=== PATIENT | male | born 1950 | race Two or more races ===

== ENCOUNTER 2016-10-25 09:12 | Inpatient (IN) | payer MEDICAID ==
[~2016-10-25] VITALS: Ht 172.7 cm; Wt 59.0 kg
[2016-10-25] MEDS ORDERED: NKM (09:18)
[2016-10-25 09:50] VITALS: BP 139/81
[2016-10-25 10:03] LABS: BASOPHILS % (AUTO) 1.2 % (0.0-2.0); EOSINOPHILS % (AUTO) 0.9 % (0.0-3.0); MEAN CORPUSCULAR HGB CONC 31.8 G/DL (32.0-36.0); MEAN CORPUSCULAR VOLUME 88 FL (80-99); MEAN PLATELET VOLUME 8.4 FL (6.5-10.1); MONOCYTES % (AUTO) 9.3 % (1.0-10.0); NEUTROPHILS % (AUTO) 75.7 % (45.0-75.0); PLATELET COUNT 217 K/UL (150-450); RED BLOOD COUNT 5.11 M/UL (4.70-6.10); RED CELL DISTRIBUTION WIDTH 13.9 % (11.6-14.8)
[2016-10-25 10:10] LABS: INR 0.9 (0.9-1.1); PROTHROMBIN TIME 9.6 SEC (9.30-11.50)
[2016-10-25 10:13] LABS: ALANINE AMINOTRANSFERASE 10 U/L (3-41); ALBUMIN/GLOBULIN RATIO 1.2 (1.0-2.7); ANION GAP 14 (5-15); ASPARTATE AMINO TRANSFERASE 16 U/L (5-40); CALCIUM 9.5 mg/dL (8.6-10.2); CARBON DIOXIDE 24 mEQ/L (20-30); CHLORIDE 87 mEQ/L (98-107); CREATININE 1.1 mg/dL (0.7-1.2); GLOMERULAR FILTRATION RATE > 60 mL/min (>60); HEMOLYSIS 8; POTASSIUM 4.7 mEQ/L (3.4-4.9); SODIUM 125 mEQ/L (135-145); TOTAL PROTEIN 7.7 g/dL (6.6-8.7); TROPONIN I < 0.30 ng/mL (<=0.30)
[2016-10-25 10:15] LABS: REFLEX LACTIC ACID YES OR NO YES
[2016-10-25 10:24] LABS: CKMB 4.4 ng/mL (< 6.7)
[2016-10-25] MEDS ORDERED: Ampicillin/Sulbactam Sod 3 GM in NS 110 ML IVPB ONE (10:45)
[2016-10-25] MEDS ORDERED: Unasyn 3gm Inj ONE (10:50)
[2016-10-25 11:15] VITALS: BP 128/79
--- NOTE | 2016-10-25 11:36 | Emergency Room Report ---
History of Present Illness General Chief Complaint: Pain Source: Patient, EMS Present Illness HPI 65-year-old male presents to ER complaining of right leg pain. Patient been on the street. He is homeless. Patient notes having the pain for a long time now. Pain is throbbing, 5/10, nonradiating. Per EMS there are maggots on the right leg. Patient is status post amputation of the left leg. Denies fevers or chills. Denies chest pain or shortness of breath. No aggravating relieving factors. Denies any other associated symptoms Allergies: Coded Allergies: No Known Allergies (Unverified , 11/16/14) Patient History Past Medical History: DM, HTN Past Surgical History: none Pertinent Family History: none Social History: Denies: alcohol use, drug use, smoking Immunizations: UTD Reviewed Nursing Documentation: PMH: Agreed, PSxH: Agreed Nursing Documentation-PMH Hx Hypertension: Yes Hx Diabetes: Yes Review of Systems All Other Systems: negative except mentioned in HPI Physical Exam Vital Signs Date Time Temp Pulse Resp B/P Pulse Ox O2 Delivery O2 Flow Rate FiO2 10/25/16 09:09 90 16 142/78 100 Room Air 10/25/16 09:50 98.5 Sp02 EP Interpretation: reviewed, normal General Appearance: no apparent distress, alert, GCS 15, non-toxic Head: normocephalic Eyes: bilateral eye PERRL, bilateral eye normal inspection ENT: normal ENT inspection Neck: normal inspection Respiratory: chest non-tender, lungs clear, normal breath sounds, speaking full sentences Cardiovascular #1: regular rate, rhythm, no edema Gastrointestinal: normal bowel sounds, non tender, soft, non-distended, no guarding, no rebound Rectal: deferred Genitourinary: no CVA tenderness Musculoskeletal: back normal, gait/station normal, normal range of motion, swelling - RLE, other - s/p amputation of LLE Neurologic: alert, oriented x3, responsive, motor strength/tone normal, sensory intact, speech normal Psychiatric: judgement/insight normal, memory normal, mood/affect normal, no suicidal/homicidal ideation Skin: other - induration/erythema of RLE. maggots noted Lymphatic: no adenopathy Medical Decision Making Diagnostic Impression: Primary Impression: Infestation, maggot Additional Impressions: Cellulitis of right lower extremity Weakness ER Course Hospital Course 65-year-old male presents to ED with pain/swelling to RLE Differential diagnoses include: Cellulitis, abscess, rash. Clinical course Patient placed on stretcher. After initial history and physical I ordered labs , blood Cx, UA, IVFs, CXR labs reviewed - no leukocytosis, Hb/Hct stable, Na low, lactate 2 EKG - sinus tachycardia no acute changes interpreted by me CXR - unremarkable Maggots noted to the right lower extremity antibiotics given. Case discussed with Dr Amador and he agreed to accept the patient to his service for further care and support Diagnosis - maggot infestation, cellulitis of RLE, weakness Patient admitted to floor in serious condition Labs Test 10/25/16 09:20 10/25/16 11:10 White Blood Count 12.0 K/UL (4.8-10.8) Red Blood Count 5.11 M/UL (4.70-6.10) Hemoglobin 14.3 G/DL (14.2-18.0) Hematocrit 45.0 % (42.0-52.0) Mean Corpuscular Volume 88 FL (80-99) Mean Corpuscular Hemoglobin 28.0 PG (27.0-31.0) Mean Corpuscular Hemoglobin Concent 31.8 G/DL (32.0-36.0) Red Cell Distribution Width 13.9 % (11.6-14.8) Platelet Count 217 K/UL (150-450) Mean Platelet Volume 8.4 FL (6.5-10.1) Neutrophils (%) (Auto) 75.7 % (45.0-75.0) Lymphocytes (%) (Auto) 13.0 % (20.0-45.0) Monocytes (%) (Auto) 9.3 % (1.0-10.0) Eosinophils (%) (Auto) 0.9 % (0.0-3.0) Basophils (%) (Auto) 1.2 % (0.0-2.0) Prothrombin Time 9.6 SEC (9.30-11.50) Prothromb Time International Ratio 0.9 (0.9-1.1) Activated Partial Thromboplast Time 28 SEC (23-33) Sodium Level 125 mEQ/L (135-145) Potassium Level 4.7 mEQ/L (3.4-4.9) Chloride Level 87 mEQ/L (98-107) Carbon Dioxide Level 24 mEQ/L (20-30) Anion Gap 14 (5-15) Blood Urea Nitrogen 17 mg/dL (7-23) Creatinine 1.1 mg/dL (0.7-1.2) Estimat Glomerular Filtration Rate > 60 mL/min (>60) Glucose Level 281 mg/dL (74-106) Lactic Acid Level 2.50 mmol/L (0.66-2.22) Calcium Level 9.5 mg/dL (8.6-10.2) Total Bilirubin 0.7 mg/dL (0.0-1.2) Aspartate Amino Transf (AST/SGOT) 16 U/L (5-40) Alanine Aminotransferase (ALT/SGPT) 10 U/L (3-41) Alkaline Phosphatase 183 U/L (40-129) Total Creatine Kinase 148 U/L (38-174) Creatine Kinase MB 4.4 ng/mL (< 6.7) Creatine Kinase MB Relative Index 2.9 Troponin I < 0.30 ng/mL (<=0.30) Pro-B-Type Natriuretic Peptide 165 pg/mL (0-125) Total Protein 7.7 g/dL (6.6-8.7) Albumin 4.2 g/dL (3.5-5.2) Globulin 3.5 g/dL Albumin/Globulin Ratio 1.2 (1.0-2.7) EKG Diagnostic Results Rate: tachycardiac Rhythm: NSR ST Segments: no acute changes ASA given to the pt in ED: No Rhythm Strip Diag. Results EP Interpretation: yes Rhythm: NSR, no PVC's, no ectopy Chest X-Ray Diagnostic Results Chest X-Ray Diagnostic Results : Chest X-Ray Ordered: Yes # of Views/Limited/Complete: 1 View Indication: Other - weakness EP Interpretation: Yes Interpretation: no consolidation, no effusion, no pneumothorax, no acute cardiopulmonary disease Impression: No acute disease Interpreting ER Provider: Electronically signed by Daniel Roy MD Last Vital Signs Date Time Temp Pulse Resp B/P Pulse Ox O2 Delivery O2 Flow Rate FiO2 10/25/16 11:15 89 18 128/79 100 Room Air 10/25/16 09:50 98.5 Status: improved Disposition: ADMITTED INPATIENT Condition: Serious Referrals: NOT CHOSEN EMY/,REFERRING (PCP) DANIEL ROY M.D. Oct 25, 2016 11:36
[2016-10-25] MEDS ORDERED: NovoLOG Insulin Flexpen SUBQ SCH (11:50)
[2016-10-25 12:47] VITALS: BP 156/83
[2016-10-25] MEDS ORDERED: Vancomycin 750mg/D5W 275ml IVPB ONE ×2 (14:00)
[2016-10-25] MEDS: Cefepime HCl 1 GM in D5W 55 ML IVPB SCH ×2 (15:40→23:02)
[2016-10-25] MEDS: NovoLOG Insulin Flexpen SUBQ SCH ×4 (16:17→21:38)
[2016-10-25 16:20] VITALS: BP 133/65
[2016-10-25] MEDS ORDERED: Tubing IV Secondary IV ONE (17:19)
[2016-10-25] MEDS ORDERED: NS 275ml ONE (17:19)
[2016-10-25 20:00] VITALS: BP 136/72
[2016-10-25] MEDS: Heparin 5000 units/ml inj SUBQ SCH (21:34)
[2016-10-26] VITALS: BP 136/62
[2016-10-26] MEDS: Vancomycin 500mg/D5W 110ml IVPB SCH ×4 (02:21→14:00)
--- NOTE | 2016-10-26 02:45 | Consultation ---
DATE OF CONSULTATION: 10/25/2016 INFECTIOUS DISEASE CONSULTATION This consult is for coverage of Dr. Rosales. PRIMARY ATTENDING PHYSICIAN: Colten Amador M.D. REASON FOR CONSULT: Right leg cellulitis with myasis. HISTORY OF PRESENT ILLNESS: This is a 65-year-old male admitted today. The patient is homeless, noticed some pain in right lower extremity, had erythema and discharge from the wound since one week ago. He was recently in the nursing facility, just released two weeks ago. PAST MEDICAL HISTORY: Significant for diabetes mellitus type 2. ALLERGIES: No known drug allergies. MEDICATIONS: Getting vancomycin, heparin, insulin, and sodium chloride. SOCIAL HISTORY: The patient is homeless. He is originally from [place]. He smokes two cigarettes a day. Denies alcohol or drug abuse. REVIEW OF SYSTEMS: No fever. No chills. No coughing. No shortness of breath. No nausea. No vomiting. No diarrhea. No problem in passing urine. PHYSICAL EXAMINATION: VITAL SIGNS: Temperature 98.4, pulse 89, and blood pressure 166/83. GENERAL APPEARANCE: He seems to be thin. No acute distress. HEAD AND NECK: No oral lesion. Mouth, no teeth or dentures. HEART: Regular. LUNGS: Clear. ABDOMEN: Soft and nontender. EXTREMITIES: Have erythema and ulceration in the right lower extremity. There are tiny maggots below the skin. LABORATORY AND DIAGNOSTIC DATA: WBC 12,000, hemoglobin 14.3, hematocrit 45, and platelets 217,000. Sodium 125, potassium 4.7, chloride 87, bicarbonate 24, BUN 17, creatinine 1.1, and glucose of 281. IMPRESSION: Right lower extremity cellulitis with myosis. The patient is diabetic and has hypoglycemia. He is homeless. RECOMMENDATION: Continue with vancomycin. We will start on cefepime. We will obtain culture from the wound. At the end of my exam, I thank Dr. Amador for involving me in the care of this patient. Minh Duque M.D. DR: JAS JOB#: [id number] CC: JAQUAN
--- NOTE | 2016-10-26 03:30 | History and Physical Report ---
DATE OF ADMISSION: 10/25/2016 REASON FOR ADMISSION: Right lower extremity cellulitis. HISTORY OF PRESENT ILLNESS: This is a homeless male, age 65. He has pain in his right leg. He was seen by the paramedics in the field and noted to have maggots on the leg as well as significant redness and drainage. He has had a prior infection of the left leg that resulted in amputation. PAST MEDICAL HISTORY: Diabetes mellitus type 2, hypertension, and peripheral artery disease. ALLERGIES: None known. MEDICATIONS: Prior to admission, none. SOCIAL HISTORY: Denies smoking, alcohol, or substance abuse. FAMILY HISTORY: Noncontributory. REVIEW OF SYSTEMS: A 10-point review of systems performed, pertinent data as outlined above, otherwise all systems negative. PHYSICAL EXAMINATION: VITAL SIGNS: Blood pressure 142/78, heart rate 90, respirations 16, and no fevers. HEENT: Conjunctivae are pink. Oropharynx clear. NECK: Supple. Jugular venous pressure normal. LUNGS: Clear. CARDIAC: Regular rhythm and rate. Normal S1 and S2 with no murmur. ABDOMEN: Soft and nontender. EXTREMITIES: Left lower extremity BKA. Right lower extremity induration and erythema below the knee with some maggots noted. NEUROLOGIC: Reveals symmetric strength and no cognitive impairment. LABORATORY DATA: White count 12, hemoglobin 14. Sodium 125, potassium 4.7, chloride 87, bicarbonate 24, BUN 17, creatinine 1.1, and glucose 281. Lactic acid 2.5. IMPRESSION: 1. Right lower extremity cellulitis with maggot infestation. 2. Type 2 diabetes mellitus with uncontrolled blood glucose. 3. Hypertension, untreated. 4. Hypovolemia. 5. Dehydration. 6. Hyponatremia. 7. Hypochloremia. 8. Chronic diastolic congestive heart failure. 9. Lactic acidosis. PLAN: Inpatient stay. Panculture. Broad-spectrum antibiotics. Wound care. Infectious Disease consultation. Saline hydration. Insulin coverage by sliding scale. Metabolic profile. Hemoglobin A1c. Social service evaluation for assistance with placement. Colten Amador M.D. DR: Betty JOB#: [id number] CC:
[2016-10-26 04:00] VITALS: BP 137/71
[2016-10-26] MEDS: NovoLOG Insulin Flexpen SUBQ SCH ×4 (06:14→21:02)
[2016-10-26 07:08] LABS: EOSINOPHILS % (AUTO) 1.4 % (0.0-3.0); LYMPHOCYTES % (AUTO) 18.8 % (20.0-45.0); MEAN CORPUSCULAR HEMOGLOBIN 30.2 PG (27.0-31.0); MEAN CORPUSCULAR HGB CONC 34.2 G/DL (32.0-36.0); MEAN CORPUSCULAR VOLUME 88 FL (80-99); MEAN PLATELET VOLUME 8.3 FL (6.5-10.1); NEUTROPHILS % (AUTO) 66.7 % (45.0-75.0); PLATELET COUNT 170 K/UL (150-450); RED BLOOD COUNT 3.67 M/UL (4.70-6.10); RED CELL DISTRIBUTION WIDTH 13.8 % (11.6-14.8); WHITE BLOOD COUNT 8.3 K/UL (4.8-10.8)
[2016-10-26 07:25] LABS: ALANINE AMINOTRANSFERASE 6 U/L (3-41); ANION GAP 13 (5-15); ASPARTATE AMINO TRANSFERASE 15 U/L (5-40); CALCIUM 7.7 mg/dL (8.6-10.2); CARBON DIOXIDE 21 mEQ/L (20-30); CHLORIDE 98 mEQ/L (98-107); CREATININE 0.8 mg/dL (0.7-1.2); GLOMERULAR FILTRATION RATE > 60 mL/min (>60); HEMOLYSIS 3; POTASSIUM 3.7 mEQ/L (3.4-4.9); SODIUM 132 mEQ/L (135-145); TOTAL PROTEIN 5.2 g/dL (6.6-8.7)
[2016-10-26 07:27] LABS: THYROID STIMULATING HORMONE 0.762 uIU/mL (0.300-4.500)
[2016-10-26 08:15] VITALS: BP 128/70
--- NOTE | 2016-10-26 08:31 | Diagnostic Imaging Report ---
Indication: Dyspnea Comparison: 11/16/14 A single view chest radiograph was obtained. Findings: Cardiomediastinal appearance is within normal limits for age. Pulmonary vascularity is appropriate. The diaphragmatic contour is smooth and costophrenic angles are sharp. No pleural effusions are identified. The bones are obtained. Impression: No acute findings
[2016-10-26] MEDS: Cefepime HCl 1 GM in D5W 55 ML IVPB SCH ×2 (08:43→21:01)
[2016-10-26] MEDS: Hydrogen Peroxide 473ml Bottle TOPIC SCH (08:44)
[2016-10-26] MEDS: Heparin 5000 units/ml inj SUBQ SCH ×2 (08:44→21:02)
--- NOTE | 2016-10-26 10:39 | Infectious Diseases Prog Note ---
Assessment/Plan Assessment/Plan antibiotics : vancomycin iv, cefepime A 1. right leg cellulitis 2. DM P 1. continue vancomycin iv, cefepime 2. will follow up cultures Subjective ROS Limited/Unobtainable: Yes Allergies: Coded Allergies: No Known Allergies (Unverified , 11/16/14) Objective Vital Signs Last 24 Hour Vital Signs Date Time Temp Pulse Resp B/P Pulse Ox O2 Delivery O2 Flow Rate FiO2 10/26/16 08:15 98.6 84 20 128/70 96 Room Air 10/26/16 04:00 98.8 97 18 137/71 97 Room Air 10/26/16 00:00 98.4 96 18 136/62 96 Room Air 10/25/16 20:00 98.2 97 18 136/72 97 Room Air 10/25/16 16:20 100.4 104 18 133/65 97 Room Air 10/25/16 12:47 98.4 117 20 156/83 100 Room Air 10/25/16 12:23 98.5 89 18 128/79 100 Room Air 10/25/16 11:15 89 18 128/79 100 Room Air Height (Feet): 5 Height (Inches): 8.00 Weight (Pounds): 130 Respiratory/Chest: lungs clear Cardiovascular: normal rate, regular rhythm, no gallop/murmur Abdomen: soft, non tender Laboratory Tests Test 10/25/16 11:10 10/26/16 04:40 Lactic Acid Level 1.20 mmol/L (0.66-2.22) White Blood Count 8.3 K/UL (4.8-10.8) Red Blood Count 3.67 M/UL (4.70-6.10) L Hemoglobin 11.1 G/DL (14.2-18.0) L Hematocrit 32.4 % (42.0-52.0) L Mean Corpuscular Volume 88 FL (80-99) Mean Corpuscular Hemoglobin 30.2 PG (27.0-31.0) Mean Corpuscular Hemoglobin Concent 34.2 G/DL (32.0-36.0) Red Cell Distribution Width 13.8 % (11.6-14.8) Platelet Count 170 K/UL (150-450) Mean Platelet Volume 8.3 FL (6.5-10.1) Neutrophils (%) (Auto) 66.7 % (45.0-75.0) Lymphocytes (%) (Auto) 18.8 % (20.0-45.0) L Monocytes (%) (Auto) 12.0 % (1.0-10.0) H Eosinophils (%) (Auto) 1.4 % (0.0-3.0) Basophils (%) (Auto) 1.0 % (0.0-2.0) Sodium Level 132 mEQ/L (135-145) L Potassium Level 3.7 mEQ/L (3.4-4.9) Chloride Level 98 mEQ/L (98-107) Carbon Dioxide Level 21 mEQ/L (20-30) Anion Gap 13 (5-15) Blood Urea Nitrogen 10 mg/dL (7-23) Creatinine 0.8 mg/dL (0.7-1.2) Estimat Glomerular Filtration Rate > 60 mL/min (>60) Glucose Level 200 mg/dL (74-106) H Hemoglobin A1c 8.2 % (< 6.0) H Calcium Level 7.7 mg/dL (8.6-10.2) L Total Bilirubin 0.4 mg/dL (0.0-1.2) Aspartate Amino Transf (AST/SGOT) 15 U/L (5-40) Alanine Aminotransferase (ALT/SGPT) 6 U/L (3-41) Alkaline Phosphatase 113 U/L (40-129) Total Protein 5.2 g/dL (6.6-8.7) #L Albumin 2.7 g/dL (3.5-5.2) L Globulin 2.5 g/dL Albumin/Globulin Ratio 1.0 (1.0-2.7) Vitamin B12 Level 682 pg/mL (211-946) Folate Pending Thyroid Stimulating Hormone (TSH) 0.762 uIU/mL (0.300-4.500) CLIFTON HORN Oct 26, 2016 10:39
[2016-10-26 12:15] VITALS: BP 141/80
[2016-10-26 15:50] VITALS: BP 144/79
[2016-10-26 19:54] VITALS: BP 154/77
[2016-10-27] VITALS: BP 148/76
--- NOTE | 2016-10-27 01:00 | Progress Note ---
DATE: 10/26/2016 INTERNAL MEDICINE PROGRESS NOTE SUBJECTIVE: Right leg is examined and there is no that was extracted earlier. Pain is decreased. OBJECTIVE: VITAL SIGNS: Temperature max 100.4, blood pressure 128/70, heart rate 84, and respiratory rate 20. LUNGS: Clear. CARDIAC: Regular. No new murmur. ABDOMEN: Soft. EXTREMITIES: Left BKA. Right leg with erythema and drainage. LABORATORY DATA: White count 8.3, hemoglobin 11.1. Sodium 132, potassium 3.7, bicarb 21, BUN 10, creatinine 0.8, and glucose 172 to 100 range. Albumin 2.7. Hemoglobin A1c 8.2. TSH 0.7. IMPRESSION: 1. Right lower extremity wound with cellulitis. 2. Type 2 diabetes mellitus, resolved. 3. Lactic acidosis. 4. Moderate protein-calorie malnutrition. 5. Homelessness. PLAN: Continue wound care. Antimicrobials. Saline hydration. Nutritional support with protein supplement. Await psych social worker assistance for ultimate placement once medically stable for discharge. Add oral hypoglycemic agents and titrate. Colten Amador M.D. DR: SAUL JOB#: [id number] CC:
[2016-10-27] MEDS: Vancomycin 500mg/D5W 110ml IVPB SCH ×2 (02:29)
[2016-10-27 03:55] VITALS: BP 98/48
[2016-10-27] MEDS: NovoLOG Insulin Flexpen SUBQ SCH ×4 (06:06→20:41)
[2016-10-27] MEDS: metFORMIN 500mg tab ORAL SCH ×2 (06:13→17:08)
[2016-10-27] MEDS ORDERED: Vancomycin 750mg/D5W 275ml IVPB SCH ×2 (08:00)
[2016-10-27 08:58] VITALS: BP 113/70
[2016-10-27] MEDS: Cefepime HCl 1 GM in D5W 55 ML IVPB SCH ×2 (10:12→21:19)
[2016-10-27] MEDS: Heparin 5000 units/ml inj SUBQ SCH ×2 (10:13→20:40)
[2016-10-27] MEDS: Hydrogen Peroxide 473ml Bottle TOPIC SCH (10:14)
[2016-10-27 12:54] VITALS: BP 143/76
--- NOTE | 2016-10-27 14:33 | Infectious Diseases Prog Note ---
Assessment/Plan Assessment/Plan A 1. right leg cellulitis 2. DM 3. Myasis P 1. continue vancomycin iv, cefepime 2. will follow up cultures Subjective ROS Limited/Unobtainable: No Constitutional: Reports: no symptoms Respiratory: Reports: no symptoms Gastrointestinal/Abdominal: Reports: no symptoms Musculoskeletal: Reports: other - in right leg, pain Allergies: Coded Allergies: No Known Allergies (Unverified , 11/16/14) Objective Vital Signs Last 24 Hour Vital Signs Date Time Temp Pulse Resp B/P Pulse Ox O2 Delivery O2 Flow Rate FiO2 10/27/16 12:54 99.3 79 19 143/76 97 Room Air 10/27/16 08:58 97.0 76 19 113/70 99 Room Air 10/27/16 03:55 98.2 74 18 98/48 97 Room Air 10/27/16 00:00 98.4 87 18 148/76 96 Room Air 10/26/16 19:54 99.1 89 18 154/77 97 Room Air 10/26/16 15:50 98.6 90 20 144/79 98 Room Air Height (Feet): 5 Height (Inches): 8.00 Weight (Pounds): 130 General Appearance: no acute distress HEENT: mucous membranes moist Respiratory/Chest: lungs clear Cardiovascular: normal rate Abdomen: soft, non tender Extremities: other - R leg dressing Neurologic/Psychiatric: alert, responsive Microbiology Date/Time Source Procedure Growth Status 10/25/16 09:20 Blood Blood Culture - Preliminary NO GROWTH AFTER 24 HOURS Resulted 10/25/16 09:20 Blood Blood Culture - Preliminary NO GROWTH AFTER 24 HOURS Resulted 10/25/16 09:20 Nasal Nares MRSA Culture - Final NO METHICILLIN RESISTANT STAPH AUREUS... Complete 10/25/16 14:45 Leg Right Gram Stain - Final Resulted 10/25/16 14:45 Wound Culture - Preliminary Gram Negative Bacillus 1 Gram Negative Bacillus 2 Gram Negative Bacillus 3 Staphylococcus Aureus Resulted 10/25/16 09:20 Rectum VRE Culture - Final NO VANCOMYCIN RESISTANT ENTEROCOCCUS ... Complete Laboratory Tests Test 10/27/16 00:50 Hemoglobin A1c 7.9 % (< 6.0) H Vancomycin Level Trough 6.0 ug/mL (5.0-12.0) Current Medications Medications (Trade) Dose Ordered Sig/Caden Route PRN Reason Start Time Stop Time Status Last Admin Dose Admin Acetaminophen (Tylenol) 650 mg EVERY 4 HOURS PRN ORAL fever/MENDOZA/pain 10/25/16 13:00 11/24/16 12:59 10/26/16 21:00 Cefepime HCl/ Dextrose (Maxipime/D5W) 55 ml @ 110 mls/hr EVERY 12 HOURS IVPB 10/25/16 15:00 11/01/16 14:59 10/27/16 10:12 Dextrose (Dextrose 50%) STAT PRN IV Hypoglycemia 10/25/16 13:00 11/24/16 12:59 Heparin Sodium (Porcine) (Heparin 5000 units/ml) 5,000 units EVERY 12 HOURS SUBQ 10/25/16 21:00 11/24/16 20:59 10/27/16 10:13 Hydrogen Peroxide (Hydrogen Peroxide) 1 applic DAILY TOPIC 10/26/16 09:00 11/25/16 08:59 10/27/16 10:14 Insulin Aspart (NovoLOG) BEFORE MEALS AND HS SUBQ 10/25/16 16:30 11/24/16 16:29 10/27/16 12:12 Metformin HCl 500 mg 500 mg BIAC ORAL 10/27/16 06:30 11/26/16 06:29 10/27/16 06:13 Sodium Chloride (Sodium Chloride 1000ml bag) 1,000 ml @ 150 mls/hr Q6H40M IV 10/25/16 13:00 11/24/16 12:59 10/27/16 13:09 Vancomycin HCl 1 ea 1 ea DAILY PRN MISC Per rx protocol 10/25/16 13:00 11/24/16 12:59 Vancomycin HCl/ Dextrose (Vancomycin/D5W) 275 ml @ 183.708 mls/hr Q24H IVPB 10/27/16 08:00 11/01/16 07:59 10/27/16 08:39 AUBREY ALEXIS Oct 27, 2016 14:33
[2016-10-27 16:02] VITALS: BP 152/81
[2016-10-27] MEDS: Vancomycin 750mg/D5W 275ml IVPB SCH ×2 (19:45)
[2016-10-27 20:00] VITALS: BP 147/61
[2016-10-28 00:21] VITALS: BP 144/70
--- NOTE | 2016-10-28 03:45 | Progress Note ---
DATE: 10/27/2016 INTERNAL MEDICINE PROGRESS NOTE SUBJECTIVE: The patient has no new complaints. He has been started on oral hypoglycemics. He is defervescing. Vitals are stable. Wound care ongoing, only one maggot noted today. PHYSICAL EXAMINATION: LUNGS: With good breath sounds. HEART: Regular rhythm and rate. Normal S1, S2. EXTREMITIES: Left BKA. Right foot dressing in place. LABORATORY DATA: Laboratories reviewed. IMPRESSION: 1. Right lower extremity wounds and cellulitis with maggots. 2. Type 2 diabetes mellitus. 3. Possible hypertension. PLAN: 1. Antibiotics. 2. Wound care. 3. Titrate oral hypoglycemics. 4. Social service for placement options. Colten Amador M.D. DR: DEONDRE JOB#: [id number] CC:
[2016-10-28 04:23] VITALS: BP 140/74
[2016-10-28] MEDS: metFORMIN 500mg tab ORAL SCH ×2 (05:47→17:08)
[2016-10-28] MEDS: NovoLOG Insulin Flexpen SUBQ SCH ×4 (05:50→20:14)
[2016-10-28] MEDS: Vancomycin 750mg/D5W 275ml IVPB SCH ×4 (07:59→21:42)
[2016-10-28 08:39] VITALS: BP 122/54
[2016-10-28] MEDS: Cefepime HCl 1 GM in D5W 55 ML IVPB SCH ×2 (10:10→20:12)
[2016-10-28] MEDS: Hydrogen Peroxide 473ml Bottle TOPIC SCH (10:10)
[2016-10-28] MEDS: Heparin 5000 units/ml inj SUBQ SCH ×2 (10:14→20:13)
[2016-10-28 11:59] VITALS: BP 149/79
--- NOTE | 2016-10-28 12:24 | Infectious Diseases Prog Note ---
"Assessment/Plan Assessment/Plan antibiotics : vancomycin iv, cefepime A 1. right leg cellulitis with staph aureus | serratia | providencia | morganella 2. DM 3. myasis P 1. continue vancomycin iv, cefepime 2. will follow up cultures Subjective Constitutional: Denies: chills, fever Respiratory: Denies: dry cough, shortness of breath Gastrointestinal/Abdominal: Denies: diarrhea, nausea, vomiting Musculoskeletal: Denies: pain Allergies: Coded Allergies: No Known Allergies (Unverified , 11/16/14) Objective Vital Signs Last 24 Hour Vital Signs Date Time Temp Pulse Resp B/P Pulse Ox O2 Delivery O2 Flow Rate FiO2 10/28/16 11:59 97.9 76 20 149/79 99 Room Air 10/28/16 08:39 98.6 74 20 122/54 96 Room Air 10/28/16 04:23 98.7 88 20 140/74 98 Room Air 10/28/16 00:21 98.8 88 20 144/70 98 Room Air 10/27/16 20:00 98.8 88 20 147/61 98 Room Air 10/27/16 16:02 98.1 84 21 152/81 97 Room Air 10/27/16 12:54 99.3 79 19 143/76 97 Room Air Height (Feet): 5 Height (Inches): 8.00 Weight (Pounds): 130 Respiratory/Chest: lungs clear Cardiovascular: normal rate, regular rhythm, no gallop/murmur Abdomen: soft, non tender Extremities: no edema Microbiology Date/Time Source Procedure Growth Status 10/25/16 14:45 Leg Right Gram Stain - Final Complete 10/25/16 14:45 Wound Culture - Final Providencia Stuartii Serratia Marcescens Morganella Morg Spp Morganii Staphylococcus Aureus Complete CLIFTON HORN Oct 28, 2016 12:24"
[2016-10-28 16:07] VITALS: BP 158/84
[2016-10-28 20:00] VITALS: BP 156/82
[2016-10-29] VITALS (7 sets, daily range): BP systolic 119–161; BP diastolic 59–90
--- NOTE | 2016-10-29 03:00 | Progress Note ---
DATE: 10/25/2016 No new distress, ongoing wound care. Afebrile, vital signs are stable. Cultures with multiple pathogens as noted in the report. The patient continues on broad-spectrum antibiotics for polymicrobial right lower extremity wound infection cellulitis. Glucose control slightly improved with addition of oral hypoglycemics. We will continue to follow clinical parameters. We will also continue efforts at placement once medically stable for a lower level of care. Colten Amador M.D. DR: DENIZ JOB#: [id number] CC:
[2016-10-29] MEDS: metFORMIN 500mg tab ORAL SCH ×2 (05:46→17:03)
[2016-10-29] MEDS: NovoLOG Insulin Flexpen SUBQ SCH ×4 (05:47→20:58)
[2016-10-29 07:24] LABS: BASOPHILS % (AUTO) 1.6 % (0.0-2.0); EOSINOPHILS % (AUTO) 2.5 % (0.0-3.0); LYMPHOCYTES % (AUTO) 26.8 % (20.0-45.0); MEAN CORPUSCULAR HEMOGLOBIN 29.4 PG (27.0-31.0); MEAN CORPUSCULAR HGB CONC 33.6 G/DL (32.0-36.0); MEAN CORPUSCULAR VOLUME 88 FL (80-99); MEAN PLATELET VOLUME 8.1 FL (6.5-10.1); MONOCYTES % (AUTO) 14.5 % (1.0-10.0); NEUTROPHILS % (AUTO) 54.6 % (45.0-75.0); PLATELET COUNT 194 K/UL (150-450); RED CELL DISTRIBUTION WIDTH 13.2 % (11.6-14.8); WHITE BLOOD COUNT 7.4 K/UL (4.8-10.8)
[2016-10-29 07:45] LABS: ALANINE AMINOTRANSFERASE 6 U/L (3-41); ANION GAP 10 (5-15); ASPARTATE AMINO TRANSFERASE 13 U/L (5-40); CARBON DIOXIDE 30 mEQ/L (20-30); CHLORIDE 97 mEQ/L (98-107); CREATININE 0.7 mg/dL (0.7-1.2); GLOMERULAR FILTRATION RATE > 60 mL/min (>60); HEMOLYSIS 3; MAGNESIUM 1.4 mg/dL (1.7-2.5); POTASSIUM 3.1 mEQ/L (3.4-4.9); SODIUM 137 mEQ/L (135-145)
[2016-10-29] MEDS: Vancomycin 750mg/D5W 275ml IVPB SCH ×2 (08:10)
[2016-10-29] MEDS: Cefepime HCl 1 GM in D5W 55 ML IVPB SCH ×2 (09:54→21:17)
[2016-10-29] MEDS: Heparin 5000 units/ml inj SUBQ SCH ×2 (09:55→20:49)
[2016-10-29] MEDS: Hydrogen Peroxide 473ml Bottle TOPIC SCH (09:55)
--- NOTE | 2016-10-29 12:40 | Cardiology Report ---
APPROVED REPORT EKG Measurement Heart [id number] Sinus tachycardia Otherwise normal ECG
--- NOTE | 2016-10-29 13:12 | Infectious Diseases Prog Note ---
Assessment/Plan Assessment/Plan A 1. right leg cellulitis with MSSA, serratia, Providencia & Morganella 2. DM 3. Myasis P 1. discontinue vancomycin iv, cefepime 2. start on PO Bactrim Subjective ROS Limited/Unobtainable: No Constitutional: Reports: no symptoms Respiratory: Reports: no symptoms Cardiovascular: Reports: no symptoms Gastrointestinal/Abdominal: Reports: no symptoms Musculoskeletal: Reports: other - in right leg, pain Allergies: Coded Allergies: No Known Allergies (Unverified , 11/16/14) Objective Vital Signs Last 24 Hour Vital Signs Date Time Temp Pulse Resp B/P Pulse Ox O2 Delivery O2 Flow Rate FiO2 10/29/16 11:59 97.9 70 18 147/74 97 Room Air 10/29/16 08:00 97.7 72 19 119/59 97 Room Air 10/29/16 05:08 97.7 66 18 128/90 95 Room Air 10/29/16 04:00 97.5 107 21 141/90 97 Nasal Cannula 2.0 10/29/16 00:00 98.2 81 18 153/80 99 Room Air 10/28/16 20:00 98.6 80 18 156/82 97 Room Air 10/28/16 16:07 98.1 76 20 158/84 97 Room Air Height (Feet): 5 Height (Inches): 8.00 Weight (Pounds): 130 General Appearance: no acute distress HEENT: mucous membranes moist Respiratory/Chest: lungs clear Cardiovascular: normal rate Abdomen: soft, non tender Extremities: no edema, other - R leg ulcer, left BKA Neurologic/Psychiatric: alert, responsive Laboratory Tests Test 10/28/16 20:20 10/29/16 04:40 Vancomycin Level Trough 9.6 ug/mL (5.0-12.0) White Blood Count 7.4 K/UL (4.8-10.8) Red Blood Count 3.80 M/UL (4.70-6.10) L Hemoglobin 11.2 G/DL (14.2-18.0) L Hematocrit 33.3 % (42.0-52.0) L Mean Corpuscular Volume 88 FL (80-99) Mean Corpuscular Hemoglobin 29.4 PG (27.0-31.0) Mean Corpuscular Hemoglobin Concent 33.6 G/DL (32.0-36.0) Red Cell Distribution Width 13.2 % (11.6-14.8) Platelet Count 194 K/UL (150-450) Mean Platelet Volume 8.1 FL (6.5-10.1) Neutrophils (%) (Auto) 54.6 % (45.0-75.0) Lymphocytes (%) (Auto) 26.8 % (20.0-45.0) Monocytes (%) (Auto) 14.5 % (1.0-10.0) H Eosinophils (%) (Auto) 2.5 % (0.0-3.0) Basophils (%) (Auto) 1.6 % (0.0-2.0) Sodium Level 137 mEQ/L (135-145) Potassium Level 3.1 mEQ/L (3.4-4.9) L Chloride Level 97 mEQ/L (98-107) L Carbon Dioxide Level 30 mEQ/L (20-30) Anion Gap 10 (5-15) Blood Urea Nitrogen 7 mg/dL (7-23) Creatinine 0.7 mg/dL (0.7-1.2) Estimat Glomerular Filtration Rate > 60 mL/min (>60) Glucose Level 218 mg/dL (74-106) H Calcium Level 8.0 mg/dL (8.6-10.2) L Magnesium Level 1.4 mg/dL (1.7-2.5) L Total Bilirubin 0.3 mg/dL (0.0-1.2) Aspartate Amino Transf (AST/SGOT) 13 U/L (5-40) Alanine Aminotransferase (ALT/SGPT) 6 U/L (3-41) Alkaline Phosphatase 120 U/L (40-129) Total Protein 6.0 g/dL (6.6-8.7) L Albumin 3.0 g/dL (3.5-5.2) L Globulin 3.0 g/dL Albumin/Globulin Ratio 1.0 (1.0-2.7) Current Medications Medications (Trade) Dose Ordered Sig/Caden Route PRN Reason Start Time Stop Time Status Last Admin Dose Admin Acetaminophen (Tylenol) 650 mg EVERY 4 HOURS PRN ORAL fever/MENDOZA/pain 10/25/16 13:00 11/24/16 12:59 10/26/16 21:00 Cefepime HCl/ Dextrose (Maxipime/D5W) 55 ml @ 110 mls/hr EVERY 12 HOURS IVPB 10/25/16 15:00 11/01/16 14:59 10/29/16 09:54 Dextrose (Dextrose 50%) STAT PRN IV Hypoglycemia 10/25/16 13:00 11/24/16 12:59 Heparin Sodium (Porcine) (Heparin 5000 units/ml) 5,000 units EVERY 12 HOURS SUBQ 10/25/16 21:00 11/24/16 20:59 10/29/16 09:55 Hydrogen Peroxide (Hydrogen Peroxide) 1 applic DAILY TOPIC 10/26/16 09:00 11/25/16 08:59 10/29/16 09:55 Insulin Aspart (NovoLOG) BEFORE MEALS AND HS SUBQ 10/25/16 16:30 11/24/16 16:29 10/29/16 05:47 Metformin HCl 500 mg 500 mg BIAC ORAL 10/27/16 06:30 11/26/16 06:29 10/29/16 05:46 Sodium Chloride (Sodium Chloride 1000ml bag) 1,000 ml @ 150 mls/hr Q6H40M IV 10/25/16 13:00 11/24/16 12:59 10/29/16 11:48 Vancomycin HCl 1 ea 1 ea DAILY PRN MISC Per rx protocol 10/25/16 13:00 11/24/16 12:59 Vancomycin HCl/ Dextrose (Vancomycin/D5W) 275 ml @ 183.708 mls/hr Q12HR@0800,2000 IVPB 10/27/16 20:00 11/01/16 19:59 10/29/16 08:10 AUBREY ALEXIS Oct 29, 2016 13:12
[2016-10-29] MEDS ORDERED: Bactrim DS (160mg/800mg) tab ORAL SCH (21:00)
--- NOTE | 2016-10-29 23:02 | Progress Note ---
CARDIOLOGY PROGRESS NOTE SUBJECTIVE: The patient has no new complaints. He continues to receive antibiotic therapy. Cultures of the wound revealed multiple pathogens. OBJECTIVE: VITAL SIGNS: Blood pressure 147/74, pulse 70, respirations 18, and afebrile. LUNGS: Clear. CARDIAC: Regular. ABDOMEN: Soft and nontender. EXTREMITIES: Right leg ulcer with no active drainage or maggots noted today. Left BKA stump clean. LABORATORY DATA: Notable for potassium of 3.1, magnesium 1.4, and albumin of 3. IMPRESSION: 1. Right lower extremity cellulitis and ulcer. 2. Hypokalemia. 3. Hypomagnesemia. 4. Type 2 diabetes mellitus. 5. Homelessness. 6. Mild protein-calorie malnutrition. PLAN: 1. Continue intravenous antibiotics. 2. Continue efforts to secure intermediate facility for wound care. 3. Replace electrolytes. 4. Continue nutritional support. 5. Titrate oral hypoglycemic regimen. Colten Amador M.D. DR: DEONDRE JOB#: [id number] CC:
[2016-10-30] VITALS (7 sets, daily range): BP systolic 119–163; BP diastolic 62–87
[2016-10-30] MEDS: metFORMIN 500mg tab ORAL SCH ×2 (05:59→16:46)
[2016-10-30] MEDS: NovoLOG Insulin Flexpen SUBQ SCH ×5 (06:01→20:39)
[2016-10-30 07:39] LABS: ANION GAP 8 (5-15); CALCIUM 8.8 mg/dL (8.6-10.2); CARBON DIOXIDE 30 mEQ/L (20-30); CHLORIDE 96 mEQ/L (98-107); CREATININE 0.8 mg/dL (0.7-1.2); GLOMERULAR FILTRATION RATE > 60 mL/min (>60); HEMOLYSIS 4; POTASSIUM 4.6 mEQ/L (3.4-4.9); SODIUM 134 mEQ/L (135-145)
[2016-10-30] MEDS: Cefepime HCl 1 GM in D5W 55 ML IVPB SCH ×2 (08:54→19:57)
[2016-10-30] MEDS: Hydrogen Peroxide 473ml Bottle TOPIC SCH (08:54)
[2016-10-30] MEDS: Heparin 5000 units/ml inj SUBQ SCH ×2 (08:55→20:35)
--- NOTE | 2016-10-30 10:35 | Infectious Diseases Prog Note ---
"Assessment/Plan Assessment/Plan antibiotics : bactrim A 1. right leg cellulitis with staph aureus | serratia | providencia | morganella 2. DM 3. myasis P 1. continue bactrim 4 more days 2. will follow up cultures Subjective ROS Limited/Unobtainable: Yes Allergies: Coded Allergies: No Known Allergies (Unverified , 11/16/14) Objective Vital Signs Last 24 Hour Vital Signs Date Time Temp Pulse Resp B/P Pulse Ox O2 Delivery O2 Flow Rate FiO2 10/30/16 08:00 97.9 73 19 139/76 99 Room Air 10/30/16 04:22 97.0 77 20 150/76 98 Room Air 10/30/16 00:08 97.8 78 20 119/62 98 Room Air 10/29/16 20:46 97.7 67 20 146/77 98 Room Air 10/29/16 16:00 98.5 72 20 161/82 97 Nasal Cannula 10/29/16 11:59 97.9 70 18 147/74 97 Room Air Height (Feet): 5 Height (Inches): 8.00 Weight (Pounds): 130 Respiratory/Chest: lungs clear Cardiovascular: normal rate, regular rhythm, no gallop/murmur Abdomen: soft, non tender Extremities: no edema, other - right leg in dressings Laboratory Tests Test 10/30/16 05:50 Sodium Level 134 mEQ/L (135-145) L Potassium Level 4.6 mEQ/L (3.4-4.9) Chloride Level 96 mEQ/L (98-107) L Carbon Dioxide Level 30 mEQ/L (20-30) Anion Gap 8 (5-15) Blood Urea Nitrogen 10 mg/dL (7-23) Creatinine 0.8 mg/dL (0.7-1.2) Estimat Glomerular Filtration Rate > 60 mL/min (>60) Glucose Level 242 mg/dL (74-106) H Calcium Level 8.8 mg/dL (8.6-10.2) CLIFTON HORN Oct 30, 2016 10:35"
[2016-10-30] MEDS ORDERED: Tubing IV Secondary IV ONE (14:51)
[2016-10-31 01:00] VITALS: BP 127/68
[2016-10-31 04:00] VITALS: BP 125/71
[2016-10-31] MEDS: NovoLOG Insulin Flexpen SUBQ SCH ×4 (06:18→21:00)
[2016-10-31] MEDS: metFORMIN 500mg tab ORAL SCH ×2 (06:18→16:45)
[2016-10-31 08:20] VITALS: BP 106/58
[2016-10-31] MEDS: Cefepime HCl 1 GM in D5W 55 ML IVPB SCH ×2 (08:55→21:34)
[2016-10-31] MEDS: Hydrogen Peroxide 473ml Bottle TOPIC SCH (08:55)
[2016-10-31] MEDS: Heparin 5000 units/ml inj SUBQ SCH ×2 (08:56→21:58)
--- NOTE | 2016-10-31 11:16 | Infectious Diseases Prog Note ---
"Assessment/Plan Assessment/Plan antibiotics : cefepime A 1. right leg cellulitis with staph aureus | serratia | providencia | morganella 2. DM 3. myasis P 1. continue cefepime 3 more days 2. will follow up cultures Subjective Constitutional: Denies: chills, fever Respiratory: Denies: dry cough, shortness of breath Gastrointestinal/Abdominal: Denies: diarrhea, nausea, vomiting Musculoskeletal: Denies: pain Allergies: Coded Allergies: No Known Allergies (Unverified , 11/16/14) Objective Vital Signs Last 24 Hour Vital Signs Date Time Temp Pulse Resp B/P Pulse Ox O2 Delivery O2 Flow Rate FiO2 10/31/16 08:20 97.7 74 20 106/58 97 Room Air 10/31/16 04:00 97.9 67 20 125/71 97 Room Air 10/31/16 01:00 97.9 71 18 127/68 97 Room Air 10/30/16 20:00 98.1 75 20 157/85 96 Room Air 10/30/16 17:05 73 150/79 10/30/16 16:00 97.9 70 20 163/87 98 Room Air 10/30/16 11:55 97.9 76 20 146/75 95 Room Air Height (Feet): 5 Height (Inches): 8.00 Weight (Pounds): 130 Respiratory/Chest: lungs clear Cardiovascular: normal rate, regular rhythm, no gallop/murmur Abdomen: soft, non tender Extremities: no edema, other - right leg in dressings CLIFTON HORN Oct 31, 2016 11:16"
[2016-10-31 11:34] VITALS: BP 110/61
[2016-10-31 16:17] VITALS: BP 151/86
[2016-10-31 20:00] VITALS: BP 155/86
--- NOTE | 2016-10-31 23:30 | Progress Note ---
DATE: 10/30/2016 LATE ENTRY INTERNAL MEDICINE PROGRESS NOTE: SUBJECTIVE: The patient continues on IV antibiotics. Glucose in the 200 to 220 range. OBJECTIVE: VITAL SIGNS: Blood pressure is 139/76, heart rate 73, and respiratory rate 19. Wound site with dressing in place. LUNGS: Clear. CARDIAC: Regular with no murmur. ABDOMEN: Benign. LABORATORY DATA: Reviewed. IMPRESSION: 1. Cellulitis in the right lower extremity wound, improving. 2. Left rmyry-rhk-awiw amputation. 3. Diabetes mellitus, type 2. PLAN: 1. Continue antibiotics and wound care. 2. Titrate metformin. 3. Consider addition of angiotensin-converting enzyme inhibitor. 4. Placement issues remain concern. Colten Amador M.D. DR: Lilia JOB#: [id number] CC:
--- NOTE | 2016-10-31 23:45 | Progress Note ---
DATE: 10/31/2016 INTERNAL MEDICINE PROGRESS NOTE SUBJECTIVE: No new complaints. Ongoing wound care and IV antibiotics. Social service assistance for placement is ongoing. OBJECTIVE: VITAL SIGNS: Blood pressure 106/58, pulse 74, and respiratory rate 20. Glucose in the low 200 range. Exam unchanged. PLAN: 1. Advance metformin. 2. Continue antibiotics. 3. Wound care. 4. Placement issues to follow. Colten Amador M.D. DR: CARMELINA JOB#: [id number] CC:
[2016-11-01] VITALS: BP 121/69
[2016-11-01 04:00] VITALS: BP 136/72
[2016-11-01] MEDS: metFORMIN 500mg tab ORAL SCH ×3 (06:22→16:26)
[2016-11-01] MEDS: NovoLOG Insulin Flexpen SUBQ SCH ×5 (06:24→21:48)
[2016-11-01 08:14] VITALS: BP 129/64
[2016-11-01] MEDS: Hydrogen Peroxide 473ml Bottle TOPIC SCH (08:25)
[2016-11-01] MEDS: Heparin 5000 units/ml inj SUBQ SCH ×2 (08:25→21:49)
[2016-11-01] MEDS: Cefepime HCl 1 GM in D5W 55 ML IVPB SCH ×2 (09:00→21:46)
--- NOTE | 2016-11-01 10:13 | Infectious Diseases Prog Note ---
Assessment/Plan Assessment/Plan A 1. right leg cellulitis with MSSA, serratia, Providencia & Morganella 2. DM 3. Myasis P 1. discontinue cefepime X 2 days Subjective ROS Limited/Unobtainable: No Respiratory: Reports: no symptoms Cardiovascular: Reports: no symptoms Gastrointestinal/Abdominal: Reports: no symptoms Genitourinary: Reports: no symptoms Musculoskeletal: Reports: other - in right leg, pain Allergies: Coded Allergies: No Known Allergies (Unverified , 11/16/14) Objective Vital Signs Last 24 Hour Vital Signs Date Time Temp Pulse Resp B/P Pulse Ox O2 Delivery O2 Flow Rate FiO2 11/01/16 08:14 97.9 70 18 129/64 95 Room Air 11/01/16 04:00 97.6 78 20 136/72 96 Room Air 11/01/16 00:00 96.8 74 18 121/69 99 Room Air 10/31/16 20:00 98.2 68 16 155/86 97 Room Air 10/31/16 16:17 98.4 70 20 151/86 97 Room Air 10/31/16 11:34 98.0 76 20 110/61 97 Room Air Height (Feet): 5 Height (Inches): 8.00 Weight (Pounds): 130 General Appearance: no acute distress HEENT: mucous membranes moist Respiratory/Chest: lungs clear Cardiovascular: normal rate Abdomen: soft, non tender Extremities: no edema, other - left BKA, R leg ulcers Neurologic/Psychiatric: alert, oriented x 3, responsive Current Medications Medications (Trade) Dose Ordered Sig/Caden Route PRN Reason Start Time Stop Time Status Last Admin Dose Admin Acetaminophen (Tylenol) 650 mg EVERY 4 HOURS PRN ORAL fever/MENDOZA/pain 10/25/16 13:00 11/24/16 12:59 10/26/16 21:00 Cefepime HCl/ Dextrose (Maxipime/D5W) 55 ml @ 110 mls/hr EVERY 12 HOURS IVPB 10/29/16 21:00 11/05/16 20:59 11/01/16 09:00 Dextrose (Dextrose 50%) STAT PRN IV Hypoglycemia 10/25/16 13:00 11/24/16 12:59 Heparin Sodium (Porcine) (Heparin 5000 units/ml) 5,000 units EVERY 12 HOURS SUBQ 10/25/16 21:00 11/24/16 20:59 11/01/16 08:25 Hydrogen Peroxide 1 applic 1 applic DAILY TOPIC 10/26/16 09:00 11/25/16 08:59 11/01/16 08:25 Insulin Aspart (NovoLOG) BEFORE MEALS AND HS SUBQ 10/25/16 16:30 11/24/16 16:29 10/31/16 12:03 Metformin HCl (Glucophage) 500 mg TIAC ORAL 11/01/16 06:30 12/01/16 06:29 11/01/16 06:22 AUBREY ALEXIS Nov 01, 2016 10:13
[2016-11-01 12:01] VITALS: BP 131/69
[2016-11-01] MEDS ORDERED: Pneumococcal Vaccine 25mcg/0.5ml IM ONE (12:30)
[2016-11-01 16:02] VITALS: BP 142/79
[2016-11-01 20:00] VITALS: BP 105/54
[2016-11-02] VITALS: BP 150/77
[2016-11-02 04:00] VITALS: BP 130/66
[2016-11-02] MEDS: metFORMIN 500mg tab ORAL SCH ×2 (05:46→11:32)
[2016-11-02] MEDS: NovoLOG Insulin Flexpen SUBQ SCH ×2 (05:48→11:32)
--- NOTE | 2016-11-02 06:00 | Progress Note ---
DATE: 11/01/2016 INTERNAL MEDICINE PROGRESS NOTE SUBJECTIVE: The patient is without new complaints. OBJECTIVE: Vital signs stable. Afebrile. Continues with antibiotics and wound care. Exam shows decreasing erythema of the right limb, otherwise unchanged. We will await further stability for self-care prior to discharge. Repeat lab studies ordered. Colten Amador M.D. DR: MATILDE JOB#: [id number] CC:
[2016-11-02 06:15] LABS: BASOPHILS % (AUTO) 1.5 % (0.0-2.0); EOSINOPHILS % (AUTO) 1.7 % (0.0-3.0); LYMPHOCYTES % (AUTO) 27.9 % (20.0-45.0); MEAN CORPUSCULAR HEMOGLOBIN 30.1 PG (27.0-31.0); MEAN CORPUSCULAR HGB CONC 34.1 G/DL (32.0-36.0); MEAN CORPUSCULAR VOLUME 88 FL (80-99); MEAN PLATELET VOLUME 8.2 FL (6.5-10.1); MONOCYTES % (AUTO) 10.5 % (1.0-10.0); NEUTROPHILS % (AUTO) 58.3 % (45.0-75.0); PLATELET COUNT 258 K/UL (150-450); RED BLOOD COUNT 3.89 M/UL (4.70-6.10); RED CELL DISTRIBUTION WIDTH 13.7 % (11.6-14.8); WHITE BLOOD COUNT 9.7 K/UL (4.8-10.8)
[2016-11-02 06:35] LABS: ALANINE AMINOTRANSFERASE 13 U/L (3-41); ALBUMIN/GLOBULIN RATIO 1.1 (1.0-2.7); ANION GAP 9 (5-15); ASPARTATE AMINO TRANSFERASE 22 U/L (5-40); CALCIUM 9.6 mg/dL (8.6-10.2); CARBON DIOXIDE 29 mEQ/L (20-30); CHLORIDE 99 mEQ/L (98-107); CREATININE 0.9 mg/dL (0.7-1.2); GLOMERULAR FILTRATION RATE > 60 mL/min (>60); HEMOLYSIS 1; MAGNESIUM 1.6 mg/dL (1.7-2.5); POTASSIUM 5.1 mEQ/L (3.4-4.9); SODIUM 137 mEQ/L (135-145); TOTAL PROTEIN 6.4 g/dL (6.6-8.7)
[2016-11-02 08:00] VITALS: BP 120/60
[2016-11-02] MEDS: Cefepime HCl 1 GM in D5W 55 ML IVPB SCH (08:30)
[2016-11-02] MEDS: Heparin 5000 units/ml inj SUBQ SCH (08:37)
[2016-11-02] MEDS: Hydrogen Peroxide 473ml Bottle TOPIC SCH (08:38)
[2016-11-02 12:00] VITALS: BP 135/70
--- NOTE | 2016-11-02 12:14 | Infectious Diseases Prog Note ---
"Assessment/Plan Assessment/Plan antibiotics : cefepime A 1. right leg cellulitis with staph aureus | serratia | providencia | morganella 2. DM 3. myasis P 1. d/c cefepime 2. observe off antibiotics Subjective Constitutional: Denies: chills, fever Respiratory: Denies: dry cough, shortness of breath Gastrointestinal/Abdominal: Denies: diarrhea, nausea, vomiting Musculoskeletal: Denies: pain Allergies: Coded Allergies: No Known Allergies (Unverified , 11/16/14) Objective Vital Signs Last 24 Hour Vital Signs Date Time Temp Pulse Resp B/P Pulse Ox O2 Delivery O2 Flow Rate FiO2 11/02/16 08:00 97.9 64 18 120/60 96 Room Air 11/02/16 04:00 98.4 66 18 130/66 97 Room Air 11/02/16 01:41 98.9 11/02/16 00:00 100.0 80 20 150/77 98 Room Air 11/01/16 20:00 99.3 74 18 105/54 95 Room Air 11/01/16 16:02 98.4 70 18 142/79 96 Room Air Height (Feet): 5 Height (Inches): 8.00 Weight (Pounds): 130 Respiratory/Chest: lungs clear Cardiovascular: normal rate, regular rhythm, no gallop/murmur Abdomen: soft, non tender Extremities: no edema Laboratory Tests Test 11/02/16 05:45 White Blood Count 9.7 K/UL (4.8-10.8) Red Blood Count 3.89 M/UL (4.70-6.10) L Hemoglobin 11.7 G/DL (14.2-18.0) L Hematocrit 34.3 % (42.0-52.0) L Mean Corpuscular Volume 88 FL (80-99) Mean Corpuscular Hemoglobin 30.1 PG (27.0-31.0) Mean Corpuscular Hemoglobin Concent 34.1 G/DL (32.0-36.0) Red Cell Distribution Width 13.7 % (11.6-14.8) Platelet Count 258 K/UL (150-450) Mean Platelet Volume 8.2 FL (6.5-10.1) Neutrophils (%) (Auto) 58.3 % (45.0-75.0) Lymphocytes (%) (Auto) 27.9 % (20.0-45.0) Monocytes (%) (Auto) 10.5 % (1.0-10.0) H Eosinophils (%) (Auto) 1.7 % (0.0-3.0) Basophils (%) (Auto) 1.5 % (0.0-2.0) Sodium Level 137 mEQ/L (135-145) Potassium Level 5.1 mEQ/L (3.4-4.9) H Chloride Level 99 mEQ/L (98-107) Carbon Dioxide Level 29 mEQ/L (20-30) Anion Gap 9 (5-15) Blood Urea Nitrogen 18 mg/dL (7-23) Creatinine 0.9 mg/dL (0.7-1.2) Estimat Glomerular Filtration Rate > 60 mL/min (>60) Glucose Level 240 mg/dL (74-106) H Calcium Level 9.6 mg/dL (8.6-10.2) Magnesium Level 1.6 mg/dL (1.7-2.5) L Total Bilirubin < 0.2 mg/dL (0.0-1.2) Aspartate Amino Transf (AST/SGOT) 22 U/L (5-40) Alanine Aminotransferase (ALT/SGPT) 13 U/L (3-41) Alkaline Phosphatase 80 U/L (40-129) Total Protein 6.4 g/dL (6.6-8.7) L Albumin 3.4 g/dL (3.5-5.2) L Globulin 3.0 g/dL Albumin/Globulin Ratio 1.1 (1.0-2.7) CLIFTON HORN Nov 02, 2016 12:14"
[2016-11-02] MEDS ORDERED: METFORMIN HCL1000 M1 ORAL (13:52)
[2016-11-02] MEDS ORDERED: NS 275ml ONE (14:29)
[2016-11-02] MEDS ORDERED: Tubing IV Secondary IV ONE (14:29)
[2016-11-02 16:00] VITALS: BP 156/79
--- NOTE | 2016-11-02 16:06 | Wound Nurse Progress Note ---
Wound RN Progress Note Wound Consult Right leg cellulitis with open wounds, erythema and dry scabs. No new recommendation at this time. Follow MD order. WES PALOMARES RN Nov 02, 2016 16:06
[2016-11-02] MEDS ORDERED: metFORMIN 500mg tab ORAL SCH (18:00)
--- NOTE | 2016-11-05 06:16 | Discharge Summary 2 SIG ---
DATE OF ADMISSION: 10/25/2016 DATE OF DISCHARGE: 11/02/2016 REASON FOR ADMISSION: This is a 65-year-old homeless male with past medical history significant for diabetes, hypertension, peripheral arterial disease, and left BKA, presented with painful right leg, noted significant erythema and purulent drainage as well as infestation with maggots. The patient had a prior infection of the left leg, which resulted in amputation. In the emergency department, white blood count was 12, sodium was 125, blood sugar was 281, troponin was negative, lactic acid 2.5, Pro-BNP 165, and the patient admitted for further management. ADMITTING DIAGNOSES: 1. Right lower extremity cellulitis with maggot infestation. 2. Diabetes mellitus x2, out of control. 3. Hypertension. 4. Dehydration, secondary to hypovolemia and electrolyte imbalance; hyponatremia and hypochloremia. 5. Chronic diastolic congestive heart failure. 6. Lactic acidosis. HOSPITAL COURSE: The patient admitted. The patient pancultured. The patient started on empiric antibiotics. Wound care provided. Infectious Disease consult requested. The patient started on IV hydration. Electrolytes were closely monitored and replaced as needed. Sodium and chloride were corrected. The patient also has hypokalemia and hypomagnesemia, which were corrected as well. Blood sugar was covered with sliding scale of insulin. Upon discharge, metformin was ordered. Hemoglobin A1c 8.2, not at goal. The patient need further optimization of anti-glycemic as outpatient. Social service was involved for assistance with placement. Placement was found recuperative care. The patient was taught self wound care by wound nurse specialist. Leukocytosis resolved, status post antibiotic treatment. The patient was stable for discharge to the recuperative care. DISCHARGE DIAGNOSES: 1. Right lower extremity cellulitis with maggot infestation, status post treatment. 2. Right lower extremity ulcer. 3. Diabetes mellitus, out of control. 4. Hypertension. 5. Dehydration, secondary to hypovolemia, resolved. 6. Electrolyte imbalance; hyponatremia, hypochloremia, hypokalemia, and hypomagnesemia. 7. Chronic diastolic congestive heart failure. 8. Lactic acidosis. 9. Left rkzrs-bqc-odik amputation. 10. Protein-calorie malnutrition. DISCHARGE MEDICATIONS: See medication reconciliation list. DISCHARGE INSTRUCTIONS: The patient discharged to the recuperative care. Follow up with primary medical doctor. Colten Amador M.D. I have been assigned to dictate discharge summary on this account and I was not involved in the patient's management. Waleska Bhakta (vanchtein) NVega DR: Teja JOB#: [id number] CC:
== END 2016-11-02 14:30 | disposition home or self-care (01) | DRG 383 ==
LOC: EDBD 09:12 → EMR 09:23 → EDBEDREQ 11:48 → 4W 12:13
DX: L03.115 Cellulitis of right lower limb (principal); E87.2 Acidosis; E44.0 Moderate protein-calorie malnutrition; I50.32 Chronic diastolic (congestive) heart failure; E11.65 Type 2 diabetes mellitus with hyperglycemia; B87.0 Cutaneous myiasis; E86.1 Hypovolemia; E87.1 Hypo-osmolality and hyponatremia; E86.0 Dehydration; A49.01 Methicillin susceptible Staphylococcus aureus infection, unspecified site; Z59.0 Homelessness; I73.9 Peripheral vascular disease, unspecified; Z89.512 Acquired absence of left leg below knee; E87.8 Other disorders of electrolyte and fluid balance, not elsewhere classified; Z79.4 Long term (current) use of insulin; I10 Essential (primary) hypertension; B95.61 Methicillin susceptible Staphylococcus aureus infection as the cause of diseases classified elsewhere; B96.89 Other specified bacterial agents as the cause of diseases classified elsewhere; E83.42 Hypomagnesemia
CPT/HCPCS: 36415; 71010; 80048; 80053; 80202; 82550; 82553; 82607; 82746; 82962; 83036; 83605; 83735; 83880; 84443; 84484; 85025; 85610; 85730; 87040; 87070; 87081; 87181; 87205; 90732; 93005; 96360; 96361; J1815; J8499

== ENCOUNTER 2016-11-19 12:19 | Inpatient (IN) | payer MEDICAID, SELFPAY ==
[~2016-11-19] VITALS: Ht 165.1 cm; Wt 59.9 kg
[~2016-11-19 12:19] MED LIST: METFORMIN HCL1000 M1 ORAL; NKM
--- NOTE | 2016-11-19 12:36 | Emergency Room Report ---
History of Present Illness General Chief Complaint: Skin Rash/Abscess Source: EMS (Brianna Forbes) Present Illness HPI 65 YO Male presents to the ED c/o 08/22 in severity localized pain, swelling, and erythema of Right leg, x 2 weeks. pt. has left leg BTK amputation. hx of DM , non-compliant with oral medications, pt. states he is homeless and does not have family to care for him. symptoms of the right lower extremity x 2 weeks. Denies abdominal pain, fevers, chills, CP, Palpitations, LOC, AMS, dizziness, Changes in Vision, Sensation, paresthesias, or a sudden severe headache. HPI and ROS is Limited due to pt. being a poor historian. (Brianna Forbes) Allergies: Coded Allergies: No Known Allergies (Unverified , 11/16/14) Patient History Past Medical History: see triage record Past Surgical History: none Pertinent Family History: none Immunizations: UTD Reviewed Nursing Documentation: PMH: Agreed, PSxH: Agreed (Brianna Forbes) Nursing Documentation-PMH Hx Cardiac Problems: Yes Hx Hypertension: Yes Hx Diabetes: Yes Hx Cancer: No Hx Gastrointestinal Problems: No Hx Neurological Problems: No (Brianna Forbes) Review of Systems All Other Systems: limited - Pt is poor historian (Brianna Forbes) Physical Exam Vital Signs Date Time Temp Pulse Resp B/P (MAP) Pulse Ox O2 Delivery O2 Flow Rate FiO2 11/19/16 12:12 98.1 84 20 123/69 99 Room Air Sp02 EP Interpretation: reviewed, normal General Appearance: no apparent distress, Chronically Ill Head: normocephalic, atraumatic Eyes: bilateral eye normal inspection, bilateral eye PERRL ENT: hearing grossly normal, normal pharynx, no angioedema, normal voice Neck: full range of motion Respiratory: lungs clear, normal breath sounds, no respiratory distress, no wheezing, speaking full sentences Cardiovascular #1: regular rate, rhythm, edema - right foot and anterior ankle edema with erythema, non-pitting, increased temperature to palpation, skin is weeping. Cardiovascular #2: 2+ dorsalis pedis (R) Gastrointestinal: normal bowel sounds, non tender, soft, no guarding, no rebound Rectal: deferred Musculoskeletal: back normal, gait/station normal, normal range of motion, other - BTKA of the left leg Neurologic: alert, oriented x3, responsive, motor strength/tone normal, sensory intact, speech normal Psychiatric: mood/affect normal Skin: normal color, warm/dry, well hydrated, other - right foot and anterior ankle edema with erythema, non-pitting, increased temperature to palpation, skin is weeping. and mild superficial sloughing of the skin, no lesions, blisters, or erythema noted elsewhere on examination (Brianna Forbes) Medical Decision Making PA Attestation Dr. Cunningham is my supervising Physician whom patient management has been discussed with. (Brianna Forbes) Medicare Attestation I, Ariadne Cunningham MD hereby attest that this medical record entry accurately reflects signatures/notations that I made in my capacity as MD when I treated/ diagnosed the above listed Medicare beneficiary. I attest that this information is true, accurate and complete to the best of my knowledge. I understand that any falsification, omission, or concealment of material fact may subject me to administrative, civil, or criminal liability. This patient warrants hospital admission for extreme of age and has a condition that cannot be treated as outpatient. (Ariadne Cunningham M.D.) Diagnostic Impression: Primary Impression: Cellulitis Qualified Codes: L03.115 - Cellulitis of right lower limb Additional Impression: Hyperglycemia ER Course 65 YO Male presents to the ED c/o 08/22 in severity localized pain, swelling, and erythema of Right leg, x 2 weeks. pt. has left leg BTK amputation. hx of DM , non-compliant with oral medications, pt. states he is homeless and does not have family to care for him. symptoms of the right lower extremity x 2 weeks. Denies abdominal pain, fevers, chills, CP, Palpitations, LOC, AMS, dizziness, Changes in Vision, Sensation, paresthesias, or a sudden severe headache. HPI and ROS is Limited due to pt. being a poor historian. Ddx considered but are not limited to cellulitis, Necrotizing fasciitis, fracture, d/L, gout, hyperglycemia just to name a few Vital signs: are WNL, pt. is afebrile H&PE are most consistent with Cellulitis of the right LE , inability to care for self, Chronic illness ORDERS: -AccuCheck: 364 -CBC: unremarkable -CMP: hyperglycemia 386 -Elevated lactic acid of 3.10 -Troponins: WNL -CK-MB: WNL -CK: WNL -UA: elevated glucose and protein in the urine consistent with hyperglycemia. Blood Cultures: Pending - CXR 1 view: No consolidation, effusion, pneumothorax or acute cardiopulmonary findings per soft read in ED by Dr. Cunningham - - EK BPM NSR - no acute ST changes, prolonged QT interval , interpreted in the ED by Dr. Cunningham, this interpretation was scribed by LEO Forbes ED INTERVENTIONS: -NS 1000cc Bolus -Vancomycin IV -Cefipme IV ---Dr. Cunningham endorsed the pt. to both Dr. Massey and Dr. Fay. DISPOSITION: at this time pt. will be admitted to Dr. Massey for Cellulitis and Hyperglycemia. Dr. Massey agreed to admit the pt. and to continue pt. care management. Labs Test 11/19/16 13:20 11/19/16 14:35 White Blood Count 10.1 K/UL (4.8-10.8) Red Blood Count 4.74 M/UL (4.70-6.10) Hemoglobin 13.2 G/DL (14.2-18.0) Hematocrit 41.7 % (42.0-52.0) Mean Corpuscular Volume 88 FL (80-99) Mean Corpuscular Hemoglobin 27.9 PG (27.0-31.0) Mean Corpuscular Hemoglobin Concent 31.7 G/DL (32.0-36.0) Red Cell Distribution Width 12.8 % (11.6-14.8) Platelet Count 189 K/UL (150-450) Mean Platelet Volume 10.1 FL (6.5-10.1) Neutrophils (%) (Auto) 64.3 % (45.0-75.0) Lymphocytes (%) (Auto) 26.7 % (20.0-45.0) Monocytes (%) (Auto) 6.0 % (1.0-10.0) Eosinophils (%) (Auto) 2.1 % (0.0-3.0) Basophils (%) (Auto) 0.8 % (0.0-2.0) Urine Color Pale yellow Urine Appearance Clear Urine pH 5 (4.5-8.0) Urine Specific Roxana 1.005 (1.005-1.035) Urine Protein 2+ (NEGATIVE) Urine Glucose (UA) 4+ (NEGATIVE) Urine Ketones Negative (NEGATIVE) Urine Occult Blood 2+ (NEGATIVE) Urine Nitrite Negative (NEGATIVE) Urine Bilirubin Negative (NEGATIVE) Urine Urobilinogen Normal MG/DL (0.0-1.0) Urine Leukocyte Esterase Negative (NEGATIVE) Urine RBC 2-4 /HPF (0 - 0) Urine WBC 0-2 /HPF (0 - 0) Urine Squamous Epithelial Cells Occasional /LPF Urine Bacteria Few /HPF (NONE) Urine Granular Casts 0-2 /LPF (NONE) Sodium Level 128 mEQ/L (135-145) Potassium Level 4.6 mEQ/L (3.4-4.9) Chloride Level 90 mEQ/L (98-107) Carbon Dioxide Level 25 mEQ/L (20-30) Anion Gap 13 (5-15) Blood Urea Nitrogen 12 mg/dL (7-23) Creatinine 0.9 mg/dL (0.7-1.2) Estimat Glomerular Filtration Rate > 60 mL/min (>60) Glucose Level 383 mg/dL (74-106) Calcium Level 8.9 mg/dL (8.6-10.2) Total Bilirubin 0.3 mg/dL (0.0-1.2) Aspartate Amino Transf (AST/SGOT) 11 U/L (5-40) Alanine Aminotransferase (ALT/SGPT) 7 U/L (3-41) Alkaline Phosphatase 141 U/L (40-129) Total Creatine Kinase 69 U/L (38-174) Creatine Kinase MB 3.3 ng/mL (< 6.7) Creatine Kinase MB Relative Index 4.7 Troponin I < 0.30 ng/mL (<=0.30) Total Protein 7.2 g/dL (6.6-8.7) Albumin 3.8 g/dL (3.5-5.2) Globulin 3.4 g/dL Albumin/Globulin Ratio 1.1 (1.0-2.7) Lactic Acid Level 3.10 mmol/L (0.66-2.22) (Brianna Forbes P.A.) EKG Diagnostic Results Rate: normal - 89 bpm Rhythm: NSR Other Impression prolonged QT interval. ASA given to the pt in ED: No PA Scribe Text - EK BPM NSR - no acute ST changes, prolonged QT interval, Interpreted by Dr. Marisa Rutledge , this interpretation was scribed by LEO Forbes (Brianna Forbes) Last Vital Signs Date Time Temp Pulse Resp B/P (MAP) Pulse Ox O2 Delivery O2 Flow Rate FiO2 11/19/16 12:12 98.1 84 20 123/69 99 Room Air (Brianna Forbes) Disposition: ADMITTED INPATIENT Condition: Serious Brianna Forbes Nov 19, 2016 12:36 Ariadne Cunningham M.D. Nov 20, 2016 19:03
[2016-11-19] MEDS ORDERED: Cefepime HCl 1 GM in NS 55 ML IV SCH (13:00)
[2016-11-19] MEDS ORDERED: Vancomycin 1 GM in NS 275 ML IVPB ONE (13:00)
[2016-11-19] MEDS ORDERED: Cefepime 1gm vial ONE (13:05)
[2016-11-19 13:30] VITALS: BP 117/75
[2016-11-19 13:51] LABS: APPEARANCE,URINE CLEAR; BASOPHILS % (AUTO) 0.8 % (0.0-2.0); EOSINOPHILS % (AUTO) 2.1 % (0.0-3.0); KETONES,URINE NEGATIVE (NEGATIVE); LEUKOCYTE ESTERASE ,URINE NEGATIVE (NEGATIVE); LYMPHOCYTES % (AUTO) 26.7 % (20.0-45.0); MEAN CORPUSCULAR HEMOGLOBIN 27.9 PG (27.0-31.0); MEAN CORPUSCULAR HGB CONC 31.7 G/DL (32.0-36.0); MEAN CORPUSCULAR VOLUME 88 FL (80-99); MEAN PLATELET VOLUME 10.1 FL (6.5-10.1); NEUTROPHILS % (AUTO) 64.3 % (45.0-75.0); NITRITE,URINE NEGATIVE (NEGATIVE); PH,URINE 5 (4.5-8.0); PLATELET COUNT 189 K/UL (150-450); PROTEIN,URINE 2+ (NEGATIVE); RED BLOOD COUNT 4.74 M/UL (4.70-6.10); RED CELL DISTRIBUTION WIDTH 12.8 % (11.6-14.8); UROBILINOGEN,URINE NORMAL MG/DL (0.0-1.0); WHITE BLOOD COUNT 10.1 K/UL (4.8-10.8)
[2016-11-19 14:07] LABS: BACTERIA,URINE FEW /HPF; GRANULAR CASTS,URINE 0-2 /LPF; SQUAMOUS EPITHELIAL CELL,UR OCCASIONAL /LPF (NONE/OCC); WBC,URINE 0-2 /HPF (0 - 0)
[2016-11-19 14:09] LABS: TROPONIN I < 0.30 ng/mL (<=0.30)
[2016-11-19 14:12] LABS: ALANINE AMINOTRANSFERASE 7 U/L (3-41); ALBUMIN/GLOBULIN RATIO 1.1 (1.0-2.7); ANION GAP 13 (5-15); ASPARTATE AMINO TRANSFERASE 11 U/L (5-40); CALCIUM 8.9 mg/dL (8.6-10.2); CARBON DIOXIDE 25 mEQ/L (20-30); CHLORIDE 90 mEQ/L (98-107); CREATININE 0.9 mg/dL (0.7-1.2); GLOMERULAR FILTRATION RATE > 60 mL/min (>60); HEMOLYSIS 3; POTASSIUM 4.6 mEQ/L (3.4-4.9); SODIUM 128 mEQ/L (135-145); TOTAL PROTEIN 7.2 g/dL (6.6-8.7)
[2016-11-19 14:16] LABS: REFLEX LACTIC ACID YES OR NO YES
[2016-11-19] MEDS ORDERED: Vancomycin 1gm inj IVPB ONE (14:18)
[2016-11-19 14:23] LABS: CKMB 3.3 ng/mL (< 6.7)
--- NOTE | 2016-11-19 14:43 | Diagnostic Imaging Report ---
Indication: Chest pain Technique: One view of the chest Comparison: 09/28/2011 Findings: Lungs and pleural spaces are clear. Heart size is normal . No significant change Impression: No acute process
[2016-11-19] MEDS ORDERED: DuoNeb 0.5-3(2.5)mg/3ml neb HHN PRN (14:45)
[2016-11-19] MEDS ORDERED: Nitroglycerin Subl 0.4mg tab (Bottle Of 25) SL PRN (14:45)
[2016-11-19] MEDS ORDERED: Miralax 17gm pkt ORAL PRN (14:45)
[2016-11-19] MEDS ORDERED: Morphine Sulfate 2mg/ml Inj IVP PRN (14:45)
[2016-11-19 16:07] VITALS: BP 136/78
[2016-11-19 17:36] VITALS: BP 125/70
[2016-11-19 21:00] VITALS: BP 125/72
[2016-11-19] MEDS: Heparin 5000 units/ml inj SUBQ SCH (21:46)
--- NOTE | 2016-11-19 22:25 | Consultation ---
Consult Note Consult Note # [id number] FELISA BAIRES M.D. Nov 19, 2016 22:25
[2016-11-19] MEDS: Vancomycin 1 GM in D5W 275 ML IVPB SCH (22:52)
[2016-11-20] VITALS: BP 103/57
[2016-11-20] MEDS ORDERED: Cefepime HCl 2 GM in D5W 110 ML IV SCH (01:00)
--- NOTE | 2016-11-20 05:00 | Consultation ---
DATE OF CONSULTATION: INFECTIOUS DISEASE CONSULTATION CONSULTING PHYSICIAN: Yuriy Kelsey M.D. REFERRING PHYSICIAN: Kyra Massey M.D. REASON FOR CONSULTATION: Evaluation of the patient for right leg cellulitis. HISTORY OF PRESENT ILLNESS: The patient is a 65-year-old male with multiple medical problems, who has been admitted to this medical center due to swelling and erythema of the right leg for one week. The patient has been admitted with the impression of right leg cellulitis. Infectious Disease consultation has been requested for further evaluation of the patient and antibiotic management. PAST MEDICAL HISTORY: 1. Diabetes. 2. History of hypertension. 3. History of hyperlipidemia. 4. History of alcohol abuse. 5. History of left BKA. 6. Anemia. MEDICATIONS: IV vancomycin and cefepime. ALLERGIES: No known drug allergies. SOCIAL HISTORY: As mentioned above. FAMILY HISTORY: Noncontributory. REVIEW OF SYSTEMS: A 10-point review was done and except what is mentioned has been negative.HEENT: No recent change in vision or hearing. Pulmonary: No cough or shortness of breath. Cardiovascular: No chest pain or palpitations. Gastrointestinal/Abdomen: No nausea and vomiting. Genitourinary: No dysuria. Extremities: As mentioned above. PHYSICAL EXAMINATION: VITAL SIGNS: Temperature 98.2 degrees, blood pressure 125/72, pulse , and respiratory rate 18. HEENT: No pale conjunctivae. No icterus. NECK: No lymphadenopathy. CHEST: Clear. HEART: S1 and S2. ABDOMEN: Soft. EXTREMITIES: Left BKA, right lower extremity cellulitis, over the flores. NEUROLOGIC: Awake and alert. LABORATORY DATA: White blood cells 10, hemoglobin 13, and platelets 189,000. UA unremarkable. BUN 12 and creatinine 0.9. ALT, AST, and alkaline phosphatase are unremarkable. Blood culture pending. ASSESSMENT: The patient is a 65-year-old male with multiple medical problems, who has been admitted to this medical center with right lower extremity cellulitis, rule out bacteremia. PLAN: 1. We will put the patient on IV vancomycin, hold cefepime. 2. Monitor CBC. 3. Monitor BMP. 4. Monitor blood culture. 5. Based on the patient's clinical course and labs, we will do further recommendations. Thank you, Dr. Massey,for allowing me to participate in the care of this patient. I will follow the patient with you during this hospitalization. Yuriy Kelsey M.D. DR: Howard JOB#: [id number] CC:
[2016-11-20 07:05] LABS: BASOPHILS % (AUTO) 0.9 % (0.0-2.0); EOSINOPHILS % (AUTO) 2.2 % (0.0-3.0); LYMPHOCYTES % (AUTO) 21.6 % (20.0-45.0); MEAN CORPUSCULAR HEMOGLOBIN 29.2 PG (27.0-31.0); MEAN CORPUSCULAR HGB CONC 33.1 G/DL (32.0-36.0); MEAN CORPUSCULAR VOLUME 88 FL (80-99); MEAN PLATELET VOLUME 10.8 FL (6.5-10.1); MONOCYTES % (AUTO) 7.7 % (1.0-10.0); NEUTROPHILS % (AUTO) 67.6 % (45.0-75.0); PLATELET COUNT 162 K/UL (150-450); RED BLOOD COUNT 4.36 M/UL (4.70-6.10); WHITE BLOOD COUNT 9.4 K/UL (4.8-10.8)
[2016-11-20 07:26] LABS: ALANINE AMINOTRANSFERASE 6 U/L (3-41); ANION GAP 9 (5-15); ASPARTATE AMINO TRANSFERASE 11 U/L (5-40); CALCIUM 8.5 mg/dL (8.6-10.2); CARBON DIOXIDE 29 mEQ/L (20-30); CHLORIDE 98 mEQ/L (98-107); CREATININE 0.8 mg/dL (0.7-1.2); GLOMERULAR FILTRATION RATE > 60 mL/min (>60); HEMOLYSIS 3; POTASSIUM 4.8 mEQ/L (3.4-4.9); SODIUM 136 mEQ/L (135-145); TOTAL PROTEIN 6.3 g/dL (6.6-8.7)
[2016-11-20 08:00] VITALS: BP 122/74
[2016-11-20] MEDS ORDERED: Pneumococcal Vaccine 25mcg/0.5ml IM ONE (09:00)
[2016-11-20] MEDS: Heparin 5000 units/ml inj SUBQ SCH ×2 (09:30→20:48)
[2016-11-20 12:00] VITALS: BP 140/80
[2016-11-20] MEDS: Vancomycin 1 GM in D5W 275 ML IVPB SCH ×2 (12:03→23:41)
--- NOTE | 2016-11-20 12:28 | Wound Care Consultation ---
Wound Assessment Wound Assessment : Wound Number: 1 Wound Present on Admission: Yes New Wound: No Status Change of Wound: No Wound Location Body Site Modif: left Wound Location Body Site: leg Wound Type: other - cellulitis with dry flaky skin Apple Test: Does not Apple Wound Thickness: Partial Thickness Wound Drainage Amount: None Wound Drainage Odor: None/Absent Tissue Surrounding Wound: Erythemic Wound General Appearance: Reddened Wound Comment #1 Right leg Cellulitis with dry flaky skin Recommendation -Local wound care per protocol -Keep clean and dry -Turn and reposition -Optimize nutrition -Offload right heel -Heel protector on right heel -Assess and f/u accordingly for any changes WES PALOMARES RN Nov 20, 2016 12:28
--- NOTE | 2016-11-20 12:36 | History and Physical ---
History of Present Illness General Date patient seen: Nov 20, 2016 Time patient seen: 11:45 Reason for Hospitalization: RLE edema and pain Present Illness HPI 65 y/old homeless male with PMH of DM, HTN, L BKA, ETOH abuse, hyperlipemia, anemia, was send for evaluation due to erythema, pain and swelling of RLE in ED afebrile, no leukocytosis elevated lactic acid, remained elevated while repeated in 3 hrs BP stable BS elevated Na-128 patient pancultured, started on empiric antibiotic given 1 L of NS bolus and was admitted fro further management Allergies: Coded Allergies: No Known Allergies (Unverified , 11/16/14) Medication History Scheduled Metformin Hcl* (Metformin Hcl*), 1,000 MG ORAL BID, (Reported) No Known Medications* (NKM - No Known Medications*), 0 ., (Reported) No Known Medications* (NKM - No Known Medications*), 0 ., (Reported) Patient History Healthcare decision maker Resuscitation status Full Code Advanced Directive on File Past Medical/Surgical History Past Medical/Surgical History: (1) Anemia (2) GERD (gastroesophageal reflux disease) (3) MENG (acute kidney injury) (4) Infestation, maggot (5) Diabetes (6) Osteomyelitis of ankle or foot, acute (7) ETOH abuse (8) Hyperlipidemia (9) HTN (hypertension) (10) S/P BKA (below knee amputation) Review of Systems Constitutional: Reports: no symptoms Eye: Reports: no symptoms ENT: Reports: no symptoms Respiratory: Reports: no symptoms Cardiovascular: Reports: no symptoms, other - Hx of HTN hyperlipidemia Gastrointestinal: Reports: no symptoms Genitourinary: Reports: no symptoms Musculoskeletal: Reports: other - L BKA Skin: Reports: see HPI Psychiatric: Reports: no symptoms Endocrine: Reports: other - diabetes Hematologic/Lymphatic: Reports: no symptoms Physical Exam General Appearance: no apparent distress, alert - awake, responsive Lines, tubes and drains: peripheral HEENT: normocephalic, atraumatic, anicteric Neck: non-tender, supple Respiratory/Chest: lungs clear - with moderate air entry , no respiratory distress, no accessory muscle use Cardiovascular/Chest: normal rate, no JVD Abdomen: normal bowel sounds, non tender, soft Extremities: other - R BKA Skin Exam: other - RLE with erythema, edema, tenderness on palpation Neurologic: abnormal gait - w/chair bound , alert, responsive Last 24 Hour Vital Signs Date Time Temp Pulse Resp B/P (MAP) Pulse Ox O2 Delivery O2 Flow Rate FiO2 11/20/16 08:00 97.9 94 19 122/74 97 Room Air 11/20/16 00:00 98.0 93 20 103/57 95 Room Air 11/19/16 21:00 98.2 103 20 125/72 100 Room Air 11/19/16 17:36 98.5 88 21 125/70 97 Room Air 11/19/16 16:29 97 17 136/78 100 Room Air 11/19/16 16:07 98.1 97 20 136/78 100 Room Air 11/19/16 13:30 98.4 86 16 117/75 96 Room Air Intake and Output 11/20/16 11/21/16 19:00 07:00 Intake Total 360 ml Balance 360 ml Intake Oral 360 ml Laboratory Tests Test 11/19/16 13:20 11/19/16 14:35 11/20/16 05:45 White Blood Count 10.1 K/UL (4.8-10.8) 9.4 K/UL (4.8-10.8) Red Blood Count 4.74 M/UL (4.70-6.10) 4.36 M/UL (4.70-6.10) L Hemoglobin 13.2 G/DL (14.2-18.0) L 12.8 G/DL (14.2-18.0) L Hematocrit 41.7 % (42.0-52.0) L 38.5 % (42.0-52.0) L Mean Corpuscular Volume 88 FL (80-99) 88 FL (80-99) Mean Corpuscular Hemoglobin 27.9 PG (27.0-31.0) 29.2 PG (27.0-31.0) Mean Corpuscular Hemoglobin Concent 31.7 G/DL (32.0-36.0) L 33.1 G/DL (32.0-36.0) Red Cell Distribution Width 12.8 % (11.6-14.8) 13.0 % (11.6-14.8) Platelet Count 189 K/UL (150-450) 162 K/UL (150-450) Mean Platelet Volume 10.1 FL (6.5-10.1) 10.8 FL (6.5-10.1) H Neutrophils (%) (Auto) 64.3 % (45.0-75.0) 67.6 % (45.0-75.0) Lymphocytes (%) (Auto) 26.7 % (20.0-45.0) 21.6 % (20.0-45.0) Monocytes (%) (Auto) 6.0 % (1.0-10.0) 7.7 % (1.0-10.0) Eosinophils (%) (Auto) 2.1 % (0.0-3.0) 2.2 % (0.0-3.0) Basophils (%) (Auto) 0.8 % (0.0-2.0) 0.9 % (0.0-2.0) Urine Color Pale yellow Urine Appearance Clear Urine pH 5 (4.5-8.0) Urine Specific [place] 1.005 (1.005-1.035) Urine Protein 2+ (NEGATIVE) H Urine Glucose (UA) 4+ (NEGATIVE) H Urine Ketones Negative (NEGATIVE) Urine Occult Blood 2+ (NEGATIVE) H Urine Nitrite Negative (NEGATIVE) Urine Bilirubin Negative (NEGATIVE) Urine Urobilinogen Normal MG/DL (0.0-1.0) Urine Leukocyte Esterase Negative (NEGATIVE) Urine RBC 2-4 /HPF (0 - 0) H Urine WBC 0-2 /HPF (0 - 0) Urine Squamous Epithelial Cells Occasional /LPF Urine Bacteria Few /HPF (NONE) Urine Granular Casts 0-2 /LPF (NONE) H Sodium Level 128 mEQ/L (135-145) L 136 mEQ/L (135-145) Potassium Level 4.6 mEQ/L (3.4-4.9) 4.8 mEQ/L (3.4-4.9) Chloride Level 90 mEQ/L (98-107) L 98 mEQ/L (98-107) Carbon Dioxide Level 25 mEQ/L (20-30) 29 mEQ/L (20-30) Anion Gap 13 (5-15) 9 (5-15) Blood Urea Nitrogen 12 mg/dL (7-23) 11 mg/dL (7-23) Creatinine 0.9 mg/dL (0.7-1.2) 0.8 mg/dL (0.7-1.2) Estimat Glomerular Filtration Rate > 60 mL/min (>60) > 60 mL/min (>60) Glucose Level 383 mg/dL (74-106) H 284 mg/dL (74-106) #H Lactic Acid Level 3.00 mmol/L (0.66-2.22) H 3.10 mmol/L (0.66-2.22) H Calcium Level 8.9 mg/dL (8.6-10.2) 8.5 mg/dL (8.6-10.2) L Total Bilirubin 0.3 mg/dL (0.0-1.2) 0.5 mg/dL (0.0-1.2) Aspartate Amino Transf (AST/SGOT) 11 U/L (5-40) 11 U/L (5-40) Alanine Aminotransferase (ALT/SGPT) 7 U/L (3-41) 6 U/L (3-41) Alkaline Phosphatase 141 U/L (40-129) H 129 U/L (40-129) Total Creatine Kinase 69 U/L (38-174) Creatine Kinase MB 3.3 ng/mL (< 6.7) Creatine Kinase MB Relative Index 4.7 Troponin I < 0.30 ng/mL (<=0.30) Total Protein 7.2 g/dL (6.6-8.7) 6.3 g/dL (6.6-8.7) L Albumin 3.8 g/dL (3.5-5.2) 3.2 g/dL (3.5-5.2) L Globulin 3.4 g/dL 3.1 g/dL Albumin/Globulin Ratio 1.1 (1.0-2.7) 1.0 (1.0-2.7) Microbiology Date/Time Source Procedure Growth Status 11/19/16 13:30 Blood Blood Culture - Preliminary Resulted Height (Feet): 5 Height (Inches): 5.00 Weight (Pounds): 132 Medications Current Medications Medications (Trade) Dose Ordered Sig/Caden Route PRN Reason Start Time Stop Time Status Last Admin Dose Admin Acetaminophen (Tylenol) 650 mg Q4H PRN ORAL fever 11/19/16 14:45 12/19/16 14:44 Albuterol/ Ipratropium (DuoNeb 0.5-3(2.5)mg/3ml) 3 ml Q4H PRN HHN Shortness of Breath 11/19/16 14:45 11/24/16 14:44 Dextrose (Dextrose 50%) STAT PRN IV Hypoglycemia 11/19/16 14:45 12/19/16 14:44 Dextrose (Dextrose 50%) STAT PRN IV Hypoglycemia 11/20/16 12:30 12/20/16 12:29 UNV Heparin Sodium (Porcine) (Heparin 5000 units/ml) 5,000 units EVERY 12 HOURS SUBQ 11/19/16 21:00 12/19/16 20:59 11/20/16 09:30 Insulin Aspart (NovoLOG) BEFORE MEALS AND HS SUBQ 11/20/16 16:30 12/20/16 16:29 UNV Morphine Sulfate (Morphine Sulfate) 2 mg Q4H PRN IVP Moderate Pain (Pain Scale 4-6) 11/19/16 14:45 11/26/16 14:44 Nitroglycerin (Ntg) 0.4 mg Every 5 Minutes PRN SL Prn Chest Pain 11/19/16 14:45 12/19/16 14:44 Ondansetron HCl (Zofran) 4 mg Q6H PRN IVP Nausea & Vomiting 11/19/16 14:45 12/19/16 14:44 Polyethylene Glycol (Miralax) 17 gm DAILYPRN PRN ORAL Constipation 11/19/16 14:45 12/19/16 14:44 Temazepam (Restoril) 15 mg HSPRN PRN ORAL Insomnia 11/19/16 14:45 11/26/16 14:44 Vancomycin HCl (Vanco rx to dose) 1 ea DAILY PRN MISC Per rx protocol 11/19/16 16:15 12/19/16 16:14 Vancomycin HCl 1 gm/Dextrose 275 ml @ 183.3 mls/ hr Q12HR@1100,2300 IVPB 11/19/16 23:00 11/24/16 22:59 11/20/16 12:03 Assessment/Plan Assessment/Plan ASSESSMENT' possible sepsis bacteremia cellulitis RLE acute hypo Na -resolved Lactic acidosis Diabetes out of control HTN hyperlipidemia anemia ETOH abuse and dependency PVD with L BKA PLAN OF CARE MS floor empiric abx fup with cx ID consult blood cx preliminary + GPC in chains Venous Duplex no acute DVT RLE BS management with SS of insulin, check HgA1c and optimize further as needed BP management, check lipid panel add ASA acute hypo Na resolved after 1 L of NS, likely due to dehydration pain management bowel regimen add Thiamine, pet adoption counselor on abstinence from ETOH wound care nurse eval SS eval for placement case discussed and evaluated by supervising physician Yony (Zeeshan),Waleska WILDER Nov 20, 2016 12:36
[2016-11-20 16:00] VITALS: BP 157/96
[2016-11-20] MEDS: NovoLOG Insulin Flexpen SUBQ SCH ×2 (17:27→20:49)
[2016-11-20 20:00] VITALS: BP 144/78
[2016-11-20 21:00] VITALS: BP 144/78
[2016-11-21] VITALS: BP 119/71
[2016-11-21 04:00] VITALS: BP 138/78
[2016-11-21] MEDS: NovoLOG Insulin Flexpen SUBQ SCH ×4 (05:55→20:28)
[2016-11-21 07:44] LABS: BASOPHILS % (AUTO) 0.5 % (0.0-2.0); EOSINOPHILS % (AUTO) 0.6 % (0.0-3.0); LYMPHOCYTES % (AUTO) 14.8 % (20.0-45.0); MEAN CORPUSCULAR HEMOGLOBIN 30.6 PG (27.0-31.0); MEAN CORPUSCULAR HGB CONC 34.8 G/DL (32.0-36.0); MEAN CORPUSCULAR VOLUME 88 FL (80-99); MONOCYTES % (AUTO) 5.2 % (1.0-10.0); NEUTROPHILS % (AUTO) 78.9 % (45.0-75.0); PLATELET COUNT 142 K/UL (150-450); RED CELL DISTRIBUTION WIDTH 12.5 % (11.6-14.8); WHITE BLOOD COUNT 10.4 K/UL (4.8-10.8)
[2016-11-21 08:00] VITALS: BP 116/70
[2016-11-21 08:04] LABS: HEMOGLOBIN A1C 9.6 % (< 6.0)
[2016-11-21] MEDS: Heparin 5000 units/ml inj SUBQ SCH ×2 (08:09→20:17)
[2016-11-21] MEDS: Aspirin EC 81mg tab ORAL SCH (08:09)
[2016-11-21] MEDS: Thiamine 100mg tab ORAL SCH (08:09)
[2016-11-21 08:43] LABS: ANION GAP 13 (5-15); CALCIUM 8.8 mg/dL (8.6-10.2); CARBON DIOXIDE 28 mEQ/L (20-30); CHLORIDE 91 mEQ/L (98-107); CREATININE 0.9 mg/dL (0.7-1.2); GLOMERULAR FILTRATION RATE > 60 mL/min (>60); HEMOLYSIS 0; POTASSIUM 3.8 mEQ/L (3.4-4.9); SODIUM 132 mEQ/L (135-145)
[2016-11-21 08:59] LABS: CHOLESTEROL/HDL RATIO 5.3 (3.3-4.4)
--- NOTE | 2016-11-21 10:52 | Infectious Diseases Prog Note ---
Assessment/Plan Assessment/Plan ASSESSMENT: The patient is a 65-year-old male with right lower extremity cellulitis, ? bacteremia.: Blood Cx : Strp Diabetes. History of hypertension. History of hyperlipidemia. History of alcohol abuse. History of left BKA. Anemia. PLAN: cont patient on IV vancomycin d# 12-26 Monitor CBC Monitor BMP. Monitor blood culture. Subjective Allergies: Coded Allergies: No Known Allergies (Unverified , 11/16/14) Subjective comfortable Objective Vital Signs Last 24 Hour Vital Signs Date Time Temp Pulse Resp B/P (MAP) Pulse Ox O2 Delivery O2 Flow Rate FiO2 11/21/16 08:00 98.2 96 20 116/70 96 Room Air 11/21/16 04:00 98.8 95 20 138/78 96 Room Air 11/21/16 00:00 98.6 98 21 119/71 97 Room Air 11/20/16 21:00 99.3 97 21 144/78 97 Room Air 11/20/16 20:00 99.3 97 21 144/78 97 Room Air 11/20/16 16:00 98.8 98 20 157/96 98 Room Air 11/20/16 12:00 97.7 87 19 140/80 97 Room Air Height (Feet): 5 Height (Inches): 5.00 Weight (Pounds): 132 HEENT: anicteric Respiratory/Chest: normal breath sounds Cardiovascular: regular rhythm Abdomen: soft, non tender Microbiology Date/Time Source Procedure Growth Status 11/19/16 13:35 Blood Blood Culture - Preliminary NO GROWTH AFTER 24 HOURS Resulted 11/19/16 13:30 Blood Blood Culture - Preliminary Strep Species, Alpha Hemolytic Resulted 11/19/16 16:00 Nasal Nares MRSA Culture - Final NO METHICILLIN RESISTANT STAPH AUREUS... Complete 11/19/16 16:00 Rectum VRE Culture - Final NO VANCOMYCIN RESISTANT ENTEROCOCCUS ... Complete Laboratory Tests Test 11/20/16 22:10 11/21/16 05:10 Vancomycin Level Trough 13.7 ug/mL (5.0-12.0) H White Blood Count 10.4 K/UL (4.8-10.8) Red Blood Count 4.40 M/UL (4.70-6.10) L Hemoglobin 13.5 G/DL (14.2-18.0) L Hematocrit 38.7 % (42.0-52.0) L Mean Corpuscular Volume 88 FL (80-99) Mean Corpuscular Hemoglobin 30.6 PG (27.0-31.0) Mean Corpuscular Hemoglobin Concent 34.8 G/DL (32.0-36.0) Red Cell Distribution Width 12.5 % (11.6-14.8) Platelet Count 142 K/UL (150-450) L Mean Platelet Volume 10.0 FL (6.5-10.1) Neutrophils (%) (Auto) 78.9 % (45.0-75.0) H Lymphocytes (%) (Auto) 14.8 % (20.0-45.0) L Monocytes (%) (Auto) 5.2 % (1.0-10.0) Eosinophils (%) (Auto) 0.6 % (0.0-3.0) Basophils (%) (Auto) 0.5 % (0.0-2.0) Sodium Level 132 mEQ/L (135-145) L Potassium Level 3.8 mEQ/L (3.4-4.9) Chloride Level 91 mEQ/L (98-107) L Carbon Dioxide Level 28 mEQ/L (20-30) Anion Gap 13 (5-15) Blood Urea Nitrogen 9 mg/dL (7-23) Creatinine 0.9 mg/dL (0.7-1.2) Estimat Glomerular Filtration Rate > 60 mL/min (>60) Glucose Level 257 mg/dL (74-106) H Hemoglobin A1c 9.6 % (< 6.0) H Calcium Level 8.8 mg/dL (8.6-10.2) Triglycerides Level 210 mg/dL (< 150) H Cholesterol Level 231 mg/dL (< 200) H LDL Cholesterol 145 mg/dL (60-99) H HDL Cholesterol 44 mg/dL (> 60) Cholesterol/HDL Ratio 5.3 (3.3-4.4) H Current Medications Medications (Trade) Dose Ordered Sig/Caden Route PRN Reason Start Time Stop Time Status Last Admin Dose Admin Acetaminophen (Tylenol) 650 mg Q4H PRN ORAL fever 11/19/16 14:45 12/19/16 14:44 Albuterol/ Ipratropium (DuoNeb 0.5-3(2.5)mg/3ml) 3 ml Q4H PRN HHN Shortness of Breath 11/19/16 14:45 11/24/16 14:44 Aspirin (Ecotrin) 81 mg DAILY ORAL 11/21/16 09:00 12/21/16 08:59 11/21/16 08:09 Dextrose (Dextrose 50%) STAT PRN IV Hypoglycemia 11/20/16 12:30 12/20/16 12:29 Heparin Sodium (Porcine) (Heparin 5000 units/ml) 5,000 units EVERY 12 HOURS SUBQ 11/19/16 21:00 12/19/16 20:59 11/20/16 20:48 Insulin Aspart (NovoLOG) BEFORE MEALS AND HS SUBQ 11/20/16 16:30 12/20/16 16:29 11/21/16 05:55 Morphine Sulfate (Morphine Sulfate) 2 mg Q4H PRN IVP Moderate Pain (Pain Scale 4-6) 11/19/16 14:45 11/26/16 14:44 Nitroglycerin (Ntg) 0.4 mg Every 5 Minutes PRN SL Prn Chest Pain 11/19/16 14:45 12/19/16 14:44 Ondansetron HCl (Zofran) 4 mg Q6H PRN IVP Nausea & Vomiting 11/19/16 14:45 12/19/16 14:44 Polyethylene Glycol (Miralax) 17 gm DAILYPRN PRN ORAL Constipation 11/19/16 14:45 12/19/16 14:44 Temazepam (Restoril) 15 mg HSPRN PRN ORAL Insomnia 11/19/16 14:45 11/26/16 14:44 Thiamine HCl (Vitamin B1) 100 mg DAILY ORAL 11/21/16 09:00 12/21/16 08:59 11/21/16 08:09 Vancomycin HCl (Vanco rx to dose) 1 ea DAILY PRN MISC Per rx protocol 11/19/16 16:15 12/19/16 16:14 Vancomycin HCl 1 gm/Dextrose 275 ml @ 183.3 mls/ hr Q12HR@1100,2300 IVPB 11/19/16 23:00 11/24/16 22:59 11/20/16 23:41 FELISA BAIRES M.D. Nov 21, 2016 10:52
[2016-11-21] MEDS: Vancomycin 1 GM in D5W 275 ML IVPB SCH ×2 (11:27→23:11)
[2016-11-21 12:00] VITALS: BP 127/75
--- NOTE | 2016-11-21 14:03 | Pulmonology Progress Note ---
Assessment/Plan Assessment/Plan ASSESSMENT' possible sepsis ?bacteremia(Strep alpha hemolytic) cellulitis RLE acute hypo Na -resolved Lactic acidosis Diabetes out of control HTN hyperlipidemia anemia ETOH abuse and dependency PVD with L BKA PLAN OF CARE MS floor abx fup with final blood cx cx ID follows blood cx preliminary + Strep alpha hemolytic 2/4 Venous Duplex no acute DVT RLE BS management with SS of insulin, HgA1c 9.6 not at goal, add Levemir and optimize further as needed BP management, lipid panel with elevated TC, TG and LDL, add statin cosmetic counselor on low fat low cholesterol diabetic diet continue SA acute hypo Na resolved after 1 L of NS, likely due to dehydration, but this am - 132 pain management bowel regimen addedThiamine, cosmetic counselor on abstinence from ETOH wound care nurse eval SS eval for placement case discussed and evaluated by supervising physician Subjective Allergies: Coded Allergies: No Known Allergies (Unverified , 11/16/14) Subjective denies chest pain, SOB blood cx 2/4 + Strep alpha hemolytic afebrile, no leukocytosis Objective Last 24 Hour Vital Signs Date Time Temp Pulse Resp B/P (MAP) Pulse Ox O2 Delivery O2 Flow Rate FiO2 11/21/16 12:00 98.1 92 20 127/75 96 Room Air 11/21/16 08:00 98.2 96 20 116/70 96 Room Air 11/21/16 08:00 98.2 96 20 116/70 96 Room Air 11/21/16 04:00 98.8 95 20 138/78 96 Room Air 11/21/16 00:00 98.6 98 21 119/71 97 Room Air 11/20/16 21:00 99.3 97 21 144/78 97 Room Air 11/20/16 20:00 99.3 97 21 144/78 97 Room Air 11/20/16 16:00 98.8 98 20 157/96 98 Room Air Intake and Output 11/21/16 11/22/16 19:00 07:00 Intake Total 275.0 ml Balance 275.0 ml IV Total 275.0 ml Objective General Appearance: no apparent distress, alert, awake, responsive Lines, tubes and drains: peripheral HEENT: normocephalic, atraumatic, anicteric Neck: non-tender, supple Respiratory/Chest: lungs clear with moderate air entry , no respiratory distress, no accessory muscle use Cardiovascular/Chest: normal rate, no JVD Abdomen: normal bowel sounds, non tender, soft Extremities: other - R BKA Skin Exam: other - RLE with erythema, edema, tenderness on palpation Neurologic: abnormal gait /w/chair bound , alert, responsive Microbiology Date/Time Source Procedure Growth Status 11/19/16 13:35 Blood Blood Culture - Preliminary NO GROWTH AFTER 24 HOURS Resulted 11/19/16 13:30 Blood Blood Culture - Preliminary Strep Species, Alpha Hemolytic Resulted 11/19/16 16:00 Nasal Nares MRSA Culture - Final NO METHICILLIN RESISTANT STAPH AUREUS... Complete 11/19/16 16:00 Rectum VRE Culture - Final NO VANCOMYCIN RESISTANT ENTEROCOCCUS ... Complete Laboratory Tests 11/20/16 22:10: Vancomycin Level Trough 13.7H 11/21/16 05:10: White Blood Count 10.4, Red Blood Count 4.40L, Hemoglobin 13.5L, Hematocrit 38.7L, Mean Corpuscular Volume 88, Mean Corpuscular Hemoglobin 30.6, Mean Corpuscular Hemoglobin Concent 34.8, Red Cell Distribution Width 12.5, Platelet Count 142L, Mean Platelet Volume 10.0, Neutrophils (%) (Auto) 78.9H, Lymphocytes (%) (Auto) 14.8L, Monocytes (%) (Auto) 5.2, Eosinophils (%) (Auto) 0.6, Basophils (%) (Auto) 0.5, Sodium Level 132L, Potassium Level 3.8, Chloride Level 91L, Carbon Dioxide Level 28, Anion Gap 13, Blood Urea Nitrogen 9, Creatinine 0.9, Estimat Glomerular Filtration Rate > 60, Glucose Level 257H, Hemoglobin A1c 9.6H, Calcium Level 8.8, Triglycerides Level 210H, Cholesterol Level 231H, LDL Cholesterol 145H, HDL Cholesterol 44, Cholesterol/HDL Ratio 5.3H Current Medications Medications (Trade) Dose Ordered Sig/Caden Route PRN Reason Start Time Stop Time Status Last Admin Dose Admin Acetaminophen (Tylenol) 650 mg Q4H PRN ORAL fever 11/19/16 14:45 12/19/16 14:44 Albuterol/ Ipratropium (DuoNeb 0.5-3(2.5)mg/3ml) 3 ml Q4H PRN HHN Shortness of Breath 11/19/16 14:45 11/24/16 14:44 Aspirin (Ecotrin) 81 mg DAILY ORAL 11/21/16 09:00 12/21/16 08:59 11/21/16 08:09 Dextrose (Dextrose 50%) STAT PRN IV Hypoglycemia 11/20/16 12:30 12/20/16 12:29 Heparin Sodium (Porcine) (Heparin 5000 units/ml) 5,000 units EVERY 12 HOURS SUBQ 11/19/16 21:00 12/19/16 20:59 11/20/16 20:48 Insulin Aspart (NovoLOG) BEFORE MEALS AND HS SUBQ 11/20/16 16:30 12/20/16 16:29 11/21/16 12:21 Morphine Sulfate (Morphine Sulfate) 2 mg Q4H PRN IVP Moderate Pain (Pain Scale 4-6) 11/19/16 14:45 11/26/16 14:44 Nitroglycerin (Ntg) 0.4 mg Every 5 Minutes PRN SL Prn Chest Pain 11/19/16 14:45 12/19/16 14:44 Ondansetron HCl (Zofran) 4 mg Q6H PRN IVP Nausea & Vomiting 11/19/16 14:45 12/19/16 14:44 Polyethylene Glycol (Miralax) 17 gm DAILYPRN PRN ORAL Constipation 11/19/16 14:45 12/19/16 14:44 Temazepam (Restoril) 15 mg HSPRN PRN ORAL Insomnia 11/19/16 14:45 11/26/16 14:44 Thiamine HCl (Vitamin B1) 100 mg DAILY ORAL 11/21/16 09:00 12/21/16 08:59 11/21/16 08:09 Vancomycin HCl (Vanco rx to dose) 1 ea DAILY PRN MISC Per rx protocol 11/19/16 16:15 12/19/16 16:14 Vancomycin HCl 1 gm/Dextrose 275 ml @ 183.3 mls/ hr Q12HR@1100,2300 IVPB 11/19/16 23:00 11/24/16 22:59 11/21/16 11:27 Yony (Waleska Londono NP Nov 21, 2016 14:03
[2016-11-21] MEDS ORDERED: Levemir Flexpen SUBQ SCH (15:00)
[2016-11-21 16:00] VITALS: BP 138/77
[2016-11-21 20:00] VITALS: BP 118/64
[2016-11-21] MEDS: Atorvastatin 20mg tab ORAL SCH (20:25)
[2016-11-22] VITALS: BP 123/70
[2016-11-22 04:00] VITALS: BP 111/62
[2016-11-22] MEDS: NovoLOG Insulin Flexpen SUBQ SCH ×4 (05:45→20:52)
[2016-11-22 07:32] LABS: BASOPHILS % (AUTO) 0.4 % (0.0-2.0); EOSINOPHILS % (AUTO) 0.8 % (0.0-3.0); LYMPHOCYTES % (AUTO) 19.1 % (20.0-45.0); MEAN CORPUSCULAR HEMOGLOBIN 28.7 PG (27.0-31.0); MEAN CORPUSCULAR HGB CONC 32.8 G/DL (32.0-36.0); MEAN CORPUSCULAR VOLUME 87 FL (80-99); MEAN PLATELET VOLUME 10.7 FL (6.5-10.1); MONOCYTES % (AUTO) 8.2 % (1.0-10.0); NEUTROPHILS % (AUTO) 71.5 % (45.0-75.0); PLATELET COUNT 142 K/UL (150-450); RED BLOOD COUNT 4.18 M/UL (4.70-6.10); RED CELL DISTRIBUTION WIDTH 12.5 % (11.6-14.8); WHITE BLOOD COUNT 11.3 K/UL (4.8-10.8)
[2016-11-22 07:41] LABS: ANION GAP 13 (5-15); CALCIUM 8.8 mg/dL (8.6-10.2); CARBON DIOXIDE 29 mEQ/L (20-30); CHLORIDE 92 mEQ/L (98-107); CREATININE 0.9 mg/dL (0.7-1.2); GLOMERULAR FILTRATION RATE > 60 mL/min (>60); HEMOLYSIS 1; SODIUM 134 mEQ/L (135-145)
[2016-11-22 08:00] VITALS: BP 101/62
[2016-11-22] MEDS: Aspirin EC 81mg tab ORAL SCH (08:04)
[2016-11-22] MEDS: Thiamine 100mg tab ORAL SCH (08:05)
[2016-11-22] MEDS: Heparin 5000 units/ml inj SUBQ SCH ×2 (08:05→20:42)
--- NOTE | 2016-11-22 09:59 | Infectious Diseases Prog Note ---
Assessment/Plan Assessment/Plan A; Bacteremia with Enterococcus R leg cellulitis DM Anemia Onychomycosis P; Continue Vancomycin, add Levaquin Wound culture obtained Subjective ROS Limited/Unobtainable: No Constitutional: Reports: no symptoms Respiratory: Reports: no symptoms Cardiovascular: Reports: no symptoms Gastrointestinal/Abdominal: Reports: no symptoms Musculoskeletal: Reports: pain, other - in right leg Allergies: Coded Allergies: No Known Allergies (Unverified , 11/16/14) Objective Vital Signs Last 24 Hour Vital Signs Date Time Temp Pulse Resp B/P (MAP) Pulse Ox O2 Delivery O2 Flow Rate FiO2 11/22/16 08:00 97.7 88 20 101/62 95 Room Air 11/22/16 06:57 91 16 Room Air 11/22/16 04:00 98.1 91 18 111/62 96 Room Air 11/22/16 00:00 97.7 87 20 123/70 98 Room Air 11/21/16 20:00 97.8 87 21 118/64 96 Room Air 11/21/16 16:00 98.6 90 20 138/77 97 Room Air 11/21/16 12:00 98.1 92 20 127/75 96 Room Air Height (Feet): 5 Height (Inches): 5.00 Weight (Pounds): 132 General Appearance: no acute distress HEENT: mucous membranes moist Respiratory/Chest: lungs clear Cardiovascular: normal rate Abdomen: soft, non tender Extremities: no edema, other - left BKA Skin: other - erythema , superficial collections in right leg, onychomycosis Microbiology Date/Time Source Procedure Growth Status 11/19/16 13:35 Blood Blood Culture - Preliminary NO GROWTH AFTER 48 HOURS Resulted 11/19/16 13:30 Blood Blood Culture - Preliminary Enterococcus Avium Enterococcus Gallinarum Resulted 11/19/16 16:00 Nasal Nares MRSA Culture - Final NO METHICILLIN RESISTANT STAPH AUREUS... Complete 11/19/16 16:00 Rectum VRE Culture - Final NO VANCOMYCIN RESISTANT ENTEROCOCCUS ... Complete Laboratory Tests Test 11/22/16 05:30 White Blood Count 11.3 K/UL (4.8-10.8) H Red Blood Count 4.18 M/UL (4.70-6.10) L Hemoglobin 12.0 G/DL (14.2-18.0) L Hematocrit 36.5 % (42.0-52.0) L Mean Corpuscular Volume 87 FL (80-99) Mean Corpuscular Hemoglobin 28.7 PG (27.0-31.0) Mean Corpuscular Hemoglobin Concent 32.8 G/DL (32.0-36.0) Red Cell Distribution Width 12.5 % (11.6-14.8) Platelet Count 142 K/UL (150-450) L Mean Platelet Volume 10.7 FL (6.5-10.1) H Neutrophils (%) (Auto) 71.5 % (45.0-75.0) Lymphocytes (%) (Auto) 19.1 % (20.0-45.0) L Monocytes (%) (Auto) 8.2 % (1.0-10.0) Eosinophils (%) (Auto) 0.8 % (0.0-3.0) Basophils (%) (Auto) 0.4 % (0.0-2.0) Sodium Level 134 mEQ/L (135-145) L Potassium Level 4.0 mEQ/L (3.4-4.9) Chloride Level 92 mEQ/L (98-107) L Carbon Dioxide Level 29 mEQ/L (20-30) Anion Gap 13 (5-15) Blood Urea Nitrogen 14 mg/dL (7-23) Creatinine 0.9 mg/dL (0.7-1.2) Estimat Glomerular Filtration Rate > 60 mL/min (>60) Glucose Level 229 mg/dL (74-106) H Calcium Level 8.8 mg/dL (8.6-10.2) Current Medications Medications (Trade) Dose Ordered Sig/Caden Route PRN Reason Start Time Stop Time Status Last Admin Dose Admin Acetaminophen (Tylenol) 650 mg Q4H PRN ORAL fever 11/19/16 14:45 12/19/16 14:44 Albuterol/ Ipratropium (DuoNeb 0.5-3(2.5)mg/3ml) 3 ml Q4H PRN HHN Shortness of Breath 11/19/16 14:45 11/24/16 14:44 Aspirin (Ecotrin) 81 mg DAILY ORAL 11/21/16 09:00 12/21/16 08:59 11/22/16 08:04 Atorvastatin Calcium (Lipitor) 20 mg BEDTIME ORAL 11/21/16 21:00 12/21/16 20:59 11/21/16 20:25 Dextrose (Dextrose 50%) STAT PRN IV Hypoglycemia 11/20/16 12:30 12/20/16 12:29 Heparin Sodium (Porcine) (Heparin 5000 units/ml) 5,000 units EVERY 12 HOURS SUBQ 11/19/16 21:00 12/19/16 20:59 11/20/16 20:48 Insulin Aspart (NovoLOG) BEFORE MEALS AND HS SUBQ 11/20/16 16:30 12/20/16 16:29 11/22/16 05:45 Insulin Detemir (Levemir) 12 units Q24H SUBQ 11/21/16 15:00 12/21/16 14:59 11/21/16 15:40 Morphine Sulfate (Morphine Sulfate) 2 mg Q4H PRN IVP Moderate Pain (Pain Scale 4-6) 11/19/16 14:45 11/26/16 14:44 Nitroglycerin (Ntg) 0.4 mg Every 5 Minutes PRN SL Prn Chest Pain 11/19/16 14:45 12/19/16 14:44 Ondansetron HCl (Zofran) 4 mg Q6H PRN IVP Nausea & Vomiting 11/19/16 14:45 12/19/16 14:44 Polyethylene Glycol (Miralax) 17 gm DAILYPRN PRN ORAL Constipation 11/19/16 14:45 12/19/16 14:44 Temazepam (Restoril) 15 mg HSPRN PRN ORAL Insomnia 11/19/16 14:45 11/26/16 14:44 Thiamine HCl (Vitamin B1) 100 mg DAILY ORAL 11/21/16 09:00 12/21/16 08:59 11/22/16 08:05 Vancomycin HCl (Vanco rx to dose) 1 ea DAILY PRN MISC Per rx protocol 11/19/16 16:15 12/19/16 16:14 Vancomycin HCl 1 gm/Dextrose 275 ml @ 183.3 mls/ hr Q12HR@1100,2300 IVPB 11/19/16 23:00 11/24/16 22:59 11/21/16 23:11 AUBREY ALEXIS Nov 22, 2016 09:59
--- NOTE | 2016-11-22 10:54 | Pulmonology Progress Note ---
Assessment/Plan Assessment/Plan ASSESSMENT' sepsis with bacteremia bacteremia with Enterococci cellulitis RLE acute hypo Na -resolved Lactic acidosis Diabetes out of control HTN hyperlipidemia anemia ETOH abuse and dependency PVD with L BKA PLAN OF CARE MS floor abx blood cx = Enterococci ID follows Venous Duplex no acute DVT RLE BS management with SS of insulin, HgA1c 9.6 not at goal, increase Levemir dose to bid BP management, lipid panel with elevated TC, TG and LDL, added statin vp & general counsel on low fat low cholesterol diabetic diet continue SA acute hypo Na resolved after 1 L of NS, likely due to dehydration, but this am - 132 pain management bowel regimen added Thiamine, vp & general counsel on abstinence from ETOH wound care nurse eval SS eval for placement case discussed and evaluated by supervising physician Subjective Allergies: Coded Allergies: No Known Allergies (Unverified , 11/16/14) Subjective denies chest pain, SOB blood cx 04/18 + Strep alpha hemolytic afebrile, with leukocytosis today BS still elevated Objective Last 24 Hour Vital Signs Date Time Temp Pulse Resp B/P (MAP) Pulse Ox O2 Delivery O2 Flow Rate FiO2 11/22/16 08:00 97.7 88 20 101/62 95 Room Air 11/22/16 06:57 91 16 Room Air 11/22/16 04:00 98.1 91 18 111/62 96 Room Air 11/22/16 00:00 97.7 87 20 123/70 98 Room Air 11/21/16 20:00 97.8 87 21 118/64 96 Room Air 11/21/16 16:00 98.6 90 20 138/77 97 Room Air 11/21/16 12:00 98.1 92 20 127/75 96 Room Air Objective General Appearance: no apparent distress, alert, awake, responsive Lines, tubes and drains: peripheral HEENT: normocephalic, atraumatic, anicteric Neck: non-tender, supple Respiratory/Chest: lungs clear with moderate air entry , no respiratory distress, no accessory muscle use Cardiovascular/Chest: normal rate, no JVD Abdomen: normal bowel sounds, non tender, soft Extremities: other - R BKA Skin Exam: other - RLE with erythema, edema, tenderness on palpation Neurologic: abnormal gait /w/chair bound , alert, responsive Microbiology Date/Time Source Procedure Growth Status 11/19/16 13:35 Blood Blood Culture - Preliminary NO GROWTH AFTER 48 HOURS Resulted 11/19/16 13:30 Blood Blood Culture - Preliminary Enterococcus Avium Enterococcus Gallinarum Resulted 11/19/16 16:00 Nasal Nares MRSA Culture - Final NO METHICILLIN RESISTANT STAPH AUREUS... Complete 11/19/16 16:00 Rectum VRE Culture - Final NO VANCOMYCIN RESISTANT ENTEROCOCCUS ... Complete Laboratory Tests 11/22/16 05:30: White Blood Count 11.3H, Red Blood Count 4.18L, Hemoglobin 12.0L, Hematocrit 36.5L, Mean Corpuscular Volume 87, Mean Corpuscular Hemoglobin 28.7, Mean Corpuscular Hemoglobin Concent 32.8, Red Cell Distribution Width 12.5, Platelet Count 142L, Mean Platelet Volume 10.7H, Neutrophils (%) (Auto) 71.5, Lymphocytes (%) (Auto) 19.1L, Monocytes (%) (Auto) 8.2, Eosinophils (%) (Auto) 0.8, Basophils (%) (Auto) 0.4, Sodium Level 134L, Potassium Level 4.0, Chloride Level 92L, Carbon Dioxide Level 29, Anion Gap 13, Blood Urea Nitrogen 14, Creatinine 0.9, Estimat Glomerular Filtration Rate > 60, Glucose Level 229H, Calcium Level 8.8 Current Medications Medications (Trade) Dose Ordered Sig/Caden Route PRN Reason Start Time Stop Time Status Last Admin Dose Admin Acetaminophen (Tylenol) 650 mg Q4H PRN ORAL fever 11/19/16 14:45 12/19/16 14:44 Albuterol/ Ipratropium (DuoNeb 0.5-3(2.5)mg/3ml) 3 ml Q4H PRN HHN Shortness of Breath 11/19/16 14:45 11/24/16 14:44 Aspirin (Ecotrin) 81 mg DAILY ORAL 11/21/16 09:00 12/21/16 08:59 11/22/16 08:04 Atorvastatin Calcium (Lipitor) 20 mg BEDTIME ORAL 11/21/16 21:00 12/21/16 20:59 11/21/16 20:25 Dextrose (Dextrose 50%) STAT PRN IV Hypoglycemia 11/20/16 12:30 12/20/16 12:29 Heparin Sodium (Porcine) (Heparin 5000 units/ml) 5,000 units EVERY 12 HOURS SUBQ 11/19/16 21:00 12/19/16 20:59 11/20/16 20:48 Insulin Aspart (NovoLOG) BEFORE MEALS AND HS SUBQ 11/20/16 16:30 12/20/16 16:29 11/22/16 05:45 Insulin Detemir (Levemir) 12 units Q24H SUBQ 11/21/16 15:00 12/21/16 14:59 11/21/16 15:40 Levofloxacin (Levaquin) 750 mg DAILY ORAL 11/22/16 11:00 11/29/16 10:59 Morphine Sulfate (Morphine Sulfate) 2 mg Q4H PRN IVP Moderate Pain (Pain Scale 4-6) 11/19/16 14:45 11/26/16 14:44 Nitroglycerin (Ntg) 0.4 mg Every 5 Minutes PRN SL Prn Chest Pain 11/19/16 14:45 12/19/16 14:44 Ondansetron HCl (Zofran) 4 mg Q6H PRN IVP Nausea & Vomiting 11/19/16 14:45 12/19/16 14:44 Polyethylene Glycol (Miralax) 17 gm DAILYPRN PRN ORAL Constipation 11/19/16 14:45 12/19/16 14:44 Temazepam (Restoril) 15 mg HSPRN PRN ORAL Insomnia 11/19/16 14:45 11/26/16 14:44 Thiamine HCl (Vitamin B1) 100 mg DAILY ORAL 11/21/16 09:00 12/21/16 08:59 11/22/16 08:05 Vancomycin HCl (Vanco rx to dose) 1 ea DAILY PRN MISC Per rx protocol 11/19/16 16:15 12/19/16 16:14 Vancomycin HCl 1 gm/Dextrose 275 ml @ 183.3 mls/ hr Q12HR@1100,2300 IVPB 11/19/16 23:00 11/24/16 22:59 11/21/16 23:11 Waleska Bhakta NP ([facility]) Nov 22, 2016 10:54
[2016-11-22] MEDS ORDERED: Levofloxacin 500mg tab ORAL SCH (11:00)
[2016-11-22] MEDS ORDERED: LEVOFLOXACIN ORAL SCH ×2 (11:00)
[2016-11-22] MEDS ORDERED: Levofloxacin 500mg tab ONE (11:32)
[2016-11-22] MEDS: Vancomycin 1 GM in D5W 275 ML IVPB SCH ×2 (11:34→22:56)
[2016-11-22 12:00] VITALS: BP 130/74
[2016-11-22 16:00] VITALS: BP 118/66
[2016-11-22] MEDS: Levemir Flexpen SUBQ SCH (17:17)
[2016-11-22 20:00] VITALS: BP 112/61
[2016-11-22] MEDS: Atorvastatin 20mg tab ORAL SCH (20:49)
[2016-11-23] VITALS: BP 110/59
[2016-11-23 04:00] VITALS: BP 129/64
[2016-11-23] MEDS: NovoLOG Insulin Flexpen SUBQ SCH ×4 (06:16→20:50)
[2016-11-23 07:30] LABS: BASOPHILS % (AUTO) 0.9 % (0.0-2.0); EOSINOPHILS % (AUTO) 2.3 % (0.0-3.0); LYMPHOCYTES % (AUTO) 24.6 % (20.0-45.0); MEAN CORPUSCULAR HEMOGLOBIN 29.9 PG (27.0-31.0); MEAN CORPUSCULAR VOLUME 88 FL (80-99); MEAN PLATELET VOLUME 10.5 FL (6.5-10.1); MONOCYTES % (AUTO) 9.9 % (1.0-10.0); NEUTROPHILS % (AUTO) 62.2 % (45.0-75.0); PLATELET COUNT 128 K/UL (150-450); RED BLOOD COUNT 3.92 M/UL (4.70-6.10); RED CELL DISTRIBUTION WIDTH 12.3 % (11.6-14.8); WHITE BLOOD COUNT 7.7 K/UL (4.8-10.8)
[2016-11-23 07:52] LABS: ANION GAP 10 (5-15); CALCIUM 8.7 mg/dL (8.6-10.2); CARBON DIOXIDE 29 mEQ/L (20-30); CHLORIDE 94 mEQ/L (98-107); CREATININE 0.9 mg/dL (0.7-1.2); GLOMERULAR FILTRATION RATE > 60 mL/min (>60); HEMOLYSIS 6; POTASSIUM 3.6 mEQ/L (3.4-4.9); SODIUM 133 mEQ/L (135-145)
[2016-11-23 08:15] VITALS: BP 95/57
[2016-11-23] MEDS ORDERED: Levofloxacin 500mg tab ONE (08:22)
[2016-11-23] MEDS: Heparin 5000 units/ml inj SUBQ SCH ×2 (09:00→20:41)
[2016-11-23] MEDS: Thiamine 100mg tab ORAL SCH (09:50)
[2016-11-23] MEDS: Levemir Flexpen SUBQ SCH ×2 (09:54→18:12)
[2016-11-23] MEDS: Aspirin EC 81mg tab ORAL SCH (10:03)
[2016-11-23] MEDS: Vancomycin 1 GM in D5W 275 ML IVPB SCH ×2 (11:11→22:46)
[2016-11-23 12:19] VITALS: BP 131/80
--- NOTE | 2016-11-23 14:45 | Pulmonology Progress Note ---
Assessment/Plan Problems: (1) Cellulitis (2) Failure to thrive (3) S/P BKA (below knee amputation) (4) HTN (hypertension) (5) Hyperlipidemia (6) Diabetes Assessment/Plan improvng social service consult symptomtiac treatment Subjective ROS Limited/Unobtainable: No Constitutional: Reports: no symptoms HEENT: Repors: no symptoms Allergies: Coded Allergies: No Known Allergies (Unverified , 11/16/14) Objective Last 24 Hour Vital Signs Date Time Temp Pulse Resp B/P (MAP) Pulse Ox O2 Delivery O2 Flow Rate FiO2 11/23/16 12:19 98.6 76 21 131/80 97 Room Air 11/23/16 08:15 97.7 76 21 95/57 96 Room Air 11/23/16 07:15 84 16 Room Air 11/23/16 04:00 99.0 80 20 129/64 98 Room Air 11/23/16 00:00 98.4 84 21 110/59 99 Room Air 11/22/16 20:00 98.6 78 21 112/61 97 Room Air 11/22/16 19:37 87 16 Room Air 11/22/16 16:00 98.1 88 20 118/66 98 Room Air Intake and Output 11/23/16 11/24/16 19:00 07:00 Intake Total 960 ml Output Total 400 ml Balance 560 ml Intake Oral 960 ml Output Urine Total 400 ml # Voids 1 General Appearance: WD/WN, no acute distress HEENT: normocephalic Respiratory/Chest: chest wall non-tender, lungs clear Cardiovascular: normal peripheral pulses, normal rate, no JVD Abdomen: normal bowel sounds, no organomegaly Genitourinary: normal external genitalia Microbiology Date/Time Source Procedure Growth Status 11/22/16 10:00 Skin Gram Stain - Final Resulted 11/22/16 10:00 Wound Culture - Preliminary Staphylococcus Aureus Resulted Laboratory Tests 11/23/16 06:45: White Blood Count 7.7, Red Blood Count 3.92L, Hemoglobin 11.7L, Hematocrit 34.5L , Mean Corpuscular Volume 88, Mean Corpuscular Hemoglobin 29.9, Mean Corpuscular Hemoglobin Concent 34.0, Red Cell Distribution Width 12.3, Platelet Count 128L, Mean Platelet Volume 10.5H, Neutrophils (%) (Auto) 62.2, Lymphocytes (%) (Auto) 24.6, Monocytes (%) (Auto) 9.9, Eosinophils (%) (Auto) 2.3, Basophils (%) (Auto) 0.9, Sodium Level 133L, Potassium Level 3.6, Chloride Level 94L, Carbon Dioxide Level 29, Anion Gap 10, Blood Urea Nitrogen 17, Creatinine 0.9, Estimat Glomerular Filtration Rate > 60, Glucose Level 254H, Calcium Level 8.7 Current Medications Medications (Trade) Dose Ordered Sig/Caden Route PRN Reason Start Time Stop Time Status Last Admin Dose Admin Acetaminophen (Tylenol) 650 mg Q4H PRN ORAL fever 11/19/16 14:45 12/19/16 14:44 Albuterol/ Ipratropium (DuoNeb 0.5-3(2.5)mg/3ml) 3 ml Q4H PRN HHN Shortness of Breath 11/19/16 14:45 11/24/16 14:44 Aspirin (Ecotrin) 81 mg DAILY ORAL 11/21/16 09:00 12/21/16 08:59 11/23/16 10:03 Atorvastatin Calcium (Lipitor) 20 mg BEDTIME ORAL 11/21/16 21:00 12/21/16 20:59 11/22/16 20:49 Dextrose (Dextrose 50%) STAT PRN IV Hypoglycemia 11/20/16 12:30 12/20/16 12:29 Heparin Sodium (Porcine) (Heparin 5000 units/ml) 5,000 units EVERY 12 HOURS SUBQ 11/19/16 21:00 12/19/16 20:59 11/20/16 20:48 Insulin Aspart (NovoLOG) BEFORE MEALS AND HS SUBQ 11/20/16 16:30 12/20/16 16:29 11/23/16 12:36 Insulin Detemir (Levemir) 10 units BID SUBQ 11/22/16 18:00 12/21/16 14:59 11/23/16 09:54 Levofloxacin (Levaquin) 750 mg DAILY ORAL 11/23/16 09:00 11/30/16 08:59 11/23/16 09:50 Morphine Sulfate (Morphine Sulfate) 2 mg Q4H PRN IVP Moderate Pain (Pain Scale 4-6) 11/19/16 14:45 11/26/16 14:44 Nitroglycerin (Ntg) 0.4 mg Every 5 Minutes PRN SL Prn Chest Pain 11/19/16 14:45 12/19/16 14:44 Ondansetron HCl (Zofran) 4 mg Q6H PRN IVP Nausea & Vomiting 11/19/16 14:45 12/19/16 14:44 Polyethylene Glycol (Miralax) 17 gm DAILYPRN PRN ORAL Constipation 11/19/16 14:45 12/19/16 14:44 Temazepam (Restoril) 15 mg HSPRN PRN ORAL Insomnia 11/19/16 14:45 11/26/16 14:44 Thiamine HCl (Vitamin B1) 100 mg DAILY ORAL 11/21/16 09:00 12/21/16 08:59 11/23/16 09:50 Vancomycin HCl (Vanco rx to dose) 1 ea DAILY PRN MISC Per rx protocol 11/19/16 16:15 12/19/16 16:14 Vancomycin HCl 1 gm/Dextrose 275 ml @ 183.3 mls/ hr Q12HR@1100,2300 IVPB 11/19/16 23:00 11/28/16 22:59 11/23/16 11:11 TYESHA MARION Nov 23, 2016 14:45
[2016-11-23 16:00] VITALS: BP 118/86
--- NOTE | 2016-11-23 16:43 | Infectious Diseases Prog Note ---
Assessment/Plan Assessment/Plan ASSESSMENT: The patient is a 65-year-old male with right lower extremity cellulitis, improving ? bacteremia.: Blood Cx : ? Contaminant ( ENTEROCOCCUS AVIUM ENTEROCOCCUS GALLINARUM ) Diabetes. History of hypertension. History of hyperlipidemia. History of alcohol abuse. History of left BKA. Anemia. PLAN: cont patient on IV vancomycin d# 5 / 10-14 and Levaquin d# 2 / 7 Monitor CBC Monitor BMP. Monitor blood culture.( Repeat ) 2D Echo ro SBE Subjective Allergies: Coded Allergies: No Known Allergies (Unverified , 11/16/14) Subjective comfortable Objective Vital Signs Last 24 Hour Vital Signs Date Time Temp Pulse Resp B/P (MAP) Pulse Ox O2 Delivery O2 Flow Rate FiO2 11/23/16 12:19 98.6 76 21 131/80 97 Room Air 11/23/16 08:15 97.7 76 21 95/57 96 Room Air 11/23/16 07:15 84 16 Room Air 11/23/16 04:00 99.0 80 20 129/64 98 Room Air 11/23/16 00:00 98.4 84 21 110/59 99 Room Air 11/22/16 20:00 98.6 78 21 112/61 97 Room Air 11/22/16 19:37 87 16 Room Air Height (Feet): 5 Height (Inches): 5.00 Weight (Pounds): 132 HEENT: atraumatic Respiratory/Chest: normal breath sounds Cardiovascular: normal rate Abdomen: no organomegaly Microbiology Date/Time Source Procedure Growth Status 11/22/16 10:00 Skin Gram Stain - Final Resulted 11/22/16 10:00 Wound Culture - Preliminary Staphylococcus Aureus Resulted Laboratory Tests Test 11/23/16 06:45 White Blood Count 7.7 K/UL (4.8-10.8) Red Blood Count 3.92 M/UL (4.70-6.10) L Hemoglobin 11.7 G/DL (14.2-18.0) L Hematocrit 34.5 % (42.0-52.0) L Mean Corpuscular Volume 88 FL (80-99) Mean Corpuscular Hemoglobin 29.9 PG (27.0-31.0) Mean Corpuscular Hemoglobin Concent 34.0 G/DL (32.0-36.0) Red Cell Distribution Width 12.3 % (11.6-14.8) Platelet Count 128 K/UL (150-450) L Mean Platelet Volume 10.5 FL (6.5-10.1) H Neutrophils (%) (Auto) 62.2 % (45.0-75.0) Lymphocytes (%) (Auto) 24.6 % (20.0-45.0) Monocytes (%) (Auto) 9.9 % (1.0-10.0) Eosinophils (%) (Auto) 2.3 % (0.0-3.0) Basophils (%) (Auto) 0.9 % (0.0-2.0) Sodium Level 133 mEQ/L (135-145) L Potassium Level 3.6 mEQ/L (3.4-4.9) Chloride Level 94 mEQ/L (98-107) L Carbon Dioxide Level 29 mEQ/L (20-30) Anion Gap 10 (5-15) Blood Urea Nitrogen 17 mg/dL (7-23) Creatinine 0.9 mg/dL (0.7-1.2) Estimat Glomerular Filtration Rate > 60 mL/min (>60) Glucose Level 254 mg/dL (74-106) H Calcium Level 8.7 mg/dL (8.6-10.2) Current Medications Medications (Trade) Dose Ordered Sig/Caden Route PRN Reason Start Time Stop Time Status Last Admin Dose Admin Acetaminophen (Tylenol) 650 mg Q4H PRN ORAL fever 11/19/16 14:45 12/19/16 14:44 Albuterol/ Ipratropium (DuoNeb 0.5-3(2.5)mg/3ml) 3 ml Q4H PRN HHN Shortness of Breath 11/19/16 14:45 11/24/16 14:44 Aspirin (Ecotrin) 81 mg DAILY ORAL 11/21/16 09:00 12/21/16 08:59 11/23/16 10:03 Atorvastatin Calcium (Lipitor) 20 mg BEDTIME ORAL 11/21/16 21:00 12/21/16 20:59 11/22/16 20:49 Dextrose (Dextrose 50%) STAT PRN IV Hypoglycemia 11/20/16 12:30 12/20/16 12:29 Heparin Sodium (Porcine) (Heparin 5000 units/ml) 5,000 units EVERY 12 HOURS SUBQ 11/19/16 21:00 12/19/16 20:59 11/20/16 20:48 Insulin Aspart (NovoLOG) BEFORE MEALS AND HS SUBQ 11/20/16 16:30 12/20/16 16:29 11/23/16 16:35 Insulin Detemir (Levemir) 10 units BID SUBQ 11/22/16 18:00 12/21/16 14:59 11/23/16 09:54 Levofloxacin (Levaquin) 750 mg DAILY ORAL 11/23/16 09:00 11/30/16 08:59 11/23/16 09:50 Morphine Sulfate (Morphine Sulfate) 2 mg Q4H PRN IVP Moderate Pain (Pain Scale 4-6) 11/19/16 14:45 11/26/16 14:44 Nitroglycerin (Ntg) 0.4 mg Every 5 Minutes PRN SL Prn Chest Pain 11/19/16 14:45 12/19/16 14:44 Ondansetron HCl (Zofran) 4 mg Q6H PRN IVP Nausea & Vomiting 11/19/16 14:45 12/19/16 14:44 Polyethylene Glycol (Miralax) 17 gm DAILYPRN PRN ORAL Constipation 11/19/16 14:45 12/19/16 14:44 Temazepam (Restoril) 15 mg HSPRN PRN ORAL Insomnia 11/19/16 14:45 11/26/16 14:44 Thiamine HCl (Vitamin B1) 100 mg DAILY ORAL 11/21/16 09:00 12/21/16 08:59 11/23/16 09:50 Vancomycin HCl (Vanco rx to dose) 1 ea DAILY PRN MISC Per rx protocol 11/19/16 16:15 12/19/16 16:14 Vancomycin HCl 1 gm/Dextrose 275 ml @ 183.3 mls/ hr Q12HR@1100,2300 IVPB 11/19/16 23:00 11/28/16 22:59 11/23/16 11:11 FELISA BAIRES M.D. Nov 23, 2016 16:43
--- NOTE | 2016-11-23 18:48 | Cardiology Report ---
APPROVED REPORT EKG Measurement Heart [id number] Normal sinus rhythm Left axis deviation Nonspecific ST abnormality Prolonged QT Abnormal ECG
[2016-11-23 20:00] VITALS: BP 116/69
[2016-11-23] MEDS: Atorvastatin 20mg tab ORAL SCH (20:48)
[2016-11-24] VITALS: BP 121/71
[2016-11-24 04:00] VITALS: BP 146/74
[2016-11-24] MEDS: NovoLOG Insulin Flexpen SUBQ SCH ×4 (06:22→21:03)
[2016-11-24 08:00] VITALS: BP 114/72
[2016-11-24] MEDS: Heparin 5000 units/ml inj SUBQ SCH ×2 (09:00→21:00)
[2016-11-24] MEDS: Aspirin EC 81mg tab ORAL SCH (09:24)
[2016-11-24] MEDS: Thiamine 100mg tab ORAL SCH (09:24)
[2016-11-24] MEDS: Levemir Flexpen SUBQ SCH ×2 (09:26→18:10)
--- NOTE | 2016-11-24 09:36 | Diagnostic Imaging Report ---
APPROVED REPORT CPT Code: 73320 Present Symptoms Lower Extremity Pain: Right Lower Extremity Edema: Left Comments: Right calf cellulitis, rubor. Left knee edema and calf amputated below the knee. Hx HTN. RIGHT LEG: Venous imaging reveals a patent deep venous system. There is no evidence of thrombus within the femoral, popliteal or tibial segments. The greater saphenous vein is also within normal limits. Doppler indicates normal spontaneous flow within these segments. LEFT LEG: Venous imaging reveals a patent deep venous system. Imaging reveals chronic thrombus in the mid to distal superficial femoral and the popliteal vein. There is no evidence of acute thrombus within the femoral, popliteal or proximal tibial segments. The greater saphenous vein is also within normal limits. Doppler indicates normal spontaneous flow within these segments. No evidence of acute DVT. Incidental finding: Lymph node measuring 2.7 cm x 0.8 cm x 1.8 cm in the area of the proximal superficial femoral vein (distal groin).
[2016-11-24] MEDS: Vancomycin 1 GM in D5W 275 ML IVPB SCH (10:57)
[2016-11-24 12:00] VITALS: BP 147/79
--- NOTE | 2016-11-24 15:59 | Pulmonology Progress Note ---
Assessment/Plan Problems: (1) Cellulitis (2) Failure to thrive (3) S/P BKA (below knee amputation) (4) HTN (hypertension) (5) Hyperlipidemia (6) Diabetes [facility] symptom[facility] treatment dc home with ABX as recommended by ID. Subjective ROS Limited/Unobtainable: No Constitutional: Reports: no symptoms HEENT: Repors: no symptoms Respiratory: Reports: no symptoms Allergies: Coded Allergies: No Known Allergies (Unverified , 11/16/14) Objective Last 24 Hour Vital Signs Date Time Temp Pulse Resp B/P (MAP) Pulse Ox O2 Delivery O2 Flow Rate FiO2 11/24/16 12:00 97.2 75 20 147/79 99 Room Air 11/24/16 08:00 98.2 86 18 114/72 95 Room Air 11/24/16 07:42 82 18 Room Air 11/24/16 04:00 97.9 87 19 146/74 99 Room Air 11/24/16 00:00 97.6 88 20 121/71 96 Room Air 11/23/16 20:29 87 18 Room Air 11/23/16 20:00 97.8 70 21 116/69 97 Room Air 11/23/16 16:00 97.4 77 20 118/86 Nasal Cannula Intake and Output 11/24/16 11/25/16 19:00 07:00 Intake Total 650 ml Output Total 600 ml Balance 50 ml Intake Oral 650 ml Output Urine Total 600 ml General Appearance: WD/WN HEENT: normocephalic, atraumatic Respiratory/Chest: chest wall non-tender, lungs clear, normal breath sounds Cardiovascular: normal peripheral pulses, normal rate Abdomen: normal bowel sounds, soft, non tender Genitourinary: normal external genitalia Extremities: no cyanosis Skin: no lesions 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, no motor/sensory deficits, oriented x 3 Lymphatic: no neck adenopathy Musculoskeletal: normal muscle bulk Microbiology Date/Time Source Procedure Growth Status 11/22/16 10:00 Skin Gram Stain - Final Resulted 11/22/16 10:00 Wound Culture - Preliminary Staphylococcus Aureus Resulted Current Medications Medications (Trade) Dose Ordered Sig/Caden Route PRN Reason Start Time Stop Time Status Last Admin Dose Admin Acetaminophen (Tylenol) 650 mg Q4H PRN ORAL fever 11/19/16 14:45 12/19/16 14:44 Aspirin (Ecotrin) 81 mg DAILY ORAL 11/21/16 09:00 12/21/16 08:59 11/24/16 09:24 Atorvastatin Calcium (Lipitor) 20 mg BEDTIME ORAL 11/21/16 21:00 12/21/16 20:59 11/23/16 20:48 Dextrose (Dextrose 50%) STAT PRN IV Hypoglycemia 11/20/16 12:30 12/20/16 12:29 Heparin Sodium (Porcine) (Heparin 5000 units/ml) 5,000 units EVERY 12 HOURS SUBQ 11/19/16 21:00 12/19/16 20:59 11/20/16 20:48 Insulin Aspart (NovoLOG) BEFORE MEALS AND HS SUBQ 11/20/16 16:30 12/20/16 16:29 11/24/16 11:37 Insulin Detemir (Levemir) 10 units BID SUBQ 11/22/16 18:00 12/21/16 14:59 11/24/16 09:26 Levofloxacin (Levaquin) 750 mg DAILY ORAL 11/23/16 09:00 11/30/16 08:59 11/24/16 09:24 Morphine Sulfate (Morphine Sulfate) 2 mg Q4H PRN IVP Moderate Pain (Pain Scale 4-6) 11/19/16 14:45 11/26/16 14:44 Nitroglycerin (Ntg) 0.4 mg Every 5 Minutes PRN SL Prn Chest Pain 11/19/16 14:45 12/19/16 14:44 Ondansetron HCl (Zofran) 4 mg Q6H PRN IVP Nausea & Vomiting 11/19/16 14:45 12/19/16 14:44 Polyethylene Glycol (Miralax) 17 gm DAILYPRN PRN ORAL Constipation 11/19/16 14:45 12/19/16 14:44 Temazepam (Restoril) 15 mg HSPRN PRN ORAL Insomnia 11/19/16 14:45 11/26/16 14:44 Thiamine HCl (Vitamin B1) 100 mg DAILY ORAL 11/21/16 09:00 12/21/16 08:59 11/24/16 09:24 Vancomycin HCl (Vanco rx to dose) 1 ea DAILY PRN MISC Per rx protocol 11/19/16 16:15 12/19/16 16:14 Vancomycin HCl 1 gm/Dextrose 275 ml @ 183.3 mls/ hr Q12HR@1100,2300 IVPB 11/19/16 23:00 11/28/16 22:59 11/24/16 10:57 TYESHA MARION Nov 24, 2016 15:59
[2016-11-24 16:00] VITALS: BP 122/75
--- NOTE | 2016-11-24 17:34 | Cardiology Report ---
APPROVED REPORT EXAM: Two-dimensional and M-mode echocardiogram with Doppler and color Doppler. INDICATION Endocarditis M-Mode DIMENSIONS IVSd0.8 (0.7-1.1cm)Left Atrium (MM)4.5 (1.6-4.0cm) LVDd4.7 (3.5-5.6cm)Aortic Root2.9 (2.0-3.7cm) PWd1.0 (0.7-1.1cm)Aortic Cusp Exc.1.5 (1.5-2.0cm) LVDs2.8 (2.5-4.0cm) PWs1.3 cm Technically difficult study due to poor acoustic windows. Study quality precludes accurate assessment of regional wall motion and valve morphology Normal left ventricular chamber size, systolic function and wall motion. Left ventricular ejection fraction estimated to be 55 %. No evidence of ventricular hypertrophy. Anterior Echo-free space, may be due to pericardial fat or effusion. Mild bi-atrial enlargement. Right ventricular chamber size is within normal limits. Mild focal aortic valve sclerosis with adequate cusp excursion. Mildly thickened mitral valve leaflets with normal excursion. Mild mitral annulus and aortic root calcification. Pulmonic valve not well visualized. Normal tricuspid valve structure. IVC is normal in size with physiologic collapse. A color flow and spectral Doppler study was performed and revealed: Mild aortic regurgitation. Trace mitral regurgitation. Mitral diastolic velocities suggest reduced left ventricular relaxation (Grade I). No tricuspid regurgitation. Tricuspid systolic velocities suggests peak right ventricular systolic pressure of 12 mmHg. No regurgitation present.
--- NOTE | 2016-11-24 18:32 | Infectious Diseases Prog Note ---
Assessment/Plan Assessment/Plan ASSESSMENT: The patient is a 65-year-old male with right lower extremity cellulitis, improving ? bacteremia.: Blood Cx : ? Contaminant ( ENTEROCOCCUS AVIUM ENTEROCOCCUS GALLINARUM ) 2D Echo: no Veg Diabetes. History of hypertension. History of hyperlipidemia. History of alcohol abuse. History of left BKA. Anemia. PLAN: cont patient on IV vancomycin d# 6 / 10-14 and Levaquin d# 3 / 7 , upon DC will cont pt on oral Augmentin 875 bid x 1 wk Monitor CBC Monitor BMP. Monitor blood culture.( Repeat ) Subjective Allergies: Coded Allergies: No Known Allergies (Unverified , 11/16/14) Subjective comfortable Objective Vital Signs Last 24 Hour Vital Signs Date Time Temp Pulse Resp B/P (MAP) Pulse Ox O2 Delivery O2 Flow Rate FiO2 11/24/16 16:00 98.2 68 17 122/75 98 Room Air 11/24/16 12:00 97.2 75 20 147/79 99 Room Air 11/24/16 08:00 98.2 86 18 114/72 95 Room Air 11/24/16 07:42 82 18 Room Air 11/24/16 04:00 97.9 87 19 146/74 99 Room Air 11/24/16 00:00 97.6 88 20 121/71 96 Room Air 11/23/16 20:29 87 18 Room Air 11/23/16 20:00 97.8 70 21 116/69 97 Room Air Height (Feet): 5 Height (Inches): 5.00 Weight (Pounds): 132 HEENT: anicteric Respiratory/Chest: no respiratory distress Cardiovascular: regular rhythm Abdomen: no organomegaly Microbiology Date/Time Source Procedure Growth Status 11/22/16 10:00 Skin Gram Stain - Final Resulted 11/22/16 10:00 Wound Culture - Preliminary Staphylococcus Aureus Resulted Current Medications Medications (Trade) Dose Ordered Sig/Caden Route PRN Reason Start Time Stop Time Status Last Admin Dose Admin Acetaminophen (Tylenol) 650 mg Q4H PRN ORAL fever 11/19/16 14:45 12/19/16 14:44 Aspirin (Ecotrin) 81 mg DAILY ORAL 11/21/16 09:00 12/21/16 08:59 11/24/16 09:24 Atorvastatin Calcium (Lipitor) 20 mg BEDTIME ORAL 11/21/16 21:00 12/21/16 20:59 11/23/16 20:48 Dextrose (Dextrose 50%) STAT PRN IV Hypoglycemia 11/20/16 12:30 12/20/16 12:29 Heparin Sodium (Porcine) (Heparin 5000 units/ml) 5,000 units EVERY 12 HOURS SUBQ 11/19/16 21:00 12/19/16 20:59 11/20/16 20:48 Insulin Aspart (NovoLOG) BEFORE MEALS AND HS SUBQ 11/20/16 16:30 12/20/16 16:29 11/24/16 16:34 Insulin Detemir (Levemir) 10 units BID SUBQ 11/22/16 18:00 12/21/16 14:59 11/24/16 18:10 Levofloxacin (Levaquin) 750 mg DAILY ORAL 11/23/16 09:00 11/30/16 08:59 11/24/16 09:24 Morphine Sulfate (Morphine Sulfate) 2 mg Q4H PRN IVP Moderate Pain (Pain Scale 4-6) 11/19/16 14:45 11/26/16 14:44 Nitroglycerin (Ntg) 0.4 mg Every 5 Minutes PRN SL Prn Chest Pain 11/19/16 14:45 12/19/16 14:44 Ondansetron HCl (Zofran) 4 mg Q6H PRN IVP Nausea & Vomiting 11/19/16 14:45 12/19/16 14:44 Polyethylene Glycol (Miralax) 17 gm DAILYPRN PRN ORAL Constipation 11/19/16 14:45 12/19/16 14:44 Temazepam (Restoril) 15 mg HSPRN PRN ORAL Insomnia 11/19/16 14:45 11/26/16 14:44 Thiamine HCl (Vitamin B1) 100 mg DAILY ORAL 11/21/16 09:00 12/21/16 08:59 11/24/16 09:24 Vancomycin HCl (Vanco rx to dose) 1 ea DAILY PRN MISC Per rx protocol 11/19/16 16:15 12/19/16 16:14 Vancomycin HCl 1 gm/Dextrose 275 ml @ 183.3 mls/ hr Q12HR@1100,2300 IVPB 11/19/16 23:00 11/28/16 22:59 11/24/16 10:57 FELISA BAIRES M.D. Nov 24, 2016 18:32
[2016-11-24 20:00] VITALS: BP 130/75
[2016-11-24] MEDS: Atorvastatin 20mg tab ORAL SCH (21:01)
[2016-11-25] VITALS: BP 153/82
[2016-11-25] MEDS: Vancomycin 1 GM in D5W 275 ML IVPB SCH ×2 (00:42→10:58)
[2016-11-25 04:00] VITALS: BP 128/69
[2016-11-25] MEDS: NovoLOG Insulin Flexpen SUBQ SCH ×3 (06:02→17:18)
[2016-11-25 08:00] VITALS: BP 107/61
[2016-11-25] MEDS: Thiamine 100mg tab ORAL SCH (09:13)
[2016-11-25] MEDS: Aspirin EC 81mg tab ORAL SCH (09:13)
[2016-11-25] MEDS: Levemir Flexpen SUBQ SCH (09:20)
[2016-11-25] MEDS: Heparin 5000 units/ml inj SUBQ SCH (09:21)
[2016-11-25 12:01] VITALS: BP 110/71
--- NOTE | 2016-11-25 15:36 | Pulmonology Progress Note ---
Assessment/Plan Problems: (1) Cellulitis (2) Failure to thrive (3) S/P BKA (below knee amputation) (4) HTN (hypertension) (5) Hyperlipidemia (6) Diabetes Assessment/Plan symptomtc treatment dc home with ABX as recommended by ID. Subjective ROS Limited/Unobtainable: No Constitutional: Reports: no symptoms HEENT: Repors: no symptoms Respiratory: Reports: no symptoms Allergies: Coded Allergies: No Known Allergies (Unverified , 11/16/14) Objective Last 24 Hour Vital Signs Date Time Temp Pulse Resp B/P (MAP) Pulse Ox O2 Delivery O2 Flow Rate FiO2 11/25/16 12:01 97.0 75 18 110/71 95 Room Air 11/25/16 08:04 96 Room Air 11/25/16 08:04 Room Air 21 11/25/16 08:00 97.5 75 18 107/61 97 Room Air 11/25/16 07:25 72 16 Room Air 11/25/16 04:00 97.7 79 12 128/69 98 Room Air 11/25/16 00:00 98.2 74 20 153/82 98 Room Air 11/24/16 20:00 98.2 70 18 130/75 98 Room Air 11/24/16 19:11 79 18 Room Air 11/24/16 16:00 98.2 68 17 122/75 98 Room Air Intake and Output 11/25/16 11/26/16 19:00 07:00 # Bowel Movements 1 General Appearance: WD/WN HEENT: atraumatic, anicteric Respiratory/Chest: chest wall non-tender, normal breath sounds Cardiovascular: normal peripheral pulses, regular rhythm Abdomen: normal bowel sounds, no organomegaly Extremities: no cyanosis Skin: no rash Microbiology Date/Time Source Procedure Growth Status 11/23/16 18:05 Blood Blood Culture - Preliminary NO GROWTH AFTER 24 HOURS Resulted 11/23/16 17:50 Blood Blood Culture - Preliminary NO GROWTH AFTER 24 HOURS Resulted Current Medications Medications (Trade) Dose Ordered Sig/Caden Route PRN Reason Start Time Stop Time Status Last Admin Dose Admin Acetaminophen (Tylenol) 650 mg Q4H PRN ORAL fever 11/19/16 14:45 12/19/16 14:44 Aspirin (Ecotrin) 81 mg DAILY ORAL 11/21/16 09:00 12/21/16 08:59 11/25/16 09:13 Atorvastatin Calcium (Lipitor) 20 mg BEDTIME ORAL 11/21/16 21:00 12/21/16 20:59 11/24/16 21:01 Dextrose (Dextrose 50%) STAT PRN IV Hypoglycemia 11/20/16 12:30 12/20/16 12:29 Heparin Sodium (Porcine) (Heparin 5000 units/ml) 5,000 units EVERY 12 HOURS SUBQ 11/19/16 21:00 12/19/16 20:59 11/25/16 09:21 Insulin Aspart (NovoLOG) BEFORE MEALS AND HS SUBQ 11/20/16 16:30 12/20/16 16:29 11/25/16 11:52 Insulin Detemir (Levemir) 10 units BID SUBQ 11/22/16 18:00 12/21/16 14:59 11/25/16 09:20 Levofloxacin (Levaquin) 750 mg DAILY ORAL 11/23/16 09:00 11/30/16 08:59 11/25/16 09:13 Morphine Sulfate (Morphine Sulfate) 2 mg Q4H PRN IVP Moderate Pain (Pain Scale 4-6) 11/19/16 14:45 11/26/16 14:44 Nitroglycerin (Ntg) 0.4 mg Every 5 Minutes PRN SL Prn Chest Pain 11/19/16 14:45 12/19/16 14:44 Ondansetron HCl (Zofran) 4 mg Q6H PRN IVP Nausea & Vomiting 11/19/16 14:45 12/19/16 14:44 Polyethylene Glycol (Miralax) 17 gm DAILYPRN PRN ORAL Constipation 11/19/16 14:45 12/19/16 14:44 Temazepam (Restoril) 15 mg HSPRN PRN ORAL Insomnia 11/19/16 14:45 11/26/16 14:44 Thiamine HCl (Vitamin B1) 100 mg DAILY ORAL 11/21/16 09:00 12/21/16 08:59 11/25/16 09:13 Vancomycin HCl (Vanco rx to dose) 1 ea DAILY PRN MISC Per rx protocol 11/19/16 16:15 12/19/16 16:14 Vancomycin HCl 1 gm/Dextrose 275 ml @ 183.3 mls/ hr Q12HR@1100,2300 IVPB 11/19/16 23:00 11/28/16 22:59 11/25/16 10:58 TYESHA MARION Nov 25, 2016 15:35
[2016-11-25] MEDS ORDERED: AUGMENTIN 875-1 EAC1 ORAL (15:41)
[2016-11-25 16:00] VITALS: BP 134/73
[2016-11-25] MEDS ORDERED: Tubing IV Secondary IV ONE (17:36)
[2016-11-25] MEDS ORDERED: NS 275ml ONE (17:36)
--- NOTE | 2016-11-25 18:21 | Infectious Diseases Prog Note ---
Assessment/Plan Assessment/Plan ASSESSMENT: The patient is a 65-year-old male with right lower extremity cellulitis, improving ? bacteremia.: Blood Cx : ? Contaminant ( ENTEROCOCCUS AVIUM ENTEROCOCCUS GALLINARUM ) 2D Echo: no Veg Diabetes. History of hypertension. History of hyperlipidemia. History of alcohol abuse. History of left BKA. Anemia. PLAN: cont patient on IV vancomycin d# 6 / 10-14 and Levaquin d# 3 / 7 , upon DC will cont pt on oral Augmentin 875 bid x 1 wk Monitor CBC Monitor BMP. Monitor blood culture.( Repeat ) Subjective Constitutional: Denies: no symptoms, fever, chills, fatigue, anorexia, drenching sweats, other Allergies: Coded Allergies: No Known Allergies (Unverified , 11/16/14) Subjective comfortable Objective Vital Signs Last 24 Hour Vital Signs Date Time Temp Pulse Resp B/P (MAP) Pulse Ox O2 Delivery O2 Flow Rate FiO2 11/25/16 16:00 97.0 73 18 134/73 97 Room Air 11/25/16 12:01 97.0 75 18 110/71 95 Room Air 11/25/16 08:04 96 Room Air 21 11/25/16 08:04 Room Air 21 11/25/16 08:00 97.5 75 18 107/61 97 Room Air 11/25/16 07:25 72 16 Room Air 11/25/16 04:00 97.7 79 12 128/69 98 Room Air 11/25/16 00:00 98.2 74 20 153/82 98 Room Air 11/24/16 20:00 98.2 70 18 130/75 98 Room Air 11/24/16 19:11 79 18 Room Air Height (Feet): 5 Height (Inches): 5.00 Weight (Pounds): 132 HEENT: mucous membranes moist Respiratory/Chest: normal breath sounds Cardiovascular: regularly irregular Abdomen: soft, non tender Microbiology Date/Time Source Procedure Growth Status 11/23/16 18:05 Blood Blood Culture - Preliminary NO GROWTH AFTER 24 HOURS Resulted 11/23/16 17:50 Blood Blood Culture - Preliminary NO GROWTH AFTER 24 HOURS Resulted FELISA BAIRES M.D. Nov 25, 2016 18:21
--- NOTE | 2016-11-26 15:43 | Discharge Summary ---
Discharge Summary Hospital Course Date of Admission Nov 19, 2016 at 13:47 Date of Discharge Nov 25, 2016 at 17:37 Admitting Diagnosis Cellulitis HPI [place] Lozano is a 65 year old male who was admitted on Nov 19, 2016 at 13:47 for Cellulitis Hospital Course [id number] Discharge Discharge Disposition Patient was discharged to Home (01) Discharge Diagnoses: Akanksha Rose NP Nov 26, 2016 15:43
--- NOTE | 2016-11-27 21:30 | Discharge Summary 2 SIG ---
DATE OF ADMISSION: 11/19/2016 DATE OF DISCHARGE: 11/25/2016 TILE HELPER: Yuriy Kelsey M.D. Brief Hospital Course: The patient is a 65-year-old homeless male with history of diabetes mellitus, hypertension, left BKA, ETOH abuse, hyperlipidemia, and anemia, who was sent for evaluation due to erythema and pain with swelling of the right lower extremity. On evaluation at ED, the patient was afebrile. There was no leukocytosis; however, lactic acid remained elevated. Sodium was 128. Troponin was negative. Chest x-ray done showed no consolidation, effusion, pneumothorax, or cardiopulmonary findings. EKG was in normal sinus rhythm with no acute ST changes with prolonged QT interval. He was pancultured and was started on IV antibiotics. He was admitted for cellulitis of the leg and for hyperglycemia. Glucose was 383. Hyponatremia resolved after IV hydration. Venous duplex on the leg was negative for DVT. Blood sugars were monitored and was given sliding scale of insulin. He was given aspirin, Lipitor, and heparin subcutaneous for DVT prophylaxis. He was given IV vancomycin. Blood culture with Enterococcus avium and gallinarum. Transthoracic echocardiogram showed EF of 55% with no vegetations. He was given six days of IV vancomycin and three days of Levaquin. Repeat blood cultures did not isolate any growth. He was eventually discharged home to continue p.o. Augmentin 875 mg b.i.d. for a week. FINAL DIAGNOSES: 1. Cellulitis of the right lower extremity. 2. Possible bacteremia. 3. Diabetes mellitus, out of control. 4. Hyponatremia, resolved. 5. Hypertension. 6. Hyperlipidemia. 7. Anemia. 8. Peripheral vascular disease with left below-knee amputation. 9. Ethanol abuse and dependency. Disposition: The patient was discharged home. He was seen by social and human services assistant and will be going home to a friend's home upon discharge. He was given medications filled by [facility] prior to discharge. DISCHARGE MEDICATIONS: Refer to medication list. ACTIVITY: As tolerated. Followup: The patient was [facility] discharge. Kyra Massey M.D. I have been assigned to dictate discharge summary on this account and I was not involved in the patient's management. Akanksha Rose N.P. DR: NEHEMIAS JOB#: [id number] CC: JAQUAN
== END 2016-11-25 17:37 | disposition home or self-care (01) | DRG 383 ==
LOC: EDBD 12:19 → EMR 13:30 → MERGE 13:47 → 4E 13:47 → EDBEDREQ 15:31 → 4E 11-20 10:02
DX: L03.115 Cellulitis of right lower limb (principal); E87.2 Acidosis; R78.81 Bacteremia; E11.65 Type 2 diabetes mellitus with hyperglycemia; E87.1 Hypo-osmolality and hyponatremia; B35.1 Tinea unguium; I10 Essential (primary) hypertension; E78.5 Hyperlipidemia, unspecified; D64.9 Anemia, unspecified; K21.9 Gastro-esophageal reflux disease without esophagitis; F10.20 Alcohol dependence, uncomplicated; E86.0 Dehydration; R62.7 Adult failure to thrive; Z59.0 Homelessness; Z89.512 Acquired absence of left leg below knee; Z91.14 Patient's other noncompliance with medication regimen
CPT/HCPCS: 36415; 71010; 80048; 80053; 80061; 80202; 81003; 82550; 82553; 82962; 83036; 83605; 84484; 85025; 87040; 87070; 87081; 87181; 87205; 90732; 93005; 93306; 93970; 94664; 94760; 99285; J1815; S5561

== ENCOUNTER 2016-12-07 20:27 | Inpatient (IN) | payer MEDICAID ==
[~2016-12-07] VITALS: Ht 162.6 cm; Wt 62.1 kg
[~2016-12-07 20:27] MED LIST changes: +AUGMENTIN 875-1 EAC1 ORAL
[2016-12-07] MEDS ORDERED: Ampicillin/Sulbactam Sod 3 GM in NS 110 ML IV SCH (21:15)
[2016-12-07] MEDS ORDERED: Unasyn 3gm Inj ONE (21:35)
--- NOTE | 2016-12-07 21:43 | Emergency Room Report ---
History of Present Illness General Chief Complaint: Lower Extremity Injury Source: EMS Present Illness HPI 66-year-old male presents ED complaining of right leg pain. Patient was found by EMS on street. Patient uses a wheelchair, status post left lower extremity amputation. Patient complaining of pain in his right leg for many months now. States he is a diabetic. Pain is a 5/10, sharp, nonradiating. Denies recent trauma. Denies fevers or chills. Denies chest pain shortness breath. No other aggravating relieving factors. Denies any other associated symptoms Allergies: Coded Allergies: No Known Allergies (Unverified , 12/07/16) Patient History Past Medical History: DM Past Surgical History: other - s/p amputation LLE Pertinent Family History: none Social History: Denies: smoking, alcohol use, drug use Immunizations: UTD Reviewed Nursing Documentation: PMH: Agreed, PSxH: Agreed Nursing Documentation-PM Past Medical History: No History, Except For Review of Systems All Other Systems: negative except mentioned in HPI Physical Exam Vital Signs Date Time Temp Pulse Resp B/P (MAP) Pulse Ox O2 Delivery O2 Flow Rate FiO2 12/07/16 20:29 98.1 95 14 140/76 100 Room Air Sp02 EP Interpretation: reviewed, normal General Appearance: no apparent distress, alert, GCS 15, non-toxic Head: normocephalic, atraumatic Eyes: bilateral eye normal inspection, bilateral eye PERRL ENT: hearing grossly normal, normal pharynx, no angioedema, normal voice Neck: full range of motion, supple/symm/no masses Respiratory: chest non-tender, lungs clear, normal breath sounds, speaking full sentences Cardiovascular #1: regular rate, rhythm, no edema Cardiovascular #2: 2+ carotid (R), 2+ carotid (L), 2+ radial (R), 2+ radial (L) , 2+ dorsalis pedis (R), 2+ dorsalis pedis (L) Gastrointestinal: normal bowel sounds, non tender, soft, non-distended, no guarding, no rebound Rectal: deferred Genitourinary: normal inspection, no CVA tenderness Musculoskeletal: back normal, gait/station normal, normal range of motion, other - s/p LLE amputation, tender - RLE Neurologic: alert, oriented x3, responsive, motor strength/tone normal, sensory intact, speech normal Psychiatric: judgement/insight normal, memory normal, mood/affect normal, no suicidal/homicidal ideation Reflexes: 3+ bicep (R), 3+ bicep (L), 3+ tricep (R), 3+ tricep (L), 3+ knee (R) , 3+ knee (L) Skin: other - induraiton/erythema RLE Lymphatic: no adenopathy Medical Decision Making Diagnostic Impression: Primary Impression: Cellulitis of right lower extremity Additional Impression: Sepsis Qualified Codes: A41.9 - Sepsis, unspecified organism ER Course Hospital Course 66-year-old male presents to ED with redness, pain to LLE Differential diagnoses include: Cellulitis, abscess, rash. Clinical course Patient placed on stretcher. After initial history and physical I ordered labs , blood Cx, UA, IVFs labs reviewed - noted leukocytosis, Hb/Hct stable, no electrolyte abnormalities. lactate > 3 antibiotics given. Case discussed with Dr Massey and he agreed to accept the patient to his service for further care and support Diagnosis - cellulitis of right lower extremity, sepsis Patient admitted to floor in serious condition Labs Test 12/07/16 21:30 12/07/16 23:15 White Blood Count 11.1 K/UL (4.8-10.8) Red Blood Count 3.73 M/UL (4.70-6.10) Hemoglobin 11.1 G/DL (14.2-18.0) Hematocrit 32.4 % (42.0-52.0) Mean Corpuscular Volume 87 FL (80-99) Mean Corpuscular Hemoglobin 29.8 PG (27.0-31.0) Mean Corpuscular Hemoglobin Concent 34.3 G/DL (32.0-36.0) Red Cell Distribution Width 12.6 % (11.6-14.8) Platelet Count 274 K/UL (150-450) Mean Platelet Volume 8.3 FL (6.5-10.1) Neutrophils (%) (Auto) 64.4 % (45.0-75.0) Lymphocytes (%) (Auto) 26.3 % (20.0-45.0) Monocytes (%) (Auto) 6.8 % (1.0-10.0) Eosinophils (%) (Auto) 1.4 % (0.0-3.0) Basophils (%) (Auto) 1.2 % (0.0-2.0) Urine Color Pale yellow Urine Appearance Clear Urine pH 5 (4.5-8.0) Urine Specific [place] 1.005 (1.005-1.035) Urine Protein 2+ (NEGATIVE) Urine Glucose (UA) 4+ (NEGATIVE) Urine Ketones Negative (NEGATIVE) Urine Occult Blood 2+ (NEGATIVE) Urine Nitrite Negative (NEGATIVE) Urine Bilirubin Negative (NEGATIVE) Urine Urobilinogen Normal MG/DL (0.0-1.0) Urine Leukocyte Esterase Negative (NEGATIVE) Urine RBC 2-4 /HPF (0 - 0) Urine WBC 0-2 /HPF (0 - 0) Urine Squamous Epithelial Cells None /LPF (NONE/OCC) Urine Bacteria Few /HPF (NONE) Sodium Level 134 mEQ/L (135-145) Potassium Level 4.0 mEQ/L (3.4-4.9) Chloride Level 94 mEQ/L (98-107) Carbon Dioxide Level 22 mEQ/L (20-30) Anion Gap 18 (5-15) Blood Urea Nitrogen 7 mg/dL (7-23) Creatinine 0.8 mg/dL (0.7-1.2) Estimat Glomerular Filtration Rate > 60 mL/min (>60) Glucose Level 354 mg/dL (74-106) Lactic Acid Level 3.50 mmol/L (0.66-2.22) 3.00 mmol/L (0.66-2.22) Calcium Level 8.4 mg/dL (8.6-10.2) Total Bilirubin < 0.2 mg/dL (0.0-1.2) Aspartate Amino Transf (AST/SGOT) 10 U/L (5-40) Alanine Aminotransferase (ALT/SGPT) 6 U/L (3-41) Alkaline Phosphatase 114 U/L (40-129) Total Creatine Kinase 97 U/L (38-174) Creatine Kinase MB 3.1 ng/mL (< 6.7) Creatine Kinase MB Relative Index 3.1 Troponin I < 0.30 ng/mL (<=0.30) Pro-B-Type Natriuretic Peptide 160 pg/mL (0-125) Total Protein 6.4 g/dL (6.6-8.7) Albumin 3.3 g/dL (3.5-5.2) Globulin 3.1 g/dL Albumin/Globulin Ratio 1.0 (1.0-2.7) Last Vital Signs Date Time Temp Pulse Resp B/P (MAP) Pulse Ox O2 Delivery O2 Flow Rate FiO2 12/07/16 20:29 98.1 95 14 140/76 100 Room Air Status: improved Disposition: ADMITTED INPATIENT Condition: Serious MARLEN MCKINLEY M.D. Dec 07, 2016 21:43
[2016-12-07 21:53] LABS: BASOPHILS % (AUTO) 1.2 % (0.0-2.0); EOSINOPHILS % (AUTO) 1.4 % (0.0-3.0); LYMPHOCYTES % (AUTO) 26.3 % (20.0-45.0); MEAN CORPUSCULAR HEMOGLOBIN 29.8 PG (27.0-31.0); MEAN CORPUSCULAR HGB CONC 34.3 G/DL (32.0-36.0); MEAN CORPUSCULAR VOLUME 87 FL (80-99); MEAN PLATELET VOLUME 8.3 FL (6.5-10.1); MONOCYTES % (AUTO) 6.8 % (1.0-10.0); NEUTROPHILS % (AUTO) 64.4 % (45.0-75.0); PLATELET COUNT 274 K/UL (150-450); RED BLOOD COUNT 3.73 M/UL (4.70-6.10); RED CELL DISTRIBUTION WIDTH 12.6 % (11.6-14.8); WHITE BLOOD COUNT 11.1 K/UL (4.8-10.8)
[2016-12-07 21:55] LABS: APPEARANCE,URINE CLEAR; KETONES,URINE NEGATIVE (NEGATIVE); LEUKOCYTE ESTERASE ,URINE NEGATIVE (NEGATIVE); NITRITE,URINE NEGATIVE (NEGATIVE); PH,URINE 5 (4.5-8.0); PROTEIN,URINE 2+ (NEGATIVE); UROBILINOGEN,URINE NORMAL MG/DL (0.0-1.0)
[2016-12-07 22:04] LABS: ALANINE AMINOTRANSFERASE 6 U/L (3-41); ANION GAP 18 (5-15); ASPARTATE AMINO TRANSFERASE 10 U/L (5-40); CALCIUM 8.4 mg/dL (8.6-10.2); CARBON DIOXIDE 22 mEQ/L (20-30); CHLORIDE 94 mEQ/L (98-107); CREATININE 0.8 mg/dL (0.7-1.2); GLOMERULAR FILTRATION RATE > 60 mL/min (>60); HEMOLYSIS 4; SODIUM 134 mEQ/L (135-145); TOTAL PROTEIN 6.4 g/dL (6.6-8.7); TROPONIN I < 0.30 ng/mL (<=0.30)
[2016-12-07 22:07] LABS: BACTERIA,URINE FEW /HPF; WBC,URINE 0-2 /HPF (0 - 0)
[2016-12-07 22:14] LABS: CKMB 3.1 ng/mL (< 6.7)
[2016-12-07 22:26] LABS: REFLEX LACTIC ACID YES OR NO YES
[2016-12-07] MEDS ORDERED: NKM (22:32)
[2016-12-07 22:40] VITALS: BP 137/80
[2016-12-07] MEDS ORDERED: Morphine Sulfate 2mg/ml Inj IVP PRN (23:45)
[2016-12-07] MEDS ORDERED: Nitroglycerin Subl 0.4mg tab SL PRN (23:45)
[2016-12-07] MEDS ORDERED: Miralax 17gm pkt ORAL PRN (23:45)
[2016-12-07] MEDS ORDERED: Albuterol/Ipratropium 3ml neb HHN PRN (23:45)
[2016-12-08] VITALS: BP 127/73
[2016-12-08] MEDS ORDERED: Cefepime 2gm ONE (01:30)
[2016-12-08] MEDS ORDERED: Vancomycin 1gm inj IVPB ONE (01:30)
[2016-12-08] MEDS: Cefepime HCl 2 GM in D5W 110 ML IV SCH ×2 (01:42→13:25)
[2016-12-08] MEDS: Vancomycin 1 GM in D5W 275 ML IVPB SCH ×2 (02:26→15:32)
[2016-12-08 04:29] VITALS: BP 107/56
[2016-12-08] MEDS: NovoLOG Insulin Flexpen SUBQ SCH ×4 (06:43→20:58)
[2016-12-08 06:54] LABS: BASOPHILS % (AUTO) 0.9 % (0.0-2.0); EOSINOPHILS % (AUTO) 0.8 % (0.0-3.0); LYMPHOCYTES % (AUTO) 20.6 % (20.0-45.0); MEAN CORPUSCULAR HEMOGLOBIN 28.6 PG (27.0-31.0); MEAN CORPUSCULAR HGB CONC 32.7 G/DL (32.0-36.0); MEAN CORPUSCULAR VOLUME 87 FL (80-99); MEAN PLATELET VOLUME 8.6 FL (6.5-10.1); MONOCYTES % (AUTO) 6.2 % (1.0-10.0); NEUTROPHILS % (AUTO) 71.6 % (45.0-75.0); PLATELET COUNT 284 K/UL (150-450); RED BLOOD COUNT 3.83 M/UL (4.70-6.10); RED CELL DISTRIBUTION WIDTH 12.4 % (11.6-14.8); WHITE BLOOD COUNT 10.5 K/UL (4.8-10.8)
[2016-12-08 07:03] LABS: ALANINE AMINOTRANSFERASE 5 U/L (3-41); ALBUMIN/GLOBULIN RATIO 0.9 (1.0-2.7); ANION GAP 15 (5-15); ASPARTATE AMINO TRANSFERASE 10 U/L (5-40); CARBON DIOXIDE 24 mEQ/L (20-30); CHLORIDE 97 mEQ/L (98-107); CREATININE 0.7 mg/dL (0.7-1.2); GLOMERULAR FILTRATION RATE > 60 mL/min (>60); HEMOLYSIS 2; MAGNESIUM 1.6 mg/dL (1.7-2.5); PHOSPHORUS 2.3 mg/dL (2.5-4.8); POTASSIUM 4.3 mEQ/L (3.4-4.9); SODIUM 136 mEQ/L (135-145)
[2016-12-08 07:06] LABS: PROTHROMBIN TIME 10.2 SEC (9.30-11.50)
[2016-12-08 08:15] VITALS: BP 98/51
[2016-12-08] MEDS: Heparin 5000 units/ml inj SUBQ SCH ×2 (08:31→20:59)
--- NOTE | 2016-12-08 11:30 | Diagnostic Imaging Report ---
Indication: Dyspnea Comparison: None A single view chest radiograph was obtained. Findings: Heart size is normal. Mild reticular densities are present at the lung bases likely atelectasis. A bones are osteopenic. Impression: Mild basilar atelectasis
[2016-12-08 12:15] VITALS: BP 141/75
[2016-12-08 16:00] VITALS: BP 144/73
--- NOTE | 2016-12-08 16:23 | Consultation ---
Consult Note Consult Note id dic # [id number] FELISA BAIRES M.D. Dec 08, 2016 16:23
[2016-12-08 20:00] VITALS: BP 123/59
--- NOTE | 2016-12-08 22:37 | History and Physical ---
History of Present Illness General Date patient seen: Dec 09, 2016 Reason for Hospitalization: Lower Extremity Injury Present Illness HPI 66-year-old male presents ED complaining of right leg pain. Patient was found by EMS on street. Patient uses a wheelchair, status post left lower extremity amputation. Patient complaining of pain in his right leg for many months now. States he is a diabetic. Pain is a 5/10, sharp, nonradiating. Denies recent trauma. Denies fevers or chills. Denies chest pain shortness breath. No other aggravating relieving factors. Denies any other associated symptoms Allergies: Coded Allergies: No Known Allergies (Unverified , 12/07/16) Medication History Scheduled No Known Medications* (NKM - No Known Medications*), 0 ., (Reported) Patient History Healthcare decision maker Resuscitation status Full Code Advanced Directive on File Past Medical/Surgical History Past Medical/Surgical History: (1) Cellulitis of right lower extremity Review of Systems All Other Systems: negative except mentioned in HPI Physical Exam General Appearance: cachetic Lines, tubes and drains: peripheral HEENT: normocephalic, atraumatic Respiratory/Chest: chest wall non-tender, lungs clear Breasts: no masses Cardiovascular/Chest: normal peripheral pulses Abdomen: normal bowel sounds, non tender Last 24 Hour Vital Signs Date Time Temp Pulse Resp B/P (MAP) Pulse Ox O2 Delivery O2 Flow Rate FiO2 12/08/16 22:06 96 18 Room Air 21 12/08/16 20:00 92 18 123/59 95 Room Air 12/08/16 16:00 99.9 72 20 144/73 96 Room Air 12/08/16 12:15 98.7 99 19 141/75 97 Room Air 12/08/16 08:15 98.0 106 22 98/51 97 Room Air 12/08/16 07:43 101 16 Room Air 21 12/08/16 04:29 98.1 114 22 107/56 96 Room Air 12/08/16 00:00 98.1 109 22 127/73 94 Room Air 12/07/16 23:53 98.1 87 16 137/80 100 Room Air 12/07/16 22:40 98.1 87 16 137/80 100 Room Air Intake and Output 12/08/16 12/09/16 19:00 07:00 Intake Total 440 ml Output Total 400 ml Balance 40 ml Intake Oral 440 ml Output Urine Total 400 ml Laboratory Tests Test 12/07/16 23:15 12/08/16 05:05 Lactic Acid Level 3.00 mmol/L (0.66-2.22) H White Blood Count 10.5 K/UL (4.8-10.8) Red Blood Count 3.83 M/UL (4.70-6.10) L Hemoglobin 10.9 G/DL (14.2-18.0) L Hematocrit 33.4 % (42.0-52.0) L Mean Corpuscular Volume 87 FL (80-99) Mean Corpuscular Hemoglobin 28.6 PG (27.0-31.0) Mean Corpuscular Hemoglobin Concent 32.7 G/DL (32.0-36.0) Red Cell Distribution Width 12.4 % (11.6-14.8) Platelet Count 284 K/UL (150-450) Mean Platelet Volume 8.6 FL (6.5-10.1) Neutrophils (%) (Auto) 71.6 % (45.0-75.0) Lymphocytes (%) (Auto) 20.6 % (20.0-45.0) Monocytes (%) (Auto) 6.2 % (1.0-10.0) Eosinophils (%) (Auto) 0.8 % (0.0-3.0) Basophils (%) (Auto) 0.9 % (0.0-2.0) Prothrombin Time 10.2 SEC (9.30-11.50) Prothromb Time International Ratio 1.0 (0.9-1.1) Activated Partial Thromboplast Time 31 SEC (23-33) Sodium Level 136 mEQ/L (135-145) Potassium Level 4.3 mEQ/L (3.4-4.9) Chloride Level 97 mEQ/L (98-107) L Carbon Dioxide Level 24 mEQ/L (20-30) Anion Gap 15 (5-15) Blood Urea Nitrogen 6 mg/dL (7-23) L Creatinine 0.7 mg/dL (0.7-1.2) Estimat Glomerular Filtration Rate > 60 mL/min (>60) Glucose Level 307 mg/dL (74-106) H Calcium Level 8.0 mg/dL (8.6-10.2) L Phosphorus Level 2.3 mg/dL (2.5-4.8) L Magnesium Level 1.6 mg/dL (1.7-2.5) L Total Bilirubin 0.2 mg/dL (0.0-1.2) Aspartate Amino Transf (AST/SGOT) 10 U/L (5-40) Alanine Aminotransferase (ALT/SGPT) 5 U/L (3-41) Alkaline Phosphatase 118 U/L (40-129) Total Protein 6.0 g/dL (6.6-8.7) L Albumin 2.9 g/dL (3.5-5.2) L Globulin 3.1 g/dL Albumin/Globulin Ratio 0.9 (1.0-2.7) L Height (Feet): 5 Height (Inches): 4.00 Weight (Pounds): 137 Medications Current Medications Medications (Trade) Dose Ordered Sig/Caden Route PRN Reason Start Time Stop Time Status Last Admin Dose Admin Acetaminophen (Tylenol) 650 mg Q4H PRN ORAL fever 12/07/16 23:45 01/06/17 23:44 Albuterol/ Ipratropium (DuoNeb 0.5-3(2.5)mg/3ml) 3 ml Q4H PRN HHN Shortness of Breath 12/07/16 23:45 12/12/16 23:44 Dextrose (Dextrose 50%) STAT PRN IV Hypoglycemia 12/07/16 23:45 01/06/17 23:44 Heparin Sodium (Porcine) (Heparin 5000 units/ml) 5,000 units EVERY 12 HOURS SUBQ 12/08/16 09:00 01/07/17 08:59 12/08/16 20:59 Insulin Aspart (NovoLOG) BEFORE MEALS AND HS SUBQ 12/08/16 06:30 01/07/17 06:29 12/08/16 20:58 Morphine Sulfate (Morphine Sulfate) 2 mg Q4H PRN IVP Moderate Pain (Pain Scale 4-6) 12/07/16 23:45 12/14/16 23:44 Nitroglycerin (Ntg) 0.4 mg Q5M PRN SL Prn Chest Pain 12/07/16 23:45 01/06/17 23:44 Ondansetron HCl (Zofran) 4 mg Q6H PRN IVP Nausea & Vomiting 12/07/16 23:45 01/06/17 23:44 Polyethylene Glycol (Miralax) 17 gm DAILYPRN PRN ORAL Constipation 12/07/16 23:45 01/06/17 23:44 Temazepam (Restoril) 15 mg HSPRN PRN ORAL Insomnia 12/07/16 23:45 12/14/16 23:44 Vancomycin HCl (Vanco rx to dose) 1 ea DAILY PRN MISC PER RX PROTOCOL 12/08/16 16:00 01/07/17 15:59 Vancomycin HCl 1 gm/Dextrose 275 ml @ 183.3 mls/ hr Q12H IVPB 12/08/16 03:00 12/13/16 02:59 12/08/16 15:32 Assessment/Plan Problem List: (1) Cellulitis of right lower extremity ICD Codes: L03.115 - Cellulitis of right lower limb SNOMED: 137925514 (2) Sepsis ICD Codes: A41.9 - Sepsis, unspecified organism SNOMED: 99773676 Qualifiers: Qualified Codes: A41.9 - Sepsis, unspecified organism Assessment/Plan wound care iv abx TYESHA MARION Dec 08, 2016 22:37
[2016-12-09] VITALS: BP 131/69
[2016-12-09] MEDS: Vancomycin 1 GM in D5W 275 ML IVPB SCH ×2 (02:48→14:53)
[2016-12-09 04:00] VITALS: BP 127/75
[2016-12-09] MEDS: NovoLOG Insulin Flexpen SUBQ SCH ×4 (05:48→20:31)
[2016-12-09 08:00] VITALS: BP 129/74
--- NOTE | 2016-12-09 08:46 | Consultation ---
DATE OF CONSULTATION: 12/08/2016 INFECTIOUS DISEASE CONSULT CONSULTING PHYSICIAN: Yuriy Kelsey M.D. REQUESTING PHYSICIAN: Kyra Massey M.D. Reason For Consultation: Evaluation of the patient for right lower extremity cellulitis. History Of Present Illness: The patient is a 66-year-old male who was admitted to this medical center due to right lower extremity pain and discoloration. An Infectious Disease consultation has been requested for further evaluation of the patient and antibiotic management. PAST MEDICAL HISTORY: 1. History of left BKA. 2. Diabetes. MEDICATIONS: IV vancomycin and cefepime. ALLERGIES: No known drug allergies. SOCIAL HISTORY: No history of drug abuse. FAMILY HISTORY: Noncontributory. PHYSICAL EXAMINATION: Vital Signs: Temperature 99 degrees, blood pressure 144/73, pulse 86, and respiratory rate 18. HEENT: No pale conjunctivae. No icterus. NECK: No lymphadenopathy. CHEST: Clear. HEART: S1 and S2. ABDOMEN: Soft. Extremities: Left BKA. Right lower extremity has desquamation and erythema as described above and mild cellulitis on the dorsum of the foot and lower leg. Laboratory Data: White blood cells 10, hemoglobin 11, and platelets 284,000. UA unremarkable. BUN 6 and creatinine 0.7. Liver function tests are unremarkable. Chest x-ray unremarkable. Assessment: The patient is a 66-year-old male with multiple medical problems as listed above, who has right lower extremity cellulitis. There is no open wound to suggest gram-negative involvement. PLAN: 1. We will continue the patient on IV vancomycin, day #03/21. 2. Hold cefepime. 3. Monitor CBC. 4. Monitor BMP. 5. Monitor blood culture. 6. Based on the patient's clinical course and labs, we will do further recommendation. Thank you, Dr. Massey, for allowing me to participate in the care of this patient. I will follow the patient with you during this hospitalization. Yuriy Kelsey M.D. DR: ROCAEL JOB#: [id number] CC:
[2016-12-09] MEDS: Heparin 5000 units/ml inj SUBQ SCH ×2 (09:02→20:29)
[2016-12-09 12:00] VITALS: BP 137/76
--- NOTE | 2016-12-09 13:11 | Wound Care Consultation ---
Wound Assessment Wound Assessment : Wound Number: 1 Wound Present on Admission: Yes New Wound: No Status Change of Wound: No Wound Location Body Site Modif: right, lower Wound Location Body Site: leg Wound Type: other - cellulitis Wound Drainage Description: Serosanguineous Wound Drainage Amount: Scant Wound Drainage Odor: None/Absent Tissue Surrounding Wound: dry flaky skin Wound General Appearance: Reddened, Draining Wound Comment #1 Right lower leg cellulitis Recommendation -Cleanse with saline, pat dry, apply Xeroform drg, cover with 4x4, wrap with Kerlix daily and PRN soiled/dislodged -Keep clean and dry -Turn and reposition -Offload right heel -Heel protector on right heel -Optimize nutrition -Assess and f/u accordingly for any changes WES PALOMARES RN Dec 09, 2016 13:10
--- NOTE | 2016-12-09 15:42 | Cardiology Report ---
APPROVED REPORT EXAM: Two-dimensional and M-mode echocardiogram with Doppler and color Doppler. INDICATION Tachycardia M-Mode DIMENSIONS IVSd0.8 (0.7-1.1cm)Left Atrium (MM)4.0 (1.6-4.0cm) LVDd4.7 (3.5-5.6cm)Aortic Root3.1 (2.0-3.7cm) PWd0.9 (0.7-1.1cm)Aortic Cusp Exc.1.9 (1.5-2.0cm) LVDs2.5 (2.5-4.0cm) PWs1.6 cm Normal left ventricular chamber size, systolic function and wall motion. Left ventricular ejection fraction estimated to be 60 %. No evidence of left ventricular hypertrophy. Anterior Echo-free space, may be due to pericardial fat or effusion. All other cardiac chamber sizes are within normal limits. Mild focal aortic valve sclerosis with adequate cusp excursion. Mildly thickened mitral valve leaflets with normal excursion. Mild mitral annulus and aortic root calcification. Pulmonic valve not well visualized. Normal tricuspid valve structure. IVC at normal size with physiological collapse. A color flow and spectral Doppler study was performed and revealed: No aortic insufficiency. No mitral regurgitation. Mitral diastolic velocities suggest reduced left ventricular relaxation c/w diastolic dysfunction (Grade I). No tricuspid regurgitation. Tricuspid systolic velocities suggests peak right ventricular systolic pressure of 13 mmHg. No pulmonic regurgitation present.
[2016-12-09 16:00] VITALS: BP 132/78
--- NOTE | 2016-12-09 18:36 | Pulmonology Progress Note ---
Assessment/Plan Problems: (1) Cellulitis of right lower extremity (2) Sepsis Assessment/Plan improving continue the same Subjective ROS Limited/Unobtainable: No Constitutional: Reports: no symptoms HEENT: Repors: no symptoms Allergies: Coded Allergies: No Known Allergies (Unverified , 12/07/16) Objective Last 24 Hour Vital Signs Date Time Temp Pulse Resp B/P (MAP) Pulse Ox O2 Delivery O2 Flow Rate FiO2 12/09/16 16:00 97.9 79 18 132/78 97 Room Air 12/09/16 12:00 98.2 77 20 137/76 Room Air 12/09/16 08:00 98.2 84 18 129/74 95 Room Air 12/09/16 04:00 98.7 75 20 127/75 96 Room Air 12/09/16 00:00 99.7 87 18 131/69 94 Room Air 12/08/16 22:06 96 18 Room Air 21 12/08/16 20:00 92 18 123/59 95 Room Air General Appearance: WD/WN HEENT: normocephalic, atraumatic Respiratory/Chest: chest wall non-tender, lungs clear Cardiovascular: normal peripheral pulses, normal rate Abdomen: normal bowel sounds, soft, non tender Genitourinary: normal external genitalia Skin: no ulcers Neurologic/Psychiatric: no motor/sensory deficits Microbiology Date/Time Source Procedure Growth Status 12/07/16 21:30 Blood Blood Culture - Preliminary NO GROWTH AFTER 24 HOURS Resulted 12/07/16 21:20 Blood Blood Culture - Preliminary NO GROWTH AFTER 24 HOURS Resulted 12/07/16 22:22 Rectum VRE Culture - Final Enterococcus Faecium - Vre Complete Laboratory Tests 12/09/16 05:30: Lactic Acid Level 1.40 12/09/16 13:50: Vancomycin Level Trough 13.2H Current Medications Medications (Trade) Dose Ordered Sig/Caden Route PRN Reason Start Time Stop Time Status Last Admin Dose Admin Acetaminophen (Tylenol) 650 mg Q4H PRN ORAL fever 12/07/16 23:45 01/06/17 23:44 Albuterol/ Ipratropium (DuoNeb 0.5-3(2.5)mg/3ml) 3 ml Q4H PRN HHN Shortness of Breath 12/07/16 23:45 12/12/16 23:44 Dextrose (Dextrose 50%) STAT PRN IV Hypoglycemia 12/07/16 23:45 01/06/17 23:44 Heparin Sodium (Porcine) (Heparin 5000 units/ml) 5,000 units EVERY 12 HOURS SUBQ 12/08/16 09:00 01/07/17 08:59 12/09/16 09:02 Insulin Aspart (NovoLOG) BEFORE MEALS AND HS SUBQ 12/08/16 06:30 01/07/17 06:29 12/09/16 16:33 Morphine Sulfate (Morphine Sulfate) 2 mg Q4H PRN IVP Moderate Pain (Pain Scale 4-6) 12/07/16 23:45 12/14/16 23:44 Nitroglycerin (Ntg) 0.4 mg Q5M PRN SL Prn Chest Pain 12/07/16 23:45 01/06/17 23:44 Ondansetron HCl (Zofran) 4 mg Q6H PRN IVP Nausea & Vomiting 12/07/16 23:45 01/06/17 23:44 Polyethylene Glycol (Miralax) 17 gm DAILYPRN PRN ORAL Constipation 12/07/16 23:45 01/06/17 23:44 Temazepam (Restoril) 15 mg HSPRN PRN ORAL Insomnia 12/07/16 23:45 12/14/16 23:44 Vancomycin HCl (Vanco rx to dose) 1 ea DAILY PRN MISC PER RX PROTOCOL 12/08/16 16:00 01/07/17 15:59 Vancomycin HCl 1 gm/Dextrose 275 ml @ 183.3 mls/ hr Q12H IVPB 12/08/16 03:00 12/13/16 02:59 12/09/16 14:53 TYESHA MARION Dec 09, 2016 18:36
[2016-12-09 20:00] VITALS: BP 125/71
--- NOTE | 2016-12-09 21:13 | Infectious Diseases Prog Note ---
Assessment/Plan Assessment/Plan Assessment: The patient is a 66-year-old male with right lower extremity cellulitis. History of left BKA. Diabetes. VRE Colonizer PLAN: cont the patient on IV vancomycin day # 2 . Monitor CBC. Monitor BMP. Monitor blood culture contact isolation Subjective Constitutional: Denies: no symptoms, fever, chills, fatigue, anorexia, drenching sweats, other Allergies: Coded Allergies: No Known Allergies (Unverified , 12/07/16) Objective Vital Signs Last 24 Hour Vital Signs Date Time Temp Pulse Resp B/P (MAP) Pulse Ox O2 Delivery O2 Flow Rate FiO2 12/09/16 20:59 96 18 Room Air 21 12/09/16 20:00 98.6 74 20 125/71 96 Room Air 12/09/16 16:00 97.9 79 18 132/78 97 Room Air 12/09/16 12:00 98.2 77 20 137/76 Room Air 12/09/16 08:00 98.2 84 18 129/74 95 Room Air 12/09/16 04:00 98.7 75 20 127/75 96 Room Air 12/09/16 00:00 99.7 87 18 131/69 94 Room Air 12/08/16 22:06 96 18 Room Air 21 Height (Feet): 5 Height (Inches): 4.00 Weight (Pounds): 137 HEENT: anicteric Respiratory/Chest: normal breath sounds Cardiovascular: normal rate Abdomen: no organomegaly Microbiology Date/Time Source Procedure Growth Status 12/07/16 21:30 Blood Blood Culture - Preliminary NO GROWTH AFTER 24 HOURS Resulted 12/07/16 21:20 Blood Blood Culture - Preliminary NO GROWTH AFTER 24 HOURS Resulted 12/07/16 22:22 Rectum VRE Culture - Final Enterococcus Faecium - Vre Complete Laboratory Tests Test 12/09/16 05:30 12/09/16 13:50 Lactic Acid Level 1.40 mmol/L (0.66-2.22) Vancomycin Level Trough 13.2 ug/mL (5.0-12.0) H Current Medications Medications (Trade) Dose Ordered Sig/Caden Route PRN Reason Start Time Stop Time Status Last Admin Dose Admin Acetaminophen (Tylenol) 650 mg Q4H PRN ORAL fever 12/07/16 23:45 01/06/17 23:44 Albuterol/ Ipratropium (DuoNeb 0.5-3(2.5)mg/3ml) 3 ml Q4H PRN HHN Shortness of Breath 12/07/16 23:45 12/12/16 23:44 Dextrose (Dextrose 50%) STAT PRN IV Hypoglycemia 12/07/16 23:45 01/06/17 23:44 Heparin Sodium (Porcine) (Heparin 5000 units/ml) 5,000 units EVERY 12 HOURS SUBQ 12/08/16 09:00 01/07/17 08:59 12/09/16 20:29 Insulin Aspart (NovoLOG) BEFORE MEALS AND HS SUBQ 12/08/16 06:30 01/07/17 06:29 12/09/16 20:31 Morphine Sulfate (Morphine Sulfate) 2 mg Q4H PRN IVP Moderate Pain (Pain Scale 4-6) 12/07/16 23:45 12/14/16 23:44 Nitroglycerin (Ntg) 0.4 mg Q5M PRN SL Prn Chest Pain 12/07/16 23:45 01/06/17 23:44 Ondansetron HCl (Zofran) 4 mg Q6H PRN IVP Nausea & Vomiting 12/07/16 23:45 01/06/17 23:44 Polyethylene Glycol (Miralax) 17 gm DAILYPRN PRN ORAL Constipation 12/07/16 23:45 01/06/17 23:44 Temazepam (Restoril) 15 mg HSPRN PRN ORAL Insomnia 12/07/16 23:45 12/14/16 23:44 Vancomycin HCl (Vanco rx to dose) 1 ea DAILY PRN MISC PER RX PROTOCOL 12/08/16 16:00 01/07/17 15:59 Vancomycin HCl 1 gm/Dextrose 275 ml @ 183.3 mls/ hr Q12H IVPB 12/08/16 03:00 12/13/16 02:59 12/09/16 14:53 FELISA BAIRES M.D. Dec 09, 2016 21:13
[2016-12-10] VITALS: BP 120/72
[2016-12-10] MEDS: Vancomycin 1 GM in D5W 275 ML IVPB SCH ×2 (02:49→16:00)
[2016-12-10 04:00] VITALS: BP 136/87
[2016-12-10] MEDS: NovoLOG Insulin Flexpen SUBQ SCH ×3 (06:18→17:12)
[2016-12-10 08:00] VITALS: BP 119/67
[2016-12-10] MEDS: Heparin 5000 units/ml inj SUBQ SCH (08:47)
[2016-12-10 12:00] VITALS: BP 135/77
[2016-12-10] MEDS ORDERED: BACTRIM DOUBLE S1 E1 ORAL (15:45)
[2016-12-10 16:00] VITALS: BP 150/92
[2016-12-10] MEDS ORDERED: D5W 275ml ONE (18:29)
[2016-12-10] MEDS ORDERED: Tubing IV Secondary IV ONE ×2 (18:29)
[2016-12-10] MEDS ORDERED: NS 275ml ONE (18:29)
--- NOTE | 2016-12-11 10:05 | Discharge Summary ---
Discharge Summary Hospital Course Date of Admission Dec 07, 2016 at 22:36 Date of Discharge Dec 10, 2016 at 18:30 Admitting Diagnosis LOWER EXTREMITY CELLULITIS HPI [place] Lozano is a 66 year old male who was admitted on Dec 07, 2016 at 22:36 for Lower Extremity Cellulitis Hospital Course [id number] Discharge Discharge Disposition Patient was discharged to Home (01) Discharge Diagnoses: Akanksha Rose NP Dec 11, 2016 10:05
--- NOTE | 2016-12-15 17:30 | Discharge Summary 2 SIG ---
DATE OF ADMISSION: 12/07/2016 DATE OF DISCHARGE: 12/10/2016 FOUNDRY SUPERVISOR: Yuriy Kelsey M.D. Brief Hospital Course: The patient is a 66-year-old male with no known medical history, presented to ED complaining of right leg pain. He was found on the street by EMS. He uses a wheelchair, status post left lower extremity amputation. The patient states that he is diabetic and has been complaining of pain to the right leg for several months now. On evaluation at ED, there was erythema and induration to the right lower extremity. Laboratories showed leukocytosis, WBC of 11. Lactate was greater than 3. Glucose was 354. He was admitted to medical floor for cellulitis of the right lower extremity and was started on IV vancomycin. He was given wound care. Blood cultures did not isolate any growth after 72 hours. MRSA screen was negative. Blood glucose was monitored and was given sliding scale of insulin. The patient was eventually discharged home to continue Bactrim for 10 more days. FINAL DIAGNOSES: 1. Cellulitis of the right lower extremity. 2. 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 3. Diabetes mellitus. 4. Sepsis. DISCHARGE DISPOSITION: The patient was discharged home. DISCHARGE MEDICATIONS: Refer to medication list. FOLLOWUP: The patient was advised to follow up with PMD. Kyra Massey M.D. I have been assigned to dictate discharge summary on this account and I was not involved in the patient's management. Akanksha Rose N.P. DR: ANGEL JOB#: [id number] CC: JAQUAN
== END 2016-12-10 18:30 | disposition home or self-care (01) | DRG 720 ==
LOC: EDBD 20:27 → EMR 21:05 → EDUNIT# 22:36 → 4E 22:36 → EDBEDREQ 23:13 → 4E 12-08 00:08
DX: A41.9 Sepsis, unspecified organism (principal); L03.115 Cellulitis of right lower limb; Z89.512 Acquired absence of left leg below knee; E11.9 Type 2 diabetes mellitus without complications; D72.829 Elevated white blood cell count, unspecified; Z79.4 Long term (current) use of insulin
CPT/HCPCS: 36415; 71010; 80053; 80202; 81003; 82550; 82553; 82962; 83605; 83735; 83880; 84100; 84484; 85025; 85610; 85730; 87040; 87081; 93005; 93306; 93970; 94664; 99285; J1815

== ENCOUNTER 2017-05-20 17:05 | Inpatient (IN) | payer MEDICAID ==
[~2017-05-20] VITALS: Ht 165.1 cm; Wt 81.6 kg
[~2017-05-20 17:05] MED LIST changes: +BACTRIM DOUBLE S1 E1 ORAL
[2017-05-20 17:24] VITALS: BP 152/90
[2017-05-20] MEDS ORDERED: Sodium Chloride 500ML 500 ML IV ONE (17:55)
[2017-05-20] MEDS ORDERED: Ampicillin/Sulbactam Sod 3 GM in NS 110 ML IVPB ONE (18:00)
[2017-05-20] MEDS ORDERED: Vancomycin 1 GM in D5W 275 ML IVPB ONE (18:00)
[2017-05-20] MEDS ORDERED: Unasyn 3gm Inj ONE (18:29)
[2017-05-20 18:39] LABS: BASOPHILS % (AUTO) 1.3 % (0.0-2.0); EOSINOPHILS % (AUTO) 4.9 % (0.0-3.0); HEMATOCRIT 32.7 % (42.0-52.0); MEAN CORPUSCULAR VOLUME 88 FL (80-99); MONOCYTES % (AUTO) 9.4 % (1.0-10.0); NEUTROPHILS % (AUTO) 59.4 % (45.0-75.0); PLATELET COUNT 183 K/UL (150-450); RED BLOOD COUNT 3.73 M/UL (4.70-6.10); RED CELL DISTRIBUTION WIDTH 12.5 % (11.6-14.8); WHITE BLOOD COUNT 7.2 K/UL (4.8-10.8)
[2017-05-20 18:58] LABS: ANION GAP 10 mmol/L (5-15); BLOOD UREA NITROGEN 16 mg/dL (7-18); CALCIUM 8.6 MG/DL (8.5-10.1); CARBON DIOXIDE 25 MMOL/L (21-32); CHLORIDE 94 MMOL/L (98-107); CREATININE 1.6 MG/DL (0.55-1.30); POTASSIUM 3.8 MMOL/L (3.5-5.1); SODIUM 128 MMOL/L (136-145)
[2017-05-20 19:02] LABS: ALANINE AMINOTRANSFERASE 23 U/L (12-78); ALBUMIN/GLOBULIN RATIO 0.7 (1.0-2.7); ALKALINE PHOSPHATASE 109 U/L (46-116); ASPARTATE AMINO TRANSFERASE 28 U/L (15-37); BILIRUBIN,TOTAL 0.2 MG/DL (0.2-1.0)
[2017-05-20 19:30] VITALS: BP 148/89
[2017-05-20] MEDS ORDERED: Vancomycin 1gm inj IVPB ONE (20:01)
--- NOTE | 2017-05-20 20:56 | Emergency Room Report ---
History of Present Illness General Chief Complaint: Pain Source: EMS Present Illness HPI 66 yo male patient presents to ER BIB ambulance complaining of foot cellulitis. Patient is a poor historian. Paramedics reports patient has possible cellulitis and necrosis of right foot. Reports patient has a hx of poorly controlled diabetes and ETOH abuse. Reports history of left foot amputation. Nichole fever, chest pain, SOB. Patient has previously been seen in ER for treatment of cellulitis of right foot. Allergies: Coded Allergies: No Known Allergies (Unverified , 11/16/14) Patient History Past Medical History: see triage record Reviewed Nursing Documentation: PMH: Agreed, PSxH: Agreed Nursing Documentation-PMH Past Medical History: No History, Except For Hx Cardiac Problems: No Hx Hypertension: Yes Hx Diabetes: Yes Hx Cancer: No Hx Gastrointestinal Problems: No Hx Neurological Problems: No Hx Cerebrovascular Accident: No - ETOH ABUSE Hx Fatigue: Yes Review of Systems All Other Systems: negative except mentioned in HPI Physical Exam Vital Signs Date Time Temp Pulse Resp B/P (MAP) Pulse Ox O2 Delivery O2 Flow Rate FiO2 05/20/17 17:14 97.6 88 16 152/90 99 Room Air 97.5 Sp02 EP Interpretation: reviewed, normal General Appearance: well appearing, no apparent distress, alert, non-toxic, other - dirty clothes Head: normocephalic, atraumatic Respiratory: lungs clear, normal breath sounds, no rhonchi, no respiratory distress, no accessory muscle use, no wheezing, speaking full sentences Cardiovascular #1: regular rate, rhythm Gastrointestinal: non tender, soft, no mass, non-distended, no guarding, no rebound Musculoskeletal: back normal, digits/nails normal, normal range of motion, non- tender, other - left foot amputated Neurologic: alert, oriented x3, responsive, motor strength/tone normal, sensory intact Psychiatric: mood/affect normal Skin: rash, other - ulcr on medial aspect of big toe of right foot, erythematous, swollen, pus draining, dry cracked skin, foul smelling Lymphatic: no adenopathy Medical Decision Making PA Attestation Dr. Johnson is my supervising Physician whom patient management has been discussed with. Diagnostic Impression: Primary Impression: Cellulitis of right lower extremity ER Course Pt. presents to the ED c/o right foot cellulitis. Ddx considered but are not limited to cellulitis, peripheral vascular disease, gangrene, necrotizing fasciitis. Vital signs: are WNL, pt. is afebrile PE shows erythema, cellulitis. No crepitus, low suspicion for necrotizing fasciitis. Ordered labs, foot xray, and medication. ER COURSE: No elevation of WBC Xray negative for subcutaneous gas or fracture Blood glucose elevated; Dr. Johnson ordered insulin. Results discussed with Dr. Johnson. Discuss patient with Dr. Johnson; patient will be admitted to med-surg to Dr. Knight. Labs Test 05/20/17 18:05 05/20/17 21:20 White Blood Count 7.2 K/UL (4.8-10.8) Red Blood Count 3.73 M/UL (4.70-6.10) Hemoglobin 11.0 G/DL (14.2-18.0) Hematocrit 32.7 % (42.0-52.0) Mean Corpuscular Volume 88 FL (80-99) Mean Corpuscular Hemoglobin 29.5 PG (27.0-31.0) Mean Corpuscular Hemoglobin Concent 33.7 G/DL (32.0-36.0) Red Cell Distribution Width 12.5 % (11.6-14.8) Platelet Count 183 K/UL (150-450) Mean Platelet Volume 9.5 FL (6.5-10.1) Neutrophils (%) (Auto) 59.4 % (45.0-75.0) Lymphocytes (%) (Auto) 25.0 % (20.0-45.0) Monocytes (%) (Auto) 9.4 % (1.0-10.0) Eosinophils (%) (Auto) 4.9 % (0.0-3.0) Basophils (%) (Auto) 1.3 % (0.0-2.0) Sodium Level 128 MMOL/L (136-145) Potassium Level 3.8 MMOL/L (3.5-5.1) Chloride Level 94 MMOL/L (98-107) Carbon Dioxide Level 25 MMOL/L (21-32) Anion Gap 10 mmol/L (5-15) Blood Urea Nitrogen 16 mg/dL (7-18) Creatinine 1.6 MG/DL (0.55-1.30) Estimat Glomerular Filtration Rate 43.3 mL/min (>60) Glucose Level 329 MG/DL (74-106) Calcium Level 8.6 MG/DL (8.5-10.1) Total Bilirubin 0.2 MG/DL (0.2-1.0) Aspartate Amino Transf (AST/SGOT) 28 U/L (15-37) Alanine Aminotransferase (ALT/SGPT) 23 U/L (12-78) Alkaline Phosphatase 109 U/L (46-116) Total Protein 7.1 G/DL (6.4-8.2) Albumin 3.0 G/DL (3.4-5.0) Globulin 4.1 g/dL Albumin/Globulin Ratio 0.7 (1.0-2.7) Lipase 176 U/L (73-393) Urine Color Yellow Urine Appearance Clear Urine pH 5 (4.5-8.0) Urine Specific [place] 1.010 (1.005-1.035) Urine Protein 3+ (NEGATIVE) Urine Glucose (UA) 4+ (NEGATIVE) Urine Ketones 1+ (NEGATIVE) Urine Occult Blood 1+ (NEGATIVE) Urine Nitrite Negative (NEGATIVE) Urine Bilirubin Negative (NEGATIVE) Urine Urobilinogen Normal MG/DL (0.0-1.0) Urine Leukocyte Esterase 1+ (NEGATIVE) Urine RBC 0-2 /HPF (0 - 0) Urine WBC 2-4 /HPF (0 - 0) Urine Squamous Epithelial Cells Occasional /LPF Urine Bacteria Few /HPF (NONE) Last Vital Signs Date Time Temp Pulse Resp B/P (MAP) Pulse Ox O2 Delivery O2 Flow Rate FiO2 05/20/17 17:24 97.5 16 152/90 99 Room Air 97.5 05/20/17 17:14 88 Disposition: ADMITTED INPATIENT Referrals: NOT CHOSEN IPA/,REFERRING (PCP) Kyle Santana May 20, 2017 20:56
[2017-05-20 21:35] VITALS: BP 145/91
[2017-05-20 21:40] LABS: APPEARANCE,URINE CLEAR; BILIRUBIN, URINE NEGATIVE (NEGATIVE); GLUCOSE, URINE (UA) 4+ (NEGATIVE); KETONES,URINE 1+ (NEGATIVE); LEUKOCYTE ESTERASE ,URINE 1+ (NEGATIVE); NITRITE,URINE NEGATIVE (NEGATIVE); PH,URINE 5 (4.5-8.0); PROTEIN,URINE 3+ (NEGATIVE); UROBILINOGEN,URINE NORMAL MG/DL (0.0-1.0)
[2017-05-20 21:41] LABS: COLOR,URINE YELLOW
[2017-05-20] MEDS ORDERED: Nitroglycerin Subl 0.4mg tab SL PRN (21:45)
[2017-05-20] MEDS ORDERED: Morphine Sulfate 2mg/ml Inj IVP PRN (21:45)
[2017-05-20] MEDS ORDERED: Albuterol/Ipratropium 3ml neb HHN PRN (21:45)
[2017-05-20] MEDS ORDERED: Miralax 17gm pkt ORAL PRN (21:45)
[2017-05-20] MEDS ORDERED: Vancomycin 500mg/D5W 110ml IVPB ONE ×2 (22:45)
[2017-05-20 23:05] VITALS: BP 142/88
[2017-05-21] VITALS (7 sets, daily range): BP systolic 118–149; BP diastolic 65–82
[2017-05-21] MEDS ORDERED: Vancomycin 1 GM in D5W 275 ML IV SCH (00:30)
[2017-05-21 07:09] LABS: EOSINOPHILS % (AUTO) 3.1 % (0.0-3.0); HEMATOCRIT 33.9 % (42.0-52.0); HEMOGLOBIN 11.4 G/DL (14.2-18.0); LYMPHOCYTES % (AUTO) 17.5 % (20.0-45.0); MEAN CORPUSCULAR VOLUME 88 FL (80-99); MONOCYTES % (AUTO) 8.6 % (1.0-10.0); NEUTROPHILS % (AUTO) 69.8 % (45.0-75.0); PLATELET COUNT 186 K/UL (150-450); RED BLOOD COUNT 3.87 M/UL (4.70-6.10); RED CELL DISTRIBUTION WIDTH 12.7 % (11.6-14.8); WHITE BLOOD COUNT 7.3 K/UL (4.8-10.8)
[2017-05-21 07:19] LABS: ALANINE AMINOTRANSFERASE 21 U/L (12-78); ALBUMIN 2.8 G/DL (3.4-5.0); ALBUMIN/GLOBULIN RATIO 0.7 (1.0-2.7); ALKALINE PHOSPHATASE 115 U/L (46-116); ANION GAP 9 mmol/L (5-15); ASPARTATE AMINO TRANSFERASE 21 U/L (15-37); BILIRUBIN,TOTAL 0.3 MG/DL (0.2-1.0); BLOOD UREA NITROGEN 15 mg/dL (7-18); CALCIUM 8.5 MG/DL (8.5-10.1); CARBON DIOXIDE 26 MMOL/L (21-32); CHLORIDE 98 MMOL/L (98-107); CREATININE 1.2 MG/DL (0.55-1.30); POTASSIUM 3.8 MMOL/L (3.5-5.1); SODIUM 133 MMOL/L (136-145)
--- NOTE | 2017-05-21 08:49 | Diagnostic Imaging Report ---
Indication: Reason For Exam: PAIN Technique: 3 views right foot Comparison: none Findings: No acute fractures. No dislocations. Bones are osteoporotic. The joint spaces are preserved. There is surgical hardware in the distal ankle. No osseous erosion or osteolytic process. There is questionably a small soft tissue ulcer at the level of the medial midfoot. Impression: No acute bony trauma No definite plain radiographic evidence of osteomyelitis. Note, however, that sensitivity of plain radiographs is limited for such, particularly in setting of osteoporosis. Consider MRI or bone scan for better evaluation
[2017-05-21] MEDS: NovoLOG Insulin Flexpen SUBQ SCH ×3 (09:22→21:28)
[2017-05-21] MEDS: Cefepime HCl 2 GM in D5W 110 ML IV SCH ×2 (10:26→21:26)
[2017-05-21] MEDS: Heparin 5000 units/ml inj SUBQ SCH ×2 (10:43→21:28)
--- NOTE | 2017-05-21 11:59 | Diagnostic Imaging Report ---
APPROVED REPORT CPT Code: 46497 Present Symptoms Comments: R/O DVT Post below the knee amputation RIGHT LEG: Venous imaging reveals a patent deep venous system. There is no evidence of thrombus within the femoral, popliteal or tibial segments. The greater saphenous vein is also within normal limits. Doppler indicates normal spontaneous flow within these segments. LEFT LEG: Venous imaging reveals recanalized chronic thrombus in the superficial femoral vein. Imaging also reveals patency of the common femoral and popliteal veins. The greater saphenous vein is also within normal limits. Doppler indicates normal spontaneous flow within these segments. There is no evidence of acute deep vein thrombosis.
--- NOTE | 2017-05-21 15:37 | History and Physical ---
History of Present Illness General Date patient seen: May 21, 2017 Reason for Hospitalization: Pain Present Illness HPI 66 yo male with hx of DM, HTN, CVA, AKA left leg presented to ER BIB ambulance complaining of foot cellulitis. patient has possible cellulitis and necrosis of right foot. patient has a hx of poorly controlled diabetes and ETOH abuse. Allergies: Coded Allergies: No Known Allergies (Unverified , 11/16/14) Medication History Scheduled No Known Medications* (NKM - No Known Medications*), 0 ., (Reported) Discontinued Medications Amoxicillin/Potassium Clav 875-125* (Augmentin 875-125 Tablet*), 1 TAB ORAL TWICE A DAY, (Reported) Discontinued Reason: Therapy completed Metformin Hcl* (Metformin Hcl*), 1,000 MG ORAL BID, (Reported) Discontinued Reason: Pt stopped taking med Trimethoprim/Sulfamethoxazole (Bactrim 400-80 mg Tablet), 1 TAB ORAL TWICE A DAY Discontinued Reason: Therapy completed Patient History Healthcare decision maker Resuscitation status Full Code Advanced Directive on File Review of Systems All Other Systems: negative except mentioned in HPI Physical Exam General Appearance: WD/WN Lines, tubes and drains: peripheral HEENT: normocephalic Neck: non-tender Respiratory/Chest: chest wall non-tender, normal breath sounds Breasts: no masses Cardiovascular/Chest: normal peripheral pulses Abdomen: normal bowel sounds, hyperactive bowel sounds Genitourinary/Rectal: normal prostate exam Extremities: inflammation - of righ foot, other - left akA, Last 24 Hour Vital Signs Date Time Temp Pulse Resp B/P (MAP) Pulse Ox O2 Delivery O2 Flow Rate FiO2 05/21/17 12:00 100.0 79 20 132/70 96 100.0 05/21/17 11:24 100.0 05/21/17 10:25 100.4 05/21/17 08:00 100.4 88 20 135/70 96 100.4 05/21/17 04:00 98.2 93 19 143/71 91 Room Air 98.2 05/21/17 00:09 98.1 83 20 122/65 94 Room Air 98.1 05/20/17 23:50 97.8 86 15 142/88 99 Room Air 97.8 05/20/17 23:05 97.8 86 15 142/88 99 Room Air 97.8 05/20/17 21:35 89 17 145/91 98 Room Air 05/20/17 19:30 97.6 88 17 148/89 99 Room Air 97.6 05/20/17 17:24 97.5 16 152/90 99 Room Air 97.5 05/20/17 17:14 97.6 88 16 152/90 99 Room Air 97.5 Intake and Output 05/20/17 05/21/17 19:00 07:00 Output Total 800 ml Balance -800 ml Output Urine Total 800 ml # Voids 4 Laboratory Tests Test 05/20/17 18:05 05/20/17 21:20 05/21/17 05:30 White Blood Count 7.2 K/UL (4.8-10.8) 7.3 K/UL (4.8-10.8) Red Blood Count 3.73 M/UL (4.70-6.10) L 3.87 M/UL (4.70-6.10) L Hemoglobin 11.0 G/DL (14.2-18.0) L 11.4 G/DL (14.2-18.0) L Hematocrit 32.7 % (42.0-52.0) L 33.9 % (42.0-52.0) L Mean Corpuscular Volume 88 FL (80-99) 88 FL (80-99) Mean Corpuscular Hemoglobin 29.5 PG (27.0-31.0) 29.5 PG (27.0-31.0) Mean Corpuscular Hemoglobin Concent 33.7 G/DL (32.0-36.0) 33.7 G/DL (32.0-36.0) Red Cell Distribution Width 12.5 % (11.6-14.8) 12.7 % (11.6-14.8) Platelet Count 183 K/UL (150-450) 186 K/UL (150-450) Mean Platelet Volume 9.5 FL (6.5-10.1) 8.6 FL (6.5-10.1) Neutrophils (%) (Auto) 59.4 % (45.0-75.0) 69.8 % (45.0-75.0) Lymphocytes (%) (Auto) 25.0 % (20.0-45.0) 17.5 % (20.0-45.0) L Monocytes (%) (Auto) 9.4 % (1.0-10.0) 8.6 % (1.0-10.0) Eosinophils (%) (Auto) 4.9 % (0.0-3.0) H 3.1 % (0.0-3.0) H Basophils (%) (Auto) 1.3 % (0.0-2.0) 1.0 % (0.0-2.0) Sodium Level 128 MMOL/L (136-145) L 133 MMOL/L (136-145) L Potassium Level 3.8 MMOL/L (3.5-5.1) 3.8 MMOL/L (3.5-5.1) Chloride Level 94 MMOL/L (98-107) L 98 MMOL/L (98-107) Carbon Dioxide Level 25 MMOL/L (21-32) 26 MMOL/L (21-32) Anion Gap 10 mmol/L (5-15) 9 mmol/L (5-15) Blood Urea Nitrogen 16 mg/dL (7-18) 15 mg/dL (7-18) Creatinine 1.6 MG/DL (0.55-1.30) H 1.2 MG/DL (0.55-1.30) Estimat Glomerular Filtration Rate 43.3 mL/min (>60) > 60 mL/min (>60) Glucose Level 329 MG/DL (74-106) H 292 MG/DL (74-106) H Calcium Level 8.6 MG/DL (8.5-10.1) 8.5 MG/DL (8.5-10.1) Total Bilirubin 0.2 MG/DL (0.2-1.0) 0.3 MG/DL (0.2-1.0) Aspartate Amino Transf (AST/SGOT) 28 U/L (15-37) 21 U/L (15-37) Alanine Aminotransferase (ALT/SGPT) 23 U/L (12-78) 21 U/L (12-78) Alkaline Phosphatase 109 U/L (46-116) 115 U/L (46-116) Total Protein 7.1 G/DL (6.4-8.2) 7.0 G/DL (6.4-8.2) Albumin 3.0 G/DL (3.4-5.0) L 2.8 G/DL (3.4-5.0) L Globulin 4.1 g/dL 4.2 g/dL Albumin/Globulin Ratio 0.7 (1.0-2.7) L 0.7 (1.0-2.7) L Lipase 176 U/L (73-393) Urine Color Yellow Urine Appearance Clear Urine pH 5 (4.5-8.0) Urine Specific [place] 1.010 (1.005-1.035) Urine Protein 3+ (NEGATIVE) H Urine Glucose (UA) 4+ (NEGATIVE) H Urine Ketones 1+ (NEGATIVE) H Urine Occult Blood 1+ (NEGATIVE) H Urine Nitrite Negative (NEGATIVE) Urine Bilirubin Negative (NEGATIVE) Urine Urobilinogen Normal MG/DL (0.0-1.0) Urine Leukocyte Esterase 1+ (NEGATIVE) H Urine RBC 0-2 /HPF (0 - 0) H Urine WBC 2-4 /HPF (0 - 0) Urine Squamous Epithelial Cells Occasional /LPF Urine Bacteria Few /HPF (NONE) Height (Feet): 5 Height (Inches): 7.00 Weight (Pounds): 180 Medications Current Medications Medications (Trade) Dose Ordered Sig/Caden Route PRN Reason Start Time Stop Time Status Last Admin Dose Admin Acetaminophen (Tylenol) 650 mg Q4H PRN ORAL fever 05/20/17 21:45 06/19/17 21:44 05/21/17 10:25 Albuterol/ Ipratropium (Albuterol/ Ipratropium) 3 ml EVERY 4 HOURS PRN HHN Shortness of Breath 05/20/17 21:45 05/25/17 21:44 Cefepime HCl 2 gm/ Dextrose 110 ml @ 220 mls/hr EVERY 12 HOURS IV 05/21/17 09:00 05/28/17 08:59 05/21/17 10:26 Dextrose (Dextrose 50%) STAT PRN IV Hypoglycemia 05/21/17 07:30 06/20/17 07:29 Heparin Sodium (Porcine) (Heparin 5000 units/ml) 5,000 units EVERY 12 HOURS SUBQ 05/21/17 09:00 06/20/17 08:59 05/21/17 10:43 Insulin Aspart (NovoLOG) BEFORE MEALS AND HS SUBQ 05/21/17 08:30 06/20/17 08:29 05/21/17 09:22 Morphine Sulfate (Morphine Sulfate) 2 mg EVERY 4 HOURS PRN IVP Moderate Pain (Pain Scale 4-6) 05/20/17 21:45 05/27/17 21:44 Nitroglycerin (Ntg) 0.4 mg Every 5 Minutes PRN SL Prn Chest Pain 05/20/17 21:45 06/19/17 21:44 Ondansetron HCl (Zofran) 4 mg Q6H PRN IVP Nausea & Vomiting 05/20/17 21:45 06/19/17 21:44 Polyethylene Glycol (Miralax) 17 gm DAILYPRN PRN ORAL Constipation 05/20/17 21:45 06/19/17 21:44 Temazepam (Restoril) 15 mg HSPRN PRN ORAL Insomnia 05/20/17 21:45 05/27/17 21:44 Vancomycin HCl/ Dextrose 250 ml @ 125 mls/hr Q24H IVPB 05/21/17 18:00 05/26/17 17:59 Assessment/Plan Problem List: (1) Ulcer of heel and midfoot ICD Codes: L97.409 - Ulcer of heel and midfoot SNOMED: 78765914 (2) ETOH abuse ICD Codes: F10.10 - Alcohol abuse, uncomplicated SNOMED: 19842420 (3) HTN (hypertension) ICD Codes: I10 - Essential (primary) hypertension SNOMED: 97253552 (4) Diabetes ICD Codes: E11.9 - Diabetes SNOMED: 91815445 (5) Anemia ICD Codes: D64.9 - Anemia SNOMED: 179318551 (6) S/P BKA (below knee amputation) ICD Codes: Z89.519 - Acquired absence of unspecified leg below knee SNOMED: 803772909 Assessment/Plan iv abx wound cultures ID to see TYESHA MARION May 21, 2017 15:37
--- NOTE | 2017-05-21 16:09 | Consultation ---
Consult Note Consult Note [id number] FELISA BAIRES M.D. May 21, 2017 16:09
[2017-05-21] MEDS: Vancomycin 1.5 GM/D5W 250ML IVPB SCH (18:49)
--- NOTE | 2017-05-21 23:30 | Consultation ---
DATE OF CONSULTATION: 05/21/2017 INFECTIOUS DISEASES CONSULTATION CONSULTING PHYSICIAN: Yuriy Kelsey M.D. REQUESTING PHYSICIAN: Kyra Massey M.D. REASON FOR CONSULTATION: Evaluation of the patient for foot cellulitis and antibiotic management. HISTORY OF PRESENT ILLNESS: The patient is a 66-year-old male with multiple medical problems, who was admitted to this medical center for right lower extremity cellulitis and foot pain. Infectious Disease consultation has been requested for further evaluation of the patient and antibiotic management. PAST MEDICAL HISTORY: 1. Diabetes. 2. Hyperlipidemia. 3. Hypertension. 4. Left BKA. 5. History of alcohol abuse and smoking until recently. ALLERGIES: No known drug allergies. SOCIAL HISTORY: As mentioned above. FAMILY HISTORY: Noncontributory. REVIEW OF SYSTEMS: A 10-point review was done and except what is mentioned above has been negative. PHYSICAL EXAMINATION: VITAL SIGNS: Temperature 100, pulse 86, respiratory rate 18, and blood pressure 132/70. HEENT: The patient has bilateral conjunctivitis. NECK: No lymphadenopathy. CHEST: Clear. HEART: S1 and S2. ABDOMEN: Soft. EXTREMITIES: The patient has right foot cellulitis, left BKA. NEUROLOGIC: Awake and alert. LABORATORY DATA: White blood cells 7, hemoglobin 11, and platelets 186,000. UA unremarkable. BUN 15 and creatinine 1.2. ALT, AST, and alkaline phosphatase are unremarkable. The venous duplex of lower extremity shows chronic thrombosis of superficial femoral vein. An x-ray of the foot, no evidence of fracture or . ASSESSMENT: 1. The patient is a 66-year-old male with multiple medical problems, who was admitted with right foot cellulitis. The patient has a wound of the right big toe. 2. Fever. 3. Normal white blood cells. PLAN: 1. We will continue the patient on vancomycin and cefepime for now. 2. Monitor CBC. 3. Monitor BMP. 4. MRI of the right foot to rule out osteomyelitis of the right big toe. 5. The patient is . Also, we will add anaerobic coverage. 6. Monitor the patient's clinical course, laboratories, and cultures and based on those, we will do further recommendations. 7. Monitor blood culture. 8. Influenza screening tests. Thank you, Dr. Massey, for allowing me to participate in the care of this patient. I will follow the patient with you during this hospitalization. Yuriy Kelsey M.D. DR: ROCAEL JOB#: [id number] CC:
[2017-05-22] MEDS: NovoLOG Insulin Flexpen SUBQ SCH ×4 (06:30→22:46)
[2017-05-22 07:46] LABS: BASOPHILS % (AUTO) 1.1 % (0.0-2.0); EOSINOPHILS % (AUTO) 2.6 % (0.0-3.0); HEMATOCRIT 34.9 % (42.0-52.0); HEMOGLOBIN 11.7 G/DL (14.2-18.0); LYMPHOCYTES % (AUTO) 18.5 % (20.0-45.0); MEAN CORPUSCULAR VOLUME 88 FL (80-99); NEUTROPHILS % (AUTO) 68.7 % (45.0-75.0); PLATELET COUNT 168 K/UL (150-450); RED BLOOD COUNT 3.96 M/UL (4.70-6.10); RED CELL DISTRIBUTION WIDTH 12.6 % (11.6-14.8); WHITE BLOOD COUNT 7.1 K/UL (4.8-10.8)
[2017-05-22 08:01] LABS: ANION GAP 9 mmol/L (5-15); BLOOD UREA NITROGEN 14 mg/dL (7-18); CARBON DIOXIDE 27 MMOL/L (21-32); CHLORIDE 97 MMOL/L (98-107); POTASSIUM 3.5 MMOL/L (3.5-5.1); SODIUM 133 MMOL/L (136-145)
[2017-05-22 08:02] LABS: ALANINE AMINOTRANSFERASE 17 U/L (12-78); ALBUMIN 2.7 G/DL (3.4-5.0); ALBUMIN/GLOBULIN RATIO 0.6 (1.0-2.7); ALKALINE PHOSPHATASE 103 U/L (46-116); ASPARTATE AMINO TRANSFERASE 18 U/L (15-37); BILIRUBIN,TOTAL 0.5 MG/DL (0.2-1.0); CALCIUM 8.7 MG/DL (8.5-10.1); PHOSPHORUS 3.2 MG/DL (2.5-4.9)
[2017-05-22 08:25] VITALS: BP 111/61
[2017-05-22] MEDS: Cefepime HCl 2 GM in D5W 110 ML IV SCH ×2 (08:54→22:44)
[2017-05-22] MEDS: Heparin 5000 units/ml inj SUBQ SCH ×2 (09:00→22:47)
--- NOTE | 2017-05-22 11:11 | Pulmonology Progress Note ---
Assessment/Plan Problems: (1) Cellulitis of right lower extremity (2) Ulcer of heel and midfoot (3) ETOH abuse (4) HTN (hypertension) (5) Diabetes (6) Anemia (7) S/P BKA (below knee amputation) Assessment/Plan continue abx check cutlrues f/u ID recommendations Subjective ROS Limited/Unobtainable: No Allergies: Coded Allergies: No Known Allergies (Unverified , 11/16/14) Objective Last 24 Hour Vital Signs Date Time Temp Pulse Resp B/P (MAP) Pulse Ox O2 Delivery O2 Flow Rate FiO2 05/22/17 08:25 98.2 80 20 111/61 96 98.2 05/21/17 23:59 98.1 74 20 149/82 96 Room Air 98.1 05/21/17 19:26 98.1 77 20 118/65 96 Room Air 98.1 05/21/17 19:20 77 18 Room Air 21 05/21/17 16:00 98.8 80 20 93 98.8 05/21/17 16:00 98.8 80 20 149/75 93 98.8 05/21/17 12:00 100.0 79 20 132/70 96 100.0 05/21/17 11:24 100.0 Intake and Output 05/21/17 05/22/17 19:00 07:00 Intake Total 315 ml 285 ml Output Total 850 ml Balance -535 ml 285 ml Intake Oral 240 ml IV Total 75 ml 285 ml Output Urine Total 850 ml # Bowel Movements 1 Objective General Appearance: WD/WN HEENT: normocephalic, atraumatic Respiratory/Chest: chest wall non-tender, lungs clear Breasts: no masses Cardiovascular: normal peripheral pulses, regular rhythm Abdomen: normal bowel sounds, soft, non tender Genitourinary: normal external genitalia Extremities: no cyanosis, aka Skin: extensive keratic lesions on leg Microbiology Date/Time Source Procedure Growth Status 05/22/17 05:20 Nasopharynx Influenza Types A,B Antigen (EM) - Final Complete Laboratory Tests 05/22/17 05:55: White Blood Count 7.1, Red Blood Count 3.96L, Hemoglobin 11.7L, Hematocrit 34.9L , Mean Corpuscular Volume 88, Mean Corpuscular Hemoglobin 29.5, Mean Corpuscular Hemoglobin Concent 33.4, Red Cell Distribution Width 12.6, Platelet Count 168, Mean Platelet Volume 9.3, Neutrophils (%) (Auto) 68.7, Lymphocytes (% ) (Auto) 18.5L, Monocytes (%) (Auto) 9.0, Eosinophils (%) (Auto) 2.6, Basophils (%) (Auto) 1.1, Erythrocyte Sedimentation Rate 56H, Sodium Level 133L, Potassium Level 3.5, Chloride Level 97L, Carbon Dioxide Level 27, Anion Gap 9, Blood Urea Nitrogen 14, Creatinine 1.0, Estimat Glomerular Filtration Rate > 60 , Glucose Level 204H, Calcium Level 8.7, Phosphorus Level 3.2, Magnesium Level 1.7L, Total Bilirubin 0.5, Aspartate Amino Transf (AST/SGOT) 18, Alanine Aminotransferase (ALT/SGPT) 17, Alkaline Phosphatase 103, C-Reactive Protein, Quantitative 3.5H, Total Protein 6.9, Albumin 2.7L, Globulin 4.2, Albumin/ Globulin Ratio 0.6L Current Medications Medications (Trade) Dose Ordered Sig/Caden Route PRN Reason Start Time Stop Time Status Last Admin Dose Admin Acetaminophen (Tylenol) 650 mg Q4H PRN ORAL fever 05/20/17 21:45 06/19/17 21:44 05/21/17 10:25 Albuterol/ Ipratropium (Albuterol/ Ipratropium) 3 ml EVERY 4 HOURS PRN HHN Shortness of Breath 05/20/17 21:45 05/25/17 21:44 Cefepime HCl 2 gm/ Dextrose 110 ml @ 220 mls/hr EVERY 12 HOURS IV 05/21/17 09:00 05/28/17 08:59 05/22/17 08:54 Dextrose (Dextrose 50%) STAT PRN IV Hypoglycemia 05/21/17 07:30 06/20/17 07:29 Heparin Sodium (Porcine) (Heparin 5000 units/ml) 5,000 units EVERY 12 HOURS SUBQ 05/21/17 09:00 06/20/17 08:59 05/22/17 09:00 Insulin Aspart (NovoLOG) BEFORE MEALS AND HS SUBQ 05/21/17 08:30 06/20/17 08:29 05/22/17 06:30 Magnesium Sulfate 100 ml @ 100 mls/hr Q1H IVPB 05/22/17 09:30 05/22/17 11:29 05/22/17 11:02 Morphine Sulfate (Morphine Sulfate) 2 mg EVERY 4 HOURS PRN IVP Moderate Pain (Pain Scale 4-6) 05/20/17 21:45 05/27/17 21:44 Nitroglycerin (Ntg) 0.4 mg Every 5 Minutes PRN SL Prn Chest Pain 05/20/17 21:45 06/19/17 21:44 Ondansetron HCl (Zofran) 4 mg Q6H PRN IVP Nausea & Vomiting 05/20/17 21:45 06/19/17 21:44 Polyethylene Glycol (Miralax) 17 gm DAILYPRN PRN ORAL Constipation 05/20/17 21:45 06/19/17 21:44 Temazepam (Restoril) 15 mg HSPRN PRN ORAL Insomnia 05/20/17 21:45 05/27/17 21:44 Vancomycin HCl/ Dextrose 250 ml @ 125 mls/hr Q24H IVPB 05/21/17 18:00 05/26/17 17:59 05/21/17 18:49 TYESHA MARION May 22, 2017 11:11
[2017-05-22 11:54] VITALS: BP 146/78
[2017-05-22 16:00] VITALS: BP 143/81
[2017-05-22] MEDS ORDERED: NS 500ML ONE (17:21)
[2017-05-22] MEDS ORDERED: Tubing IV Secondary IV ONE (17:21)
[2017-05-22] MEDS: Vancomycin 1.5 GM/D5W 250ML IVPB SCH (18:17)
[2017-05-22 21:05] VITALS: BP 135/77
--- NOTE | 2017-05-22 21:16 | Infectious Diseases Prog Note ---
Assessment/Plan Assessment/Plan ASSESSMENT: The patient is a 66-year-old male with Right foot cellulitis. right big toe. osteo Fever, SP Normal white blood cells Influenza screening tests : Neg Diabetes. Hyperlipidemia. Hypertension. Left BKA. History of alcohol abuse and smoking until recently. 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 PLAN: continue the patient on vancomycin and cefepime d# 2 ( if MRI +ve for Osteo , we will add anaerobic coverage) Monitor CBC. Monitor BMP. MRI of the right foot to rule out osteomyelitis of the right big toe. Monitor Wnd cultures Monitor blood culture. . Subjective Constitutional: Denies: no symptoms, fever, chills, fatigue, anorexia, drenching sweats, other Allergies: Coded Allergies: No Known Allergies (Unverified , 11/16/14) Objective Vital Signs Last 24 Hour Vital Signs Date Time Temp Pulse Resp B/P (MAP) Pulse Ox O2 Delivery O2 Flow Rate FiO2 05/22/17 21:05 99.5 75 16 135/77 98 99.5 05/22/17 16:00 97.0 80 20 143/81 96 97.0 05/22/17 11:54 98.2 73 20 146/78 98 98.2 05/22/17 08:25 98.2 80 20 111/61 96 98.2 05/22/17 07:00 81 18 Room Air 21 05/21/17 23:59 98.1 74 20 149/82 96 Room Air 98.1 Height (Feet): 5 Height (Inches): 7.00 Weight (Pounds): 180 HEENT: anicteric Respiratory/Chest: normal breath sounds Cardiovascular: no JVD Abdomen: soft, non tender Microbiology Date/Time Source Procedure Growth Status 05/22/17 05:20 Nasopharynx Influenza Types A,B Antigen (EM) - Final Complete Laboratory Tests Test 05/22/17 05:55 05/22/17 17:30 White Blood Count 7.1 K/UL (4.8-10.8) Red Blood Count 3.96 M/UL (4.70-6.10) L Hemoglobin 11.7 G/DL (14.2-18.0) L Hematocrit 34.9 % (42.0-52.0) L Mean Corpuscular Volume 88 FL (80-99) Mean Corpuscular Hemoglobin 29.5 PG (27.0-31.0) Mean Corpuscular Hemoglobin Concent 33.4 G/DL (32.0-36.0) Red Cell Distribution Width 12.6 % (11.6-14.8) Platelet Count 168 K/UL (150-450) Mean Platelet Volume 9.3 FL (6.5-10.1) Neutrophils (%) (Auto) 68.7 % (45.0-75.0) Lymphocytes (%) (Auto) 18.5 % (20.0-45.0) L Monocytes (%) (Auto) 9.0 % (1.0-10.0) Eosinophils (%) (Auto) 2.6 % (0.0-3.0) Basophils (%) (Auto) 1.1 % (0.0-2.0) Erythrocyte Sedimentation Rate 56 MM/HR (0-20) H Sodium Level 133 MMOL/L (136-145) L Potassium Level 3.5 MMOL/L (3.5-5.1) Chloride Level 97 MMOL/L (98-107) L Carbon Dioxide Level 27 MMOL/L (21-32) Anion Gap 9 mmol/L (5-15) Blood Urea Nitrogen 14 mg/dL (7-18) Creatinine 1.0 MG/DL (0.55-1.30) Estimat Glomerular Filtration Rate > 60 mL/min (>60) Glucose Level 204 MG/DL (74-106) H Calcium Level 8.7 MG/DL (8.5-10.1) Phosphorus Level 3.2 MG/DL (2.5-4.9) Magnesium Level 1.7 MG/DL (1.8-2.4) L Total Bilirubin 0.5 MG/DL (0.2-1.0) Aspartate Amino Transf (AST/SGOT) 18 U/L (15-37) Alanine Aminotransferase (ALT/SGPT) 17 U/L (12-78) Alkaline Phosphatase 103 U/L (46-116) C-Reactive Protein, Quantitative 3.5 mg/dL (0.00-0.90) H Total Protein 6.9 G/DL (6.4-8.2) Albumin 2.7 G/DL (3.4-5.0) L Globulin 4.2 g/dL Albumin/Globulin Ratio 0.6 (1.0-2.7) L Vancomycin Level Trough 8.3 ug/mL (5.0-12.0) Current Medications Medications (Trade) Dose Ordered Sig/Caden Route PRN Reason Start Time Stop Time Status Last Admin Dose Admin Acetaminophen (Tylenol) 650 mg Q4H PRN ORAL fever 05/20/17 21:45 06/19/17 21:44 05/21/17 10:25 Albuterol/ Ipratropium (Albuterol/ Ipratropium) 3 ml EVERY 4 HOURS PRN HHN Shortness of Breath 05/20/17 21:45 05/25/17 21:44 Cefepime HCl 2 gm/ Dextrose 110 ml @ 220 mls/hr EVERY 12 HOURS IV 05/21/17 09:00 05/28/17 08:59 05/22/17 08:54 Dextrose (Dextrose 50%) STAT PRN IV Hypoglycemia 05/21/17 07:30 06/20/17 07:29 Heparin Sodium (Porcine) (Heparin 5000 units/ml) 5,000 units EVERY 12 HOURS SUBQ 05/21/17 09:00 06/20/17 08:59 05/22/17 09:00 Insulin Aspart (NovoLOG) BEFORE MEALS AND HS SUBQ 05/21/17 08:30 06/20/17 08:29 05/22/17 16:49 Morphine Sulfate (Morphine Sulfate) 2 mg EVERY 4 HOURS PRN IVP Moderate Pain (Pain Scale 4-6) 05/20/17 21:45 05/27/17 21:44 Nitroglycerin (Ntg) 0.4 mg Every 5 Minutes PRN SL Prn Chest Pain 05/20/17 21:45 06/19/17 21:44 Ondansetron HCl (Zofran) 4 mg Q6H PRN IVP Nausea & Vomiting 05/20/17 21:45 06/19/17 21:44 Polyethylene Glycol (Miralax) 17 gm DAILYPRN PRN ORAL Constipation 05/20/17 21:45 06/19/17 21:44 Temazepam (Restoril) 15 mg HSPRN PRN ORAL Insomnia 05/20/17 21:45 05/27/17 21:44 Vancomycin HCl 1 gm/Dextrose 275 ml @ 183.708 mls/hr Q12HR@0600,1800 IVPB 05/23/17 06:00 05/28/17 05:59 Vancomycin HCl/ Dextrose 250 ml @ 125 mls/hr Q24H IVPB 05/21/17 18:00 05/26/17 17:59 05/22/17 18:17 FELISA BAIRES M.D. May 22, 2017 21:16
--- NOTE | 2017-05-22 21:54 | Wound Care Consultation ---
Wound Assessment Wound Assessment : Wound Number: 1 Wound Present on Admission: Yes New Wound: No Status Change of Wound: No Wound Location Body Site Modif: right Wound Location Body Site: toe - 1st Wound Type: other - cellulitis of the foot, lower leg and necrosis of the 1st toe Apple Test: Does not Apple Wound Thickness: Full Thickness Percent of Wound Bed Yellow/Wh: 100 Wound Drainage Odor: None/Absent Tissue Surrounding Wound: Erythemic Wound General Appearance: Reddened, Draining Wound Comment #1 Right foot, lower leg cellulitis and necrosis of the 1st toe. Lower leg dry scabs and open wounds. #2 Left and right ischial tuberosity with hyperpigmentation Recommendation -Local wound care per MD's order -Call MD for Podiatry consult for right foot -Keep clean and dry -Turn and reposition -Offload both heels -Heel protector on both heels -Optimize nutrition -Low air loss mattress -Assess and f/u accordingly for any changes WES PALOMARES RN May 22, 2017 21:54
[2017-05-23] MEDS: Vancomycin 1gm in D5W 275ml IVPB SCH ×2 (05:39→17:47)
[2017-05-23] MEDS: NovoLOG Insulin Flexpen SUBQ SCH ×4 (05:48→22:40)
--- NOTE | 2017-05-23 07:08 | Podiatric Progress Note ---
Assessment/Plan Patient Montana Lozano is a 66 year old male who was admitted on May 20, 2017 at 20:14 with Problems: Assessment/Plan A/ 1) Cellulitis RLE 2) DM foot ulcer right hallux 3) Left BKA 4) DM with neuropathy P/ 1) Cont abx per ID. MRI pending to evaluate for osteo. Sed rate and CRP noted, slightly elevated 2) Will order new wound care for autolytic debridement and additional skin care for right leg Thank you Dr Massey Subjective Allergies: Coded Allergies: No Known Allergies (Unverified , 11/16/14) Subjective Patient resting comfortably. Denies f/c/n/v. He admits to numbness in foot. He is homeless. Objective Exam Last 24 Hour Vital Signs Date Time Temp Pulse Resp B/P (MAP) Pulse Ox O2 Delivery O2 Flow Rate FiO2 05/22/17 21:05 99.5 75 16 135/77 98 99.5 05/22/17 16:00 97.0 80 20 143/81 96 97.0 05/22/17 11:54 98.2 73 20 146/78 98 98.2 05/22/17 08:25 98.2 80 20 111/61 96 98.2 Laboratory Tests Test 05/22/17 17:30 05/23/17 05:45 Vancomycin Level Trough 8.3 ug/mL (5.0-12.0) White Blood Count Pending Red Blood Count Pending Hemoglobin Pending Hematocrit Pending Mean Corpuscular Volume Pending Mean Corpuscular Hemoglobin Pending Mean Corpuscular Hemoglobin Concent Pending Red Cell Distribution Width Pending Platelet Count Pending Mean Platelet Volume Pending Neutrophils (%) (Auto) Pending Lymphocytes (%) (Auto) Pending Monocytes (%) (Auto) Pending Eosinophils (%) (Auto) Pending Basophils (%) (Auto) Pending Erythrocyte Sedimentation Rate Pending Sodium Level Pending Potassium Level Pending Chloride Level Pending Carbon Dioxide Level Pending Blood Urea Nitrogen Pending Creatinine Pending Estimat Glomerular Filtration Rate Pending Glucose Level Pending Calcium Level Pending Phosphorus Level Pending Magnesium Level Pending Total Bilirubin Pending Aspartate Amino Transf (AST/SGOT) Pending Alanine Aminotransferase (ALT/SGPT) Pending Alkaline Phosphatase Pending C-Reactive Protein, Quantitative Pending Total Protein Pending Albumin Pending Globulin Pending Microbiology Date/Time Source Procedure Growth Status 05/21/17 18:15 Blood Blood Culture - Preliminary NO GROWTH AFTER 24 HOURS Resulted 05/22/17 05:20 Nasopharynx Influenza Types A,B Antigen (EM) - Final Complete General Appearance: WD/WN, no apparent distress Musculoskeletal Assistive devices: wheelchair Vascular Pulses: 0 dorsalis pedis (R), 0 posterior tibial (R) Edema: no edema noted foot (R), no edema noted ankle (R) Pedal hair present: No Vascular discoloration: blanchable erythema Temperature: increased warmth Dermatological Dermatological Narrative Right hallux full thickness ulceration to right hallux. No bone exposed. Wound base fibrotic. Postivie erythema of entire RLE Scaling of entire RLE. No other open wounds noted Jermaine Patterson DPM May 23, 2017 07:08
[2017-05-23 07:14] LABS: BASOPHILS % (AUTO) 1.3 % (0.0-2.0); EOSINOPHILS % (AUTO) 4.5 % (0.0-3.0); HEMATOCRIT 34.1 % (42.0-52.0); HEMOGLOBIN 11.5 G/DL (14.2-18.0); MEAN CORPUSCULAR VOLUME 88 FL (80-99); MONOCYTES % (AUTO) 11.2 % (1.0-10.0); PLATELET COUNT 190 K/UL (150-450); RED BLOOD COUNT 3.89 M/UL (4.70-6.10); RED CELL DISTRIBUTION WIDTH 12.8 % (11.6-14.8); WHITE BLOOD COUNT 6.9 K/UL (4.8-10.8)
[2017-05-23 07:21] LABS: ALANINE AMINOTRANSFERASE 16 U/L (12-78); ALBUMIN 2.5 G/DL (3.4-5.0); ALBUMIN/GLOBULIN RATIO 0.6 (1.0-2.7); ALKALINE PHOSPHATASE 97 U/L (46-116); ANION GAP 6 mmol/L (5-15); ASPARTATE AMINO TRANSFERASE 18 U/L (15-37); BILIRUBIN,TOTAL 0.3 MG/DL (0.2-1.0); BLOOD UREA NITROGEN 16 mg/dL (7-18); CALCIUM 8.6 MG/DL (8.5-10.1); CARBON DIOXIDE 29 MMOL/L (21-32); CHLORIDE 100 MMOL/L (98-107); CREATININE 1.2 MG/DL (0.55-1.30); PHOSPHORUS 3.5 MG/DL (2.5-4.9); POTASSIUM 3.5 MMOL/L (3.5-5.1); SODIUM 135 MMOL/L (136-145)
[2017-05-23 08:38] VITALS: BP 140/83
[2017-05-23] MEDS: Cefepime HCl 2 GM in D5W 110 ML IV SCH ×2 (08:40→22:39)
[2017-05-23] MEDS: Heparin 5000 units/ml inj SUBQ SCH ×2 (08:44→22:40)
[2017-05-23] MEDS: Dakin's 0.125% Soln (Quarter Strength) 16oz TOPIC SCH (09:46)
[2017-05-23 12:00] VITALS: BP 158/87
--- NOTE | 2017-05-23 12:41 | Pulmonology Progress Note ---
Assessment/Plan Problems: (1) Cellulitis of right lower extremity (2) Ulcer of heel and midfoot (3) ETOH abuse (4) HTN (hypertension) (5) Diabetes (6) Anemia (7) S/P BKA (below knee amputation) Assessment/Plan continue abx check cutlrues f/u ID recommendations dc planning to a nursign home Subjective ROS Limited/Unobtainable: No HEENT: Repors: no symptoms Respiratory: Reports: no symptoms Allergies: Coded Allergies: No Known Allergies (Unverified , 11/16/14) Objective Last 24 Hour Vital Signs Date Time Temp Pulse Resp B/P (MAP) Pulse Ox O2 Delivery O2 Flow Rate FiO2 05/23/17 08:38 99.3 73 18 140/83 97 Room Air 99.3 05/23/17 07:50 76 18 Room Air 21 05/22/17 21:05 99.5 75 16 135/77 98 99.5 05/22/17 16:00 97.0 80 20 143/81 96 97.0 Intake and Output 05/22/17 05/23/17 19:00 07:00 Intake Total 450 ml 543.708 ml Output Total 650 ml 400 ml Balance -200 ml 143.708 ml Intake Oral 450 ml IV Total 543.708 ml Output Urine Total 650 ml 400 ml # Voids 3 # Bowel Movements 3 Objective General Appearance: WD/WN HEENT: normocephalic, atraumatic Respiratory/Chest: chest wall non-tender, lungs clear Breasts: no masses Cardiovascular: normal peripheral pulses, regular rhythm Abdomen: normal bowel sounds, soft, non tender Genitourinary: normal external genitalia Extremities: no cyanosis, aka Skin: extensive keratic lesions on leg Microbiology Date/Time Source Procedure Growth Status 05/21/17 18:15 Blood Blood Culture - Preliminary NO GROWTH AFTER 24 HOURS Resulted 05/21/17 18:00 Blood Blood Culture - Preliminary NO GROWTH AFTER 24 HOURS Resulted 05/22/17 05:20 Nasopharynx Influenza Types A,B Antigen (EM) - Final Complete 05/20/17 19:25 Nasal Nares MRSA Culture - Final NO METHICILLIN RESISTANT STAPH AUREUS... Complete Laboratory Tests 05/22/17 17:30: Vancomycin Level Trough 8.3 05/23/17 05:45: White Blood Count 6.9, Red Blood Count 3.89L, Hemoglobin 11.5L, Hematocrit 34.1L , Mean Corpuscular Volume 88, Mean Corpuscular Hemoglobin 29.5, Mean Corpuscular Hemoglobin Concent 33.6, Red Cell Distribution Width 12.8, Platelet Count 190, Mean Platelet Volume 9.8, Neutrophils (%) (Auto) 60.0, Lymphocytes (% ) (Auto) 23.0, Monocytes (%) (Auto) 11.2H, Eosinophils (%) (Auto) 4.5H, Basophils (%) (Auto) 1.3, Erythrocyte Sedimentation Rate [Pending], Sodium Level 135L, Potassium Level 3.5, Chloride Level 100, Carbon Dioxide Level 29, Anion Gap 6, Blood Urea Nitrogen 16, Creatinine 1.2, Estimat Glomerular Filtration Rate > 60, Glucose Level 154H, Calcium Level 8.6, Phosphorus Level 3.5, Magnesium Level 2.0, Total Bilirubin 0.3, Aspartate Amino Transf (AST/SGOT ) 18, Alanine Aminotransferase (ALT/SGPT) 16, Alkaline Phosphatase 97, C- Reactive Protein, Quantitative 2.4H, Total Protein 6.8, Albumin 2.5L, Globulin 4.3, Albumin/Globulin Ratio 0.6L Current Medications Medications (Trade) Dose Ordered Sig/Caden Route PRN Reason Start Time Stop Time Status Last Admin Dose Admin Acetaminophen (Tylenol) 650 mg Q4H PRN ORAL fever 05/20/17 21:45 06/19/17 21:44 05/21/17 10:25 Albuterol/ Ipratropium (Albuterol/ Ipratropium) 3 ml EVERY 4 HOURS PRN HHN Shortness of Breath 05/20/17 21:45 05/25/17 21:44 Cefepime HCl 2 gm/ Dextrose 110 ml @ 220 mls/hr EVERY 12 HOURS IV 05/21/17 09:00 05/28/17 08:59 05/23/17 08:40 Dextrose (Dextrose 50%) STAT PRN IV Hypoglycemia 05/21/17 07:30 06/20/17 07:29 Heparin Sodium (Porcine) (Heparin 5000 units/ml) 5,000 units EVERY 12 HOURS SUBQ 05/21/17 09:00 06/20/17 08:59 05/23/17 08:44 Insulin Aspart (NovoLOG) BEFORE MEALS AND HS SUBQ 05/21/17 08:30 06/20/17 08:29 05/23/17 11:22 Morphine Sulfate (Morphine Sulfate) 2 mg EVERY 4 HOURS PRN IVP Moderate Pain (Pain Scale 4-6) 05/20/17 21:45 05/27/17 21:44 Nitroglycerin (Ntg) 0.4 mg Every 5 Minutes PRN SL Prn Chest Pain 05/20/17 21:45 06/19/17 21:44 Ondansetron HCl (Zofran) 4 mg Q6H PRN IVP Nausea & Vomiting 05/20/17 21:45 06/19/17 21:44 Polyethylene Glycol (Miralax) 17 gm DAILYPRN PRN ORAL Constipation 05/20/17 21:45 06/19/17 21:44 Sodium Hypochlorite (Dakin's Quarter Strength) 1 applic DAILY TOPIC 05/23/17 09:00 06/22/17 08:59 05/23/17 09:46 Temazepam (Restoril) 15 mg HSPRN PRN ORAL Insomnia 05/20/17 21:45 05/27/17 21:44 Vancomycin HCl 1 gm/Dextrose 275 ml @ 183.708 mls/hr Q12HR@0600,1800 IVPB 05/23/17 06:00 05/28/17 05:59 05/23/17 05:39 Vancomycin HCl/ Dextrose 250 ml @ 125 mls/hr Q24H IVPB 05/21/17 18:00 05/26/17 17:59 05/22/17 18:17 TYESHA MARION May 23, 2017 12:41
[2017-05-23 16:32] VITALS: BP 164/92
[2017-05-23 21:00] VITALS: BP 126/66
[2017-05-24 04:00] VITALS: BP 122/68
[2017-05-24] MEDS: Vancomycin 1gm in D5W 275ml IVPB SCH ×2 (05:30→16:58)
[2017-05-24] MEDS: NovoLOG Insulin Flexpen SUBQ SCH ×4 (05:31→23:06)
[2017-05-24 07:28] LABS: BASOPHILS % (AUTO) 1.4 % (0.0-2.0); EOSINOPHILS % (AUTO) 5.1 % (0.0-3.0); HEMATOCRIT 34.8 % (42.0-52.0); HEMOGLOBIN 11.8 G/DL (14.2-18.0); LYMPHOCYTES % (AUTO) 24.7 % (20.0-45.0); MEAN CORPUSCULAR VOLUME 88 FL (80-99); NEUTROPHILS % (AUTO) 58.8 % (45.0-75.0); PLATELET COUNT 186 K/UL (150-450); RED BLOOD COUNT 3.94 M/UL (4.70-6.10); RED CELL DISTRIBUTION WIDTH 12.5 % (11.6-14.8); WHITE BLOOD COUNT 6.5 K/UL (4.8-10.8)
[2017-05-24 07:37] LABS: ALANINE AMINOTRANSFERASE 20 U/L (12-78); ALBUMIN 2.5 G/DL (3.4-5.0); ALBUMIN/GLOBULIN RATIO 0.6 (1.0-2.7); ALKALINE PHOSPHATASE 97 U/L (46-116); ANION GAP 7 mmol/L (5-15); ASPARTATE AMINO TRANSFERASE 22 U/L (15-37); BILIRUBIN,TOTAL 0.4 MG/DL (0.2-1.0); BLOOD UREA NITROGEN 15 mg/dL (7-18); CALCIUM 8.8 MG/DL (8.5-10.1); CARBON DIOXIDE 30 MMOL/L (21-32); CHLORIDE 96 MMOL/L (98-107); CREATININE 1.2 MG/DL (0.55-1.30); PHOSPHORUS 3.3 MG/DL (2.5-4.9); POTASSIUM 3.7 MMOL/L (3.5-5.1); SODIUM 133 MMOL/L (136-145)
[2017-05-24 09:00] VITALS: BP 123/62
[2017-05-24] MEDS: Cefepime HCl 2 GM in D5W 110 ML IV SCH (09:53)
[2017-05-24] MEDS: Dakin's 0.125% Soln (Quarter Strength) 16oz TOPIC SCH (09:53)
[2017-05-24] MEDS: Heparin 5000 units/ml inj SUBQ SCH ×2 (09:55→23:06)
--- NOTE | 2017-05-24 12:09 | Diagnostic Imaging Report ---
Indication: Open wound on big toe Technique: Coronal, sagittal, and axial T 1 fast spin echo and fast spin echo STIR images obtained of the forefoot Comparison: Reference made to plain radiograph dated 05/20/2017 Findings: Exam is limited due to motion artifact. Per technologist, patient was unable to keep his foot still. In the distal aspect of the fifth distal phalanx, there is suggestion of increased STIR signal and decreased T1 signal. There is soft tissue edema surrounding, mostly superficial to, this area, predominantly subungual. No other definite marrow signal abnormality demonstrated. No definite drainable abscess is demonstrated. Impression: Findings suspicious for a myelitis of the distal aspect of the first distal phalanx Soft tissue edema of the first toe, predominantly dorsal, likely on the basis of cellulitis given stated clinical history of ulcer in this area
[2017-05-24 12:16] VITALS: BP 141/81
--- NOTE | 2017-05-24 13:32 | Infectious Diseases Prog Note ---
Assessment/Plan Assessment/Plan ASSESSMENT: The patient is a 66-year-old male with Right foot cellulitis. right big toe. osteo -MRI R foot: Findings suspicious for osteomyelitis of the distal aspect of the first distal phalanx -wound cx p (however likely will isolated colonizers as no open wound or drainage) Fever, SP Normal white blood cells Influenza screening tests : Neg Diabetes. Hyperlipidemia. Hypertension. Left BKA. History of alcohol abuse and smoking until recently. 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 PLAN: continue the patient on vancomycin #4 and switch cefepime d# 4 to Ceftriaxone; for a total of 42 days for OM -weekly CBC, CMP Monitor CBC. Monitor BMP. Monitor Wnd cultures Monitor blood culture. . Subjective Allergies: Coded Allergies: No Known Allergies (Unverified , 11/16/14) Subjective afebrile in 74hrs no leukocytosis MRI +OM Objective Vital Signs Last 24 Hour Vital Signs Date Time Temp Pulse Resp B/P (MAP) Pulse Ox O2 Delivery O2 Flow Rate FiO2 05/24/17 12:16 98.2 82 18 141/81 98 98.2 05/24/17 09:00 97.7 72 19 123/62 98 97.7 05/24/17 08:38 83 18 Room Air 21 05/24/17 04:00 98.2 71 20 122/68 97 Room Air 98.2 05/23/17 21:00 98.9 70 20 126/66 96 Room Air 98.9 05/23/17 20:53 76 18 Room Air 21 05/23/17 16:32 97.7 74 18 164/92 99 Room Air 97.7 Height (Feet): 5 Height (Inches): 7.00 Weight (Pounds): 180 Objective General Appearance: WD/WN HEENT: normocephalic, atraumatic Respiratory/Chest: chest wall non-tender, lungs clear Breasts: no masses Cardiovascular: normal peripheral pulses, regular rhythm Abdomen: normal bowel sounds, soft, non tender Genitourinary: normal external genitalia Extremities: no cyanosis, aka Skin: extensive keratic lesions on leg Microbiology Date/Time Source Procedure Growth Status 05/21/17 18:15 Blood Blood Culture - Preliminary NO GROWTH AFTER 24 HOURS Resulted 05/21/17 18:00 Blood Blood Culture - Preliminary NO GROWTH AFTER 24 HOURS Resulted 05/22/17 05:20 Nasopharynx Influenza Types A,B Antigen (EM) - Final Complete 05/22/17 19:00 Foot Right Gram Stain - Final Resulted 05/22/17 19:00 Foot Right Wound Culture Pending Resulted Laboratory Tests Test 05/24/17 05:50 White Blood Count 6.5 K/UL (4.8-10.8) Red Blood Count 3.94 M/UL (4.70-6.10) L Hemoglobin 11.8 G/DL (14.2-18.0) L Hematocrit 34.8 % (42.0-52.0) L Mean Corpuscular Volume 88 FL (80-99) Mean Corpuscular Hemoglobin 29.9 PG (27.0-31.0) Mean Corpuscular Hemoglobin Concent 34.0 G/DL (32.0-36.0) Red Cell Distribution Width 12.5 % (11.6-14.8) Platelet Count 186 K/UL (150-450) Mean Platelet Volume 8.9 FL (6.5-10.1) Neutrophils (%) (Auto) 58.8 % (45.0-75.0) Lymphocytes (%) (Auto) 24.7 % (20.0-45.0) Monocytes (%) (Auto) 10.0 % (1.0-10.0) Eosinophils (%) (Auto) 5.1 % (0.0-3.0) H Basophils (%) (Auto) 1.4 % (0.0-2.0) Erythrocyte Sedimentation Rate 52 MM/HR (0-20) H Sodium Level 133 MMOL/L (136-145) L Potassium Level 3.7 MMOL/L (3.5-5.1) Chloride Level 96 MMOL/L (98-107) L Carbon Dioxide Level 30 MMOL/L (21-32) Anion Gap 7 mmol/L (5-15) Blood Urea Nitrogen 15 mg/dL (7-18) Creatinine 1.2 MG/DL (0.55-1.30) Estimat Glomerular Filtration Rate > 60 mL/min (>60) Glucose Level 225 MG/DL (74-106) H Calcium Level 8.8 MG/DL (8.5-10.1) Phosphorus Level 3.3 MG/DL (2.5-4.9) Magnesium Level 1.8 MG/DL (1.8-2.4) Total Bilirubin 0.4 MG/DL (0.2-1.0) Aspartate Amino Transf (AST/SGOT) 22 U/L (15-37) Alanine Aminotransferase (ALT/SGPT) 20 U/L (12-78) Alkaline Phosphatase 97 U/L (46-116) Total Protein 6.8 G/DL (6.4-8.2) Albumin 2.5 G/DL (3.4-5.0) L Globulin 4.3 g/dL Albumin/Globulin Ratio 0.6 (1.0-2.7) L Current Medications Medications (Trade) Dose Ordered Sig/Caden Route PRN Reason Start Time Stop Time Status Last Admin Dose Admin Acetaminophen (Tylenol) 650 mg Q4H PRN ORAL fever 05/20/17 21:45 06/19/17 21:44 05/21/17 10:25 Albuterol/ Ipratropium (Albuterol/ Ipratropium) 3 ml EVERY 4 HOURS PRN HHN Shortness of Breath 05/20/17 21:45 05/25/17 21:44 Cefepime HCl 2 gm/ Dextrose 110 ml @ 220 mls/hr EVERY 12 HOURS IV 05/21/17 09:00 05/28/17 08:59 05/24/17 09:53 Dextrose (Dextrose 50%) STAT PRN IV Hypoglycemia 05/21/17 07:30 06/20/17 07:29 Heparin Sodium (Porcine) (Heparin 5000 units/ml) 5,000 units EVERY 12 HOURS SUBQ 05/21/17 09:00 06/20/17 08:59 05/24/17 09:55 Insulin Aspart (NovoLOG) BEFORE MEALS AND HS SUBQ 05/21/17 08:30 06/20/17 08:29 05/24/17 12:10 Morphine Sulfate (Morphine Sulfate) 2 mg EVERY 4 HOURS PRN IVP Moderate Pain (Pain Scale 4-6) 05/20/17 21:45 05/27/17 21:44 Nitroglycerin (Ntg) 0.4 mg Every 5 Minutes PRN SL Prn Chest Pain 05/20/17 21:45 06/19/17 21:44 Ondansetron HCl (Zofran) 4 mg Q6H PRN IVP Nausea & Vomiting 05/20/17 21:45 06/19/17 21:44 Polyethylene Glycol (Miralax) 17 gm DAILYPRN PRN ORAL Constipation 05/20/17 21:45 06/19/17 21:44 Sodium Hypochlorite (Dakin's Quarter Strength) 1 applic DAILY TOPIC 05/23/17 09:00 06/22/17 08:59 05/24/17 09:53 Temazepam (Restoril) 15 mg HSPRN PRN ORAL Insomnia 05/20/17 21:45 05/27/17 21:44 Vancomycin HCl 1 gm/Dextrose 275 ml @ 183.708 mls/hr Q12HR@0600,1800 IVPB 05/23/17 06:00 05/28/17 05:59 05/24/17 05:30 Dena Frank M.D. May 24, 2017 13:32
--- NOTE | 2017-05-24 17:59 | Pulmonology Progress Note ---
Assessment/Plan Problems: (1) Cellulitis of right lower extremity (2) Ulcer of heel and midfoot (3) ETOH abuse (4) HTN (hypertension) (5) Diabetes (6) Anemia (7) S/P BKA (below knee amputation) Assessment/Plan continue abx check cutlrues f/u ID recommendations dc planning to a nursign home Subjective ROS Limited/Unobtainable: No Constitutional: Reports: no symptoms HEENT: Repors: no symptoms Respiratory: Reports: no symptoms Allergies: Coded Allergies: No Known Allergies (Unverified , 11/16/14) Objective Last 24 Hour Vital Signs Date Time Temp Pulse Resp B/P (MAP) Pulse Ox O2 Delivery O2 Flow Rate FiO2 05/24/17 12:16 98.2 82 18 141/81 98 98.2 05/24/17 09:00 97.7 72 19 123/62 98 97.7 05/24/17 08:38 83 18 Room Air 21 05/24/17 04:00 98.2 71 20 122/68 97 Room Air 98.2 05/23/17 21:00 98.9 70 20 126/66 96 Room Air 98.9 05/23/17 20:53 76 18 Room Air 21 Intake and Output 05/23/17 05/24/17 19:00 07:00 Intake Total 720 ml 693.708 ml Output Total 1500 ml 600 ml Balance -780 ml 93.708 ml Intake Oral 720 ml 400 ml IV Total 293.708 ml Output Urine Total 1500 ml 600 ml # Voids 2 Objective General Appearance: WD/WN HEENT: normocephalic, atraumatic Respiratory/Chest: chest wall non-tender, lungs clear Breasts: no masses Cardiovascular: normal peripheral pulses, regular rhythm Abdomen: normal bowel sounds, soft, non tender Genitourinary: normal external genitalia Extremities: no cyanosis, aka Skin: extensive keratic lesions on leg Microbiology Date/Time Source Procedure Growth Status 05/21/17 18:15 Blood Blood Culture - Preliminary NO GROWTH AFTER 24 HOURS Resulted 05/21/17 18:00 Blood Blood Culture - Preliminary NO GROWTH AFTER 24 HOURS Resulted 05/22/17 05:20 Nasopharynx Influenza Types A,B Antigen (EM) - Final Complete 05/22/17 19:00 Foot Right Gram Stain - Final Resulted 05/22/17 19:00 Foot Right Wound Culture Pending Resulted Laboratory Tests 05/24/17 05:50: White Blood Count 6.5, Red Blood Count 3.94L, Hemoglobin 11.8L, Hematocrit 34.8L , Mean Corpuscular Volume 88, Mean Corpuscular Hemoglobin 29.9, Mean Corpuscular Hemoglobin Concent 34.0, Red Cell Distribution Width 12.5, Platelet Count 186, Mean Platelet Volume 8.9, Neutrophils (%) (Auto) 58.8, Lymphocytes (% ) (Auto) 24.7, Monocytes (%) (Auto) 10.0, Eosinophils (%) (Auto) 5.1H, Basophils (%) (Auto) 1.4, Erythrocyte Sedimentation Rate 52H, Sodium Level 133L , Potassium Level 3.7, Chloride Level 96L, Carbon Dioxide Level 30, Anion Gap 7 , Blood Urea Nitrogen 15, Creatinine 1.2, Estimat Glomerular Filtration Rate > 60, Glucose Level 225H, Calcium Level 8.8, Phosphorus Level 3.3, Magnesium Level 1.8, Total Bilirubin 0.4, Aspartate Amino Transf (AST/SGOT) 22, Alanine Aminotransferase (ALT/SGPT) 20, Alkaline Phosphatase 97, Total Protein 6.8, Albumin 2.5L, Globulin 4.3, Albumin/Globulin Ratio 0.6L Current Medications Medications (Trade) Dose Ordered Sig/Caden Route PRN Reason Start Time Stop Time Status Last Admin Dose Admin Acetaminophen (Tylenol) 650 mg Q4H PRN ORAL fever 05/20/17 21:45 06/19/17 21:44 05/21/17 10:25 Albuterol/ Ipratropium (Albuterol/ Ipratropium) 3 ml EVERY 4 HOURS PRN HHN Shortness of Breath 05/20/17 21:45 05/25/17 21:44 Ceftriaxone Sodium 2 gm/ Sodium Chloride 55 ml @ 110 mls/hr Q24H IVPB 05/24/17 21:00 05/31/17 20:59 Dextrose (Dextrose 50%) STAT PRN IV Hypoglycemia 05/21/17 07:30 06/20/17 07:29 Heparin Sodium (Porcine) (Heparin 5000 units/ml) 5,000 units EVERY 12 HOURS SUBQ 05/21/17 09:00 06/20/17 08:59 05/24/17 09:55 Insulin Aspart (NovoLOG) BEFORE MEALS AND HS SUBQ 3/9/18 08:30 06/20/17 08:29 05/24/17 17:02 Morphine Sulfate (Morphine Sulfate) 2 mg EVERY 4 HOURS PRN IVP Moderate Pain (Pain Scale 4-6) 05/20/17 21:45 05/27/17 21:44 Nitroglycerin (Ntg) 0.4 mg Every 5 Minutes PRN SL Prn Chest Pain 05/20/17 21:45 06/19/17 21:44 Ondansetron HCl (Zofran) 4 mg Q6H PRN IVP Nausea & Vomiting 05/20/17 21:45 06/19/17 21:44 Polyethylene Glycol (Miralax) 17 gm DAILYPRN PRN ORAL Constipation 05/20/17 21:45 06/19/17 21:44 Sodium Hypochlorite (Dakin's Quarter Strength) 1 applic DAILY TOPIC 05/23/17 09:00 06/22/17 08:59 05/24/17 09:53 Temazepam (Restoril) 15 mg HSPRN PRN ORAL Insomnia 05/20/17 21:45 05/27/17 21:44 Vancomycin HCl 1 gm/Dextrose 275 ml @ 183.708 mls/hr Q12HR@0600,1800 IVPB 05/23/17 06:00 05/28/17 05:59 05/24/17 16:58 TYESHA MARION May 24, 2017 17:59
[2017-05-24 20:00] VITALS: BP 156/84
[2017-05-24] MEDS: cefTRIAXone 2 GM in NS 55 ML IVPB SCH (23:32)
[2017-05-25] VITALS: BP 132/81
[2017-05-25 04:00] VITALS: BP 112/59
[2017-05-25] MEDS: Vancomycin 1gm in D5W 275ml IVPB SCH ×2 (06:05→17:12)
[2017-05-25] MEDS: NovoLOG Insulin Flexpen SUBQ SCH ×4 (06:06→20:14)
[2017-05-25 08:00] VITALS: BP 110/60
[2017-05-25] MEDS: Heparin 5000 units/ml inj SUBQ SCH ×2 (08:53→20:14)
[2017-05-25] MEDS: Dakin's 0.125% Soln (Quarter Strength) 16oz TOPIC SCH (08:55)
[2017-05-25 12:00] VITALS: BP 138/78
--- NOTE | 2017-05-25 13:47 | Infectious Diseases Prog Note ---
Assessment/Plan Assessment/Plan ASSESSMENT: The patient is a 66-year-old male with Right foot cellulitis. right big toe. osteo -MRI R foot: Findings suspicious for osteomyelitis of the distal aspect of the first distal phalanx -wound cx GPC (however likely will isolated colonizers as no open wound or drainage) Fever, SP Normal white blood cells Influenza screening tests : Neg Diabetes. Hyperlipidemia. Hypertension. Left BKA. History of alcohol abuse and smoking until recently. 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 PLAN: continue the patient on vancomycin and Ceftriaxone abx d# for R 1st toe OM and foot cellulitis -weekly CBC, CMP -05/24 SP Cefepime #4 Monitor CBC. Monitor BMP. Monitor Wnd cultures Monitor blood culture. . Subjective Allergies: Coded Allergies: No Known Allergies (Unverified , 11/16/14) Subjective afebrile no leukocytosis Bcx NTD wound cx GPC Objective Vital Signs Last 24 Hour Vital Signs Date Time Temp Pulse Resp B/P (MAP) Pulse Ox O2 Delivery O2 Flow Rate FiO2 05/25/17 12:00 97.8 74 18 138/78 96 97.8 05/25/17 08:20 81 18 Room Air 21 05/25/17 08:00 98.1 78 18 110/60 98 98.1 05/25/17 04:00 97.0 75 19 112/59 99 97.0 05/25/17 00:00 99.2 74 19 132/81 93 99.2 05/24/17 20:00 99.7 70 19 156/84 95 99.7 05/24/17 19:11 79 18 Room Air 21 Height (Feet): 5 Height (Inches): 7.00 Weight (Pounds): 180 Objective General Appearance: WD/WN HEENT: normocephalic, atraumatic Respiratory/Chest: chest wall non-tender, lungs clear Breasts: no masses Cardiovascular: normal peripheral pulses, regular rhythm Abdomen: normal bowel sounds, soft, non tender Genitourinary: normal external genitalia Extremities: no cyanosis, aka Skin: extensive keratic lesions on leg Microbiology Date/Time Source Procedure Growth Status 05/22/17 19:00 Foot Right Gram Stain - Final Resulted 05/22/17 19:00 Wound Culture - Preliminary Gram Positive Cocci Resulted Current Medications Medications (Trade) Dose Ordered Sig/Caden Route PRN Reason Start Time Stop Time Status Last Admin Dose Admin Acetaminophen (Tylenol) 650 mg Q4H PRN ORAL fever 05/20/17 21:45 06/19/17 21:44 05/21/17 10:25 Albuterol/ Ipratropium (Albuterol/ Ipratropium) 3 ml EVERY 4 HOURS PRN HHN Shortness of Breath 05/20/17 21:45 05/25/17 21:44 Ceftriaxone Sodium 2 gm/ Sodium Chloride 55 ml @ 110 mls/hr Q24H IVPB 05/24/17 21:00 07/01/17 20:59 05/24/17 23:32 Dextrose (Dextrose 50%) STAT PRN IV Hypoglycemia 05/21/17 07:30 06/20/17 07:29 Heparin Sodium (Porcine) (Heparin 5000 units/ml) 5,000 units EVERY 12 HOURS SUBQ 05/21/17 09:00 06/20/17 08:59 05/25/17 08:53 Insulin Aspart (NovoLOG) BEFORE MEALS AND HS SUBQ 05/21/17 08:30 06/20/17 08:29 05/25/17 11:53 Morphine Sulfate (Morphine Sulfate) 2 mg EVERY 4 HOURS PRN IVP Moderate Pain (Pain Scale 4-6) 05/20/17 21:45 05/27/17 21:44 Nitroglycerin (Ntg) 0.4 mg Every 5 Minutes PRN SL Prn Chest Pain 05/20/17 21:45 06/19/17 21:44 Ondansetron HCl (Zofran) 4 mg Q6H PRN IVP Nausea & Vomiting 05/20/17 21:45 06/19/17 21:44 Polyethylene Glycol (Miralax) 17 gm DAILYPRN PRN ORAL Constipation 05/20/17 21:45 06/19/17 21:44 Sodium Hypochlorite (Dakin's Quarter Strength) 1 applic DAILY TOPIC 05/23/17 09:00 06/22/17 08:59 05/25/17 08:55 Temazepam (Restoril) 15 mg HSPRN PRN ORAL Insomnia 05/20/17 21:45 05/27/17 21:44 Vancomycin HCl 1 gm/Dextrose 275 ml @ 183.708 mls/hr Q12HR@0600,1800 IVPB 05/23/17 06:00 07/01/17 05:59 05/25/17 06:05 Dena Frank M.D. May 25, 2017 13:47
[2017-05-25 15:58] VITALS: BP 146/78
[2017-05-25 20:00] VITALS: BP 156/81
[2017-05-25] MEDS: cefTRIAXone 2 GM in NS 55 ML IVPB SCH (20:09)
--- NOTE | 2017-05-25 21:27 | Pulmonology Progress Note ---
Assessment/Plan Problems: (1) Cellulitis of right lower extremity (2) Ulcer of heel and midfoot (3) ETOH abuse (4) HTN (hypertension) (5) Diabetes (6) Anemia (7) S/P BKA (below knee amputation) Assessment/Plan continue abx check cutlrues f/u ID recommendations dc planning to a nursign home Subjective ROS Limited/Unobtainable: No Allergies: Coded Allergies: No Known Allergies (Unverified , 11/16/14) Objective Last 24 Hour Vital Signs Date Time Temp Pulse Resp B/P (MAP) Pulse Ox O2 Delivery O2 Flow Rate FiO2 05/25/17 20:00 98.1 70 15 156/81 95 98.1 05/25/17 15:58 98.4 71 19 146/78 95 98.4 05/25/17 12:00 97.8 74 18 138/78 96 97.8 05/25/17 08:20 81 18 Room Air 21 05/25/17 08:00 98.1 78 18 110/60 98 98.1 05/25/17 04:00 97.0 75 19 112/59 99 97.0 05/25/17 00:00 99.2 74 19 132/81 93 99.2 Intake and Output 05/24/17 05/25/17 19:00 07:00 Intake Total 477 ml 55 ml Output Total 652 ml Balance 477 ml -597 ml IV Total 477 ml 55 ml Output Urine Total 652 ml Objective General Appearance: WD/WN HEENT: normocephalic, atraumatic Respiratory/Chest: chest wall non-tender, lungs clear Breasts: no masses Cardiovascular: normal peripheral pulses, regular rhythm Abdomen: normal bowel sounds, soft, non tender Genitourinary: normal external genitalia Extremities: no cyanosis, aka Skin: extensive keratic lesions on leg Current Medications Medications (Trade) Dose Ordered Sig/Caden Route PRN Reason Start Time Stop Time Status Last Admin Dose Admin Acetaminophen (Tylenol) 650 mg Q4H PRN ORAL fever 05/20/17 21:45 06/19/17 21:44 05/21/17 10:25 Albuterol/ Ipratropium (Albuterol/ Ipratropium) 3 ml EVERY 4 HOURS PRN HHN Shortness of Breath 05/20/17 21:45 05/25/17 21:44 Ceftriaxone Sodium 2 gm/ Sodium Chloride 55 ml @ 110 mls/hr Q24H IVPB 05/24/17 21:00 07/01/17 20:59 05/25/17 20:09 Dextrose (Dextrose 50%) STAT PRN IV Hypoglycemia 05/21/17 07:30 06/20/17 07:29 Heparin Sodium (Porcine) (Heparin 5000 units/ml) 5,000 units EVERY 12 HOURS SUBQ 05/21/17 09:00 06/20/17 08:59 05/25/17 20:14 Insulin Aspart (NovoLOG) BEFORE MEALS AND HS SUBQ 05/21/17 08:30 06/20/17 08:29 05/25/17 20:14 Morphine Sulfate (Morphine Sulfate) 2 mg EVERY 4 HOURS PRN IVP Moderate Pain (Pain Scale 4-6) 05/20/17 21:45 05/27/17 21:44 Nitroglycerin (Ntg) 0.4 mg Every 5 Minutes PRN SL Prn Chest Pain 05/20/17 21:45 06/19/17 21:44 Ondansetron HCl (Zofran) 4 mg Q6H PRN IVP Nausea & Vomiting 05/20/17 21:45 06/19/17 21:44 Polyethylene Glycol (Miralax) 17 gm DAILYPRN PRN ORAL Constipation 05/20/17 21:45 06/19/17 21:44 Sodium Hypochlorite (Dakin's Quarter Strength) 1 applic DAILY TOPIC 05/23/17 09:00 06/22/17 08:59 05/25/17 08:55 Temazepam (Restoril) 15 mg HSPRN PRN ORAL Insomnia 05/20/17 21:45 05/27/17 21:44 Vancomycin HCl 1 gm/Dextrose 275 ml @ 183.708 mls/hr Q12HR@0600,1800 IVPB 05/23/17 06:00 07/01/17 05:59 05/25/17 17:12 Kyra Massey MD May 25, 2017 21:27
[2017-05-26] VITALS (7 sets, daily range): BP systolic 121–165; BP diastolic 75–86
[2017-05-26] MEDS: Vancomycin 1gm in D5W 275ml IVPB SCH ×2 (06:24→17:53)
[2017-05-26] MEDS: NovoLOG Insulin Flexpen SUBQ SCH ×4 (06:30→21:07)
[2017-05-26] MEDS: Dakin's 0.125% Soln (Quarter Strength) 16oz TOPIC SCH (09:27)
[2017-05-26] MEDS: Heparin 5000 units/ml inj SUBQ SCH ×2 (09:31→21:08)
[2017-05-26] MEDS ORDERED: NS 500ML ONE (11:10)
[2017-05-26] MEDS ORDERED: D5 1/2NS 1000ml IV ONE (11:14)
[2017-05-26] MEDS ORDERED: Tubing IV Secondary IV ONE (14:48)
--- NOTE | 2017-05-26 19:25 | Pulmonology Progress Note ---
Assessment/Plan Problems: (1) Cellulitis of right lower extremity (2) Ulcer of heel and midfoot (3) ETOH abuse (4) HTN (hypertension) (5) Diabetes (6) Anemia (7) S/P BKA (below knee amputation) Assessment/Plan continue abx check cutlrues f/u ID recommendations dc planning to a nursign home awaiting medical enrollment Subjective ROS Limited/Unobtainable: No HEENT: Repors: no symptoms Respiratory: Reports: no symptoms Allergies: Coded Allergies: No Known Allergies (Unverified , 11/16/14) Objective Last 24 Hour Vital Signs Date Time Temp Pulse Resp B/P (MAP) Pulse Ox O2 Delivery O2 Flow Rate FiO2 05/26/17 19:18 76 18 Room Air 21 05/26/17 16:00 Room Air 05/26/17 16:00 98.2 75 19 144/84 97 98.2 05/26/17 12:12 98.1 76 163/86 95 Room Air 98.1 05/26/17 08:00 98.1 69 15 121/79 95 98.1 05/26/17 08:00 Room Air 05/26/17 07:28 72 18 Room Air 21 05/26/17 05:29 97.9 72 16 139/78 96 97.9 05/26/17 04:00 97.9 72 16 139/78 96 97.9 05/26/17 00:00 97.6 69 16 130/75 95 97.6 05/25/17 22:39 79 18 Room Air 21 05/25/17 20:00 98.1 70 15 156/81 95 98.1 Intake and Output 05/25/17 05/26/17 19:00 07:00 Intake Total 755 ml 55 ml Output Total 550 ml 550 ml Balance 205 ml -495 ml Intake Oral 480 ml IV Total 275 ml 55 ml Output Urine Total 550 ml 550 ml # Voids 2 Objective General Appearance: WD/WN HEENT: normocephalic, atraumatic Respiratory/Chest: chest wall non-tender, lungs clear Breasts: no masses Cardiovascular: normal peripheral pulses, regular rhythm Abdomen: normal bowel sounds, soft, non tender Genitourinary: normal external genitalia Extremities: no cyanosis, aka Skin: extensive keratic lesions on leg Current Medications Medications (Trade) Dose Ordered Sig/Caden Route PRN Reason Start Time Stop Time Status Last Admin Dose Admin Acetaminophen (Tylenol) 650 mg Q4H PRN ORAL fever 05/20/17 21:45 06/19/17 21:44 05/21/17 10:25 Ceftriaxone Sodium 2 gm/ Sodium Chloride 55 ml @ 110 mls/hr Q24H IVPB 05/24/17 21:00 07/01/17 20:59 05/25/17 20:09 Dextrose (Dextrose 50%) STAT PRN IV Hypoglycemia 05/21/17 07:30 06/20/17 07:29 Heparin Sodium (Porcine) (Heparin 5000 units/ml) 5,000 units EVERY 12 HOURS SUBQ 05/21/17 09:00 06/20/17 08:59 05/26/17 09:31 Insulin Aspart (NovoLOG) BEFORE MEALS AND HS SUBQ 05/21/17 08:30 06/20/17 08:29 05/26/17 17:08 Morphine Sulfate (Morphine Sulfate) 2 mg EVERY 4 HOURS PRN IVP Moderate Pain (Pain Scale 4-6) 05/20/17 21:45 05/27/17 21:44 Nitroglycerin (Ntg) 0.4 mg Every 5 Minutes PRN SL Prn Chest Pain 05/20/17 21:45 06/19/17 21:44 Ondansetron HCl (Zofran) 4 mg Q6H PRN IVP Nausea & Vomiting 05/20/17 21:45 06/19/17 21:44 Polyethylene Glycol (Miralax) 17 gm DAILYPRN PRN ORAL Constipation 05/20/17 21:45 06/19/17 21:44 Sodium Hypochlorite (Dakin's Quarter Strength) 1 applic DAILY TOPIC 05/23/17 09:00 06/22/17 08:59 05/26/17 09:27 Temazepam (Restoril) 15 mg HSPRN PRN ORAL Insomnia 05/20/17 21:45 05/27/17 21:44 Vancomycin HCl 1 gm/Dextrose 275 ml @ 183.708 mls/hr Q12HR@0600,1800 IVPB 05/23/17 06:00 07/01/17 05:59 05/26/17 17:53 Kyra Massey MD May 26, 2017 19:24
[2017-05-26] MEDS: cefTRIAXone 2 GM in NS 55 ML IVPB SCH (21:06)
[2017-05-27 00:42] VITALS: BP 139/67
[2017-05-27 03:40] VITALS: BP 150/79
[2017-05-27] MEDS: Vancomycin 1gm in D5W 275ml IVPB SCH ×2 (05:33→19:34)
[2017-05-27] MEDS: NovoLOG Insulin Flexpen SUBQ SCH ×4 (06:16→21:11)
[2017-05-27 08:00] VITALS: BP 120/64
[2017-05-27] MEDS: Dakin's 0.125% Soln (Quarter Strength) 16oz TOPIC SCH (10:50)
[2017-05-27] MEDS: Heparin 5000 units/ml inj SUBQ SCH ×2 (10:51→21:10)
[2017-05-27 12:00] VITALS: BP 143/80
[2017-05-27 14:20] VITALS: BP 143/80
--- NOTE | 2017-05-27 17:29 | Infectious Diseases Prog Note ---
Assessment/Plan Assessment/Plan ASSESSMENT: The patient is a 66-year-old male with Right foot cellulitis. right big toe. osteo -MRI R foot: Findings suspicious for osteomyelitis of the distal aspect of the first distal phalanx -wound cx GPC (however likely will isolated colonizers as no open wound or drainage) Fever, SP Normal white blood cells Influenza screening tests : Neg Diabetes. Hyperlipidemia. Hypertension. Left BKA. History of alcohol abuse and smoking until recently. 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 PLAN: continue the patient on vancomycin and Ceftriaxone abx d# for R 1st toe OM and foot cellulitis; upon discharge substitute IV Vancomycin to Daptomycin 6mg/ kg daily for once a day regimen. -weekly CBC, CMP, CPK -05/24 SP Cefepime #4 Monitor CBC. Monitor BMP. Monitor Wnd cultures Monitor blood culture. . Subjective Allergies: Coded Allergies: No Known Allergies (Unverified , 11/16/14) Subjective afebrile no leukocytosis Bcx NTD wound cx GPC Objective Vital Signs Last 24 Hour Vital Signs Date Time Temp Pulse Resp B/P (MAP) Pulse Ox O2 Delivery O2 Flow Rate FiO2 05/27/17 14:20 98.1 80 20 143/80 95 Room Air 98.1 05/27/17 12:00 98.1 95 20 143/80 95 Room Air 98.1 05/27/17 08:00 99.7 69 19 120/64 96 Room Air 99.7 05/27/17 04:24 Room Air 05/27/17 03:40 98.1 75 20 150/79 96 Room Air 98.1 05/27/17 00:42 98.1 80 20 139/67 100 Room Air 98.1 05/26/17 19:48 97.7 78 20 165/84 94 Room Air 97.7 05/26/17 19:18 76 18 Room Air 21 Height (Feet): 5 Height (Inches): 7.00 Weight (Pounds): 180 Objective General Appearance: WD/WN HEENT: normocephalic, atraumatic Respiratory/Chest: chest wall non-tender, lungs clear Breasts: no masses Cardiovascular: normal peripheral pulses, regular rhythm Abdomen: normal bowel sounds, soft, non tender Genitourinary: normal external genitalia Extremities: no cyanosis, aka Skin: extensive keratic lesions on leg Current Medications Medications (Trade) Dose Ordered Sig/Caden Route PRN Reason Start Time Stop Time Status Last Admin Dose Admin Acetaminophen (Tylenol) 650 mg Q4H PRN ORAL fever 05/20/17 21:45 06/19/17 21:44 05/21/17 10:25 Ceftriaxone Sodium 2 gm/ Sodium Chloride 55 ml @ 110 mls/hr Q24H IVPB 05/24/17 21:00 07/01/17 20:59 05/26/17 21:06 Dextrose (Dextrose 50%) STAT PRN IV Hypoglycemia 05/21/17 07:30 06/20/17 07:29 Heparin Sodium (Porcine) (Heparin 5000 units/ml) 5,000 units EVERY 12 HOURS SUBQ 05/21/17 09:00 06/20/17 08:59 05/27/17 10:51 Insulin Aspart (NovoLOG) BEFORE MEALS AND HS SUBQ 05/21/17 08:30 06/20/17 08:29 05/27/17 17:02 Morphine Sulfate (Morphine Sulfate) 2 mg EVERY 4 HOURS PRN IVP Moderate Pain (Pain Scale 4-6) 05/20/17 21:45 05/27/17 21:44 Nitroglycerin (Ntg) 0.4 mg Every 5 Minutes PRN SL Prn Chest Pain 05/20/17 21:45 06/19/17 21:44 Ondansetron HCl (Zofran) 4 mg Q6H PRN IVP Nausea & Vomiting 05/20/17 21:45 06/19/17 21:44 Polyethylene Glycol (Miralax) 17 gm DAILYPRN PRN ORAL Constipation 05/20/17 21:45 06/19/17 21:44 Sodium Hypochlorite (Dakin's Quarter Strength) 1 applic DAILY TOPIC 05/23/17 09:00 06/22/17 08:59 05/27/17 10:50 Temazepam (Restoril) 15 mg HSPRN PRN ORAL Insomnia 05/20/17 21:45 05/27/17 21:44 Vancomycin HCl 1 gm/Dextrose 275 ml @ 183.708 mls/hr Q12HR@0600,1800 IVPB 05/23/17 06:00 07/01/17 05:59 05/27/17 05:33 Dena Frank M.D. May 27, 2017 17:29
[2017-05-27 20:26] VITALS: BP 151/73
[2017-05-27] MEDS: cefTRIAXone 2 GM in NS 55 ML IVPB SCH (21:06)
--- NOTE | 2017-05-27 22:12 | Pulmonology Progress Note ---
Assessment/Plan Problems: (1) Cellulitis of right lower extremity (2) Ulcer of heel and midfoot (3) ETOH abuse (4) HTN (hypertension) (5) Diabetes (6) Anemia (7) S/P BKA (below knee amputation) Assessment/Plan continue abx check cutlrues f/u ID recommendations dc planning to a nursign home dc planning in am Subjective ROS Limited/Unobtainable: No Constitutional: Reports: no symptoms Allergies: Coded Allergies: No Known Allergies (Unverified , 11/16/14) Objective Last 24 Hour Vital Signs Date Time Temp Pulse Resp B/P (MAP) Pulse Ox O2 Delivery O2 Flow Rate FiO2 05/27/17 20:26 98.2 68 20 151/73 94 98.2 05/27/17 14:20 05/27/17 12:00 98.1 95 20 143/80 95 Room Air 98.1 05/27/17 08:00 99.7 69 19 120/64 96 Room Air 99.7 05/27/17 04:24 Room Air 05/27/17 03:40 98.1 75 20 150/79 96 Room Air 98.1 05/27/17 00:42 98.1 80 20 139/67 100 Room Air 98.1 Intake and Output 05/26/17 05/27/17 19:00 07:00 Intake Total 238.708 ml Output Total 1100 ml 500 ml Balance -1100 ml -261.292 ml IV Total 238.708 ml Output Urine Total 1100 ml 500 ml # Voids 6 # Bowel Movements 1 Objective General Appearance: WD/WN HEENT: normocephalic, atraumatic Respiratory/Chest: chest wall non-tender, lungs clear Breasts: no masses Cardiovascular: normal peripheral pulses, regular rhythm Abdomen: normal bowel sounds, soft, non tender Genitourinary: normal external genitalia Extremities: no cyanosis, aka Skin: extensive keratic lesions on leg Current Medications Medications (Trade) Dose Ordered Sig/Caden Route PRN Reason Start Time Stop Time Status Last Admin Dose Admin Acetaminophen (Tylenol) 650 mg Q4H PRN ORAL fever 05/20/17 21:45 06/19/17 21:44 05/21/17 10:25 Ceftriaxone Sodium 2 gm/ Sodium Chloride 55 ml @ 110 mls/hr Q24H IVPB 05/24/17 21:00 07/01/17 20:59 05/27/17 21:06 Dextrose (Dextrose 50%) STAT PRN IV Hypoglycemia 05/21/17 07:30 06/20/17 07:29 Heparin Sodium (Porcine) (Heparin 5000 units/ml) 5,000 units EVERY 12 HOURS SUBQ 05/21/17 09:00 06/20/17 08:59 05/27/17 21:10 Insulin Aspart (NovoLOG) BEFORE MEALS AND HS SUBQ 05/21/17 08:30 06/20/17 08:29 05/27/17 21:11 Nitroglycerin (Ntg) 0.4 mg Every 5 Minutes PRN SL Prn Chest Pain 05/20/17 21:45 06/19/17 21:44 Ondansetron HCl (Zofran) 4 mg Q6H PRN IVP Nausea & Vomiting 05/20/17 21:45 06/19/17 21:44 Polyethylene Glycol (Miralax) 17 gm DAILYPRN PRN ORAL Constipation 05/20/17 21:45 06/19/17 21:44 Sodium Hypochlorite (Dakin's Quarter Strength) 1 applic DAILY TOPIC 05/23/17 09:00 06/22/17 08:59 05/27/17 10:50 Vancomycin HCl 1 gm/Dextrose 275 ml @ 183.708 mls/hr Q12HR@0600,1800 IVPB 05/23/17 06:00 07/01/17 05:59 05/27/17 19:34 Kyra Massey MD May 27, 2017 22:12
[2017-05-28 04:27] VITALS: BP 111/57
[2017-05-28] MEDS: Vancomycin 1gm in D5W 275ml IVPB SCH ×2 (06:07→17:27)
[2017-05-28] MEDS: NovoLOG Insulin Flexpen SUBQ SCH ×4 (06:09→20:46)
[2017-05-28 06:45] LABS: CREATINE KINASE 35 U/L (26-308)
[2017-05-28 08:00] VITALS: BP 136/75
[2017-05-28] MEDS: Dakin's 0.125% Soln (Quarter Strength) 16oz TOPIC SCH (08:40)
[2017-05-28] MEDS: Heparin 5000 units/ml inj SUBQ SCH ×2 (08:43→20:50)
[2017-05-28 12:00] VITALS: BP 133/58
[2017-05-28 16:00] VITALS: BP 116/54
--- NOTE | 2017-05-28 16:22 | Infectious Diseases Prog Note ---
Assessment/Plan Assessment/Plan ASSESSMENT: The patient is a 66-year-old male with Right foot cellulitis. right big toe. osteo -MRI R foot: Findings suspicious for osteomyelitis of the distal aspect of the first distal phalanx -wound cx E.fecalis ([place] S), CoNS (likely represents colonizers) Fever, SP Normal white blood cells Influenza screening tests : Neg Diabetes. Hyperlipidemia. Hypertension. Left BKA. History of alcohol abuse and smoking until recently. 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 PLAN: continue the patient on vancomycin and Ceftriaxone abx d# for R 1st toe OM and foot cellulitis; upon discharge substitute IV Vancomycin to Daptomycin 6mg/ kg daily for once a day regimen. -weekly CBC, CMP, CPK -05/24 SP Cefepime #4 Monitor CBC. Monitor BMP. Monitor Wnd cultures Monitor blood culture. . Subjective Allergies: Coded Allergies: No Known Allergies (Unverified , 11/16/14) Subjective afebrile no leukocytosis Bcx NTD wound cx GPC Objective Vital Signs Last 24 Hour Vital Signs Date Time Temp Pulse Resp B/P (MAP) Pulse Ox O2 Delivery O2 Flow Rate FiO2 05/28/17 16:00 97.8 70 19 116/54 92 97.8 05/28/17 12:01 Room Air 05/28/17 12:00 98.9 73 18 133/58 93 98.9 05/28/17 08:00 97.6 85 16 136/75 97 97.6 05/28/17 08:00 Room Air 05/28/17 04:27 98.4 87 20 111/57 94 98.4 05/28/17 00:03 Room Air 05/27/17 20:26 98.2 68 20 151/73 94 98.2 Height (Feet): 5 Height (Inches): 7.00 Weight (Pounds): 180 Objective General Appearance: WD/WN HEENT: normocephalic, atraumatic Respiratory/Chest: chest wall non-tender, lungs clear Breasts: no masses Cardiovascular: normal peripheral pulses, regular rhythm Abdomen: normal bowel sounds, soft, non tender Genitourinary: normal external genitalia Extremities: no cyanosis, aka Skin: extensive keratic lesions on leg Laboratory Tests Test 05/28/17 05:10 Total Creatine Kinase 35 U/L (26-308) Current Medications Medications (Trade) Dose Ordered Sig/Caden Route PRN Reason Start Time Stop Time Status Last Admin Dose Admin Acetaminophen (Tylenol) 650 mg Q4H PRN ORAL fever 05/20/17 21:45 06/19/17 21:44 05/21/17 10:25 Ceftriaxone Sodium 2 gm/ Sodium Chloride 55 ml @ 110 mls/hr Q24H IVPB 05/24/17 21:00 07/01/17 20:59 05/27/17 21:06 Dextrose (Dextrose 50%) STAT PRN IV Hypoglycemia 05/21/17 07:30 06/20/17 07:29 Heparin Sodium (Porcine) (Heparin 5000 units/ml) 5,000 units EVERY 12 HOURS SUBQ 05/21/17 09:00 06/20/17 08:59 05/28/17 08:43 Insulin Aspart (NovoLOG) BEFORE MEALS AND HS SUBQ 05/21/17 08:30 06/20/17 08:29 05/28/17 13:07 Nitroglycerin (Ntg) 0.4 mg Every 5 Minutes PRN SL Prn Chest Pain 05/20/17 21:45 06/19/17 21:44 Ondansetron HCl (Zofran) 4 mg Q6H PRN IVP Nausea & Vomiting 05/20/17 21:45 06/19/17 21:44 Polyethylene Glycol (Miralax) 17 gm DAILYPRN PRN ORAL Constipation 05/20/17 21:45 06/19/17 21:44 Sodium Hypochlorite (Dakin's Quarter Strength) 1 applic DAILY TOPIC 05/23/17 09:00 06/22/17 08:59 05/28/17 08:40 Vancomycin HCl 1 gm/Dextrose 275 ml @ 183.708 mls/hr Q12HR@0600,1800 IVPB 05/23/17 06:00 07/01/17 05:59 05/28/17 06:07 Dena Frank M.D. May 28, 2017 16:22
--- NOTE | 2017-05-28 16:25 | Pulmonology Progress Note ---
Assessment/Plan Problems: (1) Cellulitis of right lower extremity (2) Ulcer of heel and midfoot (3) ETOH abuse (4) HTN (hypertension) (5) Diabetes (6) Anemia (7) S/P BKA (below knee amputation) Assessment/Plan continue abx check cutlrues f/u ID recommendations dc planning to a nursign home dc planning in am Subjective ROS Limited/Unobtainable: No Allergies: Coded Allergies: No Known Allergies (Unverified , 11/16/14) Objective Last 24 Hour Vital Signs Date Time Temp Pulse Resp B/P (MAP) Pulse Ox O2 Delivery O2 Flow Rate FiO2 05/28/17 16:00 97.8 70 19 116/54 92 97.8 05/28/17 12:01 Room Air 05/28/17 12:00 98.9 73 18 133/58 93 98.9 05/28/17 08:00 97.6 85 16 136/75 97 97.6 05/28/17 08:00 Room Air 05/28/17 04:27 98.4 87 20 111/57 94 98.4 05/28/17 00:03 Room Air 05/27/17 20:26 98.2 68 20 151/73 94 98.2 Intake and Output 05/27/17 05/28/17 19:00 07:00 Intake Total 331.292 ml 422.416 ml Output Total 200 ml Balance 331.292 ml 222.416 ml Intake Oral 240 ml IV Total 91.292 ml 422.416 ml Output Urine Total 200 ml # Voids 2 1 # Bowel Movements 1 1 Objective General Appearance: WD/WN HEENT: normocephalic, atraumatic Respiratory/Chest: chest wall non-tender, lungs clear Breasts: no masses Cardiovascular: normal peripheral pulses, regular rhythm Abdomen: normal bowel sounds, soft, non tender Genitourinary: normal external genitalia Extremities: no cyanosis, aka Skin: extensive keratic lesions on leg Laboratory Tests 05/28/17 05:10: Total Creatine Kinase 35 Current Medications Medications (Trade) Dose Ordered Sig/Caden Route PRN Reason Start Time Stop Time Status Last Admin Dose Admin Acetaminophen (Tylenol) 650 mg Q4H PRN ORAL fever 05/20/17 21:45 06/19/17 21:44 05/21/17 10:25 Ceftriaxone Sodium 2 gm/ Sodium Chloride 55 ml @ 110 mls/hr Q24H IVPB 05/24/17 21:00 07/01/17 20:59 05/27/17 21:06 Dextrose (Dextrose 50%) STAT PRN IV Hypoglycemia 05/21/17 07:30 06/20/17 07:29 Heparin Sodium (Porcine) (Heparin 5000 units/ml) 5,000 units EVERY 12 HOURS SUBQ 05/21/17 09:00 06/20/17 08:59 05/28/17 08:43 Insulin Aspart (NovoLOG) BEFORE MEALS AND HS SUBQ 05/21/17 08:30 06/20/17 08:29 05/28/17 13:07 Nitroglycerin (Ntg) 0.4 mg Every 5 Minutes PRN SL Prn Chest Pain 05/20/17 21:45 06/19/17 21:44 Ondansetron HCl (Zofran) 4 mg Q6H PRN IVP Nausea & Vomiting 05/20/17 21:45 06/19/17 21:44 Polyethylene Glycol (Miralax) 17 gm DAILYPRN PRN ORAL Constipation 05/20/17 21:45 06/19/17 21:44 Sodium Hypochlorite (Dakin's Quarter Strength) 1 applic DAILY TOPIC 05/23/17 09:00 06/22/17 08:59 05/28/17 08:40 Vancomycin HCl 1 gm/Dextrose 275 ml @ 183.708 mls/hr Q12HR@0600,1800 IVPB 05/23/17 06:00 07/01/17 05:59 05/28/17 06:07 Kyra Massey MD May 28, 2017 16:25
[2017-05-28 20:00] VITALS: BP 164/86
[2017-05-28] MEDS: cefTRIAXone 2 GM in NS 55 ML IVPB SCH (20:41)
[2017-05-29] VITALS: BP 159/84
[2017-05-29 04:43] VITALS: BP 154/78
[2017-05-29] MEDS: Vancomycin 1gm in D5W 275ml IVPB SCH (06:00)
[2017-05-29] MEDS: NovoLOG Insulin Flexpen SUBQ SCH ×4 (06:06→20:59)
[2017-05-29 08:00] VITALS: BP 110/64
[2017-05-29] MEDS: Heparin 5000 units/ml inj SUBQ SCH ×2 (09:37→21:00)
[2017-05-29] MEDS: Dakin's 0.125% Soln (Quarter Strength) 16oz TOPIC SCH (09:38)
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
[2017-05-29 12:00] VITALS: BP 155/77
[2017-05-29] MEDS ORDERED: Tubing IV Secondary IV ONE ×2 (14:10→14:16)
[2017-05-29] MEDS ORDERED: NS 500ML ONE (14:16)
[2017-05-29 15:50] VITALS: BP 149/83
--- NOTE | 2017-05-29 17:19 | Pulmonology Progress Note ---
Assessment/Plan Problems: (1) Cellulitis of right lower extremity (2) Ulcer of heel and midfoot (3) ETOH abuse (4) HTN (hypertension) (5) Diabetes (6) Anemia (7) S/P BKA (below knee amputation) Assessment/Plan continue abx check cutlrues f/u ID recommendations dc planning to a nursign home \ Subjective ROS Limited/Unobtainable: No Allergies: Coded Allergies: No Known Allergies (Unverified , 11/16/14) Objective Last 24 Hour Vital Signs Date Time Temp Pulse Resp B/P (MAP) Pulse Ox O2 Delivery O2 Flow Rate FiO2 05/29/17 15:50 99.5 67 20 149/83 97 99.5 05/29/17 12:00 99.3 69 19 155/77 98 99.3 05/29/17 08:00 98.1 75 19 110/64 96 98.1 05/29/17 04:43 97.9 66 19 154/78 95 Room Air 97.9 05/29/17 00:00 98.0 72 16 159/84 97 98.0 05/28/17 20:00 98.1 70 16 164/86 96 98.1 Intake and Output 05/28/17 05/29/17 19:00 07:00 Intake Total 955.000 ml 55 ml Output Total 900 ml 300 ml Balance 55.000 ml -245 ml Intake Oral 680 ml IV Total 275.000 ml 55 ml Output Urine Total 900 ml 300 ml Objective General Appearance: WD/WN HEENT: normocephalic, atraumatic Respiratory/Chest: chest wall non-tender, lungs clear Breasts: no masses Cardiovascular: normal peripheral pulses, regular rhythm Abdomen: normal bowel sounds, soft, non tender Genitourinary: normal external genitalia Extremities: no cyanosis, aka Skin: extensive keratic lesions on leg Laboratory Tests 05/29/17 16:30: Vancomycin Level Trough [Pending] Current Medications Medications (Trade) Dose Ordered Sig/Caden Route PRN Reason Start Time Stop Time Status Last Admin Dose Admin Acetaminophen (Tylenol) 650 mg Q4H PRN ORAL fever 05/20/17 21:45 06/19/17 21:44 05/21/17 10:25 Ceftriaxone Sodium 2 gm/ Sodium Chloride 55 ml @ 110 mls/hr Q24H IVPB 05/24/17 21:00 07/01/17 20:59 05/28/17 20:41 Dextrose (Dextrose 50%) STAT PRN IV Hypoglycemia 05/21/17 07:30 06/20/17 07:29 Heparin Sodium (Porcine) (Heparin 5000 units/ml) 5,000 units EVERY 12 HOURS SUBQ 05/21/17 09:00 06/20/17 08:59 05/29/17 09:37 Insulin Aspart (NovoLOG) BEFORE MEALS AND HS SUBQ 05/21/17 08:30 06/20/17 08:29 05/29/17 16:32 Nitroglycerin (Ntg) 0.4 mg Every 5 Minutes PRN SL Prn Chest Pain 05/20/17 21:45 06/19/17 21:44 Ondansetron HCl (Zofran) 4 mg Q6H PRN IVP Nausea & Vomiting 05/20/17 21:45 06/19/17 21:44 Polyethylene Glycol (Miralax) 17 gm DAILYPRN PRN ORAL Constipation 05/20/17 21:45 06/19/17 21:44 Sodium Hypochlorite (Dakin's Quarter Strength) 1 applic DAILY TOPIC 05/23/17 09:00 06/22/17 08:59 05/29/17 09:38 Vancomycin HCl (Vanco rx to dose) 1 ea DAILYPRN PRN MISC RX TO DOSE PROTOCOL 05/28/17 17:15 06/27/17 17:14 Vancomycin HCl 1 gm/Dextrose 275 ml @ 183.708 mls/hr Q12HR@0600,1800 IVPB 05/23/17 06:00 07/01/17 05:59 05/29/17 06:00 Kyra Massey MD May 29, 2017 17:19
[2017-05-29] MEDS: Vancomycin 750mg/NS 250ml IVPB SCH (18:25)
--- NOTE | 2017-05-29 20:09 | Infectious Diseases Prog Note ---
Subjective Allergies: Coded Allergies: No Known Allergies (Unverified , 11/16/14) Objective Vital Signs Last 24 Hour Vital Signs Date Time Temp Pulse Resp B/P (MAP) Pulse Ox O2 Delivery O2 Flow Rate FiO2 05/29/17 15:50 99.5 67 20 149/83 97 99.5 05/29/17 12:00 99.3 69 19 155/77 98 99.3 05/29/17 08:00 98.1 75 19 110/64 96 98.1 05/29/17 04:43 97.9 66 19 154/78 95 Room Air 97.9 05/29/17 00:00 98.0 72 16 159/84 97 98.0 Height (Feet): 5 Height (Inches): 7.00 Weight (Pounds): 180 HEENT: mucous membranes moist Respiratory/Chest: no accessory muscle use Cardiovascular: regularly irregular Abdomen: non distended Laboratory Tests Test 05/29/17 16:30 Vancomycin Level Trough 19.4 ug/mL (5.0-12.0) H Current Medications Medications (Trade) Dose Ordered Sig/Caden Route PRN Reason Start Time Stop Time Status Last Admin Dose Admin Acetaminophen (Tylenol) 650 mg Q4H PRN ORAL fever 05/20/17 21:45 06/19/17 21:44 05/21/17 10:25 Ceftriaxone Sodium 2 gm/ Sodium Chloride 55 ml @ 110 mls/hr Q24H IVPB 05/24/17 21:00 07/01/17 20:59 05/28/17 20:41 Dextrose (Dextrose 50%) STAT PRN IV Hypoglycemia 05/21/17 07:30 06/20/17 07:29 Heparin Sodium (Porcine) (Heparin 5000 units/ml) 5,000 units EVERY 12 HOURS SUBQ 05/21/17 09:00 06/20/17 08:59 05/29/17 09:37 Insulin Aspart (NovoLOG) BEFORE MEALS AND HS SUBQ 05/21/17 08:30 06/20/17 08:29 05/29/17 16:32 Nitroglycerin (Ntg) 0.4 mg Every 5 Minutes PRN SL Prn Chest Pain 05/20/17 21:45 06/19/17 21:44 Ondansetron HCl (Zofran) 4 mg Q6H PRN IVP Nausea & Vomiting 05/20/17 21:45 06/19/17 21:44 Polyethylene Glycol (Miralax) 17 gm DAILYPRN PRN ORAL Constipation 05/20/17 21:45 06/19/17 21:44 Sodium Hypochlorite (Dakin's Quarter Strength) 1 applic DAILY TOPIC 05/23/17 09:00 06/22/17 08:59 05/29/17 09:38 Vancomycin HCl (Vanco rx to dose) 1 ea DAILYPRN PRN MISC RX TO DOSE PROTOCOL 05/28/17 17:15 06/27/17 17:14 Vancomycin/Sodium Chloride 250 ml @ 166.667 mls/hr Q12HR@0600,1800 IVPB 05/29/17 18:00 06/03/17 17:59 05/29/17 18:25 FELISA BAIRES M.D. May 29, 2017 20:09
--- NOTE | 2017-05-29 20:33 | Infectious Diseases Prog Note ---
Assessment/Plan Assessment/Plan ASSESSMENT: The patient is a 66-year-old male with Right foot cellulitis. right big toe. osteo -MRI R foot: Findings suspicious for osteomyelitis of the distal aspect of the first distal phalanx -wound cx E.fecalis ([place] S), CoNS (likely represents colonizers) Fever, SP Normal white blood cells Influenza screening tests : Neg Diabetes. Hyperlipidemia. Hypertension. Left BKA. History of alcohol abuse and smoking until recently. 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 PLAN: continue the patient on vancomycin and Ceftriaxone abx d# for R 1st toe OM and foot cellulitis; upon discharge substitute IV Vancomycin to Daptomycin 6mg/ kg daily for once a day regimen. cont pt on oral Flagyl d# 1 for the duration of osteo treatment ( Osteo on the setting of probable vasc insuff : smoker and DM, ) -weekly CBC, CMP, CPK -05/24 SP Cefepime #4 Monitor CBC. Monitor BMP. Monitor Wnd cultures Monitor blood culture. Subjective Allergies: Coded Allergies: No Known Allergies (Unverified , 11/16/14) Subjective comfortable Objective Vital Signs Last 24 Hour Vital Signs Date Time Temp Pulse Resp B/P (MAP) Pulse Ox O2 Delivery O2 Flow Rate FiO2 05/29/17 15:50 99.5 67 20 149/83 97 99.5 05/29/17 12:00 99.3 69 19 155/77 98 99.3 05/29/17 08:00 98.1 75 19 110/64 96 98.1 05/29/17 04:43 97.9 66 19 154/78 95 Room Air 97.9 05/29/17 00:00 98.0 72 16 159/84 97 98.0 Height (Feet): 5 Height (Inches): 7.00 Weight (Pounds): 180 HEENT: anicteric Respiratory/Chest: no accessory muscle use Cardiovascular: regularly irregular Abdomen: no mass Laboratory Tests Test 05/29/17 16:30 Vancomycin Level Trough 19.4 ug/mL (5.0-12.0) H Current Medications Medications (Trade) Dose Ordered Sig/Caden Route PRN Reason Start Time Stop Time Status Last Admin Dose Admin Acetaminophen (Tylenol) 650 mg Q4H PRN ORAL fever 05/20/17 21:45 06/19/17 21:44 05/21/17 10:25 Ceftriaxone Sodium 2 gm/ Sodium Chloride 55 ml @ 110 mls/hr Q24H IVPB 05/24/17 21:00 07/01/17 20:59 05/28/17 20:41 Dextrose (Dextrose 50%) STAT PRN IV Hypoglycemia 05/21/17 07:30 06/20/17 07:29 Heparin Sodium (Porcine) (Heparin 5000 units/ml) 5,000 units EVERY 12 HOURS SUBQ 05/21/17 09:00 06/20/17 08:59 05/29/17 09:37 Insulin Aspart (NovoLOG) BEFORE MEALS AND HS SUBQ 05/21/17 08:30 06/20/17 08:29 05/29/17 16:32 Nitroglycerin (Ntg) 0.4 mg Every 5 Minutes PRN SL Prn Chest Pain 05/20/17 21:45 06/19/17 21:44 Ondansetron HCl (Zofran) 4 mg Q6H PRN IVP Nausea & Vomiting 05/20/17 21:45 06/19/17 21:44 Polyethylene Glycol (Miralax) 17 gm DAILYPRN PRN ORAL Constipation 05/20/17 21:45 06/19/17 21:44 Sodium Hypochlorite (Dakin's Quarter Strength) 1 applic DAILY TOPIC 05/23/17 09:00 06/22/17 08:59 05/29/17 09:38 Vancomycin HCl (Vanco rx to dose) 1 ea DAILYPRN PRN MISC RX TO DOSE PROTOCOL 05/28/17 17:15 06/27/17 17:14 Vancomycin/Sodium Chloride 250 ml @ 166.667 mls/hr Q12HR@0600,1800 IVPB 05/29/17 18:00 06/03/17 17:59 05/29/17 18:25 FELISA BAIRES M.D. May 29, 2017 20:33
[2017-05-29 21:00] VITALS: BP 156/88
[2017-05-29] MEDS: cefTRIAXone 2 GM in NS 55 ML IVPB SCH (21:01)
[2017-05-29] MEDS: metroNIDAZOLE 500mg tab ORAL SCH (23:59)
[2017-05-30] VITALS (8 sets, daily range): BP systolic 110–175; BP diastolic 58–89
[2017-05-30] MEDS: Vancomycin 750mg/NS 250ml IVPB SCH ×2 (06:17→17:00)
[2017-05-30] MEDS: metroNIDAZOLE 500mg tab ORAL SCH ×3 (06:18→17:00)
[2017-05-30] MEDS: NovoLOG Insulin Flexpen SUBQ SCH ×4 (06:25→21:22)
[2017-05-30] MEDS: Dakin's 0.125% Soln (Quarter Strength) 16oz TOPIC SCH (08:12)
[2017-05-30] MEDS: Heparin 5000 units/ml inj SUBQ SCH ×2 (08:14→21:22)
[2017-05-30] MEDS: cefTRIAXone 2 GM in NS 55 ML IVPB SCH (21:21)
--- NOTE | 2017-05-30 22:19 | Pulmonology Progress Note ---
Assessment/Plan Problems: (1) Cellulitis of right lower extremity (2) Ulcer of heel and midfoot (3) ETOH abuse (4) HTN (hypertension) (5) Diabetes (6) Anemia (7) S/P BKA (below knee amputation) Assessment/Plan continue abx check cutlrues f/u ID recommendations dc planning to a nursign home \ Subjective ROS Limited/Unobtainable: No Allergies: Coded Allergies: No Known Allergies (Unverified , 11/16/14) Objective Last 24 Hour Vital Signs Date Time Temp Pulse Resp B/P (MAP) Pulse Ox O2 Delivery O2 Flow Rate FiO2 05/30/17 20:00 97.6 70 17 152/82 94 97.6 05/30/17 17:55 110/58 05/30/17 16:00 98.6 65 20 175/89 95 98.6 05/30/17 12:00 98.4 68 19 150/79 94 98.4 05/30/17 08:00 99.0 70 19 116/60 98 99.0 05/30/17 06:30 155/87 05/30/17 04:00 98.1 96 16 162/80 98 98.1 05/30/17 00:00 97.3 68 19 140/78 96 Room Air 97.3 Intake and Output 05/29/17 05/30/17 19:00 07:00 Intake Total 480 ml 455 ml Output Total 1300 ml 300 ml Balance -820 ml 155 ml Intake Oral 480 ml 400 ml IV Total 55 ml Output Urine Total 1300 ml 300 ml # Bowel Movements 2 Objective General Appearance: WD/WN HEENT: normocephalic, atraumatic Respiratory/Chest: chest wall non-tender, lungs clear Breasts: no masses Cardiovascular: normal peripheral pulses, regular rhythm Abdomen: normal bowel sounds, soft, non tender Genitourinary: normal external genitalia Extremities: no cyanosis, aka Skin: extensive keratic lesions on leg Current Medications Medications (Trade) Dose Ordered Sig/Caden Route PRN Reason Start Time Stop Time Status Last Admin Dose Admin Acetaminophen (Tylenol) 650 mg Q4H PRN ORAL fever 05/20/17 21:45 06/19/17 21:44 05/21/17 10:25 Ceftriaxone Sodium 2 gm/ Sodium Chloride 55 ml @ 110 mls/hr Q24H IVPB 05/24/17 21:00 07/01/17 20:59 05/30/17 21:21 Dextrose (Dextrose 50%) STAT PRN IV Hypoglycemia 05/21/17 07:30 06/20/17 07:29 Heparin Sodium (Porcine) (Heparin 5000 units/ml) 5,000 units EVERY 12 HOURS SUBQ 05/21/17 09:00 06/20/17 08:59 05/30/17 21:22 Insulin Aspart (NovoLOG) BEFORE MEALS AND HS SUBQ 05/21/17 08:30 06/20/17 08:29 05/30/17 21:22 Metronidazole (Flagyl) 500 mg Q6HR ORAL 05/30/17 00:00 06/06/17 00:00 05/30/17 17:00 Nitroglycerin (Ntg) 0.4 mg Every 5 Minutes PRN SL Prn Chest Pain 05/20/17 21:45 06/19/17 21:44 Ondansetron HCl (Zofran) 4 mg Q6H PRN IVP Nausea & Vomiting 05/20/17 21:45 06/19/17 21:44 Polyethylene Glycol (Miralax) 17 gm DAILYPRN PRN ORAL Constipation 05/20/17 21:45 06/19/17 21:44 Sodium Hypochlorite (Dakin's Quarter Strength) 1 applic DAILY TOPIC 05/23/17 09:00 06/22/17 08:59 05/30/17 08:12 Vancomycin HCl (Vanco rx to dose) 1 ea DAILYPRN PRN MISC RX TO DOSE PROTOCOL 05/28/17 17:15 06/27/17 17:14 Vancomycin/Sodium Chloride 250 ml @ 166.667 mls/hr Q12HR@0600,1800 IVPB 05/29/17 18:00 06/03/17 17:59 05/30/17 17:00 Kyra Massey MD May 30, 2017 22:18
[2017-05-31] MEDS: metroNIDAZOLE 500mg tab ORAL SCH ×5 (01:09→23:46)
[2017-05-31 04:00] VITALS: BP 150/79
[2017-05-31] MEDS: Vancomycin 750mg/NS 250ml IVPB SCH ×2 (06:11→17:00)
[2017-05-31] MEDS: NovoLOG Insulin Flexpen SUBQ SCH ×4 (06:22→20:40)
[2017-05-31 07:53] LABS: BASOPHILS % (AUTO) 1.2 % (0.0-2.0); EOSINOPHILS % (AUTO) 4.4 % (0.0-3.0); HEMATOCRIT 38.4 % (42.0-52.0); HEMOGLOBIN 12.6 G/DL (14.2-18.0); LYMPHOCYTES % (AUTO) 24.3 % (20.0-45.0); MEAN CORPUSCULAR VOLUME 87 FL (80-99); NEUTROPHILS % (AUTO) 61.2 % (45.0-75.0); PLATELET COUNT 242 K/UL (150-450); RED BLOOD COUNT 4.43 M/UL (4.70-6.10); RED CELL DISTRIBUTION WIDTH 12.3 % (11.6-14.8); WHITE BLOOD COUNT 7.2 K/UL (4.8-10.8)
[2017-05-31 08:00] VITALS: BP 135/73
[2017-05-31 08:15] LABS: ALANINE AMINOTRANSFERASE 15 U/L (12-78); ALBUMIN 2.6 G/DL (3.4-5.0); ALBUMIN/GLOBULIN RATIO 0.6 (1.0-2.7); ALKALINE PHOSPHATASE 91 U/L (46-116); ANION GAP 8 mmol/L (5-15); ASPARTATE AMINO TRANSFERASE 14 U/L (15-37); BILIRUBIN,TOTAL 0.1 MG/DL (0.2-1.0); BLOOD UREA NITROGEN 16 mg/dL (7-18); CALCIUM 8.7 MG/DL (8.5-10.1); CARBON DIOXIDE 28 MMOL/L (21-32); CHLORIDE 102 MMOL/L (98-107); CREATININE 1.2 MG/DL (0.55-1.30); POTASSIUM 3.4 MMOL/L (3.5-5.1); SODIUM 138 MMOL/L (136-145)
[2017-05-31] MEDS: Heparin 5000 units/ml inj SUBQ SCH ×2 (09:21→20:41)
[2017-05-31] MEDS: Dakin's 0.125% Soln (Quarter Strength) 16oz TOPIC SCH (09:22)
--- NOTE | 2017-05-31 11:55 | Diagnostic Imaging Report ---
Indication: Dyspnea Technique: One view of the chest Comparison: 10/25/2016 Findings: Lungs and pleural spaces are clear. Heart size is normal. Bilateral healed rib fracture deformities are again demonstrated. No significant interim change. Impression: No acute process
[2017-05-31 12:00] VITALS: BP 163/90
[2017-05-31 15:57] VITALS: BP 165/95
[2017-05-31 17:41] VITALS: BP 159/88
--- NOTE | 2017-05-31 18:57 | Infectious Diseases Prog Note ---
Assessment/Plan Assessment/Plan The patient is a 66-year-old male with Right foot cellulitis. right big toe. osteo -MRI R foot: Findings suspicious for osteomyelitis of the distal aspect of the first distal phalanx -wound cx E.fecalis ([place] S), CoNS (likely represents colonizers) Fever, SP Normal white blood cells Influenza screening tests : Neg Diabetes. Hyperlipidemia. Hypertension. Left BKA. History of alcohol abuse and smoking until recently. 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 PLAN: continue the patient on vancomycin and Ceftriaxone abx d# 11 for R 1st toe OM and foot cellulitis; upon discharge substitute IV Vancomycin to Daptomycin 6mg/kg daily for once a day regimen. cont pt on oral Flagyl d# 3 ( Osteo on the setting of probable vasc insuff : smoker and DM, ) -if patient doesn't require other nursing needs for SNF , abx can be switch to PO (Bactrim DS 2 tab bid and Augmentin 975/125mg BID) -weekly CBC, CMP, CPK -05/24 SP Cefepime #4 Monitor CBC. Monitor BMP. Monitor Wnd cultures Monitor blood culture. Subjective Allergies: Coded Allergies: No Known Allergies (Unverified , 11/16/14) Subjective afebrile no leukocytosis bcx neg Objective Vital Signs Last 24 Hour Vital Signs Date Time Temp Pulse Resp B/P (MAP) Pulse Ox O2 Delivery O2 Flow Rate FiO2 05/31/17 17:41 159/88 05/31/17 16:59 165/95 05/31/17 15:57 97.5 67 18 165/95 98 97.5 05/31/17 12:00 98.2 68 18 163/90 95 98.2 05/31/17 08:00 97.6 64 18 135/73 98 97.6 05/31/17 04:00 98.2 77 21 150/79 95 Room Air 98.2 05/31/17 00:00 Room Air 05/30/17 20:00 97.6 70 17 152/82 94 97.6 05/30/17 20:00 Room Air Height (Feet): 5 Height (Inches): 7.00 Weight (Pounds): 180 Objective General Appearance: WD/WN HEENT: normocephalic, atraumatic Respiratory/Chest: chest wall non-tender, lungs clear Breasts: no masses Cardiovascular: normal peripheral pulses, regular rhythm Abdomen: normal bowel sounds, soft, non tender Genitourinary: normal external genitalia Extremities: no cyanosis, aka Skin: extensive keratic lesions on leg Laboratory Tests Test 05/31/17 05:45 White Blood Count 7.2 K/UL (4.8-10.8) Red Blood Count 4.43 M/UL (4.70-6.10) L Hemoglobin 12.6 G/DL (14.2-18.0) L Hematocrit 38.4 % (42.0-52.0) L Mean Corpuscular Volume 87 FL (80-99) Mean Corpuscular Hemoglobin 28.5 PG (27.0-31.0) Mean Corpuscular Hemoglobin Concent 32.8 G/DL (32.0-36.0) Red Cell Distribution Width 12.3 % (11.6-14.8) Platelet Count 242 K/UL (150-450) Mean Platelet Volume 9.6 FL (6.5-10.1) Neutrophils (%) (Auto) 61.2 % (45.0-75.0) Lymphocytes (%) (Auto) 24.3 % (20.0-45.0) Monocytes (%) (Auto) 9.0 % (1.0-10.0) Eosinophils (%) (Auto) 4.4 % (0.0-3.0) H Basophils (%) (Auto) 1.2 % (0.0-2.0) Sodium Level 138 MMOL/L (136-145) Potassium Level 3.4 MMOL/L (3.5-5.1) L Chloride Level 102 MMOL/L (98-107) Carbon Dioxide Level 28 MMOL/L (21-32) Anion Gap 8 mmol/L (5-15) Blood Urea Nitrogen 16 mg/dL (7-18) Creatinine 1.2 MG/DL (0.55-1.30) Estimat Glomerular Filtration Rate > 60 mL/min (>60) Glucose Level 266 MG/DL (74-106) H Calcium Level 8.7 MG/DL (8.5-10.1) Total Bilirubin 0.1 MG/DL (0.2-1.0) L Aspartate Amino Transf (AST/SGOT) 14 U/L (15-37) L Alanine Aminotransferase (ALT/SGPT) 15 U/L (12-78) Alkaline Phosphatase 91 U/L (46-116) Pro-B-Type Natriuretic Peptide 964 pg/mL (0-125) H Total Protein 7.2 G/DL (6.4-8.2) Albumin 2.6 G/DL (3.4-5.0) L Globulin 4.6 g/dL Albumin/Globulin Ratio 0.6 (1.0-2.7) L Current Medications Medications (Trade) Dose Ordered Sig/Caden Route PRN Reason Start Time Stop Time Status Last Admin Dose Admin Acetaminophen (Tylenol) 650 mg Q4H PRN ORAL fever 05/20/17 21:45 06/19/17 21:44 05/21/17 10:25 Ceftriaxone Sodium 2 gm/ Sodium Chloride 55 ml @ 110 mls/hr Q24H IVPB 05/24/17 21:00 07/01/17 20:59 05/30/17 21:21 Clonidine HCl (Catapres Tab) 0.1 mg EVERY 6 HOURS PRN ORAL SBP >160mmHg 05/31/17 17:00 06/30/17 16:59 05/31/17 16:59 Dextrose (Dextrose 50%) STAT PRN IV Hypoglycemia 05/21/17 07:30 06/20/17 07:29 Heparin Sodium (Porcine) (Heparin 5000 units/ml) 5,000 units EVERY 12 HOURS SUBQ 05/21/17 09:00 06/20/17 08:59 05/31/17 09:21 Insulin Aspart (NovoLOG) BEFORE MEALS AND HS SUBQ 05/21/17 08:30 06/20/17 08:29 05/31/17 17:02 Metronidazole (Flagyl) 500 mg Q6HR ORAL 05/30/17 00:00 06/06/17 00:00 05/31/17 17:00 Nitroglycerin (Ntg) 0.4 mg Every 5 Minutes PRN SL Prn Chest Pain 05/20/17 21:45 06/19/17 21:44 Ondansetron HCl (Zofran) 4 mg Q6H PRN IVP Nausea & Vomiting 05/20/17 21:45 06/19/17 21:44 Polyethylene Glycol (Miralax) 17 gm DAILYPRN PRN ORAL Constipation 05/20/17 21:45 4/7/18 21:44 Sodium Hypochlorite (Dakin's Quarter Strength) 1 applic DAILY TOPIC 05/23/17 09:00 06/22/17 08:59 05/31/17 09:22 Vancomycin HCl (Vanco rx to dose) 1 ea DAILYPRN PRN MISC RX TO DOSE PROTOCOL 05/28/17 17:15 06/27/17 17:14 Vancomycin/Sodium Chloride 250 ml @ 166.667 mls/hr Q12HR@0600,1800 IVPB 05/29/17 18:00 06/03/17 17:59 05/31/17 17:00 Dena Frank M.D. May 31, 2017 18:57
[2017-05-31 20:23] VITALS: BP 165/85
[2017-05-31] MEDS: cefTRIAXone 2 GM in NS 55 ML IVPB SCH (20:35)
--- NOTE | 2017-05-31 22:33 | Pulmonology Progress Note ---
Assessment/Plan Problems: (1) Cellulitis of right lower extremity (2) Ulcer of heel and midfoot (3) ETOH abuse (4) HTN (hypertension) (5) Diabetes (6) Anemia (7) S/P BKA (below knee amputation) Assessment/Plan continue abx check cutlrues f/u ID recommendations dc planning to a nursign home \ Subjective ROS Limited/Unobtainable: No Constitutional: Reports: no symptoms HEENT: Repors: no symptoms Respiratory: Reports: no symptoms Allergies: Coded Allergies: No Known Allergies (Unverified , 11/16/14) Objective Last 24 Hour Vital Signs Date Time Temp Pulse Resp B/P (MAP) Pulse Ox O2 Delivery O2 Flow Rate FiO2 05/31/17 20:23 97.7 63 20 165/85 96 Room Air 97.7 05/31/17 17:41 159/88 05/31/17 16:59 165/95 05/31/17 15:57 97.5 67 18 165/95 98 97.5 05/31/17 12:00 98.2 68 18 163/90 95 98.2 05/31/17 08:00 97.6 64 18 135/73 98 97.6 05/31/17 04:00 98.2 77 21 150/79 95 Room Air 98.2 05/31/17 00:00 Room Air Intake and Output 05/30/17 05/31/17 19:00 07:00 Intake Total 730 ml 55 ml Output Total 800 ml Balance -70 ml 55 ml Intake Oral 480 ml IV Total 250 ml 55 ml Output Urine Total 800 ml # Voids 2 3 # Bowel Movements 1 Objective General Appearance: WD/WN HEENT: normocephalic, atraumatic Respiratory/Chest: chest wall non-tender, lungs clear Breasts: no masses Cardiovascular: normal peripheral pulses, regular rhythm Abdomen: normal bowel sounds, soft, non tender Genitourinary: normal external genitalia Extremities: no cyanosis, aka Skin: extensive keratic lesions on leg Laboratory Tests 05/31/17 05:45: White Blood Count 7.2, Red Blood Count 4.43L, Hemoglobin 12.6L, Hematocrit 38.4L , Mean Corpuscular Volume 87, Mean Corpuscular Hemoglobin 28.5, Mean Corpuscular Hemoglobin Concent 32.8, Red Cell Distribution Width 12.3, Platelet Count 242, Mean Platelet Volume 9.6, Neutrophils (%) (Auto) 61.2, Lymphocytes (% ) (Auto) 24.3, Monocytes (%) (Auto) 9.0, Eosinophils (%) (Auto) 4.4H, Basophils (%) (Auto) 1.2, Sodium Level 138, Potassium Level 3.4L, Chloride Level 102, Carbon Dioxide Level 28, Anion Gap 8, Blood Urea Nitrogen 16, Creatinine 1.2, Estimat Glomerular Filtration Rate > 60, Glucose Level 266H, Calcium Level 8.7, Total Bilirubin 0.1L, Aspartate Amino Transf (AST/SGOT) 14L, Alanine Aminotransferase (ALT/SGPT) 15, Alkaline Phosphatase 91, Pro-B-Type Natriuretic Peptide 964H, Total Protein 7.2, Albumin 2.6L, Globulin 4.6, Albumin/Globulin Ratio 0.6L Current Medications Medications (Trade) Dose Ordered Sig/Caden Route PRN Reason Start Time Stop Time Status Last Admin Dose Admin Acetaminophen (Tylenol) 650 mg Q4H PRN ORAL fever 05/20/17 21:45 06/19/17 21:44 05/21/17 10:25 Ceftriaxone Sodium 2 gm/ Sodium Chloride 55 ml @ 110 mls/hr Q24H IVPB 05/24/17 21:00 07/01/17 20:59 05/31/17 20:35 Clonidine HCl (Catapres Tab) 0.1 mg EVERY 6 HOURS PRN ORAL SBP >160mmHg 05/31/17 17:00 06/30/17 16:59 05/31/17 16:59 Dextrose (Dextrose 50%) STAT PRN IV Hypoglycemia 05/21/17 07:30 06/20/17 07:29 Heparin Sodium (Porcine) (Heparin 5000 units/ml) 5,000 units EVERY 12 HOURS SUBQ 05/21/17 09:00 06/20/17 08:59 05/31/17 20:41 Insulin Aspart (NovoLOG) BEFORE MEALS AND HS SUBQ 05/21/17 08:30 06/20/17 08:29 05/31/17 20:40 Metronidazole (Flagyl) 500 mg Q6HR ORAL 05/30/17 00:00 06/06/17 00:00 05/31/17 17:00 Nitroglycerin (Ntg) 0.4 mg Every 5 Minutes PRN SL Prn Chest Pain 05/20/17 21:45 06/19/17 21:44 Ondansetron HCl (Zofran) 4 mg Q6H PRN IVP Nausea & Vomiting 05/20/17 21:45 06/19/17 21:44 Polyethylene Glycol (Miralax) 17 gm DAILYPRN PRN ORAL Constipation 05/20/17 21:45 06/19/17 21:44 Sodium Hypochlorite (Dakin's Quarter Strength) 1 applic DAILY TOPIC 05/23/17 09:00 06/22/17 08:59 05/31/17 09:22 Vancomycin HCl (Vanco rx to dose) 1 ea DAILYPRN PRN MISC RX TO DOSE PROTOCOL 05/28/17 17:15 06/27/17 17:14 Vancomycin/Sodium Chloride 250 ml @ 166.667 mls/hr Q12HR@0600,1800 IVPB 05/29/17 18:00 06/03/17 17:59 05/31/17 17:00 Kyra Massey MD May 31, 2017 22:33
[2017-06-01 00:28] VITALS: BP 148/77
[2017-06-01 04:51] VITALS: BP 147/80
[2017-06-01] MEDS: metroNIDAZOLE 500mg tab ORAL SCH ×4 (06:11→23:55)
[2017-06-01] MEDS: Vancomycin 750mg/NS 250ml IVPB SCH ×2 (06:12→17:27)
[2017-06-01] MEDS: NovoLOG Insulin Flexpen SUBQ SCH ×4 (06:18→20:37)
[2017-06-01 08:00] VITALS: BP 152/76
[2017-06-01] MEDS: Dakin's 0.125% Soln (Quarter Strength) 16oz TOPIC SCH (09:21)
[2017-06-01] MEDS: Heparin 5000 units/ml inj SUBQ SCH ×2 (09:26→20:36)
[2017-06-01 12:00] VITALS: BP 144/79
[2017-06-01 15:52] VITALS: BP 156/86
--- NOTE | 2017-06-01 19:33 | Pulmonology Progress Note ---
Assessment/Plan Problems: (1) Cellulitis of right lower extremity (2) Ulcer of heel and midfoot (3) ETOH abuse (4) HTN (hypertension) (5) Diabetes (6) Anemia (7) S/P BKA (below knee amputation) Assessment/Plan continue abx check cutlrues f/u ID recommendations dc planning to a nursign home pt/ot \ Subjective ROS Limited/Unobtainable: No Constitutional: Reports: no symptoms HEENT: Repors: no symptoms Respiratory: Reports: no symptoms Allergies: Coded Allergies: No Known Allergies (Unverified , 11/16/14) Objective Last 24 Hour Vital Signs Date Time Temp Pulse Resp B/P (MAP) Pulse Ox O2 Delivery O2 Flow Rate FiO2 06/01/17 15:53 Room Air 06/01/17 15:52 98.4 63 19 156/86 94 98.4 06/01/17 12:00 98.1 70 16 144/79 97 98.1 06/01/17 08:01 Room Air 06/01/17 08:00 98.1 71 18 152/76 94 98.1 06/01/17 04:51 98.7 63 20 147/80 94 Room Air 98.7 06/01/17 04:00 Room Air 06/01/17 00:28 97.9 65 20 148/77 98 Room Air 97.9 06/01/17 00:00 Room Air 05/31/17 20:23 97.7 63 20 165/85 96 Room Air 97.7 05/31/17 20:00 Room Air Intake and Output 05/31/17 06/01/17 19:00 07:00 Intake Total 480 ml 535 ml Output Total 1150 ml 950 ml Balance -670 ml -415 ml Intake Oral 480 ml 480 ml IV Total 55 ml Output Urine Total 1150 ml 950 ml # Bowel Movements 1 Objective General Appearance: WD/WN HEENT: normocephalic, atraumatic Respiratory/Chest: chest wall non-tender, lungs clear Breasts: no masses Cardiovascular: normal peripheral pulses, regular rhythm Abdomen: normal bowel sounds, soft, non tender Genitourinary: normal external genitalia Extremities: no cyanosis, aka Skin: extensive keratic lesions on leg Current Medications Medications (Trade) Dose Ordered Sig/Caden Route PRN Reason Start Time Stop Time Status Last Admin Dose Admin Acetaminophen (Tylenol) 650 mg Q4H PRN ORAL fever 05/20/17 21:45 06/19/17 21:44 05/21/17 10:25 Ceftriaxone Sodium 2 gm/ Sodium Chloride 55 ml @ 110 mls/hr Q24H IVPB 05/24/17 21:00 07/01/17 20:59 05/31/17 20:35 Clonidine HCl (Catapres Tab) 0.1 mg EVERY 6 HOURS PRN ORAL SBP >160mmHg 05/31/17 17:00 06/30/17 16:59 05/31/17 16:59 Dextrose (Dextrose 50%) STAT PRN IV Hypoglycemia 05/21/17 07:30 06/20/17 07:29 Heparin Sodium (Porcine) (Heparin 5000 units/ml) 5,000 units EVERY 12 HOURS SUBQ 05/21/17 09:00 06/20/17 08:59 06/01/17 09:26 Insulin Aspart (NovoLOG) BEFORE MEALS AND HS SUBQ 05/21/17 08:30 06/20/17 08:29 06/01/17 16:46 Metronidazole (Flagyl) 500 mg Q6HR ORAL 05/30/17 00:00 06/06/17 00:00 06/01/17 17:27 Nitroglycerin (Ntg) 0.4 mg Every 5 Minutes PRN SL Prn Chest Pain 05/20/17 21:45 06/19/17 21:44 Ondansetron HCl (Zofran) 4 mg Q6H PRN IVP Nausea & Vomiting 05/20/17 21:45 06/19/17 21:44 Polyethylene Glycol (Miralax) 17 gm DAILYPRN PRN ORAL Constipation 05/20/17 21:45 06/19/17 21:44 Sodium Hypochlorite (Dakin's Quarter Strength) 1 applic DAILY TOPIC 05/23/17 09:00 06/22/17 08:59 06/01/17 09:21 Vancomycin HCl (Vanco rx to dose) 1 ea DAILYPRN PRN MISC RX TO DOSE PROTOCOL 05/28/17 17:15 06/27/17 17:14 Vancomycin/Sodium Chloride 250 ml @ 166.667 mls/hr Q12HR@0600,1800 IVPB 05/29/17 18:00 06/03/17 17:59 06/01/17 17:27 Kyra Massey MD Jun 01, 2017 19:33
[2017-06-01 19:39] VITALS: BP 152/87
[2017-06-01] MEDS: cefTRIAXone 2 GM in NS 55 ML IVPB SCH (20:37)
[2017-06-02 00:23] VITALS: BP 175/93
[2017-06-02 04:40] VITALS: BP 170/92
[2017-06-02] MEDS: metroNIDAZOLE 500mg tab ORAL SCH ×3 (05:58→17:03)
[2017-06-02] MEDS: Vancomycin 750mg/NS 250ml IVPB SCH ×2 (05:58→17:03)
[2017-06-02] MEDS: NovoLOG Insulin Flexpen SUBQ SCH ×4 (05:59→20:28)
[2017-06-02 09:00] VITALS: BP 116/67
[2017-06-02] MEDS: Dakin's 0.125% Soln (Quarter Strength) 16oz TOPIC SCH (09:12)
[2017-06-02] MEDS: Heparin 5000 units/ml inj SUBQ SCH ×2 (09:12→20:29)
--- NOTE | 2017-06-02 10:53 | Infectious Diseases Prog Note ---
Assessment/Plan Assessment/Plan The patient is a 66-year-old male with Right foot cellulitis. right big toe. osteo -MRI R foot: Findings suspicious for osteomyelitis of the distal aspect of the first distal phalanx -wound cx E.fecalis ([place] S), CoNS (likely represents colonizers) Fever, SP Normal white blood cells Influenza screening tests : Neg Diabetes. Hyperlipidemia. Hypertension. Left BKA. History of alcohol abuse and smoking until recently. 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 PLAN: On IV vancomycin and Ceftriaxone abx d# 13/42 and Flagyl #5 for R 1st toe OM and foot cellulitis; ok to discharge on PO Bactrims DS 2 tab bid and PO Augmentin 875/125mg PO BId to complete course (Rx in chart) -05/24 SP Cefepime #4 Monitor CBC. Monitor BMP. Monitor Wnd cultures Monitor blood culture. Discussed with RN and rn case management. Subjective Allergies: Coded Allergies: No Known Allergies (Unverified , 11/16/14) Subjective afebrile no leukocytosis bcx neg discharge planning Objective Vital Signs Last 24 Hour Vital Signs Date Time Temp Pulse Resp B/P (MAP) Pulse Ox O2 Delivery O2 Flow Rate FiO2 06/02/17 09:00 97.1 63 19 116/67 93 97.1 06/02/17 04:40 95 Room Air 06/02/17 04:40 97.5 65 20 170/92 95 Room Air 97.5 06/02/17 00:38 175/93 06/02/17 00:23 97.7 67 20 175/93 97 Room Air 97.7 06/01/17 19:45 97 Room Air 06/01/17 19:39 97.7 66 20 152/87 97 Room Air 97.7 06/01/17 15:53 Room Air 06/01/17 15:52 98.4 63 19 156/86 94 98.4 06/01/17 12:00 98.1 70 16 144/79 97 98.1 Height (Feet): 5 Height (Inches): 7.00 Weight (Pounds): 180 Objective General Appearance: WD/WN HEENT: normocephalic, atraumatic Respiratory/Chest: chest wall non-tender, lungs clear Breasts: no masses Cardiovascular: normal peripheral pulses, regular rhythm Abdomen: normal bowel sounds, soft, non tender Genitourinary: normal external genitalia Extremities: no cyanosis, aka Skin: extensive keratic lesions on leg Current Medications Medications (Trade) Dose Ordered Sig/Caden Route PRN Reason Start Time Stop Time Status Last Admin Dose Admin Acetaminophen (Tylenol) 650 mg Q4H PRN ORAL fever 05/20/17 21:45 06/19/17 21:44 05/21/17 10:25 Ceftriaxone Sodium 2 gm/ Sodium Chloride 55 ml @ 110 mls/hr Q24H IVPB 05/24/17 21:00 07/01/17 20:59 06/01/17 20:37 Clonidine HCl (Catapres Tab) 0.1 mg EVERY 6 HOURS PRN ORAL SBP >160mmHg 05/31/17 17:00 06/30/17 16:59 06/02/17 00:38 Dextrose (Dextrose 50%) STAT PRN IV Hypoglycemia 05/21/17 07:30 06/20/17 07:29 Heparin Sodium (Porcine) (Heparin 5000 units/ml) 5,000 units EVERY 12 HOURS SUBQ 05/21/17 09:00 06/20/17 08:59 06/02/17 09:12 Insulin Aspart (NovoLOG) BEFORE MEALS AND HS SUBQ 05/21/17 08:30 06/20/17 08:29 06/02/17 05:59 Metronidazole (Flagyl) 500 mg Q6HR ORAL 05/30/17 00:00 06/06/17 00:00 06/02/17 05:58 Nitroglycerin (Ntg) 0.4 mg Every 5 Minutes PRN SL Prn Chest Pain 05/20/17 21:45 06/19/17 21:44 Ondansetron HCl (Zofran) 4 mg Q6H PRN IVP Nausea & Vomiting 05/20/17 21:45 06/19/17 21:44 Polyethylene Glycol (Miralax) 17 gm DAILYPRN PRN ORAL Constipation 05/20/17 21:45 06/19/17 21:44 Sodium Hypochlorite (Dakin's Quarter Strength) 1 applic DAILY TOPIC 05/23/17 09:00 06/22/17 08:59 06/02/17 09:12 Vancomycin HCl (Vanco rx to dose) 1 ea DAILYPRN PRN MISC RX TO DOSE PROTOCOL 05/28/17 17:15 07/02/17 17:14 Vancomycin/Sodium Chloride 250 ml @ 166.667 mls/hr Q12HR@0600,1800 IVPB 05/29/17 18:00 07/02/17 17:59 06/02/17 05:58 Dena Frank M.D. Jun 02, 2017 10:53
[2017-06-02 12:00] VITALS: BP 151/83
[2017-06-02 16:00] VITALS: BP 157/85
--- NOTE | 2017-06-02 17:20 | Pulmonology Progress Note ---
Assessment/Plan Problems: (1) Osteomyelitis of ankle or foot, acute (2) Cellulitis of right lower extremity (3) Ulcer of heel and midfoot (4) ETOH abuse (5) HTN (hypertension) (6) Diabetes (7) Anemia (8) S/P BKA (below knee amputation) Assessment/Plan continue abx, fci check cutlrues f/u ID recommendations dc planning to a nursign home pt/ot \ Subjective ROS Limited/Unobtainable: No Constitutional: Reports: no symptoms HEENT: Repors: no symptoms Respiratory: Reports: no symptoms Allergies: Coded Allergies: No Known Allergies (Unverified , 11/16/14) Objective Last 24 Hour Vital Signs Date Time Temp Pulse Resp B/P (MAP) Pulse Ox O2 Delivery O2 Flow Rate FiO2 06/02/17 16:00 98.2 65 19 157/85 98 98.2 06/02/17 12:00 98.1 65 19 151/83 97 98.1 06/02/17 09:00 97.1 63 19 116/67 93 97.1 06/02/17 04:40 95 Room Air 06/02/17 04:40 97.5 65 20 170/92 95 Room Air 97.5 06/02/17 00:38 175/93 06/02/17 00:23 97.7 67 20 175/93 97 Room Air 97.7 06/01/17 19:45 97 Room Air 06/01/17 19:39 97.7 66 20 152/87 97 Room Air 97.7 Intake and Output 06/01/17 06/02/17 19:00 07:00 Intake Total 730.000 ml 221.667 ml Output Total 480 ml 650 ml Balance 250.000 ml -428.333 ml Intake Oral 480 ml IV Total 250.000 ml 221.667 ml Output Urine Total 480 ml 650 ml # Voids 4 # Bowel Movements 1 Objective General Appearance: WD/WN HEENT: normocephalic, atraumatic Respiratory/Chest: chest wall non-tender, lungs clear Breasts: no masses Cardiovascular: normal peripheral pulses, regular rhythm Abdomen: normal bowel sounds, soft, non tender Genitourinary: normal external genitalia Extremities: no cyanosis, aka Skin: extensive keratic lesions on leg Current Medications Medications (Trade) Dose Ordered Sig/Caden Route PRN Reason Start Time Stop Time Status Last Admin Dose Admin Acetaminophen (Tylenol) 650 mg Q4H PRN ORAL fever 05/20/17 21:45 06/19/17 21:44 05/21/17 10:25 Ceftriaxone Sodium 2 gm/ Sodium Chloride 55 ml @ 110 mls/hr Q24H IVPB 05/24/17 21:00 07/01/17 20:59 06/01/17 20:37 Clonidine HCl (Catapres Tab) 0.1 mg EVERY 6 HOURS PRN ORAL SBP >160mmHg 05/31/17 17:00 06/30/17 16:59 06/02/17 00:38 Dextrose (Dextrose 50%) STAT PRN IV Hypoglycemia 05/21/17 07:30 06/20/17 07:29 Heparin Sodium (Porcine) (Heparin 5000 units/ml) 5,000 units EVERY 12 HOURS SUBQ 05/21/17 09:00 06/20/17 08:59 06/02/17 09:12 Insulin Aspart (NovoLOG) BEFORE MEALS AND HS SUBQ 05/21/17 08:30 06/20/17 08:29 06/02/17 17:09 Metronidazole (Flagyl) 500 mg Q6HR ORAL 05/30/17 00:00 06/06/17 00:00 06/02/17 17:03 Nitroglycerin (Ntg) 0.4 mg Every 5 Minutes PRN SL Prn Chest Pain 05/20/17 21:45 06/19/17 21:44 Ondansetron HCl (Zofran) 4 mg Q6H PRN IVP Nausea & Vomiting 05/20/17 21:45 06/19/17 21:44 Polyethylene Glycol (Miralax) 17 gm DAILYPRN PRN ORAL Constipation 05/20/17 21:45 06/19/17 21:44 Sodium Hypochlorite (Dakin's Quarter Strength) 1 applic DAILY TOPIC 05/23/17 09:00 06/22/17 08:59 06/02/17 09:12 Vancomycin HCl (Vanco rx to dose) 1 ea DAILYPRN PRN MISC RX TO DOSE PROTOCOL 05/28/17 17:15 07/02/17 17:14 Vancomycin/Sodium Chloride 250 ml @ 166.667 mls/hr Q12HR@0600,1800 IVPB 05/29/17 18:00 07/02/17 17:59 06/02/17 17:03 Kyra Massey MD Jun 02, 2017 17:20
[2017-06-02 19:38] VITALS: BP 184/85
[2017-06-02] MEDS: cefTRIAXone 2 GM in NS 55 ML IVPB SCH (20:29)
[2017-06-03] VITALS (7 sets, daily range): BP systolic 110–165; BP diastolic 65–96
[2017-06-03] MEDS: metroNIDAZOLE 500mg tab ORAL SCH ×5 (00:11→23:40)
[2017-06-03] MEDS: Vancomycin 750mg/NS 250ml IVPB SCH ×2 (05:23→17:10)
[2017-06-03] MEDS: NovoLOG Insulin Flexpen SUBQ SCH ×4 (05:50→20:41)
[2017-06-03] MEDS: Heparin 5000 units/ml inj SUBQ SCH ×2 (09:28→20:37)
[2017-06-03] MEDS: Dakin's 0.125% Soln (Quarter Strength) 16oz TOPIC SCH (09:29)
--- NOTE | 2017-06-03 12:32 | Wound Nurse Progress Note ---
Wound RN Progress Note Wound Consult Saw this pt today for teaching and return demonstration on how to change the dressing on his right leg and 1st big toe. Pt said "I can't see very well, I don 't want to do it." Encouraged to participate and risk and benefits explained. Pt still refused. Pt was able to set and watched/observed how to do the dressing but unable to do the return demonstration. Charge nurse made aware. Will cont to encourage and assess this Pt. WES PALOMARES RN Jun 03, 2017 12:32
[2017-06-03] MEDS: cefTRIAXone 2 GM in NS 55 ML IVPB SCH (20:35)
--- NOTE | 2017-06-03 22:30 | Pulmonology Progress Note ---
Assessment/Plan Problems: (1) Osteomyelitis of ankle or foot, acute (2) Cellulitis of right lower extremity (3) Ulcer of heel and midfoot (4) ETOH abuse (5) HTN (hypertension) (6) Diabetes (7) Anemia (8) S/P BKA (below knee amputation) Assessment/Plan continue abx, mcc check cutlrues f/u ID recommendations dc planning to a nursign home pt/ot \ Subjective ROS Limited/Unobtainable: No Constitutional: Reports: no symptoms HEENT: Repors: no symptoms Allergies: Coded Allergies: No Known Allergies (Unverified , 11/16/14) Objective Last 24 Hour Vital Signs Date Time Temp Pulse Resp B/P (MAP) Pulse Ox O2 Delivery O2 Flow Rate FiO2 06/03/17 20:00 97.8 72 16 157/86 94 97.8 06/03/17 16:00 97.8 67 20 143/75 97 97.8 06/03/17 15:50 97.8 66 20 165/96 97 97.8 06/03/17 12:23 98.1 65 20 147/79 94 98.1 06/03/17 08:32 98.0 65 20 110/65 94 98.0 06/03/17 04:00 98.6 66 20 160/85 97 Room Air 98.6 06/03/17 00:18 98.1 73 20 149/76 96 Room Air 98.1 06/03/17 00:18 96 Room Air Intake and Output 06/02/17 06/03/17 19:00 07:00 Intake Total 646.667 ml 305.000 ml Output Total 800 ml 650 ml Balance -153.333 ml -345.000 ml Intake Oral 480 ml IV Total 166.667 ml 305.000 ml Output Urine Total 800 ml 650 ml # Voids 2 4 # Bowel Movements 2 Objective General Appearance: WD/WN HEENT: normocephalic, atraumatic Respiratory/Chest: chest wall non-tender, lungs clear Breasts: no masses Cardiovascular: normal peripheral pulses, regular rhythm Abdomen: normal bowel sounds, soft, non tender Genitourinary: normal external genitalia Extremities: no cyanosis, aka Skin: extensive keratic lesions on leg Current Medications Medications (Trade) Dose Ordered Sig/Caden Route PRN Reason Start Time Stop Time Status Last Admin Dose Admin Acetaminophen (Tylenol) 650 mg Q4H PRN ORAL fever 05/20/17 21:45 06/19/17 21:44 05/21/17 10:25 Ceftriaxone Sodium 2 gm/ Sodium Chloride 55 ml @ 110 mls/hr Q24H IVPB 05/24/17 21:00 07/01/17 20:59 06/03/17 20:35 Clonidine HCl (Catapres Tab) 0.1 mg EVERY 6 HOURS PRN ORAL SBP >160mmHg 05/31/17 17:00 06/30/17 16:59 06/02/17 20:45 Dextrose (Dextrose 50%) STAT PRN IV Hypoglycemia 05/21/17 07:30 06/20/17 07:29 Heparin Sodium (Porcine) (Heparin 5000 units/ml) 5,000 units EVERY 12 HOURS SUBQ 05/21/17 09:00 06/20/17 08:59 06/03/17 20:37 Insulin Aspart (NovoLOG) BEFORE MEALS AND HS SUBQ 05/21/17 08:30 06/20/17 08:29 06/03/17 20:41 Metronidazole (Flagyl) 500 mg Q6HR ORAL 05/30/17 00:00 06/06/17 00:00 06/03/17 17:12 Nitroglycerin (Ntg) 0.4 mg Every 5 Minutes PRN SL Prn Chest Pain 05/20/17 21:45 06/19/17 21:44 Ondansetron HCl (Zofran) 4 mg Q6H PRN IVP Nausea & Vomiting 05/20/17 21:45 06/19/17 21:44 Polyethylene Glycol (Miralax) 17 gm DAILYPRN PRN ORAL Constipation 05/20/17 21:45 06/19/17 21:44 Sodium Hypochlorite (Dakin's Quarter Strength) 1 applic DAILY TOPIC 05/23/17 09:00 06/22/17 08:59 06/03/17 09:29 Vancomycin HCl (Vanco rx to dose) 1 ea DAILYPRN PRN MISC RX TO DOSE PROTOCOL 05/28/17 17:15 07/02/17 17:14 Vancomycin/Sodium Chloride 250 ml @ 166.667 mls/hr Q12HR@0600,1800 IVPB 05/29/17 18:00 07/02/17 17:59 06/03/17 17:10 Kyra Massey MD Jun 03, 2017 22:30
[2017-06-04] VITALS: BP 155/82
[2017-06-04 04:03] VITALS: BP 156/89
[2017-06-04] MEDS: metroNIDAZOLE 500mg tab ORAL SCH ×4 (05:55→23:27)
[2017-06-04] MEDS: Vancomycin 750mg/NS 250ml IVPB SCH ×2 (05:55→18:12)
[2017-06-04] MEDS: NovoLOG Insulin Flexpen SUBQ SCH ×4 (06:07→20:32)
--- NOTE | 2017-06-04 07:29 | Pulmonology Progress Note ---
Assessment/Plan Assessment/Plan ASSESSMENT R foot cellulitis acute R big toe osteomyelitis diabetic foot ulcer right hallux DM diabetic neuropathy HTN L BKA ETOH abuse hx of smoking PLAN OF CARE MS floor abx ID follows MRI + acute osteo R big toe wound cx +SCON, Enterococci blood cx negative influenza negative podiatry eval appreciated wound care BS management, add Levemir and SSI prn, check HgA1c BP management add Lisinopril, optimize further as needed DVT prophylaxis venous Duplex chronic thrombus SFV LLE PT/OT pain management bowel regimen dc planning to SNF awaiting for insurance case discussed and evaluated by supervising physician Subjective Allergies: Coded Allergies: No Known Allergies (Unverified , 11/16/14) Subjective afebrile, no leucocytosis Objective Last 24 Hour Vital Signs Date Time Temp Pulse Resp B/P (MAP) Pulse Ox O2 Delivery O2 Flow Rate FiO2 06/04/17 04:03 97.3 71 20 156/89 97 Room Air 97.3 06/04/17 03:35 96 Room Air 06/04/17 00:00 97.9 75 16 155/82 96 97.9 06/03/17 20:00 97.8 72 16 157/86 94 97.8 06/03/17 20:00 94 Room Air 06/03/17 16:00 97.8 67 20 143/75 97 97.8 06/03/17 15:50 97.8 66 20 165/96 97 97.8 06/03/17 12:23 98.1 65 20 147/79 94 98.1 06/03/17 08:32 98.0 65 20 110/65 94 98.0 Intake and Output 06/03/17 06/04/17 19:00 07:00 Intake Total 886.667 ml 388.334 ml Output Total 1000 ml 350 ml Balance -113.333 ml 38.334 ml Intake Oral 720 ml IV Total 166.667 ml 388.334 ml Output Urine Total 1000 ml 350 ml # Voids 5 # Bowel Movements 1 General Appearance: no acute distress HEENT: normocephalic, atraumatic, anicteric Respiratory/Chest: lungs clear, no accessory muscle use Cardiovascular: normal rate, no JVD Abdomen: normal bowel sounds, soft, non tender, non distended Extremities: other - L BKA Skin: other - R foot edema, erythema, necrosis 1 st toe Neurologic/Psychiatric: abnormal gait, alert, responsive Current Medications Medications (Trade) Dose Ordered Sig/Caden Route PRN Reason Start Time Stop Time Status Last Admin Dose Admin Acetaminophen (Tylenol) 650 mg Q4H PRN ORAL fever 05/20/17 21:45 06/19/17 21:44 05/21/17 10:25 Ceftriaxone Sodium 2 gm/ Sodium Chloride 55 ml @ 110 mls/hr Q24H IVPB 05/24/17 21:00 07/01/17 20:59 06/03/17 20:35 Clonidine HCl (Catapres Tab) 0.1 mg EVERY 6 HOURS PRN ORAL SBP >160mmHg 05/31/17 17:00 06/30/17 16:59 06/02/17 20:45 Dextrose (Dextrose 50%) STAT PRN IV Hypoglycemia 05/21/17 07:30 06/20/17 07:29 Heparin Sodium (Porcine) (Heparin 5000 units/ml) 5,000 units EVERY 12 HOURS SUBQ 05/21/17 09:00 06/20/17 08:59 06/03/17 20:37 Insulin Aspart (NovoLOG) BEFORE MEALS AND HS SUBQ 05/21/17 08:30 06/20/17 08:29 06/04/17 06:07 Metronidazole (Flagyl) 500 mg Q6HR ORAL 05/30/17 00:00 06/06/17 00:00 06/04/17 05:55 Nitroglycerin (Ntg) 0.4 mg Every 5 Minutes PRN SL Prn Chest Pain 05/20/17 21:45 06/19/17 21:44 Ondansetron HCl (Zofran) 4 mg Q6H PRN IVP Nausea & Vomiting 05/20/17 21:45 06/19/17 21:44 Polyethylene Glycol (Miralax) 17 gm DAILYPRN PRN ORAL Constipation 05/20/17 21:45 06/19/17 21:44 Sodium Hypochlorite (Dakin's Quarter Strength) 1 applic DAILY TOPIC 05/23/17 09:00 06/22/17 08:59 06/03/17 09:29 Vancomycin HCl (Vanco rx to dose) 1 ea DAILYPRN PRN MISC RX TO DOSE PROTOCOL 05/28/17 17:15 07/02/17 17:14 Vancomycin/Sodium Chloride 250 ml @ 166.667 mls/hr Q12HR@0600,1800 IVPB 05/29/17 18:00 07/02/17 17:59 06/04/17 05:55 Yony ([facility])[place] NP Jun 04, 2017 07:29
[2017-06-04 08:00] VITALS: BP 152/78
[2017-06-04] MEDS: Lisinopril 10mg tab ORAL SCH (10:11)
[2017-06-04] MEDS: Levemir Flexpen SUBQ SCH (10:12)
[2017-06-04] MEDS: Heparin 5000 units/ml inj SUBQ SCH ×2 (10:13→20:34)
[2017-06-04 12:00] VITALS: BP 146/86
[2017-06-04 16:00] VITALS: BP 156/81
[2017-06-04] MEDS: Dakin's 0.125% Soln (Quarter Strength) 16oz TOPIC SCH (16:08)
--- NOTE | 2017-06-04 16:35 | Infectious Diseases Prog Note ---
Assessment/Plan Assessment/Plan The patient is a 66-year-old male with Right foot cellulitis. right big toe. osteo -MRI R foot: Findings suspicious for osteomyelitis of the distal aspect of the first distal phalanx -wound cx E.fecalis ([place] S), CoNS (likely represents colonizers) Fever, SP Normal white blood cells Influenza screening tests : Neg Diabetes. Hyperlipidemia. Hypertension. Left BKA. History of alcohol abuse and smoking until recently. 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 PLAN: On IV vancomycin and Ceftriaxone abx d# 15/ and Flagyl #7 for R 1st toe OM and foot cellulitis; ok to discharge on PO Bactrim DS 2 tab bid and PO Augmentin 875/125mg PO BId to complete course (Rx in chart) -05/24 SP Cefepime #4 Monitor CBC. Monitor BMP. Monitor Wnd cultures Monitor blood culture. Discussed with RN and field case manager. Subjective Allergies: Coded Allergies: No Known Allergies (Unverified , 11/16/14) Subjective afebrile no leukocytosis bcx neg discharge planning Objective Vital Signs Last 24 Hour Vital Signs Date Time Temp Pulse Resp B/P (MAP) Pulse Ox O2 Delivery O2 Flow Rate FiO2 06/04/17 12:00 97.3 110 19 146/86 97 97.3 06/04/17 10:11 152/78 06/04/17 08:00 97.3 62 19 152/78 98 97.3 06/04/17 04:03 97.3 71 20 156/89 97 Room Air 97.3 06/04/17 03:35 96 Room Air 06/04/17 00:00 97.9 75 16 155/82 96 97.9 06/03/17 20:00 97.8 72 16 157/86 94 97.8 06/03/17 20:00 94 Room Air Height (Feet): 5 Height (Inches): 7.00 Weight (Pounds): 180 Objective General Appearance: WD/WN HEENT: normocephalic, atraumatic Respiratory/Chest: chest wall non-tender, lungs clear Breasts: no masses Cardiovascular: normal peripheral pulses, regular rhythm Abdomen: normal bowel sounds, soft, non tender Genitourinary: normal external genitalia Extremities: no cyanosis, aka Skin: extensive keratic lesions on leg Current Medications Medications (Trade) Dose Ordered Sig/Caden Route PRN Reason Start Time Stop Time Status Last Admin Dose Admin Acetaminophen (Tylenol) 650 mg Q4H PRN ORAL fever 05/20/17 21:45 06/19/17 21:44 05/21/17 10:25 Ceftriaxone Sodium 2 gm/ Sodium Chloride 55 ml @ 110 mls/hr Q24H IVPB 05/24/17 21:00 07/01/17 20:59 06/03/17 20:35 Clonidine HCl (Catapres Tab) 0.1 mg EVERY 6 HOURS PRN ORAL SBP >160mmHg 05/31/17 17:00 06/30/17 16:59 06/02/17 20:45 Dextrose (Dextrose 50%) STAT PRN IV Hypoglycemia 05/21/17 07:30 06/20/17 07:29 Heparin Sodium (Porcine) (Heparin 5000 units/ml) 5,000 units EVERY 12 HOURS SUBQ 05/21/17 09:00 06/20/17 08:59 06/04/17 10:13 Insulin Aspart (NovoLOG) BEFORE MEALS AND HS SUBQ 05/21/17 08:30 06/20/17 08:29 06/04/17 12:27 Insulin Detemir (Levemir) 8 units Q24H SUBQ 06/04/17 07:30 07/04/17 07:29 06/04/17 10:12 Lisinopril (Zestril) 10 mg DAILY ORAL 06/04/17 09:00 07/04/17 08:59 06/04/17 10:11 Metronidazole (Flagyl) 500 mg Q6HR ORAL 05/30/17 00:00 06/06/17 00:00 06/04/17 12:26 Nitroglycerin (Ntg) 0.4 mg Every 5 Minutes PRN SL Prn Chest Pain 05/20/17 21:45 06/19/17 21:44 Ondansetron HCl (Zofran) 4 mg Q6H PRN IVP Nausea & Vomiting 05/20/17 21:45 06/19/17 21:44 Polyethylene Glycol (Miralax) 17 gm DAILYPRN PRN ORAL Constipation 05/20/17 21:45 06/19/17 21:44 Sodium Hypochlorite (Dakin's Quarter Strength) 1 applic DAILY TOPIC 05/23/17 09:00 06/22/17 08:59 06/04/17 16:08 Vancomycin HCl (Vanco rx to dose) 1 ea DAILYPRN PRN MISC RX TO DOSE PROTOCOL 05/28/17 17:15 07/02/17 17:14 Vancomycin/Sodium Chloride 250 ml @ 166.667 mls/hr Q12HR@0600,1800 IVPB 05/29/17 18:00 07/02/17 17:59 06/04/17 05:55 Dena Frank M.D. Jun 04, 2017 16:35
[2017-06-04 20:00] VITALS: BP 156/85
[2017-06-04] MEDS: cefTRIAXone 2 GM in NS 55 ML IVPB SCH (20:30)
[2017-06-05] VITALS (7 sets, daily range): BP systolic 139–170; BP diastolic 75–94
[2017-06-05] MEDS: metroNIDAZOLE 500mg tab ORAL SCH ×4 (06:00→23:12)
[2017-06-05] MEDS: NovoLOG Insulin Flexpen SUBQ SCH ×4 (06:03→20:50)
[2017-06-05 07:22] LABS: ANION GAP 8 mmol/L (5-15); BLOOD UREA NITROGEN 12 mg/dL (7-18); CALCIUM 8.2 MG/DL (8.5-10.1); CARBON DIOXIDE 28 MMOL/L (21-32); CHLORIDE 104 MMOL/L (98-107); CREATININE 1.1 MG/DL (0.55-1.30); POTASSIUM 3.5 MMOL/L (3.5-5.1); SODIUM 140 MMOL/L (136-145)
[2017-06-05 07:52] LABS: BASOPHILS % (AUTO) 1.4 % (0.0-2.0); EOSINOPHILS % (AUTO) 3.8 % (0.0-3.0); HEMATOCRIT 38.7 % (42.0-52.0); HEMOGLOBIN 12.9 G/DL (14.2-18.0); LYMPHOCYTES % (AUTO) 26.3 % (20.0-45.0); MEAN CORPUSCULAR VOLUME 87 FL (80-99); MONOCYTES % (AUTO) 8.7 % (1.0-10.0); NEUTROPHILS % (AUTO) 59.9 % (45.0-75.0); PLATELET COUNT 235 K/UL (150-450); RED BLOOD COUNT 4.43 M/UL (4.70-6.10); RED CELL DISTRIBUTION WIDTH 12.2 % (11.6-14.8); WHITE BLOOD COUNT 7.8 K/UL (4.8-10.8)
[2017-06-05] MEDS: Dakin's 0.125% Soln (Quarter Strength) 16oz TOPIC SCH (09:17)
[2017-06-05] MEDS: Lisinopril 10mg tab ORAL SCH (09:17)
[2017-06-05] MEDS: Heparin 5000 units/ml inj SUBQ SCH ×2 (09:20→20:49)
[2017-06-05] MEDS: Levemir Flexpen SUBQ SCH (09:20)
[2017-06-05] MEDS: Vancomycin 1gm/D5W 275ml IVPB SCH ×2 (12:02)
--- NOTE | 2017-06-05 12:26 | Infectious Diseases Prog Note ---
Assessment/Plan Assessment/Plan The patient is a 66-year-old male with Right foot cellulitis. right big toe. osteo -MRI R foot: Findings suspicious for osteomyelitis of the distal aspect of the first distal phalanx -wound cx E.fecalis ([place] S), CoNS (likely represents colonizers) Fever, SP Normal white blood cells Influenza screening tests : Neg Diabetes. Hyperlipidemia. Hypertension. Left BKA. History of alcohol abuse and smoking until recently. 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 PLAN: On IV vancomycin and Ceftriaxone abx d# 16/42 and Flagyl #8 for R 1st toe OM and foot cellulitis; ok to discharge on PO Bactrim DS 2 tab bid and PO Augmentin 875/125mg PO BId to complete course (Rx in chart) -05/24 SP Cefepime #4 Monitor CBC. Monitor BMP. Monitor Wnd cultures Monitor blood culture. Discussed with RN Subjective Allergies: Coded Allergies: No Known Allergies (Unverified , 11/16/14) Subjective afebrile no leukocytosis bcx neg discharge planning Objective Vital Signs Last 24 Hour Vital Signs Date Time Temp Pulse Resp B/P (MAP) Pulse Ox O2 Delivery O2 Flow Rate FiO2 06/05/17 12:00 98.1 66 20 159/88 96 98.1 06/05/17 09:17 139/77 06/05/17 08:00 97.9 65 20 139/77 95 97.9 06/05/17 04:00 98.4 70 18 149/75 96 Room Air 98.4 06/05/17 00:07 162/94 06/05/17 00:00 Room Air 06/05/17 00:00 98.6 69 18 162/94 95 Room Air 98.6 06/04/17 20:00 Room Air 06/04/17 20:00 99.1 66 21 156/85 95 Room Air 99.1 06/04/17 16:00 97.2 63 18 156/81 93 97.2 Height (Feet): 5 Height (Inches): 7.00 Weight (Pounds): 180 Objective General Appearance: WD/WN HEENT: normocephalic, atraumatic Respiratory/Chest: chest wall non-tender, lungs clear Breasts: no masses Cardiovascular: normal peripheral pulses, regular rhythm Abdomen: normal bowel sounds, soft, non tender Genitourinary: normal external genitalia Extremities: no cyanosis, aka Skin: extensive keratic lesions on leg Laboratory Tests Test 06/04/17 17:25 06/05/17 06:10 Vancomycin Level Trough 19.5 ug/mL (5.0-12.0) H White Blood Count 7.8 K/UL (4.8-10.8) Red Blood Count 4.43 M/UL (4.70-6.10) L Hemoglobin 12.9 G/DL (14.2-18.0) L Hematocrit 38.7 % (42.0-52.0) L Mean Corpuscular Volume 87 FL (80-99) Mean Corpuscular Hemoglobin 29.0 PG (27.0-31.0) Mean Corpuscular Hemoglobin Concent 33.2 G/DL (32.0-36.0) Red Cell Distribution Width 12.2 % (11.6-14.8) Platelet Count 235 K/UL (150-450) Mean Platelet Volume 10.8 FL (6.5-10.1) H Neutrophils (%) (Auto) 59.9 % (45.0-75.0) Lymphocytes (%) (Auto) 26.3 % (20.0-45.0) Monocytes (%) (Auto) 8.7 % (1.0-10.0) Eosinophils (%) (Auto) 3.8 % (0.0-3.0) H Basophils (%) (Auto) 1.4 % (0.0-2.0) Sodium Level 140 MMOL/L (136-145) Potassium Level 3.5 MMOL/L (3.5-5.1) Chloride Level 104 MMOL/L (98-107) Carbon Dioxide Level 28 MMOL/L (21-32) Anion Gap 8 mmol/L (5-15) Blood Urea Nitrogen 12 mg/dL (7-18) Creatinine 1.1 MG/DL (0.55-1.30) Estimat Glomerular Filtration Rate > 60 mL/min (>60) Glucose Level 219 MG/DL (74-106) H Hemoglobin A1c 9.9 % (4.3-6.0) H Calcium Level 8.2 MG/DL (8.5-10.1) L Current Medications Medications (Trade) Dose Ordered Sig/Caden Route PRN Reason Start Time Stop Time Status Last Admin Dose Admin Acetaminophen (Tylenol) 650 mg Q4H PRN ORAL fever 05/20/17 21:45 06/19/17 21:44 05/21/17 10:25 Ceftriaxone Sodium 2 gm/ Sodium Chloride 55 ml @ 110 mls/hr Q24H IVPB 05/24/17 21:00 07/01/17 20:59 06/04/17 20:30 Clonidine HCl (Catapres Tab) 0.1 mg EVERY 6 HOURS PRN ORAL SBP >160mmHg 05/31/17 17:00 06/30/17 16:59 06/05/17 00:07 Dextrose (Dextrose 50%) STAT PRN IV Hypoglycemia 05/21/17 07:30 06/20/17 07:29 Heparin Sodium (Porcine) (Heparin 5000 units/ml) 5,000 units EVERY 12 HOURS SUBQ 05/21/17 09:00 06/20/17 08:59 06/05/17 09:20 Insulin Aspart (NovoLOG) BEFORE MEALS AND HS SUBQ 05/21/17 08:30 06/20/17 08:29 06/05/17 12:03 Insulin Detemir (Levemir) 8 units Q24H SUBQ 06/04/17 07:30 07/04/17 07:29 06/05/17 09:20 Lisinopril (Zestril) 10 mg DAILY ORAL 06/04/17 09:00 07/04/17 08:59 06/05/17 09:17 Metronidazole (Flagyl) 500 mg Q6HR ORAL 05/30/17 00:00 06/06/17 00:00 06/05/17 12:02 Nitroglycerin (Ntg) 0.4 mg Every 5 Minutes PRN SL Prn Chest Pain 05/20/17 21:45 06/19/17 21:44 Ondansetron HCl (Zofran) 4 mg Q6H PRN IVP Nausea & Vomiting 05/20/17 21:45 06/19/17 21:44 Polyethylene Glycol (Miralax) 17 gm DAILYPRN PRN ORAL Constipation 05/20/17 21:45 06/19/17 21:44 Sodium Hypochlorite (Dakin's Quarter Strength) 1 applic DAILY TOPIC 05/23/17 09:00 06/22/17 08:59 06/05/17 09:17 Vancomycin HCl (Vanco rx to dose) 1 ea DAILYPRN PRN MISC RX TO DOSE PROTOCOL 05/28/17 17:15 07/02/17 17:14 Vancomycin HCl 1 gm/Dextrose 275 ml @ 183.708 mls/hr Q18H IVPB 06/05/17 12:00 07/02/17 23:59 06/05/17 12:02 Dena Frank M.D. Jun 05, 2017 12:25
--- NOTE | 2017-06-05 13:06 | Pulmonology Progress Note ---
Assessment/Plan Assessment/Plan ASSESSMENT R foot cellulitis acute R big toe osteomyelitis diabetic foot ulcer right hallux DM diabetic neuropathy HTN L BKA ETOH abuse hx of smoking PLAN OF CARE MS floor abx ID follows MRI + acute osteo R big toe wound cx +SCON, Enterococci blood cx negative influenza negative podiatry eval appreciated wound care BS management, add Levemir and SSI prn, check HgA1c BP management add Lisinopril, optimize further as needed DVT prophylaxis venous Duplex chronic thrombus SFV LLE PT/OT pain management bowel regimen dc planning per ID can be dc on oral abx, scripts in chart SW for assistance with placement ( homeless, BKA) case discussed and evaluated by supervising physician Subjective Allergies: Coded Allergies: No Known Allergies (Unverified , 11/16/14) Subjective afebrile, no leucocytosis no signs of distress Objective Last 24 Hour Vital Signs Date Time Temp Pulse Resp B/P (MAP) Pulse Ox O2 Delivery O2 Flow Rate FiO2 06/05/17 12:00 98.1 66 20 159/88 96 98.1 06/05/17 09:17 139/77 06/05/17 08:00 97.9 65 20 139/77 95 97.9 06/05/17 04:00 98.4 70 18 149/75 96 Room Air 98.4 06/05/17 00:07 162/94 06/05/17 00:00 Room Air 06/05/17 00:00 98.6 69 18 162/94 95 Room Air 98.6 06/04/17 20:00 Room Air 06/04/17 20:00 99.1 66 21 156/85 95 Room Air 99.1 06/04/17 16:00 97.2 63 18 156/81 93 97.2 Intake and Output 06/04/17 06/05/17 19:00 07:00 Intake Total 663.333 ml 535 ml Output Total 1450 ml Balance -786.667 ml 535 ml Intake Oral 580 ml 480 ml IV Total 83.333 ml 55 ml Output Urine Total 1450 ml # Voids 4 # Bowel Movements 1 Objective General Appearance: no acute distress HEENT: normocephalic, atraumatic, anicteric Respiratory/Chest: lungs clear, no accessory muscle use Cardiovascular: normal rate, no JVD Abdomen: normal bowel sounds, soft, non tender, non distended Extremities: L BKA, R foot edema, erythema, necrosis [address] st toe Neurologic/Psychiatric: abnormal gait, alert, responsive Laboratory Tests 06/04/17 17:25: Vancomycin Level Trough 19.5H 06/05/17 06:10: White Blood Count 7.8, Red Blood Count 4.43L, Hemoglobin 12.9L, Hematocrit 38.7L , Mean Corpuscular Volume 87, Mean Corpuscular Hemoglobin 29.0, Mean Corpuscular Hemoglobin Concent 33.2, Red Cell Distribution Width 12.2, Platelet Count 235, Mean Platelet Volume 10.8H, Neutrophils (%) (Auto) 59.9, Lymphocytes (%) (Auto) 26.3, Monocytes (%) (Auto) 8.7, Eosinophils (%) (Auto) 3.8H, Basophils (%) (Auto) 1.4, Sodium Level 140, Potassium Level 3.5, Chloride Level 104, Carbon Dioxide Level 28, Anion Gap 8, Blood Urea Nitrogen 12, Creatinine 1.1, Estimat Glomerular Filtration Rate > 60, Glucose Level 219H, Hemoglobin A1c 9.9H, Calcium Level 8.2L Current Medications Medications (Trade) Dose Ordered Sig/Caden Route PRN Reason Start Time Stop Time Status Last Admin Dose Admin Acetaminophen (Tylenol) 650 mg Q4H PRN ORAL fever 05/20/17 21:45 06/19/17 21:44 05/21/17 10:25 Ceftriaxone Sodium 2 gm/ Sodium Chloride 55 ml @ 110 mls/hr Q24H IVPB 05/24/17 21:00 07/01/17 20:59 06/04/17 20:30 Clonidine HCl (Catapres Tab) 0.1 mg EVERY 6 HOURS PRN ORAL SBP >160mmHg 05/31/17 17:00 06/30/17 16:59 06/05/17 00:07 Dextrose (Dextrose 50%) STAT PRN IV Hypoglycemia 05/21/17 07:30 06/20/17 07:29 Heparin Sodium (Porcine) (Heparin 5000 units/ml) 5,000 units EVERY 12 HOURS SUBQ 05/21/17 09:00 06/20/17 08:59 06/05/17 09:20 Insulin Aspart (NovoLOG) BEFORE MEALS AND HS SUBQ 05/21/17 08:30 06/20/17 08:29 06/05/17 12:03 Insulin Detemir (Levemir) 8 units Q24H SUBQ 06/04/17 07:30 07/04/17 07:29 06/05/17 09:20 Lisinopril (Zestril) 10 mg DAILY ORAL 06/04/17 09:00 07/04/17 08:59 06/05/17 09:17 Metronidazole (Flagyl) 500 mg Q6HR ORAL 05/30/17 00:00 06/06/17 00:00 06/05/17 12:02 Nitroglycerin (Ntg) 0.4 mg Every 5 Minutes PRN SL Prn Chest Pain 05/20/17 21:45 06/19/17 21:44 Ondansetron HCl (Zofran) 4 mg Q6H PRN IVP Nausea & Vomiting 05/20/17 21:45 06/19/17 21:44 Polyethylene Glycol (Miralax) 17 gm DAILYPRN PRN ORAL Constipation 05/20/17 21:45 06/19/17 21:44 Sodium Hypochlorite (Dakin's Quarter Strength) 1 applic DAILY TOPIC 05/23/17 09:00 06/22/17 08:59 06/05/17 09:17 Vancomycin HCl (Vanco rx to dose) 1 ea DAILYPRN PRN MISC RX TO DOSE PROTOCOL 05/28/17 17:15 07/02/17 17:14 Vancomycin HCl 1 gm/Dextrose 275 ml @ 183.708 mls/hr Q18H IVPB 06/05/17 12:00 07/02/17 23:59 06/05/17 12:02 Waleska Bhakta NP (Vanchtein) Jun 05, 2017 13:06
[2017-06-05] MEDS ORDERED: NS 275ml ONE (17:34)
[2017-06-05] MEDS: cefTRIAXone 2 GM in D5W 110 ML IVPB SCH (20:48)
--- NOTE | 2017-06-06 00:08 | Wound Care Consultation ---
Wound Assessment Wound Assessment #1: Wound Present on Admission: Yes New Wound: No Status Change of Wound: No Wound Location Body Site: perineal area - extending to left and right buttocks Wound Type: chemical burn Apple Test: Does not Apple Percent of Wound Experiment/Red: 100 Wound Drainage Amount: None Wound Drainage Odor: None/Absent Tissue Surrounding Wound: Macerated Wound General Appearance: Reddened, Open to air Wound Assessment #2: Wound Number: 2 Wound Present on Admission: No New Wound: Yes Status Change of Wound: No Wound Location Body Site Modif: right Wound Location Body Site: heel Wound Type: pressure ulcer Apple Test: Does not Apple Pressure Ulcer Stage: Deep Tissue Injury Wound Thickness: Full Thickness Wound Length: 3.5 Wound Width: 5.0 Wound Depth: utd Percent of Wound Purple/Maroon: 100 Wound Drainage Amount: None Wound Drainage Odor: None/Absent Tissue Surrounding Wound: Intact Wound General Appearance: Reddened - purple Wound Comment #1 Right foot, lower leg cellulitis and necrosis of the 1st toe. Lower leg dry scabs and open wounds. follow MD recommendation #2 Left and right ischial tuberosity with hyperpigmentation- intact #3 perineal extending to left and right buttocks chemical burn - jagruti care, keep clean and dry, apply skin barrier cream for skin management/prevention #4 Right heel DTI pressure ulcer Recommendation -Local wound care per protocol for right heel DTI pressure injury -Jagruti care, keep clean and dry, apply skin barrier cream for skin management/ prevention -Follow Podiatry order for right foot -Keep clean and dry -Turn and reposition -Offload both heels -Heel protector on both heels -Optimize nutrition -Low air loss mattress -Assess and f/u accordingly for any changes WES PALOMARES RN Jun 06, 2017 00:08
[2017-06-06 04:00] VITALS: BP 142/78
[2017-06-06] MEDS: Vancomycin 1gm/D5W 275ml IVPB SCH ×2 (05:44)
[2017-06-06] MEDS: NovoLOG Insulin Flexpen SUBQ SCH ×4 (05:46→20:30)
[2017-06-06 08:00] VITALS: BP 151/83
[2017-06-06] MEDS: Levemir Flexpen SUBQ SCH (08:43)
[2017-06-06] MEDS: Heparin 5000 units/ml inj SUBQ SCH ×2 (08:44→20:28)
[2017-06-06] MEDS: Lisinopril 10mg tab ORAL SCH (08:44)
[2017-06-06] MEDS: Dakin's 0.125% Soln (Quarter Strength) 16oz TOPIC SCH (08:45)
--- NOTE | 2017-06-06 10:23 | Pulmonology Progress Note ---
Assessment/Plan Assessment/Plan ASSESSMENT R foot cellulitis acute R big toe osteomyelitis diabetic foot ulcer right hallux DM OOC diabetic neuropathy HTN L BKA ETOH abuse hx of smoking PLAN OF CARE MS floor abx ID follows MRI + acute osteo R big toe wound cx +SCON, Enterococci blood cx negative influenza negative podiatry eval appreciated wound care BS management, added Levemir , increase dose and SSI prn, c [id number] not at goal BP management added Lisinopril, increase dose, optimize further as needed DVT prophylaxis venous Duplex with chronic thrombus SFV LLE PT/OT pain management bowel regimen dc planning per ID can be dc on oral abx, scripts in chart SW for assistance with placement ( homeless, BKA) case discussed and evaluated by supervising physician Subjective Allergies: Coded Allergies: No Known Allergies (Unverified , 11/16/14) Subjective afebrile, no leucocytosis no signs of distress denies CP SOB BS still above 200 BP elevated with current regimen Objective Last 24 Hour Vital Signs Date Time Temp Pulse Resp B/P (MAP) Pulse Ox O2 Delivery O2 Flow Rate FiO2 06/06/17 08:44 151/83 06/06/17 08:00 97.7 72 18 151/83 97 Room Air 97.7 06/06/17 04:00 98.6 68 18 142/78 96 Room Air 98.6 06/05/17 20:00 94 Room Air 06/05/17 20:00 98.4 70 18 146/79 94 Room Air 98.4 06/05/17 16:30 152/80 06/05/17 15:50 97.7 62 20 170/81 98 97.7 06/05/17 12:00 98.1 66 20 159/88 96 98.1 Intake and Output 06/05/17 06/06/17 19:00 07:00 Intake Total 955.000 ml 593.708 ml Output Total 650 ml 320 ml Balance 305.000 ml 273.708 ml Intake Oral 680 ml 300 ml IV Total 275.000 ml 293.708 ml Output Urine Total 650 ml 320 ml # Voids 2 # Bowel Movements 1 1 Objective General Appearance: no acute distress HEENT: normocephalic, atraumatic, anicteric Respiratory/Chest: lungs clear, no accessory muscle use Cardiovascular: normal rate, no JVD Abdomen: normal bowel sounds, soft, non tender, non distended Extremities: L BKA, R foot edema, erythema, necrosis [address] st toe Neurologic/Psychiatric: abnormal gait, alert, responsive Current Medications Medications (Trade) Dose Ordered Sig/Caden Route PRN Reason Start Time Stop Time Status Last Admin Dose Admin Acetaminophen (Tylenol) 650 mg Q4H PRN ORAL fever 05/20/17 21:45 06/19/17 21:44 05/21/17 10:25 Ceftriaxone Sodium 2 gm/ Dextrose 110 ml @ 220 mls/hr Q24H IVPB 06/05/17 21:00 06/12/17 20:59 06/05/17 20:48 Clonidine HCl (Catapres Tab) 0.1 mg EVERY 6 HOURS PRN ORAL SBP >160mmHg 05/31/17 17:00 06/30/17 16:59 06/05/17 00:07 Dextrose (Dextrose 50%) STAT PRN IV Hypoglycemia 05/21/17 07:30 06/20/17 07:29 Heparin Sodium (Porcine) (Heparin 5000 units/ml) 5,000 units EVERY 12 HOURS SUBQ 05/21/17 09:00 06/20/17 08:59 06/06/17 08:44 Insulin Aspart (NovoLOG) BEFORE MEALS AND HS SUBQ 05/21/17 08:30 06/20/17 08:29 06/06/17 05:46 Insulin Detemir (Levemir) 8 units Q24H SUBQ 06/04/17 07:30 07/04/17 07:29 06/06/17 08:43 Lisinopril (Zestril) 10 mg DAILY ORAL 06/04/17 09:00 07/04/17 08:59 06/06/17 08:44 Nitroglycerin (Ntg) 0.4 mg Every 5 Minutes PRN SL Prn Chest Pain 05/20/17 21:45 06/19/17 21:44 Ondansetron HCl (Zofran) 4 mg Q6H PRN IVP Nausea & Vomiting 05/20/17 21:45 06/19/17 21:44 Polyethylene Glycol (Miralax) 17 gm DAILYPRN PRN ORAL Constipation 05/20/17 21:45 06/19/17 21:44 Sodium Hypochlorite (Dakin's Quarter Strength) 1 applic DAILY TOPIC 05/23/17 09:00 4/10/18 08:59 06/06/17 08:45 Vancomycin HCl (Vanco rx to dose) 1 ea DAILYPRN PRN MISC RX TO DOSE PROTOCOL 05/28/17 17:15 07/02/17 17:14 Vancomycin HCl 1 gm/Dextrose 275 ml @ 183.708 mls/hr Q18H IVPB 06/05/17 12:00 07/02/17 23:59 06/06/17 05:44 Yony Lora)Waleska NP Jun 06, 2017 10:23
[2017-06-06 12:00] VITALS: BP 143/89
[2017-06-06 16:00] VITALS: BP 127/72
[2017-06-06] MEDS ORDERED: Tubing IV Secondary IV ONE (17:41)
[2017-06-06] MEDS ORDERED: NS 275ml ONE (17:41)
[2017-06-06 20:00] VITALS: BP 154/97
[2017-06-06] MEDS: cefTRIAXone 2 GM in D5W 110 ML IVPB SCH (20:29)
[2017-06-07] VITALS: BP 151/80
[2017-06-07] MEDS: Vancomycin 1gm/D5W 275ml IVPB SCH ×2 (01:13)
[2017-06-07 04:00] VITALS: BP 150/91
[2017-06-07] MEDS: NovoLOG Insulin Flexpen SUBQ SCH ×4 (06:01→22:00)
[2017-06-07 07:13] LABS: ANION GAP 9 mmol/L (5-15); BASOPHILS % (AUTO) 1.5 % (0.0-2.0); BLOOD UREA NITROGEN 11 mg/dL (7-18); CALCIUM 8.5 MG/DL (8.5-10.1); CARBON DIOXIDE 28 MMOL/L (21-32); CHLORIDE 100 MMOL/L (98-107); EOSINOPHILS % (AUTO) 4.1 % (0.0-3.0); HEMATOCRIT 39.3 % (42.0-52.0); HEMOGLOBIN 13.4 G/DL (14.2-18.0); MEAN CORPUSCULAR VOLUME 86 FL (80-99); MONOCYTES % (AUTO) 9.3 % (1.0-10.0); NEUTROPHILS % (AUTO) 57.2 % (45.0-75.0); PLATELET COUNT 233 K/UL (150-450); POTASSIUM 3.3 MMOL/L (3.5-5.1); RED BLOOD COUNT 4.55 M/UL (4.70-6.10); SODIUM 137 MMOL/L (136-145); WHITE BLOOD COUNT 7.4 K/UL (4.8-10.8)
[2017-06-07 08:00] VITALS: BP 115/64
--- NOTE | 2017-06-07 08:55 | Pulmonology Progress Note ---
Assessment/Plan Assessment/Plan ASSESSMENT R foot cellulitis acute R big toe osteomyelitis diabetic foot ulcer right hallux DM OOC diabetic neuropathy HTN L BKA ETOH abuse hx of smoking PLAN OF CARE MS floor abx ID follows MRI + acute osteo R big toe wound cx +SCON, Enterococci blood cx negative influenza negative podiatry eval appreciated wound care BS management, added Levemir , increase dose and SSI prn, [id number] not at goal BP management added Lisinopril, increase dose, improving replaced K and correct lytes as needed DVT prophylaxis venous Duplex with chronic thrombus SFV LLE PT/OT pain management bowel regimen dc planning per ID can be dc on oral abx, scripts in chart SW for assistance with placement ( homeless, BKA) case discussed and evaluated by supervising physician Subjective Allergies: Coded Allergies: No Known Allergies (Unverified , 11/16/14) All Systems: reviewed and negative except above Subjective afebrile, no leucocytosis no signs of distress denies CP SOB K-3.3 Objective Last 24 Hour Vital Signs Date Time Temp Pulse Resp B/P (MAP) Pulse Ox O2 Delivery O2 Flow Rate FiO2 06/07/17 08:00 98.1 74 18 115/64 96 Room Air 98.1 06/07/17 04:00 97.9 71 19 150/91 97 Room Air 97.9 06/07/17 00:00 98.2 73 19 151/80 96 Room Air 98.2 06/07/17 00:00 98.2 73 19 151/80 96 Room Air 98.2 06/06/17 20:00 98.8 70 20 154/97 96 Room Air 98.8 06/06/17 20:00 98.8 70 20 154/97 96 Room Air 98.8 06/06/17 16:00 97.8 75 18 127/72 94 Room Air 97.8 06/06/17 12:00 97.0 70 18 143/89 97 Room Air 97.0 Intake and Output 06/06/17 06/07/17 19:00 07:00 Intake Total 1491.292 ml 385.000 ml Output Total 1400 ml Balance 91.292 ml 385.000 ml Intake Oral 1400 ml IV Total 91.292 ml 385.000 ml Output Urine Total 1400 ml # Voids 4 4 # Bowel Movements 2 Objective General Appearance: no acute distress HEENT: normocephalic, atraumatic, anicteric Respiratory/Chest: lungs clear, no accessory muscle use Cardiovascular: normal rate, no JVD Abdomen: normal bowel sounds, soft, non tender, non distended Extremities: L BKA, R foot edema, erythema, necrosis [address] toe Neurologic/Psychiatric: abnormal gait, alert, responsive Laboratory Tests 06/06/17 23:15: Vancomycin Level Trough 12.5H 06/07/17 05:55: White Blood Count 7.4, Red Blood Count 4.55L, Hemoglobin 13.4L, Hematocrit 39.3L , Mean Corpuscular Volume 86, Mean Corpuscular Hemoglobin 29.5, Mean Corpuscular Hemoglobin Concent 34.2, Red Cell Distribution Width 12.0, Platelet Count 233, Mean Platelet Volume 10.4H, Neutrophils (%) (Auto) 57.2, Lymphocytes (%) (Auto) 28.0, Monocytes (%) (Auto) 9.3, Eosinophils (%) (Auto) 4.1H, Basophils (%) (Auto) 1.5, Sodium Level 137, Potassium Level 3.3L, Chloride Level 100, Carbon Dioxide Level 28, Anion Gap 9, Blood Urea Nitrogen 11, Creatinine 1.0, Estimat Glomerular Filtration Rate > 60, Glucose Level 198H, Calcium Level 8.5 Current Medications Medications (Trade) Dose Ordered Sig/Caden Route PRN Reason Start Time Stop Time Status Last Admin Dose Admin Acetaminophen (Tylenol) 650 mg Q4H PRN ORAL fever 05/20/17 21:45 06/19/17 21:44 05/21/17 10:25 Ceftriaxone Sodium 2 gm/ Dextrose 110 ml @ 220 mls/hr Q24H IVPB 06/05/17 21:00 06/12/17 20:59 06/06/17 20:29 Clonidine HCl (Catapres Tab) 0.1 mg EVERY 6 HOURS PRN ORAL SBP >160mmHg 05/31/17 17:00 06/30/17 16:59 06/05/17 00:07 Dextrose (Dextrose 50%) STAT PRN IV Hypoglycemia 05/21/17 07:30 06/20/17 07:29 Heparin Sodium (Porcine) (Heparin 5000 units/ml) 5,000 units EVERY 12 HOURS SUBQ 05/21/17 09:00 06/20/17 08:59 06/06/17 20:28 Insulin Aspart (NovoLOG) BEFORE MEALS AND HS SUBQ 05/21/17 08:30 06/20/17 08:29 06/07/17 06:01 Insulin Detemir (Levemir) 12 units Q24H SUBQ 06/07/17 07:30 07/04/17 07:29 Lisinopril (Prinivil) 20 mg DAILY ORAL 06/07/17 09:00 07/04/17 08:59 Nitroglycerin (Ntg) 0.4 mg Every 5 Minutes PRN SL Prn Chest Pain 05/20/17 21:45 06/19/17 21:44 Ondansetron HCl (Zofran) 4 mg Q6H PRN IVP Nausea & Vomiting 05/20/17 21:45 06/19/17 21:44 Polyethylene Glycol (Miralax) 17 gm DAILYPRN PRN ORAL Constipation 05/20/17 21:45 06/19/17 21:44 Sodium Hypochlorite (Dakin's Quarter Strength) 1 applic DAILY TOPIC 05/23/17 09:00 06/22/17 08:59 06/06/17 08:45 Vancomycin HCl (Vanco rx to dose) 1 ea DAILYPRN PRN MISC RX TO DOSE PROTOCOL 05/28/17 17:15 07/02/17 17:14 Vancomycin HCl 1 gm/Dextrose 275 ml @ 183.708 mls/hr Q18H IVPB 06/05/17 12:00 07/02/17 23:59 06/07/17 01:13 Waleska Bhakta NP (Vanchtein) Jun 07, 2017 08:55
[2017-06-07] MEDS: Lisinopril 20mg tab ORAL SCH (09:23)
[2017-06-07] MEDS: Heparin 5000 units/ml inj SUBQ SCH ×2 (09:28→22:01)
[2017-06-07] MEDS: Levemir Flexpen SUBQ SCH (09:31)
[2017-06-07] MEDS: Dakin's 0.125% Soln (Quarter Strength) 16oz TOPIC SCH (09:32)
[2017-06-07 12:08] VITALS: BP 160/96
[2017-06-07 16:00] VITALS: BP 111/89
--- NOTE | 2017-06-07 16:24 | Infectious Diseases Prog Note ---
Assessment/Plan Assessment/Plan The patient is a 66-year-old male with Right foot cellulitis. right big toe. osteo -MRI R foot: Findings suspicious for osteomyelitis of the distal aspect of the first distal phalanx -wound cx E.fecalis ([place] S), CoNS (likely represents colonizers) Fever, SP Normal white blood cells Influenza screening tests : Neg Diabetes. Hyperlipidemia. Hypertension. Left BKA. History of alcohol abuse and smoking until recently. 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 PLAN: On IV vancomycin and Ceftriaxone abx d# 18/42 and Flagyl #10 for R 1st toe OM and foot cellulitis; ok to discharge on PO Bactrim DS 2 tab bid and PO Augmentin 875/125mg PO BId to complete course (Rx in chart) -05/24 SP Cefepime #4 Monitor CBC. Monitor BMP. Monitor Wnd cultures Monitor blood culture. Discussed with RN Subjective Allergies: Coded Allergies: No Known Allergies (Unverified , 11/16/14) Subjective afebrile no leukocytosis bcx neg discharge planning Objective Vital Signs Last 24 Hour Vital Signs Date Time Temp Pulse Resp B/P (MAP) Pulse Ox O2 Delivery O2 Flow Rate FiO2 06/07/17 16:20 160/96 06/07/17 12:08 97.9 82 18 160/96 96 Room Air 97.9 06/07/17 09:23 115/64 06/07/17 08:00 98.1 74 18 115/64 96 Room Air 98.1 06/07/17 04:00 97.9 71 19 150/91 97 Room Air 97.9 06/07/17 00:00 98.2 73 19 151/80 96 Room Air 98.2 06/07/17 00:00 98.2 73 19 151/80 96 Room Air 98.2 06/06/17 20:00 98.8 70 20 154/97 96 Room Air 98.8 06/06/17 20:00 98.8 70 20 154/97 96 Room Air 98.8 Height (Feet): 5 Height (Inches): 7.00 Weight (Pounds): 180 Objective General Appearance: WD/WN HEENT: normocephalic, atraumatic Respiratory/Chest: chest wall non-tender, lungs clear Breasts: no masses Cardiovascular: normal peripheral pulses, regular rhythm Abdomen: normal bowel sounds, soft, non tender Genitourinary: normal external genitalia Extremities: no cyanosis, aka Skin: extensive keratic lesions on leg Laboratory Tests Test 06/06/17 23:15 06/07/17 05:55 Vancomycin Level Trough 12.5 ug/mL (5.0-12.0) H White Blood Count 7.4 K/UL (4.8-10.8) Red Blood Count 4.55 M/UL (4.70-6.10) L Hemoglobin 13.4 G/DL (14.2-18.0) L Hematocrit 39.3 % (42.0-52.0) L Mean Corpuscular Volume 86 FL (80-99) Mean Corpuscular Hemoglobin 29.5 PG (27.0-31.0) Mean Corpuscular Hemoglobin Concent 34.2 G/DL (32.0-36.0) Red Cell Distribution Width 12.0 % (11.6-14.8) Platelet Count 233 K/UL (150-450) Mean Platelet Volume 10.4 FL (6.5-10.1) H Neutrophils (%) (Auto) 57.2 % (45.0-75.0) Lymphocytes (%) (Auto) 28.0 % (20.0-45.0) Monocytes (%) (Auto) 9.3 % (1.0-10.0) Eosinophils (%) (Auto) 4.1 % (0.0-3.0) H Basophils (%) (Auto) 1.5 % (0.0-2.0) Sodium Level 137 MMOL/L (136-145) Potassium Level 3.3 MMOL/L (3.5-5.1) L Chloride Level 100 MMOL/L (98-107) Carbon Dioxide Level 28 MMOL/L (21-32) Anion Gap 9 mmol/L (5-15) Blood Urea Nitrogen 11 mg/dL (7-18) Creatinine 1.0 MG/DL (0.55-1.30) Estimat Glomerular Filtration Rate > 60 mL/min (>60) Glucose Level 198 MG/DL (74-106) H Calcium Level 8.5 MG/DL (8.5-10.1) Current Medications Medications (Trade) Dose Ordered Sig/Caden Route PRN Reason Start Time Stop Time Status Last Admin Dose Admin Acetaminophen (Tylenol) 650 mg Q4H PRN ORAL fever 05/20/17 21:45 06/19/17 21:44 05/21/17 10:25 Ceftriaxone Sodium 2 gm/ Dextrose 110 ml @ 220 mls/hr Q24H IVPB 06/05/17 21:00 06/12/17 20:59 06/06/17 20:29 Clonidine HCl (Catapres Tab) 0.1 mg EVERY 6 HOURS PRN ORAL SBP >160mmHg 05/31/17 17:00 06/30/17 16:59 06/07/17 16:20 Dextrose (Dextrose 50%) STAT PRN IV Hypoglycemia 05/21/17 07:30 06/20/17 07:29 Heparin Sodium (Porcine) (Heparin 5000 units/ml) 5,000 units EVERY 12 HOURS SUBQ 05/21/17 09:00 06/20/17 08:59 06/07/17 09:28 Insulin Aspart (NovoLOG) BEFORE MEALS AND HS SUBQ 05/21/17 08:30 06/20/17 08:29 06/07/17 16:22 Insulin Detemir (Levemir) 12 units Q24H SUBQ 06/07/17 07:30 07/04/17 07:29 06/07/17 09:31 Lisinopril (Prinivil) 20 mg DAILY ORAL 06/07/17 09:00 07/04/17 08:59 06/07/17 09:23 Metronidazole (Flagyl) 500 mg Q6HR ORAL 06/07/17 18:00 06/14/17 17:59 Nitroglycerin (Ntg) 0.4 mg Every 5 Minutes PRN SL Prn Chest Pain 05/20/17 21:45 06/19/17 21:44 Ondansetron HCl (Zofran) 4 mg Q6H PRN IVP Nausea & Vomiting 05/20/17 21:45 06/19/17 21:44 Polyethylene Glycol (Miralax) 17 gm DAILYPRN PRN ORAL Constipation 05/20/17 21:45 06/19/17 21:44 Sodium Hypochlorite (Dakin's Quarter Strength) 1 applic DAILY TOPIC 05/23/17 09:00 06/22/17 08:59 06/07/17 09:32 Vancomycin HCl (Vanco rx to dose) 1 ea DAILYPRN PRN MISC RX TO DOSE PROTOCOL 05/28/17 17:15 07/02/17 17:14 Vancomycin HCl/ Dextrose 250 ml @ 166.667 mls/hr Q18H IVPB 06/07/17 18:00 06/12/17 17:59 Dena Frank M.D. Jun 07, 2017 16:24
[2017-06-07] MEDS: Vancomycin 1250mg/D5W 250ml IVPB SCH (17:22)
[2017-06-07] MEDS: metroNIDAZOLE 500mg tab ORAL SCH (17:22)
[2017-06-07 20:00] VITALS: BP 184/92
[2017-06-07] MEDS: cefTRIAXone 2 GM in D5W 110 ML IVPB SCH (21:58)
[2017-06-08] VITALS (7 sets, daily range): BP systolic 104–160; BP diastolic 58–92
[2017-06-08] MEDS: metroNIDAZOLE 500mg tab ORAL SCH ×4 (00:51→16:47)
[2017-06-08] MEDS: NovoLOG Insulin Flexpen SUBQ SCH ×4 (06:12→21:01)
[2017-06-08] MEDS: Levemir Flexpen SUBQ SCH (06:12)
[2017-06-08 07:11] LABS: ANION GAP 10 mmol/L (5-15); BLOOD UREA NITROGEN 19 mg/dL (7-18); CALCIUM 8.6 MG/DL (8.5-10.1); CARBON DIOXIDE 28 MMOL/L (21-32); CHLORIDE 102 MMOL/L (98-107); CREATININE 1.2 MG/DL (0.55-1.30); POTASSIUM 3.7 MMOL/L (3.5-5.1); SODIUM 140 MMOL/L (136-145)
[2017-06-08] MEDS: Lisinopril 20mg tab ORAL SCH (08:54)
[2017-06-08] MEDS: Dakin's 0.125% Soln (Quarter Strength) 16oz TOPIC SCH (08:54)
[2017-06-08] MEDS: Heparin 5000 units/ml inj SUBQ SCH ×2 (08:55→21:00)
--- NOTE | 2017-06-08 10:19 | Pulmonology Progress Note ---
Assessment/Plan Assessment/Plan ASSESSMENT R foot cellulitis acute R big toe osteomyelitis diabetic foot ulcer right hallux DM OOC diabetic neuropathy HTN L BKA ETOH abuse hx of smoking PLAN OF CARE MS floor abx ID follows MRI + acute osteo R big toe wound cx +SCON, Enterococci blood cx negative influenza negative podiatry eval appreciated wound care BS management, added Levemir , increase dose and SSI prn, [id number] not at goal BP management added Lisinopril, increase dose, improving replaced K and correct lytes as needed DVT prophylaxis venous Duplex with chronic thrombus SFV LLE PT/OT pain management bowel regimen dc planning per ID can be dc on oral abx, scripts in chart SW for assistance with placement ( homeless, BKA) case discussed and evaluated by supervising physician Subjective Allergies: Coded Allergies: No Known Allergies (Unverified , 11/16/14) Subjective afebrile, no leucocytosis no signs of distress denies CP SOB awaiting for placement Objective Last 24 Hour Vital Signs Date Time Temp Pulse Resp B/P (MAP) Pulse Ox O2 Delivery O2 Flow Rate FiO2 06/08/17 08:54 135/75 06/08/17 08:00 96.3 78 18 135/75 95 96.3 06/08/17 04:00 97.8 72 18 145/92 97 97.8 06/08/17 00:00 97.8 61 17 122/58 95 97.8 06/07/17 20:00 98.1 70 18 184/92 98 98.1 06/07/17 16:20 160/96 06/07/17 16:00 97.8 72 19 111/89 97 Room Air 97.8 06/07/17 12:08 97.9 82 18 160/96 96 Room Air 97.9 Intake and Output 06/07/17 06/08/17 19:00 07:00 Intake Total 960 ml 500 ml Output Total 1500 ml 1500 ml Balance -540 ml -1000 ml Intake Oral 960 ml 390 ml IV Total 110 ml Output Urine Total 1500 ml 1500 ml # Bowel Movements 2 Objective General Appearance: no acute distress HEENT: normocephalic, atraumatic, anicteric Respiratory/Chest: lungs clear, no accessory muscle use Cardiovascular: normal rate, no JVD Abdomen: normal bowel sounds, soft, non tender, non distended Extremities: L BKA, R foot edema, erythema, necrosis [address] toe Neurologic/Psychiatric: abnormal gait, alert, responsive Laboratory Tests 06/08/17 05:30: Sodium Level 140, Potassium Level 3.7, Chloride Level 102, Carbon Dioxide Level 28, Anion Gap 10, Blood Urea Nitrogen 19H, Creatinine 1.2, Estimat Glomerular Filtration Rate > 60, Glucose Level 208H, Calcium Level 8.6 Current Medications Medications (Trade) Dose Ordered Sig/Caden Route PRN Reason Start Time Stop Time Status Last Admin Dose Admin Acetaminophen (Tylenol) 650 mg Q4H PRN ORAL fever 05/20/17 21:45 06/19/17 21:44 05/21/17 10:25 Ceftriaxone Sodium 2 gm/ Dextrose 110 ml @ 220 mls/hr Q24H IVPB 06/05/17 21:00 06/12/17 20:59 06/07/17 21:58 Clonidine HCl (Catapres Tab) 0.1 mg EVERY 6 HOURS PRN ORAL SBP >160mmHg 05/31/17 17:00 06/30/17 16:59 06/07/17 16:20 Dextrose (Dextrose 50%) STAT PRN IV Hypoglycemia 05/21/17 07:30 06/20/17 07:29 Heparin Sodium (Porcine) (Heparin 5000 units/ml) 5,000 units EVERY 12 HOURS SUBQ 05/21/17 09:00 06/20/17 08:59 06/08/17 08:55 Insulin Aspart (NovoLOG) BEFORE MEALS AND HS SUBQ 05/21/17 08:30 06/20/17 08:29 06/08/17 06:12 Insulin Detemir (Levemir) 12 units Q24H SUBQ 06/07/17 07:30 07/04/17 07:29 06/08/17 06:12 Lisinopril (Prinivil) 20 mg DAILY ORAL 06/07/17 09:00 07/04/17 08:59 06/08/17 08:54 Metronidazole (Flagyl) 500 mg Q6HR ORAL 06/07/17 18:00 06/14/17 17:59 06/08/17 06:10 Nitroglycerin (Ntg) 0.4 mg Every 5 Minutes PRN SL Prn Chest Pain 05/20/17 21:45 06/19/17 21:44 Ondansetron HCl (Zofran) 4 mg Q6H PRN IVP Nausea & Vomiting 05/20/17 21:45 06/19/17 21:44 Polyethylene Glycol (Miralax) 17 gm DAILYPRN PRN ORAL Constipation 05/20/17 21:45 06/19/17 21:44 Sodium Hypochlorite (Dakin's Quarter Strength) 1 applic DAILY TOPIC 05/23/17 09:00 06/22/17 08:59 06/08/17 08:54 Vancomycin HCl (Vanco rx to dose) 1 ea DAILYPRN PRN MISC RX TO DOSE PROTOCOL 05/28/17 17:15 07/02/17 17:14 Vancomycin HCl/ Dextrose 250 ml @ 166.667 mls/hr Q18H IVPB 06/07/17 18:00 06/12/17 17:59 06/07/17 17:22 Yony (Zeeshan)Waleska NP Jun 08, 2017 10:19
[2017-06-08] MEDS: Vancomycin 1250mg/D5W 250ml IVPB SCH (12:45)
[2017-06-08] MEDS: cefTRIAXone 2 GM in D5W 110 ML IVPB SCH (20:52)
[2017-06-09] MEDS: metroNIDAZOLE 500mg tab ORAL SCH ×4 (00:07→17:04)
[2017-06-09 03:51] VITALS: BP 147/79
[2017-06-09] MEDS: NovoLOG Insulin Flexpen SUBQ SCH ×7 (05:49→20:52)
[2017-06-09] MEDS: Vancomycin 1250mg/D5W 250ml IVPB SCH (05:51)
[2017-06-09 08:33] VITALS: BP 138/78
[2017-06-09] MEDS: Heparin 5000 units/ml inj SUBQ SCH ×2 (08:42→20:48)
[2017-06-09] MEDS: Lisinopril 20mg tab ORAL SCH (08:42)
[2017-06-09] MEDS: Levemir Flexpen SUBQ SCH ×2 (08:42→10:58)
[2017-06-09] MEDS: Dakin's 0.125% Soln (Quarter Strength) 16oz TOPIC SCH (08:42)
--- NOTE | 2017-06-09 09:40 | Pulmonology Progress Note ---
Assessment/Plan Assessment/Plan ASSESSMENT R foot cellulitis acute R big toe osteomyelitis diabetic foot ulcer right hallux DM OOC diabetic neuropathy HTN L BKA ETOH abuse hx of smoking PLAN OF CARE MS floor abx ID follows MRI + acute osteo R big toe wound cx +SCON, Enterococci blood cx negative influenza negative podiatry eval appreciated wound care BS management, added Levemir , increased dose , now added premeal Novolog , and SSI prn, [id number] not at goal BP management added Lisinopril, increase dose, improving replaced K and correct lytes as needed DVT prophylaxis venous Duplex with chronic thrombus SFV LLE PT/OT pain management bowel regimen dc planning per ID can be dc on oral abx, scripts in chart SW for assistance with placement ( homeless, BKA) case discussed and evaluated by supervising physician Subjective Allergies: Coded Allergies: No Known Allergies (Unverified , 11/16/14) Subjective afebrile, no leucocytosis no signs of distress denies CP SOB awaiting for placement Objective Last 24 Hour Vital Signs Date Time Temp Pulse Resp B/P (MAP) Pulse Ox O2 Delivery O2 Flow Rate FiO2 06/09/17 08:33 97.9 83 20 138/78 98 97.9 06/09/17 03:51 97.7 73 20 147/79 94 Room Air 97.7 06/08/17 23:30 97.6 68 18 156/90 97 97.6 06/08/17 23:30 97 Room Air 06/08/17 20:00 97.7 70 18 160/91 97 97.7 06/08/17 20:00 97 Room Air 06/08/17 15:48 97.7 77 18 104/81 97 97.7 06/08/17 12:00 97.8 77 14 155/91 96 97.8 Intake and Output 06/08/17 06/09/17 19:00 07:00 Intake Total 730 ml 110 ml Output Total 1150 ml Balance -420 ml 110 ml Intake Oral 730 ml IV Total 110 ml Output Urine Total 1150 ml # Voids 3 # Bowel Movements 1 1 Objective General Appearance: no acute distress HEENT: normocephalic, atraumatic, anicteric Respiratory/Chest: lungs clear, no accessory muscle use Cardiovascular: normal rate, no JVD Abdomen: normal bowel sounds, soft, non tender, non distended Extremities: L BKA, R foot edema, erythema, necrosis 1 st toe Neurologic/Psychiatric: abnormal gait, alert, responsive Current Medications Medications (Trade) Dose Ordered Sig/Caden Route PRN Reason Start Time Stop Time Status Last Admin Dose Admin Acetaminophen (Tylenol) 650 mg Q4H PRN ORAL fever 05/20/17 21:45 06/19/17 21:44 05/21/17 10:25 Ceftriaxone Sodium 2 gm/ Dextrose 110 ml @ 220 mls/hr Q24H IVPB 06/05/17 21:00 06/12/17 20:59 06/08/17 20:52 Clonidine HCl (Catapres Tab) 0.1 mg EVERY 6 HOURS PRN ORAL SBP >160mmHg 05/31/17 17:00 06/30/17 16:59 06/07/17 16:20 Dextrose (Dextrose 50%) STAT PRN IV Hypoglycemia 05/21/17 07:30 06/20/17 07:29 Heparin Sodium (Porcine) (Heparin 5000 units/ml) 5,000 units EVERY 12 HOURS SUBQ 05/21/17 09:00 06/20/17 08:59 06/08/17 21:00 Insulin Aspart (NovoLOG) BEFORE MEALS AND HS SUBQ 05/21/17 08:30 06/20/17 08:29 06/09/17 05:49 Insulin Detemir (Levemir) 12 units Q24H SUBQ 06/07/17 07:30 07/04/17 07:29 06/08/17 06:12 Lisinopril (Prinivil) 20 mg DAILY ORAL 06/07/17 09:00 07/04/17 08:59 06/08/17 08:54 Metronidazole (Flagyl) 500 mg Q6HR ORAL 06/07/17 18:00 06/14/17 17:59 06/09/17 05:51 Nitroglycerin (Ntg) 0.4 mg Every 5 Minutes PRN SL Prn Chest Pain 05/20/17 21:45 06/19/17 21:44 Ondansetron HCl (Zofran) 4 mg Q6H PRN IVP Nausea & Vomiting 05/20/17 21:45 06/19/17 21:44 Polyethylene Glycol (Miralax) 17 gm DAILYPRN PRN ORAL Constipation 05/20/17 21:45 06/19/17 21:44 Sodium Hypochlorite (Dakin's Quarter Strength) 1 applic DAILY TOPIC 05/23/17 09:00 06/22/17 08:59 06/09/17 08:42 Vancomycin HCl (Vanco rx to dose) 1 ea DAILYPRN PRN MISC RX TO DOSE PROTOCOL 05/28/17 17:15 07/02/17 17:14 Vancomycin HCl/ Dextrose 250 ml @ 166.667 mls/hr Q18H IVPB 06/07/17 18:00 06/12/17 17:59 06/09/17 05:51 Yony (Zeeshan)Waleska NP Jun 09, 2017 09:40
[2017-06-09 12:00] VITALS: BP 151/94
--- NOTE | 2017-06-09 13:41 | Infectious Diseases Prog Note ---
Assessment/Plan Assessment/Plan The patient is a 66-year-old male with Right foot cellulitis. right big toe. osteo -MRI R foot: Findings suspicious for osteomyelitis of the distal aspect of the first distal phalanx -wound cx E.fecalis ([place] S), CoNS (likely represents colonizers) Fever, SP Normal white blood cells Influenza screening tests : Neg Diabetes. Hyperlipidemia. Hypertension. Left BKA. History of alcohol abuse and smoking until recently. 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 PLAN: On IV vancomycin and Ceftriaxone abx d# 20/ and Flagyl #12 for R 1st toe OM and foot cellulitis; ok to discharge on PO Bactrim DS 2 tab bid and PO Augmentin 875/125mg PO BId to complete course (Rx in chart) -05/24 SP Cefepime #4 Monitor CBC. Monitor BMP. Monitor Wnd cultures Monitor blood culture. Discussed with RN Subjective Allergies: Coded Allergies: No Known Allergies (Unverified , 11/16/14) Subjective afebrile no leukocytosis bcx neg discharge planning Objective Vital Signs Last 24 Hour Vital Signs Date Time Temp Pulse Resp B/P (MAP) Pulse Ox O2 Delivery O2 Flow Rate FiO2 06/09/17 12:00 97.0 81 20 151/94 95 97.0 06/09/17 08:33 97.9 83 20 138/78 98 97.9 06/09/17 03:51 97.7 73 20 147/79 94 Room Air 97.7 06/08/17 23:30 97.6 68 18 156/90 97 97.6 06/08/17 23:30 97 Room Air 06/08/17 20:00 97.7 70 18 160/91 97 97.7 06/08/17 20:00 97 Room Air 06/08/17 15:48 97.7 77 18 104/81 97 97.7 Height (Feet): 5 Height (Inches): 7.00 Weight (Pounds): 180 Objective General Appearance: WD/WN HEENT: normocephalic, atraumatic Respiratory/Chest: chest wall non-tender, lungs clear Breasts: no masses Cardiovascular: normal peripheral pulses, regular rhythm Abdomen: normal bowel sounds, soft, non tender Genitourinary: normal external genitalia Extremities: no cyanosis, aka Skin: extensive keratic lesions on leg Current Medications Medications (Trade) Dose Ordered Sig/Caden Route PRN Reason Start Time Stop Time Status Last Admin Dose Admin Acetaminophen (Tylenol) 650 mg Q4H PRN ORAL fever 05/20/17 21:45 06/19/17 21:44 05/21/17 10:25 Ceftriaxone Sodium 2 gm/ Dextrose 110 ml @ 220 mls/hr Q24H IVPB 06/05/17 21:00 06/12/17 20:59 06/08/17 20:52 Clonidine HCl (Catapres Tab) 0.1 mg EVERY 6 HOURS PRN ORAL SBP >160mmHg 05/31/17 17:00 06/30/17 16:59 06/07/17 16:20 Dextrose (Dextrose 50%) STAT PRN IV Hypoglycemia 05/21/17 07:30 06/20/17 07:29 Heparin Sodium (Porcine) (Heparin 5000 units/ml) 5,000 units EVERY 12 HOURS SUBQ 05/21/17 09:00 06/20/17 08:59 06/08/17 21:00 Insulin Aspart (NovoLOG) BEFORE MEALS AND HS SUBQ 05/21/17 08:30 06/20/17 08:29 06/09/17 11:56 Insulin Aspart (NovoLOG) 3 units NOVOTIAC SUBQ 06/09/17 11:50 07/09/17 11:49 06/09/17 11:57 Insulin Detemir (Levemir) 12 units Q24H SUBQ 06/07/17 07:30 07/04/17 07:29 06/09/17 10:58 Lisinopril (Prinivil) 20 mg DAILY ORAL 06/07/17 09:00 07/04/17 08:59 06/08/17 08:54 Metronidazole (Flagyl) 500 mg Q6HR ORAL 06/07/17 18:00 06/14/17 17:59 06/09/17 11:53 Nitroglycerin (Ntg) 0.4 mg Every 5 Minutes PRN SL Prn Chest Pain 05/20/17 21:45 06/19/17 21:44 Ondansetron HCl (Zofran) 4 mg Q6H PRN IVP Nausea & Vomiting 05/20/17 21:45 06/19/17 21:44 Polyethylene Glycol (Miralax) 17 gm DAILYPRN PRN ORAL Constipation 05/20/17 21:45 06/19/17 21:44 Sodium Hypochlorite (Dakin's Quarter Strength) 1 applic DAILY TOPIC 05/23/17 09:00 06/22/17 08:59 06/09/17 08:42 Vancomycin HCl (Vanco rx to dose) 1 ea DAILYPRN PRN MISC RX TO DOSE PROTOCOL 05/28/17 17:15 07/02/17 17:14 Vancomycin HCl/ Dextrose 250 ml @ 166.667 mls/hr Q18H IVPB 06/07/17 18:00 06/12/17 17:59 06/09/17 05:51 Dena Frank M.D. Jun 09, 2017 13:41
[2017-06-09 16:00] VITALS: BP 145/83
[2017-06-09 19:51] VITALS: BP 130/72
[2017-06-09] MEDS: cefTRIAXone 2 GM in D5W 110 ML IVPB SCH (20:46)
[2017-06-10 00:36] VITALS: BP 132/71
[2017-06-10] MEDS: Vancomycin 1250mg/D5W 250ml IVPB SCH ×2 (00:36→17:19)
[2017-06-10] MEDS: metroNIDAZOLE 500mg tab ORAL SCH ×5 (00:36→23:01)
[2017-06-10 04:00] VITALS: BP 133/58
[2017-06-10] MEDS: NovoLOG Insulin Flexpen SUBQ SCH ×7 (06:02→20:41)
[2017-06-10] MEDS: Levemir Flexpen SUBQ SCH (07:42)
[2017-06-10] MEDS: Heparin 5000 units/ml inj SUBQ SCH ×2 (09:00→20:41)
[2017-06-10] MEDS: Dakin's 0.125% Soln (Quarter Strength) 16oz TOPIC SCH (09:00)
[2017-06-10] MEDS: Lisinopril 20mg tab ORAL SCH (09:00)
--- NOTE | 2017-06-10 09:45 | Pulmonology Progress Note ---
Assessment/Plan Assessment/Plan ASSESSMENT R foot cellulitis acute R big toe osteomyelitis diabetic foot ulcer right hallux DM OOC diabetic neuropathy HTN L BKA ETOH abuse hx of smoking PLAN OF CARE MS floor abx ID follows MRI + acute osteo R big toe wound cx +SCON, Enterococci blood cx negative influenza negative podiatry eval appreciated wound care BS management, added Levemir , increased dose , now added premeal Novolog , and SSI prn, [id number] not at goal BP management added Lisinopril, increase dose, improving replaced K and correct lytes as needed DVT prophylaxis venous Duplex with chronic thrombus SFV LLE PT/OT pain management bowel regimen dc planning per ID can be dc on oral abx, scripts in chart SW for assistance with placement ( homeless, BKA) awaiting for placement case discussed and evaluated by supervising physician Subjective Allergies: Coded Allergies: No Known Allergies (Unverified , 11/16/14) Subjective afebrile, no leucocytosis no signs of distress denies CP SOB awaiting for placement Objective Last 24 Hour Vital Signs Date Time Temp Pulse Resp B/P (MAP) Pulse Ox O2 Delivery O2 Flow Rate FiO2 06/10/17 04:00 97.3 73 20 133/58 95 Room Air 97.3 06/10/17 00:36 96 Room Air 06/10/17 00:36 97.7 73 20 132/71 96 Room Air 97.7 06/09/17 19:51 97.7 71 20 130/72 99 Room Air 97.7 06/09/17 19:51 99 Room Air 06/09/17 16:01 Room Air 06/09/17 16:00 97.7 76 20 145/83 96 97.7 06/09/17 12:01 Room Air 06/09/17 12:00 97.0 81 20 151/94 95 97.0 Intake and Output 06/09/17 06/10/17 19:00 07:00 Intake Total 740 ml 610.000 ml Balance 740 ml 610.000 ml Intake Oral 740 ml 360 ml IV Total 250.000 ml # Voids 2 3 Objective General Appearance: no acute distress HEENT: normocephalic, atraumatic, anicteric Respiratory/Chest: lungs clear, no accessory muscle use Cardiovascular: normal rate, no JVD Abdomen: normal bowel sounds, soft, non tender, non distended Extremities: L BKA, R foot edema, erythema, necrosis 1 st toe Neurologic/Psychiatric: abnormal gait, alert, responsive Current Medications Medications (Trade) Dose Ordered Sig/Caden Route PRN Reason Start Time Stop Time Status Last Admin Dose Admin Acetaminophen (Tylenol) 650 mg Q4H PRN ORAL fever 05/20/17 21:45 06/19/17 21:44 05/21/17 10:25 Ceftriaxone Sodium 2 gm/ Dextrose 110 ml @ 220 mls/hr Q24H IVPB 06/05/17 21:00 06/12/17 20:59 06/09/17 20:46 Clonidine HCl (Catapres Tab) 0.1 mg EVERY 6 HOURS PRN ORAL SBP >160mmHg 05/31/17 17:00 06/30/17 16:59 06/07/17 16:20 Dextrose (Dextrose 50%) STAT PRN IV Hypoglycemia 05/21/17 07:30 06/20/17 07:29 Heparin Sodium (Porcine) (Heparin 5000 units/ml) 5,000 units EVERY 12 HOURS SUBQ 05/21/17 09:00 06/20/17 08:59 06/09/17 20:48 Insulin Aspart (NovoLOG) BEFORE MEALS AND HS SUBQ 05/21/17 08:30 06/20/17 08:29 06/10/17 06:04 Insulin Aspart (NovoLOG) 3 units NOVOTIAC SUBQ 06/09/17 11:50 07/09/17 11:49 06/10/17 06:02 Insulin Detemir (Levemir) 12 units Q24H SUBQ 06/07/17 07:30 07/04/17 07:29 06/10/17 07:42 Lisinopril (Prinivil) 20 mg DAILY ORAL 06/07/17 09:00 07/04/17 08:59 06/08/17 08:54 Metronidazole (Flagyl) 500 mg Q6HR ORAL 06/07/17 18:00 06/14/17 17:59 06/10/17 05:59 Nitroglycerin (Ntg) 0.4 mg Every 5 Minutes PRN SL Prn Chest Pain 05/20/17 21:45 06/19/17 21:44 Ondansetron HCl (Zofran) 4 mg Q6H PRN IVP Nausea & Vomiting 05/20/17 21:45 06/19/17 21:44 Polyethylene Glycol (Miralax) 17 gm DAILYPRN PRN ORAL Constipation 05/20/17 21:45 06/19/17 21:44 Sodium Hypochlorite (Dakin's Quarter Strength) 1 applic DAILY TOPIC 05/23/17 09:00 06/22/17 08:59 06/09/17 08:42 Vancomycin HCl (Vanco rx to dose) 1 ea DAILYPRN PRN MISC RX TO DOSE PROTOCOL 05/28/17 17:15 07/02/17 17:14 Vancomycin HCl/ Dextrose 250 ml @ 166.667 mls/hr Q18H IVPB 06/07/17 18:00 06/12/17 17:59 06/10/17 00:36 Yony Lora)Waleska NP Jun 10, 2017 09:45
[2017-06-10 12:00] VITALS: BP 162/96
[2017-06-10 16:00] VITALS: BP 125/68
[2017-06-10 20:00] VITALS: BP 150/90
[2017-06-10] MEDS: cefTRIAXone 2 GM in D5W 110 ML IVPB SCH (21:51)
[2017-06-11] VITALS: BP 149/74
[2017-06-11 04:25] VITALS: BP 130/70
[2017-06-11] MEDS: metroNIDAZOLE 500mg tab ORAL SCH ×3 (05:14→17:10)
[2017-06-11] MEDS: NovoLOG Insulin Flexpen SUBQ SCH ×7 (05:54→20:47)
[2017-06-11 06:21] LABS: BASOPHILS % (AUTO) 1.6 % (0.0-2.0); EOSINOPHILS % (AUTO) 5.3 % (0.0-3.0); HEMATOCRIT 39.4 % (42.0-52.0); HEMOGLOBIN 12.9 G/DL (14.2-18.0); LYMPHOCYTES % (AUTO) 27.2 % (20.0-45.0); MEAN CORPUSCULAR VOLUME 87 FL (80-99); NEUTROPHILS % (AUTO) 55.9 % (45.0-75.0); PLATELET COUNT 221 K/UL (150-450); RED BLOOD COUNT 4.53 M/UL (4.70-6.10); RED CELL DISTRIBUTION WIDTH 12.1 % (11.6-14.8); WHITE BLOOD COUNT 7.3 K/UL (4.8-10.8)
[2017-06-11 06:32] LABS: ANION GAP 7 mmol/L (5-15); BLOOD UREA NITROGEN 20 mg/dL (7-18); CARBON DIOXIDE 31 MMOL/L (21-32); CHLORIDE 101 MMOL/L (98-107); CREATININE 1.3 MG/DL (0.55-1.30); SODIUM 139 MMOL/L (136-145)
[2017-06-11] MEDS: Levemir Flexpen SUBQ SCH (07:36)
[2017-06-11] MEDS: Lisinopril 20mg tab ORAL SCH (08:23)
[2017-06-11] MEDS: Dakin's 0.125% Soln (Quarter Strength) 16oz TOPIC SCH (08:24)
[2017-06-11] MEDS: Heparin 5000 units/ml inj SUBQ SCH ×2 (08:27→20:48)
[2017-06-11 08:53] VITALS: BP 167/96
--- NOTE | 2017-06-11 10:31 | Pulmonology Progress Note ---
Assessment/Plan Assessment/Plan ASSESSMENT R foot cellulitis acute R big toe osteomyelitis diabetic foot ulcer right hallux DM OOC diabetic neuropathy HTN L BKA ETOH abuse hx of smoking PLAN OF CARE MS floor abx ID follows MRI + acute osteo R big toe wound cx +SCON, Enterococci blood cx negative influenza negative podiatry eval appreciated wound care BS management, added Levemir , increased dose , now added premeal Novolog , and SSI prn, [id number] not at goal BP management added Lisinopril, increase dose, improving replaced K and correct lytes as needed DVT prophylaxis venous Duplex with chronic thrombus SFV LLE PT/OT pain management bowel regimen dc planning per ID can be dc on oral abx, scripts in chart SW for assistance with placement ( homeless, BKA) awaiting for placement case discussed and evaluated by supervising physician Subjective Allergies: Coded Allergies: No Known Allergies (Unverified , 11/16/14) Subjective afebrile, no leucocytosis no signs of distress denies CP SOB awaiting for placement challenging Objective Last 24 Hour Vital Signs Date Time Temp Pulse Resp B/P (MAP) Pulse Ox O2 Delivery O2 Flow Rate FiO2 06/11/17 08:53 98.2 77 15 167/96 96 98.2 06/11/17 08:23 167/96 06/11/17 04:25 97.5 78 17 130/70 97 97.5 06/11/17 00:00 98.7 68 18 149/74 98 98.7 06/10/17 20:00 98.8 76 18 150/90 98 98.8 06/10/17 16:01 Room Air 06/10/17 16:00 98.1 76 18 125/68 95 98.1 06/10/17 13:56 162/96 06/10/17 12:01 Room Air 06/10/17 12:00 97.9 79 20 162/96 96 97.9 Intake and Output 06/10/17 06/11/17 19:00 07:00 Intake Total 575 ml 120 ml Output Total 100 ml Balance 575 ml 20 ml Intake Oral 575 ml 120 ml Output Urine Total 100 ml # Voids 3 2 # Bowel Movements 2 1 Objective General Appearance: no acute distress HEENT: normocephalic, atraumatic, anicteric Respiratory/Chest: lungs clear, no accessory muscle use Cardiovascular: normal rate, no JVD Abdomen: normal bowel sounds, soft, non tender, non distended Extremities: L BKA, R foot edema, erythema, necrosis 1 st toe Neurologic/Psychiatric: abnormal gait, alert, responsive Laboratory Tests 06/11/17 05:25: White Blood Count 7.3, Red Blood Count 4.53L, Hemoglobin 12.9L, Hematocrit 39.4L , Mean Corpuscular Volume 87, Mean Corpuscular Hemoglobin 28.4, Mean Corpuscular Hemoglobin Concent 32.6, Red Cell Distribution Width 12.1, Platelet Count 221, Mean Platelet Volume 10.9H, Neutrophils (%) (Auto) 55.9, Lymphocytes (%) (Auto) 27.2, Monocytes (%) (Auto) 10.0, Eosinophils (%) (Auto) 5.3H, Basophils (%) (Auto) 1.6, Sodium Level 139, Potassium Level 4.0, Chloride Level 101, Carbon Dioxide Level 31, Anion Gap 7, Blood Urea Nitrogen 20H, Creatinine 1.3, Estimat Glomerular Filtration Rate 55.1, Glucose Level 242H, Calcium Level 9.0 Current Medications Medications (Trade) Dose Ordered Sig/Caden Route PRN Reason Start Time Stop Time Status Last Admin Dose Admin Acetaminophen (Tylenol) 650 mg Q4H PRN ORAL fever 05/20/17 21:45 06/19/17 21:44 05/21/17 10:25 Ceftriaxone Sodium 2 gm/ Dextrose 110 ml @ 220 mls/hr Q24H IVPB 06/05/17 21:00 06/12/17 20:59 06/10/17 21:51 Clonidine HCl (Catapres Tab) 0.1 mg EVERY 6 HOURS PRN ORAL SBP >160mmHg 05/31/17 17:00 06/30/17 16:59 06/10/17 13:56 Dextrose (Dextrose 50%) STAT PRN IV Hypoglycemia 05/21/17 07:30 06/20/17 07:29 Heparin Sodium (Porcine) (Heparin 5000 units/ml) 5,000 units EVERY 12 HOURS SUBQ 05/21/17 09:00 06/20/17 08:59 06/11/17 08:27 Insulin Aspart (NovoLOG) BEFORE MEALS AND HS SUBQ 05/21/17 08:30 06/20/17 08:29 06/11/17 05:54 Insulin Aspart (NovoLOG) 3 units NOVOTIAC SUBQ 06/09/17 11:50 07/09/17 11:49 06/11/17 05:56 Insulin Detemir (Levemir) 12 units Q24H SUBQ 06/07/17 07:30 07/04/17 07:29 06/11/17 07:36 Lisinopril (Prinivil) 20 mg DAILY ORAL 06/07/17 09:00 07/04/17 08:59 06/11/17 08:23 Metronidazole (Flagyl) 500 mg Q6HR ORAL 06/07/17 18:00 06/14/17 17:59 06/11/17 05:14 Nitroglycerin (Ntg) 0.4 mg Every 5 Minutes PRN SL Prn Chest Pain 05/20/17 21:45 06/19/17 21:44 Ondansetron HCl (Zofran) 4 mg Q6H PRN IVP Nausea & Vomiting 05/20/17 21:45 06/19/17 21:44 Polyethylene Glycol (Miralax) 17 gm DAILYPRN PRN ORAL Constipation 05/20/17 21:45 06/19/17 21:44 Sodium Hypochlorite (Dakin's Quarter Strength) 1 applic DAILY TOPIC 05/23/17 09:00 06/22/17 08:59 06/11/17 08:24 Vancomycin HCl (Vanco rx to dose) 1 ea DAILYPRN PRN MISC RX TO DOSE PROTOCOL 05/28/17 17:15 07/02/17 17:14 Vancomycin HCl/ Dextrose 250 ml @ 166.667 mls/hr Q18H IVPB 06/07/17 18:00 06/12/17 17:59 06/10/17 17:19 Yony Lora)Waleska NP Jun 11, 2017 10:31
[2017-06-11] MEDS: Vancomycin 1250mg/D5W 250ml IVPB SCH (12:10)
[2017-06-11 12:18] VITALS: BP 131/78
--- NOTE | 2017-06-11 15:04 | Infectious Diseases Prog Note ---
Assessment/Plan Assessment/Plan The patient is a 66-year-old male with Right foot cellulitis. right big toe. osteo -MRI R foot: Findings suspicious for osteomyelitis of the distal aspect of the first distal phalanx -wound cx E.fecalis ([place] S), CoNS (likely represents colonizers) Fever, SP Normal white blood cells Influenza screening tests : Neg Diabetes. Hyperlipidemia. Hypertension. Left BKA. History of alcohol abuse and smoking until recently. 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 PLAN: On IV vancomycin and Ceftriaxone abx d# 22/42 and Flagyl #14 for R 1st toe OM and foot cellulitis; ok to discharge on PO Bactrim DS 2 tab bid and PO Augmentin 875/125mg PO BId to complete course (Rx in chart) -05/24 SP Cefepime #4 Monitor CBC. Monitor BMP. Monitor Wnd cultures Monitor blood culture. Discussed with RN Subjective Allergies: Coded Allergies: No Known Allergies (Unverified , 11/16/14) Subjective afebrile no leukocytosis bcx neg discharge planning Objective Vital Signs Last 24 Hour Vital Signs Date Time Temp Pulse Resp B/P (MAP) Pulse Ox O2 Delivery O2 Flow Rate FiO2 06/11/17 12:18 97.6 76 16 131/78 95 Room Air 97.6 06/11/17 08:55 Room Air 06/11/17 08:53 98.2 77 15 167/96 96 98.2 06/11/17 08:23 167/96 06/11/17 04:25 97.5 78 17 130/70 97 97.5 06/11/17 00:00 98.7 68 18 149/74 98 98.7 06/10/17 20:00 98.8 76 18 150/90 98 98.8 06/10/17 16:01 Room Air 06/10/17 16:00 98.1 76 18 125/68 95 98.1 Height (Feet): 5 Height (Inches): 7.00 Weight (Pounds): 180 Objective General Appearance: WD/WN HEENT: normocephalic, atraumatic Respiratory/Chest: chest wall non-tender, lungs clear Breasts: no masses Cardiovascular: normal peripheral pulses, regular rhythm Abdomen: normal bowel sounds, soft, non tender Genitourinary: normal external genitalia Extremities: no cyanosis, aka Skin: extensive keratic lesions on leg Laboratory Tests Test 06/11/17 05:25 White Blood Count 7.3 K/UL (4.8-10.8) Red Blood Count 4.53 M/UL (4.70-6.10) L Hemoglobin 12.9 G/DL (14.2-18.0) L Hematocrit 39.4 % (42.0-52.0) L Mean Corpuscular Volume 87 FL (80-99) Mean Corpuscular Hemoglobin 28.4 PG (27.0-31.0) Mean Corpuscular Hemoglobin Concent 32.6 G/DL (32.0-36.0) Red Cell Distribution Width 12.1 % (11.6-14.8) Platelet Count 221 K/UL (150-450) Mean Platelet Volume 10.9 FL (6.5-10.1) H Neutrophils (%) (Auto) 55.9 % (45.0-75.0) Lymphocytes (%) (Auto) 27.2 % (20.0-45.0) Monocytes (%) (Auto) 10.0 % (1.0-10.0) Eosinophils (%) (Auto) 5.3 % (0.0-3.0) H Basophils (%) (Auto) 1.6 % (0.0-2.0) Sodium Level 139 MMOL/L (136-145) Potassium Level 4.0 MMOL/L (3.5-5.1) Chloride Level 101 MMOL/L (98-107) Carbon Dioxide Level 31 MMOL/L (21-32) Anion Gap 7 mmol/L (5-15) Blood Urea Nitrogen 20 mg/dL (7-18) H Creatinine 1.3 MG/DL (0.55-1.30) Estimat Glomerular Filtration Rate 55.1 mL/min (>60) Glucose Level 242 MG/DL (74-106) H Calcium Level 9.0 MG/DL (8.5-10.1) Current Medications Medications (Trade) Dose Ordered Sig/Caden Route PRN Reason Start Time Stop Time Status Last Admin Dose Admin Acetaminophen (Tylenol) 650 mg Q4H PRN ORAL fever 05/20/17 21:45 06/19/17 21:44 05/21/17 10:25 Ceftriaxone Sodium 2 gm/ Dextrose 110 ml @ 220 mls/hr Q24H IVPB 06/05/17 21:00 06/12/17 20:59 06/10/17 21:51 Clonidine HCl (Catapres Tab) 0.1 mg EVERY 6 HOURS PRN ORAL SBP >160mmHg 05/31/17 17:00 06/30/17 16:59 06/10/17 13:56 Dextrose (Dextrose 50%) STAT PRN IV Hypoglycemia 05/21/17 07:30 06/20/17 07:29 Heparin Sodium (Porcine) (Heparin 5000 units/ml) 5,000 units EVERY 12 HOURS SUBQ 05/21/17 09:00 06/20/17 08:59 06/11/17 08:27 Insulin Aspart (NovoLOG) BEFORE MEALS AND HS SUBQ 05/21/17 08:30 06/20/17 08:29 06/11/17 11:51 Insulin Aspart (NovoLOG) 3 units NOVOTIAC SUBQ 06/09/17 11:50 07/09/17 11:49 06/11/17 11:52 Insulin Detemir (Levemir) 12 units Q24H SUBQ 06/07/17 07:30 07/04/17 07:29 06/11/17 07:36 Lisinopril (Prinivil) 20 mg DAILY ORAL 06/07/17 09:00 07/04/17 08:59 06/11/17 08:23 Metronidazole (Flagyl) 500 mg Q6HR ORAL 06/07/17 18:00 06/14/17 17:59 06/11/17 11:52 Nitroglycerin (Ntg) 0.4 mg Every 5 Minutes PRN SL Prn Chest Pain 05/20/17 21:45 06/19/17 21:44 Ondansetron HCl (Zofran) 4 mg Q6H PRN IVP Nausea & Vomiting 05/20/17 21:45 06/19/17 21:44 Polyethylene Glycol (Miralax) 17 gm DAILYPRN PRN ORAL Constipation 05/20/17 21:45 06/19/17 21:44 Sodium Hypochlorite (Dakin's Quarter Strength) 1 applic DAILY TOPIC 05/23/17 09:00 06/22/17 08:59 06/11/17 08:24 Vancomycin HCl (Vanco rx to dose) 1 ea DAILYPRN PRN MISC RX TO DOSE PROTOCOL 05/28/17 17:15 07/02/17 17:14 Vancomycin HCl/ Dextrose 250 ml @ 166.667 mls/hr Q18H IVPB 06/07/17 18:00 06/12/17 17:59 06/11/17 12:10 Dena Frank M.D. Jun 11, 2017 15:04
[2017-06-11 16:00] VITALS: BP 142/82
[2017-06-11 20:00] VITALS: BP 144/81
[2017-06-11] MEDS: cefTRIAXone 2 GM in D5W 110 ML IVPB SCH (20:55)
[2017-06-12] VITALS: BP 148/78
[2017-06-12] MEDS: metroNIDAZOLE 500mg tab ORAL SCH ×5 (00:13→23:47)
[2017-06-12 04:00] VITALS: BP 132/76
[2017-06-12] MEDS: NovoLOG Insulin Flexpen SUBQ SCH ×7 (06:25→21:00)
[2017-06-12] MEDS: Vancomycin 1250mg/D5W 250ml IVPB SCH ×2 (06:51→23:47)
[2017-06-12 08:00] VITALS: BP 152/78
--- NOTE | 2017-06-12 08:13 | Pulmonology Progress Note ---
Assessment/Plan Assessment/Plan ASSESSMENT R foot cellulitis acute R big toe osteomyelitis diabetic foot ulcer right hallux DM OOC diabetic neuropathy HTN L BKA ETOH abuse hx of smoking PLAN OF CARE MS floor abx ID follows MRI + acute osteo R big toe wound cx +SCON, Enterococci blood cx negative influenza negative podiatry eval appreciated wound care BS management, added Levemir , increased dose , increase dose of premeal Novolog , continue SSI prn, [id number] not at goal BP management added Lisinopril, increase dose farther, improving replaced K and correct lytes as needed DVT prophylaxis venous Duplex with chronic thrombus SFV LLE PT/OT pain management bowel regimen dc planning per ID can be dc on oral abx, scripts in chart SW for assistance with placement ( homeless, BKA) awaiting for placement case discussed and evaluated by supervising physician Subjective Allergies: Coded Allergies: No Known Allergies (Unverified , 11/16/14) Subjective afebrile no signs of distress denies CP, SOB awaiting for disposition Objective Last 24 Hour Vital Signs Date Time Temp Pulse Resp B/P (MAP) Pulse Ox O2 Delivery O2 Flow Rate FiO2 06/12/17 04:00 97.9 77 16 132/76 97.9 06/12/17 00:00 98.2 79 20 148/78 96 Room Air 98.2 06/11/17 20:00 98.6 73 19 144/81 94 Room Air 98.6 06/11/17 16:00 98.2 73 18 142/82 96 98.2 06/11/17 12:18 97.6 76 16 131/78 95 Room Air 97.6 06/11/17 08:55 Room Air 06/11/17 08:53 98.2 77 15 167/96 96 98.2 06/11/17 08:23 167/96 Intake and Output 06/11/17 06/12/17 19:00 07:00 Intake Total 670.000 ml 650 ml Output Total 500 ml 900 ml Balance 170.000 ml -250 ml Intake Oral 420 ml 540 ml IV Total 250.000 ml 110 ml Output Urine Total 500 ml 900 ml # Voids 1 # Bowel Movements 2 Objective General Appearance: no acute distress HEENT: normocephalic, atraumatic, anicteric Respiratory/Chest: lungs clear, no accessory muscle use Cardiovascular: normal rate, no JVD Abdomen: normal bowel sounds, soft, non tender, non distended Extremities: L BKA, R foot edema, erythema, necrosis 1 st toe Neurologic/Psychiatric: abnormal gait, alert, responsive Laboratory Tests 06/12/17 05:00: Vancomycin Level Trough 17.1H Current Medications Medications (Trade) Dose Ordered Sig/Caden Route PRN Reason Start Time Stop Time Status Last Admin Dose Admin Acetaminophen (Tylenol) 650 mg Q4H PRN ORAL fever 05/20/17 21:45 06/19/17 21:44 05/21/17 10:25 Ceftriaxone Sodium 2 gm/ Dextrose 110 ml @ 220 mls/hr Q24H IVPB 06/05/17 21:00 06/12/17 20:59 06/11/17 20:55 Clonidine HCl (Catapres Tab) 0.1 mg EVERY 6 HOURS PRN ORAL SBP >160mmHg 05/31/17 17:00 06/30/17 16:59 06/10/17 13:56 Dextrose (Dextrose 50%) STAT PRN IV Hypoglycemia 05/21/17 07:30 06/20/17 07:29 Heparin Sodium (Porcine) (Heparin 5000 units/ml) 5,000 units EVERY 12 HOURS SUBQ 05/21/17 09:00 06/20/17 08:59 06/11/17 20:48 Insulin Aspart (NovoLOG) BEFORE MEALS AND HS SUBQ 05/21/17 08:30 06/20/17 08:29 06/12/17 06:25 Insulin Aspart (NovoLOG) 3 units NOVOTIAC SUBQ 06/09/17 11:50 07/09/17 11:49 06/12/17 07:04 Insulin Detemir (Levemir) 12 units Q24H SUBQ 06/07/17 07:30 07/04/17 07:29 06/11/17 07:36 Lisinopril (Prinivil) 20 mg DAILY ORAL 06/07/17 09:00 07/04/17 08:59 06/11/17 08:23 Metronidazole (Flagyl) 500 mg Q6HR ORAL 06/07/17 18:00 06/14/17 17:59 06/12/17 06:21 Nitroglycerin (Ntg) 0.4 mg Every 5 Minutes PRN SL Prn Chest Pain 05/20/17 21:45 06/19/17 21:44 Ondansetron HCl (Zofran) 4 mg Q6H PRN IVP Nausea & Vomiting 05/20/17 21:45 06/19/17 21:44 Polyethylene Glycol (Miralax) 17 gm DAILYPRN PRN ORAL Constipation 05/20/17 21:45 06/19/17 21:44 Sodium Hypochlorite (Dakin's Quarter Strength) 1 applic DAILY TOPIC 05/23/17 09:00 06/22/17 08:59 06/11/17 08:24 Vancomycin HCl (Vanco rx to dose) 1 ea DAILYPRN PRN MISC RX TO DOSE PROTOCOL 05/28/17 17:15 07/02/17 17:14 Vancomycin HCl/ Dextrose 250 ml @ 166.667 mls/hr Q18H IVPB 06/07/17 18:00 06/12/17 17:59 06/12/17 06:51 Yony (Zeeshan)Waleska NP Jun 12, 2017 08:13
[2017-06-12] MEDS: Levemir Flexpen SUBQ SCH (08:29)
[2017-06-12] MEDS: Heparin 5000 units/ml inj SUBQ SCH ×2 (08:31→20:34)
[2017-06-12] MEDS: Lisinopril 20mg tab ORAL SCH (08:32)
[2017-06-12] MEDS: Dakin's 0.125% Soln (Quarter Strength) 16oz TOPIC SCH (08:33)
[2017-06-12 12:00] VITALS: BP 129/80
[2017-06-12 16:00] VITALS: BP 154/90
--- NOTE | 2017-06-12 19:57 | Infectious Diseases Prog Note ---
Assessment/Plan Assessment/Plan The patient is a 66-year-old male with Right foot cellulitis. right big toe. osteo -MRI R foot: Findings suspicious for osteomyelitis of the distal aspect of the first distal phalanx -wound cx E.fecalis ([place] S), CoNS (likely represents colonizers) Fever, SP Normal white blood cells Influenza screening tests : Neg Diabetes. Hyperlipidemia. Hypertension. Left BKA. History of alcohol abuse and smoking until recently. 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 PLAN: On IV vancomycin and Ceftriaxone abx d# 23/42 and Flagyl #14 for R 1st toe OM and foot cellulitis; ok to discharge on PO Bactrim DS 2 tab bid and PO Augmentin 875/125mg PO BId to complete course (Rx in chart) -05/24 SP Cefepime #4 Monitor CBC. Monitor BMP. Monitor Wnd cultures Monitor blood culture.. Subjective Allergies: Coded Allergies: No Known Allergies (Unverified , 11/16/14) Subjective comfortable Objective Vital Signs Last 24 Hour Vital Signs Date Time Temp Pulse Resp B/P (MAP) Pulse Ox O2 Delivery O2 Flow Rate FiO2 06/12/17 16:00 98.4 74 19 154/90 97 98.4 06/12/17 12:00 98.1 75 19 129/80 96 98.1 06/12/17 08:32 152/78 06/12/17 08:00 97.9 83 19 152/78 97 97.9 06/12/17 04:00 97.9 77 16 132/76 97.9 06/12/17 00:00 98.2 79 20 148/78 96 Room Air 98.2 06/11/17 20:00 98.6 73 19 144/81 94 Room Air 98.6 Height (Feet): 5 Height (Inches): 7.00 Weight (Pounds): 180 HEENT: anicteric Respiratory/Chest: no respiratory distress Cardiovascular: regularly irregular Abdomen: non distended Laboratory Tests Test 06/12/17 05:00 Vancomycin Level Trough 17.1 ug/mL (5.0-12.0) H Current Medications Medications (Trade) Dose Ordered Sig/Caden Route PRN Reason Start Time Stop Time Status Last Admin Dose Admin Acetaminophen (Tylenol) 650 mg Q4H PRN ORAL fever 05/20/17 21:45 06/19/17 21:44 05/21/17 10:25 Ceftriaxone Sodium 2 gm/ Dextrose 110 ml @ 220 mls/hr Q24H IVPB 06/05/17 21:00 07/02/17 20:59 06/11/17 20:55 Clonidine HCl (Catapres Tab) 0.1 mg EVERY 6 HOURS PRN ORAL SBP >160mmHg 05/31/17 17:00 06/30/17 16:59 06/10/17 13:56 Dextrose (Dextrose 50%) STAT PRN IV Hypoglycemia 05/21/17 07:30 06/20/17 07:29 Heparin Sodium (Porcine) (Heparin 5000 units/ml) 5,000 units EVERY 12 HOURS SUBQ 05/21/17 09:00 06/20/17 08:59 06/12/17 08:31 Insulin Aspart (NovoLOG) BEFORE MEALS AND HS SUBQ 05/21/17 08:30 06/20/17 08:29 06/12/17 16:39 Insulin Aspart (NovoLOG) 4 units NOVOTIAC SUBQ 06/12/17 11:50 07/09/17 11:49 06/12/17 16:40 Insulin Detemir (Levemir) 12 units Q24H SUBQ 06/07/17 07:30 07/04/17 07:29 06/12/17 08:29 Lisinopril (Prinivil) 40 mg DAILY ORAL 06/12/17 09:00 07/04/17 08:59 06/12/17 08:32 Metronidazole (Flagyl) 500 mg Q6HR ORAL 06/07/17 18:00 06/14/17 17:59 06/12/17 16:55 Nitroglycerin (Ntg) 0.4 mg Every 5 Minutes PRN SL Prn Chest Pain 05/20/17 21:45 06/19/17 21:44 Ondansetron HCl (Zofran) 4 mg Q6H PRN IVP Nausea & Vomiting 05/20/17 21:45 06/19/17 21:44 Polyethylene Glycol (Miralax) 17 gm DAILYPRN PRN ORAL Constipation 05/20/17 21:45 06/19/17 21:44 Sodium Hypochlorite (Dakin's Quarter Strength) 1 applic DAILY TOPIC 05/23/17 09:00 06/22/17 08:59 06/12/17 08:33 Vancomycin HCl (Vanco rx to dose) 1 ea DAILYPRN PRN MISC RX TO DOSE PROTOCOL 05/28/17 17:15 07/02/17 17:14 Vancomycin HCl/ Dextrose 250 ml @ 166.667 mls/hr Q18H IVPB 06/07/17 18:00 07/02/17 17:59 06/12/17 06:51 Yuriy Kelsey MD Jun 12, 2017 19:57
[2017-06-12 20:00] VITALS: BP 155/87
[2017-06-12] MEDS: cefTRIAXone 2 GM in D5W 110 ML IVPB SCH (20:29)
[2017-06-13] VITALS: BP 124/68
[2017-06-13 04:00] VITALS: BP 102/53
[2017-06-13] MEDS: metroNIDAZOLE 500mg tab ORAL SCH ×3 (06:30→17:12)
[2017-06-13] MEDS: NovoLOG Insulin Flexpen SUBQ SCH ×7 (06:34→21:06)
[2017-06-13] MEDS: Levemir Flexpen SUBQ SCH (06:35)
[2017-06-13 08:00] VITALS: BP 100/62
[2017-06-13] MEDS: Dakin's 0.125% Soln (Quarter Strength) 16oz TOPIC SCH (08:59)
[2017-06-13] MEDS: Lisinopril 20mg tab ORAL SCH (08:59)
[2017-06-13] MEDS: Heparin 5000 units/ml inj SUBQ SCH ×2 (09:02→21:07)
--- NOTE | 2017-06-13 09:31 | Pulmonology Progress Note ---
Assessment/Plan Assessment/Plan ASSESSMENT R foot cellulitis acute R big toe osteomyelitis diabetic foot ulcer right hallux DM OOC diabetic neuropathy HTN L BKA ETOH abuse hx of smoking PLAN OF CARE MS floor abx ID follows MRI + acute osteo R big toe wound cx +SCON, Enterococci blood cx negative influenza negative podiatry eval appreciated wound care BS management, added Levemir , increased dose , increase dose of premeal Novolog , continue SSI prn, [id number] not at goal BP management added Lisinopril, increase dose farther, improving correct lytes as needed DVT prophylaxis venous Duplex with chronic thrombus SFV LLE PT/OT pain management bowel regimen dc planning per ID can be dc on oral abx, scripts in chart SW for assistance with placement ( homeless, BKA) awaiting for placement per 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 discussed and evaluated by supervising physician Subjective Allergies: Coded Allergies: No Known Allergies (Unverified , 11/16/14) Subjective afebrile no signs of distress denies CP, SOB awaiting for disposition, need placement, challenging Objective Last 24 Hour Vital Signs Date Time Temp Pulse Resp B/P (MAP) Pulse Ox O2 Delivery O2 Flow Rate FiO2 06/13/17 08:59 110/61 06/13/17 08:00 97.9 74 18 100/62 100 97.9 06/13/17 04:00 98.2 73 20 102/53 94 98.2 06/13/17 00:00 97.8 77 20 124/68 95 97.8 06/12/17 20:00 97.7 75 21 155/87 96 97.7 06/12/17 16:00 98.4 74 19 154/90 97 98.4 06/12/17 12:00 98.1 75 19 129/80 96 98.1 Intake and Output 06/12/17 06/13/17 19:00 07:00 Intake Total 480 ml 443.334 ml Output Total 800 ml 850 ml Balance -320 ml -406.666 ml Intake Oral 480 ml IV Total 443.334 ml Output Urine Total 800 ml 850 ml # Bowel Movements 1 Objective General Appearance: no acute distress HEENT: normocephalic, atraumatic, anicteric Respiratory/Chest: lungs clear, no accessory muscle use Cardiovascular: normal rate, no JVD Abdomen: normal bowel sounds, soft, non tender, non distended Extremities: L BKA, R foot edema, erythema, necrosis 1 st toe Neurologic/Psychiatric: abnormal gait, alert, responsive Current Medications Medications (Trade) Dose Ordered Sig/Caden Route PRN Reason Start Time Stop Time Status Last Admin Dose Admin Acetaminophen (Tylenol) 650 mg Q4H PRN ORAL fever 05/20/17 21:45 06/19/17 21:44 05/21/17 10:25 Ceftriaxone Sodium 2 gm/ Dextrose 110 ml @ 220 mls/hr Q24H IVPB 06/05/17 21:00 07/02/17 20:59 06/12/17 20:29 Clonidine HCl (Catapres Tab) 0.1 mg EVERY 6 HOURS PRN ORAL SBP >160mmHg 05/31/17 17:00 06/30/17 16:59 06/10/17 13:56 Dextrose (Dextrose 50%) STAT PRN IV Hypoglycemia 05/21/17 07:30 06/20/17 07:29 Heparin Sodium (Porcine) (Heparin 5000 units/ml) 5,000 units EVERY 12 HOURS SUBQ 05/21/17 09:00 06/20/17 08:59 06/13/17 09:02 Insulin Aspart (NovoLOG) BEFORE MEALS AND HS SUBQ 05/21/17 08:30 06/20/17 08:29 06/13/17 06:35 Insulin Aspart (NovoLOG) 4 units NOVOTIAC SUBQ 06/12/17 11:50 07/09/17 11:49 06/13/17 06:34 Insulin Detemir (Levemir) 12 units Q24H SUBQ 06/07/17 07:30 07/04/17 07:29 06/13/17 06:35 Lisinopril (Prinivil) 40 mg DAILY ORAL 06/12/17 09:00 07/04/17 08:59 06/13/17 08:59 Metronidazole (Flagyl) 500 mg Q6HR ORAL 06/07/17 18:00 06/14/17 17:59 06/13/17 06:30 Nitroglycerin (Ntg) 0.4 mg Every 5 Minutes PRN SL Prn Chest Pain 05/20/17 21:45 06/19/17 21:44 Ondansetron HCl (Zofran) 4 mg Q6H PRN IVP Nausea & Vomiting 05/20/17 21:45 06/19/17 21:44 Polyethylene Glycol (Miralax) 17 gm DAILYPRN PRN ORAL Constipation 05/20/17 21:45 06/19/17 21:44 Sodium Hypochlorite (Dakin's Quarter Strength) 1 applic DAILY TOPIC 05/23/17 09:00 06/22/17 08:59 06/13/17 08:59 Vancomycin HCl (Vanco rx to dose) 1 ea DAILYPRN PRN MISC RX TO DOSE PROTOCOL 05/28/17 17:15 07/02/17 17:14 Vancomycin HCl/ Dextrose 250 ml @ 166.667 mls/hr Q18H IVPB 06/07/17 18:00 07/02/17 17:59 06/12/17 23:47 Yony (Zeeshan)Waleska NP Jun 13, 2017 09:31
[2017-06-13] MEDS ORDERED: Tubing IV Secondary IV ONE (10:11)
[2017-06-13 12:00] VITALS: BP 130/70
[2017-06-13 16:00] VITALS: BP 153/83
[2017-06-13] MEDS: Vancomycin 1250mg/D5W 250ml IVPB SCH (17:12)
[2017-06-13 20:00] VITALS: BP 149/93
[2017-06-13] MEDS: cefTRIAXone 2 GM in D5W 110 ML IVPB SCH (21:04)
[2017-06-14] VITALS: BP 104/64
[2017-06-14] MEDS: metroNIDAZOLE 500mg tab ORAL SCH ×5 (01:09→23:56)
[2017-06-14 04:19] VITALS: BP 102/67
[2017-06-14] MEDS: NovoLOG Insulin Flexpen SUBQ SCH ×7 (06:04→20:33)
[2017-06-14 06:28] LABS: BASOPHILS % (AUTO) 1.6 % (0.0-2.0); HEMATOCRIT 41.3 % (42.0-52.0); HEMOGLOBIN 13.1 G/DL (14.2-18.0); LYMPHOCYTES % (AUTO) 27.8 % (20.0-45.0); MEAN CORPUSCULAR VOLUME 86 FL (80-99); MONOCYTES % (AUTO) 12.1 % (1.0-10.0); NEUTROPHILS % (AUTO) 54.5 % (45.0-75.0); PLATELET COUNT 198 K/UL (150-450); RED BLOOD COUNT 4.79 M/UL (4.70-6.10); RED CELL DISTRIBUTION WIDTH 12.2 % (11.6-14.8)
[2017-06-14] MEDS: Levemir Flexpen SUBQ SCH (06:56)
[2017-06-14 07:32] LABS: ANION GAP 6 mmol/L (5-15); BLOOD UREA NITROGEN 15 mg/dL (7-18); CALCIUM 8.8 MG/DL (8.5-10.1); CARBON DIOXIDE 30 MMOL/L (21-32); CHLORIDE 100 MMOL/L (98-107); CREATININE 1.1 MG/DL (0.55-1.30); POTASSIUM 4.3 MMOL/L (3.5-5.1); SODIUM 136 MMOL/L (136-145)
[2017-06-14 08:00] VITALS: BP 126/78
[2017-06-14] MEDS: Lisinopril 20mg tab ORAL SCH (09:47)
[2017-06-14] MEDS: Heparin 5000 units/ml inj SUBQ SCH ×2 (09:48→20:28)
[2017-06-14] MEDS: Dakin's 0.125% Soln (Quarter Strength) 16oz TOPIC SCH (10:45)
[2017-06-14 12:00] VITALS: BP 123/75
[2017-06-14] MEDS: Vancomycin 1250mg/D5W 250ml IVPB SCH (12:40)
--- NOTE | 2017-06-14 14:05 | Wound Care Consultation ---
Wound Assessment Wound Assessment : Wound Present on Admission: Yes New Wound: Yes Status Change of Wound: No Wound Location Body Site Modif: right Wound Location Body Site: heel Wound Type: pressure ulcer Apple Test: Does not Apple Pressure Ulcer Stage: Deep Tissue Injury Wound Thickness: Full Thickness Wound Length: 4.5 Wound Width: 5.0 Wound Depth: utd Percent of Wound Purple/Maroon: 100 Wound Drainage Amount: None Wound Drainage Odor: None/Absent Tissue Surrounding Wound: Intact Wound General Appearance: Reddened - maroon Wound Comment #1 Right lower leg cellulitis and necrosis of the 1st toe. Good progress noted. 1st toe noted with dry scab. #2 Left and right ischial tuberosity with hyperpigmentation- intact #3 perineal extending to left and right buttocks chemical burn - jagruti care, keep clean and dry, apply Lotrimin cream Per protocol #4 Right heel DTI pressure ulcer Still intact. Reassessed this Pt. No Deterioration noted. Recommendation -Local wound care per protocol for right heel DTI pressure injury -Jagruti care, keep clean and dry, apply Lotrimin cream Per protocol -Keep clean and dry -Turn and reposition -Offload both heels -Heel protector on both heels -Optimize nutrition -Low air loss mattress -Assess and f/u accordingly for any changes WES PALOMARES RN Jun 14, 2017 14:05
--- NOTE | 2017-06-14 14:33 | Infectious Diseases Prog Note ---
Assessment/Plan Assessment/Plan The patient is a 66-year-old male with Right foot cellulitis. right big toe. osteo -MRI R foot: Findings suspicious for osteomyelitis of the distal aspect of the first distal phalanx -wound cx E.fecalis ([place] S), CoNS (likely represents colonizers) Fever, SP Normal white blood cells Influenza screening tests : Neg Diabetes. Hyperlipidemia. Hypertension. Left BKA. History of alcohol abuse and smoking until recently. 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 PLAN: On IV vancomycin and Ceftriaxone abx d# 25/42 and Flagyl #16 for R 1st toe OM and foot cellulitis; ok to discharge on PO Bactrim DS 2 tab bid and PO Augmentin 875/125mg PO BId to complete course (Rx in chart) -05/24 SP Cefepime #4 Monitor CBC. Monitor BMP. Monitor Wnd cultures Monitor blood culture.. Subjective Constitutional: Denies: no symptoms, fever, chills, fatigue, anorexia, drenching sweats, other Allergies: Coded Allergies: No Known Allergies (Unverified , 11/16/14) Subjective comfortable Objective Vital Signs Last 24 Hour Vital Signs Date Time Temp Pulse Resp B/P (MAP) Pulse Ox O2 Delivery O2 Flow Rate FiO2 06/14/17 12:00 98.0 77 18 123/75 99 98.0 06/14/17 09:47 126/78 06/14/17 08:00 97.7 79 18 126/78 98 97.7 06/14/17 07:45 Trach Collar 6.0 28 06/14/17 07:45 93 Trach Collar 6.0 28 06/14/17 04:19 97.6 80 18 102/67 95 97.6 06/14/17 00:00 98.1 75 20 104/64 93 Room Air 98.1 06/13/17 20:00 97.7 80 19 149/93 96 Room Air 97.7 06/13/17 16:00 97.7 74 18 153/83 97 97.7 Height (Feet): 5 Height (Inches): 7.00 Weight (Pounds): 180 HEENT: anicteric Respiratory/Chest: no respiratory distress Cardiovascular: regular rhythm Abdomen: no organomegaly Laboratory Tests Test 06/14/17 05:50 White Blood Count 7.0 K/UL (4.8-10.8) Red Blood Count 4.79 M/UL (4.70-6.10) Hemoglobin 13.1 G/DL (14.2-18.0) L Hematocrit 41.3 % (42.0-52.0) L Mean Corpuscular Volume 86 FL (80-99) Mean Corpuscular Hemoglobin 27.4 PG (27.0-31.0) Mean Corpuscular Hemoglobin Concent 31.8 G/DL (32.0-36.0) L Red Cell Distribution Width 12.2 % (11.6-14.8) Platelet Count 198 K/UL (150-450) Mean Platelet Volume 10.7 FL (6.5-10.1) H Neutrophils (%) (Auto) 54.5 % (45.0-75.0) Lymphocytes (%) (Auto) 27.8 % (20.0-45.0) Monocytes (%) (Auto) 12.1 % (1.0-10.0) H Eosinophils (%) (Auto) 4.0 % (0.0-3.0) H Basophils (%) (Auto) 1.6 % (0.0-2.0) Sodium Level 136 MMOL/L (136-145) Potassium Level 4.3 MMOL/L (3.5-5.1) Chloride Level 100 MMOL/L (98-107) Carbon Dioxide Level 30 MMOL/L (21-32) Anion Gap 6 mmol/L (5-15) Blood Urea Nitrogen 15 mg/dL (7-18) Creatinine 1.1 MG/DL (0.55-1.30) Estimat Glomerular Filtration Rate > 60 mL/min (>60) Glucose Level 182 MG/DL (74-106) H Calcium Level 8.8 MG/DL (8.5-10.1) Current Medications Medications (Trade) Dose Ordered Sig/Caden Route PRN Reason Start Time Stop Time Status Last Admin Dose Admin Acetaminophen (Tylenol) 650 mg Q4H PRN ORAL fever 05/20/17 21:45 06/19/17 21:44 05/21/17 10:25 Ceftriaxone Sodium 2 gm/ Dextrose 110 ml @ 220 mls/hr Q24H IVPB 06/05/17 21:00 07/02/17 20:59 06/13/17 21:04 Clonidine HCl (Catapres Tab) 0.1 mg EVERY 6 HOURS PRN ORAL SBP >160mmHg 05/31/17 17:00 06/30/17 16:59 06/10/17 13:56 Clotrimazole (Lotrimin) 1 applic EVERY 12 HOURS TOPIC 06/14/17 14:15 07/14/17 14:14 UNV Dextrose (Dextrose 50%) STAT PRN IV Hypoglycemia 05/21/17 07:30 06/20/17 07:29 Heparin Sodium (Porcine) (Heparin 5000 units/ml) 5,000 units EVERY 12 HOURS SUBQ 05/21/17 09:00 06/20/17 08:59 06/14/17 09:48 Insulin Aspart (NovoLOG) BEFORE MEALS AND HS SUBQ 05/21/17 08:30 06/20/17 08:29 06/14/17 11:51 Insulin Aspart (NovoLOG) 4 units NOVOTIAC SUBQ 06/12/17 11:50 07/09/17 11:49 06/14/17 11:52 Insulin Detemir (Levemir) 12 units Q24H SUBQ 06/07/17 07:30 07/04/17 07:29 06/14/17 06:56 Lisinopril (Prinivil) 40 mg DAILY ORAL 06/12/17 09:00 07/04/17 08:59 06/14/17 09:47 Metronidazole (Flagyl) 500 mg Q6HR ORAL 06/07/17 18:00 06/14/17 17:59 06/14/17 11:49 Nitroglycerin (Ntg) 0.4 mg Every 5 Minutes PRN SL Prn Chest Pain 05/20/17 21:45 06/19/17 21:44 Ondansetron HCl (Zofran) 4 mg Q6H PRN IVP Nausea & Vomiting 05/20/17 21:45 06/19/17 21:44 Polyethylene Glycol (Miralax) 17 gm DAILYPRN PRN ORAL Constipation 05/20/17 21:45 06/19/17 21:44 Sodium Hypochlorite (Dakin's Quarter Strength) 1 applic DAILY TOPIC 05/23/17 09:00 06/22/17 08:59 06/14/17 10:45 Vancomycin HCl (Vanco rx to dose) 1 ea DAILYPRN PRN MISC RX TO DOSE PROTOCOL 3/16/18 17:15 07/02/17 17:14 Vancomycin HCl/ Dextrose 250 ml @ 166.667 mls/hr Q18H IVPB 06/07/17 18:00 07/02/17 17:59 06/14/17 12:40 Yuriy Kelsey MD Jun 14, 2017 14:33
[2017-06-14 16:00] VITALS: BP 121/74
[2017-06-14 20:00] VITALS: BP 148/89
[2017-06-14] MEDS: cefTRIAXone 2 GM in D5W 110 ML IVPB SCH (20:27)
--- NOTE | 2017-06-14 22:46 | Pulmonology Progress Note ---
Assessment/Plan Problems: (1) Osteomyelitis of ankle or foot, acute (2) Cellulitis of right lower extremity (3) Ulcer of heel and midfoot (4) ETOH abuse (5) HTN (hypertension) (6) Diabetes (7) Anemia (8) S/P BKA (below knee amputation) Assessment/Plan continue abx, retirement check cutlrues f/u ID recommendations dc planning to a nursign home pt/ot eating better, leg wounds looks better \ Subjective ROS Limited/Unobtainable: No Allergies: Coded Allergies: No Known Allergies (Unverified , 11/16/14) Objective Last 24 Hour Vital Signs Date Time Temp Pulse Resp B/P (MAP) Pulse Ox O2 Delivery O2 Flow Rate FiO2 06/14/17 20:00 99.2 84 20 148/89 95 99.2 06/14/17 20:00 Room Air 06/14/17 16:00 98.0 73 18 121/74 98 98.0 06/14/17 12:00 98.0 77 18 123/75 99 98.0 06/14/17 09:47 126/78 06/14/17 08:00 97.7 79 18 126/78 98 97.7 06/14/17 07:45 Trach Collar 6.0 28 06/14/17 07:45 93 Trach Collar 6.0 28 06/14/17 04:19 97.6 80 18 102/67 95 97.6 06/14/17 00:00 98.1 75 20 104/64 93 Room Air 98.1 Intake and Output 06/13/17 06/14/17 19:00 07:00 Intake Total 480 ml 470 ml Output Total 950 ml Balance -470 ml 470 ml Intake Oral 480 ml 360 ml IV Total 110 ml Output Urine Total 950 ml # Voids 3 Objective General Appearance: WD/WN HEENT: normocephalic, atraumatic Respiratory/Chest: chest wall non-tender, lungs clear Breasts: no masses Cardiovascular: normal peripheral pulses, regular rhythm Abdomen: normal bowel sounds, soft, non tender Genitourinary: normal external genitalia Extremities: no cyanosis, aka Skin: extensive keratic lesions on leg Laboratory Tests 06/14/17 05:50: White Blood Count 7.0, Red Blood Count 4.79, Hemoglobin 13.1L, Hematocrit 41.3L , Mean Corpuscular Volume 86, Mean Corpuscular Hemoglobin 27.4, Mean Corpuscular Hemoglobin Concent 31.8L, Red Cell Distribution Width 12.2, Platelet Count 198, Mean Platelet Volume 10.7H, Neutrophils (%) (Auto) 54.5, Lymphocytes (%) (Auto) 27.8, Monocytes (%) (Auto) 12.1H, Eosinophils (%) (Auto) 4.0H, Basophils (%) (Auto) 1.6, Sodium Level 136, Potassium Level 4.3, Chloride Level 100, Carbon Dioxide Level 30, Anion Gap 6, Blood Urea Nitrogen 15, Creatinine 1.1, Estimat Glomerular Filtration Rate > 60, Glucose Level 182H, Calcium Level 8.8 Current Medications Medications (Trade) Dose Ordered Sig/Caden Route PRN Reason Start Time Stop Time Status Last Admin Dose Admin Acetaminophen (Tylenol) 650 mg Q4H PRN ORAL fever 05/20/17 21:45 06/19/17 21:44 05/21/17 10:25 Ceftriaxone Sodium 2 gm/ Dextrose 110 ml @ 220 mls/hr Q24H IVPB 06/05/17 21:00 07/02/17 20:59 06/14/17 20:27 Clonidine HCl (Catapres Tab) 0.1 mg EVERY 6 HOURS PRN ORAL SBP >160mmHg 05/31/17 17:00 06/30/17 16:59 06/10/17 13:56 Clotrimazole (Lotrimin) 1 applic EVERY 12 HOURS TOPIC 06/14/17 15:30 07/14/17 15:29 06/14/17 20:27 Dextrose (Dextrose 50%) STAT PRN IV Hypoglycemia 05/21/17 07:30 06/20/17 07:29 Heparin Sodium (Porcine) (Heparin 5000 units/ml) 5,000 units EVERY 12 HOURS SUBQ 05/21/17 09:00 06/20/17 08:59 06/14/17 20:28 Insulin Aspart (NovoLOG) BEFORE MEALS AND HS SUBQ 05/21/17 08:30 06/20/17 08:29 06/14/17 20:33 Insulin Aspart (NovoLOG) 4 units NOVOTIAC SUBQ 06/12/17 11:50 07/09/17 11:49 06/14/17 16:38 Insulin Detemir (Levemir) 12 units Q24H SUBQ 06/07/17 07:30 07/04/17 07:29 06/14/17 06:56 Lisinopril (Prinivil) 40 mg DAILY ORAL 06/12/17 09:00 07/04/17 08:59 06/14/17 09:47 Metronidazole (Flagyl) 500 mg Q6HR ORAL 06/07/17 18:00 06/21/17 17:59 06/14/17 18:02 Nitroglycerin (Ntg) 0.4 mg Every 5 Minutes PRN SL Prn Chest Pain 05/20/17 21:45 06/19/17 21:44 Ondansetron HCl (Zofran) 4 mg Q6H PRN IVP Nausea & Vomiting 05/20/17 21:45 06/19/17 21:44 Polyethylene Glycol (Miralax) 17 gm DAILYPRN PRN ORAL Constipation 05/20/17 21:45 06/19/17 21:44 Sodium Hypochlorite (Dakin's Quarter Strength) 1 applic DAILY TOPIC 05/23/17 09:00 06/22/17 08:59 06/14/17 10:45 Vancomycin HCl (Vanco rx to dose) 1 ea DAILYPRN PRN MISC RX TO DOSE PROTOCOL 05/28/17 17:15 07/02/17 17:14 Vancomycin HCl/ Dextrose 250 ml @ 166.667 mls/hr Q18H IVPB 06/07/17 18:00 07/02/17 17:59 06/14/17 12:40 Kyra Massey MD Jun 14, 2017 22:46
[2017-06-15] VITALS (7 sets, daily range): BP systolic 111–169; BP diastolic 71–93
[2017-06-15] MEDS: NovoLOG Insulin Flexpen SUBQ SCH ×7 (05:51→20:16)
[2017-06-15] MEDS: metroNIDAZOLE 500mg tab ORAL SCH ×4 (05:51→23:40)
[2017-06-15] MEDS: Vancomycin 1250mg/D5W 250ml IVPB SCH ×2 (05:52→23:40)
[2017-06-15] MEDS: Levemir Flexpen SUBQ SCH (08:15)
--- NOTE | 2017-06-15 09:14 | Infectious Diseases Prog Note ---
Assessment/Plan Assessment/Plan The patient is a 66-year-old male with Right foot cellulitis. right big toe. osteo -MRI R foot: Findings suspicious for osteomyelitis of the distal aspect of the first distal phalanx -wound cx E.fecalis ([place] S), CoNS (likely represents colonizers) Fever, SP Normal white blood cells Influenza screening tests : Neg Diabetes. Hyperlipidemia. Hypertension. Left BKA. History of alcohol abuse and smoking until recently. 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 PLAN: On IV vancomycin and Ceftriaxone abx d# 26/42 and Flagyl #16 for R 1st toe OM and foot cellulitis; ok to discharge on PO Bactrim DS 2 tab bid and PO Augmentin 875/125mg PO BId to complete course (Rx in chart) -05/24 SP Cefepime #4 Monitor CBC. Monitor BMP.. Subjective Constitutional: Denies: no symptoms, fever, chills, fatigue, anorexia, drenching sweats, other Allergies: Coded Allergies: No Known Allergies (Unverified , 11/16/14) Subjective comfortable Objective Vital Signs Last 24 Hour Vital Signs Date Time Temp Pulse Resp B/P (MAP) Pulse Ox O2 Delivery O2 Flow Rate FiO2 06/15/17 04:00 98.6 79 20 111/71 96 98.6 06/15/17 00:00 Room Air 06/15/17 00:00 98.2 88 20 139/85 98 98.2 06/14/17 20:00 99.2 84 20 148/89 95 99.2 06/14/17 20:00 Room Air 06/14/17 16:00 98.0 73 18 121/74 98 98.0 06/14/17 12:00 98.0 77 18 123/75 99 98.0 06/14/17 09:47 126/78 Height (Feet): 5 Height (Inches): 7.00 Weight (Pounds): 180 HEENT: anicteric Respiratory/Chest: no accessory muscle use Cardiovascular: no gallop/murmur Abdomen: soft, non tender Current Medications Medications (Trade) Dose Ordered Sig/Caden Route PRN Reason Start Time Stop Time Status Last Admin Dose Admin Acetaminophen (Tylenol) 650 mg Q4H PRN ORAL fever 05/20/17 21:45 06/19/17 21:44 05/21/17 10:25 Ceftriaxone Sodium 2 gm/ Dextrose 110 ml @ 220 mls/hr Q24H IVPB 06/05/17 21:00 07/02/17 20:59 06/14/17 20:27 Clonidine HCl (Catapres Tab) 0.1 mg EVERY 6 HOURS PRN ORAL SBP >160mmHg 05/31/17 17:00 06/30/17 16:59 06/10/17 13:56 Clotrimazole (Lotrimin) 1 applic EVERY 12 HOURS TOPIC 06/14/17 15:30 07/14/17 15:29 06/14/17 20:27 Dextrose (Dextrose 50%) STAT PRN IV Hypoglycemia 05/21/17 07:30 06/20/17 07:29 Heparin Sodium (Porcine) (Heparin 5000 units/ml) 5,000 units EVERY 12 HOURS SUBQ 05/21/17 09:00 06/20/17 08:59 06/14/17 20:28 Insulin Aspart (NovoLOG) BEFORE MEALS AND HS SUBQ 05/21/17 08:30 06/20/17 08:29 06/15/17 05:51 Insulin Aspart (NovoLOG) 4 units NOVOTIAC SUBQ 06/12/17 11:50 07/09/17 11:49 06/15/17 05:56 Insulin Detemir (Levemir) 12 units Q24H SUBQ 06/07/17 07:30 07/04/17 07:29 06/15/17 08:15 Lisinopril (Prinivil) 40 mg DAILY ORAL 06/12/17 09:00 07/04/17 08:59 06/14/17 09:47 Metronidazole (Flagyl) 500 mg Q6HR ORAL 06/07/17 18:00 06/21/17 17:59 06/15/17 05:51 Nitroglycerin (Ntg) 0.4 mg Every 5 Minutes PRN SL Prn Chest Pain 05/20/17 21:45 06/19/17 21:44 Ondansetron HCl (Zofran) 4 mg Q6H PRN IVP Nausea & Vomiting 05/20/17 21:45 06/19/17 21:44 Polyethylene Glycol (Miralax) 17 gm DAILYPRN PRN ORAL Constipation 05/20/17 21:45 06/19/17 21:44 Sodium Hypochlorite (Dakin's Quarter Strength) 1 applic DAILY TOPIC 05/23/17 09:00 06/22/17 08:59 06/14/17 10:45 Vancomycin HCl (Vanco rx to dose) 1 ea DAILYPRN PRN MISC RX TO DOSE PROTOCOL 05/28/17 17:15 07/02/17 17:14 Vancomycin HCl/ Dextrose 250 ml @ 166.667 mls/hr Q18H IVPB 06/07/17 18:00 07/02/17 17:59 06/15/17 05:52 Yuriy Kelsey MD Jun 15, 2017 09:14
[2017-06-15] MEDS: Lisinopril 20mg tab ORAL SCH (09:25)
[2017-06-15] MEDS: Heparin 5000 units/ml inj SUBQ SCH ×2 (09:26→20:17)
[2017-06-15] MEDS: Dakin's 0.125% Soln (Quarter Strength) 16oz TOPIC SCH (10:09)
[2017-06-15] MEDS: cefTRIAXone 2 GM in D5W 110 ML IVPB SCH (20:13)
[2017-06-16 03:52] VITALS: BP 126/73
[2017-06-16] MEDS: metroNIDAZOLE 500mg tab ORAL SCH ×4 (05:31→23:37)
[2017-06-16] MEDS: NovoLOG Insulin Flexpen SUBQ SCH ×7 (05:32→20:36)
[2017-06-16 08:00] VITALS: BP 155/85
[2017-06-16] MEDS: Dakin's 0.125% Soln (Quarter Strength) 16oz TOPIC SCH (08:52)
[2017-06-16] MEDS: Lisinopril 20mg tab ORAL SCH (08:53)
[2017-06-16] MEDS: Levemir Flexpen SUBQ SCH (08:56)
[2017-06-16] MEDS: Heparin 5000 units/ml inj SUBQ SCH ×2 (08:57→20:37)
--- NOTE | 2017-06-16 10:31 | Infectious Diseases Prog Note ---
Assessment/Plan Assessment/Plan The patient is a 66-year-old male with Right foot cellulitis. right big toe. osteo -MRI R foot: Findings suspicious for osteomyelitis of the distal aspect of the first distal phalanx -wound cx E.fecalis ([place] S), CoNS (likely represents colonizers) Fever, SP Normal white blood cells Influenza screening tests : Neg Diabetes. Hyperlipidemia. Hypertension. Left BKA. History of alcohol abuse and smoking until recently. 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 PLAN: On IV vancomycin and Ceftriaxone abx d# 27/42 and Flagyl #17 for R 1st toe OM and foot cellulitis; ok to discharge on PO Bactrim DS 2 tab bid and PO Augmentin 875/125mg PO BId to complete course (Rx in chart) -05/24 SP Cefepime #4 Monitor CBC. Monitor BMP.. Subjective Constitutional: Denies: no symptoms, fever, chills, fatigue, anorexia, drenching sweats, other Allergies: Coded Allergies: No Known Allergies (Unverified , 11/16/14) Subjective comfortable Objective Vital Signs Last 24 Hour Vital Signs Date Time Temp Pulse Resp B/P (MAP) Pulse Ox O2 Delivery O2 Flow Rate FiO2 06/16/17 08:53 155/85 06/16/17 08:00 97.9 79 19 155/85 98 97.9 06/16/17 03:52 97.7 73 20 126/73 94 Room Air 97.7 06/16/17 03:52 94 Room Air 06/15/17 23:52 98.1 74 20 146/86 97 Room Air 98.1 06/15/17 19:28 97.5 76 20 169/93 99 Room Air 97.5 06/15/17 16:00 98.4 73 18 145/84 96 98.4 06/15/17 11:50 98.1 74 18 130/76 96 98.1 Height (Feet): 5 Height (Inches): 7.00 Weight (Pounds): 180 HEENT: atraumatic Respiratory/Chest: normal breath sounds Cardiovascular: regular rhythm Abdomen: soft, non tender Current Medications Medications (Trade) Dose Ordered Sig/Caden Route PRN Reason Start Time Stop Time Status Last Admin Dose Admin Acetaminophen (Tylenol) 650 mg Q4H PRN ORAL fever 05/20/17 21:45 06/19/17 21:44 05/21/17 10:25 Ceftriaxone Sodium 2 gm/ Dextrose 110 ml @ 220 mls/hr Q24H IVPB 06/05/17 21:00 07/02/17 20:59 06/15/17 20:13 Clonidine HCl (Catapres Tab) 0.1 mg EVERY 6 HOURS PRN ORAL SBP >160mmHg 05/31/17 17:00 06/30/17 16:59 06/10/17 13:56 Clotrimazole (Lotrimin) 1 applic EVERY 12 HOURS TOPIC 06/14/17 15:30 07/14/17 15:29 06/16/17 08:52 Dextrose (Dextrose 50%) 25 ml STAT PRN IV HYPOGLYCEMIA 06/16/17 09:45 07/16/17 09:44 Dextrose (Dextrose 50%) 50 ml STAT PRN IV Hypoglycemia 06/16/17 09:45 06/20/17 07:29 Heparin Sodium (Porcine) (Heparin 5000 units/ml) 5,000 units EVERY 12 HOURS SUBQ 05/21/17 09:00 06/20/17 08:59 06/16/17 08:57 Insulin Aspart (NovoLOG) BEFORE MEALS AND HS SUBQ 05/21/17 08:30 06/20/17 08:29 06/16/17 05:32 Insulin Aspart (NovoLOG) 4 units NOVOTIAC SUBQ 06/12/17 11:50 07/09/17 11:49 06/16/17 05:33 Insulin Detemir (Levemir) 12 units Q24H SUBQ 06/07/17 07:30 07/04/17 07:29 06/16/17 08:56 Lisinopril (Prinivil) 40 mg DAILY ORAL 06/12/17 09:00 07/04/17 08:59 06/16/17 08:53 Metronidazole (Flagyl) 500 mg Q6HR ORAL 06/07/17 18:00 06/21/17 17:59 06/16/17 05:31 Nitroglycerin (Ntg) 0.4 mg Every 5 Minutes PRN SL Prn Chest Pain 05/20/17 21:45 06/19/17 21:44 Ondansetron HCl (Zofran) 4 mg Q6H PRN IVP Nausea & Vomiting 05/20/17 21:45 06/19/17 21:44 Polyethylene Glycol (Miralax) 17 gm DAILYPRN PRN ORAL Constipation 05/20/17 21:45 06/19/17 21:44 Sodium Hypochlorite (Dakin's Quarter Strength) 1 applic DAILY TOPIC 05/23/17 09:00 06/22/17 08:59 06/16/17 08:52 Vancomycin HCl (Vanco rx to dose) 1 ea DAILYPRN PRN MISC RX TO DOSE PROTOCOL 05/28/17 17:15 07/02/17 17:14 Vancomycin HCl/ Dextrose 250 ml @ 166.667 mls/hr Q18H IVPB 06/07/17 18:00 07/02/17 17:59 06/15/17 23:40 Yuriy Kelsey MD Jun 16, 2017 10:31
[2017-06-16 12:00] VITALS: BP 132/77
[2017-06-16 16:00] VITALS: BP 133/72
[2017-06-16] MEDS: Vancomycin 1250mg/D5W 250ml IVPB SCH (17:01)
[2017-06-16 19:52] VITALS: BP 156/90
--- NOTE | 2017-06-16 20:13 | Pulmonology Progress Note ---
Assessment/Plan Problems: (1) Osteomyelitis of ankle or foot, acute (2) Cellulitis of right lower extremity (3) Ulcer of heel and midfoot (4) ETOH abuse (5) HTN (hypertension) (6) Diabetes (7) Anemia (8) S/P BKA (below knee amputation) Assessment/Plan continue abx, skilled nursing check cutlrues f/u ID recommendations dc planning to a nursign home pt/ot \ Subjective ROS Limited/Unobtainable: No Allergies: Coded Allergies: No Known Allergies (Unverified , 11/16/14) Objective Last 24 Hour Vital Signs Date Time Temp Pulse Resp B/P (MAP) Pulse Ox O2 Delivery O2 Flow Rate FiO2 06/16/17 19:52 99.6 75 18 156/90 98 99.6 06/16/17 16:00 98.6 77 18 133/72 95 Room Air 98.6 06/16/17 12:00 98.6 74 18 132/77 98 Room Air 98.6 06/16/17 08:53 155/85 06/16/17 08:00 97.9 79 19 155/85 98 97.9 06/16/17 03:52 97.7 73 20 126/73 94 Room Air 97.7 06/16/17 03:52 94 Room Air 06/15/17 23:52 98.1 74 20 146/86 97 Room Air 98.1 Intake and Output 06/15/17 06/16/17 19:00 07:00 Intake Total 480 ml 650 ml Output Total 950 ml 380 ml Balance -470 ml 270 ml Intake Oral 480 ml 400 ml IV Total 250 ml Output Urine Total 950 ml 380 ml # Voids 3 # Bowel Movements 1 Objective General Appearance: WD/WN HEENT: normocephalic, atraumatic Respiratory/Chest: chest wall non-tender, lungs clear Breasts: no masses Cardiovascular: normal peripheral pulses, regular rhythm Abdomen: normal bowel sounds, soft, non tender Genitourinary: normal external genitalia Extremities: no cyanosis, aka Skin: extensive keratic lesions on leg Current Medications Medications (Trade) Dose Ordered Sig/Caden Route PRN Reason Start Time Stop Time Status Last Admin Dose Admin Acetaminophen (Tylenol) 650 mg Q4H PRN ORAL fever 05/20/17 21:45 06/19/17 21:44 05/21/17 10:25 Ceftriaxone Sodium 2 gm/ Dextrose 110 ml @ 220 mls/hr Q24H IVPB 06/05/17 21:00 07/02/17 20:59 06/15/17 20:13 Clonidine HCl (Catapres Tab) 0.1 mg EVERY 6 HOURS PRN ORAL SBP >160mmHg 05/31/17 17:00 06/30/17 16:59 06/10/17 13:56 Clotrimazole (Lotrimin) 1 applic EVERY 12 HOURS TOPIC 06/14/17 15:30 07/14/17 15:29 06/16/17 08:52 Dextrose (Dextrose 50%) 25 ml STAT PRN IV HYPOGLYCEMIA 06/16/17 09:45 07/16/17 09:44 Dextrose (Dextrose 50%) 50 ml STAT PRN IV Hypoglycemia 06/16/17 09:45 06/20/17 07:29 Heparin Sodium (Porcine) (Heparin 5000 units/ml) 5,000 units EVERY 12 HOURS SUBQ 05/21/17 09:00 06/20/17 08:59 06/16/17 08:57 Insulin Aspart (NovoLOG) BEFORE MEALS AND HS SUBQ 05/21/17 08:30 06/20/17 08:29 06/16/17 17:07 Insulin Aspart (NovoLOG) 4 units NOVOTIAC SUBQ 06/12/17 11:50 07/09/17 11:49 06/16/17 17:07 Insulin Detemir (Levemir) 12 units Q24H SUBQ 06/07/17 07:30 07/04/17 07:29 06/16/17 08:56 Lisinopril (Prinivil) 40 mg DAILY ORAL 06/12/17 09:00 07/04/17 08:59 06/16/17 08:53 Metronidazole (Flagyl) 500 mg Q6HR ORAL 06/07/17 18:00 06/21/17 17:59 06/16/17 17:00 Nitroglycerin (Ntg) 0.4 mg Every 5 Minutes PRN SL Prn Chest Pain 05/20/17 21:45 06/19/17 21:44 Ondansetron HCl (Zofran) 4 mg Q6H PRN IVP Nausea & Vomiting 05/20/17 21:45 06/19/17 21:44 Polyethylene Glycol (Miralax) 17 gm DAILYPRN PRN ORAL Constipation 05/20/17 21:45 06/19/17 21:44 Sodium Hypochlorite (Dakin's Quarter Strength) 1 applic DAILY TOPIC 05/23/17 09:00 06/22/17 08:59 06/16/17 08:52 Vancomycin HCl (Vanco rx to dose) 1 ea DAILYPRN PRN MISC RX TO DOSE PROTOCOL 05/28/17 17:15 07/02/17 17:14 Vancomycin HCl/ Dextrose 250 ml @ 166.667 mls/hr Q18H IVPB 06/07/17 18:00 07/02/17 17:59 06/16/17 17:01 Kyra Massey MD Jun 16, 2017 20:13
[2017-06-16] MEDS ORDERED: Tubing IV Secondary IV ONE ×2 (20:19→20:20)
[2017-06-16] MEDS: cefTRIAXone 2 GM in D5W 110 ML IVPB SCH (20:32)
[2017-06-16 23:40] VITALS: BP 155/82
[2017-06-17 03:58] VITALS: BP 131/68
[2017-06-17] MEDS: metroNIDAZOLE 500mg tab ORAL SCH ×4 (05:34→23:56)
[2017-06-17] MEDS: NovoLOG Insulin Flexpen SUBQ SCH ×7 (06:43→20:56)
[2017-06-17 08:00] VITALS: BP 116/73
[2017-06-17] MEDS: Lisinopril 20mg tab ORAL SCH (08:57)
[2017-06-17] MEDS: Dakin's 0.125% Soln (Quarter Strength) 16oz TOPIC SCH (08:58)
[2017-06-17] MEDS: Heparin 5000 units/ml inj SUBQ SCH ×2 (09:00→20:55)
[2017-06-17] MEDS: Levemir Flexpen SUBQ SCH (09:00)
[2017-06-17 12:00] VITALS: BP 124/80
[2017-06-17] MEDS: Vancomycin 1250mg/D5W 250ml IVPB SCH (12:28)
--- NOTE | 2017-06-17 13:18 | Infectious Diseases Prog Note ---
Assessment/Plan Assessment/Plan The patient is a 66-year-old male with Right foot cellulitis. right big toe. osteo -MRI R foot: Findings suspicious for osteomyelitis of the distal aspect of the first distal phalanx -wound cx E.fecalis ([place] S), CoNS (likely represents colonizers) Fever, SP Normal white blood cells Influenza screening tests : Neg Diabetes. Hyperlipidemia. Hypertension. Left BKA. History of alcohol abuse and smoking until recently. 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 PLAN: On IV vancomycin and Ceftriaxone abx d# 28/42 and Flagyl #18 for R 1st toe OM and foot cellulitis; ok to discharge on PO Bactrim DS 2 tab bid and PO Augmentin 875/125mg PO BId to complete course (Rx in chart) -05/24 SP Cefepime #4 Monitor CBC. Monitor BMP.. Subjective Constitutional: Denies: no symptoms, fever, chills, fatigue, anorexia, drenching sweats, other Allergies: Coded Allergies: No Known Allergies (Unverified , 11/16/14) Subjective comfortable Objective Vital Signs Last 24 Hour Vital Signs Date Time Temp Pulse Resp B/P (MAP) Pulse Ox O2 Delivery O2 Flow Rate FiO2 06/17/17 12:00 97.5 80 20 124/80 96 97.5 06/17/17 08:57 131/68 06/17/17 08:00 97.3 76 19 116/73 95 97.3 06/17/17 03:58 98.2 80 18 131/68 95 98.2 06/17/17 00:00 Room Air 06/16/17 23:40 98.2 78 18 155/82 97 98.2 06/16/17 19:52 99.6 75 18 156/90 98 99.6 06/16/17 19:50 Room Air 06/16/17 16:00 98.6 77 18 133/72 95 Room Air 98.6 Height (Feet): 5 Height (Inches): 7.00 Weight (Pounds): 180 HEENT: anicteric Respiratory/Chest: normal breath sounds Cardiovascular: regular rhythm Abdomen: no organomegaly Current Medications Medications (Trade) Dose Ordered Sig/Caden Route PRN Reason Start Time Stop Time Status Last Admin Dose Admin Acetaminophen (Tylenol) 650 mg Q4H PRN ORAL fever 05/20/17 21:45 4/7/18 21:44 05/21/17 10:25 Ceftriaxone Sodium 2 gm/ Dextrose 110 ml @ 220 mls/hr Q24H IVPB 06/05/17 21:00 07/02/17 20:59 06/16/17 20:32 Clonidine HCl (Catapres Tab) 0.1 mg EVERY 6 HOURS PRN ORAL SBP >160mmHg 05/31/17 17:00 06/30/17 16:59 06/10/17 13:56 Clotrimazole (Lotrimin) 1 applic EVERY 12 HOURS TOPIC 06/14/17 15:30 07/14/17 15:29 06/17/17 08:58 Dextrose (Dextrose 50%) 25 ml STAT PRN IV HYPOGLYCEMIA 06/16/17 09:45 07/16/17 09:44 Dextrose (Dextrose 50%) 50 ml STAT PRN IV Hypoglycemia 06/16/17 09:45 06/20/17 07:29 Heparin Sodium (Porcine) (Heparin 5000 units/ml) 5,000 units EVERY 12 HOURS SUBQ 05/21/17 09:00 06/20/17 08:59 06/17/17 09:00 Insulin Aspart (NovoLOG) BEFORE MEALS AND HS SUBQ 05/21/17 08:30 06/20/17 08:29 06/17/17 12:37 Insulin Aspart (NovoLOG) 4 units NOVOTIAC SUBQ 06/12/17 11:50 07/09/17 11:49 06/17/17 12:37 Insulin Detemir (Levemir) 12 units Q24H SUBQ 06/07/17 07:30 07/04/17 07:29 06/17/17 09:00 Lisinopril (Prinivil) 40 mg DAILY ORAL 06/12/17 09:00 07/04/17 08:59 06/17/17 08:57 Metronidazole (Flagyl) 500 mg Q6HR ORAL 06/07/17 18:00 06/21/17 17:59 06/17/17 12:28 Nitroglycerin (Ntg) 0.4 mg Every 5 Minutes PRN SL Prn Chest Pain 05/20/17 21:45 06/19/17 21:44 Ondansetron HCl (Zofran) 4 mg Q6H PRN IVP Nausea & Vomiting 05/20/17 21:45 4/7/18 21:44 Polyethylene Glycol (Miralax) 17 gm DAILYPRN PRN ORAL Constipation 05/20/17 21:45 06/19/17 21:44 Sodium Hypochlorite (Dakin's Quarter Strength) 1 applic DAILY TOPIC 05/23/17 09:00 06/22/17 08:59 06/17/17 08:58 Vancomycin HCl (Vanco rx to dose) 1 ea DAILYPRN PRN MISC RX TO DOSE PROTOCOL 05/28/17 17:15 07/02/17 17:14 Vancomycin HCl/ Dextrose 250 ml @ 166.667 mls/hr Q18H IVPB 06/07/17 18:00 07/02/17 17:59 06/17/17 12:28 Yuriy Kelsey MD Jun 17, 2017 13:17
[2017-06-17 15:52] VITALS: BP 140/89
[2017-06-17 20:00] VITALS: BP 128/80
[2017-06-17] MEDS: cefTRIAXone 2 GM in D5W 110 ML IVPB SCH (20:53)
[2017-06-18] VITALS: BP 142/83
[2017-06-18 04:00] VITALS: BP 140/82
[2017-06-18] MEDS: Vancomycin 1250mg/D5W 250ml IVPB SCH (05:37)
[2017-06-18] MEDS: metroNIDAZOLE 500mg tab ORAL SCH ×3 (05:38→18:22)
[2017-06-18] MEDS: NovoLOG Insulin Flexpen SUBQ SCH ×7 (06:00→21:18)
[2017-06-18 08:00] VITALS: BP 113/73
[2017-06-18] MEDS: Levemir Flexpen SUBQ SCH (08:24)
[2017-06-18] MEDS: Dakin's 0.125% Soln (Quarter Strength) 16oz TOPIC SCH (09:38)
[2017-06-18] MEDS: Lisinopril 20mg tab ORAL SCH (09:38)
[2017-06-18] MEDS: Heparin 5000 units/ml inj SUBQ SCH ×2 (09:54→21:18)
[2017-06-18 11:50] VITALS: BP 135/77
[2017-06-18] MEDS ORDERED: NS 275ml ONE (14:35)
[2017-06-18] MEDS ORDERED: Tubing IV Secondary IV ONE (14:35)
[2017-06-18 15:37] VITALS: BP 136/83
--- NOTE | 2017-06-18 17:44 | Pulmonology Progress Note ---
Assessment/Plan Problems: (1) Osteomyelitis of ankle or foot, acute (2) Cellulitis of right lower extremity (3) Ulcer of heel and midfoot (4) ETOH abuse (5) HTN (hypertension) (6) Diabetes (7) Anemia (8) S/P BKA (below knee amputation) Assessment/Plan continue abx, retirement check cutlrues f/u ID recommendations dc planning to a nursign home pt/ot eating better, leg wounds looks better all reviewed \ Subjective ROS Limited/Unobtainable: No Allergies: Coded Allergies: No Known Allergies (Unverified , 11/16/14) Objective Last 24 Hour Vital Signs Date Time Temp Pulse Resp B/P (MAP) Pulse Ox O2 Delivery O2 Flow Rate FiO2 06/18/17 15:37 97.8 75 20 136/83 96 97.8 06/18/17 11:50 97.7 77 18 135/77 96 97.7 06/18/17 09:38 113/73 06/18/17 08:00 97.8 81 18 113/73 97 97.8 06/18/17 04:00 98.0 75 16 140/82 98 98.0 06/18/17 00:00 98.1 79 17 142/83 98 98.1 06/17/17 20:00 97.9 72 16 128/80 96 97.9 Intake and Output 06/17/17 06/18/17 19:00 07:00 Intake Total 930 ml 166.667 ml Output Total 1150 ml 500 ml Balance -220 ml -333.333 ml Intake Oral 680 ml IV Total 250 ml 166.667 ml Output Urine Total 1150 ml 500 ml # Bowel Movements 1 Objective General Appearance: WD/WN HEENT: normocephalic, atraumatic Respiratory/Chest: chest wall non-tender, lungs clear Breasts: no masses Cardiovascular: normal peripheral pulses, regular rhythm Abdomen: normal bowel sounds, soft, non tender Genitourinary: normal external genitalia Extremities: no cyanosis, aka Skin: extensive keratic lesions on leg Current Medications Medications (Trade) Dose Ordered Sig/Caden Route PRN Reason Start Time Stop Time Status Last Admin Dose Admin Acetaminophen (Tylenol) 650 mg Q4H PRN ORAL fever 05/20/17 21:45 06/19/17 21:44 05/21/17 10:25 Ceftriaxone Sodium 2 gm/ Dextrose 110 ml @ 220 mls/hr Q24H IVPB 06/05/17 21:00 07/02/17 20:59 06/17/17 20:53 Clonidine HCl (Catapres Tab) 0.1 mg EVERY 6 HOURS PRN ORAL SBP >160mmHg 05/31/17 17:00 06/30/17 16:59 06/10/17 13:56 Clotrimazole (Lotrimin) 1 applic EVERY 12 HOURS TOPIC 06/14/17 15:30 07/14/17 15:29 06/18/17 09:00 Dextrose (Dextrose 50%) 25 ml STAT PRN IV HYPOGLYCEMIA 06/16/17 09:45 07/16/17 09:44 Dextrose (Dextrose 50%) 50 ml STAT PRN IV Hypoglycemia 06/16/17 09:45 06/20/17 07:29 Heparin Sodium (Porcine) (Heparin 5000 units/ml) 5,000 units EVERY 12 HOURS SUBQ 05/21/17 09:00 06/20/17 08:59 06/18/17 09:54 Insulin Aspart (NovoLOG) BEFORE MEALS AND HS SUBQ 05/21/17 08:30 06/20/17 08:29 06/18/17 16:40 Insulin Aspart (NovoLOG) 4 units NOVOTIAC SUBQ 06/12/17 11:50 07/09/17 11:49 06/18/17 06:01 Insulin Detemir (Levemir) 12 units Q24H SUBQ 06/07/17 07:30 07/04/17 07:29 06/18/17 08:24 Lisinopril (Prinivil) 40 mg DAILY ORAL 06/12/17 09:00 07/04/17 08:59 06/18/17 09:38 Metronidazole (Flagyl) 500 mg Q6HR ORAL 06/07/17 18:00 06/21/17 17:59 06/18/17 12:16 Nitroglycerin (Ntg) 0.4 mg Every 5 Minutes PRN SL Prn Chest Pain 05/20/17 21:45 06/19/17 21:44 Ondansetron HCl (Zofran) 4 mg Q6H PRN IVP Nausea & Vomiting 05/20/17 21:45 06/19/17 21:44 Polyethylene Glycol (Miralax) 17 gm DAILYPRN PRN ORAL Constipation 05/20/17 21:45 06/19/17 21:44 Sodium Hypochlorite (Dakin's Quarter Strength) 1 applic DAILY TOPIC 05/23/17 09:00 06/22/17 08:59 06/18/17 09:38 Vancomycin HCl (Vanco rx to dose) 1 ea DAILYPRN PRN MISC RX TO DOSE PROTOCOL 05/28/17 17:15 07/02/17 17:14 Vancomycin HCl/ Dextrose 250 ml @ 166.667 mls/hr Q18H IVPB 06/07/17 18:00 07/02/17 17:59 06/18/17 05:37 Kyra Massey MD Jun 18, 2017 17:44
--- NOTE | 2017-06-18 18:29 | Infectious Diseases Prog Note ---
Assessment/Plan Assessment/Plan The patient is a 66-year-old male with Right foot cellulitis. right big toe. osteo -MRI R foot: Findings suspicious for osteomyelitis of the distal aspect of the first distal phalanx -wound cx E.fecalis ([place] S), CoNS (likely represents colonizers) Fever, SP Normal white blood cells Influenza screening tests : Neg Diabetes. Hyperlipidemia. Hypertension. Left BKA. History of alcohol abuse and smoking until recently. 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 PLAN: On IV vancomycin and Ceftriaxone abx d# / and Flagyl #18 for R 1st toe OM and foot cellulitis; ok to discharge on PO Bactrim DS 2 tab bid and PO Augmentin 875/125mg PO BId to complete course (Rx in chart) -05/24 SP Cefepime #4 Monitor CBC. Monitor BMP.. Subjective Constitutional: Denies: no symptoms, fever, chills, fatigue, anorexia, drenching sweats, other Allergies: Coded Allergies: No Known Allergies (Unverified , 11/16/14) Subjective comfortable Objective Vital Signs Last 24 Hour Vital Signs Date Time Temp Pulse Resp B/P (MAP) Pulse Ox O2 Delivery O2 Flow Rate FiO2 06/18/17 15:37 97.8 75 20 136/83 96 97.8 06/18/17 11:50 97.7 77 18 135/77 96 97.7 06/18/17 09:38 113/73 06/18/17 08:00 97.8 81 18 113/73 97 97.8 06/18/17 04:00 98.0 75 16 140/82 98 98.0 06/18/17 00:00 98.1 79 17 142/83 98 98.1 06/17/17 20:00 97.9 72 16 128/80 96 97.9 Height (Feet): 5 Height (Inches): 7.00 Weight (Pounds): 180 HEENT: anicteric Respiratory/Chest: normal breath sounds Cardiovascular: regular rhythm Abdomen: soft, non tender Current Medications Medications (Trade) Dose Ordered Sig/Caden Route PRN Reason Start Time Stop Time Status Last Admin Dose Admin Acetaminophen (Tylenol) 650 mg Q4H PRN ORAL fever 05/20/17 21:45 06/19/17 21:44 05/21/17 10:25 Ceftriaxone Sodium 2 gm/ Dextrose 110 ml @ 220 mls/hr Q24H IVPB 06/05/17 21:00 07/02/17 20:59 06/17/17 20:53 Clonidine HCl (Catapres Tab) 0.1 mg EVERY 6 HOURS PRN ORAL SBP >160mmHg 05/31/17 17:00 06/30/17 16:59 06/10/17 13:56 Clotrimazole (Lotrimin) 1 applic EVERY 12 HOURS TOPIC 06/14/17 15:30 07/14/17 15:29 06/18/17 09:00 Dextrose (Dextrose 50%) 25 ml STAT PRN IV HYPOGLYCEMIA 06/16/17 09:45 07/16/17 09:44 Dextrose (Dextrose 50%) 50 ml STAT PRN IV Hypoglycemia 06/16/17 09:45 06/20/17 07:29 Heparin Sodium (Porcine) (Heparin 5000 units/ml) 5,000 units EVERY 12 HOURS SUBQ 05/21/17 09:00 06/20/17 08:59 06/18/17 09:54 Insulin Aspart (NovoLOG) BEFORE MEALS AND HS SUBQ 05/21/17 08:30 06/20/17 08:29 06/18/17 16:40 Insulin Aspart (NovoLOG) 4 units NOVOTIAC SUBQ 06/12/17 11:50 07/09/17 11:49 06/18/17 17:55 Insulin Detemir (Levemir) 12 units Q24H SUBQ 06/07/17 07:30 07/04/17 07:29 06/18/17 08:24 Lisinopril (Prinivil) 40 mg DAILY ORAL 06/12/17 09:00 07/04/17 08:59 06/18/17 09:38 Metronidazole (Flagyl) 500 mg Q6HR ORAL 06/07/17 18:00 06/21/17 17:59 06/18/17 18:22 Nitroglycerin (Ntg) 0.4 mg Every 5 Minutes PRN SL Prn Chest Pain 05/20/17 21:45 06/19/17 21:44 Ondansetron HCl (Zofran) 4 mg Q6H PRN IVP Nausea & Vomiting 05/20/17 21:45 06/19/17 21:44 Polyethylene Glycol (Miralax) 17 gm DAILYPRN PRN ORAL Constipation 05/20/17 21:45 06/19/17 21:44 Sodium Hypochlorite (Dakin's Quarter Strength) 1 applic DAILY TOPIC 05/23/17 09:00 06/22/17 08:59 06/18/17 09:38 Vancomycin HCl (Vanco rx to dose) 1 ea DAILYPRN PRN MISC RX TO DOSE PROTOCOL 05/28/17 17:15 07/02/17 17:14 Vancomycin HCl/ Dextrose 250 ml @ 166.667 mls/hr Q18H IVPB 06/07/17 18:00 07/02/17 17:59 06/18/17 05:37 Yuriy Kelsey MD Jun 18, 2017 18:29
[2017-06-18 20:00] VITALS: BP 147/84
[2017-06-18] MEDS: cefTRIAXone 2 GM in D5W 110 ML IVPB SCH (21:28)
[2017-06-19] VITALS: BP 142/82
[2017-06-19] MEDS: Vancomycin 1250mg/D5W 250ml IVPB SCH ×2 (00:09→18:19)
[2017-06-19] MEDS: metroNIDAZOLE 500mg tab ORAL SCH ×4 (00:28→17:08)
[2017-06-19 04:00] VITALS: BP 128/81
[2017-06-19] MEDS: NovoLOG Insulin Flexpen SUBQ SCH ×7 (05:52→20:36)
[2017-06-19 08:19] VITALS: BP 99/66
[2017-06-19] MEDS: Dakin's 0.125% Soln (Quarter Strength) 16oz TOPIC SCH (08:42)
[2017-06-19] MEDS: Lisinopril 20mg tab ORAL SCH (08:47)
[2017-06-19] MEDS: Levemir Flexpen SUBQ SCH (08:47)
[2017-06-19] MEDS: Heparin 5000 units/ml inj SUBQ SCH ×2 (08:47→20:34)
[2017-06-19 12:06] VITALS: BP 101/62
[2017-06-19] MEDS ORDERED: Tubing IV Secondary IV ONE (14:58)
[2017-06-19 16:06] VITALS: BP 111/65
--- NOTE | 2017-06-19 17:53 | Pulmonology Progress Note ---
Assessment/Plan Problems: (1) Osteomyelitis of ankle or foot, acute (2) Cellulitis of right lower extremity (3) Ulcer of heel and midfoot (4) ETOH abuse (5) HTN (hypertension) (6) Diabetes (7) Anemia (8) S/P BKA (below knee amputation) Assessment/Plan continue abx, residential check cutlurees pt/ot eating better, leg wounds looks better f/u ID recommendations dc planning to a alf \ Subjective ROS Limited/Unobtainable: No Allergies: Coded Allergies: No Known Allergies (Unverified , 11/16/14) Objective Last 24 Hour Vital Signs Date Time Temp Pulse Resp B/P (MAP) Pulse Ox O2 Delivery O2 Flow Rate FiO2 06/19/17 16:07 Room Air 06/19/17 16:06 98.0 78 20 111/65 95 98.0 06/19/17 12:06 Room Air 06/19/17 12:06 98.2 75 20 101/62 95 98.2 06/19/17 08:47 99/66 06/19/17 08:19 Room Air 06/19/17 08:19 97.9 77 20 99/66 95 97.9 06/19/17 04:00 97.7 75 18 128/81 93 97.7 06/19/17 00:00 98.2 74 17 142/82 100 98.2 06/18/17 20:00 98.1 76 16 147/84 95 98.1 Intake and Output 06/18/17 06/19/17 19:00 07:00 Intake Total 813.333 ml 540.000 ml Output Total 700 ml 500 ml Balance 113.333 ml 40.000 ml Intake Oral 730 ml 180 ml IV Total 83.333 ml 360.000 ml Output Urine Total 700 ml 500 ml # Bowel Movements 2 1 Objective General Appearance: WD/WN HEENT: normocephalic, atraumatic Respiratory/Chest: chest wall non-tender, lungs clear Breasts: no masses Cardiovascular: normal peripheral pulses, regular rhythm Abdomen: normal bowel sounds, soft, non tender Genitourinary: normal external genitalia Extremities: no cyanosis, aka Skin: extensive keratic lesions on leg Laboratory Tests 06/18/17 22:45: Vancomycin Level Trough 18.3H Current Medications Medications (Trade) Dose Ordered Sig/Caden Route PRN Reason Start Time Stop Time Status Last Admin Dose Admin Acetaminophen (Tylenol) 650 mg Q4H PRN ORAL fever 05/20/17 21:45 06/19/17 21:44 05/21/17 10:25 Ceftriaxone Sodium 2 gm/ Dextrose 110 ml @ 220 mls/hr Q24H IVPB 06/05/17 21:00 07/02/17 20:59 06/18/17 21:28 Clonidine HCl (Catapres Tab) 0.1 mg EVERY 6 HOURS PRN ORAL SBP >160mmHg 05/31/17 17:00 06/30/17 16:59 06/10/17 13:56 Clotrimazole (Lotrimin) 1 applic EVERY 12 HOURS TOPIC 06/14/17 15:30 07/14/17 15:29 06/19/17 08:42 Dextrose (Dextrose 50%) 25 ml STAT PRN IV HYPOGLYCEMIA 06/16/17 09:45 07/16/17 09:44 Dextrose (Dextrose 50%) 50 ml STAT PRN IV Hypoglycemia 06/16/17 09:45 06/20/17 07:29 Heparin Sodium (Porcine) (Heparin 5000 units/ml) 5,000 units EVERY 12 HOURS SUBQ 05/21/17 09:00 06/20/17 08:59 06/19/17 08:47 Insulin Aspart (NovoLOG) BEFORE MEALS AND HS SUBQ 05/21/17 08:30 06/20/17 08:29 06/19/17 16:54 Insulin Aspart (NovoLOG) 4 units NOVOTIAC SUBQ 06/12/17 11:50 07/09/17 11:49 06/19/17 16:53 Insulin Detemir (Levemir) 12 units Q24H SUBQ 06/07/17 07:30 07/04/17 07:29 06/19/17 08:47 Lisinopril (Prinivil) 40 mg DAILY ORAL 06/12/17 09:00 07/04/17 08:59 06/18/17 09:38 Metronidazole (Flagyl) 500 mg Q6HR ORAL 06/07/17 18:00 06/21/17 17:59 06/19/17 17:08 Nitroglycerin (Ntg) 0.4 mg Every 5 Minutes PRN SL Prn Chest Pain 05/20/17 21:45 06/19/17 21:44 Ondansetron HCl (Zofran) 4 mg Q6H PRN IVP Nausea & Vomiting 05/20/17 21:45 06/19/17 21:44 Polyethylene Glycol (Miralax) 17 gm DAILYPRN PRN ORAL Constipation 05/20/17 21:45 06/19/17 21:44 Sodium Hypochlorite (Dakin's Quarter Strength) 1 applic DAILY TOPIC 05/23/17 09:00 06/22/17 08:59 06/19/17 08:42 Vancomycin HCl (Vanco rx to dose) 1 ea DAILYPRN PRN MISC RX TO DOSE PROTOCOL 05/28/17 17:15 07/02/17 17:14 Vancomycin HCl/ Dextrose 250 ml @ 166.667 mls/hr Q18H IVPB 06/07/17 18:00 07/02/17 17:59 06/19/17 00:09 Kyra Massey MD Jun 19, 2017 17:53
[2017-06-19 20:20] VITALS: BP 165/92
[2017-06-19] MEDS: cefTRIAXone 2 GM in D5W 110 ML IVPB SCH (20:54)
[2017-06-20] MEDS: metroNIDAZOLE 500mg tab ORAL SCH ×5 (00:20→23:26)
[2017-06-20 00:31] VITALS: BP 141/85
[2017-06-20 04:00] VITALS: BP 133/75
[2017-06-20] MEDS: NovoLOG Insulin Flexpen SUBQ SCH ×8 (05:47→20:46)
[2017-06-20 08:06] VITALS: BP 100/61
[2017-06-20] MEDS: Lisinopril 20mg tab ORAL SCH (08:15)
[2017-06-20] MEDS: Levemir Flexpen SUBQ SCH (08:21)
[2017-06-20] MEDS: Dakin's 0.125% Soln (Quarter Strength) 16oz TOPIC SCH (08:23)
[2017-06-20] MEDS: Heparin 5000 units/ml inj SUBQ SCH ×2 (10:56→20:52)
[2017-06-20] MEDS: Vancomycin 1250mg/D5W 250ml IVPB SCH (11:57)
[2017-06-20 12:02] VITALS: BP 129/80
--- NOTE | 2017-06-20 15:58 | Infectious Diseases Prog Note ---
Assessment/Plan Assessment/Plan The patient is a 66-year-old male with Right foot cellulitis. right big toe. osteo -MRI R foot: Findings suspicious for osteomyelitis of the distal aspect of the first distal phalanx -wound cx E.fecalis ([place] S), CoNS (likely represents colonizers) Fever, SP Normal white blood cells Influenza screening tests : Neg Diabetes. Hyperlipidemia. Hypertension. Left BKA. History of alcohol abuse and smoking until recently. 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 PLAN: On IV vancomycin and Ceftriaxone and Flagyl ( abx d# 31/ ) for R 1st toe OM and foot cellulitis; ok to discharge on PO Bactrim DS 2 tab bid and PO Augmentin 875/125mg PO BId to complete course (Rx in chart) -05/24 SP Cefepime #4 Monitor CBC. Monitor BMP.. Subjective Constitutional: Denies: no symptoms, fever, chills, fatigue, anorexia, drenching sweats, other Allergies: Coded Allergies: No Known Allergies (Unverified , 11/16/14) Subjective comfortable Objective Vital Signs Last 24 Hour Vital Signs Date Time Temp Pulse Resp B/P (MAP) Pulse Ox O2 Delivery O2 Flow Rate FiO2 06/20/17 12:02 98.2 83 18 129/80 95 Room Air 98.2 06/20/17 08:15 100/61 06/20/17 08:06 99.1 71 18 100/61 100 Room Air 99.1 06/20/17 04:00 98.6 73 17 133/75 97 98.6 06/20/17 00:31 98.7 74 18 141/85 97 98.7 06/19/17 20:32 165/92 06/19/17 20:20 98.3 78 17 165/92 96 98.3 06/19/17 16:07 Room Air 06/19/17 16:06 98.0 78 20 111/65 95 98.0 Height (Feet): 5 Height (Inches): 7.00 Weight (Pounds): 180 HEENT: anicteric Respiratory/Chest: no respiratory distress Cardiovascular: regular rhythm Abdomen: no organomegaly Current Medications Medications (Trade) Dose Ordered Sig/Caden Route PRN Reason Start Time Stop Time Status Last Admin Dose Admin Ceftriaxone Sodium 2 gm/ Dextrose 110 ml @ 220 mls/hr Q24H IVPB 3/24/18 21:00 07/02/17 20:59 06/19/17 20:54 Clonidine HCl (Catapres Tab) 0.1 mg EVERY 6 HOURS PRN ORAL SBP >160mmHg 05/31/17 17:00 06/30/17 16:59 06/19/17 20:32 Clotrimazole (Lotrimin) 1 applic EVERY 12 HOURS TOPIC 06/14/17 15:30 07/14/17 15:29 06/20/17 08:24 Dextrose (Dextrose 50%) 25 ml STAT PRN IV Hypoglycemia 06/20/17 12:15 07/20/17 12:14 Dextrose (Dextrose 50%) 50 ml STAT PRN IV Hypoglycemia 06/20/17 12:00 07/20/17 11:59 Heparin Sodium (Porcine) (Heparin 5000 units/ml) 5,000 units EVERY 12 HOURS SUBQ 06/20/17 10:30 07/20/17 10:29 06/20/17 10:56 Insulin Aspart (NovoLOG) BEFORE MEALS AND HS SUBQ 06/20/17 12:45 07/20/17 12:44 06/20/17 12:54 Insulin Aspart (NovoLOG) 4 units NOVOTIAC SUBQ 06/12/17 11:50 07/09/17 11:49 06/20/17 12:53 Insulin Detemir (Levemir) 12 units Q24H SUBQ 06/07/17 07:30 07/04/17 07:29 06/20/17 08:21 Lisinopril (Prinivil) 40 mg DAILY ORAL 06/12/17 09:00 07/04/17 08:59 06/18/17 09:38 Metronidazole (Flagyl) 500 mg Q6HR ORAL 06/07/17 18:00 07/02/17 19:00 06/20/17 11:52 Sodium Hypochlorite (Dakin's Quarter Strength) 1 applic DAILY TOPIC 05/23/17 09:00 06/22/17 08:59 06/20/17 08:23 Vancomycin HCl (Vanco rx to dose) 1 ea DAILYPRN PRN MISC RX TO DOSE PROTOCOL 05/28/17 17:15 07/02/17 17:14 Vancomycin HCl/ Dextrose 250 ml @ 166.667 mls/hr Q18H IVPB 06/07/17 18:00 07/02/17 17:59 06/20/17 11:57 Yuriy Kelsey MD Jun 20, 2017 15:58
[2017-06-20 16:03] VITALS: BP 123/68
--- NOTE | 2017-06-20 16:10 | Pulmonology Progress Note ---
Assessment/Plan Problems: (1) Osteomyelitis of ankle or foot, acute (2) Cellulitis of right lower extremity (3) Ulcer of heel and midfoot (4) ETOH abuse (5) HTN (hypertension) (6) Diabetes (7) Anemia (8) S/P BKA (below knee amputation) Assessment/Plan continue abx, prison check cultures pt/ot eating better, leg wounds looks better f/u ID recommendations dc planning to a custodial \ Subjective ROS Limited/Unobtainable: No Constitutional: Reports: no symptoms HEENT: Repors: no symptoms Respiratory: Reports: no symptoms Allergies: Coded Allergies: No Known Allergies (Unverified , 11/16/14) Objective Last 24 Hour Vital Signs Date Time Temp Pulse Resp B/P (MAP) Pulse Ox O2 Delivery O2 Flow Rate FiO2 06/20/17 16:03 98.1 70 18 123/68 94 Room Air 98.1 06/20/17 12:02 98.2 83 18 129/80 95 Room Air 98.2 06/20/17 08:15 100/61 06/20/17 08:06 99.1 71 18 100/61 100 Room Air 99.1 06/20/17 04:00 98.6 73 17 133/75 97 98.6 06/20/17 00:31 98.7 74 18 141/85 97 98.7 06/19/17 20:32 165/92 06/19/17 20:20 98.3 78 17 165/92 96 98.3 Intake and Output 06/19/17 06/20/17 19:00 07:00 Intake Total 960 ml 840.000 ml Output Total 400 ml 700 ml Balance 560 ml 140.000 ml Intake Oral 960 ml 480 ml IV Total 360.000 ml Output Urine Total 400 ml 700 ml Objective General Appearance: WD/WN HEENT: normocephalic, atraumatic Respiratory/Chest: chest wall non-tender, lungs clear Breasts: no masses Cardiovascular: normal peripheral pulses, regular rhythm Abdomen: normal bowel sounds, soft, non tender Genitourinary: normal external genitalia Extremities: no cyanosis, aka Skin: extensive keratic lesions on leg Current Medications Medications (Trade) Dose Ordered Sig/Caden Route PRN Reason Start Time Stop Time Status Last Admin Dose Admin Ceftriaxone Sodium 2 gm/ Dextrose 110 ml @ 220 mls/hr Q24H IVPB 06/05/17 21:00 07/02/17 20:59 06/19/17 20:54 Clonidine HCl (Catapres Tab) 0.1 mg EVERY 6 HOURS PRN ORAL SBP >160mmHg 05/31/17 17:00 06/30/17 16:59 06/19/17 20:32 Clotrimazole (Lotrimin) 1 applic EVERY 12 HOURS TOPIC 06/14/17 15:30 07/14/17 15:29 06/20/17 08:24 Dextrose (Dextrose 50%) 25 ml STAT PRN IV Hypoglycemia 06/20/17 12:15 07/20/17 12:14 Dextrose (Dextrose 50%) 50 ml STAT PRN IV Hypoglycemia 06/20/17 12:00 07/20/17 11:59 Heparin Sodium (Porcine) (Heparin 5000 units/ml) 5,000 units EVERY 12 HOURS SUBQ 06/20/17 10:30 07/20/17 10:29 06/20/17 10:56 Insulin Aspart (NovoLOG) BEFORE MEALS AND HS SUBQ 06/20/17 12:45 07/20/17 12:44 06/20/17 12:54 Insulin Aspart (NovoLOG) 4 units NOVOTIAC SUBQ 06/12/17 11:50 07/09/17 11:49 06/20/17 12:53 Insulin Detemir (Levemir) 12 units Q24H SUBQ 06/07/17 07:30 07/04/17 07:29 06/20/17 08:21 Lisinopril (Prinivil) 40 mg DAILY ORAL 06/12/17 09:00 07/04/17 08:59 06/18/17 09:38 Metronidazole (Flagyl) 500 mg Q6HR ORAL 06/07/17 18:00 07/02/17 19:00 06/20/17 11:52 Sodium Hypochlorite (Dakin's Quarter Strength) 1 applic DAILY TOPIC 05/23/17 09:00 06/22/17 08:59 06/20/17 08:23 Vancomycin HCl (Vanco rx to dose) 1 ea DAILYPRN PRN MISC RX TO DOSE PROTOCOL 05/28/17 17:15 07/02/17 17:14 Vancomycin HCl/ Dextrose 250 ml @ 166.667 mls/hr Q18H IVPB 06/07/17 18:00 07/02/17 17:59 06/20/17 11:57 Kyra Massey MD Jun 20, 2017 16:10
[2017-06-20] MEDS ORDERED: NovoLOG Insulin Flexpen SUBQ SCH (16:30)
[2017-06-20 20:00] VITALS: BP 153/86
[2017-06-20] MEDS: cefTRIAXone 2 GM in D5W 110 ML IVPB SCH (20:46)
[2017-06-21] VITALS: BP 142/73
[2017-06-21 04:00] VITALS: BP 145/82
[2017-06-21] MEDS: metroNIDAZOLE 500mg tab ORAL SCH ×3 (05:43→18:01)
[2017-06-21] MEDS: NovoLOG Insulin Flexpen SUBQ SCH ×7 (05:46→21:22)
[2017-06-21] MEDS: Vancomycin 1250mg/D5W 250ml IVPB SCH (06:20)
[2017-06-21 07:18] LABS: BASOPHILS % (AUTO) 1.6 % (0.0-2.0); EOSINOPHILS % (AUTO) 4.6 % (0.0-3.0); HEMATOCRIT 39.3 % (42.0-52.0); HEMOGLOBIN 12.6 G/DL (14.2-18.0); LYMPHOCYTES % (AUTO) 33.8 % (20.0-45.0); MEAN CORPUSCULAR VOLUME 86 FL (80-99); MONOCYTES % (AUTO) 10.9 % (1.0-10.0); NEUTROPHILS % (AUTO) 49.1 % (45.0-75.0); PLATELET COUNT 169 K/UL (150-450); RED BLOOD COUNT 4.54 M/UL (4.70-6.10); RED CELL DISTRIBUTION WIDTH 11.7 % (11.6-14.8)
[2017-06-21 08:00] VITALS: BP 120/68
[2017-06-21 08:03] LABS: ALANINE AMINOTRANSFERASE 22 U/L (12-78); ALBUMIN 2.8 G/DL (3.4-5.0); ALBUMIN/GLOBULIN RATIO 0.7 (1.0-2.7); ALKALINE PHOSPHATASE 45 U/L (46-116); ANION GAP 5 mmol/L (5-15); ASPARTATE AMINO TRANSFERASE 26 U/L (15-37); BILIRUBIN,TOTAL 0.2 MG/DL (0.2-1.0); BLOOD UREA NITROGEN 12 mg/dL (7-18); CALCIUM 8.8 MG/DL (8.5-10.1); CARBON DIOXIDE 30 MMOL/L (21-32); CHLORIDE 100 MMOL/L (98-107); PHOSPHORUS 3.7 MG/DL (2.5-4.9); POTASSIUM 4.1 MMOL/L (3.5-5.1); SODIUM 135 MMOL/L (136-145)
[2017-06-21] MEDS: Levemir Flexpen SUBQ SCH (08:28)
[2017-06-21] MEDS: Heparin 5000 units/ml inj SUBQ SCH ×2 (10:07→21:23)
[2017-06-21] MEDS: Dakin's 0.125% Soln (Quarter Strength) 16oz TOPIC SCH (10:10)
[2017-06-21] MEDS: Lisinopril 20mg tab ORAL SCH (10:10)
[2017-06-21] MEDS ORDERED: NS 275ml ONE (10:49)
[2017-06-21] MEDS ORDERED: Tubing IV Secondary IV ONE (10:49)
[2017-06-21 12:00] VITALS: BP 135/82
[2017-06-21 15:50] VITALS: BP 149/77
--- NOTE | 2017-06-21 19:39 | Pulmonology Progress Note ---
Assessment/Plan Problems: (1) Osteomyelitis of ankle or foot, acute (2) Cellulitis of right lower extremity (3) Ulcer of heel and midfoot (4) ETOH abuse (5) HTN (hypertension) (6) Diabetes (7) Anemia (8) S/P BKA (below knee amputation) Assessment/Plan continue abx, [facility] check cultures pt/ot eating better, leg wounds looks better f/u ID recommendations dc planning to a detention \ Subjective ROS Limited/Unobtainable: No Constitutional: Reports: no symptoms HEENT: Repors: no symptoms Respiratory: Reports: no symptoms Allergies: Coded Allergies: No Known Allergies (Unverified , 11/16/14) Objective Last 24 Hour Vital Signs Date Time Temp Pulse Resp B/P (MAP) Pulse Ox O2 Delivery O2 Flow Rate FiO2 06/21/17 15:50 98.1 70 18 149/77 96 98.1 06/21/17 12:00 97.9 69 20 135/82 99 97.9 06/21/17 10:10 120/68 06/21/17 08:00 98.1 70 20 120/68 99 98.1 06/21/17 04:00 98.1 76 18 145/82 96 98.1 06/21/17 00:00 98.2 69 20 142/73 97 Room Air 98.2 06/20/17 20:00 98.4 73 19 153/86 97 Room Air 98.4 Intake and Output 06/20/17 06/21/17 19:00 07:00 Intake Total 1200 ml 990 ml Output Total 1100 ml 1250 ml Balance 100 ml -260 ml Intake Oral 1200 ml 880 ml IV Total 110 ml Output Urine Total 1100 ml 1250 ml # Bowel Movements 1 2 Objective General Appearance: WD/WN HEENT: normocephalic, atraumatic Respiratory/Chest: chest wall non-tender, lungs clear Breasts: no masses Cardiovascular: normal peripheral pulses, regular rhythm Abdomen: normal bowel sounds, soft, non tender Genitourinary: normal external genitalia Extremities: no cyanosis, aka Skin: extensive keratic lesions on leg Laboratory Tests 06/21/17 05:40: White Blood Count 7.0, Red Blood Count 4.54L, Hemoglobin 12.6L, Hematocrit 39.3L , Mean Corpuscular Volume 86, Mean Corpuscular Hemoglobin 27.8, Mean Corpuscular Hemoglobin Concent 32.2, Red Cell Distribution Width 11.7, Platelet Count 169, Mean Platelet Volume 10.2H, Neutrophils (%) (Auto) 49.1, Lymphocytes (%) (Auto) 33.8, Monocytes (%) (Auto) 10.9H, Eosinophils (%) (Auto) 4.6H, Basophils (%) (Auto) 1.6, Sodium Level 135L, Potassium Level 4.1, Chloride Level 100, Carbon Dioxide Level 30, Anion Gap 5, Blood Urea Nitrogen 12, Creatinine 1.0, Estimat Glomerular Filtration Rate > 60, Glucose Level 206H, Calcium Level 8.8, Phosphorus Level 3.7, Magnesium Level 1.7L, Total Bilirubin 0.2, Aspartate Amino Transf (AST/SGOT) 26, Alanine Aminotransferase (ALT/SGPT) 22, Alkaline Phosphatase 45L, Total Protein 7.1, Albumin 2.8L, Globulin 4.3, Albumin/Globulin Ratio 0.7L Current Medications Medications (Trade) Dose Ordered Sig/Caden Route PRN Reason Start Time Stop Time Status Last Admin Dose Admin Ceftriaxone Sodium 2 gm/ Dextrose 110 ml @ 220 mls/hr Q24H IVPB 06/05/17 21:00 07/02/17 20:59 06/20/17 20:46 Clonidine HCl (Catapres Tab) 0.1 mg EVERY 6 HOURS PRN ORAL SBP >160mmHg 05/31/17 17:00 06/30/17 16:59 06/19/17 20:32 Clotrimazole (Lotrimin) 1 applic EVERY 12 HOURS TOPIC 06/14/17 15:30 07/14/17 15:29 06/21/17 10:10 Dextrose (Dextrose 50%) 25 ml STAT PRN IV Hypoglycemia 06/20/17 12:15 07/20/17 12:14 Dextrose (Dextrose 50%) 50 ml STAT PRN IV Hypoglycemia 06/20/17 12:00 07/20/17 11:59 Heparin Sodium (Porcine) (Heparin 5000 units/ml) 5,000 units EVERY 12 HOURS SUBQ 06/20/17 10:30 07/20/17 10:29 06/20/17 20:52 Insulin Aspart (NovoLOG) BEFORE MEALS AND HS SUBQ 06/20/17 12:45 07/20/17 12:44 06/21/17 16:54 Insulin Aspart (NovoLOG) 4 units NOVOTIAC SUBQ 06/12/17 11:50 07/09/17 11:49 06/21/17 12:33 Insulin Detemir (Levemir) 12 units Q24H SUBQ 06/07/17 07:30 07/04/17 07:29 06/21/17 08:28 Lisinopril (Prinivil) 40 mg DAILY ORAL 06/12/17 09:00 07/04/17 08:59 06/21/17 10:10 Metronidazole (Flagyl) 500 mg Q6HR ORAL 06/07/17 18:00 07/02/17 19:00 06/21/17 18:01 Sodium Hypochlorite (Dakin's Quarter Strength) 1 applic DAILY TOPIC 05/23/17 09:00 06/22/17 08:59 06/21/17 10:10 Vancomycin HCl (Vanco rx to dose) 1 ea DAILYPRN PRN MISC RX TO DOSE PROTOCOL 05/28/17 17:15 07/02/17 17:14 Vancomycin HCl/ Dextrose 250 ml @ 166.667 mls/hr Q18H IVPB 06/07/17 18:00 07/02/17 17:59 06/21/17 06:20 Kyra Massey MD Jun 21, 2017 19:39
[2017-06-21 20:00] VITALS: BP 140/90
--- NOTE | 2017-06-21 20:13 | Infectious Diseases Prog Note ---
Assessment/Plan Assessment/Plan The patient is a 66-year-old male with Right foot cellulitis. right big toe. osteo -MRI R foot: Findings suspicious for osteomyelitis of the distal aspect of the first distal phalanx -wound cx E.fecalis ([place] S), CoNS (likely represents colonizers) Fever, SP Normal white blood cells Influenza screening tests : Neg Diabetes. Hyperlipidemia. Hypertension. Left BKA. History of alcohol abuse and smoking until recently. 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 PLAN: On IV vancomycin and Ceftriaxone and Flagyl ( abx d# 32/42 ) for R 1st toe OM and foot cellulitis; ok to discharge on PO Bactrim DS 2 tab bid and PO Augmentin 875/125mg PO BId to complete course (Rx in chart) -05/24 SP Cefepime #4 Monitor CBC. Monitor BMP.. Subjective Constitutional: Denies: no symptoms, fever, chills, fatigue, anorexia, drenching sweats, other Allergies: Coded Allergies: No Known Allergies (Unverified , 11/16/14) Subjective comfortable Objective Vital Signs Last 24 Hour Vital Signs Date Time Temp Pulse Resp B/P (MAP) Pulse Ox O2 Delivery O2 Flow Rate FiO2 06/21/17 15:50 98.1 70 18 149/77 96 98.1 06/21/17 12:00 97.9 69 20 135/82 99 97.9 06/21/17 10:10 120/68 06/21/17 08:00 98.1 70 20 120/68 99 98.1 06/21/17 04:00 98.1 76 18 145/82 96 98.1 06/21/17 00:00 98.2 69 20 142/73 97 Room Air 98.2 Height (Feet): 5 Height (Inches): 7.00 Weight (Pounds): 180 HEENT: atraumatic Respiratory/Chest: no respiratory distress Cardiovascular: regularly irregular Abdomen: non distended Laboratory Tests Test 06/21/17 05:40 White Blood Count 7.0 K/UL (4.8-10.8) Red Blood Count 4.54 M/UL (4.70-6.10) L Hemoglobin 12.6 G/DL (14.2-18.0) L Hematocrit 39.3 % (42.0-52.0) L Mean Corpuscular Volume 86 FL (80-99) Mean Corpuscular Hemoglobin 27.8 PG (27.0-31.0) Mean Corpuscular Hemoglobin Concent 32.2 G/DL (32.0-36.0) Red Cell Distribution Width 11.7 % (11.6-14.8) Platelet Count 169 K/UL (150-450) Mean Platelet Volume 10.2 FL (6.5-10.1) H Neutrophils (%) (Auto) 49.1 % (45.0-75.0) Lymphocytes (%) (Auto) 33.8 % (20.0-45.0) Monocytes (%) (Auto) 10.9 % (1.0-10.0) H Eosinophils (%) (Auto) 4.6 % (0.0-3.0) H Basophils (%) (Auto) 1.6 % (0.0-2.0) Sodium Level 135 MMOL/L (136-145) L Potassium Level 4.1 MMOL/L (3.5-5.1) Chloride Level 100 MMOL/L (98-107) Carbon Dioxide Level 30 MMOL/L (21-32) Anion Gap 5 mmol/L (5-15) Blood Urea Nitrogen 12 mg/dL (7-18) Creatinine 1.0 MG/DL (0.55-1.30) Estimat Glomerular Filtration Rate > 60 mL/min (>60) Glucose Level 206 MG/DL (74-106) H Calcium Level 8.8 MG/DL (8.5-10.1) Phosphorus Level 3.7 MG/DL (2.5-4.9) Magnesium Level 1.7 MG/DL (1.8-2.4) L Total Bilirubin 0.2 MG/DL (0.2-1.0) Aspartate Amino Transf (AST/SGOT) 26 U/L (15-37) Alanine Aminotransferase (ALT/SGPT) 22 U/L (12-78) Alkaline Phosphatase 45 U/L (46-116) L Total Protein 7.1 G/DL (6.4-8.2) Albumin 2.8 G/DL (3.4-5.0) L Globulin 4.3 g/dL Albumin/Globulin Ratio 0.7 (1.0-2.7) L Current Medications Medications (Trade) Dose Ordered Sig/Caden Route PRN Reason Start Time Stop Time Status Last Admin Dose Admin Ceftriaxone Sodium 2 gm/ Dextrose 110 ml @ 220 mls/hr Q24H IVPB 06/05/17 21:00 07/02/17 20:59 06/20/17 20:46 Clonidine HCl (Catapres Tab) 0.1 mg EVERY 6 HOURS PRN ORAL SBP >160mmHg 05/31/17 17:00 06/30/17 16:59 06/19/17 20:32 Clotrimazole (Lotrimin) 1 applic EVERY 12 HOURS TOPIC 06/14/17 15:30 07/14/17 15:29 06/21/17 10:10 Dextrose (Dextrose 50%) 25 ml STAT PRN IV Hypoglycemia 06/20/17 12:15 07/20/17 12:14 Dextrose (Dextrose 50%) 50 ml STAT PRN IV Hypoglycemia 06/20/17 12:00 07/20/17 11:59 Heparin Sodium (Porcine) (Heparin 5000 units/ml) 5,000 units EVERY 12 HOURS SUBQ 06/20/17 10:30 07/20/17 10:29 06/20/17 20:52 Insulin Aspart (NovoLOG) BEFORE MEALS AND HS SUBQ 06/20/17 12:45 07/20/17 12:44 06/21/17 16:54 Insulin Aspart (NovoLOG) 4 units NOVOTIAC SUBQ 06/12/17 11:50 07/09/17 11:49 06/21/17 12:33 Insulin Detemir (Levemir) 12 units Q24H SUBQ 06/07/17 07:30 07/04/17 07:29 06/21/17 08:28 Lisinopril (Prinivil) 40 mg DAILY ORAL 06/12/17 09:00 07/04/17 08:59 06/21/17 10:10 Metronidazole (Flagyl) 500 mg Q6HR ORAL 06/07/17 18:00 07/02/17 19:00 06/21/17 18:01 Sodium Hypochlorite (Dakin's Quarter Strength) 1 applic DAILY TOPIC 05/23/17 09:00 06/22/17 08:59 06/21/17 10:10 Vancomycin HCl (Vanco rx to dose) 1 ea DAILYPRN PRN MISC RX TO DOSE PROTOCOL 05/28/17 17:15 4/20/18 17:14 Vancomycin HCl/ Dextrose 250 ml @ 166.667 mls/hr Q18H IVPB 06/07/17 18:00 07/02/17 17:59 06/21/17 06:20 Yuriy Kelsey MD Jun 21, 2017 20:13
[2017-06-21] MEDS: cefTRIAXone 2 GM in D5W 110 ML IVPB SCH (21:20)
[2017-06-22] VITALS (7 sets, daily range): BP systolic 107–158; BP diastolic 65–94
[2017-06-22] MEDS: metroNIDAZOLE 500mg tab ORAL SCH ×4 (00:56→17:15)
[2017-06-22] MEDS: Vancomycin 1250mg/D5W 250ml IVPB SCH ×2 (00:57→17:29)
[2017-06-22] MEDS: NovoLOG Insulin Flexpen SUBQ SCH ×7 (06:32→21:31)
[2017-06-22] MEDS: Lisinopril 20mg tab ORAL SCH (08:20)
[2017-06-22] MEDS: Levemir Flexpen SUBQ SCH (08:21)
[2017-06-22] MEDS: Heparin 5000 units/ml inj SUBQ SCH ×2 (08:22→21:32)
--- NOTE | 2017-06-22 10:49 | Infectious Diseases Prog Note ---
Assessment/Plan Assessment/Plan The patient is a 66-year-old male with Right foot cellulitis. right big toe. osteo -MRI R foot: Findings suspicious for osteomyelitis of the distal aspect of the first distal phalanx -wound cx E.fecalis ([place] S), CoNS (likely represents colonizers) Fever, SP Normal white blood cells Influenza screening tests : Neg Diabetes. Hyperlipidemia. Hypertension. Left BKA. History of alcohol abuse and smoking until recently. 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 PLAN: On IV vancomycin and Ceftriaxone and Flagyl ( abx d# 33/42 ) for R 1st toe OM and foot cellulitis; ok to discharge on PO Bactrim DS 2 tab bid and PO Augmentin 875/125mg PO BId to complete course (Rx in chart) -05/24 SP Cefepime #4 Monitor CBC. Monitor BMP.. Subjective Constitutional: Denies: no symptoms, fever, chills, fatigue, anorexia, drenching sweats, other Allergies: Coded Allergies: No Known Allergies (Unverified , 11/16/14) Subjective comfortable Objective Vital Signs Last 24 Hour Vital Signs Date Time Temp Pulse Resp B/P (MAP) Pulse Ox O2 Delivery O2 Flow Rate FiO2 06/22/17 08:20 136/75 06/22/17 08:00 97.9 80 18 107/65 97 97.9 06/22/17 04:00 98.4 76 18 136/75 94 Room Air 98.4 06/22/17 00:00 99.5 95 20 154/87 95 Room Air 99.5 06/21/17 20:00 99.7 75 20 140/90 95 Room Air 99.7 06/21/17 15:50 98.1 70 18 149/77 96 98.1 06/21/17 12:00 97.9 69 20 135/82 99 97.9 Height (Feet): 5 Height (Inches): 7.00 Weight (Pounds): 180 HEENT: mucous membranes moist Respiratory/Chest: no respiratory distress Cardiovascular: regular rhythm Abdomen: non distended Current Medications Medications (Trade) Dose Ordered Sig/Caden Route PRN Reason Start Time Stop Time Status Last Admin Dose Admin Ceftriaxone Sodium 2 gm/ Dextrose 110 ml @ 220 mls/hr Q24H IVPB 06/05/17 21:00 07/02/17 20:59 06/21/17 21:20 Clonidine HCl (Catapres Tab) 0.1 mg EVERY 6 HOURS PRN ORAL SBP >160mmHg 05/31/17 17:00 06/30/17 16:59 06/19/17 20:32 Clotrimazole (Lotrimin) 1 applic EVERY 12 HOURS TOPIC 06/14/17 15:30 07/14/17 15:29 06/22/17 08:22 Dextrose (Dextrose 50%) 25 ml STAT PRN IV Hypoglycemia 06/20/17 12:15 07/20/17 12:14 Dextrose (Dextrose 50%) 50 ml STAT PRN IV Hypoglycemia 06/20/17 12:00 07/20/17 11:59 Heparin Sodium (Porcine) (Heparin 5000 units/ml) 5,000 units EVERY 12 HOURS SUBQ 06/20/17 10:30 07/20/17 10:29 06/22/17 08:22 Insulin Aspart (NovoLOG) BEFORE MEALS AND HS SUBQ 06/20/17 12:45 07/20/17 12:44 06/22/17 06:34 Insulin Aspart (NovoLOG) 4 units NOVOTIAC SUBQ 06/12/17 11:50 07/09/17 11:49 06/22/17 06:32 Insulin Detemir (Levemir) 12 units Q24H SUBQ 06/07/17 07:30 07/04/17 07:29 06/22/17 08:21 Lisinopril (Prinivil) 40 mg DAILY ORAL 06/12/17 09:00 07/04/17 08:59 06/22/17 08:20 Metronidazole (Flagyl) 500 mg Q6HR ORAL 06/07/17 18:00 07/02/17 19:00 06/22/17 06:30 Vancomycin HCl (Vanco rx to dose) 1 ea DAILYPRN PRN MISC RX TO DOSE PROTOCOL 05/28/17 17:15 07/02/17 17:14 Vancomycin HCl/ Dextrose 250 ml @ 166.667 mls/hr Q18H IVPB 06/07/17 18:00 07/02/17 17:59 06/22/17 00:57 Yuriy Kelsey MD Jun 22, 2017 10:49
--- NOTE | 2017-06-22 20:08 | Pulmonology Progress Note ---
Assessment/Plan Problems: (1) Osteomyelitis of ankle or foot, acute (2) Cellulitis of right lower extremity (3) Ulcer of heel and midfoot (4) ETOH abuse (5) HTN (hypertension) (6) Diabetes (7) Anemia (8) S/P BKA (below knee amputation) Assessment/Plan continue abx, care home , flagyl vancomycin skin getting much better pt/ot eating better, leg wounds looks better f/u ID recommendations dc planning to a long term \ Subjective ROS Limited/Unobtainable: No Allergies: Coded Allergies: No Known Allergies (Unverified , 11/16/14) Objective Last 24 Hour Vital Signs Date Time Temp Pulse Resp B/P (MAP) Pulse Ox O2 Delivery O2 Flow Rate FiO2 06/22/17 15:45 98.1 75 18 145/81 97 98.1 06/22/17 11:41 98.2 73 19 149/90 95 98.2 06/22/17 08:20 136/75 06/22/17 08:00 97.9 80 18 107/65 97 97.9 06/22/17 04:00 98.4 76 18 136/75 94 Room Air 98.4 06/22/17 00:00 99.5 95 20 154/87 95 Room Air 99.5 Intake and Output 06/21/17 06/22/17 19:00 07:00 Intake Total 360 ml 459.667 ml Output Total 850 ml 275 ml Balance -490 ml 184.667 ml Intake Oral 360 ml 100 ml IV Total 359.667 ml Output Urine Total 850 ml 275 ml # Bowel Movements 2 1 Objective General Appearance: WD/WN HEENT: normocephalic, atraumatic Respiratory/Chest: chest wall non-tender, lungs clear Breasts: no masses Cardiovascular: normal peripheral pulses, regular rhythm Abdomen: normal bowel sounds, soft, non tender Genitourinary: normal external genitalia Extremities: no cyanosis, aka Skin: extensive keratic lesions on leg Current Medications Medications (Trade) Dose Ordered Sig/Caden Route PRN Reason Start Time Stop Time Status Last Admin Dose Admin Ceftriaxone Sodium 2 gm/ Dextrose 110 ml @ 220 mls/hr Q24H IVPB 06/05/17 21:00 07/02/17 20:59 06/21/17 21:20 Clonidine HCl (Catapres Tab) 0.1 mg EVERY 6 HOURS PRN ORAL SBP >160mmHg 05/31/17 17:00 06/30/17 16:59 06/19/17 20:32 Clotrimazole (Lotrimin) 1 applic EVERY 12 HOURS TOPIC 06/14/17 15:30 07/14/17 15:29 06/22/17 08:22 Dextrose (Dextrose 50%) 25 ml STAT PRN IV Hypoglycemia 06/20/17 12:15 07/20/17 12:14 Dextrose (Dextrose 50%) 50 ml STAT PRN IV Hypoglycemia 06/20/17 12:00 07/20/17 11:59 Heparin Sodium (Porcine) (Heparin 5000 units/ml) 5,000 units EVERY 12 HOURS SUBQ 06/20/17 10:30 07/20/17 10:29 06/22/17 08:22 Insulin Aspart (NovoLOG) BEFORE MEALS AND HS SUBQ 06/20/17 12:45 07/20/17 12:44 06/22/17 11:30 Insulin Aspart (NovoLOG) 4 units NOVOTIAC SUBQ 06/12/17 11:50 07/09/17 11:49 06/22/17 11:31 Insulin Detemir (Levemir) 12 units Q24H SUBQ 06/07/17 07:30 07/04/17 07:29 06/22/17 08:21 Lisinopril (Prinivil) 40 mg DAILY ORAL 06/12/17 09:00 07/04/17 08:59 06/22/17 08:20 Metronidazole (Flagyl) 500 mg Q6HR ORAL 06/07/17 18:00 07/02/17 19:00 06/22/17 17:15 Vancomycin HCl (Vanco rx to dose) 1 ea DAILYPRN PRN MISC RX TO DOSE PROTOCOL 05/28/17 17:15 07/02/17 17:14 Vancomycin HCl/ Dextrose 250 ml @ 166.667 mls/hr Q18H IVPB 06/07/17 18:00 07/02/17 17:59 06/22/17 17:29 Kyra Massey MD Jun 22, 2017 20:08
[2017-06-22] MEDS: cefTRIAXone 2 GM in D5W 110 ML IVPB SCH (21:23)
[2017-06-23] MEDS: metroNIDAZOLE 500mg tab ORAL SCH ×4 (00:45→17:00)
[2017-06-23] MEDS: NovoLOG Insulin Flexpen SUBQ SCH ×7 (06:27→21:41)
[2017-06-23 08:00] VITALS: BP 100/61
[2017-06-23] MEDS: Levemir Flexpen SUBQ SCH (08:06)
[2017-06-23] MEDS: Lisinopril 20mg tab ORAL SCH (08:07)
[2017-06-23] MEDS: Heparin 5000 units/ml inj SUBQ SCH ×2 (08:07→21:42)
[2017-06-23 12:00] VITALS: BP 130/79
[2017-06-23] MEDS: Vancomycin 1250mg/D5W 250ml IVPB SCH (12:13)
[2017-06-23 16:00] VITALS: BP 145/82
--- NOTE | 2017-06-23 18:29 | Infectious Diseases Prog Note ---
Assessment/Plan Assessment/Plan The patient is a 66-year-old male with Right foot cellulitis. right big toe. osteo -MRI R foot: Findings suspicious for osteomyelitis of the distal aspect of the first distal phalanx -wound cx E.fecalis ([place] S), CoNS (likely represents colonizers) Fever, SP Normal white blood cells Influenza screening tests : Neg Diabetes. Hyperlipidemia. Hypertension. Left BKA. History of alcohol abuse and smoking until recently. 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 PLAN: On IV vancomycin and Ceftriaxone and Flagyl ( abx d# 34/42 ) for R 1st toe OM and foot cellulitis; ok to discharge on PO Bactrim DS 2 tab bid and PO Augmentin 875/125mg PO BId to complete course (Rx in chart) -05/24 SP Cefepime #4 Monitor CBC. Monitor BMP.. Subjective Allergies: Coded Allergies: No Known Allergies (Unverified , 11/16/14) Subjective afebrile Objective Vital Signs Last 24 Hour Vital Signs Date Time Temp Pulse Resp B/P (MAP) Pulse Ox O2 Delivery O2 Flow Rate FiO2 06/23/17 16:00 97.9 72 19 145/82 97 97.9 06/23/17 12:00 97.7 72 18 130/79 98 97.7 06/23/17 08:07 140/77 06/23/17 08:00 97.5 79 15 100/61 95 97.5 06/22/17 23:56 98.1 76 18 140/77 96 98.1 06/22/17 20:00 97.7 78 18 158/94 98 97.7 Height (Feet): 5 Height (Inches): 7.00 Weight (Pounds): 180 HEENT: anicteric Respiratory/Chest: normal breath sounds Cardiovascular: regular rhythm Abdomen: no organomegaly Current Medications Medications (Trade) Dose Ordered Sig/Caden Route PRN Reason Start Time Stop Time Status Last Admin Dose Admin Ceftriaxone Sodium 2 gm/ Dextrose 110 ml @ 220 mls/hr Q24H IVPB 06/05/17 21:00 07/02/17 20:59 06/22/17 21:23 Clonidine HCl (Catapres Tab) 0.1 mg EVERY 6 HOURS PRN ORAL SBP >160mmHg 05/31/17 17:00 06/30/17 16:59 06/19/17 20:32 Clotrimazole (Lotrimin) 1 applic EVERY 12 HOURS TOPIC 06/14/17 15:30 07/14/17 15:29 06/23/17 08:12 Dextrose (Dextrose 50%) 25 ml STAT PRN IV Hypoglycemia 06/20/17 12:15 07/20/17 12:14 Dextrose (Dextrose 50%) 50 ml STAT PRN IV Hypoglycemia 06/20/17 12:00 07/20/17 11:59 Heparin Sodium (Porcine) (Heparin 5000 units/ml) 5,000 units EVERY 12 HOURS SUBQ 06/20/17 10:30 07/20/17 10:29 06/23/17 08:07 Insulin Aspart (NovoLOG) BEFORE MEALS AND HS SUBQ 06/20/17 12:45 07/20/17 12:44 06/23/17 16:59 Insulin Aspart (NovoLOG) 4 units NOVOTIAC SUBQ 06/12/17 11:50 07/09/17 11:49 06/23/17 16:57 Insulin Detemir (Levemir) 12 units Q24H SUBQ 06/07/17 07:30 07/04/17 07:29 06/23/17 08:06 Lisinopril (Prinivil) 40 mg DAILY ORAL 06/12/17 09:00 07/04/17 08:59 06/23/17 08:07 Metronidazole (Flagyl) 500 mg Q6HR ORAL 06/07/17 18:00 07/02/17 19:00 06/23/17 17:00 Vancomycin HCl (Vanco rx to dose) 1 ea DAILYPRN PRN MISC RX TO DOSE PROTOCOL 05/28/17 17:15 07/02/17 17:14 Vancomycin HCl/ Dextrose 250 ml @ 166.667 mls/hr Q18H IVPB 06/07/17 18:00 07/02/17 17:59 06/23/17 12:13 Yuriy Kelsey MD Jun 23, 2017 18:29
--- NOTE | 2017-06-23 19:23 | Pulmonology Progress Note ---
Assessment/Plan Problems: (1) Osteomyelitis of ankle or foot, acute (2) Cellulitis of right lower extremity (3) Ulcer of heel and midfoot (4) ETOH abuse (5) HTN (hypertension) (6) Diabetes (7) Anemia (8) S/P BKA (below knee amputation) Assessment/Plan continue abx, care home , flagyl vancomycin skin getting much better pt/ot eating better, leg wounds looks better f/u ID recommendations dc planning to a [place] [facility] \ Subjective ROS Limited/Unobtainable: No Constitutional: Reports: no symptoms Respiratory: Reports: no symptoms Allergies: Coded Allergies: No Known Allergies (Unverified , 11/16/14) Objective Last 24 Hour Vital Signs Date Time Temp Pulse Resp B/P (MAP) Pulse Ox O2 Delivery O2 Flow Rate FiO2 06/23/17 16:00 97.9 72 19 145/82 97 97.9 06/23/17 12:00 97.7 72 18 130/79 98 97.7 06/23/17 08:07 140/77 06/23/17 08:00 97.5 79 15 100/61 95 97.5 06/22/17 23:56 98.1 76 18 140/77 96 98.1 06/22/17 20:00 97.7 78 18 158/94 98 97.7 Intake and Output 06/22/17 06/23/17 19:00 07:00 Intake Total 730.000 ml 630 ml Output Total 680 ml 675 ml Balance 50.000 ml -45 ml Intake Oral 480 ml 520 ml IV Total 250.000 ml 110 ml Output Urine Total 680 ml 675 ml # Bowel Movements 1 Objective General Appearance: WD/WN HEENT: normocephalic, atraumatic Respiratory/Chest: chest wall non-tender, lungs clear Breasts: no masses Cardiovascular: normal peripheral pulses, regular rhythm Abdomen: normal bowel sounds, soft, non tender Genitourinary: normal external genitalia Extremities: no cyanosis, aka Skin: extensive keratic lesions on leg Current Medications Medications (Trade) Dose Ordered Sig/Caden Route PRN Reason Start Time Stop Time Status Last Admin Dose Admin Ceftriaxone Sodium 2 gm/ Dextrose 110 ml @ 220 mls/hr Q24H IVPB 06/05/17 21:00 07/02/17 20:59 06/22/17 21:23 Clonidine HCl (Catapres Tab) 0.1 mg EVERY 6 HOURS PRN ORAL SBP >160mmHg 05/31/17 17:00 06/30/17 16:59 06/19/17 20:32 Clotrimazole (Lotrimin) 1 applic EVERY 12 HOURS TOPIC 06/14/17 15:30 07/14/17 15:29 06/23/17 08:12 Dextrose (Dextrose 50%) 25 ml STAT PRN IV Hypoglycemia 06/20/17 12:15 07/20/17 12:14 Dextrose (Dextrose 50%) 50 ml STAT PRN IV Hypoglycemia 06/20/17 12:00 07/20/17 11:59 Heparin Sodium (Porcine) (Heparin 5000 units/ml) 5,000 units EVERY 12 HOURS SUBQ 06/20/17 10:30 07/20/17 10:29 06/23/17 08:07 Insulin Aspart (NovoLOG) BEFORE MEALS AND HS SUBQ 06/20/17 12:45 07/20/17 12:44 06/23/17 16:59 Insulin Aspart (NovoLOG) 4 units NOVOTIAC SUBQ 06/12/17 11:50 07/09/17 11:49 06/23/17 16:57 Insulin Detemir (Levemir) 12 units Q24H SUBQ 06/07/17 07:30 07/04/17 07:29 06/23/17 08:06 Lisinopril (Prinivil) 40 mg DAILY ORAL 06/12/17 09:00 07/04/17 08:59 06/23/17 08:07 Metronidazole (Flagyl) 500 mg Q6HR ORAL 06/07/17 18:00 07/02/17 19:00 06/23/17 17:00 Vancomycin HCl (Vanco rx to dose) 1 ea DAILYPRN PRN MISC RX TO DOSE PROTOCOL 05/28/17 17:15 07/02/17 17:14 Vancomycin HCl/ Dextrose 250 ml @ 166.667 mls/hr Q18H IVPB 06/07/17 18:00 07/02/17 17:59 06/23/17 12:13 Kyra Massey MD Jun 23, 2017 19:23
[2017-06-23 20:00] VITALS: BP 140/82
[2017-06-23] MEDS: cefTRIAXone 2 GM in D5W 110 ML IVPB SCH (21:40)
[2017-06-24] VITALS: BP 131/74
[2017-06-24] MEDS: metroNIDAZOLE 500mg tab ORAL SCH ×4 (00:50→17:31)
[2017-06-24] MEDS: Vancomycin 1250mg/D5W 250ml IVPB SCH (06:41)
[2017-06-24] MEDS: Levemir Flexpen SUBQ SCH (06:43)
[2017-06-24] MEDS: NovoLOG Insulin Flexpen SUBQ SCH ×7 (06:43→20:42)
[2017-06-24 08:06] VITALS: BP 128/78
[2017-06-24] MEDS: Lisinopril 20mg tab ORAL SCH (08:11)
[2017-06-24] MEDS: Heparin 5000 units/ml inj SUBQ SCH ×2 (08:13→20:43)
[2017-06-24 11:48] VITALS: BP 130/72
[2017-06-24] MEDS ORDERED: Tubing IV Secondary IV ONE (12:25)
[2017-06-24 15:41] VITALS: BP 152/97
--- NOTE | 2017-06-24 18:45 | Pulmonology Progress Note ---
Assessment/Plan Problems: (1) Osteomyelitis of ankle or foot, acute (2) Cellulitis of right lower extremity (3) Ulcer of heel and midfoot (4) ETOH abuse (5) HTN (hypertension) (6) Diabetes (7) Anemia (8) S/P BKA (below knee amputation) Assessment/Plan continue abx, usp , flagyl vancomycin skin getting much better pt/ot eating better, leg wounds looks better f/u ID recommendations dc planning to a [facility] \ Subjective ROS Limited/Unobtainable: No Allergies: Coded Allergies: No Known Allergies (Unverified , 11/16/14) Objective Last 24 Hour Vital Signs Date Time Temp Pulse Resp B/P (MAP) Pulse Ox O2 Delivery O2 Flow Rate FiO2 06/24/17 15:41 98.1 87 20 152/97 97 98.1 06/24/17 11:48 98.4 75 20 130/72 95 98.4 06/24/17 08:11 128/78 06/24/17 08:06 99.5 77 18 128/78 94 99.5 06/24/17 00:00 99.5 79 18 131/74 94 99.5 06/23/17 20:00 98.4 69 18 140/82 94 98.4 Intake and Output 06/23/17 06/24/17 19:00 07:00 Intake Total 870.000 ml 475 ml Output Total 600 ml 975 ml Balance 270.000 ml -500 ml Intake Oral 620 ml 475 ml IV Total 250.000 ml Output Urine Total 600 ml 975 ml # Voids 4 # Bowel Movements 2 1 Objective General Appearance: WD/WN HEENT: normocephalic, atraumatic Respiratory/Chest: chest wall non-tender, lungs clear Breasts: no masses Cardiovascular: normal peripheral pulses, regular rhythm Abdomen: normal bowel sounds, soft, non tender Genitourinary: normal external genitalia Extremities: no cyanosis, aka Skin: extensive keratic lesions on leg Current Medications Medications (Trade) Dose Ordered Sig/Caden Route PRN Reason Start Time Stop Time Status Last Admin Dose Admin Ceftriaxone Sodium 2 gm/ Dextrose 110 ml @ 220 mls/hr Q24H IVPB 06/05/17 21:00 07/02/17 20:59 06/23/17 21:40 Clonidine HCl (Catapres Tab) 0.1 mg EVERY 6 HOURS PRN ORAL SBP >160mmHg 05/31/17 17:00 06/30/17 16:59 06/19/17 20:32 Clotrimazole (Lotrimin) 1 applic EVERY 12 HOURS TOPIC 06/14/17 15:30 07/14/17 15:29 06/24/17 09:00 Dextrose (Dextrose 50%) 25 ml STAT PRN IV Hypoglycemia 06/20/17 12:15 07/20/17 12:14 Dextrose (Dextrose 50%) 50 ml STAT PRN IV Hypoglycemia 06/20/17 12:00 07/20/17 11:59 Heparin Sodium (Porcine) (Heparin 5000 units/ml) 5,000 units EVERY 12 HOURS SUBQ 06/20/17 10:30 07/20/17 10:29 06/24/17 08:13 Insulin Aspart (NovoLOG) BEFORE MEALS AND HS SUBQ 06/20/17 12:45 07/20/17 12:44 06/24/17 11:35 Insulin Aspart (NovoLOG) 4 units NOVOTIAC SUBQ 06/12/17 11:50 07/09/17 11:49 06/24/17 17:34 Insulin Detemir (Levemir) 12 units Q24H SUBQ 06/07/17 07:30 07/04/17 07:29 06/24/17 06:43 Lisinopril (Prinivil) 40 mg DAILY ORAL 06/12/17 09:00 07/04/17 08:59 06/24/17 08:11 Metronidazole (Flagyl) 500 mg Q6HR ORAL 06/07/17 18:00 07/02/17 19:00 06/24/17 17:31 Vancomycin HCl (Vanco rx to dose) 1 ea DAILYPRN PRN MISC RX TO DOSE PROTOCOL 05/28/17 17:15 07/02/17 17:14 Vancomycin HCl/ Dextrose 250 ml @ 166.667 mls/hr Q18H IVPB 06/07/17 18:00 07/02/17 17:59 06/24/17 06:41 Kyra Massey MD Jun 24, 2017 18:45
[2017-06-24 19:57] VITALS: BP 147/98
--- NOTE | 2017-06-24 19:59 | Infectious Diseases Prog Note ---
Assessment/Plan Assessment/Plan The patient is a 66-year-old male with Right foot cellulitis. right big toe. osteo -MRI R foot: Findings suspicious for osteomyelitis of the distal aspect of the first distal phalanx -wound cx E.fecalis ([place] S), CoNS (likely represents colonizers) Fever, SP Normal white blood cells Influenza screening tests : Neg Diabetes. Hyperlipidemia. Hypertension. Left BKA. History of alcohol abuse and smoking until recently. 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 PLAN: On IV vancomycin and Ceftriaxone and Flagyl ( abx d# 35/42 ) for R 1st toe OM and foot cellulitis; ok to discharge on PO Bactrim DS 2 tab bid and PO Augmentin 875/125mg PO BId to complete course (Rx in chart) -05/24 SP Cefepime #4 Monitor CBC. Monitor BMP.. Subjective Allergies: Coded Allergies: No Known Allergies (Unverified , 11/16/14) Subjective no new complain Objective Vital Signs Last 24 Hour Vital Signs Date Time Temp Pulse Resp B/P (MAP) Pulse Ox O2 Delivery O2 Flow Rate FiO2 06/24/17 19:57 98.2 109 18 147/98 95 98.2 06/24/17 15:41 98.1 87 20 152/97 97 98.1 06/24/17 11:48 98.4 75 20 130/72 95 98.4 06/24/17 08:11 128/78 06/24/17 08:06 99.5 77 18 128/78 94 99.5 06/24/17 00:00 99.5 79 18 131/74 94 99.5 06/23/17 20:00 98.4 69 18 140/82 94 98.4 Height (Feet): 5 Height (Inches): 7.00 Weight (Pounds): 180 HEENT: anicteric Respiratory/Chest: no respiratory distress Cardiovascular: regular rhythm Abdomen: no organomegaly Current Medications Medications (Trade) Dose Ordered Sig/Caden Route PRN Reason Start Time Stop Time Status Last Admin Dose Admin Ceftriaxone Sodium 2 gm/ Dextrose 110 ml @ 220 mls/hr Q24H IVPB 06/05/17 21:00 07/02/17 20:59 06/23/17 21:40 Clonidine HCl (Catapres Tab) 0.1 mg EVERY 6 HOURS PRN ORAL SBP >160mmHg 05/31/17 17:00 06/30/17 16:59 06/19/17 20:32 Clotrimazole (Lotrimin) 1 applic EVERY 12 HOURS TOPIC 06/14/17 15:30 07/14/17 15:29 06/24/17 09:00 Dextrose (Dextrose 50%) 25 ml STAT PRN IV Hypoglycemia 06/20/17 12:15 07/20/17 12:14 Dextrose (Dextrose 50%) 50 ml STAT PRN IV Hypoglycemia 06/20/17 12:00 07/20/17 11:59 Heparin Sodium (Porcine) (Heparin 5000 units/ml) 5,000 units EVERY 12 HOURS SUBQ 06/20/17 10:30 07/20/17 10:29 06/24/17 08:13 Insulin Aspart (NovoLOG) BEFORE MEALS AND HS SUBQ 06/20/17 12:45 07/20/17 12:44 06/24/17 11:35 Insulin Aspart (NovoLOG) 4 units NOVOTIAC SUBQ 06/12/17 11:50 07/09/17 11:49 06/24/17 17:34 Insulin Detemir (Levemir) 12 units Q24H SUBQ 06/07/17 07:30 07/04/17 07:29 06/24/17 06:43 Lisinopril (Prinivil) 40 mg DAILY ORAL 06/12/17 09:00 07/04/17 08:59 06/24/17 08:11 Metronidazole (Flagyl) 500 mg Q6HR ORAL 06/07/17 18:00 07/02/17 19:00 06/24/17 17:31 Vancomycin HCl (Vanco rx to dose) 1 ea DAILYPRN PRN MISC RX TO DOSE PROTOCOL 05/28/17 17:15 07/02/17 17:14 Vancomycin HCl/ Dextrose 250 ml @ 166.667 mls/hr Q18H IVPB 06/07/17 18:00 07/02/17 17:59 06/24/17 06:41 Yuriy Kelsey MD Jun 24, 2017 19:59
[2017-06-24] MEDS: cefTRIAXone 2 GM in D5W 110 ML IVPB SCH (20:41)
[2017-06-24 23:50] VITALS: BP 136/80
[2017-06-25] MEDS: metroNIDAZOLE 500mg tab ORAL SCH ×4 (00:17→17:51)
[2017-06-25] MEDS: Vancomycin 1250mg/D5W 250ml IVPB SCH ×3 (00:56→18:00)
[2017-06-25 03:57] VITALS: BP 147/88
[2017-06-25] MEDS: NovoLOG Insulin Flexpen SUBQ SCH ×8 (05:38→20:59)
[2017-06-25] MEDS: Levemir Flexpen SUBQ SCH (07:30)
[2017-06-25 08:19] VITALS: BP 98/63
[2017-06-25] MEDS: Lisinopril 20mg tab ORAL SCH (08:56)
[2017-06-25] MEDS: Heparin 5000 units/ml inj SUBQ SCH ×2 (08:56→20:52)
[2017-06-25 11:49] VITALS: BP 106/65
--- NOTE | 2017-06-25 12:21 | Infectious Diseases Prog Note ---
Assessment/Plan Assessment/Plan The patient is a 66-year-old male with Right foot cellulitis. right big toe. osteo -MRI R foot: Findings suspicious for osteomyelitis of the distal aspect of the first distal phalanx -wound cx E.fecalis ([place] S), CoNS (likely represents colonizers) Fever, SP Normal white blood cells Influenza screening tests : Neg Diabetes. Hyperlipidemia. Hypertension. Left BKA. History of alcohol abuse and smoking until recently. 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 PLAN: On IV vancomycin and Ceftriaxone and Flagyl ( abx d# 36/42 ) upon DC will stop AB Rx -05/24 SP Cefepime #4 Monitor CBC. Monitor BMP.. Subjective Allergies: Coded Allergies: No Known Allergies (Unverified , 11/16/14) Subjective no new complain Objective Vital Signs Last 24 Hour Vital Signs Date Time Temp Pulse Resp B/P (MAP) Pulse Ox O2 Delivery O2 Flow Rate FiO2 06/25/17 11:49 97.8 85 18 106/65 98 97.8 06/25/17 08:56 98/63 06/25/17 08:19 98.2 89 18 98/63 97 98.2 06/25/17 03:57 99.0 106 18 147/88 97 Room Air 99.0 06/25/17 00:00 96 Room Air 06/24/17 23:50 100.0 103 18 136/80 96 100.0 06/24/17 20:00 95 Room Air 06/24/17 19:57 98.2 109 18 147/98 95 98.2 06/24/17 15:41 98.1 87 20 152/97 97 98.1 Height (Feet): 5 Height (Inches): 7.00 Weight (Pounds): 180 HEENT: anicteric Respiratory/Chest: normal breath sounds Cardiovascular: regular rhythm Abdomen: normal bowel sounds Laboratory Tests Test 06/24/17 23:10 Vancomycin Level Trough 18.5 ug/mL (5.0-12.0) H Current Medications Medications (Trade) Dose Ordered Sig/Caden Route PRN Reason Start Time Stop Time Status Last Admin Dose Admin Ceftriaxone Sodium 2 gm/ Dextrose 110 ml @ 220 mls/hr Q24H IVPB 06/05/17 21:00 07/02/17 20:59 06/24/17 20:41 Clonidine HCl (Catapres Tab) 0.1 mg EVERY 6 HOURS PRN ORAL SBP >160mmHg 05/31/17 17:00 06/30/17 16:59 06/19/17 20:32 Clotrimazole (Lotrimin) 1 applic EVERY 12 HOURS TOPIC 06/14/17 15:30 07/14/17 15:29 06/25/17 08:56 Dextrose (Dextrose 50%) 25 ml STAT PRN IV Hypoglycemia 06/20/17 12:15 07/20/17 12:14 Dextrose (Dextrose 50%) 50 ml STAT PRN IV Hypoglycemia 06/20/17 12:00 07/20/17 11:59 Heparin Sodium (Porcine) (Heparin 5000 units/ml) 5,000 units EVERY 12 HOURS SUBQ 06/20/17 10:30 07/20/17 10:29 06/24/17 20:43 Insulin Aspart (NovoLOG) BEFORE MEALS AND HS SUBQ 06/20/17 12:45 07/20/17 12:44 06/25/17 12:09 Insulin Aspart (NovoLOG) 4 units NOVOTIAC SUBQ 06/12/17 11:50 07/09/17 11:49 06/25/17 12:07 Insulin Detemir (Levemir) 12 units Q24H SUBQ 06/07/17 07:30 07/04/17 07:29 06/24/17 06:43 Lisinopril (Prinivil) 40 mg DAILY ORAL 06/12/17 09:00 07/04/17 08:59 06/24/17 08:11 Metronidazole (Flagyl) 500 mg Q6HR ORAL 06/07/17 18:00 07/02/17 19:00 06/25/17 12:07 Vancomycin HCl (Vanco rx to dose) 1 ea DAILYPRN PRN MISC RX TO DOSE PROTOCOL 05/28/17 17:15 07/02/17 17:14 Vancomycin HCl/ Dextrose 250 ml @ 166.667 mls/hr Q18H IVPB 06/07/17 18:00 07/02/17 17:59 06/25/17 00:56 Yuriy Kelsey MD Jun 25, 2017 12:21
[2017-06-25 15:25] VITALS: BP 108/65
--- NOTE | 2017-06-25 19:39 | Pulmonology Progress Note ---
Assessment/Plan Problems: (1) Osteomyelitis of ankle or foot, acute (2) Cellulitis of right lower extremity (3) Ulcer of heel and midfoot (4) ETOH abuse (5) HTN (hypertension) (6) Diabetes (7) Anemia (8) S/P BKA (below knee amputation) Assessment/Plan continue abx, assisted , flagyl vancomycin skin getting much better pt/ot eating better, leg wounds looks better f/u ID recommendations dc planning to a residential \ Subjective ROS Limited/Unobtainable: No Constitutional: Reports: no symptoms HEENT: Repors: no symptoms Respiratory: Reports: no symptoms Allergies: Coded Allergies: No Known Allergies (Unverified , 11/16/14) Objective Last 24 Hour Vital Signs Date Time Temp Pulse Resp B/P (MAP) Pulse Ox O2 Delivery O2 Flow Rate FiO2 06/25/17 15:25 97.7 73 18 108/65 98 97.7 06/25/17 11:49 97.8 85 18 106/65 98 97.8 06/25/17 08:56 98/63 06/25/17 08:19 98.2 89 18 98/63 97 98.2 06/25/17 03:57 99.0 106 18 147/88 97 Room Air 99.0 06/25/17 00:00 96 Room Air 06/24/17 23:50 100.0 103 18 136/80 96 100.0 06/24/17 20:00 95 Room Air 06/24/17 19:57 98.2 109 18 147/98 95 98.2 Intake and Output 06/24/17 06/25/17 19:00 07:00 Intake Total 720 ml 660.000 ml Output Total 400 ml Balance 320 ml 660.000 ml Intake Oral 720 ml 300 ml IV Total 360.000 ml Output Urine Total 400 ml # Voids 3 # Bowel Movements 2 Objective General Appearance: WD/WN HEENT: normocephalic, atraumatic Respiratory/Chest: chest wall non-tender, lungs clear Breasts: no masses Cardiovascular: normal peripheral pulses, regular rhythm Abdomen: normal bowel sounds, soft, non tender Genitourinary: normal external genitalia Extremities: no cyanosis, aka Skin: extensive keratic lesions on leg Laboratory Tests 06/24/17 23:10: Vancomycin Level Trough 18.5H Current Medications Medications (Trade) Dose Ordered Sig/Caden Route PRN Reason Start Time Stop Time Status Last Admin Dose Admin Ceftriaxone Sodium 2 gm/ Dextrose 110 ml @ 220 mls/hr Q24H IVPB 06/05/17 21:00 07/02/17 20:59 06/24/17 20:41 Clonidine HCl (Catapres Tab) 0.1 mg EVERY 6 HOURS PRN ORAL SBP >160mmHg 05/31/17 17:00 06/30/17 16:59 06/19/17 20:32 Clotrimazole (Lotrimin) 1 applic EVERY 12 HOURS TOPIC 06/14/17 15:30 07/14/17 15:29 06/25/17 08:56 Dextrose (Dextrose 50%) 25 ml STAT PRN IV Hypoglycemia 06/20/17 12:15 07/20/17 12:14 Dextrose (Dextrose 50%) 50 ml STAT PRN IV Hypoglycemia 06/20/17 12:00 07/20/17 11:59 Heparin Sodium (Porcine) (Heparin 5000 units/ml) 5,000 units EVERY 12 HOURS SUBQ 06/20/17 10:30 07/20/17 10:29 06/24/17 20:43 Insulin Aspart (NovoLOG) BEFORE MEALS AND HS SUBQ 06/20/17 12:45 07/20/17 12:44 06/25/17 17:52 Insulin Aspart (NovoLOG) 4 units NOVOTIAC SUBQ 06/12/17 11:50 07/09/17 11:49 06/25/17 17:53 Insulin Detemir (Levemir) 12 units Q24H SUBQ 06/07/17 07:30 07/04/17 07:29 06/24/17 06:43 Lisinopril (Prinivil) 40 mg DAILY ORAL 06/12/17 09:00 07/04/17 08:59 06/24/17 08:11 Metronidazole (Flagyl) 500 mg Q6HR ORAL 06/07/17 18:00 07/02/17 19:00 06/25/17 17:51 Vancomycin HCl (Vanco rx to dose) 1 ea DAILYPRN PRN MISC RX TO DOSE PROTOCOL 05/28/17 17:15 07/02/17 17:14 Vancomycin HCl/ Dextrose 250 ml @ 166.667 mls/hr Q18H IVPB 06/07/17 18:00 07/02/17 17:59 06/25/17 18:00 Kyra Massey MD Jun 25, 2017 19:39
[2017-06-25 19:58] VITALS: BP 112/69
[2017-06-25] MEDS: cefTRIAXone 2 GM in D5W 110 ML IVPB SCH (20:50)
[2017-06-26] VITALS: BP 111/69
[2017-06-26] MEDS: metroNIDAZOLE 500mg tab ORAL SCH ×4 (00:22→17:05)
[2017-06-26 04:00] VITALS: BP 116/70
[2017-06-26] MEDS: NovoLOG Insulin Flexpen SUBQ SCH ×7 (05:54→21:39)
[2017-06-26 07:59] VITALS: BP 94/61
[2017-06-26] MEDS: Levemir Flexpen SUBQ SCH (08:22)
[2017-06-26] MEDS: Lisinopril 20mg tab ORAL SCH (08:22)
[2017-06-26] MEDS: Heparin 5000 units/ml inj SUBQ SCH ×3 (08:24→21:40)
[2017-06-26 11:53] VITALS: BP 107/68
[2017-06-26] MEDS: Vancomycin 1250mg/D5W 250ml IVPB SCH (13:41)
--- NOTE | 2017-06-26 15:19 | Pulmonology Progress Note ---
Assessment/Plan Problems: (1) Osteomyelitis of ankle or foot, acute (2) Cellulitis of right lower extremity (3) Ulcer of heel and midfoot (4) ETOH abuse (5) HTN (hypertension) (6) Diabetes (7) Anemia (8) S/P BKA (below knee amputation) Assessment/Plan continue abx, retirement , flagyl vancomycin skin getting much better pt/ot eating better, leg wounds looks better f/u ID recommendations dc planning to a intermediate \ Subjective ROS Limited/Unobtainable: No Constitutional: Reports: no symptoms HEENT: Repors: no symptoms Allergies: Coded Allergies: No Known Allergies (Unverified , 11/16/14) Objective Last 24 Hour Vital Signs Date Time Temp Pulse Resp B/P (MAP) Pulse Ox O2 Delivery O2 Flow Rate FiO2 06/26/17 11:53 97.7 82 18 107/68 97 97.7 06/26/17 08:22 94/61 06/26/17 07:59 97.3 86 18 94/61 95 97.3 06/26/17 04:00 98.0 79 20 116/70 96 Room Air 98.0 06/26/17 00:00 98.1 78 20 111/69 97 Room Air 98.1 06/25/17 19:58 97.9 73 18 112/69 98 Room Air 97.9 06/25/17 15:25 97.7 73 18 108/65 98 97.7 Intake and Output 06/25/17 06/26/17 19:00 07:00 Intake Total 600 ml Output Total 1200 ml Balance -600 ml Intake Oral 600 ml Output Urine Total 1200 ml # Voids 3 # Bowel Movements 2 1 Objective General Appearance: WD/WN HEENT: normocephalic, atraumatic Respiratory/Chest: chest wall non-tender, lungs clear Breasts: no masses Cardiovascular: normal peripheral pulses, regular rhythm Abdomen: normal bowel sounds, soft, non tender Genitourinary: normal external genitalia Extremities: no cyanosis, aka Skin: extensive keratic lesions on leg Current Medications Medications (Trade) Dose Ordered Sig/Caden Route PRN Reason Start Time Stop Time Status Last Admin Dose Admin Ceftriaxone Sodium 2 gm/ Dextrose 110 ml @ 220 mls/hr Q24H IVPB 06/05/17 21:00 07/02/17 20:59 06/25/17 20:50 Clonidine HCl (Catapres Tab) 0.1 mg EVERY 6 HOURS PRN ORAL SBP >160mmHg 05/31/17 17:00 06/30/17 16:59 06/19/17 20:32 Clotrimazole (Lotrimin) 1 applic EVERY 12 HOURS TOPIC 06/14/17 15:30 07/14/17 15:29 06/26/17 08:24 Dextrose (Dextrose 50%) 25 ml STAT PRN IV Hypoglycemia 06/20/17 12:15 07/20/17 12:14 Dextrose (Dextrose 50%) 50 ml STAT PRN IV Hypoglycemia 06/20/17 12:00 07/20/17 11:59 Heparin Sodium (Porcine) (Heparin 5000 units/ml) 5,000 units EVERY 12 HOURS SUBQ 06/20/17 10:30 07/20/17 10:29 06/26/17 09:23 Insulin Aspart (NovoLOG) BEFORE MEALS AND HS SUBQ 06/20/17 12:45 07/20/17 12:44 06/26/17 11:52 Insulin Aspart (NovoLOG) 4 units NOVOTIAC SUBQ 06/12/17 11:50 07/09/17 11:49 06/26/17 11:52 Insulin Detemir (Levemir) 12 units Q24H SUBQ 06/07/17 07:30 07/04/17 07:29 06/26/17 08:22 Lisinopril (Prinivil) 40 mg DAILY ORAL 06/12/17 09:00 07/04/17 08:59 06/24/17 08:11 Metronidazole (Flagyl) 500 mg Q6HR ORAL 06/07/17 18:00 07/02/17 19:00 06/26/17 13:41 Vancomycin HCl (Vanco rx to dose) 1 ea DAILYPRN PRN MISC RX TO DOSE PROTOCOL 05/28/17 17:15 07/02/17 17:14 Vancomycin HCl/ Dextrose 250 ml @ 166.667 mls/hr Q18H IVPB 06/07/17 18:00 07/02/17 17:59 06/26/17 13:41 Kyra Massey MD Jun 26, 2017 15:19
[2017-06-26 15:48] VITALS: BP 115/71
[2017-06-26 20:00] VITALS: BP 128/74
[2017-06-26] MEDS: cefTRIAXone 2 GM in D5W 110 ML IVPB SCH (21:38)
[2017-06-27 00:22] VITALS: BP 130/77
[2017-06-27] MEDS: metroNIDAZOLE 500mg tab ORAL SCH ×5 (01:01→23:18)
[2017-06-27 04:17] VITALS: BP 129/79
[2017-06-27] MEDS: Vancomycin 1250mg/D5W 250ml IVPB SCH ×2 (05:36→23:18)
[2017-06-27] MEDS: NovoLOG Insulin Flexpen SUBQ SCH ×7 (06:07→20:39)
[2017-06-27 08:00] VITALS: BP 132/74
[2017-06-27] MEDS: Levemir Flexpen SUBQ SCH (08:19)
[2017-06-27] MEDS: Lisinopril 20mg tab ORAL SCH (09:43)
[2017-06-27] MEDS: Heparin 5000 units/ml inj SUBQ SCH ×2 (09:44→20:40)
[2017-06-27 12:00] VITALS: BP 142/75
--- NOTE | 2017-06-27 14:21 | Pulmonology Progress Note ---
Assessment/Plan Problems: (1) Osteomyelitis of ankle or foot, acute (2) Cellulitis of right lower extremity (3) Ulcer of heel and midfoot (4) ETOH abuse (5) HTN (hypertension) (6) Diabetes (7) Anemia (8) S/P BKA (below knee amputation) Assessment/Plan continue abx, intermediate , flagyl vancomycin skin getting much better pt/ot eating better, leg wounds looks better f/u ID recommendations dc planning to a snf \ Subjective ROS Limited/Unobtainable: No Allergies: Coded Allergies: No Known Allergies (Unverified , 11/16/14) Objective Last 24 Hour Vital Signs Date Time Temp Pulse Resp B/P (MAP) Pulse Ox O2 Delivery O2 Flow Rate FiO2 06/27/17 12:00 97.9 72 19 142/75 93 97.9 06/27/17 09:43 132/74 06/27/17 08:00 97.5 76 19 132/74 98 97.5 06/27/17 04:23 Room Air 06/27/17 04:17 97.9 75 17 129/79 98 97.9 06/27/17 00:22 97.4 71 17 130/77 95 97.4 06/27/17 00:00 Room Air 06/26/17 20:00 Room Air 06/26/17 20:00 97.7 75 18 128/74 95 97.7 06/26/17 15:48 98.2 76 18 115/71 98 98.2 Intake and Output 06/26/17 06/27/17 19:00 07:00 Intake Total 840 ml 470 ml Output Total 600 ml Balance 240 ml 470 ml Intake Oral 840 ml 360 ml IV Total 110 ml Output Urine Total 600 ml # Voids 4 Objective General Appearance: WD/WN HEENT: normocephalic, atraumatic Respiratory/Chest: chest wall non-tender, lungs clear Breasts: no masses Cardiovascular: normal peripheral pulses, regular rhythm Abdomen: normal bowel sounds, soft, non tender Genitourinary: normal external genitalia Extremities: no cyanosis, aka Skin: extensive keratic lesions on leg Current Medications Medications (Trade) Dose Ordered Sig/Caden Route PRN Reason Start Time Stop Time Status Last Admin Dose Admin Ceftriaxone Sodium 2 gm/ Dextrose 110 ml @ 220 mls/hr Q24H IVPB 06/05/17 21:00 07/02/17 20:59 06/26/17 21:38 Clonidine HCl (Catapres Tab) 0.1 mg EVERY 6 HOURS PRN ORAL SBP >160mmHg 05/31/17 17:00 06/30/17 16:59 06/19/17 20:32 Clotrimazole (Lotrimin) 1 applic EVERY 12 HOURS TOPIC 06/14/17 15:30 07/14/17 15:29 06/27/17 09:45 Dextrose (Dextrose 50%) 25 ml STAT PRN IV Hypoglycemia 06/20/17 12:15 07/20/17 12:14 Dextrose (Dextrose 50%) 50 ml STAT PRN IV Hypoglycemia 06/20/17 12:00 07/20/17 11:59 Heparin Sodium (Porcine) (Heparin 5000 units/ml) 5,000 units EVERY 12 HOURS SUBQ 06/20/17 10:30 07/20/17 10:29 06/27/17 09:44 Insulin Aspart (NovoLOG) BEFORE MEALS AND HS SUBQ 06/20/17 12:45 07/20/17 12:44 06/27/17 11:50 Insulin Aspart (NovoLOG) 4 units NOVOTIAC SUBQ 06/12/17 11:50 07/09/17 11:49 06/27/17 11:50 Insulin Detemir (Levemir) 12 units Q24H SUBQ 06/07/17 07:30 07/04/17 07:29 06/27/17 08:19 Lisinopril (Prinivil) 40 mg DAILY ORAL 06/12/17 09:00 07/04/17 08:59 06/27/17 09:43 Metronidazole (Flagyl) 500 mg Q6HR ORAL 06/07/17 18:00 07/02/17 19:00 06/27/17 11:55 Sodium Hypochlorite (Dakin's Quarter Strength) 1 applic DAILY TOPIC 06/28/17 09:00 07/28/17 08:59 Vancomycin HCl (Vanco rx to dose) 1 ea DAILYPRN PRN MISC RX TO DOSE PROTOCOL 05/28/17 17:15 07/02/17 17:14 Vancomycin HCl/ Dextrose 250 ml @ 166.667 mls/hr Q18H IVPB 06/07/17 18:00 07/02/17 17:59 06/27/17 05:36 Kyra Massey MD Jun 27, 2017 14:21
[2017-06-27] MEDS: Dakin's 0.125% Soln (Quarter Strength) 16oz TOPIC SCH (15:12)
[2017-06-27 16:00] VITALS: BP 138/74
[2017-06-27 20:00] VITALS: BP 156/89
[2017-06-27] MEDS: cefTRIAXone 2 GM in D5W 110 ML IVPB SCH (20:38)
--- NOTE | 2017-06-27 22:40 | Infectious Diseases Prog Note ---
Assessment/Plan Assessment/Plan The patient is a 66-year-old male with Right foot cellulitis. right big toe. osteo -MRI R foot: Findings suspicious for osteomyelitis of the distal aspect of the first distal phalanx -wound cx E.fecalis ([place] S), CoNS (likely represents colonizers) Fever, SP Normal white blood cells Influenza screening tests : Neg Diabetes. Hyperlipidemia. Hypertension. Left BKA. History of alcohol abuse and smoking until recently. 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 PLAN: On IV vancomycin and Ceftriaxone and Flagyl ( abx d# 38/42 ) upon DC will stop AB Rx -3 SP Cefepime #4 Monitor CBC. Monitor BMP.. Subjective Allergies: Coded Allergies: No Known Allergies (Unverified , 11/16/14) Subjective no new complain Objective Vital Signs Last 24 Hour Vital Signs Date Time Temp Pulse Resp B/P (MAP) Pulse Ox O2 Delivery O2 Flow Rate FiO2 06/27/17 21:17 Room Air 06/27/17 20:00 97.9 80 19 156/89 95 Room Air 97.9 06/27/17 16:00 98.0 70 18 138/74 95 98.0 06/27/17 12:00 97.9 72 19 142/75 93 97.9 06/27/17 09:43 132/74 06/27/17 08:00 97.5 76 19 132/74 98 97.5 06/27/17 04:23 Room Air 06/27/17 04:17 97.9 75 17 129/79 98 97.9 06/27/17 00:22 97.4 71 17 130/77 95 97.4 06/27/17 00:00 Room Air Height (Feet): 5 Height (Inches): 7.00 Weight (Pounds): 180 HEENT: anicteric Respiratory/Chest: no respiratory distress Cardiovascular: no gallop/murmur Abdomen: no organomegaly Current Medications Medications (Trade) Dose Ordered Sig/Caden Route PRN Reason Start Time Stop Time Status Last Admin Dose Admin Ceftriaxone Sodium 2 gm/ Dextrose 110 ml @ 220 mls/hr Q24H IVPB 06/05/17 21:00 07/02/17 20:59 06/27/17 20:38 Clonidine HCl (Catapres Tab) 0.1 mg EVERY 6 HOURS PRN ORAL SBP >160mmHg 3/19/18 17:00 06/30/17 16:59 06/19/17 20:32 Clotrimazole (Lotrimin) 1 applic EVERY 12 HOURS TOPIC 06/14/17 15:30 07/14/17 15:29 06/27/17 20:41 Dextrose (Dextrose 50%) 25 ml STAT PRN IV Hypoglycemia 06/20/17 12:15 07/20/17 12:14 Dextrose (Dextrose 50%) 50 ml STAT PRN IV Hypoglycemia 06/20/17 12:00 07/20/17 11:59 Heparin Sodium (Porcine) (Heparin 5000 units/ml) 5,000 units EVERY 12 HOURS SUBQ 06/20/17 10:30 07/20/17 10:29 06/27/17 20:40 Insulin Aspart (NovoLOG) BEFORE MEALS AND HS SUBQ 06/20/17 12:45 07/20/17 12:44 06/27/17 20:39 Insulin Aspart (NovoLOG) 4 units NOVOTIAC SUBQ 06/12/17 11:50 07/09/17 11:49 06/27/17 11:50 Insulin Detemir (Levemir) 12 units Q24H SUBQ 06/07/17 07:30 07/04/17 07:29 06/27/17 08:19 Lisinopril (Prinivil) 40 mg DAILY ORAL 06/12/17 09:00 07/04/17 08:59 06/27/17 09:43 Metronidazole (Flagyl) 500 mg Q6HR ORAL 06/07/17 18:00 07/02/17 19:00 06/27/17 18:17 Sodium Hypochlorite (Dakin's Quarter Strength) 1 applic DAILY TOPIC 06/28/17 09:00 07/28/17 08:59 06/27/17 15:12 Vancomycin HCl (Vanco rx to dose) 1 ea DAILYPRN PRN MISC RX TO DOSE PROTOCOL 05/28/17 17:15 07/02/17 17:14 Vancomycin HCl/ Dextrose 250 ml @ 166.667 mls/hr Q18H IVPB 06/07/17 18:00 07/02/17 17:59 06/27/17 05:36 Yuriy Kelsey MD Jun 27, 2017 22:40
[2017-06-28] VITALS: BP_SYST 120; BP_SYST 131; BP_DIAS 73; BP_DIAS 74
[2017-06-28 04:00] VITALS: BP 128/69
[2017-06-28] MEDS: NovoLOG Insulin Flexpen SUBQ SCH ×7 (05:58→20:26)
[2017-06-28] MEDS: metroNIDAZOLE 500mg tab ORAL SCH ×3 (05:58→16:58)
[2017-06-28 07:41] LABS: BASOPHILS % (AUTO) 0.9 % (0.0-2.0); HEMATOCRIT 37.7 % (42.0-52.0); HEMOGLOBIN 12.9 G/DL (14.2-18.0); LYMPHOCYTES % (AUTO) 28.7 % (20.0-45.0); MEAN CORPUSCULAR VOLUME 84 FL (80-99); NEUTROPHILS % (AUTO) 55.4 % (45.0-75.0); PLATELET COUNT 194 K/UL (150-450); RED BLOOD COUNT 4.48 M/UL (4.70-6.10); RED CELL DISTRIBUTION WIDTH 11.5 % (11.6-14.8); WHITE BLOOD COUNT 6.3 K/UL (4.8-10.8)
[2017-06-28 07:55] LABS: ALANINE AMINOTRANSFERASE 17 U/L (12-78); ALBUMIN 2.7 G/DL (3.4-5.0); ALBUMIN/GLOBULIN RATIO 0.7 (1.0-2.7); ALKALINE PHOSPHATASE 41 U/L (46-116); ANION GAP 7 mmol/L (5-15); ASPARTATE AMINO TRANSFERASE 19 U/L (15-37); BILIRUBIN,TOTAL 0.3 MG/DL (0.2-1.0); BLOOD UREA NITROGEN 17 mg/dL (7-18); CALCIUM 8.8 MG/DL (8.5-10.1); CARBON DIOXIDE 30 MMOL/L (21-32); CHLORIDE 102 MMOL/L (98-107); CREATININE 1.2 MG/DL (0.55-1.30); PHOSPHORUS 3.6 MG/DL (2.5-4.9); POTASSIUM 3.3 MMOL/L (3.5-5.1); SODIUM 138 MMOL/L (136-145)
[2017-06-28 08:01] VITALS: BP 107/60
[2017-06-28] MEDS: Heparin 5000 units/ml inj SUBQ SCH ×2 (08:08→20:25)
[2017-06-28] MEDS: Levemir Flexpen SUBQ SCH (08:10)
[2017-06-28] MEDS: Lisinopril 20mg tab ORAL SCH ×2 (08:10→08:12)
[2017-06-28] MEDS ORDERED: Tubing IV Secondary IV ONE (10:36)
[2017-06-28 12:02] VITALS: BP 128/74
--- NOTE | 2017-06-28 12:12 | Wound Care Consultation ---
Wound Assessment Wound Assessment : Wound Number: 1 Wound Present on Admission: Yes New Wound: Yes Status Change of Wound: No Wound Location Body Site Modif: right Wound Location Body Site: heel Wound Type: pressure ulcer Apple Test: Does not Apple Pressure Ulcer Stage: Deep Tissue Injury Wound Thickness: Full Thickness Wound Length: 0.5 Wound Width: 0.5 Wound Depth: utd Percent of Wound Purple/Maroon: 100 Wound Drainage Amount: None Wound Drainage Odor: None/Absent Tissue Surrounding Wound: Intact Wound General Appearance: Reddened - maroon Wound Comment #1 Right lower leg cellulitis and necrosis of the 1st toe. Good progress noted. 1st toe noted with dry scab. #2 Left and right ischial tuberosity with hyperpigmentation- intact #3 perineal extending to left and right buttocks chemical burn - jagruti care, keep clean and dry, apply Lotrimin cream Per protocol #4 Right heel DTI pressure ulcer. Good progress noted. Skin still intact. Large area noted with intact [place] normal skin color. Will cont to monitor. Reassessed this Pt. No Deterioration at this time. Noted with good progress. Recommendation -Local wound care per protocol for right heel DTI pressure injury -Jagruti care, keep clean and dry, apply Lotrimin cream Per protocol -Keep clean and dry -Turn and reposition -Offload both heels -Heel protector on both heels -Optimize nutrition -Low air loss mattress -Assess and f/u accordingly for any changes WES PALOMARES RN Jun 28, 2017 12:12
--- NOTE | 2017-06-28 15:22 | Pulmonology Progress Note ---
Assessment/Plan Problems: (1) Osteomyelitis of ankle or foot, acute (2) Cellulitis of right lower extremity (3) Ulcer of heel and midfoot (4) ETOH abuse (5) HTN (hypertension) (6) Diabetes (7) Anemia (8) S/P BKA (below knee amputation) Assessment/Plan labs reviewed skin getting much better pt/ot eating better, leg wounds looks better f/u ID recommendations dc planning to a senior care \ Subjective ROS Limited/Unobtainable: No Constitutional: Reports: no symptoms HEENT: Repors: no symptoms Respiratory: Reports: no symptoms Allergies: Coded Allergies: No Known Allergies (Unverified , 11/16/14) Objective Last 24 Hour Vital Signs Date Time Temp Pulse Resp B/P (MAP) Pulse Ox O2 Delivery O2 Flow Rate FiO2 06/28/17 12:02 97.4 88 18 128/74 94 Room Air 97.4 06/28/17 08:12 118/68 06/28/17 08:01 98.2 84 18 107/60 94 Room Air 98.2 06/28/17 04:00 97.9 71 20 128/69 94 Room Air 97.9 06/28/17 00:33 Room Air 06/28/17 00:00 98.6 75 18 131/74 95 Room Air 98.6 06/27/17 21:17 Room Air 06/27/17 20:00 97.9 80 19 156/89 95 Room Air 97.9 06/27/17 16:00 98.0 70 18 138/74 95 98.0 Intake and Output 06/27/17 06/28/17 19:00 07:00 Intake Total 1000 ml 360.000 ml Balance 1000 ml 360.000 ml Intake Oral 1000 ml IV Total 360.000 ml # Voids 6 3 Objective General Appearance: WD/WN HEENT: normocephalic, atraumatic Respiratory/Chest: chest wall non-tender, lungs clear Breasts: no masses Cardiovascular: normal peripheral pulses, regular rhythm Abdomen: normal bowel sounds, soft, non tender Genitourinary: normal external genitalia Extremities: no cyanosis, aka Skin: extensive keratic lesions on leg Laboratory Tests 06/28/17 06:35: White Blood Count 6.3, Red Blood Count 4.48L, Hemoglobin 12.9L, Hematocrit 37.7L , Mean Corpuscular Volume 84, Mean Corpuscular Hemoglobin 28.9, Mean Corpuscular Hemoglobin Concent 34.3, Red Cell Distribution Width 11.5L, Platelet Count 194, Mean Platelet Volume 10.1, Neutrophils (%) (Auto) 55.4, Lymphocytes (%) (Auto) 28.7, Monocytes (%) (Auto) 10.0, Eosinophils (%) (Auto) 5.0H, Basophils (%) (Auto) 0.9, Erythrocyte Sedimentation Rate 74H, Sodium Level 138, Potassium Level 3.3L, Chloride Level 102, Carbon Dioxide Level 30, Anion Gap 7, Blood Urea Nitrogen 17, Creatinine 1.2, Estimat Glomerular Filtration Rate > 60, Glucose Level 198H, Calcium Level 8.8, Phosphorus Level 3.6, Magnesium Level 1.8, Total Bilirubin 0.3, Aspartate Amino Transf (AST/SGOT ) 19, Alanine Aminotransferase (ALT/SGPT) 17, Alkaline Phosphatase 41L, Total Protein 6.8, Albumin 2.7L, Globulin 4.1, Albumin/Globulin Ratio 0.7L Current Medications Medications (Trade) Dose Ordered Sig/Caden Route PRN Reason Start Time Stop Time Status Last Admin Dose Admin Ceftriaxone Sodium 2 gm/ Dextrose 110 ml @ 220 mls/hr Q24H IVPB 06/05/17 21:00 07/02/17 20:59 06/27/17 20:38 Clonidine HCl (Catapres Tab) 0.1 mg EVERY 6 HOURS PRN ORAL SBP >160mmHg 05/31/17 17:00 06/30/17 16:59 06/19/17 20:32 Clotrimazole (Lotrimin) 1 applic EVERY 12 HOURS TOPIC 06/14/17 15:30 07/14/17 15:29 06/28/17 08:13 Dextrose (Dextrose 50%) 25 ml STAT PRN IV Hypoglycemia 06/20/17 12:15 07/20/17 12:14 Dextrose (Dextrose 50%) 50 ml STAT PRN IV Hypoglycemia 06/20/17 12:00 07/20/17 11:59 Heparin Sodium (Porcine) (Heparin 5000 units/ml) 5,000 units EVERY 12 HOURS SUBQ 06/20/17 10:30 07/20/17 10:29 06/28/17 08:08 Insulin Aspart (NovoLOG) BEFORE MEALS AND HS SUBQ 06/20/17 12:45 07/20/17 12:44 06/28/17 11:43 Insulin Aspart (NovoLOG) 4 units NOVOTIAC SUBQ 06/12/17 11:50 07/09/17 11:49 06/28/17 11:42 Insulin Detemir (Levemir) 12 units Q24H SUBQ 06/07/17 07:30 07/04/17 07:29 06/28/17 08:10 Lisinopril (Prinivil) 40 mg DAILY ORAL 06/12/17 09:00 07/04/17 08:59 06/28/17 08:12 Metronidazole (Flagyl) 500 mg Q6HR ORAL 06/07/17 18:00 07/02/17 19:00 06/28/17 11:47 Sodium Hypochlorite (Dakin's Quarter Strength) 1 applic DAILY TOPIC 06/28/17 09:00 07/28/17 08:59 06/27/17 15:12 Vancomycin HCl (Vanco rx to dose) 1 ea DAILYPRN PRN MISC RX TO DOSE PROTOCOL 05/28/17 17:15 07/02/17 17:14 Vancomycin HCl/ Dextrose 250 ml @ 166.667 mls/hr Q18H IVPB 06/07/17 18:00 07/02/17 17:59 06/27/17 23:18 Kyra Massey MD Jun 28, 2017 15:22
[2017-06-28 16:00] VITALS: BP 132/85
[2017-06-28] MEDS: Vancomycin 1250mg/D5W 250ml IVPB SCH (18:24)
[2017-06-28 20:00] VITALS: BP 145/89
--- NOTE | 2017-06-28 20:04 | Infectious Diseases Prog Note ---
Assessment/Plan Assessment/Plan The patient is a 66-year-old male with Right foot cellulitis. right big toe. osteo -MRI R foot: Findings suspicious for osteomyelitis of the distal aspect of the first distal phalanx -wound cx E.fecalis ([place] S), CoNS (likely represents colonizers) Fever, SP Normal white blood cells Influenza screening tests : Neg Diabetes. Hyperlipidemia. Hypertension. Left BKA. History of alcohol abuse and smoking until recently. 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 PLAN: On IV vancomycin and Ceftriaxone and Flagyl ( abx d# 39/42 ) upon DC will stop AB Rx -3 SP Cefepime #4 Monitor CBC. Monitor BMP.. Subjective Constitutional: Denies: no symptoms, fever, chills, fatigue, anorexia, drenching sweats, other Allergies: Coded Allergies: No Known Allergies (Unverified , 11/16/14) Subjective comfortable Objective Vital Signs Last 24 Hour Vital Signs Date Time Temp Pulse Resp B/P (MAP) Pulse Ox O2 Delivery O2 Flow Rate FiO2 06/28/17 16:00 99.0 81 18 132/85 99 Room Air 99.0 06/28/17 12:02 97.4 88 18 128/74 94 Room Air 97.4 06/28/17 08:12 118/68 06/28/17 08:01 98.2 84 18 107/60 94 Room Air 98.2 06/28/17 04:00 97.9 71 20 128/69 94 Room Air 97.9 06/28/17 00:33 Room Air 06/28/17 00:00 98.6 75 18 131/74 95 Room Air 98.6 06/27/17 21:17 Room Air Height (Feet): 5 Height (Inches): 7.00 Weight (Pounds): 180 HEENT: mucous membranes moist Respiratory/Chest: no respiratory distress Cardiovascular: normal rate, regularly irregular Laboratory Tests Test 06/28/17 06:35 White Blood Count 6.3 K/UL (4.8-10.8) Red Blood Count 4.48 M/UL (4.70-6.10) L Hemoglobin 12.9 G/DL (14.2-18.0) L Hematocrit 37.7 % (42.0-52.0) L Mean Corpuscular Volume 84 FL (80-99) Mean Corpuscular Hemoglobin 28.9 PG (27.0-31.0) Mean Corpuscular Hemoglobin Concent 34.3 G/DL (32.0-36.0) Red Cell Distribution Width 11.5 % (11.6-14.8) L Platelet Count 194 K/UL (150-450) Mean Platelet Volume 10.1 FL (6.5-10.1) Neutrophils (%) (Auto) 55.4 % (45.0-75.0) Lymphocytes (%) (Auto) 28.7 % (20.0-45.0) Monocytes (%) (Auto) 10.0 % (1.0-10.0) Eosinophils (%) (Auto) 5.0 % (0.0-3.0) H Basophils (%) (Auto) 0.9 % (0.0-2.0) Erythrocyte Sedimentation Rate 74 MM/HR (0-20) H Sodium Level 138 MMOL/L (136-145) Potassium Level 3.3 MMOL/L (3.5-5.1) L Chloride Level 102 MMOL/L (98-107) Carbon Dioxide Level 30 MMOL/L (21-32) Anion Gap 7 mmol/L (5-15) Blood Urea Nitrogen 17 mg/dL (7-18) Creatinine 1.2 MG/DL (0.55-1.30) Estimat Glomerular Filtration Rate > 60 mL/min (>60) Glucose Level 198 MG/DL (74-106) H Calcium Level 8.8 MG/DL (8.5-10.1) Phosphorus Level 3.6 MG/DL (2.5-4.9) Magnesium Level 1.8 MG/DL (1.8-2.4) Total Bilirubin 0.3 MG/DL (0.2-1.0) Aspartate Amino Transf (AST/SGOT) 19 U/L (15-37) Alanine Aminotransferase (ALT/SGPT) 17 U/L (12-78) Alkaline Phosphatase 41 U/L (46-116) L Total Protein 6.8 G/DL (6.4-8.2) Albumin 2.7 G/DL (3.4-5.0) L Globulin 4.1 g/dL Albumin/Globulin Ratio 0.7 (1.0-2.7) L Current Medications Medications (Trade) Dose Ordered Sig/Caden Route PRN Reason Start Time Stop Time Status Last Admin Dose Admin Ceftriaxone Sodium 2 gm/ Dextrose 110 ml @ 220 mls/hr Q24H IVPB 06/05/17 21:00 07/02/17 20:59 06/27/17 20:38 Clonidine HCl (Catapres Tab) 0.1 mg EVERY 6 HOURS PRN ORAL SBP >160mmHg 05/31/17 17:00 06/30/17 16:59 06/19/17 20:32 Clotrimazole (Lotrimin) 1 applic EVERY 12 HOURS TOPIC 06/14/17 15:30 07/14/17 15:29 06/28/17 08:13 Dextrose (Dextrose 50%) 25 ml STAT PRN IV Hypoglycemia 06/20/17 12:15 07/20/17 12:14 Dextrose (Dextrose 50%) 50 ml STAT PRN IV Hypoglycemia 06/20/17 12:00 07/20/17 11:59 Heparin Sodium (Porcine) (Heparin 5000 units/ml) 5,000 units EVERY 12 HOURS SUBQ 06/20/17 10:30 07/20/17 10:29 06/28/17 08:08 Insulin Aspart (NovoLOG) BEFORE MEALS AND HS SUBQ 06/20/17 12:45 07/20/17 12:44 06/28/17 16:58 Insulin Aspart (NovoLOG) 4 units NOVOTIAC SUBQ 06/12/17 11:50 07/09/17 11:49 06/28/17 16:57 Insulin Detemir (Levemir) 12 units Q24H SUBQ 06/07/17 07:30 07/04/17 07:29 06/28/17 08:10 Lisinopril (Prinivil) 40 mg DAILY ORAL 06/12/17 09:00 07/04/17 08:59 06/28/17 08:12 Metronidazole (Flagyl) 500 mg Q6HR ORAL 06/07/17 18:00 07/02/17 19:00 06/28/17 16:58 Sodium Hypochlorite (Dakin's Quarter Strength) 1 applic DAILY TOPIC 06/28/17 09:00 07/28/17 08:59 06/27/17 15:12 Vancomycin HCl (Vanco rx to dose) 1 ea DAILYPRN PRN MISC RX TO DOSE PROTOCOL 05/28/17 17:15 07/02/17 17:14 Vancomycin HCl/ Dextrose 250 ml @ 166.667 mls/hr Q18H IVPB 06/07/17 18:00 07/02/17 17:59 06/28/17 18:24 Yuriy Kelsey MD Jun 28, 2017 20:04
[2017-06-28] MEDS: cefTRIAXone 2 GM in D5W 110 ML IVPB SCH (20:26)
[2017-06-29] VITALS: BP 129/76
[2017-06-29] MEDS: metroNIDAZOLE 500mg tab ORAL SCH ×5 (00:46→23:02)
[2017-06-29 04:00] VITALS: BP 117/62
[2017-06-29] MEDS: NovoLOG Insulin Flexpen SUBQ SCH ×7 (06:41→20:32)
[2017-06-29] MEDS: Levemir Flexpen SUBQ SCH (06:42)
[2017-06-29 08:00] VITALS: BP 133/79
[2017-06-29] MEDS: Lisinopril 20mg tab ORAL SCH (08:25)
[2017-06-29] MEDS: Dakin's 0.125% Soln (Quarter Strength) 16oz TOPIC SCH (08:26)
[2017-06-29] MEDS: Heparin 5000 units/ml inj SUBQ SCH ×2 (08:32→20:31)
[2017-06-29 12:00] VITALS: BP 150/91
[2017-06-29] MEDS: Vancomycin 1250mg/D5W 250ml IVPB SCH (12:21)
--- NOTE | 2017-06-29 13:43 | Infectious Diseases Prog Note ---
Assessment/Plan Assessment/Plan The patient is a 66-year-old male with Right foot cellulitis. right big toe. osteo -MRI R foot: Findings suspicious for osteomyelitis of the distal aspect of the first distal phalanx -wound cx E.fecalis ([place] S), CoNS (likely represents colonizers) Fever, SP Normal white blood cells Influenza screening tests : Neg Diabetes. Hyperlipidemia. Hypertension. Left BKA. History of alcohol abuse and smoking until recently. 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 PLAN: On IV vancomycin and Ceftriaxone and Flagyl ( abx d# 40 /42 ) upon DC will stop AB Rx -05/24 SP Cefepime #4 Monitor CBC. Monitor BMP.. Subjective Allergies: Coded Allergies: No Known Allergies (Unverified , 11/16/14) Subjective comfortable Objective Vital Signs Last 24 Hour Vital Signs Date Time Temp Pulse Resp B/P (MAP) Pulse Ox O2 Delivery O2 Flow Rate FiO2 06/29/17 12:00 96.8 100 16 150/91 98 Room Air 96.8 06/29/17 08:25 133/79 06/29/17 08:00 97.7 80 18 133/79 96 Room Air 97.7 06/29/17 04:00 97.9 75 18 117/62 98 Room Air 97.9 06/29/17 00:00 98.2 81 18 129/76 99 Room Air 98.2 06/28/17 20:00 98.1 81 18 145/89 99 Room Air 98.1 06/28/17 16:00 99.0 81 18 132/85 99 Room Air 99.0 Height (Feet): 5 Height (Inches): 7.00 Weight (Pounds): 180 HEENT: atraumatic Respiratory/Chest: normal breath sounds Cardiovascular: regular rhythm Abdomen: no organomegaly Current Medications Medications (Trade) Dose Ordered Sig/Caden Route PRN Reason Start Time Stop Time Status Last Admin Dose Admin Ceftriaxone Sodium 2 gm/ Dextrose 110 ml @ 220 mls/hr Q24H IVPB 06/05/17 21:00 07/02/17 20:59 06/28/17 20:26 Clonidine HCl (Catapres Tab) 0.1 mg EVERY 6 HOURS PRN ORAL SBP >160mmHg 05/31/17 17:00 06/30/17 16:59 06/19/17 20:32 Clotrimazole (Lotrimin) 1 applic EVERY 12 HOURS TOPIC 06/14/17 15:30 07/14/17 15:29 06/29/17 08:25 Dextrose (Dextrose 50%) 25 ml STAT PRN IV Hypoglycemia 06/20/17 12:15 07/20/17 12:14 Dextrose (Dextrose 50%) 50 ml STAT PRN IV Hypoglycemia 06/20/17 12:00 07/20/17 11:59 Heparin Sodium (Porcine) (Heparin 5000 units/ml) 5,000 units EVERY 12 HOURS SUBQ 06/20/17 10:30 07/20/17 10:29 06/29/17 08:32 Insulin Aspart (NovoLOG) BEFORE MEALS AND HS SUBQ 06/20/17 12:45 07/20/17 12:44 06/29/17 12:17 Insulin Aspart (NovoLOG) 4 units NOVOTIAC SUBQ 06/12/17 11:50 07/09/17 11:49 06/29/17 12:18 Insulin Detemir (Levemir) 12 units Q24H SUBQ 06/07/17 07:30 07/04/17 07:29 06/29/17 06:42 Lisinopril (Prinivil) 40 mg DAILY ORAL 06/12/17 09:00 07/04/17 08:59 06/29/17 08:25 Metronidazole (Flagyl) 500 mg Q6HR ORAL 06/07/17 18:00 07/02/17 19:00 06/29/17 06:39 Sodium Hypochlorite (Dakin's Quarter Strength) 1 applic DAILY TOPIC 06/28/17 09:00 07/28/17 08:59 06/29/17 08:26 Vancomycin HCl (Vanco rx to dose) 1 ea DAILYPRN PRN MISC RX TO DOSE PROTOCOL 05/28/17 17:15 07/02/17 17:14 Vancomycin HCl/ Dextrose 250 ml @ 166.667 mls/hr Q18H IVPB 06/07/17 18:00 07/02/17 17:59 06/29/17 12:21 Yuriy Kelsey MD Jun 29, 2017 13:43
[2017-06-29 16:08] VITALS: BP 149/91
[2017-06-29 19:36] VITALS: BP 146/74
[2017-06-29] MEDS: cefTRIAXone 2 GM in D5W 110 ML IVPB SCH (20:29)
[2017-06-30 00:22] VITALS: BP 148/86
[2017-06-30 04:30] VITALS: BP 122/74
[2017-06-30] MEDS: metroNIDAZOLE 500mg tab ORAL SCH ×4 (05:04→23:46)
[2017-06-30] MEDS: Vancomycin 1250mg/D5W 250ml IVPB SCH (05:11)
[2017-06-30] MEDS: NovoLOG Insulin Flexpen SUBQ SCH ×7 (05:51→21:00)
[2017-06-30 08:00] VITALS: BP 126/72
[2017-06-30] MEDS: Heparin 5000 units/ml inj SUBQ SCH ×2 (09:02→20:27)
[2017-06-30] MEDS: Lisinopril 20mg tab ORAL SCH (09:08)
[2017-06-30] MEDS: Dakin's 0.125% Soln (Quarter Strength) 16oz TOPIC SCH (09:11)
[2017-06-30] MEDS: Levemir Flexpen SUBQ SCH (09:13)
[2017-06-30] MEDS ORDERED: NS 275ml ONE (09:50)
[2017-06-30] MEDS ORDERED: Tubing IV Secondary IV ONE (09:50)
[2017-06-30 12:00] VITALS: BP 131/78
--- NOTE | 2017-06-30 12:36 | Infectious Diseases Prog Note ---
Assessment/Plan Assessment/Plan The patient is a 66-year-old male with Right foot cellulitis. right big toe. osteo -MRI R foot: Findings suspicious for osteomyelitis of the distal aspect of the first distal phalanx -wound cx E.fecalis ([place] S), CoNS (likely represents colonizers) Fever, SP Normal white blood cells Influenza screening tests : Neg Diabetes. Hyperlipidemia. Hypertension. Left BKA. History of alcohol abuse and smoking until recently. 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 PLAN: On IV vancomycin and Ceftriaxone and Flagyl ( abx d# 41 /42 ) upon DC will stop AB Rx -05/24 SP Cefepime #4 Monitor CBC. Monitor BMP.. Subjective Constitutional: Denies: no symptoms, fever, chills, fatigue, anorexia, drenching sweats, other Allergies: Coded Allergies: No Known Allergies (Unverified , 11/16/14) Subjective comfortable Objective Vital Signs Last 24 Hour Vital Signs Date Time Temp Pulse Resp B/P (MAP) Pulse Ox O2 Delivery O2 Flow Rate FiO2 06/30/17 12:00 97.9 84 16 131/78 98 97.9 06/30/17 09:08 126/72 06/30/17 08:00 98.2 78 18 126/72 95 98.2 06/30/17 04:30 97.9 89 20 122/74 98 Room Air 97.9 06/30/17 00:22 98.1 87 20 148/86 97 Room Air 98.1 06/29/17 19:36 97.7 81 20 146/74 97 Room Air 97.7 06/29/17 16:08 98.1 80 20 149/91 98 Room Air 98.1 Height (Feet): 5 Height (Inches): 7.00 Weight (Pounds): 180 HEENT: anicteric Respiratory/Chest: normal breath sounds Cardiovascular: regular rhythm Abdomen: no organomegaly Current Medications Medications (Trade) Dose Ordered Sig/Caden Route PRN Reason Start Time Stop Time Status Last Admin Dose Admin Ceftriaxone Sodium 2 gm/ Dextrose 110 ml @ 220 mls/hr Q24H IVPB 06/05/17 21:00 07/02/17 20:59 06/29/17 20:29 Clonidine HCl (Catapres Tab) 0.1 mg EVERY 6 HOURS PRN ORAL SBP >160mmHg 05/31/17 17:00 06/30/17 16:59 06/19/17 20:32 Clotrimazole (Lotrimin) 1 applic EVERY 12 HOURS TOPIC 06/14/17 15:30 07/14/17 15:29 06/30/17 09:10 Dextrose (Dextrose 50%) 25 ml STAT PRN IV Hypoglycemia 06/20/17 12:15 07/20/17 12:14 Dextrose (Dextrose 50%) 50 ml STAT PRN IV Hypoglycemia 06/20/17 12:00 07/20/17 11:59 Heparin Sodium (Porcine) (Heparin 5000 units/ml) 5,000 units EVERY 12 HOURS SUBQ 06/20/17 10:30 07/20/17 10:29 06/30/17 09:02 Insulin Aspart (NovoLOG) BEFORE MEALS AND HS SUBQ 06/20/17 12:45 07/20/17 12:44 06/30/17 12:00 Insulin Aspart (NovoLOG) 4 units NOVOTIAC SUBQ 06/12/17 11:50 07/09/17 11:49 06/30/17 12:00 Insulin Detemir (Levemir) 12 units Q24H SUBQ 06/07/17 07:30 07/04/17 07:29 06/30/17 09:13 Lisinopril (Prinivil) 40 mg DAILY ORAL 06/12/17 09:00 07/04/17 08:59 06/30/17 09:08 Metronidazole (Flagyl) 500 mg Q6HR ORAL 06/07/17 18:00 07/02/17 19:00 06/30/17 12:02 Sodium Hypochlorite (Dakin's Quarter Strength) 1 applic DAILY TOPIC 06/28/17 09:00 07/28/17 08:59 06/30/17 09:11 Vancomycin HCl (Vanco rx to dose) 1 ea DAILYPRN PRN MISC RX TO DOSE PROTOCOL 05/28/17 17:15 07/02/17 17:14 Vancomycin HCl/ Dextrose 250 ml @ 166.667 mls/hr Q18H IVPB 06/07/17 18:00 07/02/17 17:59 06/30/17 05:11 Yuriy Kelsey MD Jun 30, 2017 12:36
[2017-06-30 16:00] VITALS: BP 157/86
--- NOTE | 2017-06-30 19:48 | Pulmonology Progress Note ---
Assessment/Plan Problems: (1) Osteomyelitis of ankle or foot, acute (2) Cellulitis of right lower extremity (3) Ulcer of heel and midfoot (4) ETOH abuse (5) HTN (hypertension) (6) Diabetes (7) Anemia (8) S/P BKA (below knee amputation) Assessment/Plan labs reviewed no new events skin getting much better pt/ot eating better, leg wounds looks better dc planning to a detention \ Subjective ROS Limited/Unobtainable: No Interval Events: late note for 06/29 Constitutional: Reports: no symptoms HEENT: Repors: no symptoms Respiratory: Reports: no symptoms Allergies: Coded Allergies: No Known Allergies (Unverified , 11/16/14) Objective Last 24 Hour Vital Signs Date Time Temp Pulse Resp B/P (MAP) Pulse Ox O2 Delivery O2 Flow Rate FiO2 06/30/17 16:00 98.4 73 18 157/86 78 98.4 06/30/17 12:00 97.9 84 16 131/78 98 97.9 06/30/17 09:08 126/72 06/30/17 08:00 98.2 78 18 126/72 95 98.2 06/30/17 04:30 97.9 89 20 122/74 98 Room Air 97.9 06/30/17 00:22 98.1 87 20 148/86 97 Room Air 98.1 Intake and Output 06/29/17 06/30/17 19:00 07:00 Intake Total 790.000 ml Output Total 500 ml Balance 290.000 ml Intake Oral 540 ml IV Total 250.000 ml Output Urine Total 500 ml # Voids 5 # Bowel Movements 1 Objective General Appearance: WD/WN HEENT: normocephalic, atraumatic Respiratory/Chest: chest wall non-tender, lungs clear Breasts: no masses Cardiovascular: normal peripheral pulses, regular rhythm Abdomen: normal bowel sounds, soft, non tender Genitourinary: normal external genitalia Extremities: no cyanosis, aka Skin: extensive keratic lesions on leg Current Medications Medications (Trade) Dose Ordered Sig/Caden Route PRN Reason Start Time Stop Time Status Last Admin Dose Admin Ceftriaxone Sodium 2 gm/ Dextrose 110 ml @ 220 mls/hr Q24H IVPB 06/05/17 21:00 07/02/17 20:59 06/29/17 20:29 Clotrimazole (Lotrimin) 1 applic EVERY 12 HOURS TOPIC 06/14/17 15:30 07/14/17 15:29 06/30/17 09:10 Dextrose (Dextrose 50%) 25 ml STAT PRN IV Hypoglycemia 06/20/17 12:15 07/20/17 12:14 Dextrose (Dextrose 50%) 50 ml STAT PRN IV Hypoglycemia 06/20/17 12:00 07/20/17 11:59 Heparin Sodium (Porcine) (Heparin 5000 units/ml) 5,000 units EVERY 12 HOURS SUBQ 06/20/17 10:30 07/20/17 10:29 06/30/17 09:02 Insulin Aspart (NovoLOG) BEFORE MEALS AND HS SUBQ 06/20/17 12:45 07/20/17 12:44 06/30/17 17:05 Insulin Aspart (NovoLOG) 4 units NOVOTIAC SUBQ 06/12/17 11:50 07/09/17 11:49 06/30/17 17:04 Insulin Detemir (Levemir) 12 units Q24H SUBQ 06/07/17 07:30 07/04/17 07:29 06/30/17 09:13 Lisinopril (Prinivil) 40 mg DAILY ORAL 06/12/17 09:00 07/04/17 08:59 06/30/17 09:08 Metronidazole (Flagyl) 500 mg Q6HR ORAL 06/07/17 18:00 07/02/17 19:00 06/30/17 18:03 Sodium Hypochlorite (Dakin's Quarter Strength) 1 applic DAILY TOPIC 06/28/17 09:00 07/28/17 08:59 06/30/17 09:11 Vancomycin HCl (Vanco rx to dose) 1 ea DAILYPRN PRN MISC RX TO DOSE PROTOCOL 05/28/17 17:15 07/02/17 17:14 Vancomycin HCl/ Dextrose 250 ml @ 166.667 mls/hr Q18H IVPB 06/07/17 18:00 07/02/17 17:59 06/30/17 05:11 Kyra Massey MD Jun 30, 2017 19:48
[2017-06-30 20:00] VITALS: BP 131/85
[2017-06-30] MEDS: cefTRIAXone 2 GM in D5W 110 ML IVPB SCH (20:22)
[2017-07-01] MEDS: Vancomycin 1250mg/D5W 250ml IVPB SCH ×2 (02:21→17:03)
[2017-07-01 04:00] VITALS: BP 110/67
[2017-07-01] MEDS: metroNIDAZOLE 500mg tab ORAL SCH ×3 (05:54→17:03)
[2017-07-01] MEDS: NovoLOG Insulin Flexpen SUBQ SCH ×7 (05:55→20:52)
[2017-07-01 08:00] VITALS: BP 134/82
[2017-07-01] MEDS: Dakin's 0.125% Soln (Quarter Strength) 16oz TOPIC SCH (08:13)
[2017-07-01] MEDS: Lisinopril 20mg tab ORAL SCH (08:14)
[2017-07-01] MEDS: Levemir Flexpen SUBQ SCH (08:17)
[2017-07-01] MEDS: Heparin 5000 units/ml inj SUBQ SCH ×2 (08:18→20:53)
--- NOTE | 2017-07-01 10:53 | Infectious Diseases Prog Note ---
Assessment/Plan Assessment/Plan The patient is a 66-year-old male with Right foot cellulitis. right big toe. osteo -MRI R foot: Findings suspicious for osteomyelitis of the distal aspect of the first distal phalanx -wound cx E.fecalis ([place] S), CoNS (likely represents colonizers) Fever, SP Normal white blood cells Influenza screening tests : Neg Diabetes. Hyperlipidemia. Hypertension. Left BKA. History of alcohol abuse and smoking until recently. 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 PLAN: DC IV vancomycin and Ceftriaxone and Flagyl ( abx d# 42/42 ) , and monitor pt off of AB Rx -05/24 SP Cefepime #4 Monitor CBC. Monitor BMP.. Subjective Allergies: Coded Allergies: No Known Allergies (Unverified , 11/16/14) Subjective comfortable Objective Vital Signs Last 24 Hour Vital Signs Date Time Temp Pulse Resp B/P (MAP) Pulse Ox O2 Delivery O2 Flow Rate FiO2 07/01/17 08:14 110/67 07/01/17 08:00 97.7 78 18 134/82 94 97.7 07/01/17 04:00 Room Air 07/01/17 04:00 97.9 78 15 110/67 96 97.9 06/30/17 20:00 97.9 78 18 131/85 97 97.9 06/30/17 20:00 Room Air 06/30/17 16:00 98.4 73 18 157/86 78 98.4 06/30/17 12:00 97.9 84 16 131/78 98 97.9 Height (Feet): 5 Height (Inches): 7.00 Weight (Pounds): 180 HEENT: anicteric Respiratory/Chest: respiratory distress Cardiovascular: normal rate Abdomen: no organomegaly Laboratory Tests Test 07/01/17 00:40 Vancomycin Level Trough 17.0 ug/mL (5.0-12.0) H Current Medications Medications (Trade) Dose Ordered Sig/Caden Route PRN Reason Start Time Stop Time Status Last Admin Dose Admin Ceftriaxone Sodium 2 gm/ Dextrose 110 ml @ 220 mls/hr Q24H IVPB 06/05/17 21:00 07/02/17 20:59 06/30/17 20:22 Clotrimazole (Lotrimin) 1 applic EVERY 12 HOURS TOPIC 06/14/17 15:30 07/14/17 15:29 07/01/17 08:13 Dextrose (Dextrose 50%) 25 ml STAT PRN IV Hypoglycemia 06/20/17 12:15 07/20/17 12:14 Dextrose (Dextrose 50%) 50 ml STAT PRN IV Hypoglycemia 06/20/17 12:00 07/20/17 11:59 Heparin Sodium (Porcine) (Heparin 5000 units/ml) 5,000 units EVERY 12 HOURS SUBQ 06/20/17 10:30 07/20/17 10:29 07/01/17 08:18 Insulin Aspart (NovoLOG) BEFORE MEALS AND HS SUBQ 06/20/17 12:45 07/20/17 12:44 07/01/17 05:55 Insulin Aspart (NovoLOG) 4 units NOVOTIAC SUBQ 06/12/17 11:50 07/09/17 11:49 07/01/17 05:55 Insulin Detemir (Levemir) 12 units Q24H SUBQ 06/07/17 07:30 07/04/17 07:29 07/01/17 08:17 Lisinopril (Prinivil) 40 mg DAILY ORAL 06/12/17 09:00 07/04/17 08:59 07/01/17 08:14 Metronidazole (Flagyl) 500 mg Q6HR ORAL 06/07/17 18:00 07/02/17 19:00 07/01/17 05:54 Sodium Hypochlorite (Dakin's Quarter Strength) 1 applic DAILY TOPIC 06/28/17 09:00 07/28/17 08:59 07/01/17 08:13 Vancomycin HCl (Vanco rx to dose) 1 ea DAILYPRN PRN MISC RX TO DOSE PROTOCOL 05/28/17 17:15 07/02/17 17:14 Vancomycin HCl/ Dextrose 250 ml @ 166.667 mls/hr Q18H IVPB 06/07/17 18:00 07/02/17 17:59 07/01/17 02:21 Yuriy Kelsey MD Jul 01, 2017 10:53
[2017-07-01 12:00] VITALS: BP 142/89
[2017-07-01 16:21] VITALS: BP 151/86
--- NOTE | 2017-07-01 16:43 | Pulmonology Progress Note ---
Assessment/Plan Problems: (1) Osteomyelitis of ankle or foot, acute (2) Cellulitis of right lower extremity (3) Ulcer of heel and midfoot (4) ETOH abuse (5) HTN (hypertension) (6) Diabetes (7) Anemia (8) S/P BKA (below knee amputation) Assessment/Plan no new events skin getting much better pt/ot eating better, leg wounds looks better dc planning to a assisted \ Subjective ROS Limited/Unobtainable: No Constitutional: Reports: no symptoms HEENT: Repors: no symptoms Respiratory: Reports: no symptoms Allergies: Coded Allergies: No Known Allergies (Unverified , 11/16/14) Objective Last 24 Hour Vital Signs Date Time Temp Pulse Resp B/P (MAP) Pulse Ox O2 Delivery O2 Flow Rate FiO2 07/01/17 16:21 98.6 79 19 151/86 95 Room Air 98.6 07/01/17 12:00 97.9 75 20 142/89 95 97.9 07/01/17 08:14 110/67 07/01/17 08:00 97.7 78 18 134/82 94 97.7 07/01/17 04:00 Room Air 07/01/17 04:00 97.9 78 15 110/67 96 97.9 06/30/17 20:00 97.9 78 18 131/85 97 97.9 06/30/17 20:00 Room Air Intake and Output 06/30/17 07/01/17 19:00 07:00 Intake Total 240 ml 560.000 ml Output Total 100 ml Balance 240 ml 460.000 ml Intake Oral 240 ml 200 ml IV Total 360.000 ml Output Urine Total 100 ml # Voids 2 3 Objective General Appearance: WD/WN HEENT: normocephalic, atraumatic Respiratory/Chest: chest wall non-tender, lungs clear Breasts: no masses Cardiovascular: normal peripheral pulses, regular rhythm Abdomen: normal bowel sounds, soft, non tender Genitourinary: normal external genitalia Extremities: no cyanosis, aka Skin: extensive keratic lesions on leg Laboratory Tests 07/01/17 00:40: Vancomycin Level Trough 17.0H Current Medications Medications (Trade) Dose Ordered Sig/Caden Route PRN Reason Start Time Stop Time Status Last Admin Dose Admin Ceftriaxone Sodium 2 gm/ Dextrose 110 ml @ 220 mls/hr Q24H IVPB 06/05/17 21:00 07/01/17 23:00 06/30/17 20:22 Clotrimazole (Lotrimin) 1 applic EVERY 12 HOURS TOPIC 06/14/17 15:30 07/14/17 15:29 07/01/17 08:13 Dextrose (Dextrose 50%) 25 ml STAT PRN IV Hypoglycemia 06/20/17 12:15 07/20/17 12:14 Dextrose (Dextrose 50%) 50 ml STAT PRN IV Hypoglycemia 06/20/17 12:00 07/20/17 11:59 Heparin Sodium (Porcine) (Heparin 5000 units/ml) 5,000 units EVERY 12 HOURS SUBQ 06/20/17 10:30 07/20/17 10:29 07/01/17 08:18 Insulin Aspart (NovoLOG) BEFORE MEALS AND HS SUBQ 06/20/17 12:45 07/20/17 12:44 07/01/17 11:59 Insulin Aspart (NovoLOG) 4 units NOVOTIAC SUBQ 06/12/17 11:50 07/09/17 11:49 07/01/17 11:59 Insulin Detemir (Levemir) 12 units Q24H SUBQ 06/07/17 07:30 07/04/17 07:29 07/01/17 08:17 Lisinopril (Prinivil) 40 mg DAILY ORAL 06/12/17 09:00 07/04/17 08:59 07/01/17 08:14 Metronidazole (Flagyl) 500 mg Q6HR ORAL 06/07/17 18:00 07/01/17 23:00 07/01/17 11:55 Sodium Hypochlorite (Dakin's Quarter Strength) 1 applic DAILY TOPIC 06/28/17 09:00 07/28/17 08:59 07/01/17 08:13 Vancomycin HCl (Vanco rx to dose) 1 ea DAILYPRN PRN MISC RX TO DOSE PROTOCOL 05/28/17 17:15 07/01/17 23:00 Vancomycin HCl/ Dextrose 250 ml @ 166.667 mls/hr Q18H IVPB 06/07/17 18:00 07/01/17 23:00 07/01/17 02:21 Kyra Massey MD Jul 01, 2017 16:43
[2017-07-01 20:00] VITALS: BP 158/87
[2017-07-01] MEDS: cefTRIAXone 2 GM in D5W 110 ML IVPB SCH (20:49)
[2017-07-02] VITALS: BP 139/83
[2017-07-02 04:00] VITALS: BP 140/80
[2017-07-02] MEDS: NovoLOG Insulin Flexpen SUBQ SCH ×7 (06:46→20:47)
[2017-07-02 08:00] VITALS: BP 147/89
[2017-07-02] MEDS: Lisinopril 20mg tab ORAL SCH (08:35)
[2017-07-02] MEDS: Levemir Flexpen SUBQ SCH (08:40)
[2017-07-02] MEDS: Heparin 5000 units/ml inj SUBQ SCH ×2 (08:41→20:48)
[2017-07-02] MEDS: Dakin's 0.125% Soln (Quarter Strength) 16oz TOPIC SCH (08:42)
--- NOTE | 2017-07-02 10:02 | Infectious Diseases Prog Note ---
Assessment/Plan Assessment/Plan The patient is a 66-year-old male with Right foot cellulitis. right big toe. osteo -MRI R foot: Findings suspicious for osteomyelitis of the distal aspect of the first distal phalanx -wound cx E.fecalis ([place] S), CoNS (likely represents colonizers) Fever, SP Normal white blood cells Influenza screening tests : Neg RP : 2.4 06/28 ESR : 74 Diabetes. Hyperlipidemia. Hypertension. Left BKA. History of alcohol abuse and smoking until recently. 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 PLAN: monitor pt off of AB Rx - 07/01 SP IV vancomycin and Ceftriaxone and Flagyl ( abx d# 42/42 ) -05/24 SP Cefepime #4 Monitor CBC. Monitor BMP. ESR/ CRP : P Subjective Constitutional: Denies: no symptoms, fever, chills, fatigue, anorexia, drenching sweats, other Allergies: Coded Allergies: No Known Allergies (Unverified , 11/16/14) Subjective comfortable Objective Vital Signs Last 24 Hour Vital Signs Date Time Temp Pulse Resp B/P (MAP) Pulse Ox O2 Delivery O2 Flow Rate FiO2 07/02/17 08:35 140/80 07/02/17 04:00 98.0 83 15 140/80 99 98.0 07/02/17 00:00 97.7 87 16 139/83 97 97.7 07/01/17 20:00 97.7 75 15 158/87 98 97.7 07/01/17 16:21 98.6 79 19 151/86 95 Room Air 98.6 07/01/17 12:00 97.9 75 20 142/89 95 97.9 Height (Feet): 5 Height (Inches): 7.00 Weight (Pounds): 180 HEENT: anicteric Respiratory/Chest: normal breath sounds Cardiovascular: regular rhythm Abdomen: soft, non tender Current Medications Medications (Trade) Dose Ordered Sig/Caden Route PRN Reason Start Time Stop Time Status Last Admin Dose Admin Clotrimazole (Lotrimin) 1 applic EVERY 12 HOURS TOPIC 06/14/17 15:30 07/14/17 15:29 07/02/17 08:42 Dextrose (Dextrose 50%) 25 ml STAT PRN IV Hypoglycemia 06/20/17 12:15 07/20/17 12:14 Dextrose (Dextrose 50%) 50 ml STAT PRN IV Hypoglycemia 06/20/17 12:00 07/20/17 11:59 Heparin Sodium (Porcine) (Heparin 5000 units/ml) 5,000 units EVERY 12 HOURS SUBQ 06/20/17 10:30 07/20/17 10:29 07/01/17 20:53 Insulin Aspart (NovoLOG) BEFORE MEALS AND HS SUBQ 06/20/17 12:45 07/20/17 12:44 07/02/17 06:46 Insulin Aspart (NovoLOG) 4 units NOVOTIAC SUBQ 06/12/17 11:50 07/09/17 11:49 07/02/17 06:47 Insulin Detemir (Levemir) 12 units Q24H SUBQ 06/07/17 07:30 07/04/17 07:29 07/02/17 08:40 Lisinopril (Prinivil) 40 mg DAILY ORAL 06/12/17 09:00 07/04/17 08:59 07/02/17 08:35 Sodium Hypochlorite (Dakin's Quarter Strength) 1 applic DAILY TOPIC 06/28/17 09:00 07/28/17 08:59 07/02/17 08:42 Yuriy Kelsey MD Jul 02, 2017 10:02
[2017-07-02 12:00] VITALS: BP 130/76
--- NOTE | 2017-07-02 14:56 | Pulmonology Progress Note ---
Assessment/Plan Problems: (1) Osteomyelitis of ankle or foot, acute (2) Cellulitis of right lower extremity (3) Ulcer of heel and midfoot (4) ETOH abuse (5) HTN (hypertension) (6) Diabetes (7) Anemia (8) S/P BKA (below knee amputation) Assessment/Plan no new events skin getting much better pt/ot eating better, leg wounds looks better dc planning to a long-term \ Subjective ROS Limited/Unobtainable: No Allergies: Coded Allergies: No Known Allergies (Unverified , 11/16/14) Objective Last 24 Hour Vital Signs Date Time Temp Pulse Resp B/P (MAP) Pulse Ox O2 Delivery O2 Flow Rate FiO2 07/02/17 12:00 98.1 76 20 130/76 95 Room Air 98.1 07/02/17 08:35 140/80 07/02/17 08:00 98.2 76 20 96 Room Air 98.2 07/02/17 08:00 98.2 76 21 147/89 98 98.2 07/02/17 04:00 98.0 83 15 140/80 99 98.0 07/02/17 00:00 97.7 87 16 139/83 97 97.7 07/01/17 20:00 97.7 75 15 158/87 98 97.7 07/01/17 16:21 98.6 79 19 151/86 95 Room Air 98.6 Intake and Output 07/01/17 07/02/17 19:00 07:00 Intake Total 610 ml 110 ml Output Total 700 ml 900 ml Balance -90 ml -790 ml Intake Oral 360 ml IV Total 250 ml 110 ml Output Urine Total 700 ml 900 ml # Bowel Movements 1 Objective General Appearance: WD/WN HEENT: normocephalic, atraumatic Respiratory/Chest: chest wall non-tender, lungs clear Breasts: no masses Cardiovascular: normal peripheral pulses, regular rhythm Abdomen: normal bowel sounds, soft, non tender Genitourinary: normal external genitalia Extremities: no cyanosis, aka Skin: extensive keratic lesions on leg Laboratory Tests 07/02/17 10:25: Erythrocyte Sedimentation Rate 31H, C-Reactive Protein, Quantitative < 0.4 Current Medications Medications (Trade) Dose Ordered Sig/Caden Route PRN Reason Start Time Stop Time Status Last Admin Dose Admin Clotrimazole (Lotrimin) 1 applic EVERY 12 HOURS TOPIC 06/14/17 15:30 07/14/17 15:29 07/02/17 08:42 Dextrose (Dextrose 50%) 25 ml STAT PRN IV Hypoglycemia 06/20/17 12:15 07/20/17 12:14 Dextrose (Dextrose 50%) 50 ml STAT PRN IV Hypoglycemia 06/20/17 12:00 07/20/17 11:59 Heparin Sodium (Porcine) (Heparin 5000 units/ml) 5,000 units EVERY 12 HOURS SUBQ 06/20/17 10:30 07/20/17 10:29 07/01/17 20:53 Insulin Aspart (NovoLOG) BEFORE MEALS AND HS SUBQ 06/20/17 12:45 07/20/17 12:44 07/02/17 12:19 Insulin Aspart (NovoLOG) 4 units NOVOTIAC SUBQ 06/12/17 11:50 07/09/17 11:49 07/02/17 12:19 Insulin Detemir (Levemir) 12 units Q24H SUBQ 06/07/17 07:30 07/04/17 07:29 07/02/17 08:40 Lisinopril (Prinivil) 40 mg DAILY ORAL 06/12/17 09:00 07/04/17 08:59 07/02/17 08:35 Sodium Hypochlorite (Dakin's Quarter Strength) 1 applic DAILY TOPIC 06/28/17 09:00 07/28/17 08:59 07/02/17 08:42 Kyra Massey MD Jul 02, 2017 14:56
[2017-07-02 16:00] VITALS: BP 145/86
[2017-07-02 20:00] VITALS: BP 138/81
[2017-07-03] VITALS: BP 119/69
[2017-07-03 04:00] VITALS: BP 132/77
[2017-07-03] MEDS: NovoLOG Insulin Flexpen SUBQ SCH ×7 (06:54→21:00)
[2017-07-03 08:00] VITALS: BP 110/69
[2017-07-03] MEDS: Levemir Flexpen SUBQ SCH (08:13)
[2017-07-03] MEDS: Dakin's 0.125% Soln (Quarter Strength) 16oz TOPIC SCH (09:13)
[2017-07-03] MEDS: Lisinopril 20mg tab ORAL SCH (09:13)
[2017-07-03] MEDS: Heparin 5000 units/ml inj SUBQ SCH ×2 (09:17→21:21)
--- NOTE | 2017-07-03 11:00 | Pulmonology Progress Note ---
Assessment/Plan Problems: (1) Osteomyelitis of ankle or foot, acute (2) Cellulitis of right lower extremity (3) Ulcer of heel and midfoot (4) ETOH abuse (5) HTN (hypertension) (6) Diabetes (7) Anemia (8) S/P BKA (below knee amputation) Assessment/Plan all reviewed no new events skin getting much better pt/ot reordered eating better, leg wounds looks better dc planning to a detention \ Subjective ROS Limited/Unobtainable: No Constitutional: Reports: no symptoms Respiratory: Reports: no symptoms Allergies: Coded Allergies: No Known Allergies (Unverified , 11/16/14) Objective Last 24 Hour Vital Signs Date Time Temp Pulse Resp B/P (MAP) Pulse Ox O2 Delivery O2 Flow Rate FiO2 07/03/17 09:13 110/69 07/03/17 08:00 97.3 78 18 110/69 94 97.3 07/03/17 04:00 97.9 78 20 132/77 96 Room Air 97.9 07/03/17 04:00 Room Air 07/03/17 00:00 97.7 73 19 119/69 95 Room Air 97.7 07/03/17 00:00 Room Air 07/02/17 20:00 98.2 79 18 138/81 98 Room Air 98.2 07/02/17 20:00 Room Air 07/02/17 16:00 98.1 86 18 145/86 95 Room Air 98.1 07/02/17 12:00 98.1 76 20 130/76 95 Room Air 98.1 Intake and Output 07/02/17 07/03/17 19:00 07:00 Intake Total 600 ml 120 ml Output Total 1500 ml 400 ml Balance -900 ml -280 ml Intake Oral 600 ml 120 ml Output Urine Total 1500 ml 400 ml Stool Total 0 ml # Voids 5 4 # Bowel Movements 1 Objective General Appearance: WD/WN HEENT: normocephalic, atraumatic Respiratory/Chest: chest wall non-tender, lungs clear Breasts: no masses Cardiovascular: normal peripheral pulses, regular rhythm Abdomen: normal bowel sounds, soft, non tender Genitourinary: normal external genitalia Extremities: no cyanosis, aka Skin: extensive keratic lesions on leg Current Medications Medications (Trade) Dose Ordered Sig/Caden Route PRN Reason Start Time Stop Time Status Last Admin Dose Admin Clotrimazole (Lotrimin) 1 applic EVERY 12 HOURS TOPIC 06/14/17 15:30 07/14/17 15:29 07/03/17 09:13 Dextrose (Dextrose 50%) 25 ml STAT PRN IV Hypoglycemia 06/20/17 12:15 07/20/17 12:14 Dextrose (Dextrose 50%) 50 ml STAT PRN IV Hypoglycemia 06/20/17 12:00 07/20/17 11:59 Heparin Sodium (Porcine) (Heparin 5000 units/ml) 5,000 units EVERY 12 HOURS SUBQ 06/20/17 10:30 07/20/17 10:29 07/03/17 09:17 Insulin Aspart (NovoLOG) BEFORE MEALS AND HS SUBQ 06/20/17 12:45 07/20/17 12:44 07/03/17 06:54 Insulin Aspart (NovoLOG) 4 units NOVOTIAC SUBQ 06/12/17 11:50 07/09/17 11:49 07/03/17 06:55 Insulin Detemir (Levemir) 12 units Q24H SUBQ 06/07/17 07:30 07/04/17 07:29 07/03/17 08:13 Lisinopril (Prinivil) 40 mg DAILY ORAL 06/12/17 09:00 07/04/17 08:59 07/03/17 09:13 Sodium Hypochlorite (Dakin's Quarter Strength) 1 applic DAILY TOPIC 06/28/17 09:00 07/28/17 08:59 07/03/17 09:13 Kyra Massey MD Jul 03, 2017 11:00
[2017-07-03 12:00] VITALS: BP 114/70
--- NOTE | 2017-07-03 13:04 | Infectious Diseases Prog Note ---
Assessment/Plan Assessment/Plan The patient is a 66-year-old male with Right foot cellulitis. right big toe. osteo -MRI R foot: Findings suspicious for osteomyelitis of the distal aspect of the first distal phalanx -wound cx E.fecalis ([place] S), CoNS (likely represents colonizers) Fever, SP Normal white blood cells Influenza screening tests : Neg RP : 2.4 => 07/02 : 0.4 06/28 ESR : 74 => 07/02 : 31 Diabetes. Hyperlipidemia. Hypertension. Left BKA. History of alcohol abuse and smoking until recently. 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 PLAN: monitor pt off of IV AB Rx Clotrimazole topical - 07/01 SP IV vancomycin and Ceftriaxone and Flagyl ( abx d# 42/42 ) -05/24 SP Cefepime #4 Monitor CBC. Monitor BMP. dc planning to a [facility] Subjective Constitutional: Denies: no symptoms, fever, chills, fatigue, anorexia, drenching sweats, other Allergies: Coded Allergies: No Known Allergies (Unverified , 11/16/14) Subjective comfortable Objective Vital Signs Last 24 Hour Vital Signs Date Time Temp Pulse Resp B/P (MAP) Pulse Ox O2 Delivery O2 Flow Rate FiO2 07/03/17 12:00 97.4 80 18 114/70 95 97.4 07/03/17 09:13 110/69 07/03/17 08:00 97.3 78 18 110/69 94 97.3 07/03/17 04:00 97.9 78 20 132/77 96 Room Air 97.9 07/03/17 04:00 Room Air 07/03/17 00:00 97.7 73 19 119/69 95 Room Air 97.7 07/03/17 00:00 Room Air 07/02/17 20:00 98.2 79 18 138/81 98 Room Air 98.2 07/02/17 20:00 Room Air 07/02/17 16:00 98.1 86 18 145/86 95 Room Air 98.1 Height (Feet): 5 Height (Inches): 7.00 Weight (Pounds): 180 HEENT: anicteric Respiratory/Chest: no respiratory distress Cardiovascular: regularly irregular Abdomen: no organomegaly Current Medications Medications (Trade) Dose Ordered Sig/Caden Route PRN Reason Start Time Stop Time Status Last Admin Dose Admin Clotrimazole (Lotrimin) 1 applic EVERY 12 HOURS TOPIC 06/14/17 15:30 07/14/17 15:29 07/03/17 09:13 Dextrose (Dextrose 50%) 25 ml STAT PRN IV Hypoglycemia 06/20/17 12:15 07/20/17 12:14 Dextrose (Dextrose 50%) 50 ml STAT PRN IV Hypoglycemia 06/20/17 12:00 07/20/17 11:59 Heparin Sodium (Porcine) (Heparin 5000 units/ml) 5,000 units EVERY 12 HOURS SUBQ 06/20/17 10:30 07/20/17 10:29 07/03/17 09:17 Insulin Aspart (NovoLOG) BEFORE MEALS AND HS SUBQ 06/20/17 12:45 07/20/17 12:44 07/03/17 11:46 Insulin Aspart (NovoLOG) 4 units NOVOTIAC SUBQ 06/12/17 11:50 07/09/17 11:49 07/03/17 12:48 Insulin Detemir (Levemir) 12 units Q24H SUBQ 06/07/17 07:30 07/04/17 07:29 07/03/17 08:13 Lisinopril (Prinivil) 40 mg DAILY ORAL 06/12/17 09:00 07/04/17 08:59 07/03/17 09:13 Sodium Hypochlorite (Dakin's Quarter Strength) 1 applic DAILY TOPIC 06/28/17 09:00 07/28/17 08:59 07/03/17 09:13 Yuriy Kelsey MD Jul 03, 2017 13:04
[2017-07-03 15:45] VITALS: BP 140/79
[2017-07-03 20:00] VITALS: BP 134/76
[2017-07-04] VITALS: BP 129/82
[2017-07-04 04:00] VITALS: BP 146/73
[2017-07-04] MEDS: NovoLOG Insulin Flexpen SUBQ SCH ×7 (06:31→20:56)
[2017-07-04 08:00] VITALS: BP 154/87
[2017-07-04] MEDS: Dakin's 0.125% Soln (Quarter Strength) 16oz TOPIC SCH (09:05)
[2017-07-04] MEDS: Heparin 5000 units/ml inj SUBQ SCH ×2 (09:07→21:00)
[2017-07-04 16:00] VITALS: BP 152/83
[2017-07-04 20:00] VITALS: BP 143/84
--- NOTE | 2017-07-04 21:42 | Pulmonology Progress Note ---
Assessment/Plan Problems: (1) Osteomyelitis of ankle or foot, acute (2) Cellulitis of right lower extremity (3) Ulcer of heel and midfoot (4) ETOH abuse (5) HTN (hypertension) (6) Diabetes (7) Anemia (8) S/P BKA (below knee amputation) Assessment/Plan all reviewed no new events skin getting much better pt/ot reordered eating better, leg wounds looks better dc planning to a [facility] \ Subjective ROS Limited/Unobtainable: No Allergies: Coded Allergies: No Known Allergies (Unverified , 11/16/14) Objective Last 24 Hour Vital Signs Date Time Temp Pulse Resp B/P (MAP) Pulse Ox O2 Delivery O2 Flow Rate FiO2 07/04/17 20:00 97.7 73 19 143/84 97 Room Air 97.7 07/04/17 16:00 97.8 78 18 152/83 98 Room Air 97.8 07/04/17 08:00 97.4 69 18 154/87 95 Room Air 97.4 07/04/17 04:00 97.9 80 18 146/73 94 Room Air 97.9 07/04/17 00:00 97.3 79 18 129/82 95 Room Air 97.3 Intake and Output 07/03/17 07/04/17 19:00 07:00 Intake Total 480 ml 480 ml Output Total 700 ml Balance 480 ml -220 ml Intake Oral 480 ml 480 ml Output Urine Total 700 ml # Bowel Movements 1 Objective General Appearance: WD/WN HEENT: normocephalic, atraumatic Respiratory/Chest: chest wall non-tender, lungs clear Breasts: no masses Cardiovascular: normal peripheral pulses, regular rhythm Abdomen: normal bowel sounds, soft, non tender Genitourinary: normal external genitalia Extremities: no cyanosis, aka Skin: extensive keratic lesions on leg Current Medications Medications (Trade) Dose Ordered Sig/Caden Route PRN Reason Start Time Stop Time Status Last Admin Dose Admin Clotrimazole (Lotrimin) 1 applic EVERY 12 HOURS TOPIC 06/14/17 15:30 07/14/17 15:29 07/04/17 21:02 Dextrose (Dextrose 50%) 25 ml STAT PRN IV Hypoglycemia 06/20/17 12:15 07/20/17 12:14 Dextrose (Dextrose 50%) 50 ml STAT PRN IV Hypoglycemia 06/20/17 12:00 07/20/17 11:59 Heparin Sodium (Porcine) (Heparin 5000 units/ml) 5,000 units EVERY 12 HOURS SUBQ 06/20/17 10:30 07/20/17 10:29 07/04/17 21:00 Insulin Aspart (NovoLOG) BEFORE MEALS AND HS SUBQ 06/20/17 12:45 07/20/17 12:44 07/04/17 20:56 Insulin Aspart (NovoLOG) 4 units NOVOTIAC SUBQ 06/12/17 11:50 07/09/17 11:49 07/04/17 16:41 Sodium Hypochlorite (Dakin's Quarter Strength) 1 applic DAILY TOPIC 06/28/17 09:00 07/28/17 08:59 07/04/17 09:05 Kyra Massey MD Jul 04, 2017 21:42
[2017-07-05] VITALS: BP 139/75
[2017-07-05 04:00] VITALS: BP 135/88
[2017-07-05] MEDS: NovoLOG Insulin Flexpen SUBQ SCH ×7 (05:56→21:41)
[2017-07-05 08:00] VITALS: BP 113/65
[2017-07-05] MEDS: Dakin's 0.125% Soln (Quarter Strength) 16oz TOPIC SCH (09:00)
[2017-07-05] MEDS: Heparin 5000 units/ml inj SUBQ SCH ×2 (10:37→21:41)
--- NOTE | 2017-07-05 10:54 | Infectious Diseases Prog Note ---
Assessment/Plan Assessment/Plan The patient is a 66-year-old male with Right foot cellulitis. right big toe. osteo , s/p Rx -MRI R foot: Findings suspicious for osteomyelitis of the distal aspect of the first distal phalanx -wound cx E.fecalis ([place] S), CoNS (likely represents colonizers) Fever, SP Normal white blood cells Influenza screening tests : Neg RP : 2.4 => 07/02 : 0.4 06/28 ESR : 74 => 07/02 : 31 Diabetes. Hyperlipidemia. Hypertension. Left BKA. History of alcohol abuse and smoking until recently. 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 PLAN: monitor pt off of IV AB Rx Clotrimazole topical - 07/01 SP IV vancomycin and Ceftriaxone and Flagyl ( abx d# 42/42 ) -05/24 SP Cefepime #4 Monitor CBC. Monitor BMP. dc planning to a [facility] Subjective Allergies: Coded Allergies: No Known Allergies (Unverified , 11/16/14) Subjective afebrile no leukocytosis discharge planning Objective Vital Signs Last 24 Hour Vital Signs Date Time Temp Pulse Resp B/P (MAP) Pulse Ox O2 Delivery O2 Flow Rate FiO2 07/05/17 08:00 98.2 71 20 113/65 100 Room Air 98.2 07/05/17 04:00 97.9 75 18 135/88 98 Room Air 97.9 07/05/17 00:00 Room Air 07/05/17 00:00 97.9 69 20 139/75 96 Room Air 97.9 07/04/17 20:00 97.7 73 19 143/84 97 Room Air 97.7 07/04/17 20:00 Room Air 07/04/17 16:00 97.8 78 18 152/83 98 Room Air 97.8 Height (Feet): 5 Height (Inches): 7.00 Weight (Pounds): 180 Objective General Appearance: WD/WN HEENT: normocephalic, atraumatic Respiratory/Chest: chest wall non-tender, lungs clear Breasts: no masses Cardiovascular: normal peripheral pulses, regular rhythm Abdomen: normal bowel sounds, soft, non tender Genitourinary: normal external genitalia Extremities: no cyanosis, aka Skin: extensive keratic lesions on leg Current Medications Medications (Trade) Dose Ordered Sig/Caden Route PRN Reason Start Time Stop Time Status Last Admin Dose Admin Clotrimazole (Lotrimin) 1 applic EVERY 12 HOURS TOPIC 06/14/17 15:30 07/14/17 15:29 07/05/17 10:32 Dextrose (Dextrose 50%) 25 ml STAT PRN IV Hypoglycemia 06/20/17 12:15 07/20/17 12:14 Dextrose (Dextrose 50%) 50 ml STAT PRN IV Hypoglycemia 06/20/17 12:00 07/20/17 11:59 Heparin Sodium (Porcine) (Heparin 5000 units/ml) 5,000 units EVERY 12 HOURS SUBQ 06/20/17 10:30 07/20/17 10:29 07/05/17 10:37 Insulin Aspart (NovoLOG) BEFORE MEALS AND HS SUBQ 06/20/17 12:45 07/20/17 12:44 07/05/17 05:56 Insulin Aspart (NovoLOG) 4 units NOVOTIAC SUBQ 06/12/17 11:50 07/09/17 11:49 07/05/17 05:58 Sodium Hypochlorite (Dakin's Quarter Strength) 1 applic DAILY TOPIC 06/28/17 09:00 07/28/17 08:59 07/04/17 09:05 Dena Frank M.D. Jul 05, 2017 10:54
[2017-07-05 12:00] VITALS: BP 110/70
--- NOTE | 2017-07-05 14:26 | Pulmonology Progress Note ---
Assessment/Plan Problems: (1) Osteomyelitis of ankle or foot, acute (2) Cellulitis of right lower extremity (3) Ulcer of heel and midfoot (4) ETOH abuse (5) HTN (hypertension) (6) Diabetes (7) Anemia (8) S/P BKA (below knee amputation) Assessment/Plan all reviewed no new events skin getting much better pt/ot reordered eating better, \ Subjective ROS Limited/Unobtainable: No Allergies: Coded Allergies: No Known Allergies (Unverified , 11/16/14) Objective Last 24 Hour Vital Signs Date Time Temp Pulse Resp B/P (MAP) Pulse Ox O2 Delivery O2 Flow Rate FiO2 07/05/17 12:00 97.4 70 30 110/70 99 Room Air 97.4 07/05/17 08:00 98.2 71 20 113/65 100 Room Air 98.2 07/05/17 04:00 97.9 75 18 135/88 98 Room Air 97.9 07/05/17 00:00 Room Air 07/05/17 00:00 97.9 69 20 139/75 96 Room Air 97.9 07/04/17 20:00 97.7 73 19 143/84 97 Room Air 97.7 07/04/17 20:00 Room Air 07/04/17 16:00 97.8 78 18 152/83 98 Room Air 97.8 Intake and Output 07/04/17 07/05/17 19:00 07:00 Intake Total 480 ml 60 ml Output Total 900 ml 300 ml Balance -420 ml -240 ml Intake Oral 480 ml 60 ml Output Urine Total 900 ml 300 ml # Voids 4 Objective General Appearance: WD/WN HEENT: normocephalic, atraumatic Respiratory/Chest: chest wall non-tender, lungs clear Breasts: no masses Cardiovascular: normal peripheral pulses, regular rhythm Abdomen: normal bowel sounds, soft, non tender Genitourinary: normal external genitalia Extremities: no cyanosis, aka Skin: extensive keratic lesions on leg Current Medications Medications (Trade) Dose Ordered Sig/Caden Route PRN Reason Start Time Stop Time Status Last Admin Dose Admin Clotrimazole (Lotrimin) 1 applic EVERY 12 HOURS TOPIC 06/14/17 15:30 07/14/17 15:29 07/05/17 10:32 Dextrose (Dextrose 50%) 25 ml STAT PRN IV Hypoglycemia 06/20/17 12:15 07/20/17 12:14 Dextrose (Dextrose 50%) 50 ml STAT PRN IV Hypoglycemia 06/20/17 12:00 07/20/17 11:59 Heparin Sodium (Porcine) (Heparin 5000 units/ml) 5,000 units EVERY 12 HOURS SUBQ 06/20/17 10:30 07/20/17 10:29 07/05/17 10:37 Insulin Aspart (NovoLOG) BEFORE MEALS AND HS SUBQ 06/20/17 12:45 07/20/17 12:44 07/05/17 11:57 Insulin Aspart (NovoLOG) 4 units NOVOTIAC SUBQ 06/12/17 11:50 07/09/17 11:49 07/05/17 11:57 Sodium Hypochlorite (Dakin's Quarter Strength) 1 applic DAILY TOPIC 06/28/17 09:00 07/28/17 08:59 07/04/17 09:05 Kyra Massey MD Jul 05, 2017 14:26
[2017-07-05 16:00] VITALS: BP_SYST 126; BP_SYST 131; BP_DIAS 60; BP_DIAS 83
[2017-07-05 20:00] VITALS: BP 114/63
[2017-07-06] VITALS (7 sets, daily range): BP systolic 92–147; BP diastolic 56–85
[2017-07-06] MEDS: NovoLOG Insulin Flexpen SUBQ SCH ×7 (06:35→21:39)
[2017-07-06 07:30] LABS: BASOPHILS % (AUTO) 1.1 % (0.0-2.0); EOSINOPHILS % (AUTO) 5.1 % (0.0-3.0); HEMATOCRIT 38.4 % (42.0-52.0); HEMOGLOBIN 13.2 G/DL (14.2-18.0); LYMPHOCYTES % (AUTO) 40.2 % (20.0-45.0); MEAN CORPUSCULAR VOLUME 84 FL (80-99); NEUTROPHILS % (AUTO) 46.6 % (45.0-75.0); PLATELET COUNT 218 K/UL (150-450); RED BLOOD COUNT 4.56 M/UL (4.70-6.10); RED CELL DISTRIBUTION WIDTH 11.8 % (11.6-14.8); WHITE BLOOD COUNT 5.5 K/UL (4.8-10.8)
[2017-07-06 07:53] LABS: ALANINE AMINOTRANSFERASE 26 U/L (12-78); ALBUMIN/GLOBULIN RATIO 0.7 (1.0-2.7); ALKALINE PHOSPHATASE 47 U/L (46-116); ANION GAP 9 mmol/L (5-15); ASPARTATE AMINO TRANSFERASE 28 U/L (15-37); BILIRUBIN,TOTAL 0.3 MG/DL (0.2-1.0); BLOOD UREA NITROGEN 19 mg/dL (7-18); CALCIUM 9.2 MG/DL (8.5-10.1); CARBON DIOXIDE 29 MMOL/L (21-32); CHLORIDE 99 MMOL/L (98-107); PHOSPHORUS 4.2 MG/DL (2.5-4.9); POTASSIUM 3.9 MMOL/L (3.5-5.1); SODIUM 137 MMOL/L (136-145)
[2017-07-06] MEDS: Dakin's 0.125% Soln (Quarter Strength) 16oz TOPIC SCH (09:25)
[2017-07-06] MEDS: Heparin 5000 units/ml inj SUBQ SCH ×2 (09:27→21:38)
--- NOTE | 2017-07-06 12:35 | Infectious Diseases Prog Note ---
Assessment/Plan Assessment/Plan The patient is a 66-year-old male with Right foot cellulitis. right big toe. osteo , s/p Rx -MRI R foot: Findings suspicious for osteomyelitis of the distal aspect of the first distal phalanx -wound cx E.fecalis ([place] S), CoNS (likely represents colonizers) Fever, SP Normal white blood cells Influenza screening tests : Neg RP : 2.4 => 07/02 : 0.4 06/28 ESR : 74 => 07/02 : 31 Diabetes. Hyperlipidemia. Hypertension. Left BKA. History of alcohol abuse and smoking until recently. 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 PLAN: monitor pt off of IV AB Rx Clotrimazole topical - 07/01 SP IV vancomycin and Ceftriaxone and Flagyl ( abx d# 42/42 ) -05/24 SP Cefepime #4 Monitor CBC. Monitor BMP. dc planning to a retirement Subjective Allergies: Coded Allergies: No Known Allergies (Unverified , 11/16/14) Subjective afebrile no leukocytosis discharge planning Objective Vital Signs Last 24 Hour Vital Signs Date Time Temp Pulse Resp B/P (MAP) Pulse Ox O2 Delivery O2 Flow Rate FiO2 07/06/17 08:00 98.1 95 16 118/69 92 98.1 07/06/17 04:38 Room Air 07/06/17 04:00 97.7 78 16 120/65 98 97.7 07/06/17 01:20 Room Air 07/06/17 00:00 97.5 70 15 118/63 96 97.5 07/05/17 20:00 Room Air 07/05/17 20:00 97.3 79 15 114/63 97 97.3 07/05/17 16:00 84 126/83 07/05/17 16:00 98.2 70 20 131/60 98 Room Air 98.2 Height (Feet): 5 Height (Inches): 7.00 Weight (Pounds): 180 Objective General Appearance: WD/WN HEENT: normocephalic, atraumatic Respiratory/Chest: chest wall non-tender, lungs clear Breasts: no masses Cardiovascular: normal peripheral pulses, regular rhythm Abdomen: normal bowel sounds, soft, non tender Genitourinary: normal external genitalia Extremities: no cyanosis, aka Skin: extensive keratic lesions on leg Laboratory Tests Test 07/06/17 05:10 White Blood Count 5.5 K/UL (4.8-10.8) Red Blood Count 4.56 M/UL (4.70-6.10) L Hemoglobin 13.2 G/DL (14.2-18.0) L Hematocrit 38.4 % (42.0-52.0) L Mean Corpuscular Volume 84 FL (80-99) Mean Corpuscular Hemoglobin 29.0 PG (27.0-31.0) Mean Corpuscular Hemoglobin Concent 34.4 G/DL (32.0-36.0) Red Cell Distribution Width 11.8 % (11.6-14.8) Platelet Count 218 K/UL (150-450) Mean Platelet Volume 9.5 FL (6.5-10.1) Neutrophils (%) (Auto) 46.6 % (45.0-75.0) Lymphocytes (%) (Auto) 40.2 % (20.0-45.0) Monocytes (%) (Auto) 7.0 % (1.0-10.0) Eosinophils (%) (Auto) 5.1 % (0.0-3.0) H Basophils (%) (Auto) 1.1 % (0.0-2.0) Erythrocyte Sedimentation Rate 78 MM/HR (0-20) H Sodium Level 137 MMOL/L (136-145) Potassium Level 3.9 MMOL/L (3.5-5.1) Chloride Level 99 MMOL/L (98-107) Carbon Dioxide Level 29 MMOL/L (21-32) Anion Gap 9 mmol/L (5-15) Blood Urea Nitrogen 19 mg/dL (7-18) H Creatinine 1.0 MG/DL (0.55-1.30) Estimat Glomerular Filtration Rate > 60 mL/min (>60) Glucose Level 177 MG/DL (74-106) H Calcium Level 9.2 MG/DL (8.5-10.1) Phosphorus Level 4.2 MG/DL (2.5-4.9) Magnesium Level 1.8 MG/DL (1.8-2.4) Total Bilirubin 0.3 MG/DL (0.2-1.0) Aspartate Amino Transf (AST/SGOT) 28 U/L (15-37) Alanine Aminotransferase (ALT/SGPT) 26 U/L (12-78) Alkaline Phosphatase 47 U/L (46-116) C-Reactive Protein, Quantitative < 0.4 mg/dL (0.00-0.90) Total Protein 7.5 G/DL (6.4-8.2) Albumin 3.0 G/DL (3.4-5.0) L Globulin 4.5 g/dL Albumin/Globulin Ratio 0.7 (1.0-2.7) L Current Medications Medications (Trade) Dose Ordered Sig/Caden Route PRN Reason Start Time Stop Time Status Last Admin Dose Admin Clotrimazole (Lotrimin) 1 applic EVERY 12 HOURS TOPIC 06/14/17 15:30 07/14/17 15:29 07/06/17 09:26 Dextrose (Dextrose 50%) 25 ml STAT PRN IV Hypoglycemia 06/20/17 12:15 07/20/17 12:14 Dextrose (Dextrose 50%) 50 ml STAT PRN IV Hypoglycemia 06/20/17 12:00 07/20/17 11:59 Heparin Sodium (Porcine) (Heparin 5000 units/ml) 5,000 units EVERY 12 HOURS SUBQ 06/20/17 10:30 07/20/17 10:29 07/06/17 09:27 Insulin Aspart (NovoLOG) BEFORE MEALS AND HS SUBQ 06/20/17 12:45 07/20/17 12:44 07/06/17 11:46 Insulin Aspart (NovoLOG) 4 units NOVOTIAC SUBQ 06/12/17 11:50 07/09/17 11:49 07/06/17 11:47 Sodium Hypochlorite (Dakin's Quarter Strength) 1 applic DAILY TOPIC 06/28/17 09:00 07/28/17 08:59 07/06/17 09:25 Dena Frank M.D. Jul 06, 2017 12:35
--- NOTE | 2017-07-06 14:46 | Pulmonology Progress Note ---
Assessment/Plan Problems: (1) Osteomyelitis of ankle or foot, acute (2) Cellulitis of right lower extremity (3) Ulcer of heel and midfoot (4) ETOH abuse (5) HTN (hypertension) (6) Diabetes (7) Anemia (8) S/P BKA (below knee amputation) Assessment/Plan all reviewed no new events skin getting much better pt/ot reordered eating better, dc planning in process \ Subjective ROS Limited/Unobtainable: No Constitutional: Reports: no symptoms HEENT: Repors: no symptoms Respiratory: Reports: no symptoms Allergies: Coded Allergies: No Known Allergies (Unverified , 11/16/14) Objective Last 24 Hour Vital Signs Date Time Temp Pulse Resp B/P (MAP) Pulse Ox O2 Delivery O2 Flow Rate FiO2 07/06/17 12:00 98.2 76 14 147/83 97 98.2 07/06/17 08:00 98.1 95 16 118/69 92 98.1 07/06/17 04:38 Room Air 07/06/17 04:00 97.7 78 16 120/65 98 97.7 07/06/17 01:20 Room Air 07/06/17 00:00 97.5 70 15 118/63 96 97.5 07/05/17 20:00 Room Air 07/05/17 20:00 97.3 79 15 114/63 97 97.3 07/05/17 16:00 84 126/83 07/05/17 16:00 98.2 70 20 131/60 98 Room Air 98.2 Intake and Output 07/05/17 07/06/17 19:00 07:00 Intake Total 360 ml Output Total 300 ml 500 ml Balance 60 ml -500 ml Intake Oral 360 ml Output Urine Total 300 ml 500 ml Objective General Appearance: WD/WN HEENT: normocephalic, atraumatic Respiratory/Chest: chest wall non-tender, lungs clear Breasts: no masses Cardiovascular: normal peripheral pulses, regular rhythm Abdomen: normal bowel sounds, soft, non tender Genitourinary: normal external genitalia Extremities: no cyanosis, aka Skin: extensive keratic lesions on leg Laboratory Tests 07/06/17 05:10: White Blood Count 5.5, Red Blood Count 4.56L, Hemoglobin 13.2L, Hematocrit 38.4L , Mean Corpuscular Volume 84, Mean Corpuscular Hemoglobin 29.0, Mean Corpuscular Hemoglobin Concent 34.4, Red Cell Distribution Width 11.8, Platelet Count 218, Mean Platelet Volume 9.5, Neutrophils (%) (Auto) 46.6, Lymphocytes (% ) (Auto) 40.2, Monocytes (%) (Auto) 7.0, Eosinophils (%) (Auto) 5.1H, Basophils (%) (Auto) 1.1, Erythrocyte Sedimentation Rate 78H, Sodium Level 137, Potassium Level 3.9, Chloride Level 99, Carbon Dioxide Level 29, Anion Gap 9, Blood Urea Nitrogen 19H, Creatinine 1.0, Estimat Glomerular Filtration Rate > 60, Glucose Level 177H, Calcium Level 9.2, Phosphorus Level 4.2, Magnesium Level 1.8, Total Bilirubin 0.3, Aspartate Amino Transf (AST/SGOT) 28, Alanine Aminotransferase ( ALT/SGPT) 26, Alkaline Phosphatase 47, C-Reactive Protein, Quantitative < 0.4, Total Protein 7.5, Albumin 3.0L, Globulin 4.5, Albumin/Globulin Ratio 0.7L Current Medications Medications (Trade) Dose Ordered Sig/Caden Route PRN Reason Start Time Stop Time Status Last Admin Dose Admin Clotrimazole (Lotrimin) 1 applic EVERY 12 HOURS TOPIC 06/14/17 15:30 07/14/17 15:29 07/06/17 09:26 Dextrose (Dextrose 50%) 25 ml STAT PRN IV Hypoglycemia 06/20/17 12:15 07/20/17 12:14 Dextrose (Dextrose 50%) 50 ml STAT PRN IV Hypoglycemia 06/20/17 12:00 07/20/17 11:59 Heparin Sodium (Porcine) (Heparin 5000 units/ml) 5,000 units EVERY 12 HOURS SUBQ 06/20/17 10:30 07/20/17 10:29 07/06/17 09:27 Insulin Aspart (NovoLOG) BEFORE MEALS AND HS SUBQ 06/20/17 12:45 07/20/17 12:44 07/06/17 11:46 Insulin Aspart (NovoLOG) 4 units NOVOTIAC SUBQ 06/12/17 11:50 07/09/17 11:49 07/06/17 11:47 Sodium Hypochlorite (Dakin's Quarter Strength) 1 applic DAILY TOPIC 06/28/17 09:00 07/28/17 08:59 4/24/18 09:25 Kyra Massey MD Jul 06, 2017 14:46
[2017-07-07 04:00] VITALS: BP 121/71
[2017-07-07] MEDS: NovoLOG Insulin Flexpen SUBQ SCH ×7 (05:59→21:55)
[2017-07-07 08:00] VITALS: BP 108/82
[2017-07-07] MEDS: Dakin's 0.125% Soln (Quarter Strength) 16oz TOPIC SCH (09:15)
[2017-07-07] MEDS: Heparin 5000 units/ml inj SUBQ SCH ×2 (09:22→21:00)
--- NOTE | 2017-07-07 11:24 | Infectious Diseases Prog Note ---
Assessment/Plan Assessment/Plan The patient is a 66-year-old male with Emesis-?GIB Low grade fever- possibly reactive to above- r/o aspiration pneumonitis vs PNA Right foot cellulitis. right big toe. osteo , s/p Rx -MRI R foot: Findings suspicious for osteomyelitis of the distal aspect of the first distal phalanx -wound cx E.fecalis ([place] S), CoNS (likely represents colonizers) Fever, SP Normal white blood cells Influenza screening tests : Neg RP : 2.4 => 07/02 : 0.4 06/28 ESR : 74 => 07/02 : 31 Diabetes. Hyperlipidemia. Hypertension. Left BKA. History of alcohol abuse and smoking until recently. 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 PLAN: monitor pt off of IV AB Rx unless persistently febrile, new infiltrates in CXR and/or worsenign leukocytosis Clotrimazole topical CXR If T>101, obtain 2 sets of Bcx - 07/01 SP IV vancomycin and Ceftriaxone and Flagyl ( abx d# 42/42 ) -05/24 SP Cefepime #4 Monitor CBC. Monitor BMP. CBC, CMP am GI eval Subjective Allergies: Coded Allergies: No Known Allergies (Unverified , 11/16/14) Subjective low grade fever, Tm 100.8 report of emesis of blackish color x2 no leukocytosis cbc yesterday aqt RA Objective Vital Signs Last 24 Hour Vital Signs Date Time Temp Pulse Resp B/P (MAP) Pulse Ox O2 Delivery O2 Flow Rate FiO2 07/07/17 08:00 Room Air 07/07/17 08:00 98.7 92 15 108/82 97 98.7 07/07/17 04:00 97.9 92 18 121/71 93 97.9 07/06/17 23:51 98.4 100 18 92/56 94 98.4 07/06/17 20:18 98.6 Room Air 98.6 07/06/17 20:00 100.8 104 18 142/85 94 100.8 07/06/17 16:00 97.5 77 19 120/77 98 97.5 07/06/17 16:00 Room Air 07/06/17 12:00 98.2 76 14 147/83 97 98.2 07/06/17 12:00 Room Air Height (Feet): 5 Height (Inches): 7.00 Weight (Pounds): 180 Objective General Appearance: WD/WN HEENT: normocephalic, atraumatic Respiratory/Chest: chest wall non-tender, lungs clear Breasts: no masses Cardiovascular: normal peripheral pulses, regular rhythm Abdomen: normal bowel sounds, soft, non tender Genitourinary: normal external genitalia Extremities: no cyanosis, aka Skin: extensive keratic lesions on leg Current Medications Medications (Trade) Dose Ordered Sig/Caden Route PRN Reason Start Time Stop Time Status Last Admin Dose Admin Clotrimazole (Lotrimin) 1 applic EVERY 12 HOURS TOPIC 06/14/17 15:30 07/14/17 15:29 07/07/17 09:14 Dextrose (Dextrose 50%) 25 ml STAT PRN IV Hypoglycemia 06/20/17 12:15 07/20/17 12:14 Dextrose (Dextrose 50%) 50 ml STAT PRN IV Hypoglycemia 06/20/17 12:00 07/20/17 11:59 Heparin Sodium (Porcine) (Heparin 5000 units/ml) 5,000 units EVERY 12 HOURS SUBQ 06/20/17 10:30 07/20/17 10:29 07/07/17 09:22 Insulin Aspart (NovoLOG) BEFORE MEALS AND HS SUBQ 06/20/17 12:45 07/20/17 12:44 07/07/17 05:59 Insulin Aspart (NovoLOG) 4 units NOVOTIAC SUBQ 06/12/17 11:50 07/09/17 11:49 07/07/17 06:00 Ondansetron HCl (Zofran) 4 mg Q4H PRN IVP Nausea & Vomiting 07/07/17 08:00 08/06/17 07:59 07/07/17 09:15 Sodium Hypochlorite (Dakin's Quarter Strength) 1 applic DAILY TOPIC 06/28/17 09:00 07/28/17 08:59 07/07/17 09:15 Dena Frank M.D. Jul 07, 2017 11:24
[2017-07-07 12:00] VITALS: BP 141/80
--- NOTE | 2017-07-07 13:12 | GI Initial Consult Note ---
Carol Ontiveros NVega 07/07/17 1312: History of Present Illness General Date patient seen: Jul 07, 2017 Time patient seen: 15:16 Reason for Hospitalization: Pain Referring physician: TYESHA TALAVERA Reason for Consultation: MELENA Present Illness HPI 66 yo male patient presents to ER BIB ambulance complaining of foot cellulitis. Patient is a poor historian. Paramedics reports patient has possible cellulitis and necrosis of right foot. Reports patient has a hx of poorly controlled diabetes and ETOH abuse. Reports history of left foot amputation. Nichole fever, chest pain, SOB. Patient has previously been seen in ER for treatment of cellulitis of right foot. GI consulted for reports of melena. Pt seen, awake A&Ox4 NAD c/o of coffee grounds and melena. Stable Hgb. Unknown history of endoscopy / colonoscopy. Home Meds Reported Medications No Known Medications* (NKM - No Known Medications*) ., 0 ., 0 Refills 12/07/16 Med list reviewed/reconciled: Yes Allergies: Coded Allergies: No Known Allergies (Unverified , 11/16/14) Patient History History Provided By: Medical Record PMH Narrative Past Medical History: see triage record Reviewed Nursing Documentation: PMH: Agreed; PSxH: Agreed Nursing Documentation-PMH Past Medical History: No History, Except For Hx Cardiac Problems: No Hx Hypertension: Yes Hx Diabetes: Yes Hx Cancer: No Hx Gastrointestinal Problems: No Hx Neurological Problems: No Hx Cerebrovascular Accident: No - ETOH ABUSE Hx Fatigue: Yes Social History: Reports: other - see HPI Review of Systems All Other Systems: negative except mentioned in HPI Physical Exam Vital Signs Date Time Temp Pulse Resp B/P (MAP) Pulse Ox O2 Delivery O2 Flow Rate FiO2 07/03/17 08:00 97.3 78 18 110/69 94 97.3 07/03/17 20:00 Room Air Sp02 EP Interpretation: reviewed, normal General Appearance: no apparent distress, thin Head: normocephalic EENT: PERRL/EOMI, normal ENT inspection Neck: supple Respiratory: normal breath sounds, no respiratory distress Cardiovascular: normal rate Gastrointestinal: normal inspection, non tender, soft, normal bowel sounds, non -distended Rectal: deferred Genitourinary: deferred Musculoskeletal: normal inspection, back normal Neurologic: alert, oriented x3, responsive Psychiatric: judgement/insight normal Skin: normal inspection, normal color, no rash, warm/dry, palpation normal, well hydrated Lymphatic: normal inspection, no adenopathy Current Medications Current Medications Medications (Trade) Dose Ordered Sig/Caden Route PRN Reason Start Time Stop Time Status Last Admin Dose Admin Clotrimazole (Lotrimin) 1 applic EVERY 12 HOURS TOPIC 06/14/17 15:30 07/14/17 15:29 07/07/17 09:14 Dextrose (Dextrose 50%) 25 ml STAT PRN IV Hypoglycemia 06/20/17 12:15 07/20/17 12:14 Dextrose (Dextrose 50%) 50 ml STAT PRN IV Hypoglycemia 06/20/17 12:00 07/20/17 11:59 Heparin Sodium (Porcine) (Heparin 5000 units/ml) 5,000 units EVERY 12 HOURS SUBQ 06/20/17 10:30 07/20/17 10:29 07/07/17 09:22 Insulin Aspart (NovoLOG) BEFORE MEALS AND HS SUBQ 06/20/17 12:45 07/20/17 12:44 07/07/17 11:28 Insulin Aspart (NovoLOG) 4 units NOVOTIAC SUBQ 06/12/17 11:50 07/09/17 11:49 07/07/17 11:26 Ondansetron HCl (Zofran) 4 mg Q4H PRN IVP Nausea & Vomiting 07/07/17 08:00 08/06/17 07:59 07/07/17 09:15 Sodium Hypochlorite (Dakin's Quarter Strength) 1 applic DAILY TOPIC 06/28/17 09:00 07/28/17 08:59 07/07/17 09:15 GI: Plan Problems: (1) Anemia (2) Failure to thrive (3) GERD (gastroesophageal reflux disease) (4) ETOH abuse Plan EGD scheduled tomorrow. - CLD now, NPO @ [place]. hold all blood thinners send OB stool ppi BID prn transfusions fu labs Discussed with Dr. Woodall. Thank you for this patient referral, we will follow. FELIPA WOODALL 07/13/17 0650: History of Present Illness General Reason for Hospitalization: Pain Present Illness Home Meds Reported Medications No Known Medications* (NKM - No Known Medications*) ., 0 ., 0 Refills 12/07/16 Allergies: Coded Allergies: No Known Allergies (Unverified , 11/16/14) GI: Plan Plan The patient was seen and examined at bedside and all new and available data was reviewed in the patients chart. I agree with the above findings, impression and plan. (Patient seen earlier today. Signature stamp does not reflect patient encounter time.). - [facility] Wilbert Baker Jul 07, 2017 13:12 FELIPA WOODALL July 13, 2017 06:50
--- NOTE | 2017-07-07 15:34 | Pulmonology Progress Note ---
Assessment/Plan Problems: (1) Osteomyelitis of ankle or foot, acute (2) Cellulitis of right lower extremity (3) Ulcer of heel and midfoot (4) ETOH abuse (5) HTN (hypertension) (6) Diabetes (7) Anemia (8) S/P BKA (below knee amputation) Assessment/Plan all reviewed no new events skin getting much better pt/ot reordered eating better, dc planning in process \ Subjective ROS Limited/Unobtainable: No Constitutional: Reports: no symptoms Allergies: Coded Allergies: No Known Allergies (Unverified , 11/16/14) Objective Last 24 Hour Vital Signs Date Time Temp Pulse Resp B/P (MAP) Pulse Ox O2 Delivery O2 Flow Rate FiO2 07/07/17 12:00 97.0 93 15 141/80 97 97.0 07/07/17 08:00 Room Air 07/07/17 08:00 98.7 92 15 108/82 97 98.7 07/07/17 04:00 97.9 92 18 121/71 93 97.9 07/06/17 23:51 98.4 100 18 92/56 94 98.4 07/06/17 20:18 98.6 Room Air 98.6 07/06/17 20:00 100.8 104 18 142/85 94 100.8 07/06/17 16:00 97.5 77 19 120/77 98 97.5 07/06/17 16:00 Room Air Intake and Output 07/06/17 07/07/17 19:00 07:00 Intake Total 480 ml 280 ml Output Total 900 ml Balance 480 ml -620 ml Intake Oral 480 ml 280 ml Output Urine Total 900 ml # Bowel Movements 2 Objective General Appearance: WD/WN HEENT: normocephalic, atraumatic Respiratory/Chest: chest wall non-tender, lungs clear Breasts: no masses Cardiovascular: normal peripheral pulses, regular rhythm Abdomen: normal bowel sounds, soft, non tender Genitourinary: normal external genitalia Extremities: no cyanosis, aka Skin: extensive keratic lesions on leg Current Medications Medications (Trade) Dose Ordered Sig/Caden Route PRN Reason Start Time Stop Time Status Last Admin Dose Admin Clotrimazole (Lotrimin) 1 applic EVERY 12 HOURS TOPIC 06/14/17 15:30 07/14/17 15:29 07/07/17 09:14 Dextrose (Dextrose 50%) 25 ml STAT PRN IV Hypoglycemia 06/20/17 12:15 07/20/17 12:14 Dextrose (Dextrose 50%) 50 ml STAT PRN IV Hypoglycemia 06/20/17 12:00 07/20/17 11:59 Heparin Sodium (Porcine) (Heparin 5000 units/ml) 5,000 units EVERY 12 HOURS SUBQ 06/20/17 10:30 07/20/17 10:29 07/07/17 09:22 Insulin Aspart (NovoLOG) BEFORE MEALS AND HS SUBQ 06/20/17 12:45 07/20/17 12:44 07/07/17 11:28 Insulin Aspart (NovoLOG) 4 units NOVOTIAC SUBQ 06/12/17 11:50 07/09/17 11:49 07/07/17 11:26 Ondansetron HCl (Zofran) 4 mg Q4H PRN IVP Nausea & Vomiting 07/07/17 08:00 08/06/17 07:59 07/07/17 09:15 Sodium Hypochlorite (Dakin's Quarter Strength) 1 applic DAILY TOPIC 06/28/17 09:00 07/28/17 08:59 07/07/17 09:15 Kyra Massey MD Jul 07, 2017 15:34
[2017-07-07 16:00] VITALS: BP 92/59
--- NOTE | 2017-07-07 17:02 | Diagnostic Imaging Report ---
Indication: Reason For Exam: VOMITING Technique: One view of the chest Comparison: 05/31/2017 Findings: Heart size and mediastinal contours are within normal limits and stable compared to the prior exam. There is no focal airspace consolidation, pleural effusion or pneumothorax. No acute osseous abnormality identified. IMPRESSION: No radiographic evidence of acute cardiopulmonary disease.
[2017-07-07 20:00] VITALS: BP 113/73
[2017-07-08] VITALS (10 sets, daily range): BP systolic 100–139; BP diastolic 64–76
[2017-07-08] MEDS: NovoLOG Insulin Flexpen SUBQ SCH ×7 (06:01→21:38)
[2017-07-08 07:19] LABS: BASOPHILS % (AUTO) 0.8 % (0.0-2.0); EOSINOPHILS % (AUTO) 2.4 % (0.0-3.0); HEMATOCRIT 34.8 % (42.0-52.0); HEMOGLOBIN 11.8 G/DL (14.2-18.0); LYMPHOCYTES % (AUTO) 27.7 % (20.0-45.0); MEAN CORPUSCULAR VOLUME 85 FL (80-99); MONOCYTES % (AUTO) 8.9 % (1.0-10.0); NEUTROPHILS % (AUTO) 60.3 % (45.0-75.0); PLATELET COUNT 205 K/UL (150-450); RED BLOOD COUNT 4.09 M/UL (4.70-6.10); RED CELL DISTRIBUTION WIDTH 11.8 % (11.6-14.8); WHITE BLOOD COUNT 9.6 K/UL (4.8-10.8)
[2017-07-08 07:39] LABS: INR 0.9 (0.9-1.1)
[2017-07-08 08:01] LABS: ALANINE AMINOTRANSFERASE 23 U/L (12-78); ALBUMIN 2.6 G/DL (3.4-5.0); ALBUMIN/GLOBULIN RATIO 0.6 (1.0-2.7); ALKALINE PHOSPHATASE 50 U/L (46-116); ANION GAP 9 mmol/L (5-15); ASPARTATE AMINO TRANSFERASE 17 U/L (15-37); BILIRUBIN,TOTAL 0.2 MG/DL (0.2-1.0); BLOOD UREA NITROGEN 39 mg/dL (7-18); CALCIUM 8.7 MG/DL (8.5-10.1); CARBON DIOXIDE 26 MMOL/L (21-32); CHLORIDE 101 MMOL/L (98-107); CREATININE 1.5 MG/DL (0.55-1.30); POTASSIUM 4.1 MMOL/L (3.5-5.1); SODIUM 136 MMOL/L (136-145)
[2017-07-08] MEDS: Heparin 5000 units/ml inj SUBQ SCH ×2 (08:43→21:39)
[2017-07-08] MEDS: Dakin's 0.125% Soln (Quarter Strength) 16oz TOPIC SCH (08:43)
--- NOTE | 2017-07-08 10:31 | Anethesia Preoperative Eval ---
Anesthesia Pre-op PMH/ROS General Date of Evaluation: Jul 08, 2017 Time of Evaluation: 10:24 Anesthesiologist: arlene ASA Score: ASA 3 Mallampati Score Class I : Soft palate, uvula, fauces, pillars visible Class II: Soft palate, uvula, fauces visible Class III: Soft palate, base of uvula visible Class IV: Only hard plate visible Mallampati Classification: Class II Surgeon: rajwinder Diagnosis: anemia Surgical Procedure: egd Anesthesia History: none Social History: smoking, alcohol use Family History: no anesthesia problems Allergies: Coded Allergies: No Known Allergies (Unverified , 11/16/14) Medications: see eMAR Past Medical History Cardiovascular: Reports: HTN, other - hypercholesterolemia Neurologic/Psychiatric: Reports: CVA Endocrine: Reports: DM HEENT: Reports: cataract (L), cataract (R) Anesthesia Pre-op Phys. Exam Physician Exam Last Vital Signs Date Time Temp Pulse Resp B/P (MAP) Pulse Ox O2 Delivery O2 Flow Rate FiO2 07/08/17 08:18 97.5 79 20 118/72 96 97.5 07/07/17 16:00 Room Air Constitutional: NAD Neurologic: CN 2-12 intact Cardiovascular: RRR Respiratory: CTA Gastrointestinal: S/NT/ND Airway Exam Mallampati Score: Class II MO: limited Neck: supple TMD: 2fb ROM: limited Teeth: missing Anesthesia Pre-op A/P Labs Hematology Test 07/08/17 05:35 White Blood Count 9.6 K/UL (4.8-10.8) Red Blood Count 4.09 M/UL (4.70-6.10) L Hemoglobin 11.8 G/DL (14.2-18.0) L Hematocrit 34.8 % (42.0-52.0) L Mean Corpuscular Volume 85 FL (80-99) Mean Corpuscular Hemoglobin 28.9 PG (27.0-31.0) Mean Corpuscular Hemoglobin Concent 33.9 G/DL (32.0-36.0) Red Cell Distribution Width 11.8 % (11.6-14.8) Platelet Count 205 K/UL (150-450) Mean Platelet Volume 10.0 FL (6.5-10.1) Neutrophils (%) (Auto) 60.3 % (45.0-75.0) Lymphocytes (%) (Auto) 27.7 % (20.0-45.0) Monocytes (%) (Auto) 8.9 % (1.0-10.0) Eosinophils (%) (Auto) 2.4 % (0.0-3.0) Basophils (%) (Auto) 0.8 % (0.0-2.0) Coagulation Test 07/08/17 05:35 Prothrombin Time 9.8 SEC (9.30-11.50) Prothromb Time International Ratio 0.9 (0.9-1.1) Activated Partial Thromboplast Time 26 SEC (23-33) Chemistry Test 07/08/17 05:35 Sodium Level 136 MMOL/L (136-145) Potassium Level 4.1 MMOL/L (3.5-5.1) Chloride Level 101 MMOL/L (98-107) Carbon Dioxide Level 26 MMOL/L (21-32) Anion Gap 9 mmol/L (5-15) Blood Urea Nitrogen 39 mg/dL (7-18) H Creatinine 1.5 MG/DL (0.55-1.30) H Estimat Glomerular Filtration Rate 46.7 mL/min (>60) Glucose Level 239 MG/DL (74-106) H Calcium Level 8.7 MG/DL (8.5-10.1) Total Bilirubin 0.2 MG/DL (0.2-1.0) Aspartate Amino Transf (AST/SGOT) 17 U/L (15-37) Alanine Aminotransferase (ALT/SGPT) 23 U/L (12-78) Alkaline Phosphatase 50 U/L (46-116) Total Protein 7.2 G/DL (6.4-8.2) Albumin 2.6 G/DL (3.4-5.0) L Globulin 4.6 g/dL Albumin/Globulin Ratio 0.6 (1.0-2.7) L Risk Assessment & Plan Assessment: asa3 Plan: mac Status Change Before Surgery: No Pre-Antibiotics Drug: ISAIAH Ortega Jul 08, 2017 10:31
[2017-07-08] MEDS ORDERED: DiphenhydrAMINE 50mg/ml Inj IVP PRN (10:45)
[2017-07-08] MEDS ORDERED: Atropine Inj 1mg/10ml Syr IV PRN (10:45)
[2017-07-08] MEDS ORDERED: fentaNYL 100 mcg/2 mL IV PRN (10:45)
[2017-07-08] MEDS ORDERED: Midazolam 2mg/2ml Inj IVP PRN (10:45)
[2017-07-08] MEDS ORDERED: NS 500ML IV ONE (11:15)
--- NOTE | 2017-07-08 11:49 | Pre-Procedure Note/Attestation ---
Pre-Procedure Note/Attestation Complete Prior to Procedure Planned Procedure: not applicable Procedure Narrative: EGD Indications for Procedure Pre-Operative Diagnosis: GIB Attestation I attest that I discussed the nature of the procedure; its benefits; risks and complications; and alternatives (and the risks and benefits of such alternatives ), prior to the procedure, with the patient (or the patient's legal customer counter representative). I attest that, if there was a reasonable possibility of needing a blood transfusion, the patient (or the patient's legal customer counter representative) was given the [facility] standardized written summary, pursuant to the Juan Analia Blood Safety Act ([place] Health and Safety Code # 1645, as amended). I attest that I re-evaluated the patient just prior to the surgery and that there has been no change in the patient's H&P, except as documented below: FELIPA WOODALL Jul 08, 2017 11:49
--- NOTE | 2017-07-08 11:49 | Infectious Diseases Prog Note ---
Assessment/Plan Assessment/Plan The patient is a 66-year-old male with Coffee ground Emesis-?GIB Low grade fever- possibly reactive to above- ; imporivng , no PNA -CXR 07/07: No radiographic evidence of acute cardiopulmonary disease. Right foot cellulitis (resolved). right big toe. osteo , s/p Rx -MRI R foot: Findings suspicious for osteomyelitis of the distal aspect of the first distal phalanx -wound cx E.fecalis ([place] S), CoNS (likely represents colonizers) Fever, SP Normal white blood cells Influenza screening tests : Neg RP : 2.4 => 07/02 : 0.4 06/28 ESR : 74 => 07/02 : 31 Diabetes. Hyperlipidemia. Hypertension. Left BKA. History of alcohol abuse and smoking until recently. 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 PLAN: monitor pt off of IV AB Rx unless persistently febrile, new infiltrates in CXR and/or worsenign leukocytosis Clotrimazole topical If T>101, obtain 2 sets of Bcx - 07/01 SP IV vancomycin and Ceftriaxone and Flagyl ( abx d# 42/42 ) -05/24 SP Cefepime #4 Monitor CBC. Monitor BMP. For EGD today Subjective Allergies: Coded Allergies: No Known Allergies (Unverified , 11/16/14) Subjective afebrile in 36hrs no leukocytosis cxr neg for EGD today Objective Vital Signs Last 24 Hour Vital Signs Date Time Temp Pulse Resp B/P (MAP) Pulse Ox O2 Delivery O2 Flow Rate FiO2 07/08/17 08:18 97.5 79 20 118/72 96 97.5 07/08/17 04:00 99.6 88 18 139/76 95 99.6 07/07/17 20:00 99.5 88 18 113/73 98 99.5 07/07/17 16:00 Room Air 07/07/17 16:00 96.6 71 19 92/59 96 96.6 07/07/17 16:00 96.6 71 20 92/59 99 96.6 07/07/17 12:00 Room Air 07/07/17 12:00 97.0 93 15 141/80 97 97.0 Height (Feet): 5 Height (Inches): 5.00 Weight (Pounds): 180 Objective General Appearance: WD/WN HEENT: normocephalic, atraumatic Respiratory/Chest: chest wall non-tender, lungs clear Breasts: no masses Cardiovascular: normal peripheral pulses, regular rhythm Abdomen: normal bowel sounds, soft, non tender Genitourinary: normal external genitalia Extremities: no cyanosis, aka Skin: extensive keratic lesions on leg Laboratory Tests Test 07/08/17 05:35 White Blood Count 9.6 K/UL (4.8-10.8) Red Blood Count 4.09 M/UL (4.70-6.10) L Hemoglobin 11.8 G/DL (14.2-18.0) L Hematocrit 34.8 % (42.0-52.0) L Mean Corpuscular Volume 85 FL (80-99) Mean Corpuscular Hemoglobin 28.9 PG (27.0-31.0) Mean Corpuscular Hemoglobin Concent 33.9 G/DL (32.0-36.0) Red Cell Distribution Width 11.8 % (11.6-14.8) Platelet Count 205 K/UL (150-450) Mean Platelet Volume 10.0 FL (6.5-10.1) Neutrophils (%) (Auto) 60.3 % (45.0-75.0) Lymphocytes (%) (Auto) 27.7 % (20.0-45.0) Monocytes (%) (Auto) 8.9 % (1.0-10.0) Eosinophils (%) (Auto) 2.4 % (0.0-3.0) Basophils (%) (Auto) 0.8 % (0.0-2.0) Prothrombin Time 9.8 SEC (9.30-11.50) Prothromb Time International Ratio 0.9 (0.9-1.1) Activated Partial Thromboplast Time 26 SEC (23-33) Sodium Level 136 MMOL/L (136-145) Potassium Level 4.1 MMOL/L (3.5-5.1) Chloride Level 101 MMOL/L (98-107) Carbon Dioxide Level 26 MMOL/L (21-32) Anion Gap 9 mmol/L (5-15) Blood Urea Nitrogen 39 mg/dL (7-18) H Creatinine 1.5 MG/DL (0.55-1.30) H Estimat Glomerular Filtration Rate 46.7 mL/min (>60) Glucose Level 239 MG/DL (74-106) H Calcium Level 8.7 MG/DL (8.5-10.1) Total Bilirubin 0.2 MG/DL (0.2-1.0) Aspartate Amino Transf (AST/SGOT) 17 U/L (15-37) Alanine Aminotransferase (ALT/SGPT) 23 U/L (12-78) Alkaline Phosphatase 50 U/L (46-116) Total Protein 7.2 G/DL (6.4-8.2) Albumin 2.6 G/DL (3.4-5.0) L Globulin 4.6 g/dL Albumin/Globulin Ratio 0.6 (1.0-2.7) L Current Medications Medications (Trade) Dose Ordered Sig/Caden Route PRN Reason Start Time Stop Time Status Last Admin Dose Admin Al Hydroxide/Mg Hydroxide (Mylanta) 15 ml Q1H PRN ORAL gi upset 07/08/17 10:45 07/08/17 16:00 Atropine Sulfate (Atropine) 0.5 mg Q5M PRN IV bpm less than 45 07/08/17 10:45 07/08/17 16:00 Clotrimazole (Lotrimin) 1 applic EVERY 12 HOURS TOPIC 06/14/17 15:30 07/14/17 15:29 07/08/17 08:43 Dextrose (Dextrose 50%) 25 ml STAT PRN IV Hypoglycemia 06/20/17 12:15 07/20/17 12:14 Dextrose (Dextrose 50%) 50 ml STAT PRN IV Hypoglycemia 06/20/17 12:00 07/20/17 11:59 Diphenhydramine HCl (Benadryl) 25 mg Q15M PRN IVP Itching 07/08/17 10:45 07/08/17 16:00 Fentanyl Citrate (Sublimaze 100 mcg/2 mL) 25 mcg Q10M PRN IV Moderate Pain (Pain Scale 4-6) 07/08/17 10:45 07/08/17 16:00 Heparin Sodium (Porcine) (Heparin 5000 units/ml) 5,000 units EVERY 12 HOURS SUBQ 06/20/17 10:30 07/20/17 10:29 07/07/17 09:22 Hydralazine HCl (Apresoline) 5 mg Q30M PRN IV SBP>160 OR___/DBP>90 OR___ 07/08/17 10:45 07/08/17 16:00 Insulin Aspart (NovoLOG) BEFORE MEALS AND HS SUBQ 06/20/17 12:45 07/20/17 12:44 07/07/17 21:55 Insulin Aspart (NovoLOG) 4 units NOVOTIAC SUBQ 06/12/17 11:50 07/09/17 11:49 07/07/17 11:26 Midazolam HCl (Versed 2mg/2ml vial) 1 mg Q15M PRN IVP For Anxiety 07/08/17 10:45 07/08/17 16:00 Ondansetron HCl (Zofran) 4 mg Q1H PRN IVP Nausea & Vomiting 07/08/17 10:45 07/08/17 16:00 Ondansetron HCl (Zofran) 4 mg Q4H PRN IVP Nausea & Vomiting 07/07/17 08:00 08/06/17 07:59 07/07/17 09:15 Sodium Hypochlorite (Dakin's Quarter Strength) 1 applic DAILY TOPIC 06/28/17 09:00 07/28/17 08:59 07/08/17 08:43 Sodium Chloride 1,000 ml @ 10 mls/hr Q24H IVLG 07/08/17 10:31 07/08/17 12:30 Dena Frank M.D. Jul 08, 2017 11:49
--- NOTE | 2017-07-08 11:59 | Endoscopy Procedure Note ---
Endoscopy Procedure Note General Indication for Procedure: gib Procedures Performed: EGD Operative Findings/Diagnosis: gastritis Specimen: yes Pt Tolerated Procedure Well: Yes Estimated Blood Loss: none Anesthesia Anesthesiologist: arlene Anesthesia: MAC Inserted Devices Implant(s) used?: No GI Core Measures 50 yrs or older w/o bx or poly: Not Applicable 10yrs. F/U not recommended: Not Applicable FELIPA WOODALL Jul 08, 2017 11:59
[2017-07-08] MEDS ORDERED: Propofol 200mg/20ml IV ONE (12:00)
[2017-07-08] MEDS ORDERED: Lidocaine 1% MPF 10mg/ml 5ml ONE (12:00)
--- NOTE | 2017-07-08 12:38 | Immediate Post-Op Evaluation ---
Immediate Post-Op Evalulation Immediate Post-Op Evalulation Procedure: egd Date of Evaluation: Jul 08, 2017 Time of Evaluation: 12:35 IV Fluids: 150ml 0.9ns Blood Products: none Estimated Blood Loss: neglgigble Blood Pressure Systolic: 101 Blood Pressure Diastolic: 65 Pulse Rate: 74 Respiratory Rate: 18 O2 Sat by Pulse Oximetry: 97 Temperature (Fahrenheit): 97.9 Pain Score (1-10): 0 Nausea: No Vomiting: No Complications none Patient Status: awake, reacts, patent Hydration Status: adequate Drug: ISAIAH Ortega Jul 08, 2017 12:38
--- NOTE | 2017-07-08 12:41 | 48 Hour Post Anesthesia Eval ---
Post Anesthesia Evaluation Procedure: egd Date of Evaluation: Jul 08, 2017 Time of Evaluation: 12:39 Blood Pressure Systolic: 100 0: 66 Pulse Rate: 75 Respiratory Rate: 18 Temperature (Fahrenheit): 97.9 O2 Sat by Pulse Oximetry: 97 Airway: other Nausea: No Vomiting: No Pain Intensity: 0 Hydration Status: adequate Cardiopulmonary Status: stable Mental Status/LOC: patient returned to baseline Post-Anesthesia Complications: none Follow-up care needed: N/A ISAIAH COURTNEY Jul 08, 2017 12:41
--- NOTE | 2017-07-08 15:14 | Pulmonology Progress Note ---
Assessment/Plan Problems: (1) Osteomyelitis of ankle or foot, acute (2) Cellulitis of right lower extremity (3) Ulcer of heel and midfoot (4) ETOH abuse (5) HTN (hypertension) (6) Diabetes (7) Anemia (8) S/P BKA (below knee amputation) Assessment/Plan all reviewed no new events skin getting much better pt/ot reordered eating better, dc planning in process \ Subjective ROS Limited/Unobtainable: No HEENT: Repors: no symptoms Respiratory: Reports: no symptoms Allergies: Coded Allergies: No Known Allergies (Unverified , 11/16/14) Objective Last 24 Hour Vital Signs Date Time Temp Pulse Resp B/P (MAP) Pulse Ox O2 Delivery O2 Flow Rate FiO2 07/08/17 13:00 68 19 110/69 96 Room Air 07/08/17 12:50 69 15 108/64 95 Room Air 07/08/17 12:41 208.2 75 18 97 07/08/17 12:40 75 18 109/68 95 Room Air 07/08/17 12:38 208.2 74 18 97 07/08/17 12:35 68 17 105/66 97 07/08/17 12:30 70 20 100/69 98 Simple Mask 6.0 07/08/17 12:22 97.9 79 18 104/65 97 97.9 07/08/17 08:18 97.5 79 20 118/72 96 97.5 07/08/17 04:00 99.6 88 18 139/76 95 99.6 07/07/17 20:00 99.5 88 18 113/73 98 99.5 07/07/17 16:00 Room Air 07/07/17 16:00 96.6 71 19 92/59 96 96.6 07/07/17 16:00 96.6 71 20 92/59 99 96.6 Intake and Output 07/07/17 07/08/17 19:00 07:00 Intake Total 240 ml Output Total 650 ml Balance 240 ml -650 ml Intake Oral 240 ml Output Urine Total 650 ml # Voids 2 # Bowel Movements 3 Objective General Appearance: WD/WN HEENT: normocephalic, atraumatic Respiratory/Chest: chest wall non-tender, lungs clear Breasts: no masses Cardiovascular: normal peripheral pulses, regular rhythm Abdomen: normal bowel sounds, soft, non tender Genitourinary: normal external genitalia Extremities: no cyanosis, aka Skin: extensive keratic lesions on leg Laboratory Tests 07/08/17 05:35: White Blood Count 9.6, Red Blood Count 4.09L, Hemoglobin 11.8L, Hematocrit 34.8L , Mean Corpuscular Volume 85, Mean Corpuscular Hemoglobin 28.9, Mean Corpuscular Hemoglobin Concent 33.9, Red Cell Distribution Width 11.8, Platelet Count 205, Mean Platelet Volume 10.0, Neutrophils (%) (Auto) 60.3, Lymphocytes ( %) (Auto) 27.7, Monocytes (%) (Auto) 8.9, Eosinophils (%) (Auto) 2.4, Basophils (%) (Auto) 0.8, Prothrombin Time 9.8, Prothromb Time International Ratio 0.9, Activated Partial Thromboplast Time 26, Sodium Level 136, Potassium Level 4.1, Chloride Level 101, Carbon Dioxide Level 26, Anion Gap 9, Blood Urea Nitrogen 39H, Creatinine 1.5H, Estimat Glomerular Filtration Rate 46.7, Glucose Level 239H, Calcium Level 8.7, Total Bilirubin 0.2, Aspartate Amino Transf (AST/SGOT) 17, Alanine Aminotransferase (ALT/SGPT) 23, Alkaline Phosphatase 50, Total Protein 7.2, Albumin 2.6L, Globulin 4.6, Albumin/Globulin Ratio 0.6L Current Medications Medications (Trade) Dose Ordered Sig/Caden Route PRN Reason Start Time Stop Time Status Last Admin Dose Admin Al Hydroxide/Mg Hydroxide (Mylanta) 15 ml Q1H PRN ORAL gi upset 07/08/17 10:45 07/08/17 16:00 Atropine Sulfate (Atropine) 0.5 mg Q5M PRN IV bpm less than 45 07/08/17 10:45 07/08/17 16:00 Clotrimazole (Lotrimin) 1 applic EVERY 12 HOURS TOPIC 06/14/17 15:30 07/14/17 15:29 07/08/17 08:43 Dextrose (Dextrose 50%) 25 ml STAT PRN IV Hypoglycemia 06/20/17 12:15 07/20/17 12:14 Dextrose (Dextrose 50%) 50 ml STAT PRN IV Hypoglycemia 06/20/17 12:00 07/20/17 11:59 Diphenhydramine HCl (Benadryl) 25 mg Q15M PRN IVP Itching 07/08/17 10:45 07/08/17 16:00 Fentanyl Citrate (Sublimaze 100 mcg/2 mL) 25 mcg Q10M PRN IV Moderate Pain (Pain Scale 4-6) 07/08/17 10:45 07/08/17 16:00 Heparin Sodium (Porcine) (Heparin 5000 units/ml) 5,000 units EVERY 12 HOURS SUBQ 06/20/17 10:30 07/20/17 10:29 07/07/17 09:22 Hydralazine HCl (Apresoline) 5 mg Q30M PRN IV SBP>160 OR___/DBP>90 OR___ 07/08/17 10:45 07/08/17 16:00 Insulin Aspart (NovoLOG) BEFORE MEALS AND HS SUBQ 06/20/17 12:45 07/20/17 12:44 07/07/17 21:55 Insulin Aspart (NovoLOG) 4 units NOVOTIAC SUBQ 06/12/17 11:50 07/09/17 11:49 07/07/17 11:26 Midazolam HCl (Versed 2mg/2ml vial) 1 mg Q15M PRN IVP For Anxiety 07/08/17 10:45 07/08/17 16:00 Ondansetron HCl (Zofran) 4 mg Q1H PRN IVP Nausea & Vomiting 07/08/17 10:45 07/08/17 16:00 Ondansetron HCl (Zofran) 4 mg Q4H PRN IVP Nausea & Vomiting 07/07/17 08:00 08/06/17 07:59 07/07/17 09:15 Sodium Hypochlorite (Dakin's Quarter Strength) 1 applic DAILY TOPIC 06/28/17 09:00 07/28/17 08:59 07/08/17 08:43 Kyra Massey MD Jul 08, 2017 15:14
--- NOTE | 2017-07-08 18:00 | Procedure Note ---
DATE OF PROCEDURE: 07/08/2017 SURGEON: Ganesh Zapata M.D. ANESTHESIOLOGIST: Dr. Dukes. PROCEDURE: Upper endoscopy with biopsy. ANESTHESIA: Per Dr. Dukes. INSTRUMENT: Olympus adult flexible upper endoscope. INDICATION: Upper GI bleeding. The procedure, risks, benefits, and possible consequences, including hemorrhage, aspiration, perforation and infection, and alternative treatments, were explained to the patient/legal guardian by Dr. Ganesh Zapata and the patient/legal guardian understood and accepted these risks. DESCRIPTION OF PROCEDURE: After informed consent was obtained and the patient was adequately sedated, Olympus upper scope was advanced from the mouth into the second portion of duodenum and retroflexion was performed in the stomach. The patient had diffuse gastritis. Random biopsy from antrum was obtained to rule out H. pylori infection. There was no evidence of any active upper GI bleeding at this time. No mass, no ulcers were seen. No evidence of any obvious significance esophagitis. At this time, the upper endoscope was retrieved and procedure was terminated. SUMMARY OF FINDINGS: Diffuse gastritis, status post biopsy, otherwise normal upper endoscopic examination. RECOMMENDATIONS: Follow up biopsy results and treat accordingly. Ganesh Zapata M.D. DR: Gill JOB#: [id number] CC:
[2017-07-09 00:22] VITALS: BP 120/72
[2017-07-09 04:23] VITALS: BP 120/67
[2017-07-09] MEDS: NovoLOG Insulin Flexpen SUBQ SCH ×5 (05:53→22:28)
[2017-07-09 08:00] VITALS: BP 117/67
[2017-07-09 08:05] LABS: BASOPHILS % (AUTO) 0.6 % (0.0-2.0); EOSINOPHILS % (AUTO) 2.4 % (0.0-3.0); HEMATOCRIT 33.4 % (42.0-52.0); HEMOGLOBIN 11.6 G/DL (14.2-18.0); LYMPHOCYTES % (AUTO) 22.7 % (20.0-45.0); MEAN CORPUSCULAR VOLUME 84 FL (80-99); MONOCYTES % (AUTO) 8.9 % (1.0-10.0); NEUTROPHILS % (AUTO) 65.4 % (45.0-75.0); PLATELET COUNT 190 K/UL (150-450); RED CELL DISTRIBUTION WIDTH 11.7 % (11.6-14.8)
[2017-07-09 08:32] LABS: ANION GAP 10 mmol/L (5-15); BLOOD UREA NITROGEN 33 mg/dL (7-18); CALCIUM 8.5 MG/DL (8.5-10.1); CARBON DIOXIDE 27 MMOL/L (21-32); CHLORIDE 101 MMOL/L (98-107); CREATININE 1.4 MG/DL (0.55-1.30); POTASSIUM 3.8 MMOL/L (3.5-5.1); SODIUM 138 MMOL/L (136-145)
[2017-07-09] MEDS: Dakin's 0.125% Soln (Quarter Strength) 16oz TOPIC SCH (08:44)
[2017-07-09] MEDS: Heparin 5000 units/ml inj SUBQ SCH ×2 (08:45→22:28)
[2017-07-09 12:00] VITALS: BP 121/66
--- NOTE | 2017-07-09 13:38 | GI Progress Note ---
Assessment/Plan Problems: (1) ETOH abuse ICD Codes: F10.10 - Alcohol abuse, uncomplicated SNOMED: 36969284 (2) Failure to thrive SNOMED: 11315449 (3) GERD (gastroesophageal reflux disease) ICD Codes: K21.9 - GERD (gastroesophageal reflux disease) SNOMED: 043879510 (4) N&V (nausea and vomiting) ICD Codes: R11.2 - N&V (nausea and vomiting) SNOMED: 42604882 Status: stable Status Narrative Discussed with Dr. Zapata. Assessment/Plan SUMMARY OF FINDINGS: Diffuse gastritis, status post biopsy, otherwise normal upper endoscopic examination. RECOMMENDATIONS: Follow up biopsy results and treat accordingly. prn transfusions ppi fu labs Subjective Gastrointestinal/Abdominal: Reports: no symptoms Objective Last 24 Hour Vital Signs Date Time Temp Pulse Resp B/P (MAP) Pulse Ox O2 Delivery O2 Flow Rate FiO2 07/09/17 12:00 98.2 68 20 121/66 95 98.2 07/09/17 08:00 97.7 80 19 117/67 96 97.7 07/09/17 04:23 98.1 74 20 120/67 95 Room Air 98.1 07/09/17 00:22 97.0 82 20 120/72 95 Room Air 97.0 07/08/17 20:17 98.4 76 20 119/66 97 Room Air 98.4 07/08/17 15:56 97.7 83 20 108/68 96 97.7 Intake and Output 07/08/17 07/09/17 19:00 07:00 Intake Total 480 ml 360 ml Output Total 1200 ml 500 ml Balance -720 ml -140 ml Intake Oral 480 ml 360 ml Output Urine Total 1200 ml 500 ml # Bowel Movements 1 1 Laboratory Tests Test 07/09/17 06:00 White Blood Count 11.0 K/UL (4.8-10.8) H Red Blood Count 4.00 M/UL (4.70-6.10) L Hemoglobin 11.6 G/DL (14.2-18.0) L Hematocrit 33.4 % (42.0-52.0) L Mean Corpuscular Volume 84 FL (80-99) Mean Corpuscular Hemoglobin 29.1 PG (27.0-31.0) Mean Corpuscular Hemoglobin Concent 34.8 G/DL (32.0-36.0) Red Cell Distribution Width 11.7 % (11.6-14.8) Platelet Count 190 K/UL (150-450) Mean Platelet Volume 9.2 FL (6.5-10.1) Neutrophils (%) (Auto) 65.4 % (45.0-75.0) Lymphocytes (%) (Auto) 22.7 % (20.0-45.0) Monocytes (%) (Auto) 8.9 % (1.0-10.0) Eosinophils (%) (Auto) 2.4 % (0.0-3.0) Basophils (%) (Auto) 0.6 % (0.0-2.0) Sodium Level 138 MMOL/L (136-145) Potassium Level 3.8 MMOL/L (3.5-5.1) Chloride Level 101 MMOL/L (98-107) Carbon Dioxide Level 27 MMOL/L (21-32) Anion Gap 10 mmol/L (5-15) Blood Urea Nitrogen 33 mg/dL (7-18) H Creatinine 1.4 MG/DL (0.55-1.30) H Estimat Glomerular Filtration Rate 50.5 mL/min (>60) Glucose Level 202 MG/DL (74-106) H Calcium Level 8.5 MG/DL (8.5-10.1) Height (Feet): 5 Height (Inches): 5.00 Weight (Pounds): 180 General Appearance: WD/WN, no apparent distress, alert Cardiovascular: normal rate Respiratory/Chest: normal breath sounds, no respiratory distress Abdominal Exam: normal bowel sounds, non tender, soft Extremities: non-tender Carol Ontiveros N.P. Jul 09, 2017 13:38
--- NOTE | 2017-07-09 14:56 | Pulmonology Progress Note ---
Assessment/Plan Problems: (1) Osteomyelitis of ankle or foot, acute (2) Cellulitis of right lower extremity (3) Ulcer of heel and midfoot (4) ETOH abuse (5) HTN (hypertension) (6) Diabetes (7) Anemia (8) S/P BKA (below knee amputation) Assessment/Plan doing great all reviewed no new events skin getting much better pt/ot reordered eating better, dc planning in process \ Subjective ROS Limited/Unobtainable: No Constitutional: Reports: no symptoms HEENT: Repors: no symptoms Respiratory: Reports: no symptoms Allergies: Coded Allergies: No Known Allergies (Unverified , 11/16/14) Objective Last 24 Hour Vital Signs Date Time Temp Pulse Resp B/P (MAP) Pulse Ox O2 Delivery O2 Flow Rate FiO2 07/09/17 12:00 98.2 68 20 121/66 95 98.2 07/09/17 08:00 97.7 80 19 117/67 96 97.7 07/09/17 04:23 98.1 74 20 120/67 95 Room Air 98.1 07/09/17 00:22 97.0 82 20 120/72 95 Room Air 97.0 07/08/17 20:17 98.4 76 20 119/66 97 Room Air 98.4 07/08/17 15:56 97.7 83 20 108/68 96 97.7 Intake and Output 07/08/17 07/09/17 19:00 07:00 Intake Total 480 ml 360 ml Output Total 1200 ml 500 ml Balance -720 ml -140 ml Intake Oral 480 ml 360 ml Output Urine Total 1200 ml 500 ml # Bowel Movements 1 1 Objective General Appearance: WD/WN HEENT: normocephalic, atraumatic Respiratory/Chest: chest wall non-tender, lungs clear Breasts: no masses Cardiovascular: normal peripheral pulses, regular rhythm Abdomen: normal bowel sounds, soft, non tender Genitourinary: normal external genitalia Extremities: no cyanosis, aka Skin: extensive keratic lesions on leg Laboratory Tests 07/09/17 06:00: White Blood Count 11.0H, Red Blood Count 4.00L, Hemoglobin 11.6L, Hematocrit 33.4L, Mean Corpuscular Volume 84, Mean Corpuscular Hemoglobin 29.1, Mean Corpuscular Hemoglobin Concent 34.8, Red Cell Distribution Width 11.7, Platelet Count 190, Mean Platelet Volume 9.2, Neutrophils (%) (Auto) 65.4, Lymphocytes (% ) (Auto) 22.7, Monocytes (%) (Auto) 8.9, Eosinophils (%) (Auto) 2.4, Basophils ( %) (Auto) 0.6, Sodium Level 138, Potassium Level 3.8, Chloride Level 101, Carbon Dioxide Level 27, Anion Gap 10, Blood Urea Nitrogen 33H, Creatinine 1.4H , Estimat Glomerular Filtration Rate 50.5, Glucose Level 202H, Calcium Level 8.5 Current Medications Medications (Trade) Dose Ordered Sig/Caden Route PRN Reason Start Time Stop Time Status Last Admin Dose Admin Clotrimazole (Lotrimin) 1 applic EVERY 12 HOURS TOPIC 06/14/17 15:30 07/14/17 15:29 07/09/17 08:44 Dextrose (Dextrose 50%) 25 ml STAT PRN IV Hypoglycemia 06/20/17 12:15 07/20/17 12:14 Dextrose (Dextrose 50%) 50 ml STAT PRN IV Hypoglycemia 06/20/17 12:00 07/20/17 11:59 Heparin Sodium (Porcine) (Heparin 5000 units/ml) 5,000 units EVERY 12 HOURS SUBQ 06/20/17 10:30 07/20/17 10:29 07/09/17 08:45 Insulin Aspart (NovoLOG) BEFORE MEALS AND HS SUBQ 06/20/17 12:45 07/20/17 12:44 07/09/17 11:29 Ondansetron HCl (Zofran) 4 mg Q4H PRN IVP Nausea & Vomiting 07/07/17 08:00 08/06/17 07:59 07/07/17 09:15 Sodium Hypochlorite (Dakin's Quarter Strength) 1 applic DAILY TOPIC 06/28/17 09:00 07/28/17 08:59 07/09/17 08:44 Kyra Massey MD Jul 09, 2017 14:56
[2017-07-09 16:00] VITALS: BP 134/70
--- NOTE | 2017-07-09 16:13 | Internal Med Progress Note ---
Subjective Physician Name Tello Fay Attending Physician Tello Fay MD Current Medications Medications (Trade) Dose Ordered Sig/Caden Route PRN Reason Start Time Stop Time Status Last Admin Dose Admin Clotrimazole (Lotrimin) 1 applic EVERY 12 HOURS TOPIC 06/14/17 15:30 07/14/17 15:29 07/09/17 08:44 Dextrose (Dextrose 50%) 25 ml STAT PRN IV Hypoglycemia 06/20/17 12:15 07/20/17 12:14 Dextrose (Dextrose 50%) 50 ml STAT PRN IV Hypoglycemia 06/20/17 12:00 07/20/17 11:59 Heparin Sodium (Porcine) (Heparin 5000 units/ml) 5,000 units EVERY 12 HOURS SUBQ 06/20/17 10:30 07/20/17 10:29 07/09/17 08:45 Insulin Aspart (NovoLOG) BEFORE MEALS AND HS SUBQ 06/20/17 12:45 07/20/17 12:44 07/09/17 11:29 Ondansetron HCl (Zofran) 4 mg Q4H PRN IVP Nausea & Vomiting 07/07/17 08:00 08/06/17 07:59 07/07/17 09:15 Sodium Hypochlorite (Dakin's Quarter Strength) 1 applic DAILY TOPIC 06/28/17 09:00 07/28/17 08:59 07/09/17 08:44 Allergies: Coded Allergies: No Known Allergies (Unverified , 11/16/14) Subjective awake, alert, responsive, NAD, No CP or SOB, WBC: 11 Objective Last Vital Signs Date Time Temp Pulse Resp B/P (MAP) Pulse Ox O2 Delivery O2 Flow Rate FiO2 07/09/17 12:00 98.2 68 20 121/66 95 98.2 07/09/17 04:23 Room Air 07/08/17 12:30 6.0 Laboratory Tests Test 07/09/17 06:00 White Blood Count 11.0 K/UL (4.8-10.8) H Red Blood Count 4.00 M/UL (4.70-6.10) L Hemoglobin 11.6 G/DL (14.2-18.0) L Hematocrit 33.4 % (42.0-52.0) L Mean Corpuscular Volume 84 FL (80-99) Mean Corpuscular Hemoglobin 29.1 PG (27.0-31.0) Mean Corpuscular Hemoglobin Concent 34.8 G/DL (32.0-36.0) Red Cell Distribution Width 11.7 % (11.6-14.8) Platelet Count 190 K/UL (150-450) Mean Platelet Volume 9.2 FL (6.5-10.1) Neutrophils (%) (Auto) 65.4 % (45.0-75.0) Lymphocytes (%) (Auto) 22.7 % (20.0-45.0) Monocytes (%) (Auto) 8.9 % (1.0-10.0) Eosinophils (%) (Auto) 2.4 % (0.0-3.0) Basophils (%) (Auto) 0.6 % (0.0-2.0) Sodium Level 138 MMOL/L (136-145) Potassium Level 3.8 MMOL/L (3.5-5.1) Chloride Level 101 MMOL/L (98-107) Carbon Dioxide Level 27 MMOL/L (21-32) Anion Gap 10 mmol/L (5-15) Blood Urea Nitrogen 33 mg/dL (7-18) H Creatinine 1.4 MG/DL (0.55-1.30) H Estimat Glomerular Filtration Rate 50.5 mL/min (>60) Glucose Level 202 MG/DL (74-106) H Calcium Level 8.5 MG/DL (8.5-10.1) Intake and Output 07/08/17 07/09/17 19:00 07:00 Intake Total 480 ml 360 ml Output Total 1200 ml 500 ml Balance -720 ml -140 ml Intake Oral 480 ml 360 ml Output Urine Total 1200 ml 500 ml # Bowel Movements 1 1 Objective General: No acute distress, awake and alert HEENT: NCAT, sclera anicteric, PERRL, EOMI. Neck: Supple, no significant jugular venous distention, Lungs: Good inspiratory effort, clear to auscultation bilaterally, no Wheeze or Rales. Heart: Regular rate and rhythm, normal S1/S2, no murmur Abdomen: soft, nontender, nondistended. Normoactive bowel sounds. Extremities: No Cyanosis , clubbing or edema. Left LE BKA, Right foot dressing intact. Neuro: A&O x 3, Motor intact. Skin: warm, no rashes or lesions Psych: Normal mood and affect Assessment/Plan Assessment/Plan Low grade fever- possibly reactive to above- ; imporivng , no PNA -CXR 07/07: No radiographic evidence of acute cardiopulmonary disease. Right foot cellulitis (resolved). right big toe. osteo , s/p Rx -MRI R foot: Findings suspicious for osteomyelitis of the distal aspect of the first distal phalanx -wound cx E.fecalis ([place] S), CoNS (likely represents colonizers) Diabetes. Hyperlipidemia. Hypertension. Left BKA. History of alcohol abuse and smoking until recently. 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 PLAN: PT Mobility F/U with ID Recommendations: monitor pt off of IV AB Rx unless persistently febrile, new infiltrates in CXR and/or worsenign leukocytosis Clotrimazole topical Monitor labs and cultures Full code. Tello Fay MD Jul 09, 2017 16:13
--- NOTE | 2017-07-09 17:58 | Infectious Diseases Prog Note ---
Assessment/Plan Assessment/Plan The patient is a 66-year-old male with Coffee ground Emesis-?GIB -s/p EGD 07/08: Diffuse gastritis, status post biopsy, otherwise normal upper endoscopic examination. Low grade fever- possibly reactive to above- ; resolved, no PNA -CXR 07/07: No radiographic evidence of acute cardiopulmonary disease. Mild leukocytosis- posibly reactive Right foot cellulitis (resolved). right big toe. osteo , s/p Rx -MRI R foot: Findings suspicious for osteomyelitis of the distal aspect of the first distal phalanx -wound cx E.fecalis ([place] S), CoNS (likely represents colonizers) Fever, SP Normal white blood cells Influenza screening tests : Neg RP : 2.4 => 07/02 : 0.4 06/28 ESR : 74 => 07/02 : 31 Diabetes. Hyperlipidemia. Hypertension. Left BKA. History of alcohol abuse and smoking until recently. 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 PLAN: monitor pt off of IV AB Rx unless persistently febrile, new infiltrates in CXR and/or worsenign leukocytosis Clotrimazole topical If T>101, obtain 2 sets of Bcx - 07/01 SP IV vancomycin and Ceftriaxone and Flagyl ( abx d# 42/42 ) -05/24 SP Cefepime #4 Monitor CBC. Monitor BMP. Subjective Allergies: Coded Allergies: No Known Allergies (Unverified , 11/16/14) Subjective afebrile in ~72 hrs mild leukocytosis Objective Vital Signs Last 24 Hour Vital Signs Date Time Temp Pulse Resp B/P (MAP) Pulse Ox O2 Delivery O2 Flow Rate FiO2 07/09/17 16:00 97.9 69 18 134/70 97 97.9 07/09/17 12:00 98.2 68 20 121/66 95 98.2 07/09/17 08:00 97.7 80 19 117/67 96 97.7 07/09/17 04:23 98.1 74 20 120/67 95 Room Air 98.1 07/09/17 00:22 97.0 82 20 120/72 95 Room Air 97.0 07/08/17 20:17 98.4 76 20 119/66 97 Room Air 98.4 Height (Feet): 5 Height (Inches): 5.00 Weight (Pounds): 180 Objective General Appearance: WD/WN HEENT: normocephalic, atraumatic Respiratory/Chest: chest wall non-tender, lungs clear Breasts: no masses Cardiovascular: normal peripheral pulses, regular rhythm Abdomen: normal bowel sounds, soft, non tender Genitourinary: normal external genitalia Extremities: no cyanosis, aka Skin: extensive keratic lesions on leg Laboratory Tests Test 07/09/17 06:00 White Blood Count 11.0 K/UL (4.8-10.8) H Red Blood Count 4.00 M/UL (4.70-6.10) L Hemoglobin 11.6 G/DL (14.2-18.0) L Hematocrit 33.4 % (42.0-52.0) L Mean Corpuscular Volume 84 FL (80-99) Mean Corpuscular Hemoglobin 29.1 PG (27.0-31.0) Mean Corpuscular Hemoglobin Concent 34.8 G/DL (32.0-36.0) Red Cell Distribution Width 11.7 % (11.6-14.8) Platelet Count 190 K/UL (150-450) Mean Platelet Volume 9.2 FL (6.5-10.1) Neutrophils (%) (Auto) 65.4 % (45.0-75.0) Lymphocytes (%) (Auto) 22.7 % (20.0-45.0) Monocytes (%) (Auto) 8.9 % (1.0-10.0) Eosinophils (%) (Auto) 2.4 % (0.0-3.0) Basophils (%) (Auto) 0.6 % (0.0-2.0) Sodium Level 138 MMOL/L (136-145) Potassium Level 3.8 MMOL/L (3.5-5.1) Chloride Level 101 MMOL/L (98-107) Carbon Dioxide Level 27 MMOL/L (21-32) Anion Gap 10 mmol/L (5-15) Blood Urea Nitrogen 33 mg/dL (7-18) H Creatinine 1.4 MG/DL (0.55-1.30) H Estimat Glomerular Filtration Rate 50.5 mL/min (>60) Glucose Level 202 MG/DL (74-106) H Calcium Level 8.5 MG/DL (8.5-10.1) Current Medications Medications (Trade) Dose Ordered Sig/Caden Route PRN Reason Start Time Stop Time Status Last Admin Dose Admin Clotrimazole (Lotrimin) 1 applic EVERY 12 HOURS TOPIC 06/14/17 15:30 07/14/17 15:29 07/09/17 08:44 Dextrose (Dextrose 50%) 25 ml STAT PRN IV Hypoglycemia 06/20/17 12:15 07/20/17 12:14 Dextrose (Dextrose 50%) 50 ml STAT PRN IV Hypoglycemia 06/20/17 12:00 07/20/17 11:59 Heparin Sodium (Porcine) (Heparin 5000 units/ml) 5,000 units EVERY 12 HOURS SUBQ 06/20/17 10:30 07/20/17 10:29 07/09/17 08:45 Insulin Aspart (NovoLOG) BEFORE MEALS AND HS SUBQ 06/20/17 12:45 07/20/17 12:44 07/09/17 16:53 Ondansetron HCl (Zofran) 4 mg Q4H PRN IVP Nausea & Vomiting 07/07/17 08:00 08/06/17 07:59 07/07/17 09:15 Sodium Hypochlorite (Dakin's Quarter Strength) 1 applic DAILY TOPIC 06/28/17 09:00 07/28/17 08:59 07/09/17 08:44 Dena Frank M.D. Jul 09, 2017 17:58
[2017-07-09 19:56] VITALS: BP 119/69
[2017-07-10] VITALS: BP 133/80
[2017-07-10 04:00] VITALS: BP 110/75
[2017-07-10] MEDS: NovoLOG Insulin Flexpen SUBQ SCH ×4 (05:54→20:28)
--- NOTE | 2017-07-10 06:52 | General Progress Note ---
Assessment/Plan Problem List: (1) Cellulitis of foot without toes ICD Codes: L03.119 - Cellulitis of unspecified part of limb SNOMED: 375418122 (2) Hyperlipidemia ICD Codes: E78.5 - Hyperlipidemia, unspecified SNOMED: 50525524 (3) Osteomyelitis ICD Codes: M86.9 - Osteomyelitis, unspecified SNOMED: 51456716 (4) Diabetes ICD Codes: E11.9 - Diabetes SNOMED: 18331814 (5) HTN (hypertension) ICD Codes: I10 - Essential (primary) hypertension SNOMED: 89604768 Assessment/Plan add Starlix 60 mg ac tid continue NISS Subjective Allergies: Coded Allergies: No Known Allergies (Unverified , 11/16/14) All Systems: reviewed and negative except above Subjective events noted Objective Last 24 Hour Vital Signs Date Time Temp Pulse Resp B/P (MAP) Pulse Ox O2 Delivery O2 Flow Rate FiO2 07/10/17 04:00 97.0 79 20 110/75 100 Room Air 97.0 07/10/17 00:00 98.6 76 20 133/80 98 Room Air 98.6 07/09/17 19:56 97.2 71 20 119/69 97 Room Air 97.2 07/09/17 16:00 97.9 69 18 134/70 97 97.9 07/09/17 12:00 98.2 68 20 121/66 95 98.2 07/09/17 08:00 97.7 80 19 117/67 96 97.7 Intake and Output 07/09/17 07/10/17 19:00 07:00 Intake Total 620 ml 240 ml Output Total 300 ml Balance 620 ml -60 ml Intake Oral 620 ml 240 ml Output Urine Total 300 ml # Voids 4 # Bowel Movements 1 Height (Feet): 5 Height (Inches): 5.00 Weight (Pounds): 180 General Appearance: no apparent distress Neck: normal alignment Cardiovascular: normal rate Respiratory/Chest: lungs clear Abdomen: normal bowel sounds Objective Current Medications Medications (Trade) Dose Ordered Sig/Caden Route PRN Reason Start Time Stop Time Status Last Admin Dose Admin Clotrimazole (Lotrimin) 1 applic EVERY 12 HOURS TOPIC 06/14/17 15:30 07/14/17 15:29 07/09/17 22:22 Dextrose (Dextrose 50%) 25 ml STAT PRN IV Hypoglycemia 06/20/17 12:15 07/20/17 12:14 Dextrose (Dextrose 50%) 50 ml STAT PRN IV Hypoglycemia 06/20/17 12:00 07/20/17 11:59 Heparin Sodium (Porcine) (Heparin 5000 units/ml) 5,000 units EVERY 12 HOURS SUBQ 06/20/17 10:30 07/20/17 10:29 07/09/17 22:28 Insulin Aspart (NovoLOG) BEFORE MEALS AND HS SUBQ 06/20/17 12:45 07/20/17 12:44 07/10/17 05:54 Ondansetron HCl (Zofran) 4 mg Q4H PRN IVP Nausea & Vomiting 07/07/17 08:00 08/06/17 07:59 07/07/17 09:15 Sodium Hypochlorite (Dakin's Quarter Strength) 1 applic DAILY TOPIC 06/28/17 09:00 07/28/17 08:59 07/09/17 08:44 Item Value Date Time Bedside Blood Glucose 194 mg/dl H 07/10/17 0604 Bedside Blood Glucose 249 mg/dl H 07/09/17 2228 Bedside Blood Glucose 236 mg/dl H 07/09/17 1653 Bedside Blood Glucose 219 mg/dl H 07/09/17 1130 AUBREY LEWIS Jul 10, 2017 06:52
--- NOTE | 2017-07-10 07:47 | General Progress Note ---
Assessment/Plan Problem List: (1) ETOH abuse ICD Codes: F10.10 - Alcohol abuse, uncomplicated SNOMED: 31886766 (2) HTN (hypertension) ICD Codes: I10 - Essential (primary) hypertension SNOMED: 51621510 (3) Diabetes ICD Codes: E11.9 - Diabetes SNOMED: 96491179 (4) Anemia ICD Codes: D64.9 - Anemia SNOMED: 078751377 (5) GERD (gastroesophageal reflux disease) ICD Codes: K21.9 - GERD (gastroesophageal reflux disease) SNOMED: 357044016 Assessment/Plan fu EGD biopsy results iron panel stool OB will need out patient colonoscopy Subjective ROS Limited/Unobtainable: Yes Allergies: Coded Allergies: No Known Allergies (Unverified , 11/16/14) Subjective no event Objective Last 24 Hour Vital Signs Date Time Temp Pulse Resp B/P (MAP) Pulse Ox O2 Delivery O2 Flow Rate FiO2 07/10/17 04:00 97.0 79 20 110/75 100 Room Air 97.0 07/10/17 00:00 98.6 76 20 133/80 98 Room Air 98.6 07/09/17 19:56 97.2 71 20 119/69 97 Room Air 97.2 07/09/17 16:00 97.9 69 18 134/70 97 97.9 07/09/17 12:00 98.2 68 20 121/66 95 98.2 07/09/17 08:00 97.7 80 19 117/67 96 97.7 Intake and Output 07/09/17 07/10/17 19:00 07:00 Intake Total 620 ml 240 ml Output Total 300 ml Balance 620 ml -60 ml Intake Oral 620 ml 240 ml Output Urine Total 300 ml # Voids 4 # Bowel Movements 1 Height (Feet): 5 Height (Inches): 5.00 Weight (Pounds): 180 General Appearance: alert EENT: normal ENT inspection Neck: supple Cardiovascular: normal rate Respiratory/Chest: decreased breath sounds Abdomen: normal bowel sounds, non tender, soft Extremities: non-tender FELIPA WOODALL Jul 10, 2017 07:47
[2017-07-10 08:00] VITALS: BP 117/68
[2017-07-10] MEDS: Dakin's 0.125% Soln (Quarter Strength) 16oz TOPIC SCH (09:05)
[2017-07-10] MEDS: Heparin 5000 units/ml inj SUBQ SCH ×2 (09:08→20:28)
--- NOTE | 2017-07-10 11:41 | Infectious Diseases Prog Note ---
Assessment/Plan Assessment/Plan Assessment/Plan The patient is a 66-year-old male with Coffee ground Emesis-?GIB -s/p EGD 07/08: Diffuse gastritis, status post biopsy, otherwise normal upper endoscopic examination. Low grade fever- possibly reactive to above- ; resolved, no PNA -CXR 07/07: No radiographic evidence of acute cardiopulmonary disease. Mild leukocytosis- Right foot cellulitis (resolved). right big toe. osteo , s/p Rx -MRI R foot: Findings suspicious for osteomyelitis of the distal aspect of the first distal phalanx -wound cx E.fecalis ([place] S), CoNS (likely represents colonizers) Fever, SP Normal white blood cells Influenza screening tests : Neg RP : 2.4 => 07/02 : 0.4 06/28 ESR : 74 => 07/02 : 31 Diabetes. Hyperlipidemia. Hypertension. Left BKA. History of alcohol abuse and smoking until recently. 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 PLAN: monitor pt off of IV AB Rx unless persistently febrile, new infiltrates in CXR and/or worsenign leukocytosis Clotrimazole topical If T>101, obtain 2 sets of Bcx - 07/01 SP IV vancomycin and Ceftriaxone and Flagyl ( abx d# 42/42 ) -05/24 SP Cefepime #4 Monitor CBC. Monitor BMP. Subjective Allergies: Coded Allergies: No Known Allergies (Unverified , 11/16/14) Subjective comfortable Objective Vital Signs Last 24 Hour Vital Signs Date Time Temp Pulse Resp B/P (MAP) Pulse Ox O2 Delivery O2 Flow Rate FiO2 07/10/17 08:00 98.1 81 18 117/68 96 98.1 07/10/17 04:00 97.0 79 20 110/75 100 Room Air 97.0 07/10/17 00:00 98.6 76 20 133/80 98 Room Air 98.6 07/09/17 19:56 97.2 71 20 119/69 97 Room Air 97.2 07/09/17 16:00 97.9 69 18 134/70 97 97.9 07/09/17 12:00 98.2 68 20 121/66 95 98.2 Height (Feet): 5 Height (Inches): 5.00 Weight (Pounds): 180 HEENT: anicteric Respiratory/Chest: no respiratory distress Cardiovascular: regular rhythm Abdomen: no organomegaly Current Medications Medications (Trade) Dose Ordered Sig/Caden Route PRN Reason Start Time Stop Time Status Last Admin Dose Admin Clotrimazole (Lotrimin) 1 applic EVERY 12 HOURS TOPIC 06/14/17 15:30 07/14/17 15:29 07/10/17 09:05 Dextrose (Dextrose 50%) 25 ml STAT PRN IV Hypoglycemia 06/20/17 12:15 07/20/17 12:14 Dextrose (Dextrose 50%) 50 ml STAT PRN IV Hypoglycemia 06/20/17 12:00 07/20/17 11:59 Heparin Sodium (Porcine) (Heparin 5000 units/ml) 5,000 units EVERY 12 HOURS SUBQ 06/20/17 10:30 07/20/17 10:29 07/10/17 09:08 Insulin Aspart (NovoLOG) BEFORE MEALS AND HS SUBQ 06/20/17 12:45 07/20/17 12:44 07/10/17 05:54 Nateglinide (Starlix) 60 mg TIAC ORAL 07/10/17 11:30 08/09/17 11:29 Ondansetron HCl (Zofran) 4 mg Q4H PRN IVP Nausea & Vomiting 07/07/17 08:00 08/06/17 07:59 07/07/17 09:15 Sodium Hypochlorite (Dakin's Quarter Strength) 1 applic DAILY TOPIC 06/28/17 09:00 07/28/17 08:59 07/10/17 09:05 Yuriy Kelsey MD Jul 10, 2017 11:41
[2017-07-10 12:06] VITALS: BP 120/74
[2017-07-10] MEDS: Nateglinide 60mg tab ORAL SCH ×2 (12:32→16:59)
[2017-07-10 16:00] VITALS: BP 148/87
[2017-07-10 20:00] VITALS: BP 135/76
--- NOTE | 2017-07-10 20:55 | Internal Med Progress Note ---
Subjective Physician Name Tello Fay Attending Physician Tello Fay MD Current Medications Medications (Trade) Dose Ordered Sig/Caden Route PRN Reason Start Time Stop Time Status Last Admin Dose Admin Clotrimazole (Lotrimin) 1 applic EVERY 12 HOURS TOPIC 06/14/17 15:30 07/14/17 15:29 07/10/17 20:24 Dextrose (Dextrose 50%) 25 ml STAT PRN IV Hypoglycemia 06/20/17 12:15 07/20/17 12:14 Dextrose (Dextrose 50%) 50 ml STAT PRN IV Hypoglycemia 06/20/17 12:00 07/20/17 11:59 Heparin Sodium (Porcine) (Heparin 5000 units/ml) 5,000 units EVERY 12 HOURS SUBQ 06/20/17 10:30 07/20/17 10:29 07/10/17 20:28 Insulin Aspart (NovoLOG) BEFORE MEALS AND HS SUBQ 06/20/17 12:45 07/20/17 12:44 07/10/17 20:28 Nateglinide (Starlix) 60 mg TIAC ORAL 07/10/17 11:30 08/09/17 11:29 07/10/17 16:59 Ondansetron HCl (Zofran) 4 mg Q4H PRN IVP Nausea & Vomiting 07/07/17 08:00 08/06/17 07:59 07/07/17 09:15 Sodium Hypochlorite (Dakin's Quarter Strength) 1 applic DAILY TOPIC 06/28/17 09:00 07/28/17 08:59 07/10/17 09:05 Allergies: Coded Allergies: No Known Allergies (Unverified , 11/16/14) Subjective awake, alert, responsive, NAD, No CP or SOB Objective Last Vital Signs Date Time Temp Pulse Resp B/P (MAP) Pulse Ox O2 Delivery O2 Flow Rate FiO2 07/10/17 16:00 Room Air 07/10/17 16:00 97.6 80 19 148/87 98 97.6 07/08/17 12:30 6.0 Intake and Output 07/09/17 07/10/17 19:00 07:00 Intake Total 620 ml 240 ml Output Total 300 ml Balance 620 ml -60 ml Intake Oral 620 ml 240 ml Output Urine Total 300 ml # Voids 4 2 # Bowel Movements 1 1 Objective General: No acute distress, awake and alert HEENT: NCAT, sclera anicteric, PERRL, EOMI. Neck: Supple, no significant jugular venous distention, Lungs: Good inspiratory effort, clear to auscultation bilaterally, no Wheeze or Rales. Heart: Regular rate and rhythm, normal S1/S2, no murmur Abdomen: soft, nontender, nondistended. Normoactive bowel sounds. Extremities: No Cyanosis , clubbing or edema. Left LE BKA, Right foot dressing intact. Neuro: A&O x 3, Motor intact. Skin: warm, no rashes or lesions Psych: Normal mood and affect Assessment/Plan Assessment/Plan Low grade fever- possibly reactive to above- ; imporivng , no PNA -CXR 07/07: No radiographic evidence of acute cardiopulmonary disease. Right foot cellulitis (resolved). right big toe. osteo , s/p Rx -MRI R foot: Findings suspicious for osteomyelitis of the distal aspect of the first distal phalanx -wound cx E.fecalis ([place] S), CoNS (likely represents colonizers) Diabetes. Hyperlipidemia. Hypertension. Left BKA. History of alcohol abuse and smoking until recently. 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 PLAN: PT Mobility F/U with ID Recommendations: monitor pt off of IV AB Rx unless persistently febrile, new infiltrates in CXR and/or worsening leukocytosis Clotrimazole topical Monitor labs and cultures Full code. Tello Fay MD Jul 10, 2017 20:55
--- NOTE | 2017-07-10 22:35 | Pulmonology Progress Note ---
Assessment/Plan Problems: (1) Osteomyelitis of ankle or foot, acute (2) Cellulitis of right lower extremity (3) Ulcer of heel and midfoot (4) ETOH abuse (5) HTN (hypertension) (6) Diabetes (7) Anemia (8) S/P BKA (below knee amputation) Assessment/Plan doing great all reviewed no new events skin getting much better pt/ot reordered eating better, dc planning in process \ Subjective ROS Limited/Unobtainable: No Allergies: Coded Allergies: No Known Allergies (Unverified , 11/16/14) Objective Last 24 Hour Vital Signs Date Time Temp Pulse Resp B/P (MAP) Pulse Ox O2 Delivery O2 Flow Rate FiO2 07/10/17 20:00 98.4 81 19 135/76 96 Room Air 98.4 07/10/17 16:00 Room Air 07/10/17 16:00 97.6 80 19 148/87 98 97.6 07/10/17 12:06 97.9 79 20 120/74 99 Room Air 97.9 07/10/17 08:00 98.1 81 18 117/68 96 98.1 07/10/17 04:00 97.0 79 20 110/75 100 Room Air 97.0 07/10/17 00:00 98.6 76 20 133/80 98 Room Air 98.6 Intake and Output 07/09/17 07/10/17 19:00 07:00 Intake Total 620 ml 240 ml Output Total 300 ml Balance 620 ml -60 ml Intake Oral 620 ml 240 ml Output Urine Total 300 ml # Voids 4 2 # Bowel Movements 1 1 Objective General Appearance: WD/WN HEENT: normocephalic, atraumatic Respiratory/Chest: chest wall non-tender, lungs clear Breasts: no masses Cardiovascular: normal peripheral pulses, regular rhythm Abdomen: normal bowel sounds, soft, non tender Genitourinary: normal external genitalia Extremities: no cyanosis, aka Skin: extensive keratic lesions on leg Current Medications Medications (Trade) Dose Ordered Sig/Caden Route PRN Reason Start Time Stop Time Status Last Admin Dose Admin Clotrimazole (Lotrimin) 1 applic EVERY 12 HOURS TOPIC 06/14/17 15:30 07/14/17 15:29 07/10/17 20:24 Dextrose (Dextrose 50%) 25 ml STAT PRN IV Hypoglycemia 06/20/17 12:15 07/20/17 12:14 Dextrose (Dextrose 50%) 50 ml STAT PRN IV Hypoglycemia 06/20/17 12:00 07/20/17 11:59 Heparin Sodium (Porcine) (Heparin 5000 units/ml) 5,000 units EVERY 12 HOURS SUBQ 06/20/17 10:30 07/20/17 10:29 07/10/17 20:28 Insulin Aspart (NovoLOG) BEFORE MEALS AND HS SUBQ 06/20/17 12:45 07/20/17 12:44 07/10/17 20:28 Nateglinide (Starlix) 60 mg TIAC ORAL 07/10/17 11:30 08/09/17 11:29 07/10/17 16:59 Ondansetron HCl (Zofran) 4 mg Q4H PRN IVP Nausea & Vomiting 07/07/17 08:00 08/06/17 07:59 07/07/17 09:15 Sodium Hypochlorite (Dakin's Quarter Strength) 1 applic DAILY TOPIC 06/28/17 09:00 07/28/17 08:59 07/10/17 09:05 Kyra Massey MD Jul 10, 2017 22:35
[2017-07-11] VITALS: BP 128/75
[2017-07-11 04:00] VITALS: BP 116/82
[2017-07-11] MEDS: Nateglinide 60mg tab ORAL SCH ×3 (06:15→16:54)
[2017-07-11] MEDS: NovoLOG Insulin Flexpen SUBQ SCH ×4 (06:19→20:43)
--- NOTE | 2017-07-11 06:52 | General Progress Note ---
Assessment/Plan Problem List: (1) Cellulitis of foot without toes ICD Codes: L03.119 - Cellulitis of unspecified part of limb SNOMED: 068466931 (2) Hyperlipidemia ICD Codes: E78.5 - Hyperlipidemia, unspecified SNOMED: 22528990 (3) Osteomyelitis ICD Codes: M86.9 - Osteomyelitis, unspecified SNOMED: 08150111 (4) Diabetes ICD Codes: E11.9 - Diabetes SNOMED: 37747027 (5) HTN (hypertension) ICD Codes: I10 - Essential (primary) hypertension SNOMED: 53168183 Assessment/Plan add Januvia 50 mg daily continue Starlix 60 mg ac tid continue NISS Subjective Allergies: Coded Allergies: No Known Allergies (Unverified , 11/16/14) All Systems: reviewed and negative except above Subjective events noted Objective Last 24 Hour Vital Signs Date Time Temp Pulse Resp B/P (MAP) Pulse Ox O2 Delivery O2 Flow Rate FiO2 07/11/17 04:00 99.0 85 18 116/82 97 Room Air 99.0 07/11/17 00:00 98.6 84 20 128/75 95 Room Air 98.6 07/10/17 20:00 98.4 81 19 135/76 96 Room Air 98.4 07/10/17 16:00 Room Air 07/10/17 16:00 97.6 80 19 148/87 98 97.6 07/10/17 12:06 97.9 79 20 120/74 99 Room Air 97.9 07/10/17 08:00 98.1 81 18 117/68 96 98.1 Intake and Output 07/10/17 07/11/17 19:00 07:00 Intake Total 750 ml Balance 750 ml Intake Oral 750 ml # Voids 3 3 # Bowel Movements 2 3 Laboratory Tests 07/10/17 20:30: Stool Occult Blood [Pending] Height (Feet): 5 Height (Inches): 5.00 Weight (Pounds): 180 General Appearance: no apparent distress Neck: normal alignment Cardiovascular: normal rate Respiratory/Chest: lungs clear Abdomen: normal bowel sounds Objective Current Medications Medications (Trade) Dose Ordered Sig/Caden Route PRN Reason Start Time Stop Time Status Last Admin Dose Admin Clotrimazole (Lotrimin) 1 applic EVERY 12 HOURS TOPIC 06/14/17 15:30 07/14/17 15:29 07/10/17 20:24 Dextrose (Dextrose 50%) 25 ml STAT PRN IV Hypoglycemia 06/20/17 12:15 07/20/17 12:14 Dextrose (Dextrose 50%) 50 ml STAT PRN IV Hypoglycemia 06/20/17 12:00 07/20/17 11:59 Heparin Sodium (Porcine) (Heparin 5000 units/ml) 5,000 units EVERY 12 HOURS SUBQ 06/20/17 10:30 07/20/17 10:29 07/10/17 20:28 Insulin Aspart (NovoLOG) BEFORE MEALS AND HS SUBQ 06/20/17 12:45 07/20/17 12:44 07/11/17 06:19 Nateglinide (Starlix) 60 mg TIAC ORAL 07/10/17 11:30 08/09/17 11:29 07/11/17 06:15 Ondansetron HCl (Zofran) 4 mg Q4H PRN IVP Nausea & Vomiting 07/07/17 08:00 08/06/17 07:59 07/07/17 09:15 Sodium Hypochlorite (Dakin's Quarter Strength) 1 applic DAILY TOPIC 06/28/17 09:00 07/28/17 08:59 07/10/17 09:05 Item Value Date Time Bedside Blood Glucose 223 mg/dl H 07/11/17 0645 Bedside Blood Glucose 196 mg/dl H 07/10/17 2100 Bedside Blood Glucose 264 mg/dl H 07/10/17 1659 Bedside Blood Glucose 265 mg/dl H 07/10/17 1235 Bedside Blood Glucose 194 mg/dl H 07/10/17 0604 AUBREY LEWIS Jul 11, 2017 06:52
--- NOTE | 2017-07-11 07:33 | General Progress Note ---
Assessment/Plan Problem List: (1) ETOH abuse ICD Codes: F10.10 - Alcohol abuse, uncomplicated SNOMED: 57088364 (2) HTN (hypertension) ICD Codes: I10 - Essential (primary) hypertension SNOMED: 81494653 (3) Diabetes ICD Codes: E11.9 - Diabetes SNOMED: 73486790 (4) Anemia ICD Codes: D64.9 - Anemia SNOMED: 067491281 (5) GERD (gastroesophageal reflux disease) ICD Codes: K21.9 - GERD (gastroesophageal reflux disease) SNOMED: 336363410 Assessment/Plan fu EGD biopsy results iron panel stool OB will need out patient colonoscopy Subjective ROS Limited/Unobtainable: Yes Allergies: Coded Allergies: No Known Allergies (Unverified , 11/16/14) Subjective no event Objective Last 24 Hour Vital Signs Date Time Temp Pulse Resp B/P (MAP) Pulse Ox O2 Delivery O2 Flow Rate FiO2 07/11/17 04:00 99.0 85 18 116/82 97 Room Air 99.0 07/11/17 00:00 98.6 84 20 128/75 95 Room Air 98.6 07/10/17 20:00 98.4 81 19 135/76 96 Room Air 98.4 07/10/17 16:00 Room Air 07/10/17 16:00 97.6 80 19 148/87 98 97.6 07/10/17 12:06 97.9 79 20 120/74 99 Room Air 97.9 07/10/17 08:00 98.1 81 18 117/68 96 98.1 Intake and Output 07/10/17 07/11/17 19:00 07:00 Intake Total 750 ml 240 ml Balance 750 ml 240 ml Intake Oral 750 ml 240 ml # Voids 3 3 # Bowel Movements 2 3 Laboratory Tests 07/10/17 20:30: Stool Occult Blood [Pending] Height (Feet): 5 Height (Inches): 5.00 Weight (Pounds): 180 General Appearance: alert EENT: normal ENT inspection Neck: supple Cardiovascular: normal rate Respiratory/Chest: decreased breath sounds Abdomen: normal bowel sounds, non tender, soft Extremities: non-tender FELIPA WODOALL Jul 11, 2017 07:33
[2017-07-11 08:00] VITALS: BP 121/72
[2017-07-11] MEDS: sitaGLIPtin 50mg tab ORAL SCH (08:00)
[2017-07-11 08:13] LABS: BASOPHILS % (AUTO) 0.6 % (0.0-2.0); EOSINOPHILS % (AUTO) 2.4 % (0.0-3.0); HEMATOCRIT 33.4 % (42.0-52.0); HEMOGLOBIN 11.7 G/DL (14.2-18.0); LYMPHOCYTES % (AUTO) 25.7 % (20.0-45.0); MEAN CORPUSCULAR VOLUME 84 FL (80-99); MONOCYTES % (AUTO) 9.5 % (1.0-10.0); NEUTROPHILS % (AUTO) 61.9 % (45.0-75.0); PLATELET COUNT 193 K/UL (150-450); RED BLOOD COUNT 3.96 M/UL (4.70-6.10); RED CELL DISTRIBUTION WIDTH 11.5 % (11.6-14.8); WHITE BLOOD COUNT 8.6 K/UL (4.8-10.8)
[2017-07-11] MEDS: Dakin's 0.125% Soln (Quarter Strength) 16oz TOPIC SCH (08:43)
[2017-07-11] MEDS: Heparin 5000 units/ml inj SUBQ SCH ×2 (08:45→20:44)
[2017-07-11 09:16] LABS: ALANINE AMINOTRANSFERASE 18 U/L (12-78); ALBUMIN 2.7 G/DL (3.4-5.0); ALBUMIN/GLOBULIN RATIO 0.6 (1.0-2.7); ALKALINE PHOSPHATASE 59 U/L (46-116); ANION GAP 10 mmol/L (5-15); ASPARTATE AMINO TRANSFERASE 13 U/L (15-37); BILIRUBIN,TOTAL 0.2 MG/DL (0.2-1.0); BLOOD UREA NITROGEN 17 mg/dL (7-18); CALCIUM 8.4 MG/DL (8.5-10.1); CARBON DIOXIDE 25 MMOL/L (21-32); CHLORIDE 102 MMOL/L (98-107); CREATININE 1.1 MG/DL (0.55-1.30); POTASSIUM 3.1 MMOL/L (3.5-5.1); SODIUM 137 MMOL/L (136-145)
[2017-07-11 10:01] LABS: % IRON SATURATION 38 % (15-50); IRON 68 ug/dL (50-175); TOTAL IRON BINDING CAPACITY 179 ug/dL (250-450)
--- NOTE | 2017-07-11 10:45 | Internal Med Progress Note ---
Subjective Physician Name Tello Fay Attending Physician Tello Fay MD Current Medications Medications (Trade) Dose Ordered Sig/Caden Route PRN Reason Start Time Stop Time Status Last Admin Dose Admin Clotrimazole (Lotrimin) 1 applic EVERY 12 HOURS TOPIC 06/14/17 15:30 07/14/17 15:29 07/11/17 08:43 Dextrose (Dextrose 50%) 25 ml STAT PRN IV Hypoglycemia 06/20/17 12:15 07/20/17 12:14 Dextrose (Dextrose 50%) 50 ml STAT PRN IV Hypoglycemia 06/20/17 12:00 07/20/17 11:59 Heparin Sodium (Porcine) (Heparin 5000 units/ml) 5,000 units EVERY 12 HOURS SUBQ 06/20/17 10:30 07/20/17 10:29 07/11/17 08:45 Insulin Aspart (NovoLOG) BEFORE MEALS AND HS SUBQ 06/20/17 12:45 07/20/17 12:44 07/11/17 06:19 Nateglinide (Starlix) 60 mg TIAC ORAL 07/10/17 11:30 08/09/17 11:29 07/11/17 06:15 Ondansetron HCl (Zofran) 4 mg Q4H PRN IVP Nausea & Vomiting 07/07/17 08:00 08/06/17 07:59 07/07/17 09:15 Sitagliptin Phosphate (Januvia) 50 mg ACBREAKFAST ORAL 07/11/17 08:00 08/10/17 07:59 Sodium Hypochlorite (Dakin's Quarter Strength) 1 applic DAILY TOPIC 06/28/17 09:00 07/28/17 08:59 07/11/17 08:43 Allergies: Coded Allergies: No Known Allergies (Unverified , 11/16/14) Subjective awake, alert, responsive, NAD, No CP or SOB, renal function improved. Objective Last Vital Signs Date Time Temp Pulse Resp B/P (MAP) Pulse Ox O2 Delivery O2 Flow Rate FiO2 07/11/17 08:00 97.7 71 19 121/72 98 97.7 07/11/17 04:00 Room Air 07/08/17 12:30 6.0 Laboratory Tests Test 07/10/17 20:30 07/11/17 05:40 Stool Occult Blood Pending White Blood Count 8.6 K/UL (4.8-10.8) Red Blood Count 3.96 M/UL (4.70-6.10) L Hemoglobin 11.7 G/DL (14.2-18.0) L Hematocrit 33.4 % (42.0-52.0) L Mean Corpuscular Volume 84 FL (80-99) Mean Corpuscular Hemoglobin 29.5 PG (27.0-31.0) Mean Corpuscular Hemoglobin Concent 34.9 G/DL (32.0-36.0) Red Cell Distribution Width 11.5 % (11.6-14.8) L Platelet Count 193 K/UL (150-450) Mean Platelet Volume 10.1 FL (6.5-10.1) Neutrophils (%) (Auto) 61.9 % (45.0-75.0) Lymphocytes (%) (Auto) 25.7 % (20.0-45.0) Monocytes (%) (Auto) 9.5 % (1.0-10.0) Eosinophils (%) (Auto) 2.4 % (0.0-3.0) Basophils (%) (Auto) 0.6 % (0.0-2.0) Sodium Level 137 MMOL/L (136-145) Potassium Level 3.1 MMOL/L (3.5-5.1) L Chloride Level 102 MMOL/L (98-107) Carbon Dioxide Level 25 MMOL/L (21-32) Anion Gap 10 mmol/L (5-15) Blood Urea Nitrogen 17 mg/dL (7-18) Creatinine 1.1 MG/DL (0.55-1.30) Estimat Glomerular Filtration Rate > 60 mL/min (>60) Glucose Level 234 MG/DL (74-106) H Calcium Level 8.4 MG/DL (8.5-10.1) L Phosphorus Level 3.0 MG/DL (2.5-4.9) Magnesium Level 1.7 MG/DL (1.5-2.4) Iron Level 68 ug/dL (50-175) Total Iron Binding Capacity 179 ug/dL (250-450) L Percent Iron Saturation 38 % (15-50) Unsaturated Iron Binding 111 ug/dL (112-346) L Total Bilirubin 0.2 MG/DL (0.2-1.0) Aspartate Amino Transf (AST/SGOT) 13 U/L (15-37) L Alanine Aminotransferase (ALT/SGPT) 18 U/L (12-78) Alkaline Phosphatase 59 U/L (46-116) Total Protein 7.1 G/DL (6.4-8.2) Albumin 2.7 G/DL (3.4-5.0) L Globulin 4.4 g/dL Albumin/Globulin Ratio 0.6 (1.0-2.7) L Intake and Output 07/10/17 07/11/17 19:00 07:00 Intake Total 750 ml 240 ml Balance 750 ml 240 ml Intake Oral 750 ml 240 ml # Voids 3 3 # Bowel Movements 2 3 Objective General: No acute distress, awake and alert HEENT: NCAT, sclera anicteric, PERRL, EOMI. Neck: Supple, no significant jugular venous distention, Lungs: Good inspiratory effort, clear to auscultation bilaterally, no Wheeze or Rales. Heart: Regular rate and rhythm, normal S1/S2, no murmur Abdomen: soft, nontender, nondistended. Normoactive bowel sounds. Extremities: No Cyanosis , clubbing or edema. Left LE BKA, Right foot dressing intact. Neuro: A&O x 3, Motor intact. Skin: warm, no rashes or lesions Psych: Normal mood and affect Assessment/Plan Assessment/Plan Low grade fever- possibly reactive to above- ; imporivng , no PNA -CXR 07/07: No radiographic evidence of acute cardiopulmonary disease. Right foot cellulitis (resolved). right big toe. osteo , s/p Rx -MRI R foot: Findings suspicious for osteomyelitis of the distal aspect of the first distal phalanx -wound cx E.fecalis ([place] S), CoNS (likely represents colonizers) Diabetes. Hyperlipidemia. Hypertension. Left BKA. History of alcohol abuse and smoking until recently. 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 PLAN: PT Mobility F/U with ID Recommendations: monitor pt off of IV AB Rx unless persistently febrile, new infiltrates in CXR and/or worsening leukocytosis Clotrimazole topical Monitor labs and cultures Full code. DC planning, waiting for placement. Tello Fay MD Jul 11, 2017 10:45
[2017-07-11 12:00] VITALS: BP 127/73
--- NOTE | 2017-07-11 17:27 | Pulmonology Progress Note ---
Assessment/Plan Problems: (1) Osteomyelitis of ankle or foot, acute (2) Cellulitis of right lower extremity (3) Ulcer of heel and midfoot (4) ETOH abuse (5) HTN (hypertension) (6) Diabetes (7) Anemia (8) S/P BKA (below knee amputation) Assessment/Plan doing great all reviewed no new events skin getting much better pt/ot reordered eating better, dc planning in process \ Subjective ROS Limited/Unobtainable: No Allergies: Coded Allergies: No Known Allergies (Unverified , 11/16/14) Objective Last 24 Hour Vital Signs Date Time Temp Pulse Resp B/P (MAP) Pulse Ox O2 Delivery O2 Flow Rate FiO2 07/11/17 12:00 97.4 68 20 127/73 97 97.4 07/11/17 08:00 97.7 71 19 121/72 98 97.7 07/11/17 04:00 99.0 85 18 116/82 97 Room Air 99.0 07/11/17 00:00 98.6 84 20 128/75 95 Room Air 98.6 07/10/17 20:00 98.4 81 19 135/76 96 Room Air 98.4 Intake and Output 07/10/17 07/11/17 19:00 07:00 Intake Total 750 ml 240 ml Balance 750 ml 240 ml Intake Oral 750 ml 240 ml # Voids 3 3 # Bowel Movements 2 3 Objective General Appearance: WD/WN HEENT: normocephalic, atraumatic Respiratory/Chest: chest wall non-tender, lungs clear Breasts: no masses Cardiovascular: normal peripheral pulses, regular rhythm Abdomen: normal bowel sounds, soft, non tender Genitourinary: normal external genitalia Extremities: no cyanosis, aka Skin: extensive keratic lesions on leg Laboratory Tests 07/10/17 20:30: Stool Occult Blood Positive 07/11/17 05:40: White Blood Count 8.6, Red Blood Count 3.96L, Hemoglobin 11.7L, Hematocrit 33.4L , Mean Corpuscular Volume 84, Mean Corpuscular Hemoglobin 29.5, Mean Corpuscular Hemoglobin Concent 34.9, Red Cell Distribution Width 11.5L, Platelet Count 193, Mean Platelet Volume 10.1, Neutrophils (%) (Auto) 61.9, Lymphocytes (%) (Auto) 25.7, Monocytes (%) (Auto) 9.5, Eosinophils (%) (Auto) 2.4, Basophils (%) (Auto) 0.6, Sodium Level 137, Potassium Level 3.1L, Chloride Level 102, Carbon Dioxide Level 25, Anion Gap 10, Blood Urea Nitrogen 17, Creatinine 1.1, Estimat Glomerular Filtration Rate > 60, Glucose Level 234H, Calcium Level 8.4L, Phosphorus Level 3.0, Magnesium Level 1.7, Iron Level 68, Total Iron Binding Capacity 179L, Percent Iron Saturation 38, Unsaturated Iron Binding 111L, Total Bilirubin 0.2, Aspartate Amino Transf (AST/SGOT) 13L, Alanine Aminotransferase (ALT/SGPT) 18, Alkaline Phosphatase 59, Total Protein 7.1, Albumin 2.7L, Globulin 4.4, Albumin/Globulin Ratio 0.6L Current Medications Medications (Trade) Dose Ordered Sig/Caden Route PRN Reason Start Time Stop Time Status Last Admin Dose Admin Clotrimazole (Lotrimin) 1 applic EVERY 12 HOURS TOPIC 06/14/17 15:30 07/14/17 15:29 07/11/17 08:43 Dextrose (Dextrose 50%) 25 ml STAT PRN IV Hypoglycemia 06/20/17 12:15 07/20/17 12:14 Dextrose (Dextrose 50%) 50 ml STAT PRN IV Hypoglycemia 06/20/17 12:00 07/20/17 11:59 Heparin Sodium (Porcine) (Heparin 5000 units/ml) 5,000 units EVERY 12 HOURS SUBQ 06/20/17 10:30 07/20/17 10:29 07/11/17 08:45 Insulin Aspart (NovoLOG) BEFORE MEALS AND HS SUBQ 06/20/17 12:45 07/20/17 12:44 07/11/17 16:57 Nateglinide (Starlix) 60 mg TIAC ORAL 07/10/17 11:30 08/09/17 11:29 07/11/17 16:54 Ondansetron HCl (Zofran) 4 mg Q4H PRN IVP Nausea & Vomiting 07/07/17 08:00 08/06/17 07:59 07/07/17 09:15 Sitagliptin Phosphate (Januvia) 50 mg ACBREAKFAST ORAL 07/11/17 08:00 08/10/17 07:59 Sodium Hypochlorite (Dakin's Quarter Strength) 1 applic DAILY TOPIC 06/28/17 09:00 07/28/17 08:59 07/11/17 08:43 Kyra Massey MD Jul 11, 2017 17:26
[2017-07-11 20:00] VITALS: BP 134/82
[2017-07-12] VITALS (7 sets, daily range): BP systolic 117–144; BP diastolic 70–86
[2017-07-12] MEDS: sitaGLIPtin 50mg tab ORAL SCH (05:55)
[2017-07-12] MEDS: Nateglinide 60mg tab ORAL SCH (05:56)
[2017-07-12] MEDS: NovoLOG Insulin Flexpen SUBQ SCH ×4 (05:59→20:28)
--- NOTE | 2017-07-12 07:09 | General Progress Note ---
Assessment/Plan Problem List: (1) Cellulitis of foot without toes ICD Codes: L03.119 - Cellulitis of unspecified part of limb SNOMED: 834929073 (2) Hyperlipidemia ICD Codes: E78.5 - Hyperlipidemia, unspecified SNOMED: 16775935 (3) Osteomyelitis ICD Codes: M86.9 - Osteomyelitis, unspecified SNOMED: 91532468 (4) Diabetes ICD Codes: E11.9 - Diabetes SNOMED: 62037489 (5) HTN (hypertension) ICD Codes: I10 - Essential (primary) hypertension SNOMED: 97703200 Assessment/Plan continue Januvia 50 mg daily increase Starlix to 120 mg ac tid add Metformin 500 mg tid add Levemir 10 units qam continue NISS Subjective Allergies: Coded Allergies: No Known Allergies (Unverified , 11/16/14) All Systems: reviewed and negative except above Subjective events noted Objective Last 24 Hour Vital Signs Date Time Temp Pulse Resp B/P (MAP) Pulse Ox O2 Delivery O2 Flow Rate FiO2 07/12/17 04:00 97.8 71 17 135/79 98 97.8 07/12/17 00:00 Room Air 07/12/17 00:00 97.4 61 16 131/82 99 97.4 07/11/17 20:00 97.5 66 16 134/82 98 97.5 07/11/17 20:00 Room Air 07/11/17 12:00 97.4 68 20 127/73 97 97.4 07/11/17 08:00 97.7 71 19 121/72 98 97.7 Intake and Output 07/11/17 07/12/17 19:00 07:00 Intake Total 750 ml Output Total 650 ml Balance 750 ml -650 ml Intake Oral 750 ml Output Urine Total 650 ml # Voids 3 # Bowel Movements 2 1 Laboratory Tests 07/12/17 05:15: White Blood Count [Pending], Red Blood Count [Pending], Hemoglobin [Pending], Hematocrit [Pending], Mean Corpuscular Volume [Pending], Mean Corpuscular Hemoglobin [Pending], Mean Corpuscular Hemoglobin Concent [Pending], Red Cell Distribution Width [Pending], Platelet Count [Pending], Mean Platelet Volume [ Pending], Neutrophils (%) (Auto) [Pending], Lymphocytes (%) (Auto) [Pending], Monocytes (%) (Auto) [Pending], Eosinophils (%) (Auto) [Pending], Basophils (%) (Auto) [Pending], Sodium Level [Pending], Potassium Level [Pending], Chloride Level [Pending], Carbon Dioxide Level [Pending], Blood Urea Nitrogen [Pending], Creatinine [Pending], Estimat Glomerular Filtration Rate [Pending], Glucose Level [Pending], Calcium Level [Pending] Height (Feet): 5 Height (Inches): 5.00 Weight (Pounds): 180 General Appearance: no apparent distress Neck: normal alignment Cardiovascular: normal rate Respiratory/Chest: lungs clear Abdomen: normal bowel sounds Objective Current Medications Medications (Trade) Dose Ordered Sig/Caden Route PRN Reason Start Time Stop Time Status Last Admin Dose Admin Clotrimazole (Lotrimin) 1 applic EVERY 12 HOURS TOPIC 06/14/17 15:30 07/14/17 15:29 07/11/17 20:37 Dextrose (Dextrose 50%) 25 ml STAT PRN IV Hypoglycemia 06/20/17 12:15 07/20/17 12:14 Dextrose (Dextrose 50%) 50 ml STAT PRN IV Hypoglycemia 06/20/17 12:00 07/20/17 11:59 Heparin Sodium (Porcine) (Heparin 5000 units/ml) 5,000 units EVERY 12 HOURS SUBQ 06/20/17 10:30 07/20/17 10:29 07/11/17 20:44 Insulin Aspart (NovoLOG) BEFORE MEALS AND HS SUBQ 06/20/17 12:45 07/20/17 12:44 07/12/17 05:59 Nateglinide (Starlix) 60 mg TIAC ORAL 07/10/17 11:30 08/09/17 11:29 07/12/17 05:56 Ondansetron HCl (Zofran) 4 mg Q4H PRN IVP Nausea & Vomiting 07/07/17 08:00 08/06/17 07:59 07/07/17 09:15 Sitagliptin Phosphate (Januvia) 50 mg ACBREAKFAST ORAL 07/11/17 08:00 08/10/17 07:59 07/12/17 05:55 Sodium Hypochlorite (Dakin's Quarter Strength) 1 applic DAILY TOPIC 06/28/17 09:00 07/28/17 08:59 07/11/17 08:43 Item Value Date Time Bedside Blood Glucose 169 mg/dl H 07/12/17 0633 Bedside Blood Glucose 210 mg/dl H 07/11/17 2100 Bedside Blood Glucose 238 mg/dl H 07/11/17 1657 Bedside Blood Glucose 289 mg/dl H 07/11/17 1213 Bedside Blood Glucose 223 mg/dl H 07/11/17 0645 AUBREY LEWIS Jul 12, 2017 07:08
[2017-07-12 07:13] LABS: BASOPHILS % (AUTO) 1.1 % (0.0-2.0); EOSINOPHILS % (AUTO) 5.2 % (0.0-3.0); HEMATOCRIT 33.2 % (42.0-52.0); HEMOGLOBIN 11.7 G/DL (14.2-18.0); LYMPHOCYTES % (AUTO) 40.3 % (20.0-45.0); MEAN CORPUSCULAR VOLUME 83 FL (80-99); NEUTROPHILS % (AUTO) 45.5 % (45.0-75.0); PLATELET COUNT 191 K/UL (150-450); RED BLOOD COUNT 3.98 M/UL (4.70-6.10); RED CELL DISTRIBUTION WIDTH 11.6 % (11.6-14.8); WHITE BLOOD COUNT 6.2 K/UL (4.8-10.8)
[2017-07-12 07:23] LABS: ANION GAP 9 mmol/L (5-15); BLOOD UREA NITROGEN 15 mg/dL (7-18); CALCIUM 8.4 MG/DL (8.5-10.1); CARBON DIOXIDE 25 MMOL/L (21-32); CHLORIDE 105 MMOL/L (98-107); POTASSIUM 4.2 MMOL/L (3.5-5.1); SODIUM 139 MMOL/L (136-145)
[2017-07-12] MEDS: Heparin 5000 units/ml inj SUBQ SCH ×2 (08:45→20:29)
[2017-07-12] MEDS: Dakin's 0.125% Soln (Quarter Strength) 16oz TOPIC SCH (08:46)
[2017-07-12] MEDS: Levemir Flexpen SUBQ SCH (09:10)
--- NOTE | 2017-07-12 11:14 | GI Progress Note ---
Assessment/Plan Problems: (1) ETOH abuse ICD Codes: F10.10 - Alcohol abuse, uncomplicated SNOMED: 03546445 (2) Failure to thrive SNOMED: 41709124 (3) GERD (gastroesophageal reflux disease) ICD Codes: K21.9 - GERD (gastroesophageal reflux disease) SNOMED: 326706250 (4) N&V (nausea and vomiting) ICD Codes: R11.2 - N&V (nausea and vomiting) SNOMED: 67431120 Status: stable Status Narrative Discussed with Dr. Zapata. Assessment/Plan SUMMARY OF FINDINGS: Diffuse gastritis, status post biopsy, otherwise normal upper endoscopic examination. RECOMMENDATIONS: iron panel stool OB will need out patient colonoscopy Subjective Gastrointestinal/Abdominal: Reports: no symptoms Objective Last 24 Hour Vital Signs Date Time Temp Pulse Resp B/P (MAP) Pulse Ox O2 Delivery O2 Flow Rate FiO2 07/12/17 08:00 97.2 75 18 138/83 98 97.2 07/12/17 04:00 97.8 71 17 135/79 98 97.8 07/12/17 00:00 Room Air 07/12/17 00:00 97.4 61 16 131/82 99 97.4 07/11/17 20:00 97.5 66 16 134/82 98 97.5 07/11/17 20:00 Room Air 07/11/17 12:00 97.4 68 20 127/73 97 97.4 Intake and Output 07/11/17 07/12/17 19:00 07:00 Intake Total 750 ml Output Total 650 ml Balance 750 ml -650 ml Intake Oral 750 ml Output Urine Total 650 ml # Voids 3 # Bowel Movements 2 1 Laboratory Tests Test 07/12/17 05:15 White Blood Count 6.2 K/UL (4.8-10.8) Red Blood Count 3.98 M/UL (4.70-6.10) L Hemoglobin 11.7 G/DL (14.2-18.0) L Hematocrit 33.2 % (42.0-52.0) L Mean Corpuscular Volume 83 FL (80-99) Mean Corpuscular Hemoglobin 29.4 PG (27.0-31.0) Mean Corpuscular Hemoglobin Concent 35.4 G/DL (32.0-36.0) Red Cell Distribution Width 11.6 % (11.6-14.8) Platelet Count 191 K/UL (150-450) Mean Platelet Volume 8.1 FL (6.5-10.1) Neutrophils (%) (Auto) 45.5 % (45.0-75.0) Lymphocytes (%) (Auto) 40.3 % (20.0-45.0) Monocytes (%) (Auto) 8.0 % (1.0-10.0) Eosinophils (%) (Auto) 5.2 % (0.0-3.0) H Basophils (%) (Auto) 1.1 % (0.0-2.0) Sodium Level 139 MMOL/L (136-145) Potassium Level 4.2 MMOL/L (3.5-5.1) Chloride Level 105 MMOL/L (98-107) Carbon Dioxide Level 25 MMOL/L (21-32) Anion Gap 9 mmol/L (5-15) Blood Urea Nitrogen 15 mg/dL (7-18) Creatinine 1.0 MG/DL (0.55-1.30) Estimat Glomerular Filtration Rate > 60 mL/min (>60) Glucose Level 175 MG/DL (74-106) H Calcium Level 8.4 MG/DL (8.5-10.1) L Height (Feet): 5 Height (Inches): 5.00 Weight (Pounds): 180 General Appearance: WD/WN, no apparent distress, alert Cardiovascular: normal rate Respiratory/Chest: normal breath sounds, no respiratory distress Abdominal Exam: normal bowel sounds, non tender, soft Extremities: non-tender Carol Ontiveros N.P. Jul 12, 2017 11:14
[2017-07-12] MEDS: metFORMIN 500mg tab ORAL SCH ×2 (11:37→16:39)
--- NOTE | 2017-07-12 12:34 | Internal Med Progress Note ---
Subjective Date of Service: Jul 12, 2017 Physician Name Speedy Wright Attending Physician Tello Fay MD Current Medications Medications (Trade) Dose Ordered Sig/Caden Route PRN Reason Start Time Stop Time Status Last Admin Dose Admin Clotrimazole (Lotrimin) 1 applic EVERY 12 HOURS TOPIC 06/14/17 15:30 07/14/17 15:29 07/12/17 08:46 Dextrose (Dextrose 50%) 25 ml STAT PRN IV Hypoglycemia 07/12/17 07:15 08/11/17 07:14 Dextrose (Dextrose 50%) 50 ml STAT PRN IV Hypoglycemia 07/12/17 07:15 08/11/17 07:14 Heparin Sodium (Porcine) (Heparin 5000 units/ml) 5,000 units EVERY 12 HOURS SUBQ 07/12/17 21:00 07/20/17 10:25 Insulin Aspart (NovoLOG) BEFORE MEALS AND HS SUBQ 06/20/17 12:45 07/20/17 12:44 07/12/17 11:36 Insulin Detemir (Levemir) 10 units DAILY SUBQ 07/12/17 09:00 08/11/17 08:59 07/12/17 09:10 Metformin HCl (Glucophage) 500 mg TIAC ORAL 07/12/17 11:30 08/11/17 11:29 07/12/17 11:37 Nateglinide (Starlix) 120 mg TIAC ORAL 07/12/17 11:30 08/09/17 11:29 07/12/17 11:37 Ondansetron HCl (Zofran) 4 mg Q4H PRN IVP Nausea & Vomiting 07/07/17 08:00 08/06/17 07:59 07/07/17 09:15 Sitagliptin Phosphate (Januvia) 50 mg ACBREAKFAST ORAL 07/11/17 08:00 08/10/17 07:59 07/12/17 05:55 Sodium Hypochlorite (Dakin's Quarter Strength) 1 applic DAILY TOPIC 06/28/17 09:00 07/28/17 08:59 07/12/17 08:46 Allergies: Coded Allergies: No Known Allergies (Unverified , 11/16/14) ROS Limited/Unobtainable: No Constitutional: Reports: no symptoms HEENT: Reports: no symptoms Cardiovascular: Reports: no symptoms Respiratory: Reports: no symptoms Gastrointestinal/Abdominal: Reports: no symptoms Genitourinary: Reports: no symptoms Neurologic/Psychiatric: Reports: no symptoms Subjective 66 YO M admitted with right foot cellulitis. Now osteomyelitis. Cover for Int [facility]-Dr Fay. Objective Last Vital Signs Date Time Temp Pulse Resp B/P (MAP) Pulse Ox O2 Delivery O2 Flow Rate FiO2 07/12/17 12:00 97.5 75 18 144/86 97 97.5 07/12/17 00:00 Room Air 07/08/17 12:30 6.0 Laboratory Tests Test 07/12/17 05:15 White Blood Count 6.2 K/UL (4.8-10.8) Red Blood Count 3.98 M/UL (4.70-6.10) L Hemoglobin 11.7 G/DL (14.2-18.0) L Hematocrit 33.2 % (42.0-52.0) L Mean Corpuscular Volume 83 FL (80-99) Mean Corpuscular Hemoglobin 29.4 PG (27.0-31.0) Mean Corpuscular Hemoglobin Concent 35.4 G/DL (32.0-36.0) Red Cell Distribution Width 11.6 % (11.6-14.8) Platelet Count 191 K/UL (150-450) Mean Platelet Volume 8.1 FL (6.5-10.1) Neutrophils (%) (Auto) 45.5 % (45.0-75.0) Lymphocytes (%) (Auto) 40.3 % (20.0-45.0) Monocytes (%) (Auto) 8.0 % (1.0-10.0) Eosinophils (%) (Auto) 5.2 % (0.0-3.0) H Basophils (%) (Auto) 1.1 % (0.0-2.0) Sodium Level 139 MMOL/L (136-145) Potassium Level 4.2 MMOL/L (3.5-5.1) Chloride Level 105 MMOL/L (98-107) Carbon Dioxide Level 25 MMOL/L (21-32) Anion Gap 9 mmol/L (5-15) Blood Urea Nitrogen 15 mg/dL (7-18) Creatinine 1.0 MG/DL (0.55-1.30) Estimat Glomerular Filtration Rate > 60 mL/min (>60) Glucose Level 175 MG/DL (74-106) H Calcium Level 8.4 MG/DL (8.5-10.1) L Intake and Output 07/11/17 07/12/17 19:00 07:00 Intake Total 750 ml Output Total 650 ml Balance 750 ml -650 ml Intake Oral 750 ml Output Urine Total 650 ml # Voids 3 # Bowel Movements 2 1 Objective Objective General: No acute distress, awake and alert HEENT: NCAT, sclera anicteric, PERRL, EOMI. Neck: Supple, no significant jugular venous distention, Lungs: Good inspiratory effort, clear to auscultation bilaterally, no Wheeze or Rales. Heart: Regular rate and rhythm, normal S1/S2, no murmur Abdomen: soft, nontender, nondistended. Normoactive bowel sounds. Extremities: No Cyanosis , clubbing or edema. Left LE BKA, Right foot dressing intact. Neuro: A&O x 3, Motor intact. Skin: warm, no rashes or lesions Psych: Normal mood and affect Assessment/Plan Problem List: (1) S/P BKA (below knee amputation) unilateral (2) Diabetes mellitus, type II Assessment & Plan: Continue levemir, humalog, starlix, glucophage and januvia (3) Hypercholesteremia (4) Cellulitis of right lower extremity (5) Ulcer of heel and midfoot (6) Osteomyelitis of ankle or foot, acute Assessment & Plan: Off antibiotic per ID (7) HTN (hypertension) Status: progressing SPEEDY WRIGHT Jul 12, 2017 12:34
--- NOTE | 2017-07-12 15:10 | Infectious Diseases Prog Note ---
Assessment/Plan Assessment/Plan The patient is a 66-year-old male with Coffee ground Emesis-?GIB -s/p EGD 07/08: Diffuse gastritis, status post biopsy, otherwise normal upper endoscopic examination. Low grade fever- possibly reactive to above- ; resolved, no PNA -CXR 07/07: No radiographic evidence of acute cardiopulmonary disease. Mild leukocytosis- posibly reactive Right foot cellulitis (resolved). right big toe. osteo , s/p Rx -MRI R foot: Findings suspicious for osteomyelitis of the distal aspect of the first distal phalanx -wound cx E.fecalis ([place] S), CoNS (likely represents colonizers) Fever, SP Normal white blood cells Influenza screening tests : Neg RP : 2.4 => 07/02 : 0.4 06/28 ESR : 74 => 07/02 : 31 Diabetes. Hyperlipidemia. Hypertension. Left BKA. History of alcohol abuse and smoking until recently. 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 PLAN: monitor pt off of IV AB Rx unless persistently febrile, new infiltrates in CXR and/or worsenign leukocytosis Clotrimazole topical If T>101, obtain 2 sets of Bcx - 07/01 SP IV vancomycin and Ceftriaxone and Flagyl ( abx d# 42/42 ) -05/24 SP Cefepime #4 Monitor CBC. Monitor BMP. Subjective Allergies: Coded Allergies: No Known Allergies (Unverified , 11/16/14) Subjective afebrile no leukocytosis off abx Objective Vital Signs Last 24 Hour Vital Signs Date Time Temp Pulse Resp B/P (MAP) Pulse Ox O2 Delivery O2 Flow Rate FiO2 07/12/17 12:00 97.5 75 18 144/86 97 97.5 07/12/17 08:00 97.2 75 18 138/83 98 97.2 07/12/17 04:00 97.8 71 17 135/79 98 97.8 07/12/17 00:00 Room Air 07/12/17 00:00 97.4 61 16 131/82 99 97.4 07/11/17 20:00 97.5 66 16 134/82 98 97.5 07/11/17 20:00 Room Air Height (Feet): 5 Height (Inches): 5.00 Weight (Pounds): 180 Objective General Appearance: WD/WN HEENT: normocephalic, atraumatic Respiratory/Chest: chest wall non-tender, lungs clear Breasts: no masses Cardiovascular: normal peripheral pulses, regular rhythm Abdomen: normal bowel sounds, soft, non tender Genitourinary: normal external genitalia Extremities: no cyanosis, aka Skin: extensive keratic lesions on leg Laboratory Tests Test 07/12/17 05:15 White Blood Count 6.2 K/UL (4.8-10.8) Red Blood Count 3.98 M/UL (4.70-6.10) L Hemoglobin 11.7 G/DL (14.2-18.0) L Hematocrit 33.2 % (42.0-52.0) L Mean Corpuscular Volume 83 FL (80-99) Mean Corpuscular Hemoglobin 29.4 PG (27.0-31.0) Mean Corpuscular Hemoglobin Concent 35.4 G/DL (32.0-36.0) Red Cell Distribution Width 11.6 % (11.6-14.8) Platelet Count 191 K/UL (150-450) Mean Platelet Volume 8.1 FL (6.5-10.1) Neutrophils (%) (Auto) 45.5 % (45.0-75.0) Lymphocytes (%) (Auto) 40.3 % (20.0-45.0) Monocytes (%) (Auto) 8.0 % (1.0-10.0) Eosinophils (%) (Auto) 5.2 % (0.0-3.0) H Basophils (%) (Auto) 1.1 % (0.0-2.0) Sodium Level 139 MMOL/L (136-145) Potassium Level 4.2 MMOL/L (3.5-5.1) Chloride Level 105 MMOL/L (98-107) Carbon Dioxide Level 25 MMOL/L (21-32) Anion Gap 9 mmol/L (5-15) Blood Urea Nitrogen 15 mg/dL (7-18) Creatinine 1.0 MG/DL (0.55-1.30) Estimat Glomerular Filtration Rate > 60 mL/min (>60) Glucose Level 175 MG/DL (74-106) H Calcium Level 8.4 MG/DL (8.5-10.1) L Current Medications Medications (Trade) Dose Ordered Sig/Caden Route PRN Reason Start Time Stop Time Status Last Admin Dose Admin Clotrimazole (Lotrimin) 1 applic EVERY 12 HOURS TOPIC 06/14/17 15:30 07/14/17 15:29 07/12/17 08:46 Dextrose (Dextrose 50%) 25 ml STAT PRN IV Hypoglycemia 07/12/17 07:15 08/11/17 07:14 Dextrose (Dextrose 50%) 50 ml STAT PRN IV Hypoglycemia 07/12/17 07:15 08/11/17 07:14 Heparin Sodium (Porcine) (Heparin 5000 units/ml) 5,000 units EVERY 12 HOURS SUBQ 07/12/17 21:00 07/20/17 10:25 Insulin Aspart (NovoLOG) BEFORE MEALS AND HS SUBQ 06/20/17 12:45 07/20/17 12:44 07/12/17 11:36 Insulin Detemir (Levemir) 10 units DAILY SUBQ 07/12/17 09:00 08/11/17 08:59 07/12/17 09:10 Metformin HCl (Glucophage) 500 mg TIAC ORAL 07/12/17 11:30 08/11/17 11:29 07/12/17 11:37 Nateglinide (Starlix) 120 mg TIAC ORAL 07/12/17 11:30 08/09/17 11:29 07/12/17 11:37 Ondansetron HCl (Zofran) 4 mg Q4H PRN IVP Nausea & Vomiting 07/07/17 08:00 08/06/17 07:59 07/07/17 09:15 Sitagliptin Phosphate (Januvia) 50 mg ACBREAKFAST ORAL 07/11/17 08:00 08/10/17 07:59 07/12/17 05:55 Sodium Hypochlorite (Dakin's Quarter Strength) 1 applic DAILY TOPIC 06/28/17 09:00 07/28/17 08:59 07/12/17 08:46 Dena Frank M.D. Jul 12, 2017 15:10
--- NOTE | 2017-07-12 15:13 | Pulmonology Progress Note ---
Assessment/Plan Problems: (1) Osteomyelitis of ankle or foot, acute (2) Cellulitis of right lower extremity (3) Ulcer of heel and midfoot (4) ETOH abuse (5) HTN (hypertension) (6) Diabetes (7) Anemia (8) S/P BKA (below knee amputation) Assessment/Plan doing great all reviewed no new events skin getting much better pt/ot reordered eating better, dc planning in process \ Subjective ROS Limited/Unobtainable: No Constitutional: Reports: no symptoms Allergies: Coded Allergies: No Known Allergies (Unverified , 11/16/14) Objective Last 24 Hour Vital Signs Date Time Temp Pulse Resp B/P (MAP) Pulse Ox O2 Delivery O2 Flow Rate FiO2 07/12/17 12:00 97.5 75 18 144/86 97 97.5 07/12/17 08:00 97.2 75 18 138/83 98 97.2 07/12/17 04:00 97.8 71 17 135/79 98 97.8 07/12/17 00:00 Room Air 07/12/17 00:00 97.4 61 16 131/82 99 97.4 07/11/17 20:00 97.5 66 16 134/82 98 97.5 07/11/17 20:00 Room Air Intake and Output 07/11/17 07/12/17 19:00 07:00 Intake Total 750 ml Output Total 650 ml Balance 750 ml -650 ml Intake Oral 750 ml Output Urine Total 650 ml # Voids 3 # Bowel Movements 2 1 Objective General Appearance: WD/WN HEENT: normocephalic, atraumatic Respiratory/Chest: chest wall non-tender, lungs clear Breasts: no masses Cardiovascular: normal peripheral pulses, regular rhythm Abdomen: normal bowel sounds, soft, non tender Genitourinary: normal external genitalia Extremities: no cyanosis, aka Skin: extensive keratic lesions on leg Laboratory Tests 07/12/17 05:15: White Blood Count 6.2, Red Blood Count 3.98L, Hemoglobin 11.7L, Hematocrit 33.2L , Mean Corpuscular Volume 83, Mean Corpuscular Hemoglobin 29.4, Mean Corpuscular Hemoglobin Concent 35.4, Red Cell Distribution Width 11.6, Platelet Count 191, Mean Platelet Volume 8.1, Neutrophils (%) (Auto) 45.5, Lymphocytes (% ) (Auto) 40.3, Monocytes (%) (Auto) 8.0, Eosinophils (%) (Auto) 5.2H, Basophils (%) (Auto) 1.1, Sodium Level 139, Potassium Level 4.2, Chloride Level 105, Carbon Dioxide Level 25, Anion Gap 9, Blood Urea Nitrogen 15, Creatinine 1.0, Estimat Glomerular Filtration Rate > 60, Glucose Level 175H, Calcium Level 8.4L Current Medications Medications (Trade) Dose Ordered Sig/Caden Route PRN Reason Start Time Stop Time Status Last Admin Dose Admin Clotrimazole (Lotrimin) 1 applic EVERY 12 HOURS TOPIC 06/14/17 15:30 07/14/17 15:29 07/12/17 08:46 Dextrose (Dextrose 50%) 25 ml STAT PRN IV Hypoglycemia 07/12/17 07:15 08/11/17 07:14 Dextrose (Dextrose 50%) 50 ml STAT PRN IV Hypoglycemia 07/12/17 07:15 08/11/17 07:14 Heparin Sodium (Porcine) (Heparin 5000 units/ml) 5,000 units EVERY 12 HOURS SUBQ 07/12/17 21:00 07/20/17 10:25 Insulin Aspart (NovoLOG) BEFORE MEALS AND HS SUBQ 06/20/17 12:45 07/20/17 12:44 07/12/17 11:36 Insulin Detemir (Levemir) 10 units DAILY SUBQ 07/12/17 09:00 08/11/17 08:59 07/12/17 09:10 Metformin HCl (Glucophage) 500 mg TIAC ORAL 07/12/17 11:30 08/11/17 11:29 07/12/17 11:37 Nateglinide (Starlix) 120 mg TIAC ORAL 07/12/17 11:30 08/09/17 11:29 07/12/17 11:37 Ondansetron HCl (Zofran) 4 mg Q4H PRN IVP Nausea & Vomiting 07/07/17 08:00 08/06/17 07:59 07/07/17 09:15 Sitagliptin Phosphate (Januvia) 50 mg ACBREAKFAST ORAL 07/11/17 08:00 08/10/17 07:59 07/12/17 05:55 Sodium Hypochlorite (Dakin's Quarter Strength) 1 applic DAILY TOPIC 06/28/17 09:00 07/28/17 08:59 07/12/17 08:46 Kyra Massey MD Jul 12, 2017 15:13
[2017-07-13 03:58] VITALS: BP 126/65
--- NOTE | 2017-07-13 06:18 | General Progress Note ---
Assessment/Plan Problem List: (1) Cellulitis of foot without toes ICD Codes: L03.119 - Cellulitis of unspecified part of limb SNOMED: 216398387 (2) Hyperlipidemia ICD Codes: E78.5 - Hyperlipidemia, unspecified SNOMED: 09380207 (3) Osteomyelitis ICD Codes: M86.9 - Osteomyelitis, unspecified SNOMED: 49132878 (4) Diabetes ICD Codes: E11.9 - Diabetes SNOMED: 48528983 (5) HTN (hypertension) ICD Codes: I10 - Essential (primary) hypertension SNOMED: 74387947 Assessment/Plan continue Januvia 50 mg daily continue Starlix 120 mg ac tid continue Metformin 500 mg tid continue Levemir 10 units qam continue NISS Subjective Allergies: Coded Allergies: No Known Allergies (Unverified , 11/16/14) All Systems: reviewed and negative except above Subjective events noted - interval notes reviewed BG values improved Objective Last 24 Hour Vital Signs Date Time Temp Pulse Resp B/P (MAP) Pulse Ox O2 Delivery O2 Flow Rate FiO2 07/13/17 03:58 98.2 82 20 126/65 100 Room Air 98.2 07/12/17 23:56 98.4 84 20 117/70 95 Room Air 98.4 07/12/17 19:51 97.7 20 20 133/81 97 Room Air 97.7 07/12/17 16:00 98.1 78 19 141/85 98 98.1 07/12/17 12:00 97.5 75 18 144/86 97 97.5 07/12/17 08:00 97.2 75 18 138/83 98 97.2 Intake and Output 07/12/17 07/13/17 19:00 07:00 Intake Total 450 ml Output Total 750 ml Balance -300 ml Intake Oral 450 ml Output Urine Total 750 ml # Voids 1 Height (Feet): 5 Height (Inches): 5.00 Weight (Pounds): 180 General Appearance: no apparent distress Neck: normal alignment Cardiovascular: normal rate Respiratory/Chest: decreased breath sounds Abdomen: normal bowel sounds Objective Current Medications Medications (Trade) Dose Ordered Sig/Caden Route PRN Reason Start Time Stop Time Status Last Admin Dose Admin Clotrimazole (Lotrimin) 1 applic EVERY 12 HOURS TOPIC 06/14/17 15:30 07/14/17 15:29 07/12/17 20:30 Dextrose (Dextrose 50%) 25 ml STAT PRN IV Hypoglycemia 07/12/17 07:15 08/11/17 07:14 Dextrose (Dextrose 50%) 50 ml STAT PRN IV Hypoglycemia 07/12/17 07:15 08/11/17 07:14 Heparin Sodium (Porcine) (Heparin 5000 units/ml) 5,000 units EVERY 12 HOURS SUBQ 07/12/17 21:00 07/20/17 10:25 07/12/17 20:29 Insulin Aspart (NovoLOG) BEFORE MEALS AND HS SUBQ 06/20/17 12:45 07/20/17 12:44 07/12/17 20:28 Insulin Detemir (Levemir) 10 units DAILY SUBQ 07/12/17 09:00 08/11/17 08:59 07/12/17 09:10 Metformin HCl (Glucophage) 500 mg TIAC ORAL 07/12/17 11:30 08/11/17 11:29 07/12/17 16:39 Nateglinide (Starlix) 120 mg TIAC ORAL 07/12/17 11:30 08/09/17 11:29 07/12/17 16:39 Ondansetron HCl (Zofran) 4 mg Q4H PRN IVP Nausea & Vomiting 07/07/17 08:00 08/06/17 07:59 07/07/17 09:15 Sitagliptin Phosphate (Januvia) 50 mg ACBREAKFAST ORAL 07/11/17 08:00 08/10/17 07:59 07/12/17 05:55 Sodium Hypochlorite (Dakin's Quarter Strength) 1 applic DAILY TOPIC 06/28/17 09:00 07/28/17 08:59 07/12/17 08:46 Item Value Date Time Bedside Blood Glucose 189 mg/dl H 07/12/178 Bedside Blood Glucose 187 mg/dl H 07/12/17 1639 Bedside Blood Glucose 169 mg/dl H 07/12/17 1140 Bedside Blood Glucose 169 mg/dl H 07/12/17 0910 Bedside Blood Glucose 169 mg/dl H 07/12/17 0633 AUBREY LEWIS July 13, 2017 06:18
[2017-07-13] MEDS: sitaGLIPtin 50mg tab ORAL SCH (06:30)
[2017-07-13] MEDS: metFORMIN 500mg tab ORAL SCH ×3 (06:30→16:53)
[2017-07-13] MEDS: NovoLOG Insulin Flexpen SUBQ SCH ×4 (06:31→21:21)
[2017-07-13 07:05] LABS: BASOPHILS % (AUTO) 0.8 % (0.0-2.0); EOSINOPHILS % (AUTO) 3.1 % (0.0-3.0); HEMATOCRIT 32.4 % (42.0-52.0); HEMOGLOBIN 11.4 G/DL (14.2-18.0); LYMPHOCYTES % (AUTO) 29.2 % (20.0-45.0); MEAN CORPUSCULAR VOLUME 82 FL (80-99); MONOCYTES % (AUTO) 9.4 % (1.0-10.0); NEUTROPHILS % (AUTO) 57.5 % (45.0-75.0); PLATELET COUNT 207 K/UL (150-450); RED BLOOD COUNT 3.94 M/UL (4.70-6.10); RED CELL DISTRIBUTION WIDTH 11.4 % (11.6-14.8); WHITE BLOOD COUNT 7.7 K/UL (4.8-10.8)
[2017-07-13 07:21] LABS: ANION GAP 9 mmol/L (5-15); BLOOD UREA NITROGEN 20 mg/dL (7-18); CALCIUM 8.6 MG/DL (8.5-10.1); CARBON DIOXIDE 26 MMOL/L (21-32); CHLORIDE 104 MMOL/L (98-107); CREATININE 1.3 MG/DL (0.55-1.30); POTASSIUM 3.9 MMOL/L (3.5-5.1); SODIUM 139 MMOL/L (136-145)
[2017-07-13 08:00] VITALS: BP 101/61
[2017-07-13] MEDS: Dakin's 0.125% Soln (Quarter Strength) 16oz TOPIC SCH (08:48)
[2017-07-13] MEDS: Heparin 5000 units/ml inj SUBQ SCH ×2 (08:49→21:22)
[2017-07-13] MEDS: Levemir Flexpen SUBQ SCH (08:50)
[2017-07-13 12:00] VITALS: BP 102/70
--- NOTE | 2017-07-13 12:16 | Infectious Diseases Prog Note ---
Assessment/Plan Assessment/Plan The patient is a 66-year-old male with Coffee ground Emesis-?GIB -s/p EGD 07/08: Diffuse gastritis, status post biopsy, otherwise normal upper endoscopic examination. Low grade fever- possibly reactive to above- ; resolved, no PNA -CXR 07/07: No radiographic evidence of acute cardiopulmonary disease. Mild leukocytosis- posibly reactive Right foot cellulitis (resolved). right big toe. osteo , s/p Rx -MRI R foot: Findings suspicious for osteomyelitis of the distal aspect of the first distal phalanx -wound cx E.fecalis ([place] S), CoNS (likely represents colonizers) Fever, SP Normal white blood cells Influenza screening tests : Neg RP : 2.4 => 07/02 : 0.4 06/28 ESR : 74 => 07/02 : 31 Diabetes. Hyperlipidemia. Hypertension. Left BKA. History of alcohol abuse and smoking until recently. 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 PLAN: monitor pt off of IV AB Rx unless persistently febrile, new infiltrates in CXR and/or worsenign leukocytosis Clotrimazole topical If T>101, obtain 2 sets of Bcx - 07/01 SP IV vancomycin and Ceftriaxone and Flagyl ( abx d# 42/42 ) -05/24 SP Cefepime #4 Monitor CBC. Monitor BMP. Subjective Allergies: Coded Allergies: No Known Allergies (Unverified , 11/16/14) Subjective afebrile no leukocytosis off abx Objective Vital Signs Last 24 Hour Vital Signs Date Time Temp Pulse Resp B/P (MAP) Pulse Ox O2 Delivery O2 Flow Rate FiO2 07/13/17 08:00 98.2 80 20 101/61 96 98.2 07/13/17 03:58 98.2 82 20 126/65 100 Room Air 98.2 07/12/17 23:56 98.4 84 20 117/70 95 Room Air 98.4 07/12/17 19:51 97.7 20 20 133/81 97 Room Air 97.7 07/12/17 16:00 98.1 78 19 141/85 98 98.1 Height (Feet): 5 Height (Inches): 5.00 Weight (Pounds): 180 Objective General Appearance: WD/WN HEENT: normocephalic, atraumatic Respiratory/Chest: chest wall non-tender, lungs clear Breasts: no masses Cardiovascular: normal peripheral pulses, regular rhythm Abdomen: normal bowel sounds, soft, non tender Genitourinary: normal external genitalia Extremities: no cyanosis, aka Skin: extensive keratic lesions on leg Laboratory Tests Test 07/13/17 05:50 White Blood Count 7.7 K/UL (4.8-10.8) Red Blood Count 3.94 M/UL (4.70-6.10) L Hemoglobin 11.4 G/DL (14.2-18.0) L Hematocrit 32.4 % (42.0-52.0) L Mean Corpuscular Volume 82 FL (80-99) Mean Corpuscular Hemoglobin 28.9 PG (27.0-31.0) Mean Corpuscular Hemoglobin Concent 35.2 G/DL (32.0-36.0) Red Cell Distribution Width 11.4 % (11.6-14.8) L Platelet Count 207 K/UL (150-450) Mean Platelet Volume 9.4 FL (6.5-10.1) Neutrophils (%) (Auto) 57.5 % (45.0-75.0) Lymphocytes (%) (Auto) 29.2 % (20.0-45.0) Monocytes (%) (Auto) 9.4 % (1.0-10.0) Eosinophils (%) (Auto) 3.1 % (0.0-3.0) H Basophils (%) (Auto) 0.8 % (0.0-2.0) Sodium Level 139 MMOL/L (136-145) Potassium Level 3.9 MMOL/L (3.5-5.1) Chloride Level 104 MMOL/L (98-107) Carbon Dioxide Level 26 MMOL/L (21-32) Anion Gap 9 mmol/L (5-15) Blood Urea Nitrogen 20 mg/dL (7-18) H Creatinine 1.3 MG/DL (0.55-1.30) Estimat Glomerular Filtration Rate 55.1 mL/min (>60) Glucose Level 175 MG/DL (74-106) H Calcium Level 8.6 MG/DL (8.5-10.1) Current Medications Medications (Trade) Dose Ordered Sig/Caden Route PRN Reason Start Time Stop Time Status Last Admin Dose Admin Clotrimazole (Lotrimin) 1 applic EVERY 12 HOURS TOPIC 06/14/17 15:30 07/14/17 15:29 07/13/17 08:48 Dextrose (Dextrose 50%) 25 ml STAT PRN IV Hypoglycemia 07/12/17 07:15 08/11/17 07:14 Dextrose (Dextrose 50%) 50 ml STAT PRN IV Hypoglycemia 07/12/17 07:15 08/11/17 07:14 Heparin Sodium (Porcine) (Heparin 5000 units/ml) 5,000 units EVERY 12 HOURS SUBQ 07/12/17 21:00 07/20/17 10:25 07/13/17 08:49 Insulin Aspart (NovoLOG) BEFORE MEALS AND HS SUBQ 06/20/17 12:45 07/20/17 12:44 07/13/17 06:31 Insulin Detemir (Levemir) 10 units DAILY SUBQ 07/12/17 09:00 08/11/17 08:59 07/13/17 08:50 Metformin HCl (Glucophage) 500 mg TIAC ORAL 07/12/17 11:30 08/11/17 11:29 07/13/17 11:46 Nateglinide (Starlix) 120 mg TIAC ORAL 07/12/17 11:30 08/09/17 11:29 07/13/17 11:46 Ondansetron HCl (Zofran) 4 mg Q4H PRN IVP Nausea & Vomiting 07/07/17 08:00 08/06/17 07:59 07/07/17 09:15 Sitagliptin Phosphate (Januvia) 50 mg ACBREAKFAST ORAL 07/11/17 08:00 08/10/17 07:59 07/13/17 06:30 Sodium Hypochlorite (Dakin's Quarter Strength) 1 applic DAILY TOPIC 06/28/17 09:00 07/28/17 08:59 07/13/17 08:48 Dena Frank M.D. July 13, 2017 12:16
--- NOTE | 2017-07-13 15:11 | Pulmonology Progress Note ---
Assessment/Plan Problems: (1) Osteomyelitis of ankle or foot, acute (2) Cellulitis of right lower extremity (3) Ulcer of heel and midfoot (4) ETOH abuse (5) HTN (hypertension) (6) Diabetes (7) Anemia (8) S/P BKA (below knee amputation) Assessment/Plan doing great all reviewed no new events skin getting much better pt/ot reordered eating better, dc planning in process \ Subjective ROS Limited/Unobtainable: No Constitutional: Reports: no symptoms HEENT: Repors: no symptoms Respiratory: Reports: no symptoms Allergies: Coded Allergies: No Known Allergies (Unverified , 11/16/14) Objective Last 24 Hour Vital Signs Date Time Temp Pulse Resp B/P (MAP) Pulse Ox O2 Delivery O2 Flow Rate FiO2 07/13/17 12:00 98.6 82 20 102/70 96 98.6 07/13/17 08:00 98.2 80 20 101/61 96 98.2 07/13/17 03:58 98.2 82 20 126/65 100 Room Air 98.2 07/12/17 23:56 98.4 84 20 117/70 95 Room Air 98.4 07/12/17 19:51 97.7 20 20 133/81 97 Room Air 97.7 07/12/17 16:00 98.1 78 19 141/85 98 98.1 Intake and Output 07/12/17 07/13/17 19:00 07:00 Intake Total 450 ml Output Total 750 ml Balance -300 ml Intake Oral 450 ml Output Urine Total 750 ml # Voids 1 4 # Bowel Movements 2 Objective General Appearance: WD/WN HEENT: normocephalic, atraumatic Respiratory/Chest: chest wall non-tender, lungs clear Breasts: no masses Cardiovascular: normal peripheral pulses, regular rhythm Abdomen: normal bowel sounds, soft, non tender Genitourinary: normal external genitalia Extremities: no cyanosis, aka Skin: extensive keratic lesions on leg Laboratory Tests 07/13/17 05:50: White Blood Count 7.7, Red Blood Count 3.94L, Hemoglobin 11.4L, Hematocrit 32.4L , Mean Corpuscular Volume 82, Mean Corpuscular Hemoglobin 28.9, Mean Corpuscular Hemoglobin Concent 35.2, Red Cell Distribution Width 11.4L, Platelet Count 207, Mean Platelet Volume 9.4, Neutrophils (%) (Auto) 57.5, Lymphocytes (%) (Auto) 29.2, Monocytes (%) (Auto) 9.4, Eosinophils (%) (Auto) 3.1H, Basophils (%) (Auto) 0.8, Sodium Level 139, Potassium Level 3.9, Chloride Level 104, Carbon Dioxide Level 26, Anion Gap 9, Blood Urea Nitrogen 20H, Creatinine 1.3, Estimat Glomerular Filtration Rate 55.1, Glucose Level 175H, Calcium Level 8.6 Current Medications Medications (Trade) Dose Ordered Sig/Caden Route PRN Reason Start Time Stop Time Status Last Admin Dose Admin Clotrimazole (Lotrimin) 1 applic EVERY 12 HOURS TOPIC 06/14/17 15:30 07/14/17 15:29 07/13/17 08:48 Dextrose (Dextrose 50%) 25 ml STAT PRN IV Hypoglycemia 07/12/17 07:15 08/11/17 07:14 Dextrose (Dextrose 50%) 50 ml STAT PRN IV Hypoglycemia 07/12/17 07:15 08/11/17 07:14 Heparin Sodium (Porcine) (Heparin 5000 units/ml) 5,000 units EVERY 12 HOURS SUBQ 07/12/17 21:00 07/20/17 10:25 07/13/17 08:49 Insulin Aspart (NovoLOG) BEFORE MEALS AND HS SUBQ 06/20/17 12:45 07/20/17 12:44 07/13/17 12:17 Insulin Detemir (Levemir) 10 units DAILY SUBQ 07/12/17 09:00 08/11/17 08:59 07/13/17 08:50 Metformin HCl (Glucophage) 500 mg TIAC ORAL 07/12/17 11:30 08/11/17 11:29 07/13/17 11:46 Nateglinide (Starlix) 120 mg TIAC ORAL 07/12/17 11:30 08/09/17 11:29 07/13/17 11:46 Ondansetron HCl (Zofran) 4 mg Q4H PRN IVP Nausea & Vomiting 07/07/17 08:00 08/06/17 07:59 07/07/17 09:15 Sitagliptin Phosphate (Januvia) 50 mg ACBREAKFAST ORAL 07/11/17 08:00 08/10/17 07:59 07/13/17 06:30 Sodium Hypochlorite (Dakin's Quarter Strength) 1 applic DAILY TOPIC 06/28/17 09:00 07/28/17 08:59 07/13/17 08:48 Kyra Massey MD July 13, 2017 15:11
--- NOTE | 2017-07-13 15:33 | GI Progress Note ---
Assessment/Plan Problems: (1) ETOH abuse ICD Codes: F10.10 - Alcohol abuse, uncomplicated SNOMED: 53872160 (2) Failure to thrive SNOMED: 32428248 (3) GERD (gastroesophageal reflux disease) ICD Codes: K21.9 - GERD (gastroesophageal reflux disease) SNOMED: 842286655 (4) N&V (nausea and vomiting) ICD Codes: R11.2 - N&V (nausea and vomiting) SNOMED: 90866187 Status: unchanged Status Narrative Discussed with Dr. Zapata. Assessment/Plan SUMMARY OF FINDINGS: Diffuse gastritis, status post biopsy, otherwise normal upper endoscopic examination. RECOMMENDATIONS: iron panel stool OB will need out patient colonoscopy Subjective Subjective limited Objective Last 24 Hour Vital Signs Date Time Temp Pulse Resp B/P (MAP) Pulse Ox O2 Delivery O2 Flow Rate FiO2 07/13/17 12:00 98.6 82 20 102/70 96 98.6 07/13/17 08:00 98.2 80 20 101/61 96 98.2 07/13/17 03:58 98.2 82 20 126/65 100 Room Air 98.2 07/12/17 23:56 98.4 84 20 117/70 95 Room Air 98.4 07/12/17 19:51 97.7 20 20 133/81 97 Room Air 97.7 07/12/17 16:00 98.1 78 19 141/85 98 98.1 Intake and Output 07/12/17 07/13/17 19:00 07:00 Intake Total 450 ml Output Total 750 ml Balance -300 ml Intake Oral 450 ml Output Urine Total 750 ml # Voids 1 4 # Bowel Movements 2 Laboratory Tests Test 07/13/17 05:50 White Blood Count 7.7 K/UL (4.8-10.8) Red Blood Count 3.94 M/UL (4.70-6.10) L Hemoglobin 11.4 G/DL (14.2-18.0) L Hematocrit 32.4 % (42.0-52.0) L Mean Corpuscular Volume 82 FL (80-99) Mean Corpuscular Hemoglobin 28.9 PG (27.0-31.0) Mean Corpuscular Hemoglobin Concent 35.2 G/DL (32.0-36.0) Red Cell Distribution Width 11.4 % (11.6-14.8) L Platelet Count 207 K/UL (150-450) Mean Platelet Volume 9.4 FL (6.5-10.1) Neutrophils (%) (Auto) 57.5 % (45.0-75.0) Lymphocytes (%) (Auto) 29.2 % (20.0-45.0) Monocytes (%) (Auto) 9.4 % (1.0-10.0) Eosinophils (%) (Auto) 3.1 % (0.0-3.0) H Basophils (%) (Auto) 0.8 % (0.0-2.0) Sodium Level 139 MMOL/L (136-145) Potassium Level 3.9 MMOL/L (3.5-5.1) Chloride Level 104 MMOL/L (98-107) Carbon Dioxide Level 26 MMOL/L (21-32) Anion Gap 9 mmol/L (5-15) Blood Urea Nitrogen 20 mg/dL (7-18) H Creatinine 1.3 MG/DL (0.55-1.30) Estimat Glomerular Filtration Rate 55.1 mL/min (>60) Glucose Level 175 MG/DL (74-106) H Calcium Level 8.6 MG/DL (8.5-10.1) Height (Feet): 5 Height (Inches): 5.00 Weight (Pounds): 180 General Appearance: no apparent distress, alert Cardiovascular: normal rate Respiratory/Chest: normal breath sounds Abdominal Exam: normal bowel sounds, non tender, soft Carol Ontiveros N.P. July 13, 2017 15:32
[2017-07-13 16:00] VITALS: BP 119/78
--- NOTE | 2017-07-13 17:45 | Internal Med Progress Note ---
Subjective Date of Service: July 13, 2017 Physician Name Daniel Wright Attending Physician Tello Fay MD Current Medications Medications (Trade) Dose Ordered Sig/Caden Route PRN Reason Start Time Stop Time Status Last Admin Dose Admin Clotrimazole (Lotrimin) 1 applic EVERY 12 HOURS TOPIC 06/14/17 15:30 07/14/17 15:29 07/13/17 08:48 Dextrose (Dextrose 50%) 25 ml STAT PRN IV Hypoglycemia 07/12/17 07:15 08/11/17 07:14 Dextrose (Dextrose 50%) 50 ml STAT PRN IV Hypoglycemia 07/12/17 07:15 08/11/17 07:14 Heparin Sodium (Porcine) (Heparin 5000 units/ml) 5,000 units EVERY 12 HOURS SUBQ 07/12/17 21:00 07/20/17 10:25 07/13/17 08:49 Insulin Aspart (NovoLOG) BEFORE MEALS AND HS SUBQ 06/20/17 12:45 07/20/17 12:44 07/13/17 16:50 Insulin Detemir (Levemir) 10 units DAILY SUBQ 07/12/17 09:00 08/11/17 08:59 07/13/17 08:50 Metformin HCl (Glucophage) 500 mg TIAC ORAL 07/12/17 11:30 08/11/17 11:29 07/13/17 16:53 Nateglinide (Starlix) 120 mg TIAC ORAL 07/12/17 11:30 08/09/17 11:29 07/13/17 16:53 Ondansetron HCl (Zofran) 4 mg Q4H PRN IVP Nausea & Vomiting 07/07/17 08:00 08/06/17 07:59 07/07/17 09:15 Sitagliptin Phosphate (Januvia) 50 mg ACBREAKFAST ORAL 07/11/17 08:00 08/10/17 07:59 07/13/17 06:30 Sodium Hypochlorite (Dakin's Quarter Strength) 1 applic DAILY TOPIC 06/28/17 09:00 07/28/17 08:59 07/13/17 08:48 Allergies: Coded Allergies: No Known Allergies (Unverified , 11/16/14) ROS Limited/Unobtainable: No Constitutional: Reports: no symptoms HEENT: Reports: no symptoms Cardiovascular: Reports: no symptoms Respiratory: Reports: no symptoms Gastrointestinal/Abdominal: Reports: no symptoms Genitourinary: Reports: no symptoms Neurologic/Psychiatric: Reports: no symptoms Subjective 66 YO M admitted with right foot cellulitis. Now osteomyelitis. Cover for Int Med-Dr Fay. Objective Last Vital Signs Date Time Temp Pulse Resp B/P (MAP) Pulse Ox O2 Delivery O2 Flow Rate FiO2 07/13/17 16:00 98.0 93 20 119/78 96 98.0 07/13/17 03:58 Room Air 07/08/17 12:30 6.0 Laboratory Tests Test 07/13/17 05:50 White Blood Count 7.7 K/UL (4.8-10.8) Red Blood Count 3.94 M/UL (4.70-6.10) L Hemoglobin 11.4 G/DL (14.2-18.0) L Hematocrit 32.4 % (42.0-52.0) L Mean Corpuscular Volume 82 FL (80-99) Mean Corpuscular Hemoglobin 28.9 PG (27.0-31.0) Mean Corpuscular Hemoglobin Concent 35.2 G/DL (32.0-36.0) Red Cell Distribution Width 11.4 % (11.6-14.8) L Platelet Count 207 K/UL (150-450) Mean Platelet Volume 9.4 FL (6.5-10.1) Neutrophils (%) (Auto) 57.5 % (45.0-75.0) Lymphocytes (%) (Auto) 29.2 % (20.0-45.0) Monocytes (%) (Auto) 9.4 % (1.0-10.0) Eosinophils (%) (Auto) 3.1 % (0.0-3.0) H Basophils (%) (Auto) 0.8 % (0.0-2.0) Sodium Level 139 MMOL/L (136-145) Potassium Level 3.9 MMOL/L (3.5-5.1) Chloride Level 104 MMOL/L (98-107) Carbon Dioxide Level 26 MMOL/L (21-32) Anion Gap 9 mmol/L (5-15) Blood Urea Nitrogen 20 mg/dL (7-18) H Creatinine 1.3 MG/DL (0.55-1.30) Estimat Glomerular Filtration Rate 55.1 mL/min (>60) Glucose Level 175 MG/DL (74-106) H Calcium Level 8.6 MG/DL (8.5-10.1) Intake and Output 07/12/17 07/13/17 19:00 07:00 Intake Total 450 ml Output Total 750 ml Balance -300 ml Intake Oral 450 ml Output Urine Total 750 ml # Voids 1 4 # Bowel Movements 2 Objective Objective General: No acute distress, awake and alert HEENT: NCAT, sclera anicteric, PERRL, EOMI. Neck: Supple, no significant jugular venous distention, Lungs: Good inspiratory effort, clear to auscultation bilaterally, no Wheeze or Rales. Heart: Regular rate and rhythm, normal S1/S2, no murmur Abdomen: soft, nontender, nondistended. Normoactive bowel sounds. Extremities: No Cyanosis , clubbing or edema. Left LE BKA, Right foot dressing intact. Neuro: A&O x 3, Motor intact. Skin: warm, no rashes or lesions Psych: Normal mood and affect Assessment/Plan Problem List: (1) S/P BKA (below knee amputation) unilateral (2) Diabetes mellitus, type II Assessment & Plan: Continue levemir, humalog, starlix, glucophage and januvia (3) Hypercholesteremia (4) Cellulitis of right lower extremity Assessment & Plan: 1st distal phalanx-see ID note. monitor off antibiotic (5) Ulcer of heel and midfoot (6) Osteomyelitis of ankle or foot, acute Assessment & Plan: Off antibiotic per ID (7) HTN (hypertension) (8) Gastritis Assessment & Plan: Protonix (9) Hemorrhage of gastrointestinal tract Assessment & Plan: S/P EGD on 07/08/17-see GI note. Status: stable DANIEL WRIGHT July 13, 2017 17:45
[2017-07-13 20:00] VITALS: BP 123/76
[2017-07-14 00:29] VITALS: BP 125/71
[2017-07-14 04:00] VITALS: BP 131/80
[2017-07-14] MEDS: sitaGLIPtin 50mg tab ORAL SCH (05:22)
[2017-07-14] MEDS: metFORMIN 500mg tab ORAL SCH ×3 (05:23→16:19)
[2017-07-14] MEDS: NovoLOG Insulin Flexpen SUBQ SCH ×4 (06:10→20:46)
--- NOTE | 2017-07-14 06:48 | General Progress Note ---
Assessment/Plan Problem List: (1) Cellulitis of foot without toes ICD Codes: L03.119 - Cellulitis of unspecified part of limb SNOMED: 824751382 (2) Hyperlipidemia ICD Codes: E78.5 - Hyperlipidemia, unspecified SNOMED: 71801023 (3) Osteomyelitis ICD Codes: M86.9 - Osteomyelitis, unspecified SNOMED: 63955221 (4) Diabetes ICD Codes: E11.9 - Diabetes SNOMED: 75164599 (5) HTN (hypertension) ICD Codes: I10 - Essential (primary) hypertension SNOMED: 03199842 Assessment/Plan continue Januvia 50 mg daily continue Starlix 120 mg ac tid continue Metformin 500 mg tid continue Levemir 10 units qam continue NISS Subjective Allergies: Coded Allergies: No Known Allergies (Unverified , 11/16/14) All Systems: reviewed and negative except above Subjective events noted - interval notes reviewed BG values are controlled Objective Last 24 Hour Vital Signs Date Time Temp Pulse Resp B/P (MAP) Pulse Ox O2 Delivery O2 Flow Rate FiO2 07/14/17 04:00 98.2 93 18 131/80 96 98.2 07/14/17 00:29 98.1 88 17 125/71 96 98.1 07/13/17 20:00 98.0 95 16 123/76 96 98.0 07/13/17 16:00 98.0 93 20 119/78 96 98.0 07/13/17 12:00 98.6 82 20 102/70 96 98.6 07/13/17 08:00 98.2 80 20 101/61 96 98.2 Intake and Output 07/13/17 07/14/17 19:00 07:00 Intake Total 800 ml 360 ml Balance 800 ml 360 ml Intake Oral 800 ml 360 ml # Voids 2 1 # Bowel Movements 1 3 Height (Feet): 5 Height (Inches): 5.00 Weight (Pounds): 180 General Appearance: no apparent distress Neck: normal alignment Cardiovascular: normal peripheral pulses Respiratory/Chest: chest wall non-tender Abdomen: normal bowel sounds Pelvis: normal external exam Objective Current Medications Medications (Trade) Dose Ordered Sig/Caden Route PRN Reason Start Time Stop Time Status Last Admin Dose Admin Clotrimazole (Lotrimin) 1 applic EVERY 12 HOURS TOPIC 06/14/17 15:30 07/14/17 15:29 07/13/17 21:19 Dextrose (Dextrose 50%) 25 ml STAT PRN IV Hypoglycemia 07/12/17 07:15 08/11/17 07:14 Dextrose (Dextrose 50%) 50 ml STAT PRN IV Hypoglycemia 07/12/17 07:15 08/11/17 07:14 Heparin Sodium (Porcine) (Heparin 5000 units/ml) 5,000 units EVERY 12 HOURS SUBQ 07/12/17 21:00 07/20/17 10:25 07/13/17 21:22 Insulin Aspart (NovoLOG) BEFORE MEALS AND HS SUBQ 06/20/17 12:45 07/20/17 12:44 07/14/17 06:10 Insulin Detemir (Levemir) 10 units DAILY SUBQ 07/12/17 09:00 08/11/17 08:59 07/13/17 08:50 Metformin HCl (Glucophage) 500 mg TIAC ORAL 07/12/17 11:30 08/11/17 11:29 07/14/17 05:23 Nateglinide (Starlix) 120 mg TIAC ORAL 07/12/17 11:30 08/09/17 11:29 07/14/17 05:22 Ondansetron HCl (Zofran) 4 mg Q4H PRN IVP Nausea & Vomiting 07/07/17 08:00 08/06/17 07:59 07/07/17 09:15 Pantoprazole (Protonix) 40 mg ACBREAKFAST ORAL 07/14/17 06:30 08/13/17 06:29 07/14/17 06:08 Sitagliptin Phosphate (Januvia) 50 mg ACBREAKFAST ORAL 07/11/17 08:00 08/10/17 07:59 07/14/17 05:22 Sodium Hypochlorite (Dakin's Quarter Strength) 1 applic DAILY TOPIC 06/28/17 09:00 07/28/17 08:59 07/13/17 08:48 Item Value Date Time Bedside Blood Glucose 116 mg/dl 07/14/17 0610 Bedside Blood Glucose 124 mg/dl H 07/13/17 2121 Bedside Blood Glucose 119 mg/dl 07/13/17 1650 Bedside Blood Glucose 111 mg/dl 07/13/17 1217 Bedside Blood Glucose 153 mg/dl H 07/13/17 0850 Bedside Blood Glucose 153 mg/dl H 07/13/17 0631 AUBREY LEWIS July 14, 2017 06:48
[2017-07-14 08:00] VITALS: BP 112/65
[2017-07-14 08:01] LABS: HEMATOCRIT 33.7 % (42.0-52.0); HEMOGLOBIN 11.7 G/DL (14.2-18.0); LYMPHOCYTES % (AUTO) 25.7 % (20.0-45.0); MEAN CORPUSCULAR VOLUME 83 FL (80-99); MONOCYTES % (AUTO) 11.4 % (1.0-10.0); PLATELET COUNT 221 K/UL (150-450); RED BLOOD COUNT 4.04 M/UL (4.70-6.10); RED CELL DISTRIBUTION WIDTH 11.5 % (11.6-14.8); WHITE BLOOD COUNT 8.7 K/UL (4.8-10.8)
[2017-07-14 08:27] LABS: ANION GAP 10 mmol/L (5-15); BLOOD UREA NITROGEN 21 mg/dL (7-18); CALCIUM 8.3 MG/DL (8.5-10.1); CARBON DIOXIDE 25 MMOL/L (21-32); CHLORIDE 105 MMOL/L (98-107); CREATININE 1.2 MG/DL (0.55-1.30); PHOSPHORUS 3.8 MG/DL (2.5-4.9); POTASSIUM 3.3 MMOL/L (3.5-5.1); SODIUM 140 MMOL/L (136-145)
[2017-07-14] MEDS: Heparin 5000 units/ml inj SUBQ SCH ×2 (09:50→20:46)
[2017-07-14] MEDS: Levemir Flexpen SUBQ SCH (09:54)
[2017-07-14] MEDS: Dakin's 0.125% Soln (Quarter Strength) 16oz TOPIC SCH (10:13)
--- NOTE | 2017-07-14 11:29 | Internal Med Progress Note ---
Subjective Date of Service: July 14, 2017 Physician Name Speedy Wright Attending Physician Tello Fay MD Current Medications Medications (Trade) Dose Ordered Sig/Caden Route PRN Reason Start Time Stop Time Status Last Admin Dose Admin Clotrimazole (Lotrimin) 1 applic EVERY 12 HOURS TOPIC 06/14/17 15:30 07/14/17 15:29 07/14/17 10:13 Dextrose (Dextrose 50%) 25 ml STAT PRN IV Hypoglycemia 07/12/17 07:15 08/11/17 07:14 Dextrose (Dextrose 50%) 50 ml STAT PRN IV Hypoglycemia 07/12/17 07:15 08/11/17 07:14 Heparin Sodium (Porcine) (Heparin 5000 units/ml) 5,000 units EVERY 12 HOURS SUBQ 07/12/17 21:00 07/20/17 10:25 07/14/17 09:50 Insulin Aspart (NovoLOG) BEFORE MEALS AND HS SUBQ 06/20/17 12:45 07/20/17 12:44 07/14/17 06:10 Insulin Detemir (Levemir) 10 units DAILY SUBQ 07/12/17 09:00 08/11/17 08:59 07/14/17 09:54 Metformin HCl (Glucophage) 500 mg TIAC ORAL 07/12/17 11:30 08/11/17 11:29 07/14/17 05:23 Nateglinide (Starlix) 120 mg TIAC ORAL 07/12/17 11:30 08/09/17 11:29 07/14/17 05:22 Ondansetron HCl (Zofran) 4 mg Q4H PRN IVP Nausea & Vomiting 07/07/17 08:00 08/06/17 07:59 07/07/17 09:15 Pantoprazole (Protonix) 40 mg ACBREAKFAST ORAL 07/14/17 06:30 08/13/17 06:29 07/14/17 06:08 Sitagliptin Phosphate (Januvia) 50 mg ACBREAKFAST ORAL 07/11/17 08:00 08/10/17 07:59 07/14/17 05:22 Sodium Hypochlorite (Dakin's Quarter Strength) 1 applic DAILY TOPIC 06/28/17 09:00 07/28/17 08:59 07/14/17 10:13 Allergies: Coded Allergies: No Known Allergies (Unverified , 11/16/14) ROS Limited/Unobtainable: No Constitutional: Reports: no symptoms HEENT: Reports: no symptoms Cardiovascular: Reports: no symptoms Respiratory: Reports: no symptoms Gastrointestinal/Abdominal: Reports: no symptoms Genitourinary: Reports: no symptoms Neurologic/Psychiatric: Reports: no symptoms Subjective 66 YO M admitted with right foot cellulitis. Now osteomyelitis. Cover for Int [facility]-Dr Fay. Objective Last Vital Signs Date Time Temp Pulse Resp B/P (MAP) Pulse Ox O2 Delivery O2 Flow Rate FiO2 07/14/17 08:00 98.8 78 16 112/65 98.8 07/14/17 04:00 96 07/13/17 03:58 Room Air 07/08/17 12:30 6.0 Laboratory Tests Test 07/14/17 07:20 White Blood Count 8.7 K/UL (4.8-10.8) Red Blood Count 4.04 M/UL (4.70-6.10) L Hemoglobin 11.7 G/DL (14.2-18.0) L Hematocrit 33.7 % (42.0-52.0) L Mean Corpuscular Volume 83 FL (80-99) Mean Corpuscular Hemoglobin 28.9 PG (27.0-31.0) Mean Corpuscular Hemoglobin Concent 34.7 G/DL (32.0-36.0) Red Cell Distribution Width 11.5 % (11.6-14.8) L Platelet Count 221 K/UL (150-450) Mean Platelet Volume 10.5 FL (6.5-10.1) H Neutrophils (%) (Auto) 59.0 % (45.0-75.0) Lymphocytes (%) (Auto) 25.7 % (20.0-45.0) Monocytes (%) (Auto) 11.4 % (1.0-10.0) H Eosinophils (%) (Auto) 3.0 % (0.0-3.0) Basophils (%) (Auto) 1.0 % (0.0-2.0) Sodium Level 140 MMOL/L (136-145) Potassium Level 3.3 MMOL/L (3.5-5.1) L Chloride Level 105 MMOL/L (98-107) Carbon Dioxide Level 25 MMOL/L (21-32) Anion Gap 10 mmol/L (5-15) Blood Urea Nitrogen 21 mg/dL (7-18) H Creatinine 1.2 MG/DL (0.55-1.30) Estimat Glomerular Filtration Rate > 60 mL/min (>60) Glucose Level 120 MG/DL (74-106) H Calcium Level 8.3 MG/DL (8.5-10.1) L Phosphorus Level 3.8 MG/DL (2.5-4.9) Magnesium Level 1.6 MG/DL (1.8-2.4) L Intake and Output 07/13/17 07/14/17 19:00 07:00 Intake Total 800 ml 360 ml Balance 800 ml 360 ml Intake Oral 800 ml 360 ml # Voids 2 1 # Bowel Movements 1 3 Objective Objective General: No acute distress, awake and alert HEENT: NCAT, sclera anicteric, PERRL, EOMI. Neck: Supple, no significant jugular venous distention, Lungs: Good inspiratory effort, clear to auscultation bilaterally, no Wheeze or Rales. Heart: Regular rate and rhythm, normal S1/S2, no murmur Abdomen: soft, nontender, nondistended. Normoactive bowel sounds. Extremities: No Cyanosis , clubbing or edema. Left LE BKA, Right foot dressing intact. Neuro: A&O x 3, Motor intact. Skin: warm, no rashes or lesions Psych: Normal mood and affect Assessment/Plan Problem List: (1) S/P BKA (below knee amputation) unilateral (2) Diabetes mellitus, type II Assessment & Plan: Continue levemir, humalog, starlix, glucophage and januvia (3) Hypercholesteremia (4) Cellulitis of right lower extremity Assessment & Plan: 1st distal phalanx-see ID note. monitor off antibiotic (5) Ulcer of heel and midfoot (6) Osteomyelitis of ankle or foot, acute Assessment & Plan: Off antibiotic per ID (7) HTN (hypertension) (8) Gastritis Assessment & Plan: Protonix (9) Hemorrhage of gastrointestinal tract Assessment & Plan: S/P EGD on 07/08/17-see GI note. Status: not improved SPEEDY WRIGHT July 14, 2017 11:29
[2017-07-14 12:16] VITALS: BP 126/73
--- NOTE | 2017-07-14 12:47 | GI Progress Note ---
Assessment/Plan Problems: (1) ETOH abuse ICD Codes: F10.10 - Alcohol abuse, uncomplicated SNOMED: 89183294 (2) Failure to thrive SNOMED: 78304078 (3) GERD (gastroesophageal reflux disease) ICD Codes: K21.9 - GERD (gastroesophageal reflux disease) SNOMED: 397299392 (4) N&V (nausea and vomiting) ICD Codes: R11.2 - N&V (nausea and vomiting) SNOMED: 29935895 Status: stable Status Narrative Discussed with Dr. Zapata. Assessment/Plan SUMMARY OF FINDINGS: Diffuse gastritis, status post biopsy, otherwise normal upper endoscopic examination. RECOMMENDATIONS: prn transfusion ppi tolerating diet bowel regime fu labs will need out patient colonoscopy Subjective Subjective limited Objective Last 24 Hour Vital Signs Date Time Temp Pulse Resp B/P (MAP) Pulse Ox O2 Delivery O2 Flow Rate FiO2 07/14/17 12:16 98.1 81 18 126/73 98.1 07/14/17 08:00 98.8 78 16 112/65 98.8 07/14/17 04:00 98.2 93 18 131/80 96 98.2 07/14/17 00:29 98.1 88 17 125/71 96 98.1 07/13/17 20:00 98.0 95 16 123/76 96 98.0 07/13/17 16:00 98.0 93 20 119/78 96 98.0 Intake and Output 07/13/17 07/14/17 19:00 07:00 Intake Total 800 ml 360 ml Balance 800 ml 360 ml Intake Oral 800 ml 360 ml # Voids 2 1 # Bowel Movements 1 3 Laboratory Tests Test 07/14/17 07:20 White Blood Count 8.7 K/UL (4.8-10.8) Red Blood Count 4.04 M/UL (4.70-6.10) L Hemoglobin 11.7 G/DL (14.2-18.0) L Hematocrit 33.7 % (42.0-52.0) L Mean Corpuscular Volume 83 FL (80-99) Mean Corpuscular Hemoglobin 28.9 PG (27.0-31.0) Mean Corpuscular Hemoglobin Concent 34.7 G/DL (32.0-36.0) Red Cell Distribution Width 11.5 % (11.6-14.8) L Platelet Count 221 K/UL (150-450) Mean Platelet Volume 10.5 FL (6.5-10.1) H Neutrophils (%) (Auto) 59.0 % (45.0-75.0) Lymphocytes (%) (Auto) 25.7 % (20.0-45.0) Monocytes (%) (Auto) 11.4 % (1.0-10.0) H Eosinophils (%) (Auto) 3.0 % (0.0-3.0) Basophils (%) (Auto) 1.0 % (0.0-2.0) Sodium Level 140 MMOL/L (136-145) Potassium Level 3.3 MMOL/L (3.5-5.1) L Chloride Level 105 MMOL/L (98-107) Carbon Dioxide Level 25 MMOL/L (21-32) Anion Gap 10 mmol/L (5-15) Blood Urea Nitrogen 21 mg/dL (7-18) H Creatinine 1.2 MG/DL (0.55-1.30) Estimat Glomerular Filtration Rate > 60 mL/min (>60) Glucose Level 120 MG/DL (74-106) H Calcium Level 8.3 MG/DL (8.5-10.1) L Phosphorus Level 3.8 MG/DL (2.5-4.9) Magnesium Level 1.6 MG/DL (1.8-2.4) L Height (Feet): 5 Height (Inches): 5.00 Weight (Pounds): 180 General Appearance: WD/WN, no apparent distress, alert Cardiovascular: normal rate Respiratory/Chest: normal breath sounds, no respiratory distress Abdominal Exam: normal bowel sounds, non tender, soft Extremities: normal range of motion, non-tender Carol Ontiveros N.P. July 14, 2017 12:47
--- NOTE | 2017-07-14 14:50 | Pulmonology Progress Note ---
Assessment/Plan Problems: (1) Osteomyelitis of ankle or foot, acute (2) Cellulitis of right lower extremity (3) Ulcer of heel and midfoot (4) ETOH abuse (5) HTN (hypertension) (6) Diabetes (7) Anemia (8) S/P BKA (below knee amputation) Assessment/Plan doing great all reviewed no new events skin getting much better pt/ot reordered eating better, dc planning in process \ Subjective ROS Limited/Unobtainable: No Constitutional: Reports: no symptoms HEENT: Repors: no symptoms Respiratory: Reports: no symptoms Allergies: Coded Allergies: No Known Allergies (Unverified , 11/16/14) Objective Last 24 Hour Vital Signs Date Time Temp Pulse Resp B/P (MAP) Pulse Ox O2 Delivery O2 Flow Rate FiO2 07/14/17 12:16 98.1 81 18 126/73 98.1 07/14/17 08:00 98.8 78 16 112/65 98.8 07/14/17 04:00 98.2 93 18 131/80 96 98.2 07/14/17 00:29 98.1 88 17 125/71 96 98.1 07/13/17 20:00 98.0 95 16 123/76 96 98.0 07/13/17 16:00 98.0 93 20 119/78 96 98.0 Intake and Output 07/13/17 07/14/17 19:00 07:00 Intake Total 800 ml 360 ml Balance 800 ml 360 ml Intake Oral 800 ml 360 ml # Voids 2 1 # Bowel Movements 1 3 Objective General Appearance: WD/WN HEENT: normocephalic, atraumatic Respiratory/Chest: chest wall non-tender, lungs clear Breasts: no masses Cardiovascular: normal peripheral pulses, regular rhythm Abdomen: normal bowel sounds, soft, non tender Genitourinary: normal external genitalia Extremities: no cyanosis, aka Skin: extensive keratic lesions on leg Laboratory Tests 07/14/17 07:20: White Blood Count 8.7, Red Blood Count 4.04L, Hemoglobin 11.7L, Hematocrit 33.7L , Mean Corpuscular Volume 83, Mean Corpuscular Hemoglobin 28.9, Mean Corpuscular Hemoglobin Concent 34.7, Red Cell Distribution Width 11.5L, Platelet Count 221, Mean Platelet Volume 10.5H, Neutrophils (%) (Auto) 59.0, Lymphocytes (%) (Auto) 25.7, Monocytes (%) (Auto) 11.4H, Eosinophils (%) (Auto) 3.0, Basophils (%) (Auto) 1.0, Sodium Level 140, Potassium Level 3.3L, Chloride Level 105, Carbon Dioxide Level 25, Anion Gap 10, Blood Urea Nitrogen 21H, Creatinine 1.2, Estimat Glomerular Filtration Rate > 60, Glucose Level 120H, Calcium Level 8.3L, Phosphorus Level 3.8, Magnesium Level 1.6L Current Medications Medications (Trade) Dose Ordered Sig/Caden Route PRN Reason Start Time Stop Time Status Last Admin Dose Admin Clotrimazole (Lotrimin) 1 applic EVERY 12 HOURS TOPIC 06/14/17 15:30 07/14/17 15:29 07/14/17 10:13 Dextrose (Dextrose 50%) 25 ml STAT PRN IV Hypoglycemia 07/12/17 07:15 08/11/17 07:14 Dextrose (Dextrose 50%) 50 ml STAT PRN IV Hypoglycemia 07/12/17 07:15 08/11/17 07:14 Heparin Sodium (Porcine) (Heparin 5000 units/ml) 5,000 units EVERY 12 HOURS SUBQ 07/12/17 21:00 07/20/17 10:25 07/14/17 09:50 Insulin Aspart (NovoLOG) BEFORE MEALS AND HS SUBQ 06/20/17 12:45 07/20/17 12:44 07/14/17 11:32 Insulin Detemir (Levemir) 10 units DAILY SUBQ 07/12/17 09:00 08/11/17 08:59 07/14/17 09:54 Metformin HCl (Glucophage) 500 mg TIAC ORAL 07/12/17 11:30 08/11/17 11:29 07/14/17 12:05 Nateglinide (Starlix) 120 mg TIAC ORAL 07/12/17 11:30 08/09/17 11:29 07/14/17 12:08 Ondansetron HCl (Zofran) 4 mg Q4H PRN IVP Nausea & Vomiting 07/07/17 08:00 08/06/17 07:59 07/07/17 09:15 Pantoprazole (Protonix) 40 mg ACBREAKFAST ORAL 07/14/17 06:30 08/13/17 06:29 07/14/17 06:08 Sitagliptin Phosphate (Januvia) 50 mg ACBREAKFAST ORAL 07/11/17 08:00 08/10/17 07:59 07/14/17 05:22 Sodium Hypochlorite (Dakin's Quarter Strength) 1 applic DAILY TOPIC 06/28/17 09:00 07/28/17 08:59 07/14/17 10:13 Kyra Massey MD July 14, 2017 14:50
[2017-07-14 15:45] VITALS: BP 130/83
--- NOTE | 2017-07-14 16:59 | Infectious Diseases Prog Note ---
Assessment/Plan Assessment/Plan The patient is a 66-year-old male with Coffee ground Emesis-?GIB -s/p EGD 07/08: Diffuse gastritis, status post biopsy, otherwise normal upper endoscopic examination. Low grade fever- possibly reactive to above- ; resolved, no PNA -CXR 07/07: No radiographic evidence of acute cardiopulmonary disease. Mild leukocytosis- posibly reactive Right foot cellulitis (resolved). right big toe. osteo , s/p Rx -MRI R foot: Findings suspicious for osteomyelitis of the distal aspect of the first distal phalanx -wound cx E.fecalis ([place] S), CoNS (likely represents colonizers) Fever, SP Normal white blood cells Influenza screening tests : Neg RP : 2.4 => 07/02 : 0.4 06/28 ESR : 74 => 07/02 : 31 Diabetes. Hyperlipidemia. Hypertension. Left BKA. History of alcohol abuse and smoking until recently. 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 PLAN: monitor pt off of IV AB Rx unless persistently febrile, new infiltrates in CXR and/or worsenign leukocytosis Clotrimazole topical If T>101, obtain 2 sets of Bcx - 07/01 SP IV vancomycin and Ceftriaxone and Flagyl ( abx d# 42/42 ) -05/24 SP Cefepime #4 Monitor CBC. Monitor BMP. Subjective Allergies: Coded Allergies: No Known Allergies (Unverified , 11/16/14) Subjective afebrile no leukocytosis off abx Objective Vital Signs Last 24 Hour Vital Signs Date Time Temp Pulse Resp B/P (MAP) Pulse Ox O2 Delivery O2 Flow Rate FiO2 07/14/17 15:45 99.3 81 18 130/83 99.3 07/14/17 12:16 98.1 81 18 126/73 98.1 07/14/17 08:00 98.8 78 16 112/65 98.8 07/14/17 04:00 98.2 93 18 131/80 96 98.2 07/14/17 00:29 98.1 88 17 125/71 96 98.1 07/13/17 20:00 98.0 95 16 123/76 96 98.0 Height (Feet): 5 Height (Inches): 5.00 Weight (Pounds): 180 Objective General Appearance: WD/WN HEENT: normocephalic, atraumatic Respiratory/Chest: chest wall non-tender, lungs clear Breasts: no masses Cardiovascular: normal peripheral pulses, regular rhythm Abdomen: normal bowel sounds, soft, non tender Genitourinary: normal external genitalia Extremities: no cyanosis, aka Skin: extensive keratic lesions on leg Laboratory Tests Test 07/14/17 07:20 White Blood Count 8.7 K/UL (4.8-10.8) Red Blood Count 4.04 M/UL (4.70-6.10) L Hemoglobin 11.7 G/DL (14.2-18.0) L Hematocrit 33.7 % (42.0-52.0) L Mean Corpuscular Volume 83 FL (80-99) Mean Corpuscular Hemoglobin 28.9 PG (27.0-31.0) Mean Corpuscular Hemoglobin Concent 34.7 G/DL (32.0-36.0) Red Cell Distribution Width 11.5 % (11.6-14.8) L Platelet Count 221 K/UL (150-450) Mean Platelet Volume 10.5 FL (6.5-10.1) H Neutrophils (%) (Auto) 59.0 % (45.0-75.0) Lymphocytes (%) (Auto) 25.7 % (20.0-45.0) Monocytes (%) (Auto) 11.4 % (1.0-10.0) H Eosinophils (%) (Auto) 3.0 % (0.0-3.0) Basophils (%) (Auto) 1.0 % (0.0-2.0) Sodium Level 140 MMOL/L (136-145) Potassium Level 3.3 MMOL/L (3.5-5.1) L Chloride Level 105 MMOL/L (98-107) Carbon Dioxide Level 25 MMOL/L (21-32) Anion Gap 10 mmol/L (5-15) Blood Urea Nitrogen 21 mg/dL (7-18) H Creatinine 1.2 MG/DL (0.55-1.30) Estimat Glomerular Filtration Rate > 60 mL/min (>60) Glucose Level 120 MG/DL (74-106) H Calcium Level 8.3 MG/DL (8.5-10.1) L Phosphorus Level 3.8 MG/DL (2.5-4.9) Magnesium Level 1.6 MG/DL (1.8-2.4) L Current Medications Medications (Trade) Dose Ordered Sig/Caden Route PRN Reason Start Time Stop Time Status Last Admin Dose Admin Dextrose (Dextrose 50%) 25 ml STAT PRN IV Hypoglycemia 07/12/17 07:15 08/11/17 07:14 Dextrose (Dextrose 50%) 50 ml STAT PRN IV Hypoglycemia 07/12/17 07:15 08/11/17 07:14 Heparin Sodium (Porcine) (Heparin 5000 units/ml) 5,000 units EVERY 12 HOURS SUBQ 07/12/17 21:00 07/20/17 10:25 07/14/17 09:50 Insulin Aspart (NovoLOG) BEFORE MEALS AND HS SUBQ 06/20/17 12:45 07/20/17 12:44 07/14/17 11:32 Insulin Detemir (Levemir) 10 units DAILY SUBQ 07/12/17 09:00 08/11/17 08:59 07/14/17 09:54 Metformin HCl (Glucophage) 500 mg TIAC ORAL 07/12/17 11:30 08/11/17 11:29 07/14/17 16:19 Nateglinide (Starlix) 120 mg TIAC ORAL 07/12/17 11:30 08/09/17 11:29 07/14/17 16:19 Ondansetron HCl (Zofran) 4 mg Q4H PRN IVP Nausea & Vomiting 07/07/17 08:00 08/06/17 07:59 07/07/17 09:15 Pantoprazole (Protonix) 40 mg ACBREAKFAST ORAL 07/14/17 06:30 08/13/17 06:29 07/14/17 06:08 Sitagliptin Phosphate (Januvia) 50 mg ACBREAKFAST ORAL 07/11/17 08:00 08/10/17 07:59 07/14/17 05:22 Sodium Hypochlorite (Dakin's Quarter Strength) 1 applic DAILY TOPIC 06/28/17 09:00 07/28/17 08:59 07/14/17 10:13 Dena Frank M.D. July 14, 2017 16:59
[2017-07-14 20:00] VITALS: BP 124/77
[2017-07-15 04:00] VITALS: BP 121/85
[2017-07-15] MEDS: metFORMIN 500mg tab ORAL SCH ×3 (06:06→17:16)
[2017-07-15] MEDS: sitaGLIPtin 50mg tab ORAL SCH (06:06)
[2017-07-15] MEDS: NovoLOG Insulin Flexpen SUBQ SCH ×4 (06:22→21:46)
--- NOTE | 2017-07-15 07:12 | General Progress Note ---
Assessment/Plan Problem List: (1) Cellulitis of foot without toes ICD Codes: L03.119 - Cellulitis of unspecified part of limb SNOMED: 025385173 (2) Hyperlipidemia ICD Codes: E78.5 - Hyperlipidemia, unspecified SNOMED: 91824428 (3) Osteomyelitis ICD Codes: M86.9 - Osteomyelitis, unspecified SNOMED: 17518768 (4) Diabetes ICD Codes: E11.9 - Diabetes SNOMED: 26906771 (5) HTN (hypertension) ICD Codes: I10 - Essential (primary) hypertension SNOMED: 72713223 Assessment/Plan continue Januvia 50 mg daily continue Starlix 120 mg ac tid continue Metformin 500 mg tid reduce Levemir 10 to 6 units qam continue NISS Subjective Allergies: Coded Allergies: No Known Allergies (Unverified , 11/16/14) All Systems: reviewed and negative except above Subjective events noted Objective Last 24 Hour Vital Signs Date Time Temp Pulse Resp B/P (MAP) Pulse Ox O2 Delivery O2 Flow Rate FiO2 07/15/17 04:00 98.9 85 18 121/85 97 Room Air 98.9 07/14/17 20:00 98.8 90 18 124/77 96 Room Air 98.8 07/14/17 15:45 99.3 81 18 130/83 99.3 07/14/17 12:16 98.1 81 18 126/73 98.1 07/14/17 08:00 98.8 78 16 112/65 98.8 Intake and Output 07/14/17 07/15/17 19:00 07:00 Intake Total 470 ml 200 ml Output Total 200 ml Balance 270 ml 200 ml Intake Oral 470 ml 200 ml Output Urine Total 200 ml # Voids 3 # Bowel Movements 2 Laboratory Tests 07/14/17 07:20: White Blood Count 8.7, Red Blood Count 4.04L, Hemoglobin 11.7L, Hematocrit 33.7L , Mean Corpuscular Volume 83, Mean Corpuscular Hemoglobin 28.9, Mean Corpuscular Hemoglobin Concent 34.7, Red Cell Distribution Width 11.5L, Platelet Count 221, Mean Platelet Volume 10.5H, Neutrophils (%) (Auto) 59.0, Lymphocytes (%) (Auto) 25.7, Monocytes (%) (Auto) 11.4H, Eosinophils (%) (Auto) 3.0, Basophils (%) (Auto) 1.0, Sodium Level 140, Potassium Level 3.3L, Chloride Level 105, Carbon Dioxide Level 25, Anion Gap 10, Blood Urea Nitrogen 21H, Creatinine 1.2, Estimat Glomerular Filtration Rate > 60, Glucose Level 120H, Calcium Level 8.3L, Phosphorus Level 3.8, Magnesium Level 1.6L 07/15/17 05:45: White Blood Count [Pending], Red Blood Count [Pending], Hemoglobin [Pending], Hematocrit [Pending], Mean Corpuscular Volume [Pending], Mean Corpuscular Hemoglobin [Pending], Mean Corpuscular Hemoglobin Concent [Pending], Red Cell Distribution Width [Pending], Platelet Count [Pending], Mean Platelet Volume [ Pending], Neutrophils (%) (Auto) [Pending], Lymphocytes (%) (Auto) [Pending], Monocytes (%) (Auto) [Pending], Eosinophils (%) (Auto) [Pending], Basophils (%) (Auto) [Pending], Sodium Level [Pending], Potassium Level [Pending], Chloride Level [Pending], Carbon Dioxide Level [Pending], Blood Urea Nitrogen [Pending], Creatinine [Pending], Estimat Glomerular Filtration Rate [Pending], Glucose Level [Pending], Calcium Level [Pending] Height (Feet): 5 Height (Inches): 5.00 Weight (Pounds): 180 General Appearance: no apparent distress Neck: normal alignment Cardiovascular: normal rate Respiratory/Chest: lungs clear Abdomen: normal bowel sounds Objective Current Medications Medications (Trade) Dose Ordered Sig/Caden Route PRN Reason Start Time Stop Time Status Last Admin Dose Admin Clotrimazole (Lotrimin) 1 applic BID TOPIC 07/14/17 23:11 08/13/17 23:10 Dextrose (Dextrose 50%) 25 ml STAT PRN IV Hypoglycemia 07/12/17 07:15 08/11/17 07:14 Dextrose (Dextrose 50%) 50 ml STAT PRN IV Hypoglycemia 07/12/17 07:15 08/11/17 07:14 Heparin Sodium (Porcine) (Heparin 5000 units/ml) 5,000 units EVERY 12 HOURS SUBQ 07/12/17 21:00 07/20/17 10:25 07/14/17 20:46 Insulin Aspart (NovoLOG) BEFORE MEALS AND HS SUBQ 06/20/17 12:45 07/20/17 12:44 07/14/17 11:32 Insulin Detemir (Levemir) 10 units DAILY SUBQ 07/12/17 09:00 08/11/17 08:59 07/14/17 09:54 Metformin HCl (Glucophage) 500 mg TIAC ORAL 07/12/17 11:30 08/11/17 11:29 07/15/17 06:06 Nateglinide (Starlix) 120 mg TIAC ORAL 07/12/17 11:30 08/09/17 11:29 07/15/17 06:06 Ondansetron HCl (Zofran) 4 mg Q4H PRN IVP Nausea & Vomiting 07/07/17 08:00 08/06/17 07:59 07/07/17 09:15 Pantoprazole (Protonix) 40 mg ACBREAKFAST ORAL 07/14/17 06:30 08/13/17 06:29 07/15/17 06:06 Sitagliptin Phosphate (Januvia) 50 mg ACBREAKFAST ORAL 07/11/17 08:00 08/10/17 07:59 07/15/17 06:06 Sodium Hypochlorite (Dakin's Quarter Strength) 1 applic DAILY TOPIC 06/28/17 09:00 07/28/17 08:59 07/14/17 10:13 Item Value Date Time Bedside Blood Glucose 96 mg/dl 07/15/17 0622 Bedside Blood Glucose 85 mg/dl 07/14/17 2100 Bedside Blood Glucose 105 mg/dl 07/14/17 1630 Bedside Blood Glucose 114 mg/dl 07/14/17 1132 Bedside Blood Glucose 116 mg/dl 07/14/17 0954 Bedside Blood Glucose 116 mg/dl 07/14/17 0610 AUBREY LEWIS July 15, 2017 07:12
[2017-07-15 07:31] LABS: ANION GAP 10 mmol/L (5-15); BLOOD UREA NITROGEN 18 mg/dL (7-18); CALCIUM 8.9 MG/DL (8.5-10.1); CARBON DIOXIDE 25 MMOL/L (21-32); CHLORIDE 106 MMOL/L (98-107); CREATININE 1.1 MG/DL (0.55-1.30); POTASSIUM 4.2 MMOL/L (3.5-5.1); SODIUM 141 MMOL/L (136-145)
[2017-07-15 07:32] LABS: BASOPHILS % (AUTO) 0.8 % (0.0-2.0); EOSINOPHILS % (AUTO) 2.8 % (0.0-3.0); HEMATOCRIT 35.1 % (42.0-52.0); HEMOGLOBIN 12.2 G/DL (14.2-18.0); LYMPHOCYTES % (AUTO) 25.2 % (20.0-45.0); MEAN CORPUSCULAR VOLUME 83 FL (80-99); MONOCYTES % (AUTO) 10.5 % (1.0-10.0); NEUTROPHILS % (AUTO) 60.8 % (45.0-75.0); PLATELET COUNT 219 K/UL (150-450); RED BLOOD COUNT 4.21 M/UL (4.70-6.10); RED CELL DISTRIBUTION WIDTH 11.5 % (11.6-14.8); WHITE BLOOD COUNT 9.7 K/UL (4.8-10.8)
[2017-07-15 08:00] VITALS: BP 119/73
[2017-07-15] MEDS: Heparin 5000 units/ml inj SUBQ SCH ×2 (09:00→21:37)
[2017-07-15] MEDS ORDERED: Levemir Flexpen SUBQ SCH (09:00)
[2017-07-15] MEDS: Dakin's 0.125% Soln (Quarter Strength) 16oz TOPIC SCH (09:00)
[2017-07-15 12:00] VITALS: BP 115/72
--- NOTE | 2017-07-15 12:42 | GI Progress Note ---
Assessment/Plan Problems: (1) ETOH abuse ICD Codes: F10.10 - Alcohol abuse, uncomplicated SNOMED: 53001892 (2) Failure to thrive SNOMED: 71934288 (3) GERD (gastroesophageal reflux disease) ICD Codes: K21.9 - GERD (gastroesophageal reflux disease) SNOMED: 755397692 (4) N&V (nausea and vomiting) ICD Codes: R11.2 - N&V (nausea and vomiting) SNOMED: 29138750 Status: unchanged Status Narrative Discussed with Dr. Zapata. Assessment/Plan SUMMARY OF FINDINGS: Diffuse gastritis, status post biopsy, otherwise normal upper endoscopic examination. RECOMMENDATIONS: prn transfusion ppi tolerating diet bowel regime fu labs will need out patient colonoscopy Subjective Subjective limited Objective Last 24 Hour Vital Signs Date Time Temp Pulse Resp B/P (MAP) Pulse Ox O2 Delivery O2 Flow Rate FiO2 07/15/17 12:00 97.9 85 19 115/72 96 97.9 07/15/17 08:00 98.1 88 19 119/73 100 98.1 07/15/17 04:00 98.9 85 18 121/85 97 Room Air 98.9 07/14/17 20:00 98.8 90 18 124/77 96 Room Air 98.8 07/14/17 15:45 99.3 81 18 130/83 99.3 Intake and Output 07/14/17 07/15/17 19:00 07:00 Intake Total 470 ml 200 ml Output Total 200 ml Balance 270 ml 200 ml Intake Oral 470 ml 200 ml Output Urine Total 200 ml # Voids 3 # Bowel Movements 2 Laboratory Tests Test 07/15/17 05:45 White Blood Count 9.7 K/UL (4.8-10.8) Red Blood Count 4.21 M/UL (4.70-6.10) L Hemoglobin 12.2 G/DL (14.2-18.0) L Hematocrit 35.1 % (42.0-52.0) L Mean Corpuscular Volume 83 FL (80-99) Mean Corpuscular Hemoglobin 29.0 PG (27.0-31.0) Mean Corpuscular Hemoglobin Concent 34.8 G/DL (32.0-36.0) Red Cell Distribution Width 11.5 % (11.6-14.8) L Platelet Count 219 K/UL (150-450) Mean Platelet Volume 9.5 FL (6.5-10.1) Neutrophils (%) (Auto) 60.8 % (45.0-75.0) Lymphocytes (%) (Auto) 25.2 % (20.0-45.0) Monocytes (%) (Auto) 10.5 % (1.0-10.0) H Eosinophils (%) (Auto) 2.8 % (0.0-3.0) Basophils (%) (Auto) 0.8 % (0.0-2.0) Sodium Level 141 MMOL/L (136-145) Potassium Level 4.2 MMOL/L (3.5-5.1) Chloride Level 106 MMOL/L (98-107) Carbon Dioxide Level 25 MMOL/L (21-32) Anion Gap 10 mmol/L (5-15) Blood Urea Nitrogen 18 mg/dL (7-18) Creatinine 1.1 MG/DL (0.55-1.30) Estimat Glomerular Filtration Rate > 60 mL/min (>60) Glucose Level 93 MG/DL (74-106) Calcium Level 8.9 MG/DL (8.5-10.1) Height (Feet): 5 Height (Inches): 5.00 Weight (Pounds): 180 General Appearance: WD/WN, no apparent distress, alert Cardiovascular: normal rate Respiratory/Chest: normal breath sounds, no respiratory distress Abdominal Exam: normal bowel sounds, non tender, soft Extremities: normal range of motion, non-tender Carol Ontiveros N.P. July 15, 2017 12:42
--- NOTE | 2017-07-15 14:56 | Pulmonology Progress Note ---
Assessment/Plan Problems: (1) Osteomyelitis of ankle or foot, acute (2) Cellulitis of right lower extremity (3) Ulcer of heel and midfoot (4) ETOH abuse (5) HTN (hypertension) (6) Diabetes (7) Anemia (8) S/P BKA (below knee amputation) Assessment/Plan doing great all reviewed no new events skin getting much better pt/ot reordered eating better, dc planning in process \ Subjective ROS Limited/Unobtainable: No Constitutional: Reports: no symptoms HEENT: Repors: no symptoms Respiratory: Reports: no symptoms Allergies: Coded Allergies: No Known Allergies (Unverified , 11/16/14) Objective Last 24 Hour Vital Signs Date Time Temp Pulse Resp B/P (MAP) Pulse Ox O2 Delivery O2 Flow Rate FiO2 07/15/17 12:00 97.9 85 19 115/72 96 97.9 07/15/17 08:00 98.1 88 19 119/73 100 98.1 07/15/17 04:00 98.9 85 18 121/85 97 Room Air 98.9 07/14/17 20:00 98.8 90 18 124/77 96 Room Air 98.8 07/14/17 15:45 99.3 81 18 130/83 99.3 Intake and Output 07/14/17 07/15/17 19:00 07:00 Intake Total 470 ml 200 ml Output Total 200 ml Balance 270 ml 200 ml Intake Oral 470 ml 200 ml Output Urine Total 200 ml # Voids 3 # Bowel Movements 2 Objective General Appearance: WD/WN HEENT: normocephalic, atraumatic Respiratory/Chest: chest wall non-tender, lungs clear Breasts: no masses Cardiovascular: normal peripheral pulses, regular rhythm Abdomen: normal bowel sounds, soft, non tender Genitourinary: normal external genitalia Extremities: no cyanosis, aka Skin: extensive keratic lesions on leg Laboratory Tests 07/15/17 05:45: White Blood Count 9.7, Red Blood Count 4.21L, Hemoglobin 12.2L, Hematocrit 35.1L , Mean Corpuscular Volume 83, Mean Corpuscular Hemoglobin 29.0, Mean Corpuscular Hemoglobin Concent 34.8, Red Cell Distribution Width 11.5L, Platelet Count 219, Mean Platelet Volume 9.5, Neutrophils (%) (Auto) 60.8, Lymphocytes (%) (Auto) 25.2, Monocytes (%) (Auto) 10.5H, Eosinophils (%) (Auto) 2.8, Basophils (%) (Auto) 0.8, Sodium Level 141, Potassium Level 4.2, Chloride Level 106, Carbon Dioxide Level 25, Anion Gap 10, Blood Urea Nitrogen 18, Creatinine 1.1, Estimat Glomerular Filtration Rate > 60, Glucose Level 93, Calcium Level 8.9 Current Medications Medications (Trade) Dose Ordered Sig/Caden Route PRN Reason Start Time Stop Time Status Last Admin Dose Admin Clotrimazole (Lotrimin) 1 applic BID TOPIC 07/14/17 23:11 08/13/17 23:10 Dextrose (Dextrose 50%) 25 ml STAT PRN IV Hypoglycemia 07/12/17 07:15 08/11/17 07:14 Dextrose (Dextrose 50%) 50 ml STAT PRN IV Hypoglycemia 07/12/17 07:15 08/11/17 07:14 Heparin Sodium (Porcine) (Heparin 5000 units/ml) 5,000 units EVERY 12 HOURS SUBQ 07/12/17 21:00 07/20/17 10:25 07/14/17 20:46 Insulin Aspart (NovoLOG) BEFORE MEALS AND HS SUBQ 06/20/17 12:45 07/20/17 12:44 07/15/17 11:38 Insulin Detemir (Levemir) 6 units DAILY SUBQ 07/15/17 09:00 08/11/17 08:59 Metformin HCl (Glucophage) 500 mg TIAC ORAL 07/12/17 11:30 08/11/17 11:29 07/15/17 11:34 Nateglinide (Starlix) 120 mg TIAC ORAL 07/12/17 11:30 08/09/17 11:29 07/15/17 11:34 Ondansetron HCl (Zofran) 4 mg Q4H PRN IVP Nausea & Vomiting 07/07/17 08:00 08/06/17 07:59 07/07/17 09:15 Pantoprazole (Protonix) 40 mg ACBREAKFAST ORAL 07/14/17 06:30 08/13/17 06:29 07/15/17 06:06 Sitagliptin Phosphate (Januvia) 50 mg ACBREAKFAST ORAL 07/11/17 08:00 08/10/17 07:59 07/15/17 06:06 Sodium Hypochlorite (Dakin's Quarter Strength) 1 applic DAILY TOPIC 06/28/17 09:00 07/28/17 08:59 07/14/17 10:13 Kyra Massey MD July 15, 2017 14:55
--- NOTE | 2017-07-15 15:43 | Infectious Diseases Prog Note ---
Assessment/Plan Assessment/Plan The patient is a 66-year-old male with Coffee ground Emesis-?GIB -s/p EGD 07/08: Diffuse gastritis, status post biopsy, otherwise normal upper endoscopic examination. Low grade fever- possibly reactive to above- ; resolved, no PNA -CXR 07/07: No radiographic evidence of acute cardiopulmonary disease. Mild leukocytosis- posibly reactive Right foot cellulitis (resolved). right big toe. osteo , s/p Rx -MRI R foot: Findings suspicious for osteomyelitis of the distal aspect of the first distal phalanx -wound cx E.fecalis ([place] S), CoNS (likely represents colonizers) Fever, SP Normal white blood cells Influenza screening tests : Neg RP : 2.4 => 07/02 : 0.4 06/28 ESR : 74 => 07/02 : 31 Diabetes. Hyperlipidemia. Hypertension. Left BKA. History of alcohol abuse and smoking until recently. 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 PLAN: monitor pt off of IV AB Rx unless persistently febrile, new infiltrates in CXR and/or worsenign leukocytosis Clotrimazole topical If T>101, obtain 2 sets of Bcx - 07/01 SP IV vancomycin and Ceftriaxone and Flagyl ( abx d# 42/42 ) -05/24 SP Cefepime #4 Monitor CBC. Monitor BMP. Subjective Allergies: Coded Allergies: No Known Allergies (Unverified , 11/16/14) Subjective afebrile no leukocytosis off abx Objective Vital Signs Last 24 Hour Vital Signs Date Time Temp Pulse Resp B/P (MAP) Pulse Ox O2 Delivery O2 Flow Rate FiO2 07/15/17 12:00 97.9 85 19 115/72 96 97.9 07/15/17 08:00 98.1 88 19 119/73 100 98.1 07/15/17 04:00 98.9 85 18 121/85 97 Room Air 98.9 07/14/17 20:00 98.8 90 18 124/77 96 Room Air 98.8 07/14/17 15:45 99.3 81 18 130/83 99.3 Height (Feet): 5 Height (Inches): 5.00 Weight (Pounds): 180 Objective General Appearance: WD/WN HEENT: normocephalic, atraumatic Respiratory/Chest: chest wall non-tender, lungs clear Breasts: no masses Cardiovascular: normal peripheral pulses, regular rhythm Abdomen: normal bowel sounds, soft, non tender Genitourinary: normal external genitalia Extremities: no cyanosis, aka Skin: extensive keratic lesions on leg Laboratory Tests Test 07/15/17 05:45 White Blood Count 9.7 K/UL (4.8-10.8) Red Blood Count 4.21 M/UL (4.70-6.10) L Hemoglobin 12.2 G/DL (14.2-18.0) L Hematocrit 35.1 % (42.0-52.0) L Mean Corpuscular Volume 83 FL (80-99) Mean Corpuscular Hemoglobin 29.0 PG (27.0-31.0) Mean Corpuscular Hemoglobin Concent 34.8 G/DL (32.0-36.0) Red Cell Distribution Width 11.5 % (11.6-14.8) L Platelet Count 219 K/UL (150-450) Mean Platelet Volume 9.5 FL (6.5-10.1) Neutrophils (%) (Auto) 60.8 % (45.0-75.0) Lymphocytes (%) (Auto) 25.2 % (20.0-45.0) Monocytes (%) (Auto) 10.5 % (1.0-10.0) H Eosinophils (%) (Auto) 2.8 % (0.0-3.0) Basophils (%) (Auto) 0.8 % (0.0-2.0) Sodium Level 141 MMOL/L (136-145) Potassium Level 4.2 MMOL/L (3.5-5.1) Chloride Level 106 MMOL/L (98-107) Carbon Dioxide Level 25 MMOL/L (21-32) Anion Gap 10 mmol/L (5-15) Blood Urea Nitrogen 18 mg/dL (7-18) Creatinine 1.1 MG/DL (0.55-1.30) Estimat Glomerular Filtration Rate > 60 mL/min (>60) Glucose Level 93 MG/DL (74-106) Calcium Level 8.9 MG/DL (8.5-10.1) Current Medications Medications (Trade) Dose Ordered Sig/Caden Route PRN Reason Start Time Stop Time Status Last Admin Dose Admin Clotrimazole (Lotrimin) 1 applic BID TOPIC 5/2/18 23:11 08/13/17 23:10 Dextrose (Dextrose 50%) 25 ml STAT PRN IV Hypoglycemia 07/12/17 07:15 08/11/17 07:14 Dextrose (Dextrose 50%) 50 ml STAT PRN IV Hypoglycemia 07/12/17 07:15 08/11/17 07:14 Heparin Sodium (Porcine) (Heparin 5000 units/ml) 5,000 units EVERY 12 HOURS SUBQ 07/12/17 21:00 07/20/17 10:25 07/14/17 20:46 Insulin Aspart (NovoLOG) BEFORE MEALS AND HS SUBQ 06/20/17 12:45 07/20/17 12:44 07/15/17 11:38 Insulin Detemir (Levemir) 6 units DAILY SUBQ 07/15/17 09:00 08/11/17 08:59 Metformin HCl (Glucophage) 500 mg TIAC ORAL 07/12/17 11:30 08/11/17 11:29 07/15/17 11:34 Nateglinide (Starlix) 120 mg TIAC ORAL 07/12/17 11:30 08/09/17 11:29 07/15/17 11:34 Ondansetron HCl (Zofran) 4 mg Q4H PRN IVP Nausea & Vomiting 07/07/17 08:00 08/06/17 07:59 07/07/17 09:15 Pantoprazole (Protonix) 40 mg ACBREAKFAST ORAL 07/14/17 06:30 08/13/17 06:29 07/15/17 06:06 Sitagliptin Phosphate (Januvia) 50 mg ACBREAKFAST ORAL 07/11/17 08:00 08/10/17 07:59 07/15/17 06:06 Sodium Hypochlorite (Dakin's Quarter Strength) 1 applic DAILY TOPIC 06/28/17 09:00 07/28/17 08:59 07/14/17 10:13 Dena Frank M.D. July 15, 2017 15:43
[2017-07-15 16:00] VITALS: BP 117/70
--- NOTE | 2017-07-15 18:10 | Internal Med Progress Note ---
Subjective Date of Service: July 15, 2017 Physician Name Speedy Wright Attending Physician Tello Fay MD Current Medications Medications (Trade) Dose Ordered Sig/Caden Route PRN Reason Start Time Stop Time Status Last Admin Dose Admin Clotrimazole (Lotrimin) 1 applic BID TOPIC 07/14/17 23:11 08/13/17 23:10 07/15/17 17:16 Dextrose (Dextrose 50%) 25 ml STAT PRN IV Hypoglycemia 07/12/17 07:15 08/11/17 07:14 Dextrose (Dextrose 50%) 50 ml STAT PRN IV Hypoglycemia 07/12/17 07:15 08/11/17 07:14 Heparin Sodium (Porcine) (Heparin 5000 units/ml) 5,000 units EVERY 12 HOURS SUBQ 07/12/17 21:00 07/20/17 10:25 07/14/17 20:46 Insulin Aspart (NovoLOG) BEFORE MEALS AND HS SUBQ 06/20/17 12:45 07/20/17 12:44 07/15/17 17:21 Insulin Detemir (Levemir) 6 units DAILY SUBQ 07/15/17 09:00 08/11/17 08:59 Metformin HCl (Glucophage) 500 mg TIAC ORAL 07/12/17 11:30 08/11/17 11:29 07/15/17 17:16 Nateglinide (Starlix) 120 mg TIAC ORAL 07/12/17 11:30 08/09/17 11:29 07/15/17 17:16 Ondansetron HCl (Zofran) 4 mg Q4H PRN IVP Nausea & Vomiting 07/07/17 08:00 08/06/17 07:59 07/07/17 09:15 Pantoprazole (Protonix) 40 mg ACBREAKFAST ORAL 07/14/17 06:30 08/13/17 06:29 07/15/17 06:06 Sitagliptin Phosphate (Januvia) 50 mg ACBREAKFAST ORAL 07/11/17 08:00 08/10/17 07:59 07/15/17 06:06 Sodium Hypochlorite (Dakin's Quarter Strength) 1 applic DAILY TOPIC 06/28/17 09:00 07/28/17 08:59 07/14/17 10:13 Allergies: Coded Allergies: No Known Allergies (Unverified , 11/16/14) ROS Limited/Unobtainable: No Constitutional: Reports: no symptoms HEENT: Reports: no symptoms Cardiovascular: Reports: no symptoms Respiratory: Reports: no symptoms Gastrointestinal/Abdominal: Reports: no symptoms Genitourinary: Reports: no symptoms Neurologic/Psychiatric: Reports: no symptoms Subjective 66 YO M admitted with right foot cellulitis. Now osteomyelitis. Cover for Int [facility]-Dr Fay. Objective Last Vital Signs Date Time Temp Pulse Resp B/P (MAP) Pulse Ox O2 Delivery O2 Flow Rate FiO2 07/15/17 16:00 98.2 91 19 117/70 99 98.2 07/15/17 04:00 Room Air 07/08/17 12:30 6.0 Laboratory Tests Test 07/15/17 05:45 White Blood Count 9.7 K/UL (4.8-10.8) Red Blood Count 4.21 M/UL (4.70-6.10) L Hemoglobin 12.2 G/DL (14.2-18.0) L Hematocrit 35.1 % (42.0-52.0) L Mean Corpuscular Volume 83 FL (80-99) Mean Corpuscular Hemoglobin 29.0 PG (27.0-31.0) Mean Corpuscular Hemoglobin Concent 34.8 G/DL (32.0-36.0) Red Cell Distribution Width 11.5 % (11.6-14.8) L Platelet Count 219 K/UL (150-450) Mean Platelet Volume 9.5 FL (6.5-10.1) Neutrophils (%) (Auto) 60.8 % (45.0-75.0) Lymphocytes (%) (Auto) 25.2 % (20.0-45.0) Monocytes (%) (Auto) 10.5 % (1.0-10.0) H Eosinophils (%) (Auto) 2.8 % (0.0-3.0) Basophils (%) (Auto) 0.8 % (0.0-2.0) Sodium Level 141 MMOL/L (136-145) Potassium Level 4.2 MMOL/L (3.5-5.1) Chloride Level 106 MMOL/L (98-107) Carbon Dioxide Level 25 MMOL/L (21-32) Anion Gap 10 mmol/L (5-15) Blood Urea Nitrogen 18 mg/dL (7-18) Creatinine 1.1 MG/DL (0.55-1.30) Estimat Glomerular Filtration Rate > 60 mL/min (>60) Glucose Level 93 MG/DL (74-106) Calcium Level 8.9 MG/DL (8.5-10.1) Intake and Output 07/14/17 07/15/17 19:00 07:00 Intake Total 470 ml 200 ml Output Total 200 ml Balance 270 ml 200 ml Intake Oral 470 ml 200 ml Output Urine Total 200 ml # Voids 3 # Bowel Movements 2 Objective Objective General: No acute distress, awake and alert HEENT: NCAT, sclera anicteric, PERRL, EOMI. Neck: Supple, no significant jugular venous distention, Lungs: Good inspiratory effort, clear to auscultation bilaterally, no Wheeze or Rales. Heart: Regular rate and rhythm, normal S1/S2, no murmur Abdomen: soft, nontender, nondistended. Normoactive bowel sounds. Extremities: No Cyanosis , clubbing or edema. Left LE BKA, Right foot dressing intact. Neuro: A&O x 3, Motor intact. Skin: warm, no rashes or lesions Psych: Normal mood and affect Assessment/Plan Problem List: (1) S/P BKA (below knee amputation) unilateral (2) Diabetes mellitus, type II Assessment & Plan: Continue levemir, humalog, starlix, glucophage and januvia (3) Hypercholesteremia (4) Cellulitis of right lower extremity Assessment & Plan: 1st distal phalanx-see ID note. monitor off antibiotic (5) Ulcer of heel and midfoot (6) Osteomyelitis of ankle or foot, acute Assessment & Plan: Off antibiotic per ID (7) HTN (hypertension) (8) Gastritis Assessment & Plan: Protonix (9) Hemorrhage of gastrointestinal tract Assessment & Plan: S/P EGD on 07/08/17-see GI note. Status: progressing SPEEDY WRIGHT July 15, 2017 18:10
[2017-07-15 20:00] VITALS: BP 111/67
[2017-07-16] VITALS: BP 107/66
[2017-07-16 04:00] VITALS: BP 105/61
[2017-07-16] MEDS: NovoLOG Insulin Flexpen SUBQ SCH ×4 (06:30→21:00)
[2017-07-16] MEDS: metFORMIN 500mg tab ORAL SCH ×3 (06:47→16:51)
[2017-07-16] MEDS: sitaGLIPtin 50mg tab ORAL SCH (06:48)
--- NOTE | 2017-07-16 07:14 | General Progress Note ---
Assessment/Plan Problem List: (1) Cellulitis of foot without toes ICD Codes: L03.119 - Cellulitis of unspecified part of limb SNOMED: 771444617 (2) Hyperlipidemia ICD Codes: E78.5 - Hyperlipidemia, unspecified SNOMED: 94184699 (3) Osteomyelitis ICD Codes: M86.9 - Osteomyelitis, unspecified SNOMED: 55476306 (4) Diabetes ICD Codes: E11.9 - Diabetes SNOMED: 98875689 (5) HTN (hypertension) ICD Codes: I10 - Essential (primary) hypertension SNOMED: 81685082 Assessment/Plan continue Januvia 50 mg daily continue Starlix 120 mg ac tid continue Metformin 500 mg tid DC Levemir continue NISS Subjective Allergies: Coded Allergies: No Known Allergies (Unverified , 11/16/14) All Systems: reviewed and negative except above Subjective events noted Objective Last 24 Hour Vital Signs Date Time Temp Pulse Resp B/P (MAP) Pulse Ox O2 Delivery O2 Flow Rate FiO2 07/16/17 04:00 98.8 79 18 105/61 97 98.8 07/16/17 00:00 98.0 78 18 107/66 96 98.0 07/15/17 20:00 98.0 79 18 111/67 97 98.0 07/15/17 16:00 98.2 91 19 117/70 99 98.2 07/15/17 12:00 97.9 85 19 115/72 96 97.9 07/15/17 08:00 98.1 88 19 119/73 100 98.1 Intake and Output 07/15/17 07/16/17 19:00 07:00 Intake Total 480 ml 375 ml Output Total 800 ml 900 ml Balance -320 ml -525 ml Intake Oral 480 ml 375 ml Output Urine Total 800 ml 900 ml # Bowel Movements 1 1 Height (Feet): 5 Height (Inches): 5.00 Weight (Pounds): 180 General Appearance: no apparent distress Neck: normal alignment Cardiovascular: normal rate Respiratory/Chest: lungs clear Abdomen: normal bowel sounds Objective Current Medications Medications (Trade) Dose Ordered Sig/Caden Route PRN Reason Start Time Stop Time Status Last Admin Dose Admin Clotrimazole (Lotrimin) 1 applic BID TOPIC 07/14/17 23:11 08/13/17 23:10 07/15/17 17:16 Dextrose (Dextrose 50%) 25 ml STAT PRN IV Hypoglycemia 07/12/17 07:15 08/11/17 07:14 Dextrose (Dextrose 50%) 50 ml STAT PRN IV Hypoglycemia 07/12/17 07:15 08/11/17 07:14 Heparin Sodium (Porcine) (Heparin 5000 units/ml) 5,000 units EVERY 12 HOURS SUBQ 07/12/17 21:00 07/20/17 10:25 07/15/17 21:37 Insulin Aspart (NovoLOG) BEFORE MEALS AND HS SUBQ 06/20/17 12:45 07/20/17 12:44 07/15/17 21:46 Insulin Detemir (Levemir) 6 units DAILY SUBQ 07/15/17 09:00 08/11/17 08:59 Metformin HCl (Glucophage) 500 mg TIAC ORAL 07/12/17 11:30 08/11/17 11:29 07/16/17 06:47 Nateglinide (Starlix) 120 mg TIAC ORAL 07/12/17 11:30 08/09/17 11:29 07/16/17 06:48 Ondansetron HCl (Zofran) 4 mg Q4H PRN IVP Nausea & Vomiting 07/07/17 08:00 08/06/17 07:59 07/07/17 09:15 Pantoprazole (Protonix) 40 mg ACBREAKFAST ORAL 07/14/17 06:30 08/13/17 06:29 07/16/17 06:48 Sitagliptin Phosphate (Januvia) 50 mg ACBREAKFAST ORAL 07/11/17 08:00 08/10/17 07:59 07/16/17 06:48 Sodium Hypochlorite (Dakin's Quarter Strength) 1 applic DAILY TOPIC 06/28/17 09:00 07/28/17 08:59 07/14/17 10:13 Item Value Date Time Bedside Blood Glucose 94 mg/dl 07/16/17 0630 Bedside Blood Glucose 173 mg/dl H 07/15/17 2146 Bedside Blood Glucose 153 mg/dl H 07/15/17 1721 Bedside Blood Glucose 177 mg/dl H 07/15/17 1138 Bedside Blood Glucose 96 mg/dl 07/15/17 0900 AUBREY LEWIS July 16, 2017 07:14
[2017-07-16 08:44] VITALS: BP 109/68
[2017-07-16] MEDS: Dakin's 0.125% Soln (Quarter Strength) 16oz TOPIC SCH (09:01)
[2017-07-16] MEDS: Heparin 5000 units/ml inj SUBQ SCH ×2 (09:03→21:49)
--- NOTE | 2017-07-16 11:35 | GI Progress Note ---
Assessment/Plan Problems: (1) ETOH abuse ICD Codes: F10.10 - Alcohol abuse, uncomplicated SNOMED: 98818227 (2) Failure to thrive SNOMED: 07466370 (3) GERD (gastroesophageal reflux disease) ICD Codes: K21.9 - GERD (gastroesophageal reflux disease) SNOMED: 660332969 (4) N&V (nausea and vomiting) ICD Codes: R11.2 - N&V (nausea and vomiting) SNOMED: 60495427 Status: deteriorating Status Narrative Discussed with Dr. Zapata. Assessment/Plan SUMMARY OF FINDINGS: Diffuse gastritis, status post biopsy, otherwise normal upper endoscopic examination. RECOMMENDATIONS: okay for DC per GI standpoint prn transfusion ppi tolerating diet bowel regime fu labs will need out patient colonoscopy The patient was seen and examined at bedside and all new and available data was reviewed in the patients chart. I agree with the above findings, impression and plan. (Patient seen earlier today. Signature stamp does not reflect patient encounter time.). - Shiraz Zapata MD Subjective Subjective limited Objective Last 24 Hour Vital Signs Date Time Temp Pulse Resp B/P (MAP) Pulse Ox O2 Delivery O2 Flow Rate FiO2 07/16/17 08:44 98.1 83 18 109/68 98 98.1 07/16/17 04:00 98.8 79 18 105/61 97 98.8 07/16/17 00:00 98.0 78 18 107/66 96 98.0 07/15/17 20:00 98.0 79 18 111/67 97 98.0 07/15/17 16:00 98.2 91 19 117/70 99 98.2 07/15/17 12:00 97.9 85 19 115/72 96 97.9 Intake and Output 07/15/17 07/16/17 19:00 07:00 Intake Total 480 ml 375 ml Output Total 800 ml 900 ml Balance -320 ml -525 ml Intake Oral 480 ml 375 ml Output Urine Total 800 ml 900 ml # Bowel Movements 1 1 Height (Feet): 5 Height (Inches): 5.00 Weight (Pounds): 180 General Appearance: WD/WN, no apparent distress, alert Cardiovascular: normal rate Respiratory/Chest: normal breath sounds, no respiratory distress Abdominal Exam: normal bowel sounds, non tender, soft Extremities: normal range of motion, non-tender Ontiveros,Carol Wilbert N.P. July 16, 2017 11:35 FELIPA ZAPATA July 20, 2017 12:58
[2017-07-16 11:58] VITALS: BP 112/66
--- NOTE | 2017-07-16 15:13 | Infectious Diseases Prog Note ---
Assessment/Plan Assessment/Plan The patient is a 66-year-old male with Coffee ground Emesis-?GIB, resolved -s/p EGD 07/08: Diffuse gastritis, status post biopsy, otherwise normal upper endoscopic examination. Low grade fever- possibly reactive to above- ; resolved, no PNA -CXR 07/07: No radiographic evidence of acute cardiopulmonary disease. Mild leukocytosis- posibly reactive- resolved Right foot cellulitis (resolved). right big toe. osteo , s/p Rx -MRI R foot: Findings suspicious for osteomyelitis of the distal aspect of the first distal phalanx -wound cx E.fecalis ([place] S), CoNS (likely represents colonizers) Fever, SP Normal white blood cells Influenza screening tests : Neg RP : 2.4 => 07/02 : 0.4 06/28 ESR : 74 => 07/02 : 31 Diabetes. Hyperlipidemia. Hypertension. Left BKA. History of alcohol abuse and smoking until recently. 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 PLAN: monitor pt off of IV AB Rx unless persistently febrile, new infiltrates in CXR and/or worsenign leukocytosis Clotrimazole topical If T>101, obtain 2 sets of Bcx - 07/01 SP IV vancomycin and Ceftriaxone and Flagyl ( abx d# 42/42 ) -05/24 SP Cefepime #4 Monitor CBC. Monitor BMP. Subjective Allergies: Coded Allergies: No Known Allergies (Unverified , 11/16/14) Subjective afebrile no leukocytosis off abx Objective Vital Signs Last 24 Hour Vital Signs Date Time Temp Pulse Resp B/P (MAP) Pulse Ox O2 Delivery O2 Flow Rate FiO2 07/16/17 11:58 98.2 85 18 112/66 98 98.2 07/16/17 08:44 98.1 83 18 109/68 98 98.1 07/16/17 04:00 98.8 79 18 105/61 97 98.8 07/16/17 00:00 98.0 78 18 107/66 96 98.0 07/15/17 20:00 98.0 79 18 111/67 97 98.0 07/15/17 16:00 98.2 91 19 117/70 99 98.2 Height (Feet): 5 Height (Inches): 5.00 Weight (Pounds): 180 Objective General Appearance: WD/WN HEENT: normocephalic, atraumatic Respiratory/Chest: chest wall non-tender, lungs clear Breasts: no masses Cardiovascular: normal peripheral pulses, regular rhythm Abdomen: normal bowel sounds, soft, non tender Genitourinary: normal external genitalia Extremities: no cyanosis, aka Skin: extensive keratic lesions on leg Current Medications Medications (Trade) Dose Ordered Sig/Caden Route PRN Reason Start Time Stop Time Status Last Admin Dose Admin Clotrimazole (Lotrimin) 1 applic BID TOPIC 07/14/17 23:11 08/13/17 23:10 07/16/17 09:01 Dextrose (Dextrose 50%) 25 ml STAT PRN IV Hypoglycemia 07/12/17 07:15 08/11/17 07:14 Dextrose (Dextrose 50%) 50 ml STAT PRN IV Hypoglycemia 07/12/17 07:15 08/11/17 07:14 Heparin Sodium (Porcine) (Heparin 5000 units/ml) 5,000 units EVERY 12 HOURS SUBQ 07/12/17 21:00 07/20/17 10:25 07/16/17 09:03 Insulin Aspart (NovoLOG) BEFORE MEALS AND HS SUBQ 06/20/17 12:45 07/20/17 12:44 07/15/17 21:46 Metformin HCl (Glucophage) 500 mg TIAC ORAL 07/12/17 11:30 08/11/17 11:29 07/16/17 12:04 Nateglinide (Starlix) 120 mg TIAC ORAL 07/12/17 11:30 08/09/17 11:29 07/16/17 12:04 Ondansetron HCl (Zofran) 4 mg Q4H PRN IVP Nausea & Vomiting 07/07/17 08:00 08/06/17 07:59 07/07/17 09:15 Pantoprazole (Protonix) 40 mg ACBREAKFAST ORAL 07/14/17 06:30 08/13/17 06:29 07/16/17 06:48 Sitagliptin Phosphate (Januvia) 50 mg ACBREAKFAST ORAL 07/11/17 08:00 08/10/17 07:59 07/16/17 06:48 Sodium Hypochlorite (Dakin's Quarter Strength) 1 applic DAILY TOPIC 06/28/17 09:00 07/28/17 08:59 07/16/17 09:01 Dena Frank M.D. July 16, 2017 15:13
--- NOTE | 2017-07-16 15:51 | Pulmonology Progress Note ---
Assessment/Plan Problems: (1) Osteomyelitis of ankle or foot, acute (2) Cellulitis of right lower extremity (3) Ulcer of heel and midfoot (4) ETOH abuse (5) HTN (hypertension) (6) Diabetes (7) Anemia (8) S/P BKA (below knee amputation) Assessment/Plan doing great all reviewed no new events skin getting much better pt/ot reordered eating better, dc planning in process \ Subjective ROS Limited/Unobtainable: No Constitutional: Reports: no symptoms HEENT: Repors: no symptoms Respiratory: Reports: no symptoms Allergies: Coded Allergies: No Known Allergies (Unverified , 11/16/14) Objective Last 24 Hour Vital Signs Date Time Temp Pulse Resp B/P (MAP) Pulse Ox O2 Delivery O2 Flow Rate FiO2 07/16/17 11:58 98.2 85 18 112/66 98 98.2 07/16/17 08:44 98.1 83 18 109/68 98 98.1 07/16/17 04:00 98.8 79 18 105/61 97 98.8 07/16/17 00:00 98.0 78 18 107/66 96 98.0 07/15/17 20:00 98.0 79 18 111/67 97 98.0 07/15/17 16:00 98.2 91 19 117/70 99 98.2 Intake and Output 07/15/17 07/16/17 19:00 07:00 Intake Total 480 ml 375 ml Output Total 800 ml 900 ml Balance -320 ml -525 ml Intake Oral 480 ml 375 ml Output Urine Total 800 ml 900 ml # Bowel Movements 1 1 Objective General Appearance: WD/WN HEENT: normocephalic, atraumatic Respiratory/Chest: chest wall non-tender, lungs clear Breasts: no masses Cardiovascular: normal peripheral pulses, regular rhythm Abdomen: normal bowel sounds, soft, non tender Genitourinary: normal external genitalia Extremities: no cyanosis, aka Skin: extensive keratic lesions on leg Current Medications Medications (Trade) Dose Ordered Sig/Caden Route PRN Reason Start Time Stop Time Status Last Admin Dose Admin Clotrimazole (Lotrimin) 1 applic BID TOPIC 07/14/17 23:11 08/13/17 23:10 07/16/17 09:01 Dextrose (Dextrose 50%) 25 ml STAT PRN IV Hypoglycemia 07/12/17 07:15 08/11/17 07:14 Dextrose (Dextrose 50%) 50 ml STAT PRN IV Hypoglycemia 07/12/17 07:15 08/11/17 07:14 Heparin Sodium (Porcine) (Heparin 5000 units/ml) 5,000 units EVERY 12 HOURS SUBQ 07/12/17 21:00 07/20/17 10:25 07/16/17 09:03 Insulin Aspart (NovoLOG) BEFORE MEALS AND HS SUBQ 06/20/17 12:45 07/20/17 12:44 07/15/17 21:46 Metformin HCl (Glucophage) 500 mg TIAC ORAL 07/12/17 11:30 08/11/17 11:29 07/16/17 12:04 Nateglinide (Starlix) 120 mg TIAC ORAL 07/12/17 11:30 08/09/17 11:29 07/16/17 12:04 Ondansetron HCl (Zofran) 4 mg Q4H PRN IVP Nausea & Vomiting 07/07/17 08:00 08/06/17 07:59 07/07/17 09:15 Pantoprazole (Protonix) 40 mg ACBREAKFAST ORAL 07/14/17 06:30 08/13/17 06:29 07/16/17 06:48 Sitagliptin Phosphate (Januvia) 50 mg ACBREAKFAST ORAL 07/11/17 08:00 08/10/17 07:59 07/16/17 06:48 Sodium Hypochlorite (Dakin's Quarter Strength) 1 applic DAILY TOPIC 06/28/17 09:00 07/28/17 08:59 07/16/17 09:01 Kyra Massey MD July 16, 2017 15:51
[2017-07-16 15:57] VITALS: BP 106/66
--- NOTE | 2017-07-16 16:10 | Internal Med Progress Note ---
Subjective Date of Service: July 16, 2017 Physician Name Daniel Wright Attending Physician Tello Fay MD Current Medications Medications (Trade) Dose Ordered Sig/Caden Route PRN Reason Start Time Stop Time Status Last Admin Dose Admin Clotrimazole (Lotrimin) 1 applic BID TOPIC 07/14/17 23:11 08/13/17 23:10 07/16/17 09:01 Dextrose (Dextrose 50%) 25 ml STAT PRN IV Hypoglycemia 07/12/17 07:15 08/11/17 07:14 Dextrose (Dextrose 50%) 50 ml STAT PRN IV Hypoglycemia 07/12/17 07:15 08/11/17 07:14 Heparin Sodium (Porcine) (Heparin 5000 units/ml) 5,000 units EVERY 12 HOURS SUBQ 07/12/17 21:00 07/20/17 10:25 07/16/17 09:03 Insulin Aspart (NovoLOG) BEFORE MEALS AND HS SUBQ 06/20/17 12:45 07/20/17 12:44 07/15/17 21:46 Metformin HCl (Glucophage) 500 mg TIAC ORAL 07/12/17 11:30 08/11/17 11:29 07/16/17 12:04 Nateglinide (Starlix) 120 mg TIAC ORAL 07/12/17 11:30 08/09/17 11:29 07/16/17 12:04 Ondansetron HCl (Zofran) 4 mg Q4H PRN IVP Nausea & Vomiting 07/07/17 08:00 08/06/17 07:59 07/07/17 09:15 Pantoprazole (Protonix) 40 mg ACBREAKFAST ORAL 07/14/17 06:30 08/13/17 06:29 07/16/17 06:48 Sitagliptin Phosphate (Januvia) 50 mg ACBREAKFAST ORAL 07/11/17 08:00 08/10/17 07:59 07/16/17 06:48 Sodium Hypochlorite (Dakin's Quarter Strength) 1 applic DAILY TOPIC 06/28/17 09:00 07/28/17 08:59 07/16/17 09:01 Allergies: Coded Allergies: No Known Allergies (Unverified , 11/16/14) ROS Limited/Unobtainable: No Constitutional: Reports: no symptoms HEENT: Reports: no symptoms Cardiovascular: Reports: no symptoms Respiratory: Reports: no symptoms Gastrointestinal/Abdominal: Reports: no symptoms Genitourinary: Reports: no symptoms Neurologic/Psychiatric: Reports: no symptoms Subjective 66 YO M admitted with right foot cellulitis. Now osteomyelitis. Cover for Int Med-Dr Fay. Objective Last Vital Signs Date Time Temp Pulse Resp B/P (MAP) Pulse Ox O2 Delivery O2 Flow Rate FiO2 07/16/17 15:57 97.8 87 18 106/66 98 97.8 07/15/17 04:00 Room Air 07/08/17 12:30 6.0 Intake and Output 07/15/17 07/16/17 19:00 07:00 Intake Total 480 ml 375 ml Output Total 800 ml 900 ml Balance -320 ml -525 ml Intake Oral 480 ml 375 ml Output Urine Total 800 ml 900 ml # Bowel Movements 1 1 Objective Objective General: No acute distress, awake and alert HEENT: NCAT, sclera anicteric, PERRL, EOMI. Neck: Supple, no significant jugular venous distention, Lungs: Good inspiratory effort, clear to auscultation bilaterally, no Wheeze or Rales. Heart: Regular rate and rhythm, normal S1/S2, no murmur Abdomen: soft, nontender, nondistended. Normoactive bowel sounds. Extremities: No Cyanosis , clubbing or edema. Left LE BKA, Right foot dressing intact. Neuro: A&O x 3, Motor intact. Skin: warm, no rashes or lesions Psych: Normal mood and affect Assessment/Plan Problem List: (1) S/P BKA (below knee amputation) unilateral (2) Diabetes mellitus, type II Assessment & Plan: Continue levemir, humalog, starlix, glucophage and januvia (3) Hypercholesteremia (4) Cellulitis of right lower extremity Assessment & Plan: 1st distal phalanx-see ID note. monitor off antibiotic (5) Ulcer of heel and midfoot (6) Osteomyelitis of ankle or foot, acute Assessment & Plan: Off antibiotic per ID (7) HTN (hypertension) (8) Gastritis Assessment & Plan: Protonix (9) Hemorrhage of gastrointestinal tract Assessment & Plan: S/P EGD on 07/08/17-see GI note. Status: stable DANIEL WRIGHT July 16, 2017 16:10
[2017-07-16 20:00] VITALS: BP 118/63
[2017-07-17] VITALS: BP 121/69
[2017-07-17 04:00] VITALS: BP 129/75
[2017-07-17] MEDS: NovoLOG Insulin Flexpen SUBQ SCH ×4 (06:12→21:00)
[2017-07-17] MEDS: sitaGLIPtin 50mg tab ORAL SCH (06:16)
[2017-07-17] MEDS: metFORMIN 500mg tab ORAL SCH ×3 (06:16→16:41)
[2017-07-17 08:10] VITALS: BP 124/72
[2017-07-17] MEDS: Heparin 5000 units/ml inj SUBQ SCH ×2 (09:02→21:44)
[2017-07-17 09:03] LABS: BASOPHILS % (AUTO) 1.3 % (0.0-2.0); EOSINOPHILS % (AUTO) 4.6 % (0.0-3.0); HEMATOCRIT 32.4 % (42.0-52.0); HEMOGLOBIN 11.1 G/DL (14.2-18.0); LYMPHOCYTES % (AUTO) 30.8 % (20.0-45.0); MEAN CORPUSCULAR VOLUME 83 FL (80-99); MONOCYTES % (AUTO) 6.4 % (1.0-10.0); NEUTROPHILS % (AUTO) 56.9 % (45.0-75.0); PLATELET COUNT 215 K/UL (150-450); RED BLOOD COUNT 3.89 M/UL (4.70-6.10); RED CELL DISTRIBUTION WIDTH 11.5 % (11.6-14.8); WHITE BLOOD COUNT 8.6 K/UL (4.8-10.8)
[2017-07-17] MEDS: Dakin's 0.125% Soln (Quarter Strength) 16oz TOPIC SCH (09:03)
[2017-07-17 09:38] LABS: ANION GAP 11 mmol/L (5-15); BLOOD UREA NITROGEN 17 mg/dL (7-18); CALCIUM 8.6 MG/DL (8.5-10.1); CARBON DIOXIDE 23 MMOL/L (21-32); CHLORIDE 106 MMOL/L (98-107); CREATININE 1.1 MG/DL (0.55-1.30); SODIUM 140 MMOL/L (136-145)
--- NOTE | 2017-07-17 10:25 | General Progress Note ---
Assessment/Plan Problem List: (1) Cellulitis of foot without toes ICD Codes: L03.119 - Cellulitis of unspecified part of limb SNOMED: 201821049 (2) Hyperlipidemia ICD Codes: E78.5 - Hyperlipidemia, unspecified SNOMED: 48235848 (3) Osteomyelitis ICD Codes: M86.9 - Osteomyelitis, unspecified SNOMED: 20092081 (4) Diabetes ICD Codes: E11.9 - Diabetes SNOMED: 89136733 (5) HTN (hypertension) ICD Codes: I10 - Essential (primary) hypertension SNOMED: 60848844 Assessment/Plan continue Januvia 50 mg daily continue Starlix 120 mg ac tid continue Metformin 500 mg tid continue NISS Subjective Allergies: Coded Allergies: No Known Allergies (Unverified , 11/16/14) All Systems: reviewed and negative except above Subjective events noted Objective Last 24 Hour Vital Signs Date Time Temp Pulse Resp B/P (MAP) Pulse Ox O2 Delivery O2 Flow Rate FiO2 07/17/17 08:10 97.9 86 20 124/72 95 97.9 07/17/17 08:10 Room Air 07/17/17 04:00 97.4 81 17 129/75 97 Room Air 97.4 07/17/17 00:00 97.9 79 20 121/69 98 Room Air 97.9 07/16/17 20:00 98.1 85 19 118/63 97 Room Air 98.1 07/16/17 15:57 97.8 87 18 106/66 98 97.8 07/16/17 11:58 98.2 85 18 112/66 98 98.2 Intake and Output 07/16/17 07/17/17 19:00 07:00 Intake Total 840 ml Output Total 400 ml Balance 440 ml Intake Oral 840 ml Output Urine Total 400 ml # Voids 3 # Bowel Movements 1 Laboratory Tests 07/17/17 08:25: White Blood Count 8.6, Red Blood Count 3.89L, Hemoglobin 11.1L, Hematocrit 32.4L , Mean Corpuscular Volume 83, Mean Corpuscular Hemoglobin 28.5, Mean Corpuscular Hemoglobin Concent 34.1, Red Cell Distribution Width 11.5L, Platelet Count 215, Mean Platelet Volume 8.9, Neutrophils (%) (Auto) 56.9, Lymphocytes (%) (Auto) 30.8, Monocytes (%) (Auto) 6.4, Eosinophils (%) (Auto) 4.6H, Basophils (%) (Auto) 1.3, Sodium Level 140, Potassium Level 4.0, Chloride Level 106, Carbon Dioxide Level 23, Anion Gap 11, Blood Urea Nitrogen 17, Creatinine 1.1, Estimat Glomerular Filtration Rate > 60, Glucose Level 103, Calcium Level 8.6 Height (Feet): 5 Height (Inches): 5.00 Weight (Pounds): 180 General Appearance: no apparent distress Neck: normal alignment Cardiovascular: normal rate Respiratory/Chest: lungs clear Abdomen: normal bowel sounds Objective Current Medications Medications (Trade) Dose Ordered Sig/Caden Route PRN Reason Start Time Stop Time Status Last Admin Dose Admin Clotrimazole (Lotrimin) 1 applic BID TOPIC 07/14/17 23:11 08/13/17 23:10 07/17/17 09:03 Dextrose (Dextrose 50%) 25 ml STAT PRN IV Hypoglycemia 07/12/17 07:15 08/11/17 07:14 Dextrose (Dextrose 50%) 50 ml STAT PRN IV Hypoglycemia 07/12/17 07:15 08/11/17 07:14 Heparin Sodium (Porcine) (Heparin 5000 units/ml) 5,000 units EVERY 12 HOURS SUBQ 07/12/17 21:00 07/20/17 10:25 07/17/17 09:02 Insulin Aspart (NovoLOG) BEFORE MEALS AND HS SUBQ 06/20/17 12:45 07/20/17 12:44 07/16/17 16:53 Metformin HCl (Glucophage) 500 mg TIAC ORAL 07/12/17 11:30 08/11/17 11:29 07/17/17 06:16 Nateglinide (Starlix) 120 mg TIAC ORAL 07/12/17 11:30 08/09/17 11:29 07/17/17 06:16 Ondansetron HCl (Zofran) 4 mg Q4H PRN IVP Nausea & Vomiting 07/07/17 08:00 08/06/17 07:59 07/07/17 09:15 Pantoprazole (Protonix) 40 mg ACBREAKFAST ORAL 07/14/17 06:30 08/13/17 06:29 07/17/17 06:16 Sitagliptin Phosphate (Januvia) 50 mg ACBREAKFAST ORAL 07/11/17 08:00 08/10/17 07:59 07/17/17 06:16 Sodium Hypochlorite (Dakin's Quarter Strength) 1 applic DAILY TOPIC 06/28/17 09:00 07/28/17 08:59 07/17/17 09:03 Item Value Date Time Bedside Blood Glucose 99 mg/dl 07/17/17 0630 Bedside Blood Glucose 132 mg/dl H 07/16/17 2100 Bedside Blood Glucose 117 mg/dl 07/16/17 1653 Bedside Blood Glucose 88 mg/dl 07/16/17 1130 Bedside Blood Glucose 94 mg/dl 07/16/17 0630 AUBREY LEWIS July 17, 2017 10:25
[2017-07-17 11:54] VITALS: BP 130/74
--- NOTE | 2017-07-17 12:07 | Infectious Diseases Prog Note ---
Assessment/Plan Assessment/Plan The patient is a 66-year-old male with Coffee ground Emesis-?GIB, resolved -s/p EGD 07/08: Diffuse gastritis, status post biopsy, otherwise normal upper endoscopic examination. Low grade fever- possibly reactive to above- ; resolved, no PNA -CXR 07/07: No radiographic evidence of acute cardiopulmonary disease. Mild leukocytosis- posibly reactive- resolved Right foot cellulitis (resolved). right big toe. osteo , s/p Rx -MRI R foot: Findings suspicious for osteomyelitis of the distal aspect of the first distal phalanx -wound cx E.fecalis ([place] S), CoNS (likely represents colonizers) Fever, SP Normal white blood cells Influenza screening tests : Neg RP : 2.4 => 07/02 : 0.4 06/28 ESR : 74 => 07/02 : 31 Diabetes. Hyperlipidemia. Hypertension. Left BKA. History of alcohol abuse and smoking until recently. 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 PLAN: monitor pt off of IV AB Rx unless persistently febrile, new infiltrates in CXR and/or worsenign leukocytosis Clotrimazole topical If T>101, obtain 2 sets of Bcx - 07/01 SP IV vancomycin and Ceftriaxone and Flagyl ( abx d# 42/42 ) -05/24 SP Cefepime #4 Monitor CBC. Monitor BMP. Subjective Allergies: Coded Allergies: No Known Allergies (Unverified , 11/16/14) Subjective afebrile no leukocytosis off abx Objective Vital Signs Last 24 Hour Vital Signs Date Time Temp Pulse Resp B/P (MAP) Pulse Ox O2 Delivery O2 Flow Rate FiO2 07/17/17 11:54 98.0 75 20 130/74 97 98.0 07/17/17 08:10 97.9 86 20 124/72 95 97.9 07/17/17 08:10 Room Air 07/17/17 04:00 97.4 81 17 129/75 97 Room Air 97.4 07/17/17 00:00 97.9 79 20 121/69 98 Room Air 97.9 07/16/17 20:00 98.1 85 19 118/63 97 Room Air 98.1 07/16/17 15:57 97.8 87 18 106/66 98 97.8 Height (Feet): 5 Height (Inches): 5.00 Weight (Pounds): 180 Objective General Appearance: WD/WN HEENT: normocephalic, atraumatic Respiratory/Chest: chest wall non-tender, lungs clear Breasts: no masses Cardiovascular: normal peripheral pulses, regular rhythm Abdomen: normal bowel sounds, soft, non tender Genitourinary: normal external genitalia Extremities: no cyanosis, aka Skin: extensive keratic lesions on leg Laboratory Tests Test 07/17/17 08:25 White Blood Count 8.6 K/UL (4.8-10.8) Red Blood Count 3.89 M/UL (4.70-6.10) L Hemoglobin 11.1 G/DL (14.2-18.0) L Hematocrit 32.4 % (42.0-52.0) L Mean Corpuscular Volume 83 FL (80-99) Mean Corpuscular Hemoglobin 28.5 PG (27.0-31.0) Mean Corpuscular Hemoglobin Concent 34.1 G/DL (32.0-36.0) Red Cell Distribution Width 11.5 % (11.6-14.8) L Platelet Count 215 K/UL (150-450) Mean Platelet Volume 8.9 FL (6.5-10.1) Neutrophils (%) (Auto) 56.9 % (45.0-75.0) Lymphocytes (%) (Auto) 30.8 % (20.0-45.0) Monocytes (%) (Auto) 6.4 % (1.0-10.0) Eosinophils (%) (Auto) 4.6 % (0.0-3.0) H Basophils (%) (Auto) 1.3 % (0.0-2.0) Sodium Level 140 MMOL/L (136-145) Potassium Level 4.0 MMOL/L (3.5-5.1) Chloride Level 106 MMOL/L (98-107) Carbon Dioxide Level 23 MMOL/L (21-32) Anion Gap 11 mmol/L (5-15) Blood Urea Nitrogen 17 mg/dL (7-18) Creatinine 1.1 MG/DL (0.55-1.30) Estimat Glomerular Filtration Rate > 60 mL/min (>60) Glucose Level 103 MG/DL (74-106) Calcium Level 8.6 MG/DL (8.5-10.1) Current Medications Medications (Trade) Dose Ordered Sig/Caden Route PRN Reason Start Time Stop Time Status Last Admin Dose Admin Clotrimazole (Lotrimin) 1 applic BID TOPIC 07/14/17 23:11 08/13/17 23:10 07/17/17 09:03 Dextrose (Dextrose 50%) 25 ml STAT PRN IV Hypoglycemia 07/12/17 07:15 08/11/17 07:14 Dextrose (Dextrose 50%) 50 ml STAT PRN IV Hypoglycemia 07/12/17 07:15 08/11/17 07:14 Heparin Sodium (Porcine) (Heparin 5000 units/ml) 5,000 units EVERY 12 HOURS SUBQ 07/12/17 21:00 07/20/17 10:25 07/17/17 09:02 Insulin Aspart (NovoLOG) BEFORE MEALS AND HS SUBQ 06/20/17 12:45 07/20/17 12:44 07/16/17 16:53 Metformin HCl (Glucophage) 500 mg TIAC ORAL 07/12/17 11:30 08/11/17 11:29 07/17/17 06:16 Nateglinide (Starlix) 120 mg TIAC ORAL 07/12/17 11:30 08/09/17 11:29 07/17/17 06:16 Ondansetron HCl (Zofran) 4 mg Q4H PRN IVP Nausea & Vomiting 07/07/17 08:00 08/06/17 07:59 07/07/17 09:15 Pantoprazole (Protonix) 40 mg ACBREAKFAST ORAL 07/14/17 06:30 08/13/17 06:29 07/17/17 06:16 Sitagliptin Phosphate (Januvia) 50 mg ACBREAKFAST ORAL 07/11/17 08:00 08/10/17 07:59 07/17/17 06:16 Sodium Hypochlorite (Dakin's Quarter Strength) 1 applic DAILY TOPIC 06/28/17 09:00 07/28/17 08:59 07/17/17 09:03 Dena Frank M.D. July 17, 2017 12:07
--- NOTE | 2017-07-17 13:58 | Internal Med Progress Note ---
Subjective Date of Service: July 17, 2017 Physician Name Daniel Wright Attending Physician Tello Fay MD Current Medications Medications (Trade) Dose Ordered Sig/Caden Route PRN Reason Start Time Stop Time Status Last Admin Dose Admin Clotrimazole (Lotrimin) 1 applic BID TOPIC 07/14/17 23:11 08/13/17 23:10 07/17/17 09:03 Dextrose (Dextrose 50%) 25 ml STAT PRN IV Hypoglycemia 07/12/17 07:15 08/11/17 07:14 Dextrose (Dextrose 50%) 50 ml STAT PRN IV Hypoglycemia 07/12/17 07:15 08/11/17 07:14 Heparin Sodium (Porcine) (Heparin 5000 units/ml) 5,000 units EVERY 12 HOURS SUBQ 07/12/17 21:00 07/20/17 10:25 07/17/17 09:02 Insulin Aspart (NovoLOG) BEFORE MEALS AND HS SUBQ 06/20/17 12:45 07/20/17 12:44 07/16/17 16:53 Metformin HCl (Glucophage) 500 mg TIAC ORAL 07/12/17 11:30 08/11/17 11:29 07/17/17 12:18 Nateglinide (Starlix) 120 mg TIAC ORAL 07/12/17 11:30 08/09/17 11:29 07/17/17 12:18 Ondansetron HCl (Zofran) 4 mg Q4H PRN IVP Nausea & Vomiting 07/07/17 08:00 08/06/17 07:59 07/07/17 09:15 Pantoprazole (Protonix) 40 mg ACBREAKFAST ORAL 07/14/17 06:30 08/13/17 06:29 07/17/17 06:16 Sitagliptin Phosphate (Januvia) 50 mg ACBREAKFAST ORAL 07/11/17 08:00 08/10/17 07:59 07/17/17 06:16 Sodium Hypochlorite (Dakin's Quarter Strength) 1 applic DAILY TOPIC 06/28/17 09:00 07/28/17 08:59 07/17/17 09:03 Allergies: Coded Allergies: No Known Allergies (Unverified , 11/16/14) ROS Limited/Unobtainable: No Constitutional: Reports: no symptoms HEENT: Reports: no symptoms Cardiovascular: Reports: no symptoms Respiratory: Reports: no symptoms Gastrointestinal/Abdominal: Reports: no symptoms Genitourinary: Reports: no symptoms Neurologic/Psychiatric: Reports: no symptoms Subjective 66 YO M admitted with right foot cellulitis. Now osteomyelitis. Cover for Int Med-Dr Fay. Objective Last Vital Signs Date Time Temp Pulse Resp B/P (MAP) Pulse Ox O2 Delivery O2 Flow Rate FiO2 07/17/17 11:54 98.0 75 20 130/74 97 98.0 07/17/17 08:10 Room Air 07/08/17 12:30 6.0 Laboratory Tests Test 07/17/17 08:25 White Blood Count 8.6 K/UL (4.8-10.8) Red Blood Count 3.89 M/UL (4.70-6.10) L Hemoglobin 11.1 G/DL (14.2-18.0) L Hematocrit 32.4 % (42.0-52.0) L Mean Corpuscular Volume 83 FL (80-99) Mean Corpuscular Hemoglobin 28.5 PG (27.0-31.0) Mean Corpuscular Hemoglobin Concent 34.1 G/DL (32.0-36.0) Red Cell Distribution Width 11.5 % (11.6-14.8) L Platelet Count 215 K/UL (150-450) Mean Platelet Volume 8.9 FL (6.5-10.1) Neutrophils (%) (Auto) 56.9 % (45.0-75.0) Lymphocytes (%) (Auto) 30.8 % (20.0-45.0) Monocytes (%) (Auto) 6.4 % (1.0-10.0) Eosinophils (%) (Auto) 4.6 % (0.0-3.0) H Basophils (%) (Auto) 1.3 % (0.0-2.0) Sodium Level 140 MMOL/L (136-145) Potassium Level 4.0 MMOL/L (3.5-5.1) Chloride Level 106 MMOL/L (98-107) Carbon Dioxide Level 23 MMOL/L (21-32) Anion Gap 11 mmol/L (5-15) Blood Urea Nitrogen 17 mg/dL (7-18) Creatinine 1.1 MG/DL (0.55-1.30) Estimat Glomerular Filtration Rate > 60 mL/min (>60) Glucose Level 103 MG/DL (74-106) Calcium Level 8.6 MG/DL (8.5-10.1) Intake and Output 07/16/17 07/17/17 19:00 07:00 Intake Total 840 ml Output Total 400 ml Balance 440 ml Intake Oral 840 ml Output Urine Total 400 ml # Voids 3 # Bowel Movements 1 Objective Objective General: No acute distress, awake and alert HEENT: NCAT, sclera anicteric, PERRL, EOMI. Neck: Supple, no significant jugular venous distention, Lungs: Good inspiratory effort, clear to auscultation bilaterally, no Wheeze or Rales. Heart: Regular rate and rhythm, normal S1/S2, no murmur Abdomen: soft, nontender, nondistended. Normoactive bowel sounds. Extremities: No Cyanosis , clubbing or edema. Left LE BKA, Right foot dressing intact. Neuro: A&O x 3, Motor intact. Skin: warm, no rashes or lesions Psych: Normal mood and affect Assessment/Plan Problem List: (1) S/P BKA (below knee amputation) unilateral (2) Diabetes mellitus, type II Assessment & Plan: Continue levemir, humalog, starlix, glucophage and januvia (3) Hypercholesteremia (4) Cellulitis of right lower extremity Assessment & Plan: 1st distal phalanx-see ID note. monitor off antibiotic (5) Ulcer of heel and midfoot (6) Osteomyelitis of ankle or foot, acute Assessment & Plan: Off antibiotic per ID (7) HTN (hypertension) (8) Gastritis Assessment & Plan: Protonix (9) Hemorrhage of gastrointestinal tract Assessment & Plan: S/P EGD on 07/08/17-see GI note. Status: stable DANIEL WRIGHT July 17, 2017 13:58
[2017-07-17 16:06] VITALS: BP 137/81
[2017-07-17 20:00] VITALS: BP 129/78
[2017-07-18] VITALS: BP 131/80
[2017-07-18 04:00] VITALS: BP 126/79
[2017-07-18] MEDS: NovoLOG Insulin Flexpen SUBQ SCH ×4 (06:30→21:32)
[2017-07-18] MEDS: metFORMIN 500mg tab ORAL SCH ×3 (06:38→16:30)
[2017-07-18] MEDS: sitaGLIPtin 50mg tab ORAL SCH (06:38)
[2017-07-18 08:00] VITALS: BP 121/72
[2017-07-18] MEDS: Heparin 5000 units/ml inj SUBQ SCH ×2 (09:05→21:35)
[2017-07-18] MEDS: Dakin's 0.125% Soln (Quarter Strength) 16oz TOPIC SCH (09:06)
--- NOTE | 2017-07-18 11:09 | General Progress Note ---
Assessment/Plan Problem List: (1) Cellulitis of foot without toes ICD Codes: L03.119 - Cellulitis of unspecified part of limb SNOMED: 150634036 (2) Hyperlipidemia ICD Codes: E78.5 - Hyperlipidemia, unspecified SNOMED: 00865828 (3) Osteomyelitis ICD Codes: M86.9 - Osteomyelitis, unspecified SNOMED: 79404485 (4) Diabetes ICD Codes: E11.9 - Diabetes SNOMED: 23781296 (5) HTN (hypertension) ICD Codes: I10 - Essential (primary) hypertension SNOMED: 31030867 Assessment/Plan continue Januvia 50 mg daily continue Starlix 120 mg ac tid continue Metformin 500 mg tid continue NISS Subjective Allergies: Coded Allergies: No Known Allergies (Unverified , 11/16/14) All Systems: reviewed and negative except above Subjective events noted Objective Last 24 Hour Vital Signs Date Time Temp Pulse Resp B/P (MAP) Pulse Ox O2 Delivery O2 Flow Rate FiO2 07/18/17 08:00 97.9 79 18 121/72 97 Room Air 97.9 07/18/17 04:00 97.9 82 20 126/79 97 Room Air 97.9 07/18/17 00:00 97.9 79 18 131/80 97 Room Air 97.9 07/17/17 20:00 98.2 89 19 129/78 98 Room Air 98.2 07/17/17 16:06 Room Air 07/17/17 16:06 98.2 77 20 137/81 96 98.2 07/17/17 11:54 Room Air 07/17/17 11:54 98.0 75 20 130/74 97 98.0 Intake and Output 07/17/17 07/18/17 19:00 07:00 Intake Total 720 ml 720 ml Output Total 1000 ml Balance -280 ml 720 ml Intake Oral 720 ml 720 ml Output Urine Total 1000 ml # Voids 4 # Bowel Movements 1 Height (Feet): 5 Height (Inches): 5.00 Weight (Pounds): 180 General Appearance: no apparent distress Neck: normal alignment Cardiovascular: normal rate Respiratory/Chest: lungs clear Abdomen: normal bowel sounds Objective Current Medications Medications (Trade) Dose Ordered Sig/Caden Route PRN Reason Start Time Stop Time Status Last Admin Dose Admin Clotrimazole (Lotrimin) 1 applic BID TOPIC 07/14/17 23:11 08/13/17 23:10 07/18/17 09:06 Dextrose (Dextrose 50%) 25 ml STAT PRN IV Hypoglycemia 07/12/17 07:15 08/11/17 07:14 Dextrose (Dextrose 50%) 50 ml STAT PRN IV Hypoglycemia 07/12/17 07:15 08/11/17 07:14 Heparin Sodium (Porcine) (Heparin 5000 units/ml) 5,000 units EVERY 12 HOURS SUBQ 07/12/17 21:00 07/20/17 10:25 07/18/17 09:05 Insulin Aspart (NovoLOG) BEFORE MEALS AND HS SUBQ 06/20/17 12:45 07/20/17 12:44 07/16/17 16:53 Metformin HCl (Glucophage) 500 mg TIAC ORAL 07/12/17 11:30 08/11/17 11:29 07/18/17 06:38 Nateglinide (Starlix) 120 mg TIAC ORAL 07/12/17 11:30 08/09/17 11:29 07/18/17 06:38 Ondansetron HCl (Zofran) 4 mg Q4H PRN IVP Nausea & Vomiting 07/07/17 08:00 08/06/17 07:59 07/07/17 09:15 Pantoprazole (Protonix) 40 mg ACBREAKFAST ORAL 07/14/17 06:30 08/13/17 06:29 07/18/17 06:38 Sitagliptin Phosphate (Januvia) 50 mg ACBREAKFAST ORAL 07/11/17 08:00 08/10/17 07:59 07/18/17 06:38 Sodium Hypochlorite (Dakin's Quarter Strength) 1 applic DAILY TOPIC 06/28/17 09:00 07/28/17 08:59 07/18/17 09:06 Item Value Date Time Bedside Blood Glucose 83 mg/dl 07/18/17 0630 Bedside Blood Glucose 125 mg/dl H 07/17/17 2100 Bedside Blood Glucose 115 mg/dl 07/17/17 1636 Bedside Blood Glucose 99 mg/dl 07/17/17 1207 UABREY LEWIS July 18, 2017 11:09
[2017-07-18 12:00] VITALS: BP 131/82
--- NOTE | 2017-07-18 14:03 | Internal Med Progress Note ---
Subjective Date of Service: July 18, 2017 Physician Name Daniel Wright Attending Physician Tello Fay MD Current Medications Medications (Trade) Dose Ordered Sig/Caden Route PRN Reason Start Time Stop Time Status Last Admin Dose Admin Clotrimazole (Lotrimin) 1 applic BID TOPIC 07/14/17 23:11 08/13/17 23:10 07/18/17 09:06 Dextrose (Dextrose 50%) 25 ml STAT PRN IV Hypoglycemia 07/12/17 07:15 08/11/17 07:14 Dextrose (Dextrose 50%) 50 ml STAT PRN IV Hypoglycemia 07/12/17 07:15 08/11/17 07:14 Heparin Sodium (Porcine) (Heparin 5000 units/ml) 5,000 units EVERY 12 HOURS SUBQ 07/12/17 21:00 07/20/17 10:25 07/18/17 09:05 Insulin Aspart (NovoLOG) BEFORE MEALS AND HS SUBQ 06/20/17 12:45 07/20/17 12:44 07/16/17 16:53 Metformin HCl (Glucophage) 500 mg TIAC ORAL 07/12/17 11:30 08/11/17 11:29 07/18/17 06:38 Nateglinide (Starlix) 120 mg TIAC ORAL 07/12/17 11:30 08/09/17 11:29 07/18/17 06:38 Ondansetron HCl (Zofran) 4 mg Q4H PRN IVP Nausea & Vomiting 07/07/17 08:00 08/06/17 07:59 07/07/17 09:15 Pantoprazole (Protonix) 40 mg ACBREAKFAST ORAL 07/14/17 06:30 08/13/17 06:29 07/18/17 06:38 Sitagliptin Phosphate (Januvia) 50 mg ACBREAKFAST ORAL 07/11/17 08:00 08/10/17 07:59 07/18/17 06:38 Sodium Hypochlorite (Dakin's Quarter Strength) 1 applic DAILY TOPIC 06/28/17 09:00 07/28/17 08:59 07/18/17 09:06 Allergies: Coded Allergies: No Known Allergies (Unverified , 11/16/14) ROS Limited/Unobtainable: No Constitutional: Reports: no symptoms HEENT: Reports: no symptoms Cardiovascular: Reports: no symptoms Respiratory: Reports: no symptoms Gastrointestinal/Abdominal: Reports: no symptoms Genitourinary: Reports: no symptoms Neurologic/Psychiatric: Reports: no symptoms Subjective 66 YO M admitted with right foot cellulitis. Now osteomyelitis. Cover for Int Med-Dr Fay. Objective Last Vital Signs Date Time Temp Pulse Resp B/P (MAP) Pulse Ox O2 Delivery O2 Flow Rate FiO2 07/18/17 12:00 97.2 82 18 131/82 99 Room Air 97.2 Intake and Output 07/17/17 07/18/17 19:00 07:00 Intake Total 720 ml 720 ml Output Total 1000 ml Balance -280 ml 720 ml Intake Oral 720 ml 720 ml Output Urine Total 1000 ml # Voids 4 # Bowel Movements 1 Objective Objective General: No acute distress, awake and alert HEENT: NCAT, sclera anicteric, PERRL, EOMI. Neck: Supple, no significant jugular venous distention, Lungs: Good inspiratory effort, clear to auscultation bilaterally, no Wheeze or Rales. Heart: Regular rate and rhythm, normal S1/S2, no murmur Abdomen: soft, nontender, nondistended. Normoactive bowel sounds. Extremities: No Cyanosis , clubbing or edema. Left LE BKA, Right foot dressing intact. Neuro: A&O x 3, Motor intact. Skin: warm, no rashes or lesions Psych: Normal mood and affect Assessment/Plan Problem List: (1) S/P BKA (below knee amputation) unilateral (2) Diabetes mellitus, type II Assessment & Plan: Continue levemir, humalog, starlix, glucophage and januvia (3) Hypercholesteremia (4) Cellulitis of right lower extremity Assessment & Plan: 1st distal phalanx-see ID note. monitor off antibiotic (5) Ulcer of heel and midfoot (6) Osteomyelitis of ankle or foot, acute Assessment & Plan: Off antibiotic per ID (7) HTN (hypertension) (8) Gastritis Assessment & Plan: Protonix (9) Hemorrhage of gastrointestinal tract Assessment & Plan: S/P EGD on 07/08/17-see GI note. Status: stable DANIEL WRIGHT July 18, 2017 14:03
[2017-07-18 16:00] VITALS: BP 115/74
[2017-07-18 19:55] VITALS: BP 113/69
[2017-07-19] VITALS: BP 109/56
[2017-07-19] MEDS: metFORMIN 500mg tab ORAL SCH ×2 (05:44→11:30)
[2017-07-19] MEDS: sitaGLIPtin 50mg tab ORAL SCH (05:44)
[2017-07-19] MEDS: NovoLOG Insulin Flexpen SUBQ SCH ×2 (06:52→11:30)
--- NOTE | 2017-07-19 07:05 | General Progress Note ---
Assessment/Plan Problem List: (1) Cellulitis of foot without toes ICD Codes: L03.119 - Cellulitis of unspecified part of limb SNOMED: 508973421 (2) Hyperlipidemia ICD Codes: E78.5 - Hyperlipidemia, unspecified SNOMED: 33830578 (3) Osteomyelitis ICD Codes: M86.9 - Osteomyelitis, unspecified SNOMED: 85535523 (4) Diabetes ICD Codes: E11.9 - Diabetes SNOMED: 49037819 (5) HTN (hypertension) ICD Codes: I10 - Essential (primary) hypertension SNOMED: 96908989 Assessment/Plan continue Januvia 50 mg daily DC Starlix 120 mg ac tid continue Metformin 500 mg tid continue NISS Subjective ROS Limited/Unobtainable: Yes Allergies: Coded Allergies: No Known Allergies (Unverified , 11/16/14) Subjective events noted refused all diabetic medications yesterday Objective Last 24 Hour Vital Signs Date Time Temp Pulse Resp B/P (MAP) Pulse Ox O2 Delivery O2 Flow Rate FiO2 07/19/17 00:00 98.4 95 18 109/56 96 98.4 07/18/17 19:55 98.6 97 18 113/69 97 98.6 07/18/17 16:00 96.6 95 18 115/74 97 Room Air 96.6 07/18/17 12:00 97.2 82 18 131/82 99 Room Air 97.2 07/18/17 08:00 97.9 79 18 121/72 97 Room Air 97.9 Intake and Output 07/18/17 07/19/17 19:00 07:00 Intake Total 840 ml 375 ml Output Total 1400 ml 600 ml Balance -560 ml -225 ml Intake Oral 840 ml 375 ml Output Urine Total 1400 ml 600 ml # Bowel Movements 1 Height (Feet): 5 Height (Inches): 5.00 Weight (Pounds): 180 General Appearance: no apparent distress Neck: normal alignment Cardiovascular: normal rate Respiratory/Chest: lungs clear Abdomen: normal bowel sounds Pelvis: normal external exam Objective Current Medications Medications (Trade) Dose Ordered Sig/Caden Route PRN Reason Start Time Stop Time Status Last Admin Dose Admin Clotrimazole (Lotrimin) 1 applic BID TOPIC 07/14/17 23:11 08/13/17 23:10 07/18/17 16:44 Dextrose (Dextrose 50%) 25 ml STAT PRN IV Hypoglycemia 07/12/17 07:15 08/11/17 07:14 Dextrose (Dextrose 50%) 50 ml STAT PRN IV Hypoglycemia 07/12/17 07:15 08/11/17 07:14 Heparin Sodium (Porcine) (Heparin 5000 units/ml) 5,000 units EVERY 12 HOURS SUBQ 07/12/17 21:00 07/20/17 10:25 07/18/17 21:35 Insulin Aspart (NovoLOG) BEFORE MEALS AND HS SUBQ 06/20/17 12:45 07/20/17 12:44 07/19/17 06:52 Metformin HCl (Glucophage) 500 mg TIAC ORAL 07/12/17 11:30 08/11/17 11:29 07/18/17 06:38 Nateglinide (Starlix) 120 mg TIAC ORAL 07/12/17 11:30 08/09/17 11:29 07/18/17 06:38 Ondansetron HCl (Zofran) 4 mg Q4H PRN IVP Nausea & Vomiting 07/07/17 08:00 08/06/17 07:59 07/07/17 09:15 Pantoprazole (Protonix) 40 mg ACBREAKFAST ORAL 07/14/17 06:30 08/13/17 06:29 07/18/17 06:38 Sitagliptin Phosphate (Januvia) 50 mg ACBREAKFAST ORAL 07/11/17 08:00 08/10/17 07:59 07/18/17 06:38 Sodium Hypochlorite (Dakin's Quarter Strength) 1 applic DAILY TOPIC 06/28/17 09:00 07/28/17 08:59 07/18/17 09:06 Item Value Date Time Bedside Blood Glucose 165 mg/dl H 07/19/17 0652 Bedside Blood Glucose 191 mg/dl H 07/18/17 2136 Bedside Blood Glucose 151 mg/dl H 07/18/17 1643 Bedside Blood Glucose 71 mg/dl 07/18/17 1137 Bedside Blood Glucose 83 mg/dl 07/18/17 0630 AUBREY LEWIS July 19, 2017 07:05
[2017-07-19 08:00] VITALS: BP 117/68
[2017-07-19] MEDS: Dakin's 0.125% Soln (Quarter Strength) 16oz TOPIC SCH (09:00)
[2017-07-19] MEDS: Heparin 5000 units/ml inj SUBQ SCH (09:04)
--- NOTE | 2017-07-19 10:59 | GI Progress Note ---
Assessment/Plan Problems: (1) ETOH abuse ICD Codes: F10.10 - Alcohol abuse, uncomplicated SNOMED: 04495401 (2) Failure to thrive SNOMED: 36777274 (3) GERD (gastroesophageal reflux disease) ICD Codes: K21.9 - GERD (gastroesophageal reflux disease) SNOMED: 047493978 (4) N&V (nausea and vomiting) ICD Codes: R11.2 - N&V (nausea and vomiting) SNOMED: 39790071 Status: stable Status Narrative Discussed with Dr. Zapata. Assessment/Plan SUMMARY OF FINDINGS: Diffuse gastritis, status post biopsy, otherwise normal upper endoscopic examination. RECOMMENDATIONS: okay for DC per GI standpoint prn transfusion ppi tolerating diet bowel regime fu labs will need out patient colonoscopy Subjective Subjective limited Objective Last 24 Hour Vital Signs Date Time Temp Pulse Resp B/P (MAP) Pulse Ox O2 Delivery O2 Flow Rate FiO2 07/19/17 08:00 97.7 75 18 117/68 97 97.7 07/19/17 00:00 98.4 95 18 109/56 96 98.4 07/18/17 19:55 98.6 97 18 113/69 97 98.6 07/18/17 16:00 96.6 95 18 115/74 97 Room Air 96.6 07/18/17 12:00 97.2 82 18 131/82 99 Room Air 97.2 Intake and Output 07/18/17 07/19/17 19:00 07:00 Intake Total 840 ml 375 ml Output Total 1400 ml 600 ml Balance -560 ml -225 ml Intake Oral 840 ml 375 ml Output Urine Total 1400 ml 600 ml # Bowel Movements 1 Height (Feet): 5 Height (Inches): 5.00 Weight (Pounds): 180 General Appearance: WD/WN, no apparent distress, alert Cardiovascular: normal rate Respiratory/Chest: normal breath sounds, no respiratory distress Abdominal Exam: normal bowel sounds, non tender, soft Extremities: normal range of motion, non-tender Carol Ontiveros N.P. July 19, 2017 10:59
--- NOTE | 2017-07-19 11:33 | Internal Med Progress Note ---
Subjective Date of Service: July 19, 2017 Physician Name Daniel Wright Attending Physician Tello Fay MD Current Medications Medications (Trade) Dose Ordered Sig/Caden Route PRN Reason Start Time Stop Time Status Last Admin Dose Admin Clotrimazole (Lotrimin) 1 applic BID TOPIC 07/14/17 23:11 08/13/17 23:10 07/19/17 09:03 Dextrose (Dextrose 50%) 25 ml STAT PRN IV Hypoglycemia 07/12/17 07:15 08/11/17 07:14 Dextrose (Dextrose 50%) 50 ml STAT PRN IV Hypoglycemia 07/12/17 07:15 08/11/17 07:14 Heparin Sodium (Porcine) (Heparin 5000 units/ml) 5,000 units EVERY 12 HOURS SUBQ 07/12/17 21:00 07/20/17 10:25 07/19/17 09:04 Insulin Aspart (NovoLOG) BEFORE MEALS AND HS SUBQ 06/20/17 12:45 07/20/17 12:44 07/19/17 06:52 Metformin HCl (Glucophage) 500 mg TIAC ORAL 07/12/17 11:30 08/11/17 11:29 07/18/17 06:38 Ondansetron HCl (Zofran) 4 mg Q4H PRN IVP Nausea & Vomiting 07/07/17 08:00 08/06/17 07:59 07/07/17 09:15 Pantoprazole (Protonix) 40 mg ACBREAKFAST ORAL 07/14/17 06:30 08/13/17 06:29 07/18/17 06:38 Sitagliptin Phosphate (Januvia) 50 mg ACBREAKFAST ORAL 07/11/17 08:00 08/10/17 07:59 07/18/17 06:38 Sodium Hypochlorite (Dakin's Quarter Strength) 1 applic DAILY TOPIC 06/28/17 09:00 07/28/17 08:59 07/18/17 09:06 Allergies: Coded Allergies: No Known Allergies (Unverified , 11/16/14) ROS Limited/Unobtainable: No Constitutional: Reports: no symptoms HEENT: Reports: no symptoms Cardiovascular: Reports: no symptoms Respiratory: Reports: no symptoms Gastrointestinal/Abdominal: Reports: no symptoms Genitourinary: Reports: no symptoms Neurologic/Psychiatric: Reports: no symptoms Subjective 66 YO M admitted with right foot cellulitis. Now osteomyelitis. Cover for Int Med-Dr Fay. Await discharge to SNF Objective Last Vital Signs Date Time Temp Pulse Resp B/P (MAP) Pulse Ox O2 Delivery O2 Flow Rate FiO2 07/19/17 08:00 97.7 75 18 117/68 97 97.7 07/18/17 16:00 Room Air Intake and Output 07/18/17 07/19/17 19:00 07:00 Intake Total 840 ml 375 ml Output Total 1400 ml 600 ml Balance -560 ml -225 ml Intake Oral 840 ml 375 ml Output Urine Total 1400 ml 600 ml # Bowel Movements 1 Objective Objective General: No acute distress, awake and alert HEENT: NCAT, sclera anicteric, PERRL, EOMI. Neck: Supple, no significant jugular venous distention, Lungs: Good inspiratory effort, clear to auscultation bilaterally, no Wheeze or Rales. Heart: Regular rate and rhythm, normal S1/S2, no murmur Abdomen: soft, nontender, nondistended. Normoactive bowel sounds. Extremities: No Cyanosis , clubbing or edema. Left LE BKA, Right foot dressing intact. Neuro: A&O x 3, Motor intact. Skin: warm, no rashes or lesions Psych: Normal mood and affect Assessment/Plan Problem List: (1) S/P BKA (below knee amputation) unilateral (2) Diabetes mellitus, type II Assessment & Plan: Continue levemir, humalog, starlix, glucophage and januvia (3) Hypercholesteremia (4) Cellulitis of right lower extremity Assessment & Plan: 1st distal phalanx-see ID note. monitor off antibiotic (5) Ulcer of heel and midfoot (6) Osteomyelitis of ankle or foot, acute Assessment & Plan: Off antibiotic per ID (7) HTN (hypertension) (8) Gastritis Assessment & Plan: Protonix (9) Hemorrhage of gastrointestinal tract Assessment & Plan: S/P EGD on 07/08/17-see GI note. Assessment/Plan Discharge to [facility] nursing facility today DANIEL WRIGHT July 19, 2017 11:33
[2017-07-19] MEDS ORDERED: NOVOLOG100 UNITS1 SUBQ (11:35)
[2017-07-19] MEDS ORDERED: GLUCOPHAGE500 MG ORAL (11:35)
[2017-07-19] MEDS ORDERED: JANUVIA50 MG ORAL (11:35)
[2017-07-19] MEDS ORDERED: CLOTRIMAZOLE15 GM TOPIC (11:35)
[2017-07-19] MEDS ORDERED: DAKIN'S1 APPLI1 TOPIC (11:35)
[2017-07-19] MEDS ORDERED: PROTONIX40 MG ORAL (11:35)
[2017-07-19 12:00] VITALS: BP 137/79
--- NOTE | 2017-07-19 12:30 | Infectious Diseases Prog Note ---
Assessment/Plan Assessment/Plan The patient is a 66-year-old male with Coffee ground Emesis-?GIB, resolved -s/p EGD 07/08: Diffuse gastritis, status post biopsy, otherwise normal upper endoscopic examination. Low grade fever- possibly reactive to above- ; resolved, no PNA -CXR 07/07: No radiographic evidence of acute cardiopulmonary disease. Mild leukocytosis- posibly reactive- resolved Right foot cellulitis (resolved). right big toe. osteo , s/p Rx -MRI R foot: Findings suspicious for osteomyelitis of the distal aspect of the first distal phalanx -wound cx E.fecalis ([place] S), CoNS (likely represents colonizers) Fever, SP Normal white blood cells Influenza screening tests : Neg RP : 2.4 => 07/02 : 0.4 06/28 ESR : 74 => 07/02 : 31 Diabetes. Hyperlipidemia. Hypertension. Left BKA. History of alcohol abuse and smoking until recently. 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 PLAN: monitor pt off of IV AB Rx unless persistently febrile, new infiltrates in CXR and/or worsening leukocytosis Clotrimazole topical If T>101, obtain 2 sets of Bcx - 07/01 SP IV vancomycin and Ceftriaxone and Flagyl ( abx d# 42/42 ) -05/24 SP Cefepime #4 Monitor CBC. Monitor BMP. Subjective Allergies: Coded Allergies: No Known Allergies (Unverified , 11/16/14) Subjective afebrile no leukocytosis off abx Objective Vital Signs Last 24 Hour Vital Signs Date Time Temp Pulse Resp B/P (MAP) Pulse Ox O2 Delivery O2 Flow Rate FiO2 07/19/17 12:00 97.7 79 20 137/79 96 97.7 07/19/17 08:00 97.7 75 18 117/68 97 97.7 07/19/17 00:00 98.4 95 18 109/56 96 98.4 07/18/17 19:55 98.6 97 18 113/69 97 98.6 07/18/17 16:00 96.6 95 18 115/74 97 Room Air 96.6 Height (Feet): 5 Height (Inches): 5.00 Weight (Pounds): 180 Objective General Appearance: WD/WN HEENT: normocephalic, atraumatic Respiratory/Chest: chest wall non-tender, lungs clear Breasts: no masses Cardiovascular: normal peripheral pulses, regular rhythm Abdomen: normal bowel sounds, soft, non tender Genitourinary: normal external genitalia Extremities: no cyanosis, aka Skin: extensive keratic lesions on leg Current Medications Medications (Trade) Dose Ordered Sig/Caden Route PRN Reason Start Time Stop Time Status Last Admin Dose Admin Clotrimazole (Lotrimin) 1 applic BID TOPIC 07/14/17 23:11 08/13/17 23:10 07/19/17 09:03 Dextrose (Dextrose 50%) 25 ml STAT PRN IV Hypoglycemia 07/12/17 07:15 08/11/17 07:14 Dextrose (Dextrose 50%) 50 ml STAT PRN IV Hypoglycemia 07/12/17 07:15 08/11/17 07:14 Heparin Sodium (Porcine) (Heparin 5000 units/ml) 5,000 units EVERY 12 HOURS SUBQ 07/12/17 21:00 07/20/17 10:25 07/19/17 09:04 Insulin Aspart (NovoLOG) BEFORE MEALS AND HS SUBQ 06/20/17 12:45 07/20/17 12:44 07/19/17 06:52 Metformin HCl (Glucophage) 500 mg TIAC ORAL 07/12/17 11:30 08/11/17 11:29 07/18/17 06:38 Ondansetron HCl (Zofran) 4 mg Q4H PRN IVP Nausea & Vomiting 07/07/17 08:00 08/06/17 07:59 07/07/17 09:15 Pantoprazole (Protonix) 40 mg ACBREAKFAST ORAL 07/14/17 06:30 08/13/17 06:29 07/18/17 06:38 Sitagliptin Phosphate (Januvia) 50 mg ACBREAKFAST ORAL 07/11/17 08:00 08/10/17 07:59 07/18/17 06:38 Sodium Hypochlorite (Dakin's Quarter Strength) 1 applic DAILY TOPIC 06/28/17 09:00 07/28/17 08:59 07/18/17 09:06 Dena Frank M.D. July 19, 2017 12:30
--- NOTE | 2017-07-19 20:45 | Pulmonology Progress Note ---
Assessment/Plan Problems: (1) Osteomyelitis of ankle or foot, acute (2) Cellulitis of right lower extremity (3) Ulcer of heel and midfoot (4) ETOH abuse (5) HTN (hypertension) (6) Diabetes (7) Anemia (8) S/P BKA (below knee amputation) Assessment/Plan doing great all reviewed no new events skin getting much better pt/ot reordered eating better, dc planning in process \ Subjective ROS Limited/Unobtainable: No Constitutional: Reports: no symptoms HEENT: Repors: no symptoms Respiratory: Reports: no symptoms Allergies: Coded Allergies: No Known Allergies (Unverified , 11/16/14) Objective Last 24 Hour Vital Signs Date Time Temp Pulse Resp B/P (MAP) Pulse Ox O2 Delivery O2 Flow Rate FiO2 07/19/17 12:00 Room Air 07/19/17 12:00 97.7 79 20 137/79 96 97.7 07/19/17 08:00 97.7 75 18 117/68 97 97.7 07/19/17 00:00 98.4 95 18 109/56 96 98.4 Intake and Output 07/18/17 07/19/17 19:00 07:00 Intake Total 840 ml 375 ml Output Total 1400 ml 600 ml Balance -560 ml -225 ml Intake Oral 840 ml 375 ml Output Urine Total 1400 ml 600 ml # Bowel Movements 1 Objective General Appearance: WD/WN HEENT: normocephalic, atraumatic Respiratory/Chest: chest wall non-tender, lungs clear Breasts: no masses Cardiovascular: normal peripheral pulses, regular rhythm Abdomen: normal bowel sounds, soft, non tender Genitourinary: normal external genitalia Extremities: no cyanosis, aka Skin: extensive keratic lesions on leg Kyra Massey MD July 19, 2017 20:45
--- NOTE | 2017-07-21 12:29 | Discharge Summary ---
Discharge Summary Discharge Summary Discharge Summary DATE OF ADMISSION: 05/15/2017 DATE OF DISCHARGE: 07/19/2017 REASON FOR ADMISSION: 66 years old male with history of diabetes, hypertension, hyperlipidemia, left below knee amputation, history of alcohol abuse and smoking, presented to emergency department with complaint of right foot infection. Upon evaluation vital signs were stable ,patient was afebrile. Laboratory workup revealed no leukocytosis. Elevated blood glucose noted. Insulin was given. X-ray of the right foot revealed no evidence of subcutaneous gas or fracture. Physical exam showed erythema, edema, but no evidence of crepitus and low suspicion for necrotizing fasciitis. Patient was admitted with diagnosis of cellulitis of right lower extremity, hypertension, diabetes, left BKA, ETOH abuse. CONSULTANTS: Pulmonary/refuge manager Dr. Massey ID specialist Dr. Kelsey GI specialist Dr. Zapata Presser Machine Dr. Hawkins Mold Injector Dr Blanco [facility] COURSE: Patient admitted to medical surgical floor. Patient started on empiric antibiotics. ID specialist closely followed. MRI revealed findings suspicious for osteomyelitis of the distal aspect of the first distal phalanx. Wound culture was positive for Staphylococcus coagulase negative and Enterococci Faecalis. Blood culture were negative ,influenza screen test was negative . Infectious disease specialist closely followed. Patient status post treatment for acute osteomyelitis. No leukocytosis, fever resolved. CRP from 2.4 down to 0.4 and ESR from 74 down to 31. Mold Injector seen and evaluated the patient. Wound care was provided as per grinder watch parts recommendation. Blood sugar was managed as per prop attendant who closely followed patient. Hemoglobin A1c 9.9 not at goal . Patient was initially on long and short acting insulin with up titration and sliding scale of insulin as needed. Patient was later weaned from insulin to oral anti-glycemic after blood sugar stabilized. Encouraged compliance with eradications. Blood pressure was managed with DIMITRI inhibitor dose was optimized and uptitrated. Later Lisinopril was discontinued, since blood pressure remains normotensive, and no need for antihypertensive at this time. Renal parameters and electrolytes were closely monitored. Electrolytes were corrected as needed. Nephrotoxics were avoided. DVT prophylaxis provided. Venous duplex revealed chronic thrombosis left lower extremity superficial femoral vein. Pain management was addressed and controlled. Bowel regimen instituted . Patient was working with physical and occupational therapists. Patient had coffee-ground emesis. GI consult was requested. Patient undergone subsequently EGD on 07/08 which revealed diffuse gastritis, status post biopsy otherwise normal upper endoscopic examination. Pathology revealed moderate chronic gastritis, focal intestinal metaplasia, and was negative for evidence of Helicobacter infection. GI recommended diet as tolerated. Bowel regimen continued. Patient started on PPI. Hemoglobin and hematocrit remained at baseline. No need for transfusion, goal to keep hemoglobin above . Stool for occult blood was positive x 1. Patient was recommended to have outpatient colonoscopy. No further coffee ground emesis. Patient was counseled on abstinence from alcohol and avoidance of NSAIDs. compressed gas plant worker was working on obtaining insurance for the patient. Patient finally received Medical insurance. Subsequently personal financial planner was working on finding of the intermediate facility, since patient was homeless. Transfer was arranged to [facility]. However on the day of discharge, patient declined transfer to intermediate facility and decided to go to his friend's house. Patient was reinforced compliance with medication regimen, abstinence from ETOH and outpatient follow-up with the medical care provided FINAL DIAGNOSES: Right foot cellulitis Acute side big toe osteomyelitis, status post treatment Diabetic foot ulcer right hallux Diabetes mellitus out of control Diabetic neuropathy Hypertension Hyperlipidemia Left below knee amputation GERD Chronic gastritis (likely secondary to ETOH abuse) ETOH abuse History of smoking DISCHARGE MEDICATIONS: See Medication Reconciliation list. DISCHARGE INSTRUCTIONS: I have been assigned to dictate discharge summary for this account. I was not involved in the patient's management. Waleska Bhakta NP ([place]) July 21, 2017 12:29
== END 2017-07-19 13:29 | disposition home or self-care (01) | DRG 383 ==
LOC: EDBD 17:05 → EDBEDREQ 19:01 → EMR 20:11 → 4W 20:14 → EDBEDREQ 20:24
PROC: 0DB78ZX Excision of Stomach, Pylorus, Via Natural or Artificial Opening Endoscopic, Diagnostic (ICD-10-PCS; principal; 2017-07-08 12:03)
DX: L03.115 Cellulitis of right lower limb (principal); K92.0 Hematemesis; M86.171 Other acute osteomyelitis, right ankle and foot; E11.40 Type 2 diabetes mellitus with diabetic neuropathy, unspecified; E11.621 Type 2 diabetes mellitus with foot ulcer; I10 Essential (primary) hypertension; E78.5 Hyperlipidemia, unspecified; F17.200 Nicotine dependence, unspecified, uncomplicated; E11.65 Type 2 diabetes mellitus with hyperglycemia; E11.69 Type 2 diabetes mellitus with other specified complication; B95.8 Unspecified staphylococcus as the cause of diseases classified elsewhere; B95.2 Enterococcus as the cause of diseases classified elsewhere; Z86.73 Personal history of transient ischemic attack (TIA), and cerebral infarction without residual deficits; K29.20 Alcoholic gastritis without bleeding; Z89.512 Acquired absence of left leg below knee; I82.511 Chronic embolism and thrombosis of right femoral vein; R62.7 Adult failure to thrive; K21.9 Gastro-esophageal reflux disease without esophagitis; Z59.0 Homelessness; D64.9 Anemia, unspecified; L97.418 Non-pressure chronic ulcer of right heel and midfoot with other specified severity
CPT/HCPCS: 36415; 71045; 80048; 80053; 80202; 81003; 82270; 82378; 82550; 82962; 83036; 83540; 83550; 83690; 83735; 83880; 84100; 85025; 85610; 85651; 85730; 86140; 86710; 87040; 87070; 87081; 87181; 87205; 93970; 94003; 94150; 94664; 94760; 99285; J1815; J2405; J8499; S5561

== ENCOUNTER 2017-07-21 19:02 | Inpatient (IN) | payer MEDICAID ==
[~2017-07-21] VITALS: Ht 165.1 cm; Wt 64.5 kg
[~2017-07-21 19:02] MED LIST changes: +CLOTRIMAZOLE15 GM TOPIC; +DAKIN'S1 APPLI1 TOPIC; +GLUCOPHAGE500 MG ORAL; +JANUVIA50 MG ORAL; +NOVOLOG100 UNITS1 SUBQ; +PROTONIX40 MG ORAL
[2017-07-21 20:57] LABS: HEMATOCRIT 32.9 % (42.0-52.0); HEMOGLOBIN 11.4 G/DL (14.2-18.0); MEAN CORPUSCULAR VOLUME 81 FL (80-99); PLATELET COUNT 229 K/UL (150-450); RED BLOOD COUNT 4.08 M/UL (4.70-6.10); RED CELL DISTRIBUTION WIDTH 11.6 % (11.6-14.8)
[2017-07-21 21:00] LABS: WHITE BLOOD COUNT 26.8 K/UL (4.8-10.8)
[2017-07-21 21:08] VITALS: BP 100/64
[2017-07-21 21:11] LABS: ANION GAP 19 mmol/L (5-15); BLOOD UREA NITROGEN 25 mg/dL (7-18); CALCIUM 8.9 MG/DL (8.5-10.1); CARBON DIOXIDE 15 MMOL/L (21-32); CHLORIDE 91 MMOL/L (98-107); CREATININE 1.4 MG/DL (0.55-1.30); POTASSIUM 4.4 MMOL/L (3.5-5.1); SODIUM 125 MMOL/L (136-145)
[2017-07-21] MEDS ORDERED: Ampicillin/Sulbactam Sod 3 GM in NS 110 ML IVPB ONE (21:15)
[2017-07-21] MEDS ORDERED: Vancomycin 1 GM in NS 275 ML IVPB ONE (21:15)
[2017-07-21 21:23] LABS: ALANINE AMINOTRANSFERASE 17 U/L (12-78); ALBUMIN/GLOBULIN RATIO 0.7 (1.0-2.7); ALKALINE PHOSPHATASE 83 U/L (46-116); ASPARTATE AMINO TRANSFERASE 16 U/L (15-37); BILIRUBIN,TOTAL 0.5 MG/DL (0.2-1.0); CKMB 6.5 NG/ML (0.0-3.6); CREATINE KINASE 319 U/L (26-308)
[2017-07-21] MEDS ORDERED: NS 1000ml 1,600 ML IVLG ONE (21:45)
[2017-07-21 22:40] VITALS: BP 115/71
[2017-07-21 22:42] LABS: APPEARANCE,URINE VERY CLOUDY; BILIRUBIN, URINE 1+ (NEGATIVE); GLUCOSE, URINE (UA) 2+ (NEGATIVE); KETONES,URINE NEGATIVE (NEGATIVE); LEUKOCYTE ESTERASE ,URINE 2+ (NEGATIVE); NITRITE,URINE POSITIVE (NEGATIVE); PH,URINE 5 (4.5-8.0); PROTEIN,URINE 1+ (NEGATIVE); UROBILINOGEN,URINE 1 MG/DL (0.0-1.0)
[2017-07-21 22:45] LABS: COLOR,URINE RED
[2017-07-21] MEDS ORDERED: Miralax 17gm pkt ORAL PRN (22:45)
[2017-07-21] MEDS ORDERED: Mylanta II UD 30ml ORAL PRN (22:45)
[2017-07-21] MEDS ORDERED: LORazepam Inj 2mg/ml 1ml IV PRN (22:45)
[2017-07-21] MEDS ORDERED: Zolpidem 5mg tab ORAL PRN (22:45)
--- NOTE | 2017-07-21 23:02 | Emergency Room Report ---
History of Present Illness General Chief Complaint: General Complaint Present Illness HPI 66-year-old male presents to the emergency department brought by ambulance for failure to thrive he was found out in the streets. Patient is not ambulatory as he has left BKA. Patient denies pain at this time he reports some chills denies fevers. He denies nausea or vomiting. reports frequent bowel movements. Patient states he feels well for the most part. History of present illness and ROS are limited due to patient reporting no medical complaints at this time. Allergies: Coded Allergies: No Known Allergies (Unverified , 11/16/14) Patient History Past Medical History: see triage record, DM Past Surgical History: unable to obtain, other - left BKA Pertinent Family History: unable to obtain Reviewed Nursing Documentation: PMH: Agreed; PSxH: Agreed Nursing Documentation-PMH Hx Cardiac Problems: No Hx Hypertension: Yes Hx Diabetes: Yes Hx Cancer: No Hx Gastrointestinal Problems: No Hx Neurological Problems: No Hx Cerebrovascular Accident: No - ETOH ABUSE Hx Fatigue: Yes Review of Systems All Other Systems: negative except mentioned in HPI Physical Exam Vital Signs Date Time Temp Pulse Resp B/P (MAP) Pulse Ox O2 Delivery O2 Flow Rate FiO2 07/21/17 18:58 98.5 80 20 98 Room Air 98.4 07/21/17 21:08 100/64 Sp02 EP Interpretation: reviewed, normal General Appearance: alert, mild distress, other - Disheveled and grossly contaminated, Chronically Ill Eyes: bilateral eye normal inspection, bilateral eye PERRL ENT: normal ENT inspection, normal voice, moist mucus membranes, nasal congestion Neck: no bony tend Respiratory: chest non-tender, lungs clear, normal breath sounds Cardiovascular #1: no edema - mild 1+ pitting edema, no JVD, tachycardia, other - Slow capillary refill- RLE Cardiovascular #2: 0 dorsalis pedis (R) - difficult to palpate right pedal pulses. Gastrointestinal: normal bowel sounds - hyperactive bs in all 4 quadrants., non tender, soft, non-distended, no guarding Rectal: heme negative stool - FOB - by Dr. Moore Genitourinary: deferred Musculoskeletal: non-tender, other - Pt. not ambulatory, left BKA Neurologic: alert, oriented x3, responsive, sensory intact - RLE, speech normal Psychiatric: judgement/insight normal Skin: warm/dry, pallor - mild pallor to the rigth LE, slow capilarry refill, , other - no obvious ulcers, purple discoloration to the medial paronychia area of the right great toe. onchyomycosis noted to the entire nail. Lymphatic: no adenopathy Medical Decision Making PA Attestation Dr. Lake is my supervising physician whom pt. management has been discussed with. Diagnostic Impression: Primary Impression: Sepsis Qualified Codes: A41.9 - Sepsis, unspecified organism Additional Impressions: Hyponatremia UTI (urinary tract infection) Qualified Codes: N30.01 - Acute cystitis with hematuria Lactic acid acidosis ER Course 66-year-old male presents to the emergency department brought by ambulance for failure to thrive he was found out in the streets. Patient is not ambulatory as he has left BKA. Patient denies pain at this time he reports some chills denies fevers. He denies nausea or vomiting. reports frequent bowel movements. Patient states he feels well for the most part. History of present illness and ROS are limited due to patient reporting no medical complaints at this time.. Review of this patient's documentation it is evident that patient was discharged yesterday from upstairs he was here for approximately one month receiving IV antibiotics for osteomyelitis of the right foot. On his discharge note it was noted that he was to go to detention facility and this was facilitated by social secretary and medical provider. Apparently patient declined and stated that he wanted to go to his friend's house. Ddx considered but are not limited to cellulitis, arterial occlusion, sepsis , infectious diarrhea. Vital signs: Tachycardic, normotensive, no tachypnea, pt. is afebrile H&PE are most consistent with failure to thrive and nonadherence to radical recommendations. Patient is tachycardic and given his recent admission for infection Will workup. Patient is grossly contaminated and disheveled. He is alert and answering questions appropriately. No obvious open wound of the right lower extremity however concern for decreased circulation as unable to palpate pulses and extremity is [place] in palpation compared to his flores and calf. He has slow capillary refill. He denies pain of this extremity. --Patient is also noted to have significant diarrhea. - FOB negative. ORDERS: -CBC: WBC's of 26.8 -CMP: hyponatremia of 123, elevated glucose 293, acidosis noted by lower CO2, and high anion gap. -Lactic Acid of 4.6 -EKG: Sinus tach at a rate of [address] changes. -Chest x-ray one view: No effusion, infiltrates or acute cardio-pulmonary pathology. - CK: Elevated 319 -Troponin: WNL 0.00 -ESR: Pending -CRP: 16 -UA: nitrite positive, elevated inflammatory markers and presence of bacteria consistent with UTI. Lower extremity unilateral serial duplex ultrasound: PENDING ED INTERVENTIONS: -1 liter NS bolus followed by continuous maintenance. - 1 gram Vancomycin IV ( review of this patient's most recent wound culture was showing Staphylococcus which is coagulase-negative in addition to enterococcus both of which were sensitive to vancomycin.) - 3 g Unasyn IV -500 mg Flagyl IV This pt. is signed out to on-coming attending physician Dr. Moore. DISPOSITION: at this time pt. will be admitted to Dr. Fay for Sepsis, UTI and lactic acidosis. Dr. Fay agreed to admit the pt. and to continue pt. care management. Labs Test 07/21/17 20:30 07/21/17 22:20 White Blood Count 26.8 K/UL (4.8-10.8) Red Blood Count 4.08 M/UL (4.70-6.10) Hemoglobin 11.4 G/DL (14.2-18.0) Hematocrit 32.9 % (42.0-52.0) Mean Corpuscular Volume 81 FL (80-99) Mean Corpuscular Hemoglobin 27.8 PG (27.0-31.0) Mean Corpuscular Hemoglobin Concent 34.6 G/DL (32.0-36.0) Red Cell Distribution Width 11.6 % (11.6-14.8) Platelet Count 229 K/UL (150-450) Mean Platelet Volume 9.4 FL (6.5-10.1) Neutrophils (%) (Auto) % (45.0-75.0) Lymphocytes (%) (Auto) % (20.0-45.0) Monocytes (%) (Auto) % (1.0-10.0) Eosinophils (%) (Auto) % (0.0-3.0) Basophils (%) (Auto) % (0.0-2.0) Differential Total Cells Counted 100 Neutrophils % (Manual) 88 % (45-75) Lymphocytes % (Manual) 7 % (20-45) Monocytes % (Manual) 4 % (1-10) Eosinophils % (Manual) 0 % (0-3) Basophils % (Manual) 0 % (0-2) Band Neutrophils 1 % (0-8) Platelet Estimate Adequate Platelet Morphology Normal Red Blood Cell Morphology Normal Sodium Level 125 MMOL/L (136-145) Potassium Level 4.4 MMOL/L (3.5-5.1) Chloride Level 91 MMOL/L (98-107) Carbon Dioxide Level 15 MMOL/L (21-32) Anion Gap 19 mmol/L (5-15) Blood Urea Nitrogen 25 mg/dL (7-18) Creatinine 1.4 MG/DL (0.55-1.30) Estimat Glomerular Filtration Rate 50.5 mL/min (>60) Glucose Level 293 MG/DL (74-106) Lactic Acid Level 4.70 mmol/L (0.66-2.22) Calcium Level 8.9 MG/DL (8.5-10.1) Total Bilirubin 0.5 MG/DL (0.2-1.0) Aspartate Amino Transf (AST/SGOT) 16 U/L (15-37) Alanine Aminotransferase (ALT/SGPT) 17 U/L (12-78) Alkaline Phosphatase 83 U/L (46-116) Total Creatine Kinase 319 U/L (26-308) Creatine Kinase MB 6.5 NG/ML (0.0-3.6) Creatine Kinase MB Relative Index 2.0 Troponin I 0.000 ng/mL (0.000-0.056) C-Reactive Protein, Quantitative 18.0 mg/dL (0.00-0.90) Total Protein 7.4 G/DL (6.4-8.2) Albumin 3.0 G/DL (3.4-5.0) Globulin 4.4 g/dL Albumin/Globulin Ratio 0.7 (1.0-2.7) Urine Color Red Urine Appearance Very cloudy Urine pH 5 (4.5-8.0) Urine Specific [place] 1.020 (1.005-1.035) Urine Protein 1+ (NEGATIVE) Urine Glucose (UA) 2+ (NEGATIVE) Urine Ketones Negative (NEGATIVE) Urine Occult Blood 5+ (NEGATIVE) Urine Nitrite Positive (NEGATIVE) Urine Bilirubin 1+ (NEGATIVE) Urine Urobilinogen 1 MG/DL (0.0-1.0) Urine Leukocyte Esterase 2+ (NEGATIVE) Urine RBC 10-15 /HPF (0 - 0) Urine WBC 2-4 /HPF (0 - 0) Urine Squamous Epithelial Cells Few /LPF (NONE/OCC) Urine Amorphous Sediment Many /LPF (NONE) Urine Bacteria Many /HPF (NONE) EKG Diagnostic Results EP Interpretation: Dr. Lake Rate: tachycardiac - 126 BPM Rhythm: NSR ST Segments: no acute changes ASA given to the pt in ED: No PA Scribe Text This Interpretation was scribed by LEO Forbes. Chest X-Ray Diagnostic Results Chest X-Ray Diagnostic Results : Chest X-Ray Ordered: Yes # of Views/Limited/Complete: 1 View Indication: Other PA Xray: Interpretation reviewed, by supervising MD, and agrees with findings. Interpretation: no consolidation, no effusion, no pneumothorax Impression: No acute disease Electronically Signed by: Brianna Forbes PA-C Last Vital Signs Date Time Temp Pulse Resp B/P (MAP) Pulse Ox O2 Delivery O2 Flow Rate FiO2 07/21/17 21:08 98.9 120 22 100/64 98 Room Air 98.9 Disposition: ADMITTED INPATIENT Condition: Serious Signed Out To: Dr. Moore Referrals: NOT CHOSEN IPA/,REFERRING (PCP) Brianna Forbes July 21, 2017 23:02
[2017-07-22 00:54] VITALS: BP 112/67
[2017-07-22] MEDS ORDERED: Sodium Chloride 500ML 500 ML IV ONE (03:15)
[2017-07-22] MEDS: sitaGLIPtin 50mg tab ORAL SCH (06:56)
[2017-07-22] MEDS: NovoLOG Insulin Flexpen SUBQ SCH ×4 (06:57→22:20)
[2017-07-22 08:00] VITALS: BP 106/62
[2017-07-22] MEDS: Heparin 5000 units/ml inj SUBQ SCH ×2 (09:00→22:20)
[2017-07-22 09:52] LABS: HEMATOCRIT 30.4 % (42.0-52.0); HEMOGLOBIN 10.3 G/DL (14.2-18.0); MEAN CORPUSCULAR VOLUME 82 FL (80-99); PLATELET COUNT 209 K/UL (150-450); RED BLOOD COUNT 3.71 M/UL (4.70-6.10); RED CELL DISTRIBUTION WIDTH 11.7 % (11.6-14.8)
[2017-07-22 09:56] LABS: WHITE BLOOD COUNT 22.2 K/UL (4.8-10.8)
[2017-07-22 10:13] LABS: ALANINE AMINOTRANSFERASE 16 U/L (12-78); ALBUMIN 2.4 G/DL (3.4-5.0); ALBUMIN/GLOBULIN RATIO 0.6 (1.0-2.7); ALKALINE PHOSPHATASE 74 U/L (46-116); ANION GAP 10 mmol/L (5-15); ASPARTATE AMINO TRANSFERASE 14 U/L (15-37); BILIRUBIN,TOTAL 0.5 MG/DL (0.2-1.0); BLOOD UREA NITROGEN 15 mg/dL (7-18); CARBON DIOXIDE 22 MMOL/L (21-32); CHLORIDE 104 MMOL/L (98-107); CHOLESTEROL 138 MG/DL (< 200); CREATININE 1.1 MG/DL (0.55-1.30); HDL CHOLESTEROL 40 MG/DL (40-60); POTASSIUM 3.9 MMOL/L (3.5-5.1); SODIUM 136 MMOL/L (136-145); TRIGLYCERIDES 83 MG/DL (30-150)
--- NOTE | 2017-07-22 11:27 | Diagnostic Imaging Report ---
Indication: Pain Comparison: None Findings: 3 views of the right foot were obtained. No acute fractures, malalignment, erosions or periostitis are identified. Bones are osteopenic. Ankle fixation hardware noted. Vascular calcifications are present. Soft tissues are unremarkable. Impression: No acute findings.
--- NOTE | 2017-07-22 11:32 | Diagnostic Imaging Report ---
Indication: Chest pain Comparison: 07/07/2017 A single view chest radiograph was obtained. Findings: Mild patchy atelectasis suspected at the lung bases. Lung volumes are low. Heart is normal in size. Bones are slightly osteopenic. IMPRESSION: Suggestion of mild basal atelectasis. Correlate clinically
[2017-07-22] MEDS: metroNIDAZOLE 250mg tab ORAL SCH ×2 (12:00→17:26)
[2017-07-22 12:01] VITALS: BP 125/65
--- NOTE | 2017-07-22 13:13 | Consultation ---
History of Present Illness General Date patient seen: July 22, 2017 Chief Complaint: General Complaint Present Illness HPI 66 y/o male with hx of DM, HTN, CVA, AKA left leg presented to ER BIB ambulance , because he was found on the street not able to move. A few days earlier he signed AMA from [facility] when he found out that he is being transferred to a nursing facility. He was at [facility] more than a month receiving abx for his chronic cellulitis of his legs. this time initial evaluation revealed that he might be septic again with increased WBC and tachycardia. Allergies: Coded Allergies: No Known Allergies (Unverified , 11/16/14) Medication History Scheduled Clotrimazole* (Lotrimin*), 1 APPLIC TOPIC BID Insulin Aspart (Novolog Flexpen), 0 UNITS SUBQ BEFORE MEALS AND HS Metformin Hcl* (Glucophage*), 500 MG ORAL TIAC Pantoprazole* (Protonix*), 40 MG ORAL ACBREAKFAST Sitagliptin (Januvia), 50 MG ORAL ACBREAKFAST Sodium Hypochlorite (Dakin's), 1 APPLIC TOPIC DAILY Discontinued Medications No Known Medications* (NKM - No Known Medications*), 0 ., (Reported) Discontinued Reason: Medication dose changed Patient History Healthcare decision maker Resuscitation status Full Code Advanced Directive on File No Past Medical/Surgical History Past Medical/Surgical History: (1) S/P BKA (below knee amputation) unilateral (2) Cellulitis of right lower extremity (3) Diabetes Review of Systems All Other Systems: negative except mentioned in HPI Physical Exam General Appearance: cachetic Lines, tubes and drains: peripheral HEENT: atraumatic, anicteric Neck: non-tender, normal alignment Respiratory/Chest: chest wall non-tender, lungs clear Cardiovascular/Chest: normal peripheral pulses, regular rhythm Abdomen: normal bowel sounds, non tender Skin Exam: rash Last 24 Hour Vital Signs Date Time Temp Pulse Resp B/P (MAP) Pulse Ox O2 Delivery O2 Flow Rate FiO2 07/22/17 12:01 97.9 102 22 125/65 97 Room Air 97.9 07/22/17 12:00 72 07/22/17 08:00 93 07/22/17 08:00 98.1 102 20 106/62 97 Room Air 98.1 07/22/17 05:25 98.8 111 14 112/67 99 Room Air 98.8 07/22/17 00:54 98.8 111 14 112/67 99 Room Air 98.8 07/21/17 22:40 98.9 125 18 115/71 98 Room Air 98.9 07/21/17 21:08 98.9 120 22 100/64 98 Room Air 98.9 07/21/17 18:58 98.5 80 20 98 Room Air 98.4 Intake and Output 07/21/17 07/22/17 19:00 07:00 Intake Total 100 ml Balance 100 ml Intake IV Total 100 ml # Voids 2 Laboratory Tests Test 07/21/17 20:30 07/21/17 22:20 07/21/17 23:00 07/22/17 09:30 White Blood Count 26.8 K/UL (4.8-10.8) *H 22.2 K/UL (4.8-10.8) *H Red Blood Count 4.08 M/UL (4.70-6.10) L 3.71 M/UL (4.70-6.10) L Hemoglobin 11.4 G/DL (14.2-18.0) L 10.3 G/DL (14.2-18.0) L Hematocrit 32.9 % (42.0-52.0) L 30.4 % (42.0-52.0) L Mean Corpuscular Volume 81 FL (80-99) 82 FL (80-99) Mean Corpuscular Hemoglobin 27.8 PG (27.0-31.0) 27.7 PG (27.0-31.0) Mean Corpuscular Hemoglobin Concent 34.6 G/DL (32.0-36.0) 33.8 G/DL (32.0-36.0) Red Cell Distribution Width 11.6 % (11.6-14.8) 11.7 % (11.6-14.8) Platelet Count 229 K/UL (150-450) 209 K/UL (150-450) Mean Platelet Volume 9.4 FL (6.5-10.1) 8.8 FL (6.5-10.1) Neutrophils (%) (Auto) % (45.0-75.0) % (45.0-75.0) Lymphocytes (%) (Auto) % (20.0-45.0) % (20.0-45.0) Monocytes (%) (Auto) % (1.0-10.0) % (1.0-10.0) Eosinophils (%) (Auto) % (0.0-3.0) % (0.0-3.0) Basophils (%) (Auto) % (0.0-2.0) % (0.0-2.0) Differential Total Cells Counted 100 100 Neutrophils % (Manual) 88 % (45-75) H 85 % (45-75) H Lymphocytes % (Manual) 7 % (20-45) L 8 % (20-45) L Monocytes % (Manual) 4 % (1-10) 7 % (1-10) Eosinophils % (Manual) 0 % (0-3) 0 % (0-3) Basophils % (Manual) 0 % (0-2) 0 % (0-2) Band Neutrophils 1 % (0-8) 0 % (0-8) Platelet Estimate Adequate Adequate Platelet Morphology Normal Normal Red Blood Cell Morphology Normal Erythrocyte Sedimentation Rate 70 MM/HR (0-20) H Sodium Level 125 MMOL/L (136-145) L 136 MMOL/L (136-145) # Potassium Level 4.4 MMOL/L (3.5-5.1) 3.9 MMOL/L (3.5-5.1) Chloride Level 91 MMOL/L (98-107) L 104 MMOL/L (98-107) Carbon Dioxide Level 15 MMOL/L (21-32) L 22 MMOL/L (21-32) Anion Gap 19 mmol/L (5-15) H 10 mmol/L (5-15) Blood Urea Nitrogen 25 mg/dL (7-18) H 15 mg/dL (7-18) Creatinine 1.4 MG/DL (0.55-1.30) H 1.1 MG/DL (0.55-1.30) Estimat Glomerular Filtration Rate 50.5 mL/min (>60) > 60 mL/min (>60) Glucose Level 293 MG/DL (74-106) H 171 MG/DL (74-106) #H Lactic Acid Level 4.70 mmol/L (0.66-2.22) H 1.80 mmol/L (0.66-2.22) Calcium Level 8.9 MG/DL (8.5-10.1) 8.0 MG/DL (8.5-10.1) L Total Bilirubin 0.5 MG/DL (0.2-1.0) 0.5 MG/DL (0.2-1.0) Aspartate Amino Transf (AST/SGOT) 16 U/L (15-37) 14 U/L (15-37) L Alanine Aminotransferase (ALT/SGPT) 17 U/L (12-78) 16 U/L (12-78) Alkaline Phosphatase 83 U/L (46-116) 74 U/L (46-116) Total Creatine Kinase 319 U/L (26-308) H Creatine Kinase MB 6.5 NG/ML (0.0-3.6) H Creatine Kinase MB Relative Index 2.0 Troponin I 0.000 ng/mL (0.000-0.056) C-Reactive Protein, Quantitative 18.0 mg/dL (0.00-0.90) H Total Protein 7.4 G/DL (6.4-8.2) 6.4 G/DL (6.4-8.2) Albumin 3.0 G/DL (3.4-5.0) L 2.4 G/DL (3.4-5.0) L Globulin 4.4 g/dL 4.0 g/dL Albumin/Globulin Ratio 0.7 (1.0-2.7) L 0.6 (1.0-2.7) L Urine Color Red Urine Appearance Very cloudy Urine pH 5 (4.5-8.0) Urine Specific [place] 1.020 (1.005-1.035) Urine Protein 1+ (NEGATIVE) H Urine Glucose (UA) 2+ (NEGATIVE) H Urine Ketones Negative (NEGATIVE) Urine Occult Blood 5+ (NEGATIVE) H Urine Nitrite Positive (NEGATIVE) H Urine Bilirubin 1+ (NEGATIVE) H Urine Ictotest Negative Urine Urobilinogen 1 MG/DL (0.0-1.0) H Urine Leukocyte Esterase 2+ (NEGATIVE) H Urine RBC 10-15 /HPF (0 - 0) H Urine WBC 2-4 /HPF (0 - 0) Urine Squamous Epithelial Cells Few /LPF (NONE/OCC) Urine Amorphous Sediment Many /LPF (NONE) H Urine Bacteria Many /HPF (NONE) H Hypochromasia 1+ Triglycerides Level 83 MG/DL (30-150) Cholesterol Level 138 MG/DL (< 200) LDL Cholesterol 87 mg/dL (<100) HDL Cholesterol 40 MG/DL (40-60) Cholesterol/HDL Ratio 3.5 (3.3-4.4) Microbiology Date/Time Source Procedure Growth Status 07/21/17 22:20 Stool Clostridium difficile Toxin Assay - Final Complete 07/21/17 22:20 Urine,Clean Catch Urine Culture - Preliminary NO GROWTH Resulted Height (Feet): 5 Height (Inches): 5.00 Weight (Pounds): 135 Medications Current Medications Medications (Trade) Dose Ordered Sig/Caden Route PRN Reason Start Time Stop Time Status Last Admin Dose Admin Acetaminophen (Tylenol) 650 mg Q4H PRN ORAL fever 07/21/17 22:45 08/20/17 22:44 Al Hydroxide/Mg Hydroxide (Mylanta II) 30 ml Q6H PRN ORAL dyspepsia 07/21/17 22:45 08/20/17 22:44 Dextrose (Dextrose 50%) STAT PRN IV Hypoglycemia 07/21/17 22:45 08/20/17 22:44 Dextrose (Dextrose 50%) STAT PRN IV Hypoglycemia 07/21/17 22:45 08/20/17 22:44 Heparin Sodium (Porcine) (Heparin 5000 units/ml) 5,000 units EVERY 12 HOURS SUBQ 07/22/17 09:00 08/21/17 08:59 Insulin Aspart (NovoLOG) BEFORE MEALS AND HS SUBQ 07/22/17 06:30 08/21/17 06:29 07/22/17 12:20 Lorazepam (Ativan 2mg/ml 1ml) 0.5 mg Q4H PRN IV For Anxiety 07/21/17 22:45 07/28/17 22:44 Metronidazole (Flagyl) 250 mg Q6HR ORAL 07/22/17 12:00 07/29/17 11:59 Ondansetron HCl (Zofran) 4 mg Q6H PRN IVP Nausea & Vomiting 07/21/17 22:45 08/20/17 22:44 Polyethylene Glycol (Miralax) 17 gm HSPRN PRN ORAL Constipation 07/21/17 22:45 08/20/17 22:44 Sitagliptin Phosphate (Januvia) 50 mg ACBREAKFAST ORAL 07/22/17 06:30 08/21/17 06:29 07/22/17 06:56 Zolpidem Tartrate (Ambien) 5 mg HSPRN PRN ORAL Insomnia 07/21/17 22:45 07/28/17 22:44 Assessment/Plan Problem List: (1) Tachycardia ICD Codes: R00.0 - Tachycardia, unspecified SNOMED: 5399551 (2) Cellulitis of right lower extremity ICD Codes: L03.115 - Cellulitis of right lower limb SNOMED: 376875918 (3) Sepsis ICD Codes: A41.9 - Sepsis, unspecified organism SNOMED: 74996716 Qualifiers: Qualified Codes: A41.9 - Sepsis, unspecified organism Assessment/Plan [place] culture iv abx iv fluids keep in teli as long as pt is tachycardic Kyra Massey MD July 22, 2017 13:13
[2017-07-22 16:00] VITALS: BP 132/69
--- NOTE | 2017-07-22 17:47 | Consultation ---
History of Present Illness General Date patient seen: July 22, 2017 Time patient seen: 17:33 Chief Complaint: General Complaint Present Illness HPI 66 y/o M with hx of DM2, HTN, CVA, HLD, FTT, L BKA with recent prolonged admission here for R 1st toe OM and coffee ground emesis 2ry to gastritis who left AMA on 07/19 presents back on 07/21 after being found on the street not able to move. Found to have elevated WBC and tachycardia. +chills Denies fevers, n/v. +diarrhea Patient admitted 05/15-07/19 (he left AMA when he found out he was going to be discharged to SNF). He finished abx for R 1st toe OM with Vanco, Ceftriaxone and Flagyl. Allergies: Coded Allergies: No Known Allergies (Unverified , 11/16/14) Medication History Scheduled Clotrimazole* (Lotrimin*), 1 APPLIC TOPIC BID Insulin Aspart (Novolog Flexpen), 0 UNITS SUBQ BEFORE MEALS AND HS Metformin Hcl* (Glucophage*), 500 MG ORAL TIAC Pantoprazole* (Protonix*), 40 MG ORAL ACBREAKFAST Sitagliptin (Januvia), 50 MG ORAL ACBREAKFAST Sodium Hypochlorite (Dakin's), 1 APPLIC TOPIC DAILY Discontinued Medications No Known Medications* (NKM - No Known Medications*), 0 ., (Reported) Discontinued Reason: Medication dose changed Patient History Healthcare decision maker Resuscitation status Full Code Advanced Directive on File No Patient History Narrative Pmhx: as above Shx: History of alcohol abuse and smoking until recently. Fhx: non contributory Review of Systems All Other Systems: negative except mentioned in HPI Physical Exam Physical Exam Narrative General Appearance: cachetic Lines, tubes and drains: peripheral HEENT: atraumatic, anicteric Neck: non-tender, normal alignment Respiratory/Chest: chest wall non-tender, lungs clear Cardiovascular/Chest: normal peripheral pulses, regular rhythm Abdomen: normal bowel sounds, non tender Skin Exam: rash Last 24 Hour Vital Signs Date Time Temp Pulse Resp B/P (MAP) Pulse Ox O2 Delivery O2 Flow Rate FiO2 07/22/17 16:00 95 07/22/17 16:00 98.2 98 18 132/69 97 Room Air 98.2 07/22/17 12:01 97.9 102 22 125/65 97 Room Air 97.9 07/22/17 12:00 72 07/22/17 08:00 93 07/22/17 08:00 98.1 102 20 106/62 97 Room Air 98.1 07/22/17 05:25 98.8 111 14 112/67 99 Room Air 98.8 07/22/17 00:54 98.8 111 14 112/67 99 Room Air 98.8 07/21/17 22:40 98.9 125 18 115/71 98 Room Air 98.9 07/21/17 21:08 98.9 120 22 100/64 98 Room Air 98.9 07/21/17 18:58 98.5 80 20 98 Room Air 98.4 Intake and Output 07/21/17 07/22/17 19:00 07:00 Intake Total 100 ml Balance 100 ml Intake IV Total 100 ml # Voids 2 Laboratory Tests Test 07/21/17 20:30 07/21/17 22:20 07/21/17 23:00 07/22/17 09:30 White Blood Count 26.8 K/UL (4.8-10.8) *H 22.2 K/UL (4.8-10.8) *H Red Blood Count 4.08 M/UL (4.70-6.10) L 3.71 M/UL (4.70-6.10) L Hemoglobin 11.4 G/DL (14.2-18.0) L 10.3 G/DL (14.2-18.0) L Hematocrit 32.9 % (42.0-52.0) L 30.4 % (42.0-52.0) L Mean Corpuscular Volume 81 FL (80-99) 82 FL (80-99) Mean Corpuscular Hemoglobin 27.8 PG (27.0-31.0) 27.7 PG (27.0-31.0) Mean Corpuscular Hemoglobin Concent 34.6 G/DL (32.0-36.0) 33.8 G/DL (32.0-36.0) Red Cell Distribution Width 11.6 % (11.6-14.8) 11.7 % (11.6-14.8) Platelet Count 229 K/UL (150-450) 209 K/UL (150-450) Mean Platelet Volume 9.4 FL (6.5-10.1) 8.8 FL (6.5-10.1) Neutrophils (%) (Auto) % (45.0-75.0) % (45.0-75.0) Lymphocytes (%) (Auto) % (20.0-45.0) % (20.0-45.0) Monocytes (%) (Auto) % (1.0-10.0) % (1.0-10.0) Eosinophils (%) (Auto) % (0.0-3.0) % (0.0-3.0) Basophils (%) (Auto) % (0.0-2.0) % (0.0-2.0) Differential Total Cells Counted 100 100 Neutrophils % (Manual) 88 % (45-75) H 85 % (45-75) H Lymphocytes % (Manual) 7 % (20-45) L 8 % (20-45) L Monocytes % (Manual) 4 % (1-10) 7 % (1-10) Eosinophils % (Manual) 0 % (0-3) 0 % (0-3) Basophils % (Manual) 0 % (0-2) 0 % (0-2) Band Neutrophils 1 % (0-8) 0 % (0-8) Platelet Estimate Adequate Adequate Platelet Morphology Normal Normal Red Blood Cell Morphology Normal Erythrocyte Sedimentation Rate 70 MM/HR (0-20) H Sodium Level 125 MMOL/L (136-145) L 136 MMOL/L (136-145) # Potassium Level 4.4 MMOL/L (3.5-5.1) 3.9 MMOL/L (3.5-5.1) Chloride Level 91 MMOL/L (98-107) L 104 MMOL/L (98-107) Carbon Dioxide Level 15 MMOL/L (21-32) L 22 MMOL/L (21-32) Anion Gap 19 mmol/L (5-15) H 10 mmol/L (5-15) Blood Urea Nitrogen 25 mg/dL (7-18) H 15 mg/dL (7-18) Creatinine 1.4 MG/DL (0.55-1.30) H 1.1 MG/DL (0.55-1.30) Estimat Glomerular Filtration Rate 50.5 mL/min (>60) > 60 mL/min (>60) Glucose Level 293 MG/DL (74-106) H 171 MG/DL (74-106) #H Lactic Acid Level 4.70 mmol/L (0.66-2.22) H 1.80 mmol/L (0.66-2.22) Calcium Level 8.9 MG/DL (8.5-10.1) 8.0 MG/DL (8.5-10.1) L Total Bilirubin 0.5 MG/DL (0.2-1.0) 0.5 MG/DL (0.2-1.0) Aspartate Amino Transf (AST/SGOT) 16 U/L (15-37) 14 U/L (15-37) L Alanine Aminotransferase (ALT/SGPT) 17 U/L (12-78) 16 U/L (12-78) Alkaline Phosphatase 83 U/L (46-116) 74 U/L (46-116) Total Creatine Kinase 319 U/L (26-308) H Creatine Kinase MB 6.5 NG/ML (0.0-3.6) H Creatine Kinase MB Relative Index 2.0 Troponin I 0.000 ng/mL (0.000-0.056) C-Reactive Protein, Quantitative 18.0 mg/dL (0.00-0.90) H Total Protein 7.4 G/DL (6.4-8.2) 6.4 G/DL (6.4-8.2) Albumin 3.0 G/DL (3.4-5.0) L 2.4 G/DL (3.4-5.0) L Globulin 4.4 g/dL 4.0 g/dL Albumin/Globulin Ratio 0.7 (1.0-2.7) L 0.6 (1.0-2.7) L Urine Color Red Urine Appearance Very cloudy Urine pH 5 (4.5-8.0) Urine Specific [place] 1.020 (1.005-1.035) Urine Protein 1+ (NEGATIVE) H Urine Glucose (UA) 2+ (NEGATIVE) H Urine Ketones Negative (NEGATIVE) Urine Occult Blood 5+ (NEGATIVE) H Urine Nitrite Positive (NEGATIVE) H Urine Bilirubin 1+ (NEGATIVE) H Urine Ictotest Negative Urine Urobilinogen 1 MG/DL (0.0-1.0) H Urine Leukocyte Esterase 2+ (NEGATIVE) H Urine RBC 10-15 /HPF (0 - 0) H Urine WBC 2-4 /HPF (0 - 0) Urine Squamous Epithelial Cells Few /LPF (NONE/OCC) Urine Amorphous Sediment Many /LPF (NONE) H Urine Bacteria Many /HPF (NONE) H Hypochromasia 1+ Triglycerides Level 83 MG/DL (30-150) Cholesterol Level 138 MG/DL (< 200) LDL Cholesterol 87 mg/dL (<100) HDL Cholesterol 40 MG/DL (40-60) Cholesterol/HDL Ratio 3.5 (3.3-4.4) Microbiology Date/Time Source Procedure Growth Status 07/21/17 22:20 Stool Clostridium difficile Toxin Assay - Final Complete 07/21/17 22:20 Urine,Clean Catch Urine Culture - Preliminary NO GROWTH Resulted Height (Feet): 5 Height (Inches): 5.00 Weight (Pounds): 135 Medications Current Medications Medications (Trade) Dose Ordered Sig/Caden Route PRN Reason Start Time Stop Time Status Last Admin Dose Admin Acetaminophen (Tylenol) 650 mg Q4H PRN ORAL fever 07/21/17 22:45 08/20/17 22:44 Al Hydroxide/Mg Hydroxide (Mylanta II) 30 ml Q6H PRN ORAL dyspepsia 07/21/17 22:45 08/20/17 22:44 Dextrose (Dextrose 50%) STAT PRN IV Hypoglycemia 07/21/17 22:45 08/20/17 22:44 Dextrose (Dextrose 50%) STAT PRN IV Hypoglycemia 07/21/17 22:45 08/20/17 22:44 Heparin Sodium (Porcine) (Heparin 5000 units/ml) 5,000 units EVERY 12 HOURS SUBQ 07/22/17 09:00 08/21/17 08:59 Insulin Aspart (NovoLOG) BEFORE MEALS AND HS SUBQ 07/22/17 06:30 08/21/17 06:29 07/22/17 17:27 Lorazepam (Ativan 2mg/ml 1ml) 0.5 mg Q4H PRN IV For Anxiety 07/21/17 22:45 07/28/17 22:44 Metronidazole (Flagyl) 250 mg Q6HR ORAL 07/22/17 12:00 07/29/17 11:59 07/22/17 17:26 Ondansetron HCl (Zofran) 4 mg Q6H PRN IVP Nausea & Vomiting 07/21/17 22:45 08/20/17 22:44 Polyethylene Glycol (Miralax) 17 gm HSPRN PRN ORAL Constipation 07/21/17 22:45 08/20/17 22:44 Sitagliptin Phosphate (Januvia) 50 mg ACBREAKFAST ORAL 07/22/17 06:30 08/21/17 06:29 07/22/17 06:56 Zolpidem Tartrate (Ambien) 5 mg HSPRN PRN ORAL Insomnia 07/21/17 22:45 07/28/17 22:44 Assessment/Plan Assessment/Plan Abx: Flagyl 07/21- Vancomycin x1 07/21 Unasyn x1 07/21 Assessment: Sepsis 2ry to severe Cdiff -Cdiff + -CXR: Suggestion of mild basal atelectasis. Correlate clinically -u/a wbc 2/4, nit +, leuk +2; ucx NTD Leukocytosis, improving -afebrile MENG, improving Recent Right foot cellulitis and right big toe. osteo , s/p Rx -MRI R foot: Findings suspicious for osteomyelitis of the distal aspect of the first distal phalanx -wound cx E.fecalis ([place] S), CoNS (likely represents colonizers) -RP : 2.4 => 20 : 0.4 -06/28 ESR : 74 => 4/20 : 31 Recent Coffee ground Emesis 2ry to diffuse gastitis -s/p EGD 07/08: Diffuse gastritis, status post biopsy, otherwise normal upper endoscopic examination. Diabetes. Hyperlipidemia. Hypertension. Left BKA. History of alcohol abuse and smoking until recently. chronic thrombosis of superficial femoral vein. Plan: -Switch PO Flagyl #04/28 to PO Vancomycin 125mg qid for Cdiff. - 07/01 SP IV vancomycin and Ceftriaxone and Flagyl ( abx d# 42/42 ) -05/24 SP Cefepime #4 -f/u cx -Monitor CBC/BMP, temperatures -contact precautions -wound care/prevention per hospital protocol Thank you for this consultation. Will continue to follow along with you. Discussed with Dena Curtis M.D. July 22, 2017 17:47
[2017-07-22] MEDS: Vancomycin oral 125mg/2.5ml ORAL SCH ×2 (18:00→22:16)
--- NOTE | 2017-07-22 18:13 | Cardiology Report ---
APPROVED REPORT EKG Measurement Heart [id number] AL [id number] Sinus tachycardia Left anterior fascicular block Abnormal ECG
--- NOTE | 2017-07-22 18:38 | History & Physical ---
History and Physical History & Physicial Dictated for Int Med-Dr Fay no. [id number] Daniel Tafoya MD July 22, 2017 18:38
[2017-07-22 20:00] VITALS: BP 121/63
[2017-07-23] VITALS: BP 102/49
--- NOTE | 2017-07-23 01:15 | History and Physical Report ---
DATE OF ADMISSION: 07/21/2017 CHIEF COMPLAINT: The patient is a 66-year-old male, presents with chief complaint of failure to thrive. HISTORY OF PRESENT ILLNESS: The patient was admitted to [facility] from 05/15/2017 through 07/19/2017. The patient was admitted for right foot cellulitis and osteomyelitis of the right great toe. The patient was discharged to [facility], [place]. The patient, however, decided to go to a friend's house instead. According to emergency medical services, the patient was found on the street. The patient was nonambulatory because of his left mkdyd-[id number] amputation. The patient was unable to care for himself. The patient presented to [place] emergency room. The patient was admitted for failure to thrive and cellulitis of right foot. PAST MEDICAL HISTORY: Significant for: 1. Osteomyelitis of the right great toe as above. 2. Left wuach-sjb-hdit amputation. 3. Diabetes type 2. 4. Diabetic neuropathy. 5. Hypertension. 6. Hypercholesterolemia. 7. Gastroesophageal reflux disease. 8. History of alcoholic gastritis. PAST SURGICAL HISTORY: Significant for left ialzm-owx-wvqg amputation. CURRENT MEDICATIONS: 1. NovoLog sliding scale. 2. Metformin 500 mg one tablet p.o. 3 times a day. 3. Protonix 40 mg p.o. daily. 4. Januvia 50 mg p.o. daily. 5. Dakin's solution, apply daily. ALLERGIES: No known drug allergies. SOCIAL HISTORY: The patient is apparently homeless at this time. The patient denies tobacco or alcohol use. REVIEW OF SYSTEMS: CONSTITUTIONAL: The patient denies weight loss or weight gain. The patient denies fevers or chills. HEENT: The patient denies ear or throat pain. The patient denies headache. CARDIOVASCULAR: The patient denies palpitations or chest pain. CHEST: The patient denies wheeze or shortness of breath. ABDOMEN: The patient denies nausea, vomiting, diarrhea, or constipation. GENITOURINARY: The patient denies dysuria or increased frequency of urination. NEUROMUSCULAR: The patient denies seizures or generalized weakness. PHYSICAL EXAMINATION: GENERAL: The patient is well developed and well-nourished thin-appearing male, in no apparent distress. VITAL SIGNS: Temperature 98.8 degrees, respirations 14, pulse 111, and blood pressure 112/67. HEENT: Pupils are equal and responsive to light and accommodation. Extraocular movements are intact. NECK: Supple without lymphadenopathy. CHEST: Lungs are clear to auscultation bilaterally without wheezes or rales. CARDIOVASCULAR: Regular rhythm and rate. S1 and S2 are normal without murmurs, rubs, or gallops. ABDOMEN: Soft, nontender, and nondistended. Positive bowel sounds. No evidence of hepatosplenomegaly. Currently, no rebound or guarding. EXTREMITIES: Negative for clubbing, cyanosis, or edema. RECTAL/GENITAL: Refused. NEUROLOGIC: Cranial nerves II through XII grossly intact without focal deficits. LABORATORY AND DIAGNOSTIC DATA: WBC 26.8, hemoglobin 11.4, hematocrit 32.9 and platelets 229,000. Sodium 136, potassium 3.9, chloride 104, CO2 22, BUN 10, creatinine 1.1 and glucose 171. Clostridium difficile toxin was positive for Clostridium difficile A and B. ASSESSMENT: This is a 66-year-old male 1. Clostridium difficile colitis. 2. Failure to thrive. 3. Leukocytosis. 4. Right foot cellulitis. 5. Osteomyelitis of the right great toe. 6. History of gastrointestinal hemorrhage. 7. Diabetes type 2. 8. Diabetic peripheral neuropathy. 9. Hypertension. 10. Hypercholesterolemia. 11. History of left xfuck-jdr-xott amputation. 12. Gastroesophageal reflux disease. 13. History of alcoholic gastritis. TREATMENT: 1. Failure to thrive. 2. Leukocytosis/Clostridium difficile diarrhea/cellulitis of right foot. An Infectious Disease consultation has been obtained with Dr. Frank. The patient has been placed on oral vancomycin. We will follow recommendations of Infectious Disease. 3. Osteomyelitis of the right great toe. This was treated during the previous hospitalization. 4. History of gastrointestinal hemorrhage. The patient is status post endoscopy in the last hospitalization. 5. Diabetes type 2. Continue NovoLog sliding scale. 6. Diabetic peripheral neuropathy. 7. Hypertension, this is stable off antihypertensive medication at this time. 8. Hypercholesterolemia. 9. History of left wqdnu-lmo-phth amputation. 10. Gastroesophageal reflux disease/gastritis. Continue Protonix as above. Daniel Tafoya M.D. DR: SUSSY JOB#: [id number] CC:
[2017-07-23 04:00] VITALS: BP 101/58
[2017-07-23] MEDS: sitaGLIPtin 50mg tab ORAL SCH (06:30)
[2017-07-23] MEDS: NovoLOG Insulin Flexpen SUBQ SCH ×4 (06:30→21:22)
[2017-07-23 08:00] VITALS: BP 135/79
[2017-07-23 08:22] LABS: BASOPHILS % (AUTO) 0.7 % (0.0-2.0); EOSINOPHILS % (AUTO) 1.1 % (0.0-3.0); HEMATOCRIT 28.2 % (42.0-52.0); HEMOGLOBIN 9.8 G/DL (14.2-18.0); LYMPHOCYTES % (AUTO) 13.9 % (20.0-45.0); MEAN CORPUSCULAR VOLUME 82 FL (80-99); MONOCYTES % (AUTO) 5.1 % (1.0-10.0); NEUTROPHILS % (AUTO) 79.1 % (45.0-75.0); PLATELET COUNT 199 K/UL (150-450); RED BLOOD COUNT 3.43 M/UL (4.70-6.10); RED CELL DISTRIBUTION WIDTH 11.7 % (11.6-14.8); WHITE BLOOD COUNT 12.2 K/UL (4.8-10.8)
[2017-07-23 08:55] LABS: ANION GAP 12 mmol/L (5-15); BLOOD UREA NITROGEN 10 mg/dL (7-18); CALCIUM 8.1 MG/DL (8.5-10.1); CARBON DIOXIDE 22 MMOL/L (21-32); CHLORIDE 105 MMOL/L (98-107); CREATININE 0.9 MG/DL (0.55-1.30); POTASSIUM 3.4 MMOL/L (3.5-5.1); SODIUM 138 MMOL/L (136-145)
[2017-07-23] MEDS: Vancomycin oral 125mg/2.5ml ORAL SCH ×4 (09:00→21:21)
[2017-07-23] MEDS: Heparin 5000 units/ml inj SUBQ SCH (09:00)
--- NOTE | 2017-07-23 11:55 | Pulmonology Progress Note ---
Assessment/Plan Problems: (1) Cellulitis of right lower extremity (2) Tachycardia (3) Sepsis Assessment/Plan med/surg wbc lower iv abx check electrolytes Subjective ROS Limited/Unobtainable: No Constitutional: Reports: no symptoms HEENT: Repors: no symptoms Allergies: Coded Allergies: No Known Allergies (Unverified , 11/16/14) Objective Last 24 Hour Vital Signs Date Time Temp Pulse Resp B/P (MAP) Pulse Ox O2 Delivery O2 Flow Rate FiO2 07/23/17 10:32 98.1 07/23/17 09:33 98.1 07/23/17 08:00 92 07/23/17 08:00 98.1 90 15 135/79 100 Room Air 98.1 07/23/17 04:00 83 07/23/17 04:00 97.0 81 18 101/58 95 Room Air 97.0 07/23/17 00:00 93 07/23/17 00:00 97.5 81 20 102/49 97 Room Air 97.5 07/22/17 20:00 91 07/22/17 20:00 98.1 65 18 121/63 95 Room Air 98.1 07/22/17 16:00 95 07/22/17 16:00 98.2 98 18 132/69 97 Room Air 98.2 07/22/17 12:01 97.9 102 22 125/65 97 Room Air 97.9 07/22/17 12:00 72 Intake and Output 07/22/17 07/23/17 19:00 07:00 Intake Total 580 ml Output Total 300 ml Balance 580 ml -300 ml Intake Oral 580 ml Output Urine Total 300 ml # Bowel Movements 4 General Appearance: WD/WN HEENT: normocephalic, atraumatic Respiratory/Chest: chest wall non-tender, lungs clear, normal breath sounds, chest wall tender Cardiovascular: normal peripheral pulses, normal rate Abdomen: normal bowel sounds, soft, non tender Genitourinary: normal external genitalia Extremities: no cyanosis Skin: no rash Microbiology Date/Time Source Procedure Growth Status 07/21/17 20:40 Blood Blood Culture - Preliminary NO GROWTH AFTER 24 HOURS Resulted 07/21/17 20:30 Blood Blood Culture - Preliminary NO GROWTH AFTER 24 HOURS Resulted 07/21/17 22:20 Stool Stool Culture - Preliminary Resulted 07/21/17 22:20 Stool Clostridium difficile Toxin Assay - Final Complete 07/21/17 22:20 Urine,Clean Catch Urine Culture - Preliminary Mixed Gram Positive Organism Resulted Laboratory Tests 07/23/17 06:40: White Blood Count 12.2H, Red Blood Count 3.43L, Hemoglobin 9.8L, Hematocrit 28.2L, Mean Corpuscular Volume 82, Mean Corpuscular Hemoglobin 28.7, Mean Corpuscular Hemoglobin Concent 35.0, Red Cell Distribution Width 11.7, Platelet Count 199, Mean Platelet Volume 8.0, Neutrophils (%) (Auto) 79.1H, Lymphocytes ( %) (Auto) 13.9L, Monocytes (%) (Auto) 5.1, Eosinophils (%) (Auto) 1.1, Basophils (%) (Auto) 0.7, Sodium Level 138, Potassium Level 3.4L, Chloride Level 105, Carbon Dioxide Level 22, Anion Gap 12, Blood Urea Nitrogen 10, Creatinine 0.9, Estimat Glomerular Filtration Rate > 60, Glucose Level 147H, Calcium Level 8.1L Current Medications Medications (Trade) Dose Ordered Sig/Caden Route PRN Reason Start Time Stop Time Status Last Admin Dose Admin Acetaminophen (Tylenol) 650 mg Q4H PRN ORAL fever 07/21/17 22:45 08/20/17 22:44 07/23/17 09:33 Al Hydroxide/Mg Hydroxide (Mylanta II) 30 ml Q6H PRN ORAL dyspepsia 07/21/17 22:45 08/20/17 22:44 Dextrose (Dextrose 50%) STAT PRN IV Hypoglycemia 07/21/17 22:45 08/20/17 22:44 Dextrose (Dextrose 50%) STAT PRN IV Hypoglycemia 07/21/17 22:45 08/20/17 22:44 Heparin Sodium (Porcine) (Heparin 5000 units/ml) 5,000 units EVERY 12 HOURS SUBQ 07/22/17 09:00 08/21/17 08:59 07/23/17 09:00 Insulin Aspart (NovoLOG) BEFORE MEALS AND HS SUBQ 07/22/17 06:30 08/21/17 06:29 07/23/17 06:30 Lorazepam (Ativan 2mg/ml 1ml) 0.5 mg Q4H PRN IV For Anxiety 07/21/17 22:45 07/28/17 22:44 Ondansetron HCl (Zofran) 4 mg Q6H PRN IVP Nausea & Vomiting 07/21/17 22:45 08/20/17 22:44 Polyethylene Glycol (Miralax) 17 gm HSPRN PRN ORAL Constipation 07/21/17 22:45 08/20/17 22:44 Sitagliptin Phosphate (Januvia) 50 mg ACBREAKFAST ORAL 07/22/17 06:30 08/21/17 06:29 07/23/17 06:30 Vancomycin HCl (Vancomycin) 125 mg FOUR TIMES A DAY ORAL 07/22/17 18:00 07/29/17 17:59 07/23/17 09:00 Zolpidem Tartrate (Ambien) 5 mg HSPRN PRN ORAL Insomnia 07/21/17 22:45 07/28/17 22:44 Kyra Massey MD July 23, 2017 11:55
[2017-07-23 12:00] VITALS: BP 140/83
--- NOTE | 2017-07-23 17:07 | Infectious Diseases Prog Note ---
Assessment/Plan Assessment/Plan Assessment: Sepsis 2ry to severe Cdiff; improving -Cdiff + -CXR: Suggestion of mild basal atelectasis. Correlate clinically -u/a wbc 2/4, nit +, leuk +2; ucx NTD Bcx NTD Leukocytosis, improving -afebrile MENG, improving Recent Right foot cellulitis and right big toe. osteo , s/p Rx -MRI R foot: Findings suspicious for osteomyelitis of the distal aspect of the first distal phalanx -wound cx E.fecalis ([place] S), CoNS (likely represents colonizers) -RP : 2.4 => 07/02 : 0.4 -06/28 ESR : 74 => 07/02 : 31 Recent Coffee ground Emesis 2ry to diffuse gastitis -s/p EGD 07/08: Diffuse gastritis, status post biopsy, otherwise normal upper endoscopic examination. Diabetes. Hyperlipidemia. Hypertension. Left BKA. History of alcohol abuse and smoking until recently. chronic thrombosis of superficial femoral vein. Plan: -Continue to PO Vancomycin 125mg qid abx d#05/26 for Cdiff. -07/22 SP PO Flagyl #2 -07/21 SP IV Vanco and Unasyn x1 - 07/01 SP IV vancomycin and Ceftriaxone and Flagyl ( abx d# 42/42 ) -05/24 SP Cefepime #4 -f/u cx -Monitor CBC/BMP, temperatures -contact precautions -wound care/prevention per hospital protocol Thank you for this consultation. Will continue to follow along with you. Discussed with RN. Subjective Allergies: Coded Allergies: No Known Allergies (Unverified , 11/16/14) Subjective afebrile leukocytosis improving Bcx NTD Objective Vital Signs Last 24 Hour Vital Signs Date Time Temp Pulse Resp B/P (MAP) Pulse Ox O2 Delivery O2 Flow Rate FiO2 07/23/17 16:00 81 07/23/17 15:19 79 07/23/17 12:00 97.6 93 16 140/83 98 Room Air 97.6 07/23/17 10:32 98.1 07/23/17 09:33 98.1 07/23/17 08:00 92 07/23/17 08:00 98.1 90 15 135/79 100 Room Air 98.1 07/23/17 04:00 83 5/11/18 04:00 97.0 81 18 101/58 95 Room Air 97.0 07/23/17 00:00 93 07/23/17 00:00 97.5 81 20 102/49 97 Room Air 97.5 07/22/17 20:00 91 07/22/17 20:00 98.1 65 18 121/63 95 Room Air 98.1 Height (Feet): 5 Height (Inches): 5.00 Weight (Pounds): 135 Objective General Appearance: cachetic Lines, tubes and drains: peripheral HEENT: atraumatic, anicteric Neck: non-tender, normal alignment Respiratory/Chest: chest wall non-tender, lungs clear Cardiovascular/Chest: normal peripheral pulses, regular rhythm Abdomen: normal bowel sounds, non tender Skin Exam: rash Microbiology Date/Time Source Procedure Growth Status 07/21/17 20:40 Blood Blood Culture - Preliminary NO GROWTH AFTER 24 HOURS Resulted 07/21/17 20:30 Blood Blood Culture - Preliminary NO GROWTH AFTER 24 HOURS Resulted 07/21/17 22:20 Stool Stool Culture - Preliminary Resulted 07/21/17 22:20 Stool Clostridium difficile Toxin Assay - Final Complete 07/21/17 22:20 Urine,Clean Catch Urine Culture - Preliminary Mixed Gram Positive Organism Resulted Laboratory Tests Test 07/23/17 06:40 White Blood Count 12.2 K/UL (4.8-10.8) H Red Blood Count 3.43 M/UL (4.70-6.10) L Hemoglobin 9.8 G/DL (14.2-18.0) L Hematocrit 28.2 % (42.0-52.0) L Mean Corpuscular Volume 82 FL (80-99) Mean Corpuscular Hemoglobin 28.7 PG (27.0-31.0) Mean Corpuscular Hemoglobin Concent 35.0 G/DL (32.0-36.0) Red Cell Distribution Width 11.7 % (11.6-14.8) Platelet Count 199 K/UL (150-450) Mean Platelet Volume 8.0 FL (6.5-10.1) Neutrophils (%) (Auto) 79.1 % (45.0-75.0) H Lymphocytes (%) (Auto) 13.9 % (20.0-45.0) L Monocytes (%) (Auto) 5.1 % (1.0-10.0) Eosinophils (%) (Auto) 1.1 % (0.0-3.0) Basophils (%) (Auto) 0.7 % (0.0-2.0) Sodium Level 138 MMOL/L (136-145) Potassium Level 3.4 MMOL/L (3.5-5.1) L Chloride Level 105 MMOL/L (98-107) Carbon Dioxide Level 22 MMOL/L (21-32) Anion Gap 12 mmol/L (5-15) Blood Urea Nitrogen 10 mg/dL (7-18) Creatinine 0.9 MG/DL (0.55-1.30) Estimat Glomerular Filtration Rate > 60 mL/min (>60) Glucose Level 147 MG/DL (74-106) H Calcium Level 8.1 MG/DL (8.5-10.1) L Current Medications Medications (Trade) Dose Ordered Sig/Caden Route PRN Reason Start Time Stop Time Status Last Admin Dose Admin Acetaminophen (Tylenol) 650 mg Q4H PRN ORAL fever 07/21/17 22:45 08/20/17 22:44 07/23/17 09:33 Al Hydroxide/Mg Hydroxide (Mylanta II) 30 ml Q6H PRN ORAL dyspepsia 07/21/17 22:45 08/20/17 22:44 Dextrose (Dextrose 50%) STAT PRN IV Hypoglycemia 07/21/17 22:45 08/20/17 22:44 Dextrose (Dextrose 50%) STAT PRN IV Hypoglycemia 07/21/17 22:45 08/20/17 22:44 Heparin Sodium (Porcine) (Heparin 5000 units/ml) 5,000 units EVERY 12 HOURS SUBQ 07/22/17 09:00 08/21/17 08:59 07/23/17 09:00 Insulin Aspart (NovoLOG) BEFORE MEALS AND HS SUBQ 07/22/17 06:30 08/21/17 06:29 07/23/17 13:01 Lorazepam (Ativan 2mg/ml 1ml) 0.5 mg Q4H PRN IV For Anxiety 07/21/17 22:45 07/28/17 22:44 Ondansetron HCl (Zofran) 4 mg Q6H PRN IVP Nausea & Vomiting 07/21/17 22:45 08/20/17 22:44 Polyethylene Glycol (Miralax) 17 gm HSPRN PRN ORAL Constipation 07/21/17 22:45 08/20/17 22:44 Sitagliptin Phosphate (Januvia) 50 mg ACBREAKFAST ORAL 07/22/17 06:30 08/21/17 06:29 07/23/17 06:30 Vancomycin HCl (Vancomycin) 125 mg FOUR TIMES A DAY ORAL 07/22/17 18:00 07/29/17 17:59 07/23/17 13:20 Zolpidem Tartrate (Ambien) 5 mg HSPRN PRN ORAL Insomnia 07/21/17 22:45 07/28/17 22:44 Dena Frank M.D. July 23, 2017 17:07
--- NOTE | 2017-07-23 18:01 | Internal Med Progress Note ---
Subjective Date of Service: July 23, 2017 Physician Name Daniel Tafoya Attending Physician Tello Fay MD Current Medications Medications (Trade) Dose Ordered Sig/Caden Route PRN Reason Start Time Stop Time Status Last Admin Dose Admin Acetaminophen (Tylenol) 650 mg Q4H PRN ORAL fever 07/21/17 22:45 08/20/17 22:44 07/23/17 09:33 Al Hydroxide/Mg Hydroxide (Mylanta II) 30 ml Q6H PRN ORAL dyspepsia 07/21/17 22:45 08/20/17 22:44 Dextrose (Dextrose 50%) STAT PRN IV Hypoglycemia 07/21/17 22:45 08/20/17 22:44 Dextrose (Dextrose 50%) STAT PRN IV Hypoglycemia 07/21/17 22:45 08/20/17 22:44 Heparin Sodium (Porcine) (Heparin 5000 units/ml) 5,000 units EVERY 12 HOURS SUBQ 07/22/17 09:00 08/21/17 08:59 07/23/17 09:00 Insulin Aspart (NovoLOG) BEFORE MEALS AND HS SUBQ 07/22/17 06:30 08/21/17 06:29 07/23/17 17:40 Lorazepam (Ativan 2mg/ml 1ml) 0.5 mg Q4H PRN IV For Anxiety 07/21/17 22:45 07/28/17 22:44 Ondansetron HCl (Zofran) 4 mg Q6H PRN IVP Nausea & Vomiting 07/21/17 22:45 08/20/17 22:44 Polyethylene Glycol (Miralax) 17 gm HSPRN PRN ORAL Constipation 07/21/17 22:45 08/20/17 22:44 Sitagliptin Phosphate (Januvia) 50 mg ACBREAKFAST ORAL 07/22/17 06:30 08/21/17 06:29 07/23/17 06:30 Vancomycin HCl (Vancomycin) 125 mg FOUR TIMES A DAY ORAL 07/22/17 18:00 07/29/17 17:59 07/23/17 17:41 Zolpidem Tartrate (Ambien) 5 mg HSPRN PRN ORAL Insomnia 07/21/17 22:45 07/28/17 22:44 Allergies: Coded Allergies: No Known Allergies (Unverified , 11/16/14) ROS Limited/Unobtainable: No Constitutional: Reports: no symptoms HEENT: Reports: no symptoms Cardiovascular: Reports: no symptoms Respiratory: Reports: no symptoms Gastrointestinal/Abdominal: Reports: no symptoms Genitourinary: Reports: no symptoms Neurologic/Psychiatric: Reports: no symptoms Subjective 66 YO M admitted with C. Diff diarrhea. Cover for Int [facility]-Dr Fay Objective Last Vital Signs Date Time Temp Pulse Resp B/P (MAP) Pulse Ox O2 Delivery O2 Flow Rate FiO2 07/23/17 16:00 81 07/23/17 12:00 97.6 16 140/83 98 Room Air 97.6 General Appearance: WD/WN, no apparent distress, alert, other - disheveled EENT: PERRL/EOMI, normal ENT inspection, TMs normal Neck: non-tender, normal alignment, supple, normal inspection Cardiovascular: normal peripheral pulses, normal rate, regular rhythm, no gallop/murmur, no JVD Respiratory/Chest: chest wall non-tender, lungs clear, normal breath sounds, no respiratory distress, no accessory muscle use Abdomen: normal bowel sounds, non tender, soft, no organomegaly, no mass Extremities: normal range of motion, non-tender 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, no motor/sensory deficits Skin: normal pigmentation, warm/dry Laboratory Tests Test 07/23/17 06:40 White Blood Count 12.2 K/UL (4.8-10.8) H Red Blood Count 3.43 M/UL (4.70-6.10) L Hemoglobin 9.8 G/DL (14.2-18.0) L Hematocrit 28.2 % (42.0-52.0) L Mean Corpuscular Volume 82 FL (80-99) Mean Corpuscular Hemoglobin 28.7 PG (27.0-31.0) Mean Corpuscular Hemoglobin Concent 35.0 G/DL (32.0-36.0) Red Cell Distribution Width 11.7 % (11.6-14.8) Platelet Count 199 K/UL (150-450) Mean Platelet Volume 8.0 FL (6.5-10.1) Neutrophils (%) (Auto) 79.1 % (45.0-75.0) H Lymphocytes (%) (Auto) 13.9 % (20.0-45.0) L Monocytes (%) (Auto) 5.1 % (1.0-10.0) Eosinophils (%) (Auto) 1.1 % (0.0-3.0) Basophils (%) (Auto) 0.7 % (0.0-2.0) Sodium Level 138 MMOL/L (136-145) Potassium Level 3.4 MMOL/L (3.5-5.1) L Chloride Level 105 MMOL/L (98-107) Carbon Dioxide Level 22 MMOL/L (21-32) Anion Gap 12 mmol/L (5-15) Blood Urea Nitrogen 10 mg/dL (7-18) Creatinine 0.9 MG/DL (0.55-1.30) Estimat Glomerular Filtration Rate > 60 mL/min (>60) Glucose Level 147 MG/DL (74-106) H Calcium Level 8.1 MG/DL (8.5-10.1) L Microbiology Date/Time Source Procedure Growth Status 07/21/17 20:40 Blood Blood Culture - Preliminary NO GROWTH AFTER 24 HOURS Resulted 07/21/17 20:30 Blood Blood Culture - Preliminary NO GROWTH AFTER 24 HOURS Resulted 07/21/17 22:20 Stool Stool Culture - Preliminary Resulted 07/21/17 22:20 Stool Clostridium difficile Toxin Assay - Final Complete 07/21/17 22:20 Urine,Clean Catch Urine Culture - Preliminary Mixed Gram Positive Organism Resulted Intake and Output 07/22/17 07/23/17 19:00 07:00 Intake Total 580 ml Output Total 300 ml Balance 580 ml -300 ml Intake Oral 580 ml Output Urine Total 300 ml # Bowel Movements 4 Assessment/Plan Problem List: (1) Leukocytosis Assessment & Plan: Improving. See ID note (2) Clostridium difficile diarrhea Assessment & Plan: Continue oral vanco per ID (3) Failure to thrive (4) Cellulitis of right lower extremity Assessment & Plan: S/P antibiotic (5) Osteomyelitis Assessment & Plan: Right great toe. S/P antibiotic (6) Hemorrhage of gastrointestinal tract (7) Diabetes mellitus, type II Assessment & Plan: Continue novolog sliding scale. (8) HTN (hypertension) (9) Hypercholesteremia (10) S/P BKA (below knee amputation) unilateral (11) GERD (gastroesophageal reflux disease) (12) Gastritis Status: stable Daniel Tafoya MD July 23, 2017 18:01
[2017-07-23 19:27] VITALS: BP 117/57
[2017-07-23] MEDS ORDERED: Heparin 5000 units/ml inj SUBQ SCH (21:00)
[2017-07-23] MEDS ORDERED: LORazepam Inj 2mg/ml 1ml IV PRN (22:45)
[2017-07-23] MEDS ORDERED: Zolpidem 5mg tab ORAL PRN (22:45)
[2017-07-23] MEDS ORDERED: Mylanta II UD 30ml ORAL PRN (22:45)
[2017-07-23] MEDS ORDERED: Miralax 17gm pkt ORAL PRN (22:45)
[2017-07-23 23:55] VITALS: BP 122/65
[2017-07-24 04:08] VITALS: BP 137/73
[2017-07-24] MEDS: NovoLOG Insulin Flexpen SUBQ SCH ×4 (05:37→22:34)
[2017-07-24] MEDS ORDERED: sitaGLIPtin 50mg tab ORAL SCH ×2 (06:30)
[2017-07-24 07:20] LABS: BASOPHILS % (AUTO) 0.6 % (0.0-2.0); EOSINOPHILS % (AUTO) 2.2 % (0.0-3.0); HEMATOCRIT 27.9 % (42.0-52.0); HEMOGLOBIN 9.6 G/DL (14.2-18.0); LYMPHOCYTES % (AUTO) 19.7 % (20.0-45.0); MEAN CORPUSCULAR VOLUME 81 FL (80-99); MONOCYTES % (AUTO) 5.7 % (1.0-10.0); NEUTROPHILS % (AUTO) 71.8 % (45.0-75.0); PLATELET COUNT 225 K/UL (150-450); RED BLOOD COUNT 3.45 M/UL (4.70-6.10); RED CELL DISTRIBUTION WIDTH 11.7 % (11.6-14.8); WHITE BLOOD COUNT 9.4 K/UL (4.8-10.8)
[2017-07-24 08:00] VITALS: BP 146/80
[2017-07-24 08:15] LABS: ANION GAP 7 mmol/L (5-15); BLOOD UREA NITROGEN 9 mg/dL (7-18); CALCIUM 7.7 MG/DL (8.5-10.1); CARBON DIOXIDE 27 MMOL/L (21-32); CHLORIDE 104 MMOL/L (98-107); POTASSIUM 3.6 MMOL/L (3.5-5.1); SODIUM 138 MMOL/L (136-145)
[2017-07-24] MEDS: Vancomycin oral 125mg/2.5ml ORAL SCH ×4 (09:30→23:21)
[2017-07-24 12:00] VITALS: BP 143/79
[2017-07-24] MEDS ORDERED: Mylanta II UD 30ml ORAL PRN (12:00)
[2017-07-24] MEDS ORDERED: Heparin 5000 units/ml inj SUBQ SCH (12:00)
--- NOTE | 2017-07-24 12:33 | Infectious Diseases Prog Note ---
Assessment/Plan Assessment/Plan Assessment: Sepsis , SP Severe Cdiff; improving -Cdiff + -CXR: Suggestion of mild basal atelectasis. Correlate clinically -u/a wbc 2/4, nit +, leuk +2; ucx NTD Bcx NTD Leukocytosis, SP -afebrile MENG, improving Recent Right foot cellulitis and right big toe. osteo , s/p Rx -MRI R foot: Findings suspicious for osteomyelitis of the distal aspect of the first distal phalanx -wound cx E.fecalis ([place] S), CoNS (likely represents colonizers) -RP : 2.4 => 07/02 : 0.4 -06/28 ESR : 74 => 07/02 : 31 Recent Coffee ground Emesis 2ry to diffuse gastitis -s/p EGD 07/08: Diffuse gastritis, status post biopsy, otherwise normal upper endoscopic examination. Diabetes. Hyperlipidemia. Hypertension. Left BKA. History of alcohol abuse and smoking until recently. chronic thrombosis of superficial femoral vein. Plan: -Continue to PO Vancomycin 125mg qid abx d# for Cdiff. -07/22 SP PO Flagyl #2 -07/21 SP IV Vanco and Unasyn x1 - 07/01 SP IV vancomycin and Ceftriaxone and Flagyl ( abx d# 42/42 ) -05/24 SP Cefepime #4 -f/u cx -Monitor CBC/BMP, temperatures -contact precautions -wound care/prevention per hospital protocol Subjective Allergies: Coded Allergies: No Known Allergies (Unverified , 11/16/14) Subjective no diarrhea today Objective Vital Signs Last 24 Hour Vital Signs Date Time Temp Pulse Resp B/P (MAP) Pulse Ox O2 Delivery O2 Flow Rate FiO2 07/24/17 12:00 98.2 95 19 143/79 97 98.2 07/24/17 08:00 98.2 84 19 146/80 96 98.2 07/24/17 04:08 98.1 90 20 137/73 98 Room Air 98.1 07/23/17 23:55 98.1 87 20 122/65 Room Air 98.1 07/23/17 21:38 98.2 07/23/17 19:27 98.2 69 20 117/57 97 Room Air 98.2 07/23/17 16:00 81 07/23/17 15:19 79 Height (Feet): 5 Height (Inches): 5.00 Weight (Pounds): 135 HEENT: mucous membranes moist Respiratory/Chest: no respiratory distress Cardiovascular: no gallop/murmur Abdomen: no scars Microbiology Date/Time Source Procedure Growth Status 07/21/17 20:40 Blood Blood Culture - Preliminary NO GROWTH AFTER 48 HOURS Resulted 07/21/17 20:30 Blood Blood Culture - Preliminary NO GROWTH AFTER 48 HOURS Resulted 07/21/17 22:20 Nasal Nares MRSA Culture - Final NO METHICILLIN RESISTANT STAPH AUREUS... Complete 07/21/17 22:20 Stool Stool Culture - Preliminary NORMAL FECAL DIANA. Resulted 07/21/17 22:20 Stool Clostridium difficile Toxin Assay - Final Complete 07/21/17 22:20 Urine,Clean Catch Urine Culture - Final Mixed Gram Positive Organism Complete 07/21/17 22:20 Rectum VRE Culture - Final Enterococcus Faecium - Vre Complete Laboratory Tests Test 07/24/17 05:25 White Blood Count 9.4 K/UL (4.8-10.8) Red Blood Count 3.45 M/UL (4.70-6.10) L Hemoglobin 9.6 G/DL (14.2-18.0) L Hematocrit 27.9 % (42.0-52.0) L Mean Corpuscular Volume 81 FL (80-99) Mean Corpuscular Hemoglobin 27.7 PG (27.0-31.0) Mean Corpuscular Hemoglobin Concent 34.2 G/DL (32.0-36.0) Red Cell Distribution Width 11.7 % (11.6-14.8) Platelet Count 225 K/UL (150-450) Mean Platelet Volume 8.8 FL (6.5-10.1) Neutrophils (%) (Auto) 71.8 % (45.0-75.0) Lymphocytes (%) (Auto) 19.7 % (20.0-45.0) L Monocytes (%) (Auto) 5.7 % (1.0-10.0) Eosinophils (%) (Auto) 2.2 % (0.0-3.0) Basophils (%) (Auto) 0.6 % (0.0-2.0) Sodium Level 138 MMOL/L (136-145) Potassium Level 3.6 MMOL/L (3.5-5.1) Chloride Level 104 MMOL/L (98-107) Carbon Dioxide Level 27 MMOL/L (21-32) Anion Gap 7 mmol/L (5-15) Blood Urea Nitrogen 9 mg/dL (7-18) Creatinine 1.0 MG/DL (0.55-1.30) Estimat Glomerular Filtration Rate > 60 mL/min (>60) Glucose Level 196 MG/DL (74-106) H Calcium Level 7.7 MG/DL (8.5-10.1) L Current Medications Medications (Trade) Dose Ordered Sig/Caden Route PRN Reason Start Time Stop Time Status Last Admin Dose Admin Acetaminophen (Tylenol) 650 mg Q4H PRN ORAL fever 07/24/17 12:00 08/23/17 11:59 Al Hydroxide/Mg Hydroxide (Mylanta II) 30 ml Q6H PRN ORAL dyspepsia 07/24/17 12:00 08/23/17 11:59 Dextrose (Dextrose 50%) STAT PRN IV Hypoglycemia 07/24/17 12:00 08/23/17 11:59 Dextrose (Dextrose 50%) STAT PRN IV Hypoglycemia 07/24/17 12:00 08/23/17 11:59 Heparin Sodium (Porcine) (Heparin 5000 units/ml) 5,000 units EVERY 12 HOURS SUBQ 07/24/17 21:00 08/23/17 20:59 Heparin Sodium (Porcine) (Heparin 5000 units/ml) 5,000 units ONCE SUBQ 07/24/17 12:00 07/24/17 13:00 07/24/17 12:05 Insulin Aspart (NovoLOG) BEFORE MEALS AND HS SUBQ 07/23/17 21:00 08/21/17 06:29 07/24/17 12:05 Lorazepam (Ativan 2mg/ml 1ml) 0.5 mg Q4H PRN IV For Anxiety 07/23/17 22:45 07/28/17 22:44 Ondansetron HCl (Zofran) 4 mg Q6H PRN IVP Nausea & Vomiting 07/23/17 22:45 08/20/17 22:44 Pantoprazole (Protonix) 40 mg DAILY ORAL 07/25/17 09:00 08/24/17 08:59 Polyethylene Glycol (Miralax) 17 gm HSPRN PRN ORAL Constipation 07/23/17 22:45 08/20/17 22:44 Sitagliptin Phosphate (Januvia) 50 mg ACBREAKFAST ORAL 07/25/17 06:30 08/24/17 06:29 Vancomycin HCl (Vancomycin) 125 mg FOUR TIMES A DAY ORAL 07/23/17 21:00 07/29/17 17:59 07/24/17 09:30 Zolpidem Tartrate (Ambien) 5 mg HSPRN PRN ORAL Insomnia 07/23/17 22:45 07/28/17 22:44 Yuriy Kelsey MD July 24, 2017 12:33
--- NOTE | 2017-07-24 15:14 | Internal Med Progress Note ---
Subjective Date of Service: July 24, 2017 Physician Name Daniel Tafoya Attending Physician Tello Fay MD Current Medications Medications (Trade) Dose Ordered Sig/Caden Route PRN Reason Start Time Stop Time Status Last Admin Dose Admin Acetaminophen (Tylenol) 650 mg Q4H PRN ORAL fever 07/24/17 12:00 08/23/17 11:59 Al Hydroxide/Mg Hydroxide (Mylanta II) 30 ml Q6H PRN ORAL dyspepsia 07/24/17 12:00 08/23/17 11:59 Dextrose (Dextrose 50%) STAT PRN IV Hypoglycemia 07/24/17 12:00 08/23/17 11:59 Dextrose (Dextrose 50%) STAT PRN IV Hypoglycemia 07/24/17 12:00 08/23/17 11:59 Heparin Sodium (Porcine) (Heparin 5000 units/ml) 5,000 units EVERY 12 HOURS SUBQ 07/24/17 21:00 08/23/17 20:59 Insulin Aspart (NovoLOG) BEFORE MEALS AND HS SUBQ 07/23/17 21:00 08/21/17 06:29 07/24/17 12:05 Lorazepam (Ativan 2mg/ml 1ml) 0.5 mg Q4H PRN IV For Anxiety 07/23/17 22:45 07/28/17 22:44 Ondansetron HCl (Zofran) 4 mg Q6H PRN IVP Nausea & Vomiting 07/23/17 22:45 08/20/17 22:44 Pantoprazole (Protonix) 40 mg DAILY ORAL 07/25/17 09:00 08/24/17 08:59 Polyethylene Glycol (Miralax) 17 gm HSPRN PRN ORAL Constipation 07/23/17 22:45 08/20/17 22:44 Sitagliptin Phosphate (Januvia) 50 mg ACBREAKFAST ORAL 07/25/17 06:30 08/24/17 06:29 Vancomycin HCl (Vancomycin) 125 mg FOUR TIMES A DAY ORAL 07/23/17 21:00 07/29/17 17:59 07/24/17 12:41 Zolpidem Tartrate (Ambien) 5 mg HSPRN PRN ORAL Insomnia 07/23/17 22:45 07/28/17 22:44 Allergies: Coded Allergies: No Known Allergies (Unverified , 11/16/14) ROS Limited/Unobtainable: No Constitutional: Reports: no symptoms HEENT: Reports: no symptoms Cardiovascular: Reports: no symptoms Respiratory: Reports: no symptoms Gastrointestinal/Abdominal: Reports: abdominal pain Genitourinary: Reports: no symptoms Neurologic/Psychiatric: Reports: no symptoms Subjective 66 YO M admitted with C. Diff diarrhea. Cover for Int [facility] Fay Objective Last Vital Signs Date Time Temp Pulse Resp B/P (MAP) Pulse Ox O2 Delivery O2 Flow Rate FiO2 07/24/17 12:00 98.2 95 19 143/79 97 98.2 07/24/17 04:08 Room Air Laboratory Tests Test 07/24/17 05:25 White Blood Count 9.4 K/UL (4.8-10.8) Red Blood Count 3.45 M/UL (4.70-6.10) L Hemoglobin 9.6 G/DL (14.2-18.0) L Hematocrit 27.9 % (42.0-52.0) L Mean Corpuscular Volume 81 FL (80-99) Mean Corpuscular Hemoglobin 27.7 PG (27.0-31.0) Mean Corpuscular Hemoglobin Concent 34.2 G/DL (32.0-36.0) Red Cell Distribution Width 11.7 % (11.6-14.8) Platelet Count 225 K/UL (150-450) Mean Platelet Volume 8.8 FL (6.5-10.1) Neutrophils (%) (Auto) 71.8 % (45.0-75.0) Lymphocytes (%) (Auto) 19.7 % (20.0-45.0) L Monocytes (%) (Auto) 5.7 % (1.0-10.0) Eosinophils (%) (Auto) 2.2 % (0.0-3.0) Basophils (%) (Auto) 0.6 % (0.0-2.0) Sodium Level 138 MMOL/L (136-145) Potassium Level 3.6 MMOL/L (3.5-5.1) Chloride Level 104 MMOL/L (98-107) Carbon Dioxide Level 27 MMOL/L (21-32) Anion Gap 7 mmol/L (5-15) Blood Urea Nitrogen 9 mg/dL (7-18) Creatinine 1.0 MG/DL (0.55-1.30) Estimat Glomerular Filtration Rate > 60 mL/min (>60) Glucose Level 196 MG/DL (74-106) H Calcium Level 7.7 MG/DL (8.5-10.1) L Microbiology Date/Time Source Procedure Growth Status 07/21/17 20:40 Blood Blood Culture - Preliminary NO GROWTH AFTER 48 HOURS Resulted 07/21/17 20:30 Blood Blood Culture - Preliminary NO GROWTH AFTER 48 HOURS Resulted 07/21/17 22:20 Nasal Nares MRSA Culture - Final NO METHICILLIN RESISTANT STAPH AUREUS... Complete 07/21/17 22:20 Stool Stool Culture - Preliminary NORMAL FECAL DIANA. Resulted 07/21/17 22:20 Stool Clostridium difficile Toxin Assay - Final Complete 07/21/17 22:20 Urine,Clean Catch Urine Culture - Final Mixed Gram Positive Organism Complete 07/21/17 22:20 Rectum VRE Culture - Final Enterococcus Faecium - Vre Complete Intake and Output 07/23/17 07/24/17 19:00 07:00 Intake Total 1240 ml Output Total 850 ml Balance 390 ml Intake Oral 1240 ml Output Urine Total 850 ml # Voids 1 3 # Bowel Movements 1 1 Objective General Appearance: WD/WN, no apparent distress, alert, other - disheveled EENT: PERRL/EOMI, normal ENT inspection, TMs normal Neck: non-tender, normal alignment, supple, normal inspection Cardiovascular: normal peripheral pulses, normal rate, regular rhythm, no gallop/murmur, no JVD Respiratory/Chest: chest wall non-tender, lungs clear, normal breath sounds, no respiratory distress, no accessory muscle use Abdomen: normal bowel sounds, non tender, soft, no organomegaly, no mass Extremities: normal range of motion, non-tender 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 See ID note (2) Clostridium difficile diarrhea Assessment & Plan: Continue oral vanco per ID (3) Failure to thrive (4) Cellulitis of right lower extremity Assessment & Plan: S/P antibiotic (5) Osteomyelitis Assessment & Plan: Right great toe. S/P antibiotic (6) Hemorrhage of gastrointestinal tract (7) Diabetes mellitus, type II Assessment & Plan: Continue novolog sliding scale. (8) HTN (hypertension) (9) Hypercholesteremia (10) S/P BKA (below knee amputation) unilateral (11) GERD (gastroesophageal reflux disease) (12) Gastritis Status: progressing Daniel Tafoya MD July 24, 2017 15:14
[2017-07-24 16:00] VITALS: BP 137/78
[2017-07-24 20:00] VITALS: BP 131/73
--- NOTE | 2017-07-24 22:12 | Pulmonology Progress Note ---
Assessment/Plan Problems: (1) Cellulitis of right lower extremity (2) Tachycardia (3) Sepsis Assessment/Plan getting better check cultures all reviewed med/surg wbc lower iv abx check electrolytes Subjective ROS Limited/Unobtainable: No Allergies: Coded Allergies: No Known Allergies (Unverified , 11/16/14) Objective Last 24 Hour Vital Signs Date Time Temp Pulse Resp B/P (MAP) Pulse Ox O2 Delivery O2 Flow Rate FiO2 07/24/17 20:00 98.1 82 19 131/73 96 Room Air 98.1 07/24/17 16:00 97.3 88 20 137/78 97 97.3 07/24/17 12:00 98.2 95 19 143/79 97 98.2 07/24/17 08:00 98.2 84 19 146/80 96 98.2 07/24/17 04:08 98.1 90 20 137/73 98 Room Air 98.1 07/23/17 23:55 98.1 87 20 122/65 Room Air 98.1 Intake and Output 07/23/17 07/24/17 19:00 07:00 Intake Total 1240 ml Output Total 850 ml Balance 390 ml Intake Oral 1240 ml Output Urine Total 850 ml # Voids 1 3 # Bowel Movements 1 1 Objective General Appearance: WD/WN HEENT: normocephalic Respiratory/Chest: chest wall non-tender, lungs clear Cardiovascular: normal peripheral pulses, normal rate Abdomen: normal bowel sounds, soft, non tender Genitourinary: normal external genitalia Extremities: no clubbing 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 Complete 07/21/17 22:20 Stool Stool Culture - Preliminary NORMAL FECAL DIANA. Resulted 07/21/17 22:20 Stool Clostridium difficile Toxin Assay - Final Complete 07/21/17 22:20 Urine,Clean Catch Urine Culture - Final Mixed Gram Positive Organism Complete 07/21/17 22:20 Rectum VRE Culture - Final Enterococcus Faecium - Vre Complete Laboratory Tests 07/24/17 05:25: White Blood Count 9.4, Red Blood Count 3.45L, Hemoglobin 9.6L, Hematocrit 27.9L , Mean Corpuscular Volume 81, Mean Corpuscular Hemoglobin 27.7, Mean Corpuscular Hemoglobin Concent 34.2, Red Cell Distribution Width 11.7, Platelet Count 225, Mean Platelet Volume 8.8, Neutrophils (%) (Auto) 71.8, Lymphocytes (% ) (Auto) 19.7L, Monocytes (%) (Auto) 5.7, Eosinophils (%) (Auto) 2.2, Basophils (%) (Auto) 0.6, Sodium Level 138, Potassium Level 3.6, Chloride Level 104, Carbon Dioxide Level 27, Anion Gap 7, Blood Urea Nitrogen 9, Creatinine 1.0, Estimat Glomerular Filtration Rate > 60, Glucose Level 196H, Calcium Level 7.7L Current Medications Medications (Trade) Dose Ordered Sig/Caden Route PRN Reason Start Time Stop Time Status Last Admin Dose Admin Acetaminophen (Tylenol) 650 mg Q4H PRN ORAL fever 07/24/17 12:00 08/23/17 11:59 Al Hydroxide/Mg Hydroxide (Mylanta II) 30 ml Q6H PRN ORAL dyspepsia 07/24/17 12:00 08/23/17 11:59 Dextrose (Dextrose 50%) STAT PRN IV Hypoglycemia 07/24/17 12:00 08/23/17 11:59 Dextrose (Dextrose 50%) STAT PRN IV Hypoglycemia 07/24/17 12:00 08/23/17 11:59 Heparin Sodium (Porcine) (Heparin 5000 units/ml) 5,000 units EVERY 12 HOURS SUBQ 07/24/17 21:00 08/23/17 20:59 Insulin Aspart (NovoLOG) BEFORE MEALS AND HS SUBQ 07/23/17 21:00 08/21/17 06:29 07/24/17 17:07 Lorazepam (Ativan 2mg/ml 1ml) 0.5 mg Q4H PRN IV For Anxiety 07/23/17 22:45 07/28/17 22:44 Ondansetron HCl (Zofran) 4 mg Q6H PRN IVP Nausea & Vomiting 07/23/17 22:45 08/20/17 22:44 Pantoprazole (Protonix) 40 mg DAILY ORAL 07/25/17 09:00 08/24/17 08:59 Polyethylene Glycol (Miralax) 17 gm HSPRN PRN ORAL Constipation 07/23/17 22:45 08/20/17 22:44 Sitagliptin Phosphate (Januvia) 50 mg ACBREAKFAST ORAL 07/25/17 06:30 08/24/17 06:29 Vancomycin HCl (Vancomycin) 125 mg FOUR TIMES A DAY ORAL 07/23/17 21:00 07/29/17 17:59 07/24/17 17:05 Zolpidem Tartrate (Ambien) 5 mg HSPRN PRN ORAL Insomnia 07/23/17 22:45 07/28/17 22:44 Kyra Massey MD July 24, 2017 22:12
[2017-07-24] MEDS: Heparin 5000 units/ml inj SUBQ SCH (22:34)
[2017-07-25] VITALS: BP 109/57
[2017-07-25 04:00] VITALS: BP 126/65
[2017-07-25] MEDS: sitaGLIPtin 50mg tab ORAL SCH (06:03)
[2017-07-25] MEDS: NovoLOG Insulin Flexpen SUBQ SCH ×4 (06:04→20:32)
[2017-07-25 07:57] LABS: BASOPHILS % (AUTO) 0.8 % (0.0-2.0); EOSINOPHILS % (AUTO) 2.6 % (0.0-3.0); HEMATOCRIT 28.5 % (42.0-52.0); HEMOGLOBIN 9.5 G/DL (14.2-18.0); LYMPHOCYTES % (AUTO) 28.7 % (20.0-45.0); MEAN CORPUSCULAR VOLUME 82 FL (80-99); MONOCYTES % (AUTO) 7.9 % (1.0-10.0); NEUTROPHILS % (AUTO) 60.1 % (45.0-75.0); PLATELET COUNT 215 K/UL (150-450); RED BLOOD COUNT 3.47 M/UL (4.70-6.10); RED CELL DISTRIBUTION WIDTH 11.9 % (11.6-14.8); WHITE BLOOD COUNT 7.3 K/UL (4.8-10.8)
[2017-07-25 08:00] VITALS: BP 125/62
[2017-07-25] MEDS: Vancomycin oral 125mg/2.5ml ORAL SCH ×4 (08:38→20:29)
[2017-07-25] MEDS: Heparin 5000 units/ml inj SUBQ SCH ×2 (08:39→20:30)
[2017-07-25 08:42] LABS: ANION GAP 8 mmol/L (5-15); BLOOD UREA NITROGEN 8 mg/dL (7-18); CALCIUM 7.9 MG/DL (8.5-10.1); CARBON DIOXIDE 28 MMOL/L (21-32); CHLORIDE 104 MMOL/L (98-107); CREATININE 0.9 MG/DL (0.55-1.30); POTASSIUM 3.4 MMOL/L (3.5-5.1); SODIUM 140 MMOL/L (136-145)
[2017-07-25 12:00] VITALS: BP 144/77
--- NOTE | 2017-07-25 13:23 | Internal Med Progress Note ---
Subjective Date of Service: July 25, 2017 Physician Name Daniel Tafoya Attending Physician Tello Fay MD Current Medications Medications (Trade) Dose Ordered Sig/Caden Route PRN Reason Start Time Stop Time Status Last Admin Dose Admin Acetaminophen (Tylenol) 650 mg Q4H PRN ORAL fever 07/24/17 12:00 08/23/17 11:59 Al Hydroxide/Mg Hydroxide (Mylanta II) 30 ml Q6H PRN ORAL dyspepsia 07/24/17 12:00 08/23/17 11:59 Dextrose (Dextrose 50%) STAT PRN IV Hypoglycemia 07/24/17 12:00 08/23/17 11:59 Dextrose (Dextrose 50%) STAT PRN IV Hypoglycemia 07/24/17 12:00 08/23/17 11:59 Heparin Sodium (Porcine) (Heparin 5000 units/ml) 5,000 units EVERY 12 HOURS SUBQ 07/24/17 21:00 08/23/17 20:59 07/25/17 08:39 Insulin Aspart (NovoLOG) BEFORE MEALS AND HS SUBQ 07/23/17 21:00 08/21/17 06:29 07/25/17 11:24 Lorazepam (Ativan 2mg/ml 1ml) 0.5 mg Q4H PRN IV For Anxiety 07/23/17 22:45 07/28/17 22:44 Ondansetron HCl (Zofran) 4 mg Q6H PRN IVP Nausea & Vomiting 07/23/17 22:45 08/20/17 22:44 Pantoprazole (Protonix) 40 mg DAILY ORAL 07/25/17 09:00 08/24/17 08:59 07/25/17 08:38 Polyethylene Glycol (Miralax) 17 gm HSPRN PRN ORAL Constipation 07/23/17 22:45 08/20/17 22:44 Sitagliptin Phosphate (Januvia) 50 mg ACBREAKFAST ORAL 07/25/17 06:30 08/24/17 06:29 07/25/17 06:03 Vancomycin HCl (Vancomycin) 125 mg FOUR TIMES A DAY ORAL 07/23/17 21:00 07/29/17 17:59 07/25/17 12:58 Zolpidem Tartrate (Ambien) 5 mg HSPRN PRN ORAL Insomnia 07/23/17 22:45 5/16/18 22:44 Allergies: Coded Allergies: No Known Allergies (Unverified , 11/16/14) ROS Limited/Unobtainable: No Constitutional: Reports: no symptoms HEENT: Reports: no symptoms Cardiovascular: Reports: no symptoms Respiratory: Reports: no symptoms Gastrointestinal/Abdominal: Reports: no symptoms Genitourinary: Reports: no symptoms Neurologic/Psychiatric: Reports: no symptoms Subjective 66 YO M admitted with C. Diff diarrhea. Cover for Int [facility] Fay Objective Last Vital Signs Date Time Temp Pulse Resp B/P (MAP) Pulse Ox O2 Delivery O2 Flow Rate FiO2 07/25/17 12:00 98.2 75 19 144/77 97 98.2 07/25/17 04:00 Room Air Laboratory Tests Test 07/25/17 05:15 White Blood Count 7.3 K/UL (4.8-10.8) Red Blood Count 3.47 M/UL (4.70-6.10) L Hemoglobin 9.5 G/DL (14.2-18.0) L Hematocrit 28.5 % (42.0-52.0) L Mean Corpuscular Volume 82 FL (80-99) Mean Corpuscular Hemoglobin 27.4 PG (27.0-31.0) Mean Corpuscular Hemoglobin Concent 33.3 G/DL (32.0-36.0) Red Cell Distribution Width 11.9 % (11.6-14.8) Platelet Count 215 K/UL (150-450) Mean Platelet Volume 7.6 FL (6.5-10.1) Neutrophils (%) (Auto) 60.1 % (45.0-75.0) Lymphocytes (%) (Auto) 28.7 % (20.0-45.0) Monocytes (%) (Auto) 7.9 % (1.0-10.0) Eosinophils (%) (Auto) 2.6 % (0.0-3.0) Basophils (%) (Auto) 0.8 % (0.0-2.0) Sodium Level 140 MMOL/L (136-145) Potassium Level 3.4 MMOL/L (3.5-5.1) L Chloride Level 104 MMOL/L (98-107) Carbon Dioxide Level 28 MMOL/L (21-32) Anion Gap 8 mmol/L (5-15) Blood Urea Nitrogen 8 mg/dL (7-18) Creatinine 0.9 MG/DL (0.55-1.30) Estimat Glomerular Filtration Rate > 60 mL/min (>60) Glucose Level 163 MG/DL (74-106) H Calcium Level 7.9 MG/DL (8.5-10.1) L Intake and Output 07/24/17 07/25/17 19:00 07:00 Intake Total 480 ml Output Total 450 ml Balance 30 ml Intake Oral 480 ml Output Urine Total 450 ml # Voids 2 4 # Bowel Movements 2 1 Objective General Appearance: WD/WN, no apparent distress, alert, other - disheveled EENT: PERRL/EOMI, normal ENT inspection, TMs normal Neck: non-tender, normal alignment, supple, normal inspection Cardiovascular: normal peripheral pulses, normal rate, regular rhythm, no gallop/murmur, no JVD Respiratory/Chest: chest wall non-tender, lungs clear, normal breath sounds, no respiratory distress, no accessory muscle use Abdomen: normal bowel sounds, non tender, soft, no organomegaly, no mass Extremities: normal range of motion, non-tender 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 See ID note (2) Clostridium difficile diarrhea Assessment & Plan: Continue oral vanco per ID (3) Failure to thrive (4) Cellulitis of right lower extremity Assessment & Plan: S/P antibiotic (5) Osteomyelitis Assessment & Plan: Right great toe. S/P antibiotic (6) Hemorrhage of gastrointestinal tract (7) Diabetes mellitus, type II Assessment & Plan: Continue novolog sliding scale. (8) HTN (hypertension) (9) Hypercholesteremia (10) S/P BKA (below knee amputation) unilateral (11) GERD (gastroesophageal reflux disease) (12) Gastritis Status: stable Daniel Tafoya MD July 25, 2017 13:23
[2017-07-25 15:47] VITALS: BP 141/77
[2017-07-25 20:00] VITALS: BP 133/72
[2017-07-26] VITALS: BP 150/82
[2017-07-26 04:00] VITALS: BP 139/81
[2017-07-26] MEDS: sitaGLIPtin 50mg tab ORAL SCH (06:29)
[2017-07-26] MEDS: NovoLOG Insulin Flexpen SUBQ SCH ×4 (06:30→20:34)
[2017-07-26 08:00] VITALS: BP 119/61
[2017-07-26 08:08] LABS: BASOPHILS % (AUTO) 0.6 % (0.0-2.0); EOSINOPHILS % (AUTO) 3.2 % (0.0-3.0); HEMATOCRIT 29.7 % (42.0-52.0); HEMOGLOBIN 9.9 G/DL (14.2-18.0); LYMPHOCYTES % (AUTO) 31.6 % (20.0-45.0); MEAN CORPUSCULAR VOLUME 82 FL (80-99); MONOCYTES % (AUTO) 9.8 % (1.0-10.0); NEUTROPHILS % (AUTO) 54.9 % (45.0-75.0); PLATELET COUNT 226 K/UL (150-450); RED BLOOD COUNT 3.61 M/UL (4.70-6.10); RED CELL DISTRIBUTION WIDTH 12.1 % (11.6-14.8)
[2017-07-26] MEDS: Heparin 5000 units/ml inj SUBQ SCH ×2 (08:12→20:35)
[2017-07-26] MEDS: Vancomycin oral 125mg/2.5ml ORAL SCH ×4 (08:12→20:32)
[2017-07-26 08:36] LABS: ANION GAP 8 mmol/L (5-15); BLOOD UREA NITROGEN 7 mg/dL (7-18); CALCIUM 8.3 MG/DL (8.5-10.1); CARBON DIOXIDE 27 MMOL/L (21-32); CHLORIDE 106 MMOL/L (98-107); CREATININE 0.9 MG/DL (0.55-1.30); SODIUM 141 MMOL/L (136-145)
--- NOTE | 2017-07-26 10:57 | Internal Med Progress Note ---
Subjective Date of Service: July 26, 2017 Physician Name Daniel Tafoya Attending Physician Tello Fay MD Current Medications Medications (Trade) Dose Ordered Sig/Caden Route PRN Reason Start Time Stop Time Status Last Admin Dose Admin Acetaminophen (Tylenol) 650 mg Q4H PRN ORAL fever 07/24/17 12:00 08/23/17 11:59 Al Hydroxide/Mg Hydroxide (Mylanta II) 30 ml Q6H PRN ORAL dyspepsia 07/24/17 12:00 08/23/17 11:59 Dextrose (Dextrose 50%) STAT PRN IV Hypoglycemia 07/24/17 12:00 08/23/17 11:59 Dextrose (Dextrose 50%) STAT PRN IV Hypoglycemia 07/24/17 12:00 08/23/17 11:59 Heparin Sodium (Porcine) (Heparin 5000 units/ml) 5,000 units EVERY 12 HOURS SUBQ 07/24/17 21:00 08/23/17 20:59 07/25/17 20:30 Insulin Aspart (NovoLOG) BEFORE MEALS AND HS SUBQ 07/23/17 21:00 08/21/17 06:29 07/26/17 06:30 Lorazepam (Ativan 2mg/ml 1ml) 0.5 mg Q4H PRN IV For Anxiety 07/23/17 22:45 07/28/17 22:44 Ondansetron HCl (Zofran) 4 mg Q6H PRN IVP Nausea & Vomiting 07/23/17 22:45 08/20/17 22:44 Pantoprazole (Protonix) 40 mg DAILY ORAL 07/25/17 09:00 08/24/17 08:59 07/26/17 08:12 Polyethylene Glycol (Miralax) 17 gm HSPRN PRN ORAL Constipation 07/23/17 22:45 08/20/17 22:44 Sitagliptin Phosphate (Januvia) 50 mg ACBREAKFAST ORAL 07/25/17 06:30 08/24/17 06:29 07/26/17 06:29 Vancomycin HCl (Vancomycin) 125 mg FOUR TIMES A DAY ORAL 07/23/17 21:00 07/29/17 17:59 07/26/17 08:12 Zolpidem Tartrate (Ambien) 5 mg HSPRN PRN ORAL Insomnia 07/23/17 22:45 5/16/18 22:44 Allergies: Coded Allergies: No Known Allergies (Unverified , 11/16/14) ROS Limited/Unobtainable: No Constitutional: Reports: no symptoms HEENT: Reports: no symptoms Cardiovascular: Reports: no symptoms Respiratory: Reports: no symptoms Gastrointestinal/Abdominal: Reports: no symptoms Genitourinary: Reports: no symptoms Neurologic/Psychiatric: Reports: no symptoms Subjective 66 YO M admitted with C. Diff diarrhea. Cover for Int [facility] Fay Objective Last Vital Signs Date Time Temp Pulse Resp B/P (MAP) Pulse Ox O2 Delivery O2 Flow Rate FiO2 07/26/17 08:00 97.7 88 20 119/61 96 97.7 07/26/17 04:00 Room Air Laboratory Tests Test 07/26/17 05:20 White Blood Count 6.0 K/UL (4.8-10.8) Red Blood Count 3.61 M/UL (4.70-6.10) L Hemoglobin 9.9 G/DL (14.2-18.0) L Hematocrit 29.7 % (42.0-52.0) L Mean Corpuscular Volume 82 FL (80-99) Mean Corpuscular Hemoglobin 27.5 PG (27.0-31.0) Mean Corpuscular Hemoglobin Concent 33.4 G/DL (32.0-36.0) Red Cell Distribution Width 12.1 % (11.6-14.8) Platelet Count 226 K/UL (150-450) Mean Platelet Volume 6.7 FL (6.5-10.1) Neutrophils (%) (Auto) 54.9 % (45.0-75.0) Lymphocytes (%) (Auto) 31.6 % (20.0-45.0) Monocytes (%) (Auto) 9.8 % (1.0-10.0) Eosinophils (%) (Auto) 3.2 % (0.0-3.0) H Basophils (%) (Auto) 0.6 % (0.0-2.0) Sodium Level 141 MMOL/L (136-145) Potassium Level 4.0 MMOL/L (3.5-5.1) Chloride Level 106 MMOL/L (98-107) Carbon Dioxide Level 27 MMOL/L (21-32) Anion Gap 8 mmol/L (5-15) Blood Urea Nitrogen 7 mg/dL (7-18) Creatinine 0.9 MG/DL (0.55-1.30) Estimat Glomerular Filtration Rate > 60 mL/min (>60) Glucose Level 237 MG/DL (74-106) H Calcium Level 8.3 MG/DL (8.5-10.1) L Intake and Output 07/25/17 07/26/17 19:00 07:00 Intake Total 480 ml Output Total 400 ml Balance 80 ml Intake Oral 480 ml Output Urine Total 400 ml # Voids 3 4 # Bowel Movements 2 1 Objective General Appearance: WD/WN, no apparent distress, alert, other - disheveled EENT: PERRL/EOMI, normal ENT inspection, TMs normal Neck: non-tender, normal alignment, supple, normal inspection Cardiovascular: normal peripheral pulses, normal rate, regular rhythm, no gallop/murmur, no JVD Respiratory/Chest: chest wall non-tender, lungs clear, normal breath sounds, no respiratory distress, no accessory muscle use Abdomen: normal bowel sounds, non tender, soft, no organomegaly, no mass Extremities: normal range of motion, non-tender 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 See ID note (2) Clostridium difficile diarrhea Assessment & Plan: Continue oral vanco Day #6/14 per ID (3) Failure to thrive (4) Cellulitis of right lower extremity Assessment & Plan: S/P antibiotic (5) Osteomyelitis Assessment & Plan: Right great toe. S/P antibiotic (6) Hemorrhage of gastrointestinal tract (7) Diabetes mellitus, type II Assessment & Plan: Continue novolog sliding scale. (8) HTN (hypertension) (9) Hypercholesteremia (10) S/P BKA (below knee amputation) unilateral (11) GERD (gastroesophageal reflux disease) (12) Gastritis Status: progressing Daniel Tafoya MD July 26, 2017 10:57
--- NOTE | 2017-07-26 11:34 | Infectious Diseases Prog Note ---
Assessment/Plan Assessment/Plan Assessment: Sepsis , SP Severe Cdiff; improving -Cdiff + -CXR: Suggestion of mild basal atelectasis. Correlate clinically -u/a wbc 2/4, nit +, leuk +2; ucx NTD Bcx NTD Leukocytosis, SP -afebrile MENG, improving Recent Right foot cellulitis and right big toe. osteo , s/p Rx -MRI R foot: Findings suspicious for osteomyelitis of the distal aspect of the first distal phalanx -wound cx E.fecalis ([place] S), CoNS (likely represents colonizers) -RP : 2.4 => 07/02 : 0.4 -06/28 ESR : 74 => 07/02 : 31 Recent Coffee ground Emesis 2ry to diffuse gastitis -s/p EGD 07/08: Diffuse gastritis, status post biopsy, otherwise normal upper endoscopic examination. Diabetes. Hyperlipidemia. Hypertension. Left BKA. History of alcohol abuse and smoking until recently. chronic thrombosis of superficial femoral vein. Plan: -Continue to PO Vancomycin 125mg qid abx d# for Cdiff. -07/22 SP PO Flagyl #2 -07/21 SP IV Vanco and Unasyn x1 - 07/01 SP IV vancomycin and Ceftriaxone and Flagyl ( abx d# 42/42 ) -05/24 SP Cefepime #4 -f/u Blcx -Monitor CBC/BMP, temperatures -contact precautions -wound care/prevention per hospital protocol Subjective Constitutional: Denies: no symptoms, fever, chills, fatigue, anorexia, drenching sweats, other Allergies: Coded Allergies: No Known Allergies (Unverified , 11/16/14) Subjective no diarrhea today Objective Vital Signs Last 24 Hour Vital Signs Date Time Temp Pulse Resp B/P (MAP) Pulse Ox O2 Delivery O2 Flow Rate FiO2 07/26/17 08:00 97.7 88 20 119/61 96 97.7 07/26/17 04:00 98.7 81 20 139/81 98 Room Air 98.7 07/26/17 00:00 98.8 88 18 150/82 96 Room Air 98.8 07/25/17 20:00 99.0 79 19 133/72 97 Room Air 99.0 07/25/17 15:47 98.2 80 19 141/77 96 98.2 07/25/17 12:00 98.2 75 19 144/77 97 98.2 Height (Feet): 5 Height (Inches): 5.00 Weight (Pounds): 135 HEENT: anicteric Respiratory/Chest: lungs clear Cardiovascular: normal rate Abdomen: no organomegaly Laboratory Tests Test 07/26/17 05:20 White Blood Count 6.0 K/UL (4.8-10.8) Red Blood Count 3.61 M/UL (4.70-6.10) L Hemoglobin 9.9 G/DL (14.2-18.0) L Hematocrit 29.7 % (42.0-52.0) L Mean Corpuscular Volume 82 FL (80-99) Mean Corpuscular Hemoglobin 27.5 PG (27.0-31.0) Mean Corpuscular Hemoglobin Concent 33.4 G/DL (32.0-36.0) Red Cell Distribution Width 12.1 % (11.6-14.8) Platelet Count 226 K/UL (150-450) Mean Platelet Volume 6.7 FL (6.5-10.1) Neutrophils (%) (Auto) 54.9 % (45.0-75.0) Lymphocytes (%) (Auto) 31.6 % (20.0-45.0) Monocytes (%) (Auto) 9.8 % (1.0-10.0) Eosinophils (%) (Auto) 3.2 % (0.0-3.0) H Basophils (%) (Auto) 0.6 % (0.0-2.0) Sodium Level 141 MMOL/L (136-145) Potassium Level 4.0 MMOL/L (3.5-5.1) Chloride Level 106 MMOL/L (98-107) Carbon Dioxide Level 27 MMOL/L (21-32) Anion Gap 8 mmol/L (5-15) Blood Urea Nitrogen 7 mg/dL (7-18) Creatinine 0.9 MG/DL (0.55-1.30) Estimat Glomerular Filtration Rate > 60 mL/min (>60) Glucose Level 237 MG/DL (74-106) H Calcium Level 8.3 MG/DL (8.5-10.1) L Current Medications Medications (Trade) Dose Ordered Sig/Caden Route PRN Reason Start Time Stop Time Status Last Admin Dose Admin Acetaminophen (Tylenol) 650 mg Q4H PRN ORAL fever 07/24/17 12:00 08/23/17 11:59 Al Hydroxide/Mg Hydroxide (Mylanta II) 30 ml Q6H PRN ORAL dyspepsia 07/24/17 12:00 08/23/17 11:59 Dextrose (Dextrose 50%) STAT PRN IV Hypoglycemia 07/24/17 12:00 08/23/17 11:59 Dextrose (Dextrose 50%) STAT PRN IV Hypoglycemia 07/24/17 12:00 08/23/17 11:59 Heparin Sodium (Porcine) (Heparin 5000 units/ml) 5,000 units EVERY 12 HOURS SUBQ 07/24/17 21:00 08/23/17 20:59 07/25/17 20:30 Insulin Aspart (NovoLOG) BEFORE MEALS AND HS SUBQ 07/23/17 21:00 08/21/17 06:29 07/26/17 06:30 Lorazepam (Ativan 2mg/ml 1ml) 0.5 mg Q4H PRN IV For Anxiety 07/23/17 22:45 07/28/17 22:44 Ondansetron HCl (Zofran) 4 mg Q6H PRN IVP Nausea & Vomiting 07/23/17 22:45 08/20/17 22:44 Pantoprazole (Protonix) 40 mg DAILY ORAL 07/25/17 09:00 08/24/17 08:59 07/26/17 08:12 Polyethylene Glycol (Miralax) 17 gm HSPRN PRN ORAL Constipation 07/23/17 22:45 08/20/17 22:44 Sitagliptin Phosphate (Januvia) 50 mg ACBREAKFAST ORAL 07/25/17 06:30 08/24/17 06:29 07/26/17 06:29 Vancomycin HCl (Vancomycin) 125 mg FOUR TIMES A DAY ORAL 07/23/17 21:00 07/29/17 17:59 07/26/17 08:12 Zolpidem Tartrate (Ambien) 5 mg HSPRN PRN ORAL Insomnia 07/23/17 22:45 07/28/17 22:44 Yuriy Kelsey MD July 26, 2017 11:34
[2017-07-26 12:00] VITALS: BP 147/82
--- NOTE | 2017-07-26 15:39 | Pulmonology Progress Note ---
Assessment/Plan Problems: (1) Cellulitis of right lower extremity (2) Tachycardia (3) Sepsis Assessment/Plan med/surg wbc lower iv abx check electrolytes all reviewed Subjective ROS Limited/Unobtainable: No Allergies: Coded Allergies: No Known Allergies (Unverified , 11/16/14) Objective Last 24 Hour Vital Signs Date Time Temp Pulse Resp B/P (MAP) Pulse Ox O2 Delivery O2 Flow Rate FiO2 07/26/17 12:00 98.1 82 18 147/82 98 Room Air 98.1 07/26/17 08:00 97.7 88 20 119/61 96 97.7 07/26/17 04:00 98.7 81 20 139/81 98 Room Air 98.7 07/26/17 00:00 98.8 88 18 150/82 96 Room Air 98.8 07/25/17 20:00 99.0 79 19 133/72 97 Room Air 99.0 07/25/17 15:47 98.2 80 19 141/77 96 98.2 Intake and Output 07/25/17 07/26/17 19:00 07:00 Intake Total 480 ml Output Total 400 ml Balance 80 ml Intake Oral 480 ml Output Urine Total 400 ml # Voids 3 4 # Bowel Movements 2 1 Objective General Appearance: WD/WN HEENT: normocephalic Respiratory/Chest: chest wall non-tender, lungs clear Cardiovascular: normal peripheral pulses, normal rate Abdomen: normal bowel sounds, soft, non tender Genitourinary: normal external genitalia Extremities: no clubbing Neurologic/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 grossly normal Laboratory Tests 07/26/17 05:20: White Blood Count 6.0, Red Blood Count 3.61L, Hemoglobin 9.9L, Hematocrit 29.7L , Mean Corpuscular Volume 82, Mean Corpuscular Hemoglobin 27.5, Mean Corpuscular Hemoglobin Concent 33.4, Red Cell Distribution Width 12.1, Platelet Count 226, Mean Platelet Volume 6.7, Neutrophils (%) (Auto) 54.9, Lymphocytes (% ) (Auto) 31.6, Monocytes (%) (Auto) 9.8, Eosinophils (%) (Auto) 3.2H, Basophils (%) (Auto) 0.6, Sodium Level 141, Potassium Level 4.0, Chloride Level 106, Carbon Dioxide Level 27, Anion Gap 8, Blood Urea Nitrogen 7, Creatinine 0.9, Estimat Glomerular Filtration Rate > 60, Glucose Level 237H, Calcium Level 8.3L Current Medications Medications (Trade) Dose Ordered Sig/Caden Route PRN Reason Start Time Stop Time Status Last Admin Dose Admin Acetaminophen (Tylenol) 650 mg Q4H PRN ORAL fever 07/24/17 12:00 08/23/17 11:59 Al Hydroxide/Mg Hydroxide (Mylanta II) 30 ml Q6H PRN ORAL dyspepsia 07/24/17 12:00 08/23/17 11:59 Dextrose (Dextrose 50%) STAT PRN IV Hypoglycemia 07/24/17 12:00 08/23/17 11:59 Dextrose (Dextrose 50%) STAT PRN IV Hypoglycemia 07/24/17 12:00 08/23/17 11:59 Heparin Sodium (Porcine) (Heparin 5000 units/ml) 5,000 units EVERY 12 HOURS SUBQ 07/24/17 21:00 08/23/17 20:59 07/25/17 20:30 Insulin Aspart (NovoLOG) BEFORE MEALS AND HS SUBQ 07/23/17 21:00 08/21/17 06:29 07/26/17 11:56 Lorazepam (Ativan 2mg/ml 1ml) 0.5 mg Q4H PRN IV For Anxiety 07/23/17 22:45 07/28/17 22:44 Ondansetron HCl (Zofran) 4 mg Q6H PRN IVP Nausea & Vomiting 07/23/17 22:45 08/20/17 22:44 Pantoprazole (Protonix) 40 mg DAILY ORAL 07/25/17 09:00 08/24/17 08:59 07/26/17 08:12 Polyethylene Glycol (Miralax) 17 gm HSPRN PRN ORAL Constipation 07/23/17 22:45 08/20/17 22:44 Sitagliptin Phosphate (Januvia) 50 mg ACBREAKFAST ORAL 07/25/17 06:30 08/24/17 06:29 07/26/17 06:29 Vancomycin HCl (Vancomycin) 125 mg FOUR TIMES A DAY ORAL 07/23/17 21:00 07/29/17 17:59 07/26/17 12:01 Zolpidem Tartrate (Ambien) 5 mg HSPRN PRN ORAL Insomnia 07/23/17 22:45 07/28/17 22:44 Kyra Massey MD July 26, 2017 15:39
[2017-07-26 16:11] VITALS: BP 147/82
[2017-07-26 20:21] VITALS: BP 128/72
[2017-07-27] VITALS (7 sets, daily range): BP systolic 113–144; BP diastolic 62–78
[2017-07-27] MEDS: sitaGLIPtin 50mg tab ORAL SCH (06:06)
[2017-07-27] MEDS: NovoLOG Insulin Flexpen SUBQ SCH ×4 (06:08→21:07)
[2017-07-27 08:08] LABS: BASOPHILS % (AUTO) 0.6 % (0.0-2.0); EOSINOPHILS % (AUTO) 3.2 % (0.0-3.0); HEMATOCRIT 30.8 % (42.0-52.0); HEMOGLOBIN 10.2 G/DL (14.2-18.0); LYMPHOCYTES % (AUTO) 33.3 % (20.0-45.0); MEAN CORPUSCULAR VOLUME 83 FL (80-99); MONOCYTES % (AUTO) 7.6 % (1.0-10.0); NEUTROPHILS % (AUTO) 55.3 % (45.0-75.0); PLATELET COUNT 225 K/UL (150-450); RED BLOOD COUNT 3.72 M/UL (4.70-6.10); RED CELL DISTRIBUTION WIDTH 12.2 % (11.6-14.8); WHITE BLOOD COUNT 7.3 K/UL (4.8-10.8)
[2017-07-27] MEDS: Vancomycin oral 125mg/2.5ml ORAL SCH ×4 (08:08→21:06)
[2017-07-27] MEDS: Heparin 5000 units/ml inj SUBQ SCH ×2 (08:09→21:08)
[2017-07-27 08:29] LABS: ANION GAP 8 mmol/L (5-15); BLOOD UREA NITROGEN 8 mg/dL (7-18); CARBON DIOXIDE 29 MMOL/L (21-32); CHLORIDE 106 MMOL/L (98-107); POTASSIUM 3.9 MMOL/L (3.5-5.1); SODIUM 142 MMOL/L (136-145)
--- NOTE | 2017-07-27 11:12 | Infectious Diseases Prog Note ---
Assessment/Plan Assessment/Plan Assessment: Sepsis , SP Severe Cdiff; , no more diarrhea -Cdiff + -CXR: Suggestion of mild basal atelectasis. Correlate clinically -u/a wbc 2/4, nit +, leuk +2; ucx NTD Bcx NTD Leukocytosis, SP -afebrile MENG, improving Recent Right foot cellulitis and right big toe. osteo , s/p Rx -MRI R foot: Findings suspicious for osteomyelitis of the distal aspect of the first distal phalanx -wound cx E.fecalis ([place] S), CoNS (likely represents colonizers) -RP : 2.4 => 07/02 : 0.4 -06/28 ESR : 74 => 07/02 : 31 Recent Coffee ground Emesis 2ry to diffuse gastitis -s/p EGD 07/08: Diffuse gastritis, status post biopsy, otherwise normal upper endoscopic examination. Diabetes. Hyperlipidemia. Hypertension. Left BKA. History of alcohol abuse and smoking until recently. chronic thrombosis of superficial femoral vein. Plan: -Continue to PO Vancomycin 125mg qid abx d# for Cdiff. ( shorten AB Rx to 10 d , in view of rapid response ) -07/22 SP PO Flagyl #2 -07/21 SP IV Vanco and Unasyn x1 - 07/01 SP IV vancomycin and Ceftriaxone and Flagyl ( abx d# ) -05/24 SP Cefepime #4 -Monitor CBC/BMP, temperatures -contact precautions -wound care/prevention per hospital protocol Subjective Constitutional: Denies: no symptoms, fever, chills, fatigue, anorexia, drenching sweats, other Allergies: Coded Allergies: No Known Allergies (Unverified , 11/16/14) Subjective no diarrhea today Objective Vital Signs Last 24 Hour Vital Signs Date Time Temp Pulse Resp B/P (MAP) Pulse Ox O2 Delivery O2 Flow Rate FiO2 07/27/17 08:00 97.7 76 16 113/62 97.7 07/27/17 04:51 98.0 86 16 131/76 98 98.0 07/27/17 00:40 Room Air 07/27/17 00:36 97.9 82 17 138/72 98 97.9 07/26/17 20:42 Room Air 07/26/17 20:21 97.8 87 17 128/72 96 97.8 07/26/17 16:11 98.1 75 18 147/82 96 Room Air 98.1 07/26/17 12:00 98.1 82 18 147/82 98 Room Air 98.1 Height (Feet): 5 Height (Inches): 5.00 Weight (Pounds): 135 HEENT: anicteric Respiratory/Chest: no respiratory distress Cardiovascular: regular rhythm Abdomen: non distended Laboratory Tests Test 07/27/17 05:40 White Blood Count 7.3 K/UL (4.8-10.8) Red Blood Count 3.72 M/UL (4.70-6.10) L Hemoglobin 10.2 G/DL (14.2-18.0) L Hematocrit 30.8 % (42.0-52.0) L Mean Corpuscular Volume 83 FL (80-99) Mean Corpuscular Hemoglobin 27.5 PG (27.0-31.0) Mean Corpuscular Hemoglobin Concent 33.2 G/DL (32.0-36.0) Red Cell Distribution Width 12.2 % (11.6-14.8) Platelet Count 225 K/UL (150-450) Mean Platelet Volume 7.2 FL (6.5-10.1) Neutrophils (%) (Auto) 55.3 % (45.0-75.0) Lymphocytes (%) (Auto) 33.3 % (20.0-45.0) Monocytes (%) (Auto) 7.6 % (1.0-10.0) Eosinophils (%) (Auto) 3.2 % (0.0-3.0) H Basophils (%) (Auto) 0.6 % (0.0-2.0) Sodium Level 142 MMOL/L (136-145) Potassium Level 3.9 MMOL/L (3.5-5.1) Chloride Level 106 MMOL/L (98-107) Carbon Dioxide Level 29 MMOL/L (21-32) Anion Gap 8 mmol/L (5-15) Blood Urea Nitrogen 8 mg/dL (7-18) Creatinine 1.0 MG/DL (0.55-1.30) Estimat Glomerular Filtration Rate > 60 mL/min (>60) Glucose Level 184 MG/DL (74-106) H Calcium Level 9.0 MG/DL (8.5-10.1) Current Medications Medications (Trade) Dose Ordered Sig/Caden Route PRN Reason Start Time Stop Time Status Last Admin Dose Admin Acetaminophen (Tylenol) 650 mg Q4H PRN ORAL fever 07/24/17 12:00 08/23/17 11:59 Al Hydroxide/Mg Hydroxide (Mylanta II) 30 ml Q6H PRN ORAL dyspepsia 07/24/17 12:00 08/23/17 11:59 Dextrose (Dextrose 50%) STAT PRN IV Hypoglycemia 07/24/17 12:00 08/23/17 11:59 Dextrose (Dextrose 50%) STAT PRN IV Hypoglycemia 07/24/17 12:00 08/23/17 11:59 Heparin Sodium (Porcine) (Heparin 5000 units/ml) 5,000 units EVERY 12 HOURS SUBQ 07/24/17 21:00 08/23/17 20:59 07/27/17 08:09 Insulin Aspart (NovoLOG) BEFORE MEALS AND HS SUBQ 07/23/17 21:00 08/21/17 06:29 07/27/17 06:08 Lorazepam (Ativan 2mg/ml 1ml) 0.5 mg Q4H PRN IV For Anxiety 07/23/17 22:45 07/28/17 22:44 Ondansetron HCl (Zofran) 4 mg Q6H PRN IVP Nausea & Vomiting 07/23/17 22:45 08/20/17 22:44 Pantoprazole (Protonix) 40 mg DAILY ORAL 07/25/17 09:00 08/24/17 08:59 07/27/17 08:08 Polyethylene Glycol (Miralax) 17 gm HSPRN PRN ORAL Constipation 07/23/17 22:45 08/20/17 22:44 Sitagliptin Phosphate (Januvia) 50 mg ACBREAKFAST ORAL 07/25/17 06:30 08/24/17 06:29 07/27/17 06:06 Vancomycin HCl (Vancomycin) 125 mg FOUR TIMES A DAY ORAL 07/23/17 21:00 07/29/17 17:59 07/27/17 08:08 Zolpidem Tartrate (Ambien) 5 mg HSPRN PRN ORAL Insomnia 07/23/17 22:45 07/28/17 22:44 Yuriy Kelsey MD July 27, 2017 11:12
--- NOTE | 2017-07-27 14:07 | Pulmonology Progress Note ---
Assessment/Plan Problems: (1) Cellulitis of right lower extremity (2) Tachycardia (3) Sepsis Assessment/Plan VRE positiive med/surg wbc lower iv abx check electrolytes all reviewed Subjective ROS Limited/Unobtainable: No Constitutional: Reports: no symptoms HEENT: Repors: no symptoms Respiratory: Reports: no symptoms Allergies: Coded Allergies: No Known Allergies (Unverified , 11/16/14) Objective Last 24 Hour Vital Signs Date Time Temp Pulse Resp B/P (MAP) Pulse Ox O2 Delivery O2 Flow Rate FiO2 07/27/17 12:07 96.0 72 16 120/71 96.0 07/27/17 08:00 97.7 76 16 113/62 97.7 07/27/17 04:51 98.0 86 16 131/76 98 98.0 07/27/17 00:40 Room Air 07/27/17 00:36 97.9 82 17 138/72 98 97.9 07/26/17 20:42 Room Air 07/26/17 20:21 97.8 87 17 128/72 96 97.8 07/26/17 16:11 98.1 75 18 147/82 96 Room Air 98.1 Intake and Output 07/26/17 07/27/17 19:00 07:00 Intake Total 600 ml Output Total 900 ml 400 ml Balance -300 ml -400 ml Intake Oral 600 ml Output Urine Total 900 ml 400 ml # Voids 2 # Bowel Movements 1 Objective General Appearance: WD/WN HEENT: normocephalic Respiratory/Chest: chest wall non-tender, lungs clear Cardiovascular: normal peripheral pulses, normal rate Abdomen: normal bowel sounds, soft, non tender Genitourinary: normal external genitalia Extremities: no clubbing Neurologic/Psychiatric: surveillance specialist II-XII grossly normal Laboratory Tests 07/27/17 05:40: White Blood Count 7.3, Red Blood Count 3.72L, Hemoglobin 10.2L, Hematocrit 30.8L , Mean Corpuscular Volume 83, Mean Corpuscular Hemoglobin 27.5, Mean Corpuscular Hemoglobin Concent 33.2, Red Cell Distribution Width 12.2, Platelet Count 225, Mean Platelet Volume 7.2, Neutrophils (%) (Auto) 55.3, Lymphocytes (% ) (Auto) 33.3, Monocytes (%) (Auto) 7.6, Eosinophils (%) (Auto) 3.2H, Basophils (%) (Auto) 0.6, Sodium Level 142, Potassium Level 3.9, Chloride Level 106, Carbon Dioxide Level 29, Anion Gap 8, Blood Urea Nitrogen 8, Creatinine 1.0, Estimat Glomerular Filtration Rate > 60, Glucose Level 184H, Calcium Level 9.0 Current Medications Medications (Trade) Dose Ordered Sig/Caden Route PRN Reason Start Time Stop Time Status Last Admin Dose Admin Acetaminophen (Tylenol) 650 mg Q4H PRN ORAL fever 07/24/17 12:00 08/23/17 11:59 Al Hydroxide/Mg Hydroxide (Mylanta II) 30 ml Q6H PRN ORAL dyspepsia 07/24/17 12:00 08/23/17 11:59 Dextrose (Dextrose 50%) STAT PRN IV Hypoglycemia 07/24/17 12:00 08/23/17 11:59 Dextrose (Dextrose 50%) STAT PRN IV Hypoglycemia 07/24/17 12:00 08/23/17 11:59 Heparin Sodium (Porcine) (Heparin 5000 units/ml) 5,000 units EVERY 12 HOURS SUBQ 07/24/17 21:00 08/23/17 20:59 07/27/17 08:09 Insulin Aspart (NovoLOG) BEFORE MEALS AND HS SUBQ 07/23/17 21:00 08/21/17 06:29 07/27/17 11:37 Lorazepam (Ativan 2mg/ml 1ml) 0.5 mg Q4H PRN IV For Anxiety 07/23/17 22:45 07/28/17 22:44 Ondansetron HCl (Zofran) 4 mg Q6H PRN IVP Nausea & Vomiting 07/23/17 22:45 08/20/17 22:44 Pantoprazole (Protonix) 40 mg DAILY ORAL 07/25/17 09:00 08/24/17 08:59 07/27/17 08:08 Polyethylene Glycol (Miralax) 17 gm HSPRN PRN ORAL Constipation 07/23/17 22:45 08/20/17 22:44 Sitagliptin Phosphate (Januvia) 50 mg ACBREAKFAST ORAL 07/25/17 06:30 08/24/17 06:29 07/27/17 06:06 Vancomycin HCl (Vancomycin) 125 mg FOUR TIMES A DAY ORAL 5/11/18 21:00 07/29/17 17:59 07/27/17 13:02 Zolpidem Tartrate (Ambien) 5 mg HSPRN PRN ORAL Insomnia 07/23/17 22:45 07/28/17 22:44 Kyra Massey MD July 27, 2017 14:07
--- NOTE | 2017-07-27 22:59 | Internal Med Progress Note ---
Subjective Physician Name Tello Fay Attending Physician Tello Fay MD Current Medications Medications (Trade) Dose Ordered Sig/Caden Route PRN Reason Start Time Stop Time Status Last Admin Dose Admin Acetaminophen (Tylenol) 650 mg Q4H PRN ORAL fever 07/24/17 12:00 08/23/17 11:59 Al Hydroxide/Mg Hydroxide (Mylanta II) 30 ml Q6H PRN ORAL dyspepsia 07/24/17 12:00 08/23/17 11:59 Dextrose (Dextrose 50%) STAT PRN IV Hypoglycemia 07/24/17 12:00 08/23/17 11:59 Dextrose (Dextrose 50%) STAT PRN IV Hypoglycemia 07/24/17 12:00 08/23/17 11:59 Heparin Sodium (Porcine) (Heparin 5000 units/ml) 5,000 units EVERY 12 HOURS SUBQ 07/24/17 21:00 08/23/17 20:59 07/27/17 21:08 Insulin Aspart (NovoLOG) BEFORE MEALS AND HS SUBQ 07/23/17 21:00 08/21/17 06:29 07/27/17 21:07 Lorazepam (Ativan 2mg/ml 1ml) 0.5 mg Q4H PRN IV For Anxiety 07/23/17 22:45 07/28/17 22:44 Ondansetron HCl (Zofran) 4 mg Q6H PRN IVP Nausea & Vomiting 07/23/17 22:45 08/20/17 22:44 Pantoprazole (Protonix) 40 mg DAILY ORAL 07/25/17 09:00 08/24/17 08:59 07/27/17 08:08 Polyethylene Glycol (Miralax) 17 gm HSPRN PRN ORAL Constipation 07/23/17 22:45 08/20/17 22:44 Sitagliptin Phosphate (Januvia) 50 mg ACBREAKFAST ORAL 07/25/17 06:30 08/24/17 06:29 07/27/17 06:06 Vancomycin HCl (Vancomycin) 125 mg FOUR TIMES A DAY ORAL 07/23/17 21:00 07/29/17 17:59 07/27/17 21:06 Zolpidem Tartrate (Ambien) 5 mg HSPRN PRN ORAL Insomnia 07/23/17 22:45 07/28/17 22:44 Allergies: Coded Allergies: No Known Allergies (Unverified , 11/16/14) Subjective awake, alert, responsive, NAD Objective Last Vital Signs Date Time Temp Pulse Resp B/P (MAP) Pulse Ox O2 Delivery O2 Flow Rate FiO2 07/27/17 20:00 Room Air 07/27/17 19:42 97.7 87 20 129/69 95 97.7 Laboratory Tests Test 07/27/17 05:40 White Blood Count 7.3 K/UL (4.8-10.8) Red Blood Count 3.72 M/UL (4.70-6.10) L Hemoglobin 10.2 G/DL (14.2-18.0) L Hematocrit 30.8 % (42.0-52.0) L Mean Corpuscular Volume 83 FL (80-99) Mean Corpuscular Hemoglobin 27.5 PG (27.0-31.0) Mean Corpuscular Hemoglobin Concent 33.2 G/DL (32.0-36.0) Red Cell Distribution Width 12.2 % (11.6-14.8) Platelet Count 225 K/UL (150-450) Mean Platelet Volume 7.2 FL (6.5-10.1) Neutrophils (%) (Auto) 55.3 % (45.0-75.0) Lymphocytes (%) (Auto) 33.3 % (20.0-45.0) Monocytes (%) (Auto) 7.6 % (1.0-10.0) Eosinophils (%) (Auto) 3.2 % (0.0-3.0) H Basophils (%) (Auto) 0.6 % (0.0-2.0) Sodium Level 142 MMOL/L (136-145) Potassium Level 3.9 MMOL/L (3.5-5.1) Chloride Level 106 MMOL/L (98-107) Carbon Dioxide Level 29 MMOL/L (21-32) Anion Gap 8 mmol/L (5-15) Blood Urea Nitrogen 8 mg/dL (7-18) Creatinine 1.0 MG/DL (0.55-1.30) Estimat Glomerular Filtration Rate > 60 mL/min (>60) Glucose Level 184 MG/DL (74-106) H Calcium Level 9.0 MG/DL (8.5-10.1) Intake and Output 07/26/17 07/27/17 19:00 07:00 Intake Total 600 ml Output Total 900 ml 400 ml Balance -300 ml -400 ml Intake Oral 600 ml Output Urine Total 900 ml 400 ml # Voids 2 # Bowel Movements 1 Objective General: No acute distress, awake and alert HEENT: NCAT, sclera anicteric, PERRL, EOMI. Neck: Supple, no significant jugular venous distention, Lungs: Good inspiratory effort, clear to auscultation bilaterally, no Wheeze or Rales. Heart: Regular rate and rhythm, normal S1/S2, no murmurs Abdomen: soft, nontender, nondistended. Normoactive bowel sounds. Extremities: No Cyanosis , clubbing or edema. Left BKA Neuro: A&O x 3, Able to move all extremities Assessment/Plan Assessment/Plan Sepsis , SP Severe C. diff colitis , no more diarrhea MENG, improving History of recent Right foot cellulitis and right big toe. osteo , s/p Rx Recent Coffee ground Emesis 2ry to diffuse gastritis -s/p EGD 07/08: Diffuse gastritis, status post biopsy, otherwise normal upper endoscopic examination. Diabetes type 2. Hyperlipidemia. Hypertension. Left BKA. History of alcohol abuse and smoking until recently. chronic thrombosis of superficial femoral vein. Plan: Discharge planning. -Abx: PO Vancomycin 125mg qid abx d# -Monitor Labs and cultures/ -contact precautions -wound care/prevention per hospital protocol Tello Fay MD July 27, 2017 22:59
[2017-07-28 04:08] VITALS: BP 129/65
[2017-07-28] MEDS: sitaGLIPtin 50mg tab ORAL SCH (05:55)
[2017-07-28] MEDS: NovoLOG Insulin Flexpen SUBQ SCH ×4 (05:56→20:41)
[2017-07-28 08:00] VITALS: BP 130/75
[2017-07-28] MEDS: Vancomycin oral 125mg/2.5ml ORAL SCH ×4 (08:21→20:42)
[2017-07-28] MEDS: Heparin 5000 units/ml inj SUBQ SCH ×2 (08:25→20:41)
--- NOTE | 2017-07-28 15:22 | Pulmonology Progress Note ---
Assessment/Plan Problems: (1) Cellulitis of right lower extremity (2) Tachycardia (3) Sepsis Assessment/Plan VRE positiive med/surg wbc lower iv abx check electrolytes all reviewed Subjective ROS Limited/Unobtainable: No Constitutional: Reports: no symptoms HEENT: Repors: no symptoms Respiratory: Reports: no symptoms Allergies: Coded Allergies: No Known Allergies (Unverified , 11/16/14) Objective Last 24 Hour Vital Signs Date Time Temp Pulse Resp B/P (MAP) Pulse Ox O2 Delivery O2 Flow Rate FiO2 07/28/17 08:00 97.0 80 18 130/75 97 Room Air 97.0 07/28/17 04:08 97.7 78 20 129/65 96 Room Air 97.7 07/28/17 04:00 Room Air 07/28/17 00:00 Room Air 07/27/17 23:52 98.2 87 20 144/74 97 Room Air 98.2 07/27/17 20:00 Room Air 07/27/17 19:42 97.7 87 20 129/69 95 Room Air 97.7 07/27/17 15:38 99.1 83 16 142/78 98 99.1 Intake and Output 07/27/17 07/28/17 19:00 07:00 Intake Total 760 ml 120 ml Output Total 100 ml 650 ml Balance 660 ml -530 ml Intake Oral 760 ml 120 ml Output Urine Total 100 ml 650 ml # Voids 4 # Bowel Movements 1 Objective General Appearance: WD/WN HEENT: normocephalic Respiratory/Chest: chest wall non-tender, lungs clear Cardiovascular: normal peripheral pulses, normal rate Abdomen: normal bowel sounds, soft, non tender Genitourinary: normal external genitalia Extremities: no clubbing 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 Current Medications Medications (Trade) Dose Ordered Sig/Caden Route PRN Reason Start Time Stop Time Status Last Admin Dose Admin Acetaminophen (Tylenol) 650 mg Q4H PRN ORAL fever 07/24/17 12:00 08/23/17 11:59 Al Hydroxide/Mg Hydroxide (Mylanta II) 30 ml Q6H PRN ORAL dyspepsia 07/24/17 12:00 08/23/17 11:59 Dextrose (Dextrose 50%) STAT PRN IV Hypoglycemia 07/24/17 12:00 08/23/17 11:59 Dextrose (Dextrose 50%) STAT PRN IV Hypoglycemia 07/24/17 12:00 08/23/17 11:59 Heparin Sodium (Porcine) (Heparin 5000 units/ml) 5,000 units EVERY 12 HOURS SUBQ 07/24/17 21:00 08/23/17 20:59 07/28/17 08:25 Insulin Aspart (NovoLOG) BEFORE MEALS AND HS SUBQ 07/23/17 21:00 08/21/17 06:29 07/28/17 11:43 Lorazepam (Ativan 2mg/ml 1ml) 0.5 mg Q4H PRN IV For Anxiety 07/23/17 22:45 07/28/17 22:44 Ondansetron HCl (Zofran) 4 mg Q6H PRN IVP Nausea & Vomiting 07/23/17 22:45 08/20/17 22:44 Pantoprazole (Protonix) 40 mg DAILY ORAL 07/25/17 09:00 08/24/17 08:59 07/28/17 08:20 Polyethylene Glycol (Miralax) 17 gm HSPRN PRN ORAL Constipation 07/23/17 22:45 08/20/17 22:44 Sitagliptin Phosphate (Januvia) 50 mg ACBREAKFAST ORAL 07/25/17 06:30 08/24/17 06:29 07/28/17 05:55 Vancomycin HCl (Vancomycin) 125 mg FOUR TIMES A DAY ORAL 07/23/17 21:00 08/02/17 18:01 07/28/17 13:25 Zolpidem Tartrate (Ambien) 5 mg HSPRN PRN ORAL Insomnia 07/23/17 22:45 07/28/17 22:44 Kyra Massey MD July 28, 2017 15:22
[2017-07-28 16:00] VITALS: BP 145/83
--- NOTE | 2017-07-28 18:41 | Infectious Diseases Prog Note ---
Assessment/Plan Assessment/Plan Assessment: Sepsis , SP Severe Cdiff; , no more diarrhea -Cdiff + -CXR: Suggestion of mild basal atelectasis. Correlate clinically -u/a wbc 2/4, nit +, leuk +2; ucx NTD Bcx NTD Leukocytosis, SP -afebrile MENG, improving Recent Right foot cellulitis and right big toe. osteo , s/p Rx -MRI R foot: Findings suspicious for osteomyelitis of the distal aspect of the first distal phalanx -wound cx E.fecalis ([place] S), CoNS (likely represents colonizers) -RP : 2.4 => 07/02 : 0.4 -06/28 ESR : 74 => 07/02 : 31 Recent Coffee ground Emesis 2ry to diffuse gastitis -s/p EGD 07/08: Diffuse gastritis, status post biopsy, otherwise normal upper endoscopic examination. Diabetes. Hyperlipidemia. Hypertension. Left BKA. History of alcohol abuse and smoking until recently. chronic thrombosis of superficial femoral vein. Plan: -Continue to PO Vancomycin 125mg qid abx d# 8 for Cdiff. ( shorten AB Rx to 10 d , in view of rapid response ) -07/22 SP PO Flagyl #2 -07/21 SP IV Vanco and Unasyn x1 - 07/01 SP IV vancomycin and Ceftriaxone and Flagyl ( abx d# 42 ) -05/24 SP Cefepime #4 -Monitor CBC/BMP, temperatures -contact precautions -wound care/prevention per hospital protocol Subjective Constitutional: Denies: no symptoms, fever, chills, fatigue, anorexia, drenching sweats, other Allergies: Coded Allergies: No Known Allergies (Unverified , 11/16/14) Subjective no diarrhea today Objective Vital Signs Last 24 Hour Vital Signs Date Time Temp Pulse Resp B/P (MAP) Pulse Ox O2 Delivery O2 Flow Rate FiO2 07/28/17 16:00 98.1 70 18 145/83 97 Room Air 98.1 07/28/17 08:00 97.0 80 18 130/75 97 Room Air 97.0 07/28/17 04:08 97.7 78 20 129/65 96 Room Air 97.7 07/28/17 04:00 Room Air 07/28/17 00:00 Room Air 07/27/17 23:52 98.2 87 20 144/74 97 Room Air 98.2 07/27/17 20:00 Room Air 07/27/17 19:42 97.7 87 20 129/69 95 Room Air 97.7 Height (Feet): 5 Height (Inches): 5.00 Weight (Pounds): 127 HEENT: anicteric Respiratory/Chest: no accessory muscle use Cardiovascular: regularly irregular Abdomen: soft, non tender Current Medications Medications (Trade) Dose Ordered Sig/Caden Route PRN Reason Start Time Stop Time Status Last Admin Dose Admin Acetaminophen (Tylenol) 650 mg Q4H PRN ORAL fever 07/24/17 12:00 08/23/17 11:59 Al Hydroxide/Mg Hydroxide (Mylanta II) 30 ml Q6H PRN ORAL dyspepsia 07/24/17 12:00 08/23/17 11:59 Dextrose (Dextrose 50%) STAT PRN IV Hypoglycemia 07/24/17 12:00 08/23/17 11:59 Dextrose (Dextrose 50%) STAT PRN IV Hypoglycemia 07/24/17 12:00 08/23/17 11:59 Heparin Sodium (Porcine) (Heparin 5000 units/ml) 5,000 units EVERY 12 HOURS SUBQ 07/24/17 21:00 08/23/17 20:59 07/28/17 08:25 Insulin Aspart (NovoLOG) BEFORE MEALS AND HS SUBQ 07/23/17 21:00 08/21/17 06:29 07/28/17 17:01 Lorazepam (Ativan 2mg/ml 1ml) 0.5 mg Q4H PRN IV For Anxiety 07/23/17 22:45 07/28/17 22:44 Ondansetron HCl (Zofran) 4 mg Q6H PRN IVP Nausea & Vomiting 07/23/17 22:45 08/20/17 22:44 Pantoprazole (Protonix) 40 mg DAILY ORAL 07/25/17 09:00 08/24/17 08:59 07/28/17 08:20 Polyethylene Glycol (Miralax) 17 gm HSPRN PRN ORAL Constipation 07/23/17 22:45 08/20/17 22:44 Sitagliptin Phosphate (Januvia) 50 mg ACBREAKFAST ORAL 07/25/17 06:30 08/24/17 06:29 07/28/17 05:55 Vancomycin HCl (Vancomycin) 125 mg FOUR TIMES A DAY ORAL 07/23/17 21:00 08/02/17 18:01 07/28/17 17:40 Zolpidem Tartrate (Ambien) 5 mg HSPRN PRN ORAL Insomnia 07/23/17 22:45 07/28/17 22:44 Yruiy Kelsey MD July 28, 2017 18:41
[2017-07-28 20:00] VITALS: BP 157/82
--- NOTE | 2017-07-28 23:10 | Internal Med Progress Note ---
Subjective Physician Name Tello Fay Attending Physician Tello Fay MD Current Medications Medications (Trade) Dose Ordered Sig/Caden Route PRN Reason Start Time Stop Time Status Last Admin Dose Admin Acetaminophen (Tylenol) 650 mg Q4H PRN ORAL fever 07/24/17 12:00 08/23/17 11:59 Al Hydroxide/Mg Hydroxide (Mylanta II) 30 ml Q6H PRN ORAL dyspepsia 07/24/17 12:00 08/23/17 11:59 Dextrose (Dextrose 50%) STAT PRN IV Hypoglycemia 07/24/17 12:00 08/23/17 11:59 Dextrose (Dextrose 50%) STAT PRN IV Hypoglycemia 07/24/17 12:00 08/23/17 11:59 Heparin Sodium (Porcine) (Heparin 5000 units/ml) 5,000 units EVERY 12 HOURS SUBQ 07/24/17 21:00 08/23/17 20:59 07/28/17 20:41 Insulin Aspart (NovoLOG) BEFORE MEALS AND HS SUBQ 07/23/17 21:00 08/21/17 06:29 07/28/17 20:41 Ondansetron HCl (Zofran) 4 mg Q6H PRN IVP Nausea & Vomiting 07/23/17 22:45 08/20/17 22:44 Pantoprazole (Protonix) 40 mg DAILY ORAL 07/25/17 09:00 08/24/17 08:59 07/28/17 08:20 Polyethylene Glycol (Miralax) 17 gm HSPRN PRN ORAL Constipation 07/23/17 22:45 08/20/17 22:44 Sitagliptin Phosphate (Januvia) 50 mg ACBREAKFAST ORAL 07/25/17 06:30 08/24/17 06:29 07/28/17 05:55 Vancomycin HCl (Vancomycin) 125 mg FOUR TIMES A DAY ORAL 07/23/17 21:00 08/02/17 18:01 07/28/17 20:42 Allergies: Coded Allergies: No Known Allergies (Unverified , 11/16/14) Subjective awake, alert, responsive, NAD, no more diarrhea Objective Last Vital Signs Date Time Temp Pulse Resp B/P (MAP) Pulse Ox O2 Delivery O2 Flow Rate FiO2 07/28/17 20:00 97.5 70 18 157/82 100 97.5 07/28/17 16:00 Room Air Intake and Output 07/27/17 07/28/17 19:00 07:00 Intake Total 760 ml 120 ml Output Total 100 ml 650 ml Balance 660 ml -530 ml Intake Oral 760 ml 120 ml Output Urine Total 100 ml 650 ml # Voids 4 # Bowel Movements 1 Objective General: No acute distress, awake and alert HEENT: NCAT, sclera anicteric, PERRL, EOMI. Neck: Supple, no significant jugular venous distention, Lungs: Good inspiratory effort, clear to auscultation bilaterally, no Wheeze or Rales. Heart: Regular rate and rhythm, normal S1/S2, no murmurs Abdomen: soft, nontender, nondistended. Normoactive bowel sounds. Extremities: No Cyanosis , clubbing or edema. Left BKA Neuro: A&O x 3, Able to move all extremities Assessment/Plan Assessment/Plan Sepsis , SP Severe C. diff colitis , no more diarrhea MENG, improving History of recent Right foot cellulitis and right big toe. osteo , s/p Rx Recent Coffee ground Emesis 2ry to diffuse gastritis -s/p EGD 07/08: Diffuse gastritis, status post biopsy, otherwise normal upper endoscopic examination. Diabetes type 2. Hyperlipidemia. Hypertension. Left BKA. History of alcohol abuse and smoking until recently. chronic thrombosis of superficial femoral vein. Plan: Discharge planning to SNF. -Abx: PO Vancomycin 125mg qid abx d# 8 /10 -Monitor Labs and cultures/ -contact precautions -wound care/prevention per hospital protocol Tello Fay MD July 28, 2017 23:10
[2017-07-29 03:43] VITALS: BP 149/81
[2017-07-29] MEDS: sitaGLIPtin 50mg tab ORAL SCH (05:33)
[2017-07-29] MEDS: NovoLOG Insulin Flexpen SUBQ SCH ×4 (05:36→20:47)
[2017-07-29 08:00] VITALS: BP 108/62
[2017-07-29] MEDS: Vancomycin oral 125mg/2.5ml ORAL SCH ×4 (08:45→20:53)
[2017-07-29] MEDS: Heparin 5000 units/ml inj SUBQ SCH ×2 (08:46→20:48)
[2017-07-29 12:00] VITALS: BP 153/87
--- NOTE | 2017-07-29 12:45 | Diagnostic Imaging Report ---
APPROVED REPORT CPT Code: 22060 Symptoms Comments: Pain Comments Decreased circulation, slow cap refill RIGHT LEG: Common femoral artery waveform analysis is within normal limits at rest. Color flow duplex sonography reveals calcification throughout the superficial femoral artery. A mild (30-40%) stenosis is seen in the proximal popliteal artery. There is no evidence of occlusion within these segments. The tibioperoneal trunk was not well visualized. The distal posterior tibial, anterior tibial and dorsalis pedis arteries are also mildly calcified. Doppler tibial artery waveform analysis is compatible with mild to moderate ischemia at rest.
--- NOTE | 2017-07-29 13:47 | Infectious Diseases Prog Note ---
Assessment/Plan Assessment/Plan Assessment: Sepsis , SP Severe Cdiff; , no more diarrhea -Cdiff + -CXR: Suggestion of mild basal atelectasis. Correlate clinically -u/a wbc 2/4, nit +, leuk +2; ucx NTD Bcx NTD Leukocytosis, SP -afebrile MENG, improving Recent Right foot cellulitis and right big toe. osteo , s/p Rx -MRI R foot: Findings suspicious for osteomyelitis of the distal aspect of the first distal phalanx -wound cx E.fecalis ([place] S), CoNS (likely represents colonizers) -RP : 2.4 => 07/02 : 0.4 -06/28 ESR : 74 => 07/02 : 31 Recent Coffee ground Emesis 2ry to diffuse gastitis -s/p EGD 07/08: Diffuse gastritis, status post biopsy, otherwise normal upper endoscopic examination. Diabetes. Hyperlipidemia. Hypertension. Left BKA. History of alcohol abuse and smoking until recently. chronic thrombosis of superficial femoral vein. Plan: -Continue to PO Vancomycin 125mg qid abx d# for C Diff. ( shorten AB Rx to 10 d , in view of rapid response ) -07/22 SP PO Flagyl #2 -07/21 SP IV Vanco and Unasyn x1 - 07/01 SP IV vancomycin and Ceftriaxone and Flagyl ( abx d# ) -05/24 SP Cefepime #4 -Monitor CBC/BMP, temperatures -contact precautions -wound care/prevention per hospital protocol Subjective Allergies: Coded Allergies: No Known Allergies (Unverified , 11/16/14) Subjective no diarrhea today Objective Vital Signs Last 24 Hour Vital Signs Date Time Temp Pulse Resp B/P (MAP) Pulse Ox O2 Delivery O2 Flow Rate FiO2 07/29/17 12:00 99.1 73 19 153/87 97 99.1 07/29/17 08:00 98.2 76 19 108/62 95 98.2 07/29/17 04:00 Room Air 07/29/17 03:43 98.4 70 18 149/81 96 98.4 07/29/17 00:00 Room Air 07/28/17 20:00 Room Air 07/28/17 20:00 97.5 70 18 157/82 100 97.5 07/28/17 16:00 98.1 70 18 145/83 97 Room Air 98.1 Height (Feet): 5 Height (Inches): 5.00 Weight (Pounds): 127 HEENT: atraumatic Respiratory/Chest: no respiratory distress Cardiovascular: regularly irregular Abdomen: no organomegaly Current Medications Medications (Trade) Dose Ordered Sig/Caden Route PRN Reason Start Time Stop Time Status Last Admin Dose Admin Acetaminophen (Tylenol) 650 mg Q4H PRN ORAL fever 07/24/17 12:00 08/23/17 11:59 Al Hydroxide/Mg Hydroxide (Mylanta II) 30 ml Q6H PRN ORAL dyspepsia 07/24/17 12:00 08/23/17 11:59 Dextrose (Dextrose 50%) STAT PRN IV Hypoglycemia 07/24/17 12:00 08/23/17 11:59 Dextrose (Dextrose 50%) STAT PRN IV Hypoglycemia 07/24/17 12:00 08/23/17 11:59 Heparin Sodium (Porcine) (Heparin 5000 units/ml) 5,000 units EVERY 12 HOURS SUBQ 07/24/17 21:00 08/23/17 20:59 07/29/17 08:46 Insulin Aspart (NovoLOG) BEFORE MEALS AND HS SUBQ 07/23/17 21:00 08/21/17 06:29 07/29/17 12:00 Ondansetron HCl (Zofran) 4 mg Q6H PRN IVP Nausea & Vomiting 07/23/17 22:45 08/20/17 22:44 Pantoprazole (Protonix) 40 mg DAILY ORAL 07/25/17 09:00 08/24/17 08:59 07/29/17 08:45 Polyethylene Glycol (Miralax) 17 gm HSPRN PRN ORAL Constipation 07/23/17 22:45 08/20/17 22:44 Sitagliptin Phosphate (Januvia) 50 mg ACBREAKFAST ORAL 07/25/17 06:30 08/24/17 06:29 07/29/17 05:33 Vancomycin HCl (Vancomycin) 125 mg FOUR TIMES A DAY ORAL 07/23/17 21:00 08/02/17 18:01 07/29/17 13:21 Yuriy Kelsey MD July 29, 2017 13:47
[2017-07-29 16:00] VITALS: BP 143/87
[2017-07-29 20:00] VITALS: BP 142/80
--- NOTE | 2017-07-29 22:43 | Internal Med Progress Note ---
Subjective Physician Name Tello Fay Attending Physician Tello Fay MD Current Medications Medications (Trade) Dose Ordered Sig/Caden Route PRN Reason Start Time Stop Time Status Last Admin Dose Admin Acetaminophen (Tylenol) 650 mg Q4H PRN ORAL fever 07/24/17 12:00 08/23/17 11:59 Al Hydroxide/Mg Hydroxide (Mylanta II) 30 ml Q6H PRN ORAL dyspepsia 07/24/17 12:00 08/23/17 11:59 Dextrose (Dextrose 50%) STAT PRN IV Hypoglycemia 07/24/17 12:00 08/23/17 11:59 Dextrose (Dextrose 50%) STAT PRN IV Hypoglycemia 07/24/17 12:00 08/23/17 11:59 Heparin Sodium (Porcine) (Heparin 5000 units/ml) 5,000 units EVERY 12 HOURS SUBQ 07/24/17 21:00 08/23/17 20:59 07/29/17 20:48 Insulin Aspart (NovoLOG) BEFORE MEALS AND HS SUBQ 07/23/17 21:00 08/21/17 06:29 07/29/17 20:47 Ondansetron HCl (Zofran) 4 mg Q6H PRN IVP Nausea & Vomiting 07/23/17 22:45 08/20/17 22:44 Pantoprazole (Protonix) 40 mg DAILY ORAL 07/25/17 09:00 08/24/17 08:59 07/29/17 08:45 Polyethylene Glycol (Miralax) 17 gm HSPRN PRN ORAL Constipation 07/23/17 22:45 08/20/17 22:44 Sitagliptin Phosphate (Januvia) 50 mg ACBREAKFAST ORAL 07/25/17 06:30 08/24/17 06:29 07/29/17 05:33 Vancomycin HCl (Vancomycin) 125 mg FOUR TIMES A DAY ORAL 07/23/17 21:00 08/02/17 18:01 07/29/17 20:53 Allergies: Coded Allergies: No Known Allergies (Unverified , 11/16/14) Subjective awake, alert, responsive, NAD, no more diarrhea Objective Last Vital Signs Date Time Temp Pulse Resp B/P (MAP) Pulse Ox O2 Delivery O2 Flow Rate FiO2 07/29/17 20:00 98.1 70 18 142/80 96 98.1 07/29/17 04:00 Room Air Intake and Output 07/28/17 07/29/17 19:00 07:00 Intake Total 360 ml 480 ml Output Total 750 ml 1000 ml Balance -390 ml -520 ml Intake Oral 360 ml 480 ml Output Urine Total 750 ml 1000 ml # Bowel Movements 5 Objective General: No acute distress, awake and alert HEENT: NCAT, sclera anicteric, PERRL, EOMI. Neck: Supple, no significant jugular venous distention, Lungs: Good inspiratory effort, clear to auscultation bilaterally, no Wheeze or Rales. Heart: Regular rate and rhythm, normal S1/S2, no murmurs Abdomen: soft, nontender, nondistended. Normoactive bowel sounds. Extremities: No Cyanosis , clubbing or edema. Left BKA Neuro: A&O x 3, Able to move all extremities Assessment/Plan Assessment/Plan Sepsis , SP Severe C. diff colitis , no more diarrhea MENG, improving History of recent Right foot cellulitis and right big toe. osteo , s/p Rx Recent Coffee ground Emesis 2ry to diffuse gastritis -s/p EGD 07/08: Diffuse gastritis, status post biopsy, otherwise normal upper endoscopic examination. Diabetes type 2. Hyperlipidemia. Hypertension. Left BKA. History of alcohol abuse and smoking until recently. chronic thrombosis of superficial femoral vein. Plan: Discharge planning to SNF in AM. -Abx: PO Vancomycin 125mg qid abx d# 9 /10 -Monitor Labs and cultures/ -contact precautions -wound care/prevention per hospital protocol Tello Fay MD July 29, 2017 22:43
[2017-07-30] VITALS: BP 146/81
[2017-07-30 04:00] VITALS: BP 139/78
[2017-07-30] MEDS: sitaGLIPtin 50mg tab ORAL SCH (05:58)
[2017-07-30] MEDS: NovoLOG Insulin Flexpen SUBQ SCH ×4 (06:04→20:35)
[2017-07-30 08:00] VITALS: BP 141/76
[2017-07-30] MEDS: Heparin 5000 units/ml inj SUBQ SCH ×2 (09:24→20:36)
[2017-07-30] MEDS: Vancomycin oral 125mg/2.5ml ORAL SCH (09:24)
--- NOTE | 2017-07-30 10:08 | Infectious Diseases Prog Note ---
Assessment/Plan Assessment/Plan Assessment: Sepsis , SP Severe Cdiff; , resolved -Cdiff + -CXR: Suggestion of mild basal atelectasis. Correlate clinically -u/a wbc 2/4, nit +, leuk +2; ucx NTD Bcx NTD Leukocytosis, SP -afebrile MENG, improving Recent Right foot cellulitis and right big toe. osteo , s/p Rx -MRI R foot: Findings suspicious for osteomyelitis of the distal aspect of the first distal phalanx -wound cx E.fecalis ([place] S), CoNS (likely represents colonizers) -RP : 2.4 => 07/02 : 0.4 -06/28 ESR : 74 => 07/02 : 31 Recent Coffee ground Emesis 2ry to diffuse gastitis -s/p EGD 07/08: Diffuse gastritis, status post biopsy, otherwise normal upper endoscopic examination. Diabetes. Hyperlipidemia. Hypertension. Left BKA. History of alcohol abuse and smoking until recently. chronic thrombosis of superficial femoral vein. Plan: - DC PO Vancomycin 125mg qid abx d# for C Diff. ( shorten AB Rx to 10 d , in view of rapid response ) -07/22 SP PO Flagyl #2 -07/21 SP IV Vanco and Unasyn x1 - 07/01 SP IV vancomycin and Ceftriaxone and Flagyl ( abx d# 42 ) -05/24 SP Cefepime #4 -Monitor CBC/BMP, temperatures -contact precautions -wound care/prevention per hospital protocol Subjective Allergies: Coded Allergies: No Known Allergies (Unverified , 11/16/14) Subjective no diarrhea today Objective Vital Signs Last 24 Hour Vital Signs Date Time Temp Pulse Resp B/P (MAP) Pulse Ox O2 Delivery O2 Flow Rate FiO2 07/30/17 08:00 98.4 90 18 141/76 95 98.4 07/30/17 04:00 Room Air 07/30/17 04:00 98.0 68 18 139/78 95 98.0 07/30/17 00:00 Room Air 07/30/17 00:00 98.2 69 18 146/81 96 98.2 07/29/17 20:00 Room Air 07/29/17 20:00 98.1 70 18 142/80 96 98.1 07/29/17 16:00 98.8 73 19 143/87 97 98.8 07/29/17 12:00 99.1 73 19 153/87 97 99.1 Height (Feet): 5 Height (Inches): 5.00 Weight (Pounds): 127 Current Medications Medications (Trade) Dose Ordered Sig/Caden Route PRN Reason Start Time Stop Time Status Last Admin Dose Admin Acetaminophen (Tylenol) 650 mg Q4H PRN ORAL fever 07/24/17 12:00 08/23/17 11:59 Al Hydroxide/Mg Hydroxide (Mylanta II) 30 ml Q6H PRN ORAL dyspepsia 07/24/17 12:00 08/23/17 11:59 Dextrose (Dextrose 50%) STAT PRN IV Hypoglycemia 07/24/17 12:00 08/23/17 11:59 Dextrose (Dextrose 50%) STAT PRN IV Hypoglycemia 07/24/17 12:00 08/23/17 11:59 Heparin Sodium (Porcine) (Heparin 5000 units/ml) 5,000 units EVERY 12 HOURS SUBQ 07/24/17 21:00 08/23/17 20:59 07/30/17 09:24 Insulin Aspart (NovoLOG) BEFORE MEALS AND HS SUBQ 07/23/17 21:00 08/21/17 06:29 07/30/17 06:04 Ondansetron HCl (Zofran) 4 mg Q6H PRN IVP Nausea & Vomiting 07/23/17 22:45 08/20/17 22:44 Pantoprazole (Protonix) 40 mg DAILY ORAL 07/25/17 09:00 08/24/17 08:59 07/30/17 09:22 Polyethylene Glycol (Miralax) 17 gm HSPRN PRN ORAL Constipation 07/23/17 22:45 08/20/17 22:44 Sitagliptin Phosphate (Januvia) 50 mg ACBREAKFAST ORAL 07/25/17 06:30 08/24/17 06:29 07/30/17 05:58 Vancomycin HCl (Vancomycin) 125 mg FOUR TIMES A DAY ORAL 07/23/17 21:00 08/02/17 18:01 07/30/17 09:24 Yuriy Kelsey MD July 30, 2017 10:08
[2017-07-30 12:00] VITALS: BP 141/78
[2017-07-30] MEDS ORDERED: Tubing IV Secondary IV ONE (15:17)
--- NOTE | 2017-07-30 15:35 | Pulmonology Progress Note ---
Assessment/Plan Problems: (1) Cellulitis of right lower extremity (2) Tachycardia (3) Sepsis Assessment/Plan VRE positiive med/surg wbc lower iv abx check electrolytes all reviewed Subjective ROS Limited/Unobtainable: No Interval Events: late note for 07/29 Allergies: Coded Allergies: No Known Allergies (Unverified , 11/16/14) Objective Last 24 Hour Vital Signs Date Time Temp Pulse Resp B/P (MAP) Pulse Ox O2 Delivery O2 Flow Rate FiO2 07/30/17 12:00 98.1 73 18 141/78 97 98.1 07/30/17 08:00 98.4 90 18 141/76 95 98.4 07/30/17 04:00 Room Air 07/30/17 04:00 98.0 68 18 139/78 95 98.0 07/30/17 00:00 Room Air 07/30/17 00:00 98.2 69 18 146/81 96 98.2 07/29/17 20:00 Room Air 07/29/17 20:00 98.1 70 18 142/80 96 98.1 07/29/17 16:00 98.8 73 19 143/87 97 98.8 Intake and Output 07/29/17 07/30/17 19:00 07:00 Intake Total 620 ml 440 ml Output Total 600 ml 1100 ml Balance 20 ml -660 ml Intake Oral 620 ml 440 ml Output Urine Total 600 ml 1100 ml Objective General Appearance: WD/WN HEENT: normocephalic Respiratory/Chest: chest wall non-tender, lungs clear Cardiovascular: normal peripheral pulses, normal rate Abdomen: normal bowel sounds, soft, non tender Genitourinary: normal external genitalia Extremities: no clubbing Neurologic/Psychiatric: tender coordinator II-XII grossly normal Current Medications Medications (Trade) Dose Ordered Sig/Caden Route PRN Reason Start Time Stop Time Status Last Admin Dose Admin Acetaminophen (Tylenol) 650 mg Q4H PRN ORAL fever 07/24/17 12:00 08/23/17 11:59 Al Hydroxide/Mg Hydroxide (Mylanta II) 30 ml Q6H PRN ORAL dyspepsia 07/24/17 12:00 08/23/17 11:59 Dextrose (Dextrose 50%) STAT PRN IV Hypoglycemia 07/24/17 12:00 08/23/17 11:59 Heparin Sodium (Porcine) (Heparin 5000 units/ml) 5,000 units EVERY 12 HOURS SUBQ 07/24/17 21:00 08/23/17 20:59 07/30/17 09:24 Insulin Aspart (NovoLOG) BEFORE MEALS AND HS SUBQ 07/23/17 21:00 08/21/17 06:29 07/30/17 11:41 Ondansetron HCl (Zofran) 4 mg Q6H PRN IVP Nausea & Vomiting 07/23/17 22:45 08/20/17 22:44 Pantoprazole (Protonix) 40 mg DAILY ORAL 07/25/17 09:00 08/24/17 08:59 07/30/17 09:22 Polyethylene Glycol (Miralax) 17 gm HSPRN PRN ORAL Constipation 07/23/17 22:45 08/20/17 22:44 Sitagliptin Phosphate (Januvia) 50 mg ACBREAKFAST ORAL 07/25/17 06:30 08/24/17 06:29 07/30/17 05:58 Kyra Massey MD July 30, 2017 15:35
[2017-07-30 15:48] VITALS: BP 136/80
[2017-07-30 20:00] VITALS: BP 136/76
--- NOTE | 2017-07-30 23:07 | Internal Med Progress Note ---
Subjective Physician Name Tello Fay Attending Physician Tello Fay MD Current Medications Medications (Trade) Dose Ordered Sig/Caden Route PRN Reason Start Time Stop Time Status Last Admin Dose Admin Acetaminophen (Tylenol) 650 mg Q4H PRN ORAL fever 07/24/17 12:00 08/23/17 11:59 Al Hydroxide/Mg Hydroxide (Mylanta II) 30 ml Q6H PRN ORAL dyspepsia 07/24/17 12:00 08/23/17 11:59 Dextrose (Dextrose 50%) STAT PRN IV Hypoglycemia 07/24/17 12:00 08/23/17 11:59 Heparin Sodium (Porcine) (Heparin 5000 units/ml) 5,000 units EVERY 12 HOURS SUBQ 07/24/17 21:00 08/23/17 20:59 07/30/17 20:36 Insulin Aspart (NovoLOG) BEFORE MEALS AND HS SUBQ 07/23/17 21:00 08/21/17 06:29 07/30/17 20:35 Ondansetron HCl (Zofran) 4 mg Q6H PRN IVP Nausea & Vomiting 07/23/17 22:45 08/20/17 22:44 Pantoprazole (Protonix) 40 mg DAILY ORAL 07/25/17 09:00 08/24/17 08:59 07/30/17 09:22 Polyethylene Glycol (Miralax) 17 gm HSPRN PRN ORAL Constipation 07/23/17 22:45 08/20/17 22:44 Sitagliptin Phosphate (Januvia) 50 mg ACBREAKFAST ORAL 07/25/17 06:30 08/24/17 06:29 07/30/17 05:58 Allergies: Coded Allergies: No Known Allergies (Unverified , 11/16/14) Subjective awake, alert, responsive, NAD. Objective Last Vital Signs Date Time Temp Pulse Resp B/P (MAP) Pulse Ox O2 Delivery O2 Flow Rate FiO2 07/30/17 20:00 99.9 78 16 136/76 96 Room Air 99.9 Intake and Output 07/29/17 07/30/17 19:00 07:00 Intake Total 620 ml 440 ml Output Total 600 ml 1100 ml Balance 20 ml -660 ml Intake Oral 620 ml 440 ml Output Urine Total 600 ml 1100 ml Objective General: No acute distress, awake and alert HEENT: NCAT, sclera anicteric, PERRL, EOMI. Neck: Supple, no significant jugular venous distention, Lungs: Good inspiratory effort, clear to auscultation bilaterally, no Wheeze or Rales. Heart: Regular rate and rhythm, normal S1/S2, no murmurs Abdomen: soft, nontender, nondistended. Normoactive bowel sounds. Extremities: No Cyanosis , clubbing or edema. Left BKA Neuro: A&O x 3, Able to move all extremities Assessment/Plan Assessment/Plan Sepsis , SP Severe C. diff colitis , no more diarrhea MENG, improving History of recent Right foot cellulitis and right big toe. osteo , s/p Rx Recent Coffee ground Emesis 2ry to diffuse gastritis -s/p EGD 07/08: Diffuse gastritis, status post biopsy, otherwise normal upper endoscopic examination. Diabetes type 2. Hyperlipidemia. Hypertension. Left BKA. History of alcohol abuse and smoking until recently. chronic thrombosis of superficial femoral vein. Plan: -Abx: PO Vancomycin 125mg qid abx d# 10 , DC today. -Monitor Labs and cultures/ -contact precautions -wound care/prevention per hospital protocol Discharge planning for SNF. Tello Fay MD July 30, 2017 23:07
[2017-07-31 00:03] VITALS: BP 118/69
[2017-07-31 03:46] VITALS: BP 139/79
[2017-07-31] MEDS: sitaGLIPtin 50mg tab ORAL SCH (05:44)
[2017-07-31] MEDS: NovoLOG Insulin Flexpen SUBQ SCH ×4 (05:45→21:13)
[2017-07-31 08:00] VITALS: BP 145/81
[2017-07-31] MEDS: Heparin 5000 units/ml inj SUBQ SCH ×2 (08:56→21:09)
--- NOTE | 2017-07-31 11:57 | Infectious Diseases Prog Note ---
Assessment/Plan Assessment/Plan Assessment: Sepsis , SP Severe Cdiff; , resolved -Cdiff + -CXR: Suggestion of mild basal atelectasis. Correlate clinically -u/a wbc 2/4, nit +, leuk +2; ucx NTD Bcx NTD Leukocytosis, SP -afebrile MENG, improving Recent Right foot cellulitis and right big toe. osteo , s/p Rx -MRI R foot: Findings suspicious for osteomyelitis of the distal aspect of the first distal phalanx -wound cx E.fecalis ([place] S), CoNS (likely represents colonizers) -RP : 2.4 => 07/02 : 0.4 -06/28 ESR : 74 => 07/02 : 31 Recent Coffee ground Emesis 2ry to diffuse gastitis -s/p EGD 07/08: Diffuse gastritis, status post biopsy, otherwise normal upper endoscopic examination. Diabetes. Hyperlipidemia. Hypertension. Left BKA. History of alcohol abuse and smoking until recently. chronic thrombosis of superficial femoral vein. Plan: - Monitor pt off of AB Rx - 07/31 PO Vancomycin 125mg qid abx d# 10 for C Diff. ( shorten AB Rx to 10 d , in view of rapid response ) - 07/22 SP PO Flagyl #2 - 07/21 SP IV Vanco and Unasyn x1 - 07/01 SP IV vancomycin and Ceftriaxone and Flagyl ( ABx d# 42/42 ) - 05/24 SP Cefepime #4 -Monitor CBC/BMP, temperatures -contact precautions -wound care/prevention per hospital protocol Subjective Allergies: Coded Allergies: No Known Allergies (Unverified , 11/16/14) Subjective no diarrhea today Objective Vital Signs Last 24 Hour Vital Signs Date Time Temp Pulse Resp B/P (MAP) Pulse Ox O2 Delivery O2 Flow Rate FiO2 07/31/17 08:00 98.1 73 18 145/81 94 Room Air 98.1 07/31/17 03:46 98.1 75 19 139/79 99 Room Air 98.1 07/31/17 00:03 99.1 79 16 118/69 96 Room Air 99.1 07/30/17 20:00 99.9 78 16 136/76 96 Room Air 99.9 07/30/17 15:48 97.7 72 18 136/80 97 97.7 07/30/17 12:00 98.1 73 18 141/78 97 98.1 Height (Feet): 5 Height (Inches): 5.00 Weight (Pounds): 127 HEENT: anicteric Respiratory/Chest: no respiratory distress Cardiovascular: regular rhythm Abdomen: soft, non tender Current Medications Medications (Trade) Dose Ordered Sig/Caden Route PRN Reason Start Time Stop Time Status Last Admin Dose Admin Acetaminophen (Tylenol) 650 mg Q4H PRN ORAL fever 07/24/17 12:00 08/23/17 11:59 Al Hydroxide/Mg Hydroxide (Mylanta II) 30 ml Q6H PRN ORAL dyspepsia 07/24/17 12:00 08/23/17 11:59 Dextrose (Dextrose 50%) STAT PRN IV Hypoglycemia 07/24/17 12:00 08/23/17 11:59 Heparin Sodium (Porcine) (Heparin 5000 units/ml) 5,000 units EVERY 12 HOURS SUBQ 07/24/17 21:00 08/23/17 20:59 07/31/17 08:56 Insulin Aspart (NovoLOG) BEFORE MEALS AND HS SUBQ 07/23/17 21:00 08/21/17 06:29 07/31/17 11:37 Ondansetron HCl (Zofran) 4 mg Q6H PRN IVP Nausea & Vomiting 07/23/17 22:45 08/20/17 22:44 Pantoprazole (Protonix) 40 mg DAILY ORAL 07/25/17 09:00 08/24/17 08:59 07/31/17 08:56 Polyethylene Glycol (Miralax) 17 gm HSPRN PRN ORAL Constipation 07/23/17 22:45 08/20/17 22:44 Sitagliptin Phosphate (Januvia) 50 mg ACBREAKFAST ORAL 07/25/17 06:30 08/24/17 06:29 07/31/17 05:44 Yuriy Kelsey MD July 31, 2017 11:56
[2017-07-31 12:00] VITALS: BP 122/75
--- NOTE | 2017-07-31 14:22 | Internal Med Progress Note ---
Subjective Date of Service: July 31, 2017 Physician Name Daniel Tafoya Attending Physician Tello Fay MD Current Medications Medications (Trade) Dose Ordered Sig/Caden Route PRN Reason Start Time Stop Time Status Last Admin Dose Admin Acetaminophen (Tylenol) 650 mg Q4H PRN ORAL fever 07/24/17 12:00 08/23/17 11:59 Al Hydroxide/Mg Hydroxide (Mylanta II) 30 ml Q6H PRN ORAL dyspepsia 07/24/17 12:00 08/23/17 11:59 Dextrose (Dextrose 50%) STAT PRN IV Hypoglycemia 07/24/17 12:00 08/23/17 11:59 Heparin Sodium (Porcine) (Heparin 5000 units/ml) 5,000 units EVERY 12 HOURS SUBQ 07/24/17 21:00 08/23/17 20:59 07/31/17 08:56 Insulin Aspart (NovoLOG) BEFORE MEALS AND HS SUBQ 07/23/17 21:00 08/21/17 06:29 07/31/17 11:37 Ondansetron HCl (Zofran) 4 mg Q6H PRN IVP Nausea & Vomiting 07/23/17 22:45 08/20/17 22:44 Pantoprazole (Protonix) 40 mg DAILY ORAL 07/25/17 09:00 08/24/17 08:59 07/31/17 08:56 Polyethylene Glycol (Miralax) 17 gm HSPRN PRN ORAL Constipation 07/23/17 22:45 08/20/17 22:44 Sitagliptin Phosphate (Januvia) 50 mg ACBREAKFAST ORAL 07/25/17 06:30 08/24/17 06:29 07/31/17 05:44 Allergies: Coded Allergies: No Known Allergies (Unverified , 11/16/14) ROS Limited/Unobtainable: No Constitutional: Reports: no symptoms HEENT: Reports: no symptoms Cardiovascular: Reports: no symptoms Respiratory: Reports: no symptoms Gastrointestinal/Abdominal: Reports: no symptoms Genitourinary: Reports: no symptoms Neurologic/Psychiatric: Reports: no symptoms Subjective 66 YO M admitted with C. Diff diarrhea. Cover for Int [facility]-Dr Fay Objective Last Vital Signs Date Time Temp Pulse Resp B/P (MAP) Pulse Ox O2 Delivery O2 Flow Rate FiO2 07/31/17 12:00 97.2 77 18 122/75 98 Room Air 97.2 Intake and Output 07/30/17 07/31/17 19:00 07:00 Intake Total 480 ml 420 ml Output Total 700 ml Balance -220 ml 420 ml Intake Oral 480 ml 420 ml Output Urine Total 700 ml # Voids 3 # Bowel Movements 1 Objective General Appearance: WD/WN, no apparent distress, alert, other - disheveled EENT: PERRL/EOMI, normal ENT inspection, TMs normal Neck: non-tender, normal alignment, supple, normal inspection Cardiovascular: normal peripheral pulses, normal rate, regular rhythm, no gallop/murmur, no JVD Respiratory/Chest: chest wall non-tender, lungs clear, normal breath sounds, no respiratory distress, no accessory muscle use Abdomen: normal bowel sounds, non tender, soft, no organomegaly, no mass Extremities: normal range of motion, non-tender 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 See ID note (2) Clostridium difficile diarrhea Assessment & Plan: S/P oral vanco Day #10/10 per ID (3) Failure to thrive (4) Cellulitis of right lower extremity Assessment & Plan: S/P antibiotic (5) Osteomyelitis Assessment & Plan: Right great toe. S/P antibiotic (6) Hemorrhage of gastrointestinal tract (7) Diabetes mellitus, type II Assessment & Plan: Continue novolog sliding scale. (8) HTN (hypertension) (9) Hypercholesteremia (10) S/P BKA (below knee amputation) unilateral (11) GERD (gastroesophageal reflux disease) (12) Gastritis Assessment/Plan Discharge planning: [facility] when bed available. Daniel Tafoya MD July 31, 2017 14:22
[2017-07-31 16:01] VITALS: BP 145/98
[2017-07-31 19:38] VITALS: BP 142/77
[2017-08-01 00:05] VITALS: BP 112/62
[2017-08-01 04:12] VITALS: BP 144/83
[2017-08-01] MEDS: sitaGLIPtin 50mg tab ORAL SCH (06:59)
[2017-08-01] MEDS: NovoLOG Insulin Flexpen SUBQ SCH ×4 (07:01→21:22)
[2017-08-01] MEDS: Heparin 5000 units/ml inj SUBQ SCH ×2 (07:45→21:20)
[2017-08-01 08:00] VITALS: BP 109/75
--- NOTE | 2017-08-01 13:57 | Internal Med Progress Note ---
Subjective Date of Service: August 01, 2017 Physician Name Daniel Tafoya Attending Physician Tello Fay MD Current Medications Medications (Trade) Dose Ordered Sig/Caden Route PRN Reason Start Time Stop Time Status Last Admin Dose Admin Acetaminophen (Tylenol) 650 mg Q4H PRN ORAL fever 07/24/17 12:00 08/23/17 11:59 Al Hydroxide/Mg Hydroxide (Mylanta II) 30 ml Q6H PRN ORAL dyspepsia 07/24/17 12:00 08/23/17 11:59 Dextrose (Dextrose 50%) STAT PRN IV Hypoglycemia 07/24/17 12:00 08/23/17 11:59 Heparin Sodium (Porcine) (Heparin 5000 units/ml) 5,000 units EVERY 12 HOURS SUBQ 07/24/17 21:00 08/23/17 20:59 08/01/17 07:45 Insulin Aspart (NovoLOG) BEFORE MEALS AND HS SUBQ 07/23/17 21:00 08/21/17 06:29 08/01/17 11:28 Ondansetron HCl (Zofran) 4 mg Q6H PRN IVP Nausea & Vomiting 07/23/17 22:45 08/20/17 22:44 Pantoprazole (Protonix) 40 mg DAILY ORAL 07/25/17 09:00 08/24/17 08:59 08/01/17 07:45 Polyethylene Glycol (Miralax) 17 gm HSPRN PRN ORAL Constipation 07/23/17 22:45 08/20/17 22:44 Sitagliptin Phosphate (Januvia) 50 mg ACBREAKFAST ORAL 07/25/17 06:30 08/24/17 06:29 08/01/17 06:59 Allergies: Coded Allergies: No Known Allergies (Unverified , 11/16/14) ROS Limited/Unobtainable: No Constitutional: Reports: fever HEENT: Reports: no symptoms Cardiovascular: Reports: no symptoms Respiratory: Reports: no symptoms Gastrointestinal/Abdominal: Reports: no symptoms Genitourinary: Reports: no symptoms Neurologic/Psychiatric: Reports: no symptoms Subjective 66 YO M admitted with C. Diff diarrhea. Cover for Int [facility]-Dr Fay. Low grade fever overnight Objective Last Vital Signs Date Time Temp Pulse Resp B/P (MAP) Pulse Ox O2 Delivery O2 Flow Rate FiO2 08/01/17 08:00 100.2 78 20 109/75 96 Nasal Cannula 2.0 100.2 Intake and Output 07/31/17 08/01/17 19:00 07:00 Intake Total 1080 ml 240 ml Output Total 700 ml 250 ml Balance 380 ml -10 ml Intake Oral 1080 ml 240 ml Output Urine Total 700 ml 250 ml # Voids 4 # Bowel Movements 1 Objective General Appearance: WD/WN, no apparent distress, alert, other - disheveled EENT: PERRL/EOMI, normal ENT inspection, TMs normal Neck: non-tender, normal alignment, supple, normal inspection Cardiovascular: normal peripheral pulses, normal rate, regular rhythm, no gallop/murmur, no JVD Respiratory/Chest: chest wall non-tender, lungs clear, normal breath sounds, no respiratory distress, no accessory muscle use Abdomen: normal bowel sounds, non tender, soft, no organomegaly, no mass Extremities: normal range of motion, non-tender 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 See ID note (2) Clostridium difficile diarrhea Assessment & Plan: S/P oral vanco Day #10 per ID (3) Failure to thrive (4) Cellulitis of right lower extremity Assessment & Plan: S/P antibiotic (5) Osteomyelitis Assessment & Plan: Right great toe. S/P antibiotic (6) Hemorrhage of gastrointestinal tract (7) Diabetes mellitus, type II Assessment & Plan: Continue novolog sliding scale. (8) HTN (hypertension) (9) Hypercholesteremia (10) S/P BKA (below knee amputation) unilateral (11) GERD (gastroesophageal reflux disease) (12) Gastritis (13) Fever Assessment & Plan: Low grade-see ID note. Assessment/Plan Discharge planning: [facility] when bed available. Daniel Tafoya MD August 01, 2017 13:57
[2017-08-01 16:00] VITALS: BP 151/86
[2017-08-01 19:39] VITALS: BP 146/85
[2017-08-02] VITALS: BP 130/73
[2017-08-02 04:00] VITALS: BP 143/80
[2017-08-02] MEDS: sitaGLIPtin 50mg tab ORAL SCH (06:23)
[2017-08-02] MEDS: NovoLOG Insulin Flexpen SUBQ SCH ×4 (06:26→20:18)
[2017-08-02 08:00] VITALS: BP 106/57
[2017-08-02 08:29] LABS: BASOPHILS % (AUTO) 0.8 % (0.0-2.0); EOSINOPHILS % (AUTO) 5.9 % (0.0-3.0); HEMOGLOBIN 10.7 G/DL (14.2-18.0); LYMPHOCYTES % (AUTO) 42.5 % (20.0-45.0); MEAN CORPUSCULAR VOLUME 83 FL (80-99); NEUTROPHILS % (AUTO) 44.9 % (45.0-75.0); PLATELET COUNT 210 K/UL (150-450); RED BLOOD COUNT 3.85 M/UL (4.70-6.10); RED CELL DISTRIBUTION WIDTH 12.5 % (11.6-14.8); WHITE BLOOD COUNT 6.4 K/UL (4.8-10.8)
[2017-08-02 08:53] LABS: ANION GAP 8 mmol/L (5-15); BLOOD UREA NITROGEN 13 mg/dL (7-18); CALCIUM 8.7 MG/DL (8.5-10.1); CARBON DIOXIDE 27 MMOL/L (21-32); CHLORIDE 102 MMOL/L (98-107); CREATININE 0.9 MG/DL (0.55-1.30); POTASSIUM 4.5 MMOL/L (3.5-5.1); SODIUM 137 MMOL/L (136-145)
--- NOTE | 2017-08-02 11:52 | Internal Med Progress Note ---
Subjective Date of Service: August 02, 2017 Physician Name Daniel Tafoya Attending Physician Tello Fay MD Current Medications Medications (Trade) Dose Ordered Sig/Caden Route PRN Reason Start Time Stop Time Status Last Admin Dose Admin Acetaminophen (Tylenol) 650 mg Q4H PRN ORAL fever 07/24/17 12:00 08/23/17 11:59 Al Hydroxide/Mg Hydroxide (Mylanta II) 30 ml Q6H PRN ORAL dyspepsia 07/24/17 12:00 08/23/17 11:59 Dextrose (Dextrose 50%) STAT PRN IV Hypoglycemia 07/24/17 12:00 08/23/17 11:59 Heparin Sodium (Porcine) (Heparin 5000 units/ml) 5,000 units EVERY 12 HOURS SUBQ 07/24/17 21:00 08/23/17 20:59 08/01/17 21:20 Insulin Aspart (NovoLOG) BEFORE MEALS AND HS SUBQ 07/23/17 21:00 08/21/17 06:29 08/02/17 06:26 Ondansetron HCl (Zofran) 4 mg Q6H PRN IVP Nausea & Vomiting 07/23/17 22:45 08/20/17 22:44 Pantoprazole (Protonix) 40 mg DAILY ORAL 07/25/17 09:00 08/24/17 08:59 08/01/17 07:45 Polyethylene Glycol (Miralax) 17 gm HSPRN PRN ORAL Constipation 07/23/17 22:45 08/20/17 22:44 Sitagliptin Phosphate (Januvia) 50 mg ACBREAKFAST ORAL 07/25/17 06:30 08/24/17 06:29 08/02/17 06:23 Allergies: Coded Allergies: No Known Allergies (Unverified , 11/16/14) ROS Limited/Unobtainable: No Constitutional: Reports: no symptoms HEENT: Reports: no symptoms Cardiovascular: Reports: no symptoms Respiratory: Reports: no symptoms Gastrointestinal/Abdominal: Reports: no symptoms Genitourinary: Reports: no symptoms Neurologic/Psychiatric: Reports: no symptoms Subjective 66 YO M admitted with C. Diff diarrhea. Cover for Int Med-Dr Fay. Await placement Objective Last Vital Signs Date Time Temp Pulse Resp B/P (MAP) Pulse Ox O2 Delivery O2 Flow Rate FiO2 08/02/17 08:00 97.9 79 19 106/57 100 Room Air 97.9 08/01/17 08:00 2.0 Laboratory Tests Test 08/02/17 06:15 White Blood Count 6.4 K/UL (4.8-10.8) Red Blood Count 3.85 M/UL (4.70-6.10) L Hemoglobin 10.7 G/DL (14.2-18.0) L Hematocrit 32.0 % (42.0-52.0) L Mean Corpuscular Volume 83 FL (80-99) Mean Corpuscular Hemoglobin 27.9 PG (27.0-31.0) Mean Corpuscular Hemoglobin Concent 33.6 G/DL (32.0-36.0) Red Cell Distribution Width 12.5 % (11.6-14.8) Platelet Count 210 K/UL (150-450) Mean Platelet Volume 7.7 FL (6.5-10.1) Neutrophils (%) (Auto) 44.9 % (45.0-75.0) L Lymphocytes (%) (Auto) 42.5 % (20.0-45.0) Monocytes (%) (Auto) 6.0 % (1.0-10.0) Eosinophils (%) (Auto) 5.9 % (0.0-3.0) H Basophils (%) (Auto) 0.8 % (0.0-2.0) Sodium Level 137 MMOL/L (136-145) Potassium Level 4.5 MMOL/L (3.5-5.1) Chloride Level 102 MMOL/L (98-107) Carbon Dioxide Level 27 MMOL/L (21-32) Anion Gap 8 mmol/L (5-15) Blood Urea Nitrogen 13 mg/dL (7-18) Creatinine 0.9 MG/DL (0.55-1.30) Estimat Glomerular Filtration Rate > 60 mL/min (>60) Glucose Level 156 MG/DL (74-106) H Calcium Level 8.7 MG/DL (8.5-10.1) Intake and Output 08/01/17 08/02/17 19:00 07:00 Intake Total 840 ml 480 ml Output Total 1100 ml 500 ml Balance -260 ml -20 ml Intake Oral 840 ml 480 ml Output Urine Total 1100 ml 500 ml # Bowel Movements 1 Objective General Appearance: WD/WN, no apparent distress, alert, other - disheveled EENT: PERRL/EOMI, normal ENT inspection, TMs normal Neck: non-tender, normal alignment, supple, normal inspection Cardiovascular: normal peripheral pulses, normal rate, regular rhythm, no gallop/murmur, no JVD Respiratory/Chest: chest wall non-tender, lungs clear, normal breath sounds, no respiratory distress, no accessory muscle use Abdomen: normal bowel sounds, non tender, soft, no organomegaly, no mass Extremities: normal range of motion, non-tender 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 See ID note (2) Clostridium difficile diarrhea Assessment & Plan: S/P oral vanco Day #10/10 per ID (3) Failure to thrive (4) Cellulitis of right lower extremity Assessment & Plan: S/P antibiotic (5) Osteomyelitis Assessment & Plan: Right great toe. S/P antibiotic (6) Hemorrhage of gastrointestinal tract (7) Diabetes mellitus, type II Assessment & Plan: Continue novolog sliding scale. (8) HTN (hypertension) (9) Hypercholesteremia (10) S/P BKA (below knee amputation) unilateral (11) GERD (gastroesophageal reflux disease) (12) Gastritis (13) Fever Assessment & Plan: Low grade-see ID note. Assessment/Plan Discharge planning: [facility] when bed available. Daniel Tafoya MD August 02, 2017 11:52
[2017-08-02 12:00] VITALS: BP 107/66
[2017-08-02] MEDS: Heparin 5000 units/ml inj SUBQ SCH ×2 (12:05→20:19)
--- NOTE | 2017-08-02 12:41 | Infectious Diseases Prog Note ---
Assessment/Plan Assessment/Plan Assessment: Sepsis , SP Severe Cdiff; , resolved -Cdiff + -CXR: Suggestion of mild basal atelectasis. Correlate clinically -u/a wbc 2/4, nit +, leuk +2; ucx NTD Bcx NTD Leukocytosis, SP -afebrile MENG, improving Recent Right foot cellulitis and right big toe. osteo , s/p Rx -MRI R foot: Findings suspicious for osteomyelitis of the distal aspect of the first distal phalanx -wound cx E.fecalis ([place] S), CoNS (likely represents colonizers) -RP : 2.4 => 07/02 : 0.4 -06/28 ESR : 74 => 07/02 : 31 Recent Coffee ground Emesis 2ry to diffuse gastitis -s/p EGD 07/08: Diffuse gastritis, status post biopsy, otherwise normal upper endoscopic examination. Diabetes. Hyperlipidemia. Hypertension. Left BKA. History of alcohol abuse and smoking until recently. chronic thrombosis of superficial femoral vein. Plan: - Monitor pt off of AB Rx - 07/31 PO Vancomycin 125mg qid abx d# 10 / for C Diff. ( shorten AB Rx to 10 d , in view of rapid response ) - 07/22 SP PO Flagyl #2 - 07/21 SP IV Vanco and Unasyn x1 - 07/01 SP IV vancomycin and Ceftriaxone and Flagyl ( ABx d# 42/42 ) - 05/24 SP Cefepime #4 -Monitor CBC/BMP, temperatures -contact precautions -wound care/prevention per hospital protocol Subjective Allergies: Coded Allergies: No Known Allergies (Unverified , 11/16/14) Subjective afebrile no leukocytosis Objective Vital Signs Last 24 Hour Vital Signs Date Time Temp Pulse Resp B/P (MAP) Pulse Ox O2 Delivery O2 Flow Rate FiO2 08/02/17 08:00 97.9 79 19 106/57 100 Room Air 97.9 08/02/17 04:00 97.7 74 20 143/80 97 97.7 08/02/17 04:00 Room Air 08/02/17 00:00 97.6 70 18 130/73 96 Room Air 97.6 08/01/17 19:39 96.6 72 20 146/85 98 Room Air 96.6 08/01/17 16:00 98.2 97 18 151/86 94 Room Air 98.2 Height (Feet): 5 Height (Inches): 5.00 Weight (Pounds): 127 Objective General Appearance: cachetic Lines, tubes and drains: peripheral HEENT: atraumatic, anicteric Neck: non-tender, normal alignment Respiratory/Chest: chest wall non-tender, lungs clear Cardiovascular/Chest: normal peripheral pulses, regular rhythm Abdomen: normal bowel sounds, non tender Skin Exam: no rash Laboratory Tests Test 08/02/17 06:15 White Blood Count 6.4 K/UL (4.8-10.8) Red Blood Count 3.85 M/UL (4.70-6.10) L Hemoglobin 10.7 G/DL (14.2-18.0) L Hematocrit 32.0 % (42.0-52.0) L Mean Corpuscular Volume 83 FL (80-99) Mean Corpuscular Hemoglobin 27.9 PG (27.0-31.0) Mean Corpuscular Hemoglobin Concent 33.6 G/DL (32.0-36.0) Red Cell Distribution Width 12.5 % (11.6-14.8) Platelet Count 210 K/UL (150-450) Mean Platelet Volume 7.7 FL (6.5-10.1) Neutrophils (%) (Auto) 44.9 % (45.0-75.0) L Lymphocytes (%) (Auto) 42.5 % (20.0-45.0) Monocytes (%) (Auto) 6.0 % (1.0-10.0) Eosinophils (%) (Auto) 5.9 % (0.0-3.0) H Basophils (%) (Auto) 0.8 % (0.0-2.0) Sodium Level 137 MMOL/L (136-145) Potassium Level 4.5 MMOL/L (3.5-5.1) Chloride Level 102 MMOL/L (98-107) Carbon Dioxide Level 27 MMOL/L (21-32) Anion Gap 8 mmol/L (5-15) Blood Urea Nitrogen 13 mg/dL (7-18) Creatinine 0.9 MG/DL (0.55-1.30) Estimat Glomerular Filtration Rate > 60 mL/min (>60) Glucose Level 156 MG/DL (74-106) H Calcium Level 8.7 MG/DL (8.5-10.1) Current Medications Medications (Trade) Dose Ordered Sig/Caden Route PRN Reason Start Time Stop Time Status Last Admin Dose Admin Acetaminophen (Tylenol) 650 mg Q4H PRN ORAL fever 07/24/17 12:00 08/23/17 11:59 Al Hydroxide/Mg Hydroxide (Mylanta II) 30 ml Q6H PRN ORAL dyspepsia 07/24/17 12:00 08/23/17 11:59 Dextrose (Dextrose 50%) STAT PRN IV Hypoglycemia 07/24/17 12:00 08/23/17 11:59 Heparin Sodium (Porcine) (Heparin 5000 units/ml) 5,000 units EVERY 12 HOURS SUBQ 07/24/17 21:00 08/23/17 20:59 08/02/17 12:05 Insulin Aspart (NovoLOG) BEFORE MEALS AND HS SUBQ 07/23/17 21:00 08/21/17 06:29 08/02/17 12:06 Ondansetron HCl (Zofran) 4 mg Q6H PRN IVP Nausea & Vomiting 07/23/17 22:45 08/20/17 22:44 Pantoprazole (Protonix) 40 mg DAILY ORAL 07/25/17 09:00 08/24/17 08:59 08/02/17 12:04 Polyethylene Glycol (Miralax) 17 gm HSPRN PRN ORAL Constipation 07/23/17 22:45 08/20/17 22:44 Sitagliptin Phosphate (Januvia) 50 mg ACBREAKFAST ORAL 07/25/17 06:30 08/24/17 06:29 08/02/17 06:23 Dena Frank M.D. August 02, 2017 12:41
--- NOTE | 2017-08-02 15:59 | Pulmonology Progress Note ---
Assessment/Plan Problems: (1) Cellulitis of right lower extremity (2) Tachycardia (3) Sepsis Assessment/Plan VRE positiive med/surg wbc lower iv abx check electrolytes all reviewed Subjective ROS Limited/Unobtainable: No Constitutional: Reports: no symptoms HEENT: Repors: no symptoms Respiratory: Reports: no symptoms Allergies: Coded Allergies: No Known Allergies (Unverified , 11/16/14) Objective Last 24 Hour Vital Signs Date Time Temp Pulse Resp B/P (MAP) Pulse Ox O2 Delivery O2 Flow Rate FiO2 08/02/17 08:00 97.9 79 19 106/57 100 Room Air 97.9 08/02/17 04:00 97.7 74 20 143/80 97 97.7 08/02/17 04:00 Room Air 08/02/17 00:00 97.6 70 18 130/73 96 Room Air 97.6 08/01/17 19:39 96.6 72 20 146/85 98 Room Air 96.6 08/01/17 16:00 98.2 97 18 151/86 94 Room Air 98.2 Intake and Output 08/01/17 08/02/17 19:00 07:00 Intake Total 840 ml 480 ml Output Total 1100 ml 500 ml Balance -260 ml -20 ml Intake Oral 840 ml 480 ml Output Urine Total 1100 ml 500 ml # Bowel Movements 1 Objective General Appearance: WD/WN HEENT: normocephalic Respiratory/Chest: chest wall non-tender, lungs clear Cardiovascular: normal peripheral pulses, normal rate Abdomen: normal bowel sounds, soft, non tender Genitourinary: normal external genitalia Extremities: no clubbing 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 Laboratory Tests 08/02/17 06:15: White Blood Count 6.4, Red Blood Count 3.85L, Hemoglobin 10.7L, Hematocrit 32.0L , Mean Corpuscular Volume 83, Mean Corpuscular Hemoglobin 27.9, Mean Corpuscular Hemoglobin Concent 33.6, Red Cell Distribution Width 12.5, Platelet Count 210, Mean Platelet Volume 7.7, Neutrophils (%) (Auto) 44.9L, Lymphocytes ( %) (Auto) 42.5, Monocytes (%) (Auto) 6.0, Eosinophils (%) (Auto) 5.9H, Basophils (%) (Auto) 0.8, Sodium Level 137, Potassium Level 4.5, Chloride Level 102, Carbon Dioxide Level 27, Anion Gap 8, Blood Urea Nitrogen 13, Creatinine 0.9, Estimat Glomerular Filtration Rate > 60, Glucose Level 156H, Calcium Level 8.7 Current Medications Medications (Trade) Dose Ordered Sig/Caden Route PRN Reason Start Time Stop Time Status Last Admin Dose Admin Acetaminophen (Tylenol) 650 mg Q4H PRN ORAL fever 07/24/17 12:00 08/23/17 11:59 Al Hydroxide/Mg Hydroxide (Mylanta II) 30 ml Q6H PRN ORAL dyspepsia 07/24/17 12:00 08/23/17 11:59 Dextrose (Dextrose 50%) STAT PRN IV Hypoglycemia 07/24/17 12:00 08/23/17 11:59 Heparin Sodium (Porcine) (Heparin 5000 units/ml) 5,000 units EVERY 12 HOURS SUBQ 07/24/17 21:00 08/23/17 20:59 08/02/17 12:05 Insulin Aspart (NovoLOG) BEFORE MEALS AND HS SUBQ 07/23/17 21:00 08/21/17 06:29 08/02/17 12:06 Ondansetron HCl (Zofran) 4 mg Q6H PRN IVP Nausea & Vomiting 07/23/17 22:45 08/20/17 22:44 Pantoprazole (Protonix) 40 mg DAILY ORAL 07/25/17 09:00 08/24/17 08:59 08/02/17 12:04 Polyethylene Glycol (Miralax) 17 gm HSPRN PRN ORAL Constipation 07/23/17 22:45 08/20/17 22:44 Sitagliptin Phosphate (Januvia) 50 mg ACBREAKFAST ORAL 07/25/17 06:30 08/24/17 06:29 08/02/17 06:23 Kyra Massey MD August 02, 2017 15:59
[2017-08-02 16:45] VITALS: BP 129/97
[2017-08-02 20:41] VITALS: BP 140/86
[2017-08-03] VITALS: BP 126/69
[2017-08-03 04:00] VITALS: BP 128/65
[2017-08-03] MEDS: sitaGLIPtin 50mg tab ORAL SCH (05:52)
[2017-08-03] MEDS: NovoLOG Insulin Flexpen SUBQ SCH ×4 (05:53→21:14)
[2017-08-03 08:00] VITALS: BP 129/54
[2017-08-03] MEDS: Heparin 5000 units/ml inj SUBQ SCH ×2 (08:55→21:15)
--- NOTE | 2017-08-03 10:38 | Infectious Diseases Prog Note ---
Assessment/Plan Assessment/Plan Assessment: Sepsis , SP Severe Cdiff; , resolved -Cdiff + -CXR: Suggestion of mild basal atelectasis. Correlate clinically -u/a wbc 2/4, nit +, leuk +2; ucx mixed gram positive growth Bcx Neg Leukocytosis, SP -afebrile MENG, improving Recent Right foot cellulitis and right big toe. osteo , s/p Rx -MRI R foot: Findings suspicious for osteomyelitis of the distal aspect of the first distal phalanx -wound cx E.fecalis ([place] S), CoNS (likely represents colonizers) -RP : 2.4 => 07/02 : 0.4 -06/28 ESR : 74 => 07/02 : 31 Recent Coffee ground Emesis 2ry to diffuse gastitis -s/p EGD 07/08: Diffuse gastritis, status post biopsy, otherwise normal upper endoscopic examination. Diabetes. Hyperlipidemia. Hypertension. Left BKA. History of alcohol abuse and smoking until recently. chronic thrombosis of superficial femoral vein. Plan: - Monitor pt off of AB Rx - 07/31 PO Vancomycin 125mg qid abx d# 10 for C Diff. ( shorten AB Rx to 10 d , in view of rapid response ) - 07/22 SP PO Flagyl #2 - 07/21 SP IV Vanco and Unasyn x1 - 07/01 SP IV vancomycin and Ceftriaxone and Flagyl ( ABx d# ) - 05/24 SP Cefepime #4 -Monitor CBC/BMP, temperatures -contact precautions -wound care/prevention per hospital protocol Subjective Allergies: Coded Allergies: No Known Allergies (Unverified , 11/16/14) Subjective afebrile in >36hrs no leukocytosis off abx Objective Vital Signs Last 24 Hour Vital Signs Date Time Temp Pulse Resp B/P (MAP) Pulse Ox O2 Delivery O2 Flow Rate FiO2 08/03/17 08:00 97.3 68 16 129/54 98 Room Air 97.3 08/03/17 04:00 Room Air 08/03/17 04:00 98.0 75 18 128/65 96 98.0 08/03/17 00:00 Room Air 08/03/17 00:00 97.6 73 17 126/69 98 97.6 08/02/17 20:41 98.1 71 17 140/86 95 98.1 08/02/17 20:00 Room Air 08/02/17 16:45 98.0 79 18 129/97 96 Room Air 98.0 08/02/17 12:00 97.8 78 20 107/66 95 Room Air 97.8 Height (Feet): 5 Height (Inches): 5.00 Weight (Pounds): 127 Objective General Appearance: cachetic Lines, tubes and drains: peripheral HEENT: atraumatic, anicteric Neck: non-tender, normal alignment Respiratory/Chest: chest wall non-tender, lungs clear Cardiovascular/Chest: normal peripheral pulses, regular rhythm Abdomen: normal bowel sounds, non tender Skin Exam: no rash Current Medications Medications (Trade) Dose Ordered Sig/Caden Route PRN Reason Start Time Stop Time Status Last Admin Dose Admin Acetaminophen (Tylenol) 650 mg Q4H PRN ORAL fever 07/24/17 12:00 08/23/17 11:59 Al Hydroxide/Mg Hydroxide (Mylanta II) 30 ml Q6H PRN ORAL dyspepsia 07/24/17 12:00 08/23/17 11:59 Dextrose (Dextrose 50%) STAT PRN IV Hypoglycemia 07/24/17 12:00 08/23/17 11:59 Heparin Sodium (Porcine) (Heparin 5000 units/ml) 5,000 units EVERY 12 HOURS SUBQ 07/24/17 21:00 08/23/17 20:59 08/03/17 08:55 Insulin Aspart (NovoLOG) BEFORE MEALS AND HS SUBQ 07/23/17 21:00 08/21/17 06:29 08/03/17 05:53 Ondansetron HCl (Zofran) 4 mg Q6H PRN IVP Nausea & Vomiting 07/23/17 22:45 08/20/17 22:44 Pantoprazole (Protonix) 40 mg DAILY ORAL 07/25/17 09:00 08/24/17 08:59 08/03/17 08:56 Polyethylene Glycol (Miralax) 17 gm HSPRN PRN ORAL Constipation 07/23/17 22:45 08/20/17 22:44 Sitagliptin Phosphate (Januvia) 50 mg ACBREAKFAST ORAL 07/25/17 06:30 08/24/17 06:29 08/03/17 05:52 Dena Frank M.D. August 03, 2017 10:38
[2017-08-03 12:00] VITALS: BP 142/75
--- NOTE | 2017-08-03 14:29 | Pulmonology Progress Note ---
Assessment/Plan Problems: (1) Cellulitis of right lower extremity (2) Tachycardia (3) Sepsis Assessment/Plan VRE positiive med/surg wbc lower iv abx check electrolytes all reviewed Subjective ROS Limited/Unobtainable: No Allergies: Coded Allergies: No Known Allergies (Unverified , 11/16/14) Objective Last 24 Hour Vital Signs Date Time Temp Pulse Resp B/P (MAP) Pulse Ox O2 Delivery O2 Flow Rate FiO2 08/03/17 12:00 98.1 65 16 142/75 97 Room Air 98.1 08/03/17 08:00 97.3 68 16 129/54 98 Room Air 97.3 08/03/17 04:00 Room Air 08/03/17 04:00 98.0 75 18 128/65 96 98.0 08/03/17 00:00 Room Air 08/03/17 00:00 97.6 73 17 126/69 98 97.6 08/02/17 20:41 98.1 71 17 140/86 95 98.1 08/02/17 20:00 Room Air 08/02/17 16:45 98.0 79 18 129/97 96 Room Air 98.0 Intake and Output 08/02/17 08/03/17 19:00 07:00 Intake Total 800 ml 120 ml Output Total 3 ml 900 ml Balance 797 ml -780 ml Intake Oral 800 ml 120 ml Output Urine Total 900 ml Stool Total 3 ml # Voids 4 2 # Bowel Movements 1 Objective General Appearance: WD/WN HEENT: normocephalic Respiratory/Chest: chest wall non-tender, lungs clear Cardiovascular: normal peripheral pulses, normal rate Abdomen: normal bowel sounds, soft, non tender Genitourinary: normal external genitalia Extremities: no clubbing 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 Current Medications Medications (Trade) Dose Ordered Sig/Caden Route PRN Reason Start Time Stop Time Status Last Admin Dose Admin Acetaminophen (Tylenol) 650 mg Q4H PRN ORAL fever 07/24/17 12:00 08/23/17 11:59 Al Hydroxide/Mg Hydroxide (Mylanta II) 30 ml Q6H PRN ORAL dyspepsia 07/24/17 12:00 08/23/17 11:59 Dextrose (Dextrose 50%) STAT PRN IV Hypoglycemia 07/24/17 12:00 08/23/17 11:59 Heparin Sodium (Porcine) (Heparin 5000 units/ml) 5,000 units EVERY 12 HOURS SUBQ 07/24/17 21:00 08/23/17 20:59 08/03/17 08:55 Insulin Aspart (NovoLOG) BEFORE MEALS AND HS SUBQ 07/23/17 21:00 08/21/17 06:29 08/03/17 11:27 Ondansetron HCl (Zofran) 4 mg Q6H PRN IVP Nausea & Vomiting 07/23/17 22:45 08/20/17 22:44 Pantoprazole (Protonix) 40 mg DAILY ORAL 07/25/17 09:00 08/24/17 08:59 08/03/17 08:56 Polyethylene Glycol (Miralax) 17 gm HSPRN PRN ORAL Constipation 07/23/17 22:45 08/20/17 22:44 Sitagliptin Phosphate (Januvia) 50 mg ACBREAKFAST ORAL 07/25/17 06:30 08/24/17 06:29 08/03/17 05:52 Kyra Massey MD August 03, 2017 14:29
[2017-08-03 15:50] VITALS: BP 112/63
--- NOTE | 2017-08-03 17:09 | Internal Med Progress Note ---
Subjective Date of Service: August 03, 2017 Physician Name Daniel Tafoya Attending Physician Tello Fay MD Current Medications Medications (Trade) Dose Ordered Sig/Caden Route PRN Reason Start Time Stop Time Status Last Admin Dose Admin Acetaminophen (Tylenol) 650 mg Q4H PRN ORAL fever 07/24/17 12:00 08/23/17 11:59 Al Hydroxide/Mg Hydroxide (Mylanta II) 30 ml Q6H PRN ORAL dyspepsia 07/24/17 12:00 08/23/17 11:59 Dextrose (Dextrose 50%) STAT PRN IV Hypoglycemia 07/24/17 12:00 08/23/17 11:59 Heparin Sodium (Porcine) (Heparin 5000 units/ml) 5,000 units EVERY 12 HOURS SUBQ 07/24/17 21:00 08/23/17 20:59 08/03/17 08:55 Insulin Aspart (NovoLOG) BEFORE MEALS AND HS SUBQ 07/23/17 21:00 08/21/17 06:29 08/03/17 16:38 Ondansetron HCl (Zofran) 4 mg Q6H PRN IVP Nausea & Vomiting 07/23/17 22:45 08/20/17 22:44 Pantoprazole (Protonix) 40 mg DAILY ORAL 07/25/17 09:00 08/24/17 08:59 08/03/17 08:56 Polyethylene Glycol (Miralax) 17 gm HSPRN PRN ORAL Constipation 07/23/17 22:45 08/20/17 22:44 Sitagliptin Phosphate (Januvia) 50 mg ACBREAKFAST ORAL 07/25/17 06:30 08/24/17 06:29 08/03/17 05:52 Allergies: Coded Allergies: No Known Allergies (Unverified , 11/16/14) ROS Limited/Unobtainable: No Constitutional: Reports: no symptoms HEENT: Reports: no symptoms Cardiovascular: Reports: no symptoms Respiratory: Reports: no symptoms Gastrointestinal/Abdominal: Reports: no symptoms Genitourinary: Reports: no symptoms Neurologic/Psychiatric: Reports: no symptoms Subjective 66 YO M admitted with C. Diff diarrhea. Cover for Int Med-Dr Fay. Await placement Objective Last Vital Signs Date Time Temp Pulse Resp B/P (MAP) Pulse Ox O2 Delivery O2 Flow Rate FiO2 08/03/17 15:50 98.2 76 22 112/63 97 Room Air 98.2 08/01/17 08:00 2.0 Intake and Output 08/02/17 08/03/17 19:00 07:00 Intake Total 800 ml 120 ml Output Total 3 ml 900 ml Balance 797 ml -780 ml Intake Oral 800 ml 120 ml Output Urine Total 900 ml Stool Total 3 ml # Voids 4 2 # Bowel Movements 1 Objective General Appearance: WD/WN, no apparent distress, alert, other - disheveled EENT: PERRL/EOMI, normal ENT inspection, TMs normal Neck: non-tender, normal alignment, supple, normal inspection Cardiovascular: normal peripheral pulses, normal rate, regular rhythm, no gallop/murmur, no JVD Respiratory/Chest: chest wall non-tender, lungs clear, normal breath sounds, no respiratory distress, no accessory muscle use Abdomen: normal bowel sounds, non tender, soft, no organomegaly, no mass Extremities: normal range of motion, non-tender 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 See ID note (2) Clostridium difficile diarrhea Assessment & Plan: S/P oral vanco Day #10/10 per ID (3) Failure to thrive (4) Cellulitis of right lower extremity Assessment & Plan: S/P antibiotic (5) Osteomyelitis Assessment & Plan: Right great toe. S/P antibiotic (6) Hemorrhage of gastrointestinal tract (7) Diabetes mellitus, type II Assessment & Plan: Continue novolog sliding scale. (8) HTN (hypertension) (9) Hypercholesteremia (10) S/P BKA (below knee amputation) unilateral (11) GERD (gastroesophageal reflux disease) (12) Gastritis (13) Fever Assessment & Plan: Low grade-see ID note. Assessment/Plan Discharge planning: [facility] when bed available. Daniel Tafoya MD August 03, 2017 17:09
[2017-08-03 20:00] VITALS: BP 113/74
[2017-08-04] VITALS: BP 132/69
[2017-08-04 04:00] VITALS: BP 117/68
[2017-08-04] MEDS: sitaGLIPtin 50mg tab ORAL SCH (06:15)
[2017-08-04] MEDS: NovoLOG Insulin Flexpen SUBQ SCH ×4 (06:19→21:43)
[2017-08-04] MEDS: Heparin 5000 units/ml inj SUBQ SCH ×2 (08:57→21:43)
--- NOTE | 2017-08-04 11:36 | Infectious Diseases Prog Note ---
Assessment/Plan Assessment/Plan Assessment: Sepsis , SP Severe Cdiff; , resolved , s/p Rx -Cdiff + -CXR: Suggestion of mild basal atelectasis. Correlate clinically -u/a wbc 2/4, nit +, leuk +2; ucx mixed gram positive growth Bcx Neg Leukocytosis, SP Low grade fever, SP MENG, improving Recent Right foot cellulitis and right big toe. osteo , s/p Rx -MRI R foot: Findings suspicious for osteomyelitis of the distal aspect of the first distal phalanx -wound cx E.fecalis ([place] S), CoNS (likely represents colonizers) -RP : 2.4 => 07/02 : 0.4 -06/28 ESR : 74 => 07/02 : 31 Recent Coffee ground Emesis 2ry to diffuse gastitis -s/p EGD 07/08: Diffuse gastritis, status post biopsy, otherwise normal upper endoscopic examination. Diabetes. Hyperlipidemia. Hypertension. Left BKA. History of alcohol abuse and smoking until recently. chronic thrombosis of superficial femoral vein. Plan: - Monitor pt off of AB Rx - 07/31 PO Vancomycin 125mg qid abx d# 10 / for C Diff. ( shorten AB Rx to 10 d , in view of rapid response ) - 07/22 SP PO Flagyl #2 - 07/21 SP IV Vanco and Unasyn x1 - 07/01 SP IV vancomycin and Ceftriaxone and Flagyl ( ABx d# 42/42 ) - 05/24 SP Cefepime #4 -Monitor CBC/BMP, temperatures -contact precautions -wound care/prevention per hospital protocol Subjective Allergies: Coded Allergies: No Known Allergies (Unverified , 11/16/14) Subjective afebrile in 72 hrs no leukocytosis off abx Objective Vital Signs Last 24 Hour Vital Signs Date Time Temp Pulse Resp B/P (MAP) Pulse Ox O2 Delivery O2 Flow Rate FiO2 08/04/17 04:00 97.2 18 117/68 96 97.2 08/04/17 04:00 Room Air 08/04/17 00:00 Room Air 08/04/17 00:00 98.1 72 18 132/69 96 98.1 08/03/17 20:00 Room Air 08/03/17 20:00 98.1 78 18 113/74 96 98.1 08/03/17 15:50 98.2 76 22 112/63 97 Room Air 98.2 08/03/17 12:00 98.1 65 16 142/75 97 Room Air 98.1 Height (Feet): 5 Height (Inches): 5.00 Weight (Pounds): 135 Objective General Appearance: cachetic Lines, tubes and drains: peripheral HEENT: atraumatic, anicteric Neck: non-tender, normal alignment Respiratory/Chest: chest wall non-tender, lungs clear Cardiovascular/Chest: normal peripheral pulses, regular rhythm Abdomen: normal bowel sounds, non tender Skin Exam: no rash Current Medications Medications (Trade) Dose Ordered Sig/Caden Route PRN Reason Start Time Stop Time Status Last Admin Dose Admin Acetaminophen (Tylenol) 650 mg Q4H PRN ORAL fever 07/24/17 12:00 08/23/17 11:59 Al Hydroxide/Mg Hydroxide (Mylanta II) 30 ml Q6H PRN ORAL dyspepsia 07/24/17 12:00 08/23/17 11:59 Dextrose (Dextrose 50%) STAT PRN IV Hypoglycemia 07/24/17 12:00 08/23/17 11:59 Heparin Sodium (Porcine) (Heparin 5000 units/ml) 5,000 units EVERY 12 HOURS SUBQ 07/24/17 21:00 08/23/17 20:59 08/03/17 21:15 Insulin Aspart (NovoLOG) BEFORE MEALS AND HS SUBQ 07/23/17 21:00 08/21/17 06:29 08/04/17 06:19 Ondansetron HCl (Zofran) 4 mg Q6H PRN IVP Nausea & Vomiting 07/23/17 22:45 08/20/17 22:44 Pantoprazole (Protonix) 40 mg DAILY ORAL 07/25/17 09:00 08/24/17 08:59 08/04/17 08:58 Polyethylene Glycol (Miralax) 17 gm HSPRN PRN ORAL Constipation 07/23/17 22:45 08/20/17 22:44 Sitagliptin Phosphate (Januvia) 50 mg ACBREAKFAST ORAL 07/25/17 06:30 08/24/17 06:29 08/04/17 06:15 Dena Frank M.D. August 04, 2017 11:36
[2017-08-04 12:00] VITALS: BP 142/75
--- NOTE | 2017-08-04 14:40 | Pulmonology Progress Note ---
Assessment/Plan Problems: (1) Cellulitis of right lower extremity (2) Tachycardia (3) Sepsis Assessment/Plan VRE positiive med/surg wbc lower iv abx check electrolytes all reviewed Subjective ROS Limited/Unobtainable: No Allergies: Coded Allergies: No Known Allergies (Unverified , 11/16/14) Objective Last 24 Hour Vital Signs Date Time Temp Pulse Resp B/P (MAP) Pulse Ox O2 Delivery O2 Flow Rate FiO2 08/04/17 12:00 98.1 16 142/75 97 Room Air 98.1 08/04/17 04:00 97.2 18 117/68 96 97.2 08/04/17 04:00 Room Air 08/04/17 00:00 Room Air 08/04/17 00:00 98.1 72 18 132/69 96 98.1 08/03/17 20:00 Room Air 08/03/17 20:00 98.1 78 18 113/74 96 98.1 08/03/17 15:50 98.2 76 22 112/63 97 Room Air 98.2 Intake and Output 08/03/17 08/04/17 19:00 07:00 Intake Total 1300 ml Output Total 400 ml Balance 900 ml Intake Oral 1300 ml Output Urine Total 400 ml # Voids 6 5 # Bowel Movements 1 Objective General Appearance: WD/WN HEENT: normocephalic Respiratory/Chest: chest wall non-tender, lungs clear Cardiovascular: normal peripheral pulses, normal rate Abdomen: normal bowel sounds, soft, non tender Genitourinary: normal external genitalia Extremities: no clubbing 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 Current Medications Medications (Trade) Dose Ordered Sig/Caden Route PRN Reason Start Time Stop Time Status Last Admin Dose Admin Acetaminophen (Tylenol) 650 mg Q4H PRN ORAL fever 07/24/17 12:00 08/23/17 11:59 Al Hydroxide/Mg Hydroxide (Mylanta II) 30 ml Q6H PRN ORAL dyspepsia 07/24/17 12:00 08/23/17 11:59 Dextrose (Dextrose 50%) STAT PRN IV Hypoglycemia 07/24/17 12:00 08/23/17 11:59 Heparin Sodium (Porcine) (Heparin 5000 units/ml) 5,000 units EVERY 12 HOURS SUBQ 07/24/17 21:00 08/23/17 20:59 08/03/17 21:15 Insulin Aspart (NovoLOG) BEFORE MEALS AND HS SUBQ 07/23/17 21:00 08/21/17 06:29 08/04/17 12:06 Ondansetron HCl (Zofran) 4 mg Q6H PRN IVP Nausea & Vomiting 07/23/17 22:45 08/20/17 22:44 Pantoprazole (Protonix) 40 mg DAILY ORAL 07/25/17 09:00 08/24/17 08:59 08/04/17 08:58 Polyethylene Glycol (Miralax) 17 gm HSPRN PRN ORAL Constipation 07/23/17 22:45 08/20/17 22:44 Sitagliptin Phosphate (Januvia) 50 mg ACBREAKFAST ORAL 07/25/17 06:30 08/24/17 06:29 08/04/17 06:15 Kyra Massey MD August 04, 2017 14:40
[2017-08-04 15:35] VITALS: BP 118/77
[2017-08-04 19:48] VITALS: BP 114/69
--- NOTE | 2017-08-04 19:50 | Internal Med Progress Note ---
Subjective Date of Service: August 04, 2017 Physician Name Daniel Tafoya Attending Physician Tello Fay MD Current Medications Medications (Trade) Dose Ordered Sig/Caden Route PRN Reason Start Time Stop Time Status Last Admin Dose Admin Acetaminophen (Tylenol) 650 mg Q4H PRN ORAL fever 07/24/17 12:00 08/23/17 11:59 Al Hydroxide/Mg Hydroxide (Mylanta II) 30 ml Q6H PRN ORAL dyspepsia 07/24/17 12:00 08/23/17 11:59 Dextrose (Dextrose 50%) STAT PRN IV Hypoglycemia 07/24/17 12:00 08/23/17 11:59 Heparin Sodium (Porcine) (Heparin 5000 units/ml) 5,000 units EVERY 12 HOURS SUBQ 07/24/17 21:00 08/23/17 20:59 08/03/17 21:15 Insulin Aspart (NovoLOG) BEFORE MEALS AND HS SUBQ 07/23/17 21:00 08/21/17 06:29 08/04/17 16:54 Ondansetron HCl (Zofran) 4 mg Q6H PRN IVP Nausea & Vomiting 07/23/17 22:45 08/20/17 22:44 Pantoprazole (Protonix) 40 mg DAILY ORAL 07/25/17 09:00 08/24/17 08:59 08/04/17 08:58 Polyethylene Glycol (Miralax) 17 gm HSPRN PRN ORAL Constipation 07/23/17 22:45 08/20/17 22:44 Sitagliptin Phosphate (Januvia) 50 mg ACBREAKFAST ORAL 07/25/17 06:30 08/24/17 06:29 08/04/17 06:15 Allergies: Coded Allergies: No Known Allergies (Unverified , 11/16/14) Constitutional: Reports: no symptoms HEENT: Reports: no symptoms Cardiovascular: Reports: no symptoms Respiratory: Reports: no symptoms Gastrointestinal/Abdominal: Reports: no symptoms Genitourinary: Reports: no symptoms Neurologic/Psychiatric: Reports: no symptoms Subjective 66 YO M admitted with C. Diff diarrhea. Cover for Int Med-Dr Fay. Await placement Objective Last Vital Signs Date Time Temp Pulse Resp B/P (MAP) Pulse Ox O2 Delivery O2 Flow Rate FiO2 08/04/17 19:48 97.3 76 18 114/69 97.3 08/04/17 15:35 96 08/04/17 12:00 Room Air 08/01/17 08:00 2.0 Intake and Output 08/03/17 08/04/17 19:00 07:00 Intake Total 1300 ml Output Total 400 ml Balance 900 ml Intake Oral 1300 ml Output Urine Total 400 ml # Voids 6 5 # Bowel Movements 1 Objective General Appearance: WD/WN, no apparent distress, alert, other - disheveled EENT: PERRL/EOMI, normal ENT inspection, TMs normal Neck: non-tender, normal alignment, supple, normal inspection Cardiovascular: normal peripheral pulses, normal rate, regular rhythm, no gallop/murmur, no JVD Respiratory/Chest: chest wall non-tender, lungs clear, normal breath sounds, no respiratory distress, no accessory muscle use Abdomen: normal bowel sounds, non tender, soft, no organomegaly, no mass Extremities: normal range of motion, non-tender 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 See ID note (2) Clostridium difficile diarrhea Assessment & Plan: S/P oral vanco Day #10/10 per ID (3) Failure to thrive (4) Cellulitis of right lower extremity Assessment & Plan: S/P antibiotic (5) Osteomyelitis Assessment & Plan: Right great toe. S/P antibiotic (6) Hemorrhage of gastrointestinal tract (7) Diabetes mellitus, type II Assessment & Plan: Continue novolog sliding scale. (8) HTN (hypertension) (9) Hypercholesteremia (10) S/P BKA (below knee amputation) unilateral (11) GERD (gastroesophageal reflux disease) (12) Gastritis (13) Fever Assessment & Plan: Low grade-see ID note. Assessment/Plan Discharge planning: [facility] when bed available. Daniel Tafoya MD August 04, 2017 19:50
[2017-08-05] VITALS: BP 111/66
[2017-08-05 04:00] VITALS: BP 108/69
[2017-08-05] MEDS: sitaGLIPtin 50mg tab ORAL SCH (06:00)
[2017-08-05] MEDS: NovoLOG Insulin Flexpen SUBQ SCH ×4 (06:02→20:29)
[2017-08-05] MEDS: Heparin 5000 units/ml inj SUBQ SCH ×2 (10:08→20:30)
[2017-08-05 12:00] VITALS: BP 139/80
--- NOTE | 2017-08-05 13:36 | Infectious Diseases Prog Note ---
Assessment/Plan Assessment/Plan Assessment: Sepsis , SP Severe Cdiff; , resolved , s/p Rx -Cdiff + -CXR: Suggestion of mild basal atelectasis. Correlate clinically -u/a wbc 2/4, nit +, leuk +2; ucx mixed gram positive growth Bcx Neg Leukocytosis, SP Low grade fever, SP MENG, improving Recent Right foot cellulitis and right big toe. osteo , s/p Rx -MRI R foot: Findings suspicious for osteomyelitis of the distal aspect of the first distal phalanx -wound cx E.fecalis ([place] S), CoNS (likely represents colonizers) -RP : 2.4 => 07/02 : 0.4 -06/28 ESR : 74 => 07/02 : 31 Recent Coffee ground Emesis 2ry to diffuse gastitis -s/p EGD 07/08: Diffuse gastritis, status post biopsy, otherwise normal upper endoscopic examination. Diabetes. Hyperlipidemia. Hypertension. Left BKA. History of alcohol abuse and smoking until recently. chronic thrombosis of superficial femoral vein. Plan: - Monitor pt off of AB Rx - 07/31 PO Vancomycin 125mg qid abx d# 10 / for C Diff. ( shorten AB Rx to 10 d , in view of rapid response ) - 07/22 SP PO Flagyl #2 - 07/21 SP IV Vanco and Unasyn x1 - 07/01 SP IV vancomycin and Ceftriaxone and Flagyl ( ABx d# 42/42 ) - 05/24 SP Cefepime #4 -Monitor CBC/BMP, temperatures -contact precautions -wound care/prevention per hospital protocol -discharge planning Subjective Allergies: Coded Allergies: No Known Allergies (Unverified , 11/16/14) Subjective afebrile no leukocytosis off abx discharge planning Objective Vital Signs Last 24 Hour Vital Signs Date Time Temp Pulse Resp B/P (MAP) Pulse Ox O2 Delivery O2 Flow Rate FiO2 08/05/17 12:00 97.9 69 18 139/80 97 97.9 08/05/17 04:00 97.4 80 18 108/69 98 97.4 08/05/17 00:00 97.5 74 18 111/66 95 97.5 08/04/17 19:48 97.3 76 18 114/69 97.3 08/04/17 15:35 97.6 76 20 118/77 96 97.6 Height (Feet): 5 Height (Inches): 5.00 Weight (Pounds): 135 Objective General Appearance: cachetic Lines, tubes and drains: peripheral HEENT: atraumatic, anicteric Neck: non-tender, normal alignment Respiratory/Chest: chest wall non-tender, lungs clear Cardiovascular/Chest: normal peripheral pulses, regular rhythm Abdomen: normal bowel sounds, non tender Skin Exam: no rash Current Medications Medications (Trade) Dose Ordered Sig/Caden Route PRN Reason Start Time Stop Time Status Last Admin Dose Admin Acetaminophen (Tylenol) 650 mg Q4H PRN ORAL fever 07/24/17 12:00 08/23/17 11:59 Al Hydroxide/Mg Hydroxide (Mylanta II) 30 ml Q6H PRN ORAL dyspepsia 07/24/17 12:00 08/23/17 11:59 Dextrose (Dextrose 50%) STAT PRN IV Hypoglycemia 07/24/17 12:00 08/23/17 11:59 Heparin Sodium (Porcine) (Heparin 5000 units/ml) 5,000 units EVERY 12 HOURS SUBQ 07/24/17 21:00 08/23/17 20:59 08/05/17 10:08 Insulin Aspart (NovoLOG) BEFORE MEALS AND HS SUBQ 07/23/17 21:00 08/21/17 06:29 08/05/17 12:06 Ondansetron HCl (Zofran) 4 mg Q6H PRN IVP Nausea & Vomiting 07/23/17 22:45 08/20/17 22:44 Pantoprazole (Protonix) 40 mg DAILY ORAL 07/25/17 09:00 08/24/17 08:59 08/05/17 10:07 Polyethylene Glycol (Miralax) 17 gm HSPRN PRN ORAL Constipation 07/23/17 22:45 08/20/17 22:44 Sitagliptin Phosphate (Januvia) 50 mg ACBREAKFAST ORAL 07/25/17 06:30 08/24/17 06:29 08/05/17 06:00 Dena Frank M.D. August 05, 2017 13:36
--- NOTE | 2017-08-05 15:37 | Pulmonology Progress Note ---
Assessment/Plan Problems: (1) Cellulitis of right lower extremity (2) Tachycardia (3) Sepsis Assessment/Plan VRE positiive med/surg wbc lower iv abx check electrolytes all reviewed Subjective ROS Limited/Unobtainable: No Constitutional: Reports: no symptoms HEENT: Repors: no symptoms Respiratory: Reports: no symptoms Allergies: Coded Allergies: No Known Allergies (Unverified , 11/16/14) Objective Last 24 Hour Vital Signs Date Time Temp Pulse Resp B/P (MAP) Pulse Ox O2 Delivery O2 Flow Rate FiO2 08/05/17 12:00 97.9 69 18 139/80 97 97.9 08/05/17 04:00 97.4 80 18 108/69 98 97.4 08/05/17 00:00 97.5 74 18 111/66 95 97.5 08/04/17 19:48 97.3 76 18 114/69 97.3 Intake and Output 08/04/17 08/05/17 19:00 07:00 Intake Total 720 ml 220 ml Output Total 600 ml Balance 720 ml -380 ml Intake Oral 720 ml 220 ml Output Urine Total 600 ml # Bowel Movements 1 Objective General Appearance: WD/WN HEENT: normocephalic Respiratory/Chest: chest wall non-tender, lungs clear Cardiovascular: normal peripheral pulses, normal rate Abdomen: normal bowel sounds, soft, non tender Genitourinary: normal external genitalia Extremities: no clubbing 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 Current Medications Medications (Trade) Dose Ordered Sig/Caden Route PRN Reason Start Time Stop Time Status Last Admin Dose Admin Acetaminophen (Tylenol) 650 mg Q4H PRN ORAL fever 07/24/17 12:00 08/23/17 11:59 Al Hydroxide/Mg Hydroxide (Mylanta II) 30 ml Q6H PRN ORAL dyspepsia 07/24/17 12:00 08/23/17 11:59 Dextrose (Dextrose 50%) STAT PRN IV Hypoglycemia 07/24/17 12:00 08/23/17 11:59 Heparin Sodium (Porcine) (Heparin 5000 units/ml) 5,000 units EVERY 12 HOURS SUBQ 07/24/17 21:00 08/23/17 20:59 08/05/17 10:08 Insulin Aspart (NovoLOG) BEFORE MEALS AND HS SUBQ 07/23/17 21:00 08/21/17 06:29 08/05/17 12:06 Ondansetron HCl (Zofran) 4 mg Q6H PRN IVP Nausea & Vomiting 07/23/17 22:45 08/20/17 22:44 Pantoprazole (Protonix) 40 mg DAILY ORAL 07/25/17 09:00 08/24/17 08:59 08/05/17 10:07 Polyethylene Glycol (Miralax) 17 gm HSPRN PRN ORAL Constipation 07/23/17 22:45 08/20/17 22:44 Sitagliptin Phosphate (Januvia) 50 mg ACBREAKFAST ORAL 07/25/17 06:30 08/24/17 06:29 08/05/17 06:00 Kyra Massey MD August 05, 2017 15:37
[2017-08-05 16:00] VITALS: BP 135/87
--- NOTE | 2017-08-05 19:40 | Internal Med Progress Note ---
Subjective Date of Service: August 05, 2017 Physician Name Daniel Tafoya Attending Physician Tello Fay MD Current Medications Medications (Trade) Dose Ordered Sig/Caden Route PRN Reason Start Time Stop Time Status Last Admin Dose Admin Acetaminophen (Tylenol) 650 mg Q4H PRN ORAL fever 07/24/17 12:00 08/23/17 11:59 Al Hydroxide/Mg Hydroxide (Mylanta II) 30 ml Q6H PRN ORAL dyspepsia 07/24/17 12:00 08/23/17 11:59 Dextrose (Dextrose 50%) STAT PRN IV Hypoglycemia 07/24/17 12:00 08/23/17 11:59 Heparin Sodium (Porcine) (Heparin 5000 units/ml) 5,000 units EVERY 12 HOURS SUBQ 07/24/17 21:00 08/23/17 20:59 08/05/17 10:08 Insulin Aspart (NovoLOG) BEFORE MEALS AND HS SUBQ 07/23/17 21:00 08/21/17 06:29 08/05/17 17:04 Ondansetron HCl (Zofran) 4 mg Q6H PRN IVP Nausea & Vomiting 07/23/17 22:45 08/20/17 22:44 Pantoprazole (Protonix) 40 mg DAILY ORAL 07/25/17 09:00 08/24/17 08:59 08/05/17 10:07 Polyethylene Glycol (Miralax) 17 gm HSPRN PRN ORAL Constipation 07/23/17 22:45 08/20/17 22:44 Sitagliptin Phosphate (Januvia) 50 mg ACBREAKFAST ORAL 07/25/17 06:30 08/24/17 06:29 08/05/17 06:00 Allergies: Coded Allergies: No Known Allergies (Unverified , 11/16/14) ROS Limited/Unobtainable: No Constitutional: Reports: no symptoms HEENT: Reports: no symptoms Cardiovascular: Reports: no symptoms Respiratory: Reports: no symptoms Gastrointestinal/Abdominal: Reports: no symptoms Genitourinary: Reports: no symptoms Neurologic/Psychiatric: Reports: no symptoms Subjective 66 YO M admitted with C. Diff diarrhea. Cover for Int Med-Dr Fay. Await placement Objective Last Vital Signs Date Time Temp Pulse Resp B/P (MAP) Pulse Ox O2 Delivery O2 Flow Rate FiO2 08/05/17 16:00 97.9 76 19 135/87 98 97.9 08/04/17 12:00 Room Air 08/01/17 08:00 2.0 Intake and Output 08/04/17 08/05/17 19:00 07:00 Intake Total 720 ml 220 ml Output Total 600 ml Balance 720 ml -380 ml Intake Oral 720 ml 220 ml Output Urine Total 600 ml # Bowel Movements 1 Objective General Appearance: WD/WN, no apparent distress, alert, other - disheveled EENT: PERRL/EOMI, normal ENT inspection, TMs normal Neck: non-tender, normal alignment, supple, normal inspection Cardiovascular: normal peripheral pulses, normal rate, regular rhythm, no gallop/murmur, no JVD Respiratory/Chest: chest wall non-tender, lungs clear, normal breath sounds, no respiratory distress, no accessory muscle use Abdomen: normal bowel sounds, non tender, soft, no organomegaly, no mass Extremities: normal range of motion, non-tender 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 See ID note (2) Clostridium difficile diarrhea Assessment & Plan: S/P oral vanco Day #10 per ID (3) Failure to thrive (4) Cellulitis of right lower extremity Assessment & Plan: S/P antibiotic (5) Osteomyelitis Assessment & Plan: Right great toe. S/P antibiotic (6) Hemorrhage of gastrointestinal tract (7) Diabetes mellitus, type II Assessment & Plan: Continue novolog sliding scale. (8) HTN (hypertension) (9) Hypercholesteremia (10) S/P BKA (below knee amputation) unilateral (11) GERD (gastroesophageal reflux disease) (12) Gastritis (13) Fever Assessment & Plan: Low grade-see ID note. Assessment/Plan Discharge planning: [facility] when bed available. Daniel Tafoya MD August 05, 2017 19:40
[2017-08-05 20:26] VITALS: BP 127/71
[2017-08-06] VITALS (7 sets, daily range): BP systolic 117–150; BP diastolic 66–80
[2017-08-06] MEDS: sitaGLIPtin 50mg tab ORAL SCH (05:55)
[2017-08-06] MEDS: NovoLOG Insulin Flexpen SUBQ SCH ×4 (05:59→20:44)
[2017-08-06] MEDS: Heparin 5000 units/ml inj SUBQ SCH ×2 (08:26→20:45)
--- NOTE | 2017-08-06 11:26 | Infectious Diseases Prog Note ---
Assessment/Plan Assessment/Plan Assessment: Sepsis , SP Severe Cdiff; , resolved , s/p Rx -Cdiff + -CXR: Suggestion of mild basal atelectasis. Correlate clinically -u/a wbc 2/4, nit +, leuk +2; ucx mixed gram positive growth Bcx Neg Leukocytosis, SP Low grade fever, SP MENG, improving Recent Right foot cellulitis and right big toe. osteo , s/p Rx -MRI R foot: Findings suspicious for osteomyelitis of the distal aspect of the first distal phalanx -wound cx E.fecalis ([place] S), CoNS (likely represents colonizers) -RP : 2.4 => 07/02 : 0.4 -06/28 ESR : 74 => 07/02 : 31 Recent Coffee ground Emesis 2ry to diffuse gastitis -s/p EGD 07/08: Diffuse gastritis, status post biopsy, otherwise normal upper endoscopic examination. Diabetes. Hyperlipidemia. Hypertension. Left BKA. History of alcohol abuse and smoking until recently. chronic thrombosis of superficial femoral vein. Plan: - Monitor pt off of AB Rx - 07/31 PO Vancomycin 125mg qid abx d# 10 for C Diff. ( shorten AB Rx to 10 d , in view of rapid response ) - 07/22 SP PO Flagyl #2 - 07/21 SP IV Vanco and Unasyn x1 - 07/01 SP IV vancomycin and Ceftriaxone and Flagyl ( ABx d# 42/42 ) - 05/24 SP Cefepime #4 -Monitor CBC/BMP, temperatures -contact precautions -wound care/prevention per hospital protocol -discharge planning Subjective Allergies: Coded Allergies: No Known Allergies (Unverified , 11/16/14) Subjective afebrile no leukocytosis off abx discharge planning Objective Vital Signs Last 24 Hour Vital Signs Date Time Temp Pulse Resp B/P (MAP) Pulse Ox O2 Delivery O2 Flow Rate FiO2 08/06/17 08:00 98.0 70 20 117/66 99 98.0 08/06/17 04:40 88 138/80 Room Air 08/06/17 04:00 98.1 105 20 150/76 95 Room Air 98.1 08/06/17 00:40 97.9 75 18 124/70 98 97.9 08/06/17 00:40 Room Air 08/05/17 20:27 Room Air 08/05/17 20:26 96.8 68 17 127/71 97 96.8 08/05/17 16:00 97.9 76 19 135/87 98 97.9 08/05/17 12:00 97.9 69 18 139/80 97 97.9 Height (Feet): 5 Height (Inches): 5.00 Weight (Pounds): 135 Objective General Appearance: cachetic Lines, tubes and drains: peripheral HEENT: atraumatic, anicteric Neck: non-tender, normal alignment Respiratory/Chest: chest wall non-tender, lungs clear Cardiovascular/Chest: normal peripheral pulses, regular rhythm Abdomen: normal bowel sounds, non tender Skin Exam: no rash Current Medications Medications (Trade) Dose Ordered Sig/Caden Route PRN Reason Start Time Stop Time Status Last Admin Dose Admin Acetaminophen (Tylenol) 650 mg Q4H PRN ORAL fever 07/24/17 12:00 08/23/17 11:59 Al Hydroxide/Mg Hydroxide (Mylanta II) 30 ml Q6H PRN ORAL dyspepsia 07/24/17 12:00 08/23/17 11:59 Dextrose (Dextrose 50%) STAT PRN IV Hypoglycemia 07/24/17 12:00 08/23/17 11:59 Heparin Sodium (Porcine) (Heparin 5000 units/ml) 5,000 units EVERY 12 HOURS SUBQ 07/24/17 21:00 08/23/17 20:59 08/06/17 08:26 Insulin Aspart (NovoLOG) BEFORE MEALS AND HS SUBQ 07/23/17 21:00 08/21/17 06:29 08/06/17 05:59 Ondansetron HCl (Zofran) 4 mg Q6H PRN IVP Nausea & Vomiting 07/23/17 22:45 08/20/17 22:44 Pantoprazole (Protonix) 40 mg DAILY ORAL 07/25/17 09:00 08/24/17 08:59 08/06/17 08:23 Polyethylene Glycol (Miralax) 17 gm HSPRN PRN ORAL Constipation 07/23/17 22:45 08/20/17 22:44 Sitagliptin Phosphate (Januvia) 50 mg ACBREAKFAST ORAL 07/25/17 06:30 08/24/17 06:29 08/06/17 05:55 Dena Frank M.D. August 06, 2017 11:26
--- NOTE | 2017-08-06 14:55 | Pulmonology Progress Note ---
Assessment/Plan Problems: (1) Cellulitis of right lower extremity (2) Tachycardia (3) Sepsis Assessment/Plan VRE positiive med/surg wbc lower iv abx check electrolytes all reviewed Subjective ROS Limited/Unobtainable: No Allergies: Coded Allergies: No Known Allergies (Unverified , 11/16/14) Objective Last 24 Hour Vital Signs Date Time Temp Pulse Resp B/P (MAP) Pulse Ox O2 Delivery O2 Flow Rate FiO2 08/06/17 12:00 98.0 69 19 125/69 98 Room Air 98.0 08/06/17 08:00 98.0 70 20 117/66 99 98.0 08/06/17 04:40 88 138/80 Room Air 08/06/17 04:00 98.1 105 20 150/76 95 Room Air 98.1 08/06/17 00:40 97.9 75 18 124/70 98 97.9 08/06/17 00:40 Room Air 08/05/17 20:27 Room Air 08/05/17 20:26 96.8 68 17 127/71 97 96.8 08/05/17 16:00 97.9 76 19 135/87 98 97.9 Intake and Output 08/05/17 08/06/17 19:00 07:00 Intake Total 480 ml 120 ml Output Total 300 ml 100 ml Balance 180 ml 20 ml Intake Oral 480 ml 120 ml Output Urine Total 300 ml 100 ml # Bowel Movements 1 Objective General Appearance: WD/WN HEENT: normocephalic Respiratory/Chest: chest wall non-tender, lungs clear Cardiovascular: normal peripheral pulses, normal rate Abdomen: normal bowel sounds, soft, non tender Genitourinary: normal external genitalia Extremities: no clubbing 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 Current Medications Medications (Trade) Dose Ordered Sig/Caden Route PRN Reason Start Time Stop Time Status Last Admin Dose Admin Acetaminophen (Tylenol) 650 mg Q4H PRN ORAL fever 07/24/17 12:00 08/23/17 11:59 Al Hydroxide/Mg Hydroxide (Mylanta II) 30 ml Q6H PRN ORAL dyspepsia 07/24/17 12:00 08/23/17 11:59 Dextrose (Dextrose 50%) STAT PRN IV Hypoglycemia 07/24/17 12:00 08/23/17 11:59 Heparin Sodium (Porcine) (Heparin 5000 units/ml) 5,000 units EVERY 12 HOURS SUBQ 07/24/17 21:00 08/23/17 20:59 08/06/17 08:26 Insulin Aspart (NovoLOG) BEFORE MEALS AND HS SUBQ 07/23/17 21:00 08/21/17 06:29 08/06/17 12:30 Ondansetron HCl (Zofran) 4 mg Q6H PRN IVP Nausea & Vomiting 07/23/17 22:45 08/20/17 22:44 Pantoprazole (Protonix) 40 mg DAILY ORAL 07/25/17 09:00 08/24/17 08:59 08/06/17 08:23 Polyethylene Glycol (Miralax) 17 gm HSPRN PRN ORAL Constipation 07/23/17 22:45 08/20/17 22:44 Sitagliptin Phosphate (Januvia) 50 mg ACBREAKFAST ORAL 07/25/17 06:30 08/24/17 06:29 08/06/17 05:55 Kyra Massey MD August 06, 2017 14:55
--- NOTE | 2017-08-06 19:34 | Internal Med Progress Note ---
Subjective Date of Service: August 06, 2017 Physician Name Daniel Tafoya Attending Physician Tello Fay MD Current Medications Medications (Trade) Dose Ordered Sig/Caden Route PRN Reason Start Time Stop Time Status Last Admin Dose Admin Acetaminophen (Tylenol) 650 mg Q4H PRN ORAL fever 07/24/17 12:00 08/23/17 11:59 Al Hydroxide/Mg Hydroxide (Mylanta II) 30 ml Q6H PRN ORAL dyspepsia 07/24/17 12:00 08/23/17 11:59 Dextrose (Dextrose 50%) STAT PRN IV Hypoglycemia 07/24/17 12:00 08/23/17 11:59 Heparin Sodium (Porcine) (Heparin 5000 units/ml) 5,000 units EVERY 12 HOURS SUBQ 07/24/17 21:00 08/23/17 20:59 08/06/17 08:26 Insulin Aspart (NovoLOG) BEFORE MEALS AND HS SUBQ 07/23/17 21:00 08/21/17 06:29 08/06/17 16:49 Ondansetron HCl (Zofran) 4 mg Q6H PRN IVP Nausea & Vomiting 07/23/17 22:45 08/20/17 22:44 Pantoprazole (Protonix) 40 mg DAILY ORAL 07/25/17 09:00 08/24/17 08:59 08/06/17 08:23 Polyethylene Glycol (Miralax) 17 gm HSPRN PRN ORAL Constipation 07/23/17 22:45 08/20/17 22:44 Sitagliptin Phosphate (Januvia) 50 mg ACBREAKFAST ORAL 07/25/17 06:30 08/24/17 06:29 08/06/17 05:55 Allergies: Coded Allergies: No Known Allergies (Unverified , 11/16/14) ROS Limited/Unobtainable: No Constitutional: Reports: no symptoms HEENT: Reports: no symptoms Cardiovascular: Reports: no symptoms Respiratory: Reports: no symptoms Gastrointestinal/Abdominal: Reports: no symptoms Genitourinary: Reports: no symptoms Neurologic/Psychiatric: Reports: no symptoms Subjective 66 YO M admitted with C. Diff diarrhea. Cover for Int Med-Dr Fay. Await placement Objective Last Vital Signs Date Time Temp Pulse Resp B/P (MAP) Pulse Ox O2 Delivery O2 Flow Rate FiO2 08/06/17 16:00 98.0 66 20 134/72 97 Room Air 98.0 08/01/17 08:00 2.0 Intake and Output 08/05/17 08/06/17 19:00 07:00 Intake Total 480 ml 120 ml Output Total 300 ml 100 ml Balance 180 ml 20 ml Intake Oral 480 ml 120 ml Output Urine Total 300 ml 100 ml # Bowel Movements 1 Objective General Appearance: WD/WN, no apparent distress, alert, other - disheveled EENT: PERRL/EOMI, normal ENT inspection, TMs normal Neck: non-tender, normal alignment, supple, normal inspection Cardiovascular: normal peripheral pulses, normal rate, regular rhythm, no gallop/murmur, no JVD Respiratory/Chest: chest wall non-tender, lungs clear, normal breath sounds, no respiratory distress, no accessory muscle use Abdomen: normal bowel sounds, non tender, soft, no organomegaly, no mass Extremities: normal range of motion, non-tender 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 See ID note (2) Clostridium difficile diarrhea Assessment & Plan: S/P oral vanco Day #10 per ID (3) Failure to thrive (4) Cellulitis of right lower extremity Assessment & Plan: S/P antibiotic (5) Osteomyelitis Assessment & Plan: Right great toe. S/P antibiotic (6) Hemorrhage of gastrointestinal tract (7) Diabetes mellitus, type II Assessment & Plan: Continue novolog sliding scale. (8) HTN (hypertension) (9) Hypercholesteremia (10) S/P BKA (below knee amputation) unilateral (11) GERD (gastroesophageal reflux disease) (12) Gastritis (13) Fever Assessment & Plan: Low grade-see ID note. Assessment/Plan Discharge planning: [facility] when bed available. Daniel Tafoya MD August 06, 2017 19:34
[2017-08-07] VITALS: BP 132/74
[2017-08-07 04:00] VITALS: BP 135/75
[2017-08-07] MEDS: sitaGLIPtin 50mg tab ORAL SCH (06:29)
[2017-08-07] MEDS: NovoLOG Insulin Flexpen SUBQ SCH ×4 (06:29→21:12)
[2017-08-07 08:00] VITALS: BP 105/63
[2017-08-07] MEDS: Heparin 5000 units/ml inj SUBQ SCH ×2 (08:59→21:13)
[2017-08-07 12:00] VITALS: BP 118/70
--- NOTE | 2017-08-07 13:22 | Pulmonology Progress Note ---
Assessment/Plan Problems: (1) Cellulitis of right lower extremity (2) Tachycardia (3) Sepsis Assessment/Plan VRE positiive med/surg wbc lower iv abx check electrolytes all reviewed Subjective ROS Limited/Unobtainable: No Constitutional: Reports: no symptoms Respiratory: Reports: no symptoms Allergies: Coded Allergies: No Known Allergies (Unverified , 11/16/14) Objective Last 24 Hour Vital Signs Date Time Temp Pulse Resp B/P (MAP) Pulse Ox O2 Delivery O2 Flow Rate FiO2 08/07/17 12:00 99.5 80 19 118/70 94 99.5 08/07/17 08:00 98.2 74 19 105/63 98 98.2 08/07/17 04:00 97.7 77 20 135/75 98 Room Air 97.7 08/07/17 00:00 98.1 74 18 132/74 96 98.1 08/07/17 00:00 Room Air 08/06/17 20:00 Room Air 08/06/17 19:59 99.0 70 18 125/71 95 99.0 08/06/17 16:00 98.0 66 20 134/72 97 Room Air 98.0 Intake and Output 08/06/17 08/07/17 19:00 07:00 Intake Total 600 ml Balance 600 ml Intake Oral 600 ml # Voids 2 4 # Bowel Movements 1 6 Objective General Appearance: WD/WN HEENT: normocephalic Respiratory/Chest: chest wall non-tender, lungs clear Cardiovascular: normal peripheral pulses, normal rate Abdomen: normal bowel sounds, soft, non tender Genitourinary: normal external genitalia Extremities: no clubbing 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 Current Medications Medications (Trade) Dose Ordered Sig/Caden Route PRN Reason Start Time Stop Time Status Last Admin Dose Admin Acetaminophen (Tylenol) 650 mg Q4H PRN ORAL fever 07/24/17 12:00 08/23/17 11:59 Al Hydroxide/Mg Hydroxide (Mylanta II) 30 ml Q6H PRN ORAL dyspepsia 07/24/17 12:00 08/23/17 11:59 Dextrose (Dextrose 50%) STAT PRN IV Hypoglycemia 07/24/17 12:00 08/23/17 11:59 Heparin Sodium (Porcine) (Heparin 5000 units/ml) 5,000 units EVERY 12 HOURS SUBQ 07/24/17 21:00 08/23/17 20:59 08/07/17 08:59 Insulin Aspart (NovoLOG) BEFORE MEALS AND HS SUBQ 07/23/17 21:00 08/21/17 06:29 08/07/17 12:17 Ondansetron HCl (Zofran) 4 mg Q6H PRN IVP Nausea & Vomiting 07/23/17 22:45 08/20/17 22:44 Pantoprazole (Protonix) 40 mg DAILY ORAL 07/25/17 09:00 08/24/17 08:59 08/07/17 08:56 Polyethylene Glycol (Miralax) 17 gm HSPRN PRN ORAL Constipation 07/23/17 22:45 08/20/17 22:44 Sitagliptin Phosphate (Januvia) 50 mg ACBREAKFAST ORAL 07/25/17 06:30 08/24/17 06:29 08/07/17 06:29 Kyra Massey MD August 07, 2017 13:22
[2017-08-07 16:00] VITALS: BP 118/70
--- NOTE | 2017-08-07 16:05 | Internal Med Progress Note ---
Subjective Date of Service: August 07, 2017 Physician Name Daniel Tafoya Attending Physician Tello Fay MD Current Medications Medications (Trade) Dose Ordered Sig/Caden Route PRN Reason Start Time Stop Time Status Last Admin Dose Admin Acetaminophen (Tylenol) 650 mg Q4H PRN ORAL fever 07/24/17 12:00 08/23/17 11:59 Al Hydroxide/Mg Hydroxide (Mylanta II) 30 ml Q6H PRN ORAL dyspepsia 07/24/17 12:00 08/23/17 11:59 Dextrose (Dextrose 50%) STAT PRN IV Hypoglycemia 07/24/17 12:00 08/23/17 11:59 Heparin Sodium (Porcine) (Heparin 5000 units/ml) 5,000 units EVERY 12 HOURS SUBQ 07/24/17 21:00 08/23/17 20:59 08/07/17 08:59 Insulin Aspart (NovoLOG) BEFORE MEALS AND HS SUBQ 07/23/17 21:00 08/21/17 06:29 08/07/17 12:17 Ondansetron HCl (Zofran) 4 mg Q6H PRN IVP Nausea & Vomiting 07/23/17 22:45 08/20/17 22:44 Pantoprazole (Protonix) 40 mg DAILY ORAL 07/25/17 09:00 08/24/17 08:59 08/07/17 08:56 Polyethylene Glycol (Miralax) 17 gm HSPRN PRN ORAL Constipation 07/23/17 22:45 08/20/17 22:44 Sitagliptin Phosphate (Januvia) 50 mg ACBREAKFAST ORAL 07/25/17 06:30 08/24/17 06:29 08/07/17 06:29 Allergies: Coded Allergies: No Known Allergies (Unverified , 11/16/14) ROS Limited/Unobtainable: No Constitutional: Reports: no symptoms HEENT: Reports: no symptoms Cardiovascular: Reports: no symptoms Respiratory: Reports: no symptoms Gastrointestinal/Abdominal: Reports: no symptoms Genitourinary: Reports: no symptoms Neurologic/Psychiatric: Reports: no symptoms Subjective 66 YO M admitted with C. Diff diarrhea. Cover for Int Med-Dr Fay. Await placement Objective Last Vital Signs Date Time Temp Pulse Resp B/P (MAP) Pulse Ox O2 Delivery O2 Flow Rate FiO2 08/07/17 12:00 99.5 80 19 118/70 94 99.5 08/07/17 04:00 Room Air 08/01/17 08:00 2.0 Intake and Output 08/06/17 08/07/17 19:00 07:00 Intake Total 600 ml Balance 600 ml Intake Oral 600 ml # Voids 2 4 # Bowel Movements 1 6 Objective General Appearance: WD/WN, no apparent distress, alert, other - disheveled EENT: PERRL/EOMI, normal ENT inspection, TMs normal Neck: non-tender, normal alignment, supple, normal inspection Cardiovascular: normal peripheral pulses, normal rate, regular rhythm, no gallop/murmur, no JVD Respiratory/Chest: chest wall non-tender, lungs clear, normal breath sounds, no respiratory distress, no accessory muscle use Abdomen: normal bowel sounds, non tender, soft, no organomegaly, no mass Extremities: normal range of motion, non-tender 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 See ID note (2) Clostridium difficile diarrhea Assessment & Plan: S/P oral vanco Day #10/ per ID (3) Failure to thrive (4) Cellulitis of right lower extremity Assessment & Plan: S/P antibiotic (5) Osteomyelitis Assessment & Plan: Right great toe. S/P antibiotic (6) Hemorrhage of gastrointestinal tract (7) Diabetes mellitus, type II Assessment & Plan: Continue novolog sliding scale. (8) HTN (hypertension) (9) Hypercholesteremia (10) S/P BKA (below knee amputation) unilateral (11) GERD (gastroesophageal reflux disease) (12) Gastritis (13) Fever Assessment & Plan: Low grade-see ID note. Status: stable Assessment/Plan Discharge planning: [facility] when bed available. Daniel Tafoya MD August 07, 2017 16:05
[2017-08-07 20:00] VITALS: BP 124/69
[2017-08-08 04:00] VITALS: BP 130/78
[2017-08-08] MEDS: sitaGLIPtin 50mg tab ORAL SCH (05:56)
[2017-08-08] MEDS: NovoLOG Insulin Flexpen SUBQ SCH ×4 (06:04→20:24)
[2017-08-08] MEDS: Heparin 5000 units/ml inj SUBQ SCH ×2 (08:05→20:25)
[2017-08-08 08:40] VITALS: BP 101/63
[2017-08-08 12:31] VITALS: BP 111/69
--- NOTE | 2017-08-08 12:48 | Infectious Diseases Prog Note ---
Assessment/Plan Assessment/Plan Assessment: Sepsis , SP Severe Cdiff; , resolved , s/p Rx -Cdiff + -CXR: Suggestion of mild basal atelectasis. Correlate clinically -u/a wbc 2/4, nit +, leuk +2; ucx mixed gram positive growth Bcx Neg Leukocytosis, SP Low grade fever, SP MENG, improving Recent Right foot cellulitis and right big toe. osteo , s/p Rx -MRI R foot: Findings suspicious for osteomyelitis of the distal aspect of the first distal phalanx -wound cx E.fecalis ([place] S), CoNS (likely represents colonizers) -RP : 2.4 => 07/02 : 0.4 -06/28 ESR : 74 => 07/02 : 31 Recent Coffee ground Emesis 2ry to diffuse gastitis -s/p EGD 07/08: Diffuse gastritis, status post biopsy, otherwise normal upper endoscopic examination. Diabetes. Hyperlipidemia. Hypertension. Left BKA. History of alcohol abuse and smoking until recently. chronic thrombosis of superficial femoral vein. Plan: - Monitor pt off of AB Rx - 07/31 PO Vancomycin 125mg qid abx d# 10 / for C Diff. ( shorten AB Rx to 10 d , in view of rapid response ) - 07/22 SP PO Flagyl #2 - 07/21 SP IV Vanco and Unasyn x1 - 07/01 SP IV vancomycin and Ceftriaxone and Flagyl ( ABx d# 42/42 ) - 05/24 SP Cefepime #4 -Monitor CBC/BMP, temperatures -contact precautions -wound care/prevention per hospital protocol -discharge planning Subjective Allergies: Coded Allergies: No Known Allergies (Unverified , 11/16/14) Subjective afebrile no leukocytosis off abx discharge planning Objective Vital Signs Last 24 Hour Vital Signs Date Time Temp Pulse Resp B/P (MAP) Pulse Ox O2 Delivery O2 Flow Rate FiO2 08/08/17 12:31 97.6 74 16 111/69 98 97.6 08/08/17 08:40 97.4 74 18 101/63 98 97.4 08/08/17 04:00 98.0 77 20 130/78 98 98.0 08/08/17 04:00 Room Air 08/08/17 00:00 Room Air 08/07/17 20:00 Room Air 08/07/17 20:00 98.7 82 20 124/69 97 98.7 08/07/17 16:00 98.4 85 19 118/70 96 98.4 Height (Feet): 5 Height (Inches): 5.00 Weight (Pounds): 135 Objective General Appearance: cachetic Lines, tubes and drains: peripheral HEENT: atraumatic, anicteric Neck: non-tender, normal alignment Respiratory/Chest: chest wall non-tender, lungs clear Cardiovascular/Chest: normal peripheral pulses, regular rhythm Abdomen: normal bowel sounds, non tender Skin Exam: no rash Current Medications Medications (Trade) Dose Ordered Sig/Caden Route PRN Reason Start Time Stop Time Status Last Admin Dose Admin Acetaminophen (Tylenol) 650 mg Q4H PRN ORAL fever 07/24/17 12:00 08/23/17 11:59 Al Hydroxide/Mg Hydroxide (Mylanta II) 30 ml Q6H PRN ORAL dyspepsia 07/24/17 12:00 08/23/17 11:59 Dextrose (Dextrose 50%) STAT PRN IV Hypoglycemia 07/24/17 12:00 08/23/17 11:59 Heparin Sodium (Porcine) (Heparin 5000 units/ml) 5,000 units EVERY 12 HOURS SUBQ 07/24/17 21:00 08/23/17 20:59 08/08/17 08:05 Insulin Aspart (NovoLOG) BEFORE MEALS AND HS SUBQ 07/23/17 21:00 08/21/17 06:29 08/08/17 12:20 Ondansetron HCl (Zofran) 4 mg Q6H PRN IVP Nausea & Vomiting 07/23/17 22:45 08/20/17 22:44 Pantoprazole (Protonix) 40 mg DAILY ORAL 07/25/17 09:00 08/24/17 08:59 08/08/17 08:00 Polyethylene Glycol (Miralax) 17 gm HSPRN PRN ORAL Constipation 07/23/17 22:45 08/20/17 22:44 Sitagliptin Phosphate (Januvia) 50 mg ACBREAKFAST ORAL 07/25/17 06:30 08/24/17 06:29 08/08/17 05:56 Dena Frank M.D. August 08, 2017 12:48
[2017-08-08 16:18] VITALS: BP 104/62
--- NOTE | 2017-08-08 16:24 | Internal Med Progress Note ---
Subjective Date of Service: August 08, 2017 Physician Name Daniel Tafoya Attending Physician Tello Fay MD Current Medications Medications (Trade) Dose Ordered Sig/Caden Route PRN Reason Start Time Stop Time Status Last Admin Dose Admin Acetaminophen (Tylenol) 650 mg Q4H PRN ORAL fever 07/24/17 12:00 08/23/17 11:59 Al Hydroxide/Mg Hydroxide (Mylanta II) 30 ml Q6H PRN ORAL dyspepsia 07/24/17 12:00 08/23/17 11:59 Dextrose (Dextrose 50%) STAT PRN IV Hypoglycemia 07/24/17 12:00 08/23/17 11:59 Heparin Sodium (Porcine) (Heparin 5000 units/ml) 5,000 units EVERY 12 HOURS SUBQ 07/24/17 21:00 08/23/17 20:59 08/08/17 08:05 Insulin Aspart (NovoLOG) BEFORE MEALS AND HS SUBQ 07/23/17 21:00 08/21/17 06:29 08/08/17 12:20 Ondansetron HCl (Zofran) 4 mg Q6H PRN IVP Nausea & Vomiting 07/23/17 22:45 08/20/17 22:44 Pantoprazole (Protonix) 40 mg DAILY ORAL 07/25/17 09:00 08/24/17 08:59 08/08/17 08:00 Polyethylene Glycol (Miralax) 17 gm HSPRN PRN ORAL Constipation 07/23/17 22:45 08/20/17 22:44 Sitagliptin Phosphate (Januvia) 50 mg ACBREAKFAST ORAL 07/25/17 06:30 08/24/17 06:29 08/08/17 05:56 Allergies: Coded Allergies: No Known Allergies (Unverified , 11/16/14) ROS Limited/Unobtainable: No Constitutional: Reports: no symptoms HEENT: Reports: no symptoms Cardiovascular: Reports: no symptoms Respiratory: Reports: no symptoms Gastrointestinal/Abdominal: Reports: no symptoms Genitourinary: Reports: no symptoms Neurologic/Psychiatric: Reports: no symptoms Subjective 66 YO M admitted with C. Diff diarrhea. Cover for Int Med-Dr Fay. Await placement Objective Last Vital Signs Date Time Temp Pulse Resp B/P (MAP) Pulse Ox O2 Delivery O2 Flow Rate FiO2 08/08/17 16:18 98.0 84 18 104/62 97 98.0 08/08/17 04:00 Room Air 08/01/17 08:00 2.0 Intake and Output 08/07/17 08/08/17 19:00 07:00 Intake Total 480 ml 740 ml Output Total 500 ml 800 ml Balance -20 ml -60 ml Intake Oral 480 ml 740 ml Output Urine Total 500 ml 800 ml # Voids 2 # Bowel Movements 3 3 Objective General Appearance: WD/WN, no apparent distress, alert, other - disheveled EENT: PERRL/EOMI, normal ENT inspection, TMs normal Neck: non-tender, normal alignment, supple, normal inspection Cardiovascular: normal peripheral pulses, normal rate, regular rhythm, no gallop/murmur, no JVD Respiratory/Chest: chest wall non-tender, lungs clear, normal breath sounds, no respiratory distress, no accessory muscle use Abdomen: normal bowel sounds, non tender, soft, no organomegaly, no mass Extremities: normal range of motion, non-tender 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 See ID note (2) Clostridium difficile diarrhea Assessment & Plan: S/P oral vanco Day #10/10 per ID (3) Failure to thrive (4) Cellulitis of right lower extremity Assessment & Plan: S/P antibiotic (5) Osteomyelitis Assessment & Plan: Right great toe. S/P antibiotic (6) Hemorrhage of gastrointestinal tract (7) Diabetes mellitus, type II Assessment & Plan: Continue novolog sliding scale. (8) HTN (hypertension) (9) Hypercholesteremia (10) S/P BKA (below knee amputation) unilateral (11) GERD (gastroesophageal reflux disease) (12) Gastritis (13) Fever Assessment & Plan: Low grade-see ID note. Assessment/Plan Discharge planning: [facility] when bed available. Daniel Tafoya MD August 08, 2017 16:24
[2017-08-08 20:00] VITALS: BP 111/61
--- NOTE | 2017-08-08 20:42 | Pulmonology Progress Note ---
Assessment/Plan Problems: (1) Cellulitis of right lower extremity (2) Tachycardia (3) Sepsis Assessment/Plan VRE positiive med/surg wbc lower iv abx check electrolytes all reviewed Subjective ROS Limited/Unobtainable: No Allergies: Coded Allergies: No Known Allergies (Unverified , 11/16/14) Objective Last 24 Hour Vital Signs Date Time Temp Pulse Resp B/P (MAP) Pulse Ox O2 Delivery O2 Flow Rate FiO2 08/08/17 20:00 98.4 74 18 111/61 95 98.4 08/08/17 16:18 98.0 84 18 104/62 97 98.0 08/08/17 12:31 97.6 74 16 111/69 98 97.6 08/08/17 08:40 97.4 74 18 101/63 98 97.4 08/08/17 04:00 98.0 77 20 130/78 98 98.0 08/08/17 04:00 Room Air 08/08/17 00:00 Room Air Intake and Output 08/07/17 08/08/17 19:00 07:00 Intake Total 480 ml 740 ml Output Total 500 ml 800 ml Balance -20 ml -60 ml Intake Oral 480 ml 740 ml Output Urine Total 500 ml 800 ml # Voids 2 # Bowel Movements 3 3 Objective General Appearance: WD/WN HEENT: normocephalic Respiratory/Chest: chest wall non-tender, lungs clear Cardiovascular: normal peripheral pulses, normal rate Abdomen: normal bowel sounds, soft, non tender Genitourinary: normal external genitalia Extremities: no clubbing 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 Current Medications Medications (Trade) Dose Ordered Sig/Caden Route PRN Reason Start Time Stop Time Status Last Admin Dose Admin Acetaminophen (Tylenol) 650 mg Q4H PRN ORAL fever 07/24/17 12:00 08/23/17 11:59 Al Hydroxide/Mg Hydroxide (Mylanta II) 30 ml Q6H PRN ORAL dyspepsia 07/24/17 12:00 08/23/17 11:59 Dextrose (Dextrose 50%) STAT PRN IV Hypoglycemia 07/24/17 12:00 08/23/17 11:59 Heparin Sodium (Porcine) (Heparin 5000 units/ml) 5,000 units EVERY 12 HOURS SUBQ 07/24/17 21:00 6/11/18 20:59 08/08/17 20:25 Insulin Aspart (NovoLOG) BEFORE MEALS AND HS SUBQ 07/23/17 21:00 08/21/17 06:29 08/08/17 20:24 Ondansetron HCl (Zofran) 4 mg Q6H PRN IVP Nausea & Vomiting 07/23/17 22:45 08/20/17 22:44 Pantoprazole (Protonix) 40 mg DAILY ORAL 07/25/17 09:00 08/24/17 08:59 08/08/17 08:00 Polyethylene Glycol (Miralax) 17 gm HSPRN PRN ORAL Constipation 07/23/17 22:45 08/20/17 22:44 Sitagliptin Phosphate (Januvia) 50 mg ACBREAKFAST ORAL 07/25/17 06:30 08/24/17 06:29 08/08/17 05:56 Kyra Massey MD August 08, 2017 20:42
[2017-08-09] VITALS (7 sets, daily range): BP systolic 108–130; BP diastolic 59–78
[2017-08-09] MEDS: sitaGLIPtin 50mg tab ORAL SCH (05:49)
[2017-08-09] MEDS: NovoLOG Insulin Flexpen SUBQ SCH ×4 (05:54→21:01)
[2017-08-09] MEDS: Heparin 5000 units/ml inj SUBQ SCH ×2 (08:32→21:02)
--- NOTE | 2017-08-09 16:23 | Internal Med Progress Note ---
Subjective Date of Service: August 09, 2017 Physician Name Daniel Tafoya Attending Physician Tello Fay MD Current Medications Medications (Trade) Dose Ordered Sig/Caden Route PRN Reason Start Time Stop Time Status Last Admin Dose Admin Acetaminophen (Tylenol) 650 mg Q4H PRN ORAL fever 07/24/17 12:00 08/23/17 11:59 Al Hydroxide/Mg Hydroxide (Mylanta II) 30 ml Q6H PRN ORAL dyspepsia 07/24/17 12:00 08/23/17 11:59 Dextrose (Dextrose 50%) STAT PRN IV Hypoglycemia 07/24/17 12:00 08/23/17 11:59 Heparin Sodium (Porcine) (Heparin 5000 units/ml) 5,000 units EVERY 12 HOURS SUBQ 07/24/17 21:00 08/23/17 20:59 08/09/17 08:32 Insulin Aspart (NovoLOG) BEFORE MEALS AND HS SUBQ 07/23/17 21:00 08/21/17 06:29 08/09/17 12:08 Ondansetron HCl (Zofran) 4 mg Q6H PRN IVP Nausea & Vomiting 07/23/17 22:45 08/20/17 22:44 Pantoprazole (Protonix) 40 mg DAILY ORAL 07/25/17 09:00 08/24/17 08:59 08/09/17 08:32 Polyethylene Glycol (Miralax) 17 gm HSPRN PRN ORAL Constipation 07/23/17 22:45 08/20/17 22:44 Sitagliptin Phosphate (Januvia) 50 mg ACBREAKFAST ORAL 07/25/17 06:30 08/24/17 06:29 08/09/17 05:49 Allergies: Coded Allergies: No Known Allergies (Unverified , 11/16/14) ROS Limited/Unobtainable: No Constitutional: Reports: no symptoms HEENT: Reports: no symptoms Cardiovascular: Reports: no symptoms Respiratory: Reports: no symptoms Gastrointestinal/Abdominal: Reports: no symptoms Genitourinary: Reports: no symptoms Neurologic/Psychiatric: Reports: no symptoms Subjective 66 YO M admitted with C. Diff diarrhea. Cover for Int Med-Dr Fay. Await placement Objective Last Vital Signs Date Time Temp Pulse Resp B/P (MAP) Pulse Ox O2 Delivery O2 Flow Rate FiO2 08/09/17 12:00 Room Air 08/09/17 12:00 98.0 80 19 120/78 98 98.0 08/01/17 08:00 2.0 Intake and Output 08/08/17 08/09/17 19:00 07:00 Intake Total 720 ml 465 ml Output Total 400 ml 1600 ml Balance 320 ml -1135 ml Intake Oral 720 ml 465 ml Output Urine Total 400 ml 1600 ml # Bowel Movements 1 2 Objective General Appearance: WD/WN, no apparent distress, alert, other - disheveled EENT: PERRL/EOMI, normal ENT inspection, TMs normal Neck: non-tender, normal alignment, supple, normal inspection Cardiovascular: normal peripheral pulses, normal rate, regular rhythm, no gallop/murmur, no JVD Respiratory/Chest: chest wall non-tender, lungs clear, normal breath sounds, no respiratory distress, no accessory muscle use Abdomen: normal bowel sounds, non tender, soft, no organomegaly, no mass Extremities: normal range of motion, non-tender 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 See ID note (2) Clostridium difficile diarrhea Assessment & Plan: S/P oral vanco Day #10/10 per ID (3) Failure to thrive (4) Cellulitis of right lower extremity Assessment & Plan: S/P antibiotic (5) Osteomyelitis Assessment & Plan: Right great toe. S/P antibiotic (6) Hemorrhage of gastrointestinal tract (7) Diabetes mellitus, type II Assessment & Plan: Continue novolog sliding scale. (8) HTN (hypertension) (9) Hypercholesteremia (10) S/P BKA (below knee amputation) unilateral (11) GERD (gastroesophageal reflux disease) (12) Gastritis (13) Fever Assessment & Plan: Low grade-see ID note. Assessment/Plan Discharge planning: [facility] when bed available. Daniel Tafoya MD August 09, 2017 16:23
--- NOTE | 2017-08-09 16:47 | Infectious Diseases Prog Note ---
Assessment/Plan Assessment/Plan Assessment: Sepsis , SP Severe Cdiff; , resolved , s/p Rx -Cdiff + -CXR: Suggestion of mild basal atelectasis. Correlate clinically -u/a wbc 2/4, nit +, leuk +2; ucx mixed gram positive growth Bcx Neg Leukocytosis, SP Low grade fever, SP MENG, improving Recent Right foot cellulitis and right big toe. osteo , s/p Rx -MRI R foot: Findings suspicious for osteomyelitis of the distal aspect of the first distal phalanx -wound cx E.fecalis ([place] S), CoNS (likely represents colonizers) -RP : 2.4 => 07/02 : 0.4 -06/28 ESR : 74 => 07/02 : 31 Recent Coffee ground Emesis 2ry to diffuse gastitis -s/p EGD 07/08: Diffuse gastritis, status post biopsy, otherwise normal upper endoscopic examination. Diabetes. Hyperlipidemia. Hypertension. Left BKA. History of alcohol abuse and smoking until recently. chronic thrombosis of superficial femoral vein. Plan: - Monitor pt off of AB Rx - 07/31 PO Vancomycin 125mg qid abx d# 10 / for C Diff. ( shorten AB Rx to 10 d , in view of rapid response ) - 07/22 SP PO Flagyl #2 - 07/21 SP IV Vanco and Unasyn x1 - 07/01 SP IV vancomycin and Ceftriaxone and Flagyl ( ABx d# 42/42 ) - 05/24 SP Cefepime #4 -Monitor CBC/BMP, temperatures -contact precautions -wound care/prevention per hospital protocol -discharge planning Subjective Allergies: Coded Allergies: No Known Allergies (Unverified , 11/16/14) Subjective afebrile no leukocytosis off abx discharge planning Objective Vital Signs Last 24 Hour Vital Signs Date Time Temp Pulse Resp B/P (MAP) Pulse Ox O2 Delivery O2 Flow Rate FiO2 08/09/17 16:00 98.0 74 19 130/68 99 98.0 08/09/17 12:00 Room Air 08/09/17 12:00 98.0 80 19 120/78 98 98.0 08/09/17 08:00 98.0 80 20 130/70 98 98.0 08/09/17 08:00 Room Air 08/09/17 04:00 98.6 73 18 108/60 95 98.6 08/09/17 00:00 99.0 76 18 115/63 98 99.0 08/09/17 00:00 Room Air 08/08/17 20:00 Room Air 08/08/17 20:00 98.4 74 18 111/61 95 98.4 Height (Feet): 5 Height (Inches): 5.00 Weight (Pounds): 135 Objective General Appearance: cachetic Lines, tubes and drains: peripheral HEENT: atraumatic, anicteric Neck: non-tender, normal alignment Respiratory/Chest: chest wall non-tender, lungs clear Cardiovascular/Chest: normal peripheral pulses, regular rhythm Abdomen: normal bowel sounds, non tender Skin Exam: no rash Current Medications Medications (Trade) Dose Ordered Sig/Caden Route PRN Reason Start Time Stop Time Status Last Admin Dose Admin Acetaminophen (Tylenol) 650 mg Q4H PRN ORAL fever 07/24/17 12:00 08/23/17 11:59 Al Hydroxide/Mg Hydroxide (Mylanta II) 30 ml Q6H PRN ORAL dyspepsia 07/24/17 12:00 08/23/17 11:59 Dextrose (Dextrose 50%) STAT PRN IV Hypoglycemia 07/24/17 12:00 08/23/17 11:59 Heparin Sodium (Porcine) (Heparin 5000 units/ml) 5,000 units EVERY 12 HOURS SUBQ 07/24/17 21:00 08/23/17 20:59 08/09/17 08:32 Insulin Aspart (NovoLOG) BEFORE MEALS AND HS SUBQ 07/23/17 21:00 08/21/17 06:29 08/09/17 12:08 Ondansetron HCl (Zofran) 4 mg Q6H PRN IVP Nausea & Vomiting 07/23/17 22:45 08/20/17 22:44 Pantoprazole (Protonix) 40 mg DAILY ORAL 07/25/17 09:00 08/24/17 08:59 08/09/17 08:32 Polyethylene Glycol (Miralax) 17 gm HSPRN PRN ORAL Constipation 07/23/17 22:45 08/20/17 22:44 Sitagliptin Phosphate (Januvia) 50 mg ACBREAKFAST ORAL 07/25/17 06:30 08/24/17 06:29 08/09/17 05:49 Dena Frank M.D. August 09, 2017 16:47
--- NOTE | 2017-08-09 23:50 | Pulmonology Progress Note ---
Assessment/Plan Problems: (1) Cellulitis of right lower extremity (2) Tachycardia (3) Sepsis Assessment/Plan VRE positiive med/surg wbc lower iv abx check electrolytes all reviewed Subjective ROS Limited/Unobtainable: No Constitutional: Reports: no symptoms HEENT: Repors: no symptoms Respiratory: Reports: no symptoms Allergies: Coded Allergies: No Known Allergies (Unverified , 11/16/14) Objective Last 24 Hour Vital Signs Date Time Temp Pulse Resp B/P (MAP) Pulse Ox O2 Delivery O2 Flow Rate FiO2 08/09/17 19:44 97.9 63 20 124/69 97 Room Air 97.9 08/09/17 16:00 98.0 74 19 130/68 99 98.0 08/09/17 16:00 Room Air 08/09/17 12:00 Room Air 08/09/17 12:00 98.0 80 19 120/78 98 98.0 08/09/17 08:00 98.0 80 20 130/70 98 98.0 08/09/17 08:00 Room Air 08/09/17 04:00 98.6 73 18 108/60 95 98.6 08/09/17 00:00 99.0 76 18 115/63 98 99.0 08/09/17 00:00 Room Air Intake and Output 08/08/17 08/09/17 19:00 07:00 Intake Total 720 ml 465 ml Output Total 400 ml 1600 ml Balance 320 ml -1135 ml Intake Oral 720 ml 465 ml Output Urine Total 400 ml 1600 ml # Bowel Movements 1 2 Objective General Appearance: WD/WN HEENT: normocephalic Respiratory/Chest: chest wall non-tender, lungs clear Cardiovascular: normal peripheral pulses, normal rate Abdomen: normal bowel sounds, soft, non tender Genitourinary: normal external genitalia Extremities: no clubbing 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 Current Medications Medications (Trade) Dose Ordered Sig/Caden Route PRN Reason Start Time Stop Time Status Last Admin Dose Admin Acetaminophen (Tylenol) 650 mg Q4H PRN ORAL fever 07/24/17 12:00 08/23/17 11:59 Al Hydroxide/Mg Hydroxide (Mylanta II) 30 ml Q6H PRN ORAL dyspepsia 07/24/17 12:00 08/23/17 11:59 Dextrose (Dextrose 50%) STAT PRN IV Hypoglycemia 07/24/17 12:00 08/23/17 11:59 Heparin Sodium (Porcine) (Heparin 5000 units/ml) 5,000 units EVERY 12 HOURS SUBQ 07/24/17 21:00 08/23/17 20:59 08/09/17 21:02 Insulin Aspart (NovoLOG) BEFORE MEALS AND HS SUBQ 07/23/17 21:00 08/21/17 06:29 08/09/17 21:01 Ondansetron HCl (Zofran) 4 mg Q6H PRN IVP Nausea & Vomiting 07/23/17 22:45 08/20/17 22:44 Pantoprazole (Protonix) 40 mg DAILY ORAL 07/25/17 09:00 08/24/17 08:59 08/09/17 08:32 Polyethylene Glycol (Miralax) 17 gm HSPRN PRN ORAL Constipation 07/23/17 22:45 08/20/17 22:44 Sitagliptin Phosphate (Januvia) 50 mg ACBREAKFAST ORAL 07/25/17 06:30 08/24/17 06:29 08/09/17 05:49 Kyra Massey MD August 09, 2017 23:50
[2017-08-10] VITALS (7 sets, daily range): BP systolic 116–148; BP diastolic 68–83
[2017-08-10] MEDS: NovoLOG Insulin Flexpen SUBQ SCH ×4 (06:30→20:33)
[2017-08-10] MEDS: sitaGLIPtin 50mg tab ORAL SCH (06:33)
[2017-08-10] MEDS: Heparin 5000 units/ml inj SUBQ SCH ×2 (09:46→20:34)
--- NOTE | 2017-08-10 11:04 | Infectious Diseases Prog Note ---
Assessment/Plan Assessment/Plan Assessment: Sepsis , SP Severe Cdiff; , resolved , s/p Rx -Cdiff + -CXR: Suggestion of mild basal atelectasis. Correlate clinically -u/a wbc 2/4, nit +, leuk +2; ucx mixed gram positive growth Bcx Neg Leukocytosis, SP Low grade fever, SP MENG, improving Recent Right foot cellulitis and right big toe. osteo , s/p Rx -MRI R foot: Findings suspicious for osteomyelitis of the distal aspect of the first distal phalanx -wound cx E.fecalis ([place] S), CoNS (likely represents colonizers) -RP : 2.4 => 07/02 : 0.4 -06/28 ESR : 74 => 07/02 : 31 Recent Coffee ground Emesis 2ry to diffuse gastitis -s/p EGD 07/08: Diffuse gastritis, status post biopsy, otherwise normal upper endoscopic examination. Diabetes. Hyperlipidemia. Hypertension. Left BKA. History of alcohol abuse and smoking until recently. chronic thrombosis of superficial femoral vein. Plan: - Monitor pt off of AB Rx - 07/31 PO Vancomycin 125mg qid abx d# 10 / for C Diff. ( shorten AB Rx to 10 d , in view of rapid response ) - 07/22 SP PO Flagyl #2 - 07/21 SP IV Vanco and Unasyn x1 - 07/01 SP IV vancomycin and Ceftriaxone and Flagyl ( ABx d# 42/42 ) - 05/24 SP Cefepime #4 -Monitor CBC/BMP, temperatures -contact precautions -wound care/prevention per hospital protocol -discharge planning Subjective Allergies: Coded Allergies: No Known Allergies (Unverified , 11/16/14) Subjective afebrile no leukocytosis off abx discharge planning Objective Vital Signs Last 24 Hour Vital Signs Date Time Temp Pulse Resp B/P (MAP) Pulse Ox O2 Delivery O2 Flow Rate FiO2 08/10/17 08:00 97.5 77 18 130/74 99 97.5 08/10/17 04:02 97.5 73 20 118/79 97 Room Air 97.5 08/09/17 23:56 96.8 63 20 122/59 98 Room Air 96.8 08/09/17 19:44 97.9 63 20 124/69 97 Room Air 97.9 08/09/17 16:00 98.0 74 19 130/68 99 98.0 08/09/17 16:00 Room Air 08/09/17 12:00 Room Air 08/09/17 12:00 98.0 80 19 120/78 98 98.0 Height (Feet): 5 Height (Inches): 5.00 Weight (Pounds): 135 Objective General Appearance: cachetic Lines, tubes and drains: peripheral HEENT: atraumatic, anicteric Neck: non-tender, normal alignment Respiratory/Chest: chest wall non-tender, lungs clear Cardiovascular/Chest: normal peripheral pulses, regular rhythm Abdomen: normal bowel sounds, non tender Skin Exam: no rash Current Medications Medications (Trade) Dose Ordered Sig/Caden Route PRN Reason Start Time Stop Time Status Last Admin Dose Admin Acetaminophen (Tylenol) 650 mg Q4H PRN ORAL fever 07/24/17 12:00 08/23/17 11:59 Al Hydroxide/Mg Hydroxide (Mylanta II) 30 ml Q6H PRN ORAL dyspepsia 07/24/17 12:00 08/23/17 11:59 Dextrose (Dextrose 50%) STAT PRN IV Hypoglycemia 07/24/17 12:00 08/23/17 11:59 Heparin Sodium (Porcine) (Heparin 5000 units/ml) 5,000 units EVERY 12 HOURS SUBQ 07/24/17 21:00 08/23/17 20:59 08/10/17 09:46 Insulin Aspart (NovoLOG) BEFORE MEALS AND HS SUBQ 07/23/17 21:00 08/21/17 06:29 08/09/17 21:01 Ondansetron HCl (Zofran) 4 mg Q6H PRN IVP Nausea & Vomiting 07/23/17 22:45 08/20/17 22:44 Pantoprazole (Protonix) 40 mg DAILY ORAL 07/25/17 09:00 08/24/17 08:59 08/10/17 09:44 Polyethylene Glycol (Miralax) 17 gm HSPRN PRN ORAL Constipation 07/23/17 22:45 08/20/17 22:44 Sitagliptin Phosphate (Januvia) 50 mg ACBREAKFAST ORAL 07/25/17 06:30 08/24/17 06:29 08/10/17 06:33 Dena Frank M.D. August 10, 2017 11:04
--- NOTE | 2017-08-10 13:55 | Pulmonology Progress Note ---
Assessment/Plan Problems: (1) Cellulitis of right lower extremity (2) Tachycardia (3) Sepsis Assessment/Plan VRE positiive med/surg check electrolytes all reviewed Subjective ROS Limited/Unobtainable: No Constitutional: Reports: no symptoms HEENT: Repors: no symptoms Respiratory: Reports: no symptoms Allergies: Coded Allergies: No Known Allergies (Unverified , 11/16/14) Objective Last 24 Hour Vital Signs Date Time Temp Pulse Resp B/P (MAP) Pulse Ox O2 Delivery O2 Flow Rate FiO2 08/10/17 12:00 97.9 66 19 137/76 98 97.9 08/10/17 08:00 97.5 77 18 130/74 99 97.5 08/10/17 04:02 97.5 73 20 118/79 97 Room Air 97.5 08/09/17 23:56 96.8 63 20 122/59 98 Room Air 96.8 08/09/17 19:44 97.9 63 20 124/69 97 Room Air 97.9 08/09/17 16:00 98.0 74 19 130/68 99 98.0 08/09/17 16:00 Room Air Intake and Output 08/09/17 08/10/17 19:00 07:00 Intake Total 600 ml Output Total 200 ml Balance 400 ml Intake Oral 600 ml Output Urine Total 200 ml # Voids 2 3 # Bowel Movements 1 Objective General Appearance: WD/WN HEENT: normocephalic Respiratory/Chest: chest wall non-tender, lungs clear Cardiovascular: normal peripheral pulses, normal rate Abdomen: normal bowel sounds, soft, non tender Genitourinary: normal external genitalia Extremities: no clubbing 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 Current Medications Medications (Trade) Dose Ordered Sig/Caden Route PRN Reason Start Time Stop Time Status Last Admin Dose Admin Acetaminophen (Tylenol) 650 mg Q4H PRN ORAL fever 07/24/17 12:00 08/23/17 11:59 Al Hydroxide/Mg Hydroxide (Mylanta II) 30 ml Q6H PRN ORAL dyspepsia 07/24/17 12:00 08/23/17 11:59 Dextrose (Dextrose 50%) STAT PRN IV Hypoglycemia 07/24/17 12:00 08/23/17 11:59 Heparin Sodium (Porcine) (Heparin 5000 units/ml) 5,000 units EVERY 12 HOURS SUBQ 07/24/17 21:00 08/23/17 20:59 08/10/17 09:46 Insulin Aspart (NovoLOG) BEFORE MEALS AND HS SUBQ 07/23/17 21:00 08/21/17 06:29 08/10/17 11:50 Ondansetron HCl (Zofran) 4 mg Q6H PRN IVP Nausea & Vomiting 07/23/17 22:45 08/20/17 22:44 Pantoprazole (Protonix) 40 mg DAILY ORAL 07/25/17 09:00 08/24/17 08:59 08/10/17 09:44 Polyethylene Glycol (Miralax) 17 gm HSPRN PRN ORAL Constipation 07/23/17 22:45 08/20/17 22:44 Sitagliptin Phosphate (Januvia) 50 mg ACBREAKFAST ORAL 07/25/17 06:30 08/24/17 06:29 08/10/17 06:33 Kyra Massey MD August 10, 2017 13:55
[2017-08-10 16:53] LABS: BASOPHILS % (AUTO) 1.6 % (0.0-2.0); EOSINOPHILS % (AUTO) 4.2 % (0.0-3.0); HEMATOCRIT 32.9 % (42.0-52.0); HEMOGLOBIN 10.8 G/DL (14.2-18.0); LYMPHOCYTES % (AUTO) 43.7 % (20.0-45.0); MEAN CORPUSCULAR VOLUME 83 FL (80-99); NEUTROPHILS % (AUTO) 40.5 % (45.0-75.0); PLATELET COUNT 246 K/UL (150-450); RED BLOOD COUNT 3.97 M/UL (4.70-6.10); RED CELL DISTRIBUTION WIDTH 12.3 % (11.6-14.8)
--- NOTE | 2017-08-10 18:08 | Internal Med Progress Note ---
Subjective Date of Service: August 10, 2017 Physician Name Daniel Tafoya Attending Physician Tello Fay MD Current Medications Medications (Trade) Dose Ordered Sig/Caden Route PRN Reason Start Time Stop Time Status Last Admin Dose Admin Acetaminophen (Tylenol) 650 mg Q4H PRN ORAL fever 07/24/17 12:00 08/23/17 11:59 Al Hydroxide/Mg Hydroxide (Mylanta II) 30 ml Q6H PRN ORAL dyspepsia 07/24/17 12:00 08/23/17 11:59 Dextrose (Dextrose 50%) STAT PRN IV Hypoglycemia 07/24/17 12:00 08/23/17 11:59 Heparin Sodium (Porcine) (Heparin 5000 units/ml) 5,000 units EVERY 12 HOURS SUBQ 07/24/17 21:00 08/23/17 20:59 08/10/17 09:46 Insulin Aspart (NovoLOG) BEFORE MEALS AND HS SUBQ 07/23/17 21:00 08/21/17 06:29 08/10/17 17:42 Ondansetron HCl (Zofran) 4 mg Q6H PRN IVP Nausea & Vomiting 07/23/17 22:45 08/20/17 22:44 Pantoprazole (Protonix) 40 mg DAILY ORAL 07/25/17 09:00 08/24/17 08:59 08/10/17 09:44 Polyethylene Glycol (Miralax) 17 gm HSPRN PRN ORAL Constipation 07/23/17 22:45 08/20/17 22:44 Sitagliptin Phosphate (Januvia) 50 mg ACBREAKFAST ORAL 07/25/17 06:30 08/24/17 06:29 08/10/17 06:33 Allergies: Coded Allergies: No Known Allergies (Unverified , 11/16/14) ROS Limited/Unobtainable: No Constitutional: Reports: no symptoms HEENT: Reports: no symptoms Cardiovascular: Reports: no symptoms Respiratory: Reports: no symptoms Gastrointestinal/Abdominal: Reports: no symptoms Genitourinary: Reports: no symptoms Neurologic/Psychiatric: Reports: no symptoms Subjective 66 YO M admitted with C. Diff diarrhea. Cover for Int Med-Dr Fay. Await placement Objective Last Vital Signs Date Time Temp Pulse Resp B/P (MAP) Pulse Ox O2 Delivery O2 Flow Rate FiO2 08/10/17 16:00 98.0 70 20 132/78 98 98.0 08/10/17 12:00 Room Air 08/01/17 08:00 2.0 Laboratory Tests Test 08/10/17 16:15 White Blood Count 8.0 K/UL (4.8-10.8) Red Blood Count 3.97 M/UL (4.70-6.10) L Hemoglobin 10.8 G/DL (14.2-18.0) L Hematocrit 32.9 % (42.0-52.0) L Mean Corpuscular Volume 83 FL (80-99) Mean Corpuscular Hemoglobin 27.1 PG (27.0-31.0) Mean Corpuscular Hemoglobin Concent 32.7 G/DL (32.0-36.0) Red Cell Distribution Width 12.3 % (11.6-14.8) Platelet Count 246 K/UL (150-450) Mean Platelet Volume 9.5 FL (6.5-10.1) Neutrophils (%) (Auto) 40.5 % (45.0-75.0) L Lymphocytes (%) (Auto) 43.7 % (20.0-45.0) Monocytes (%) (Auto) 10.0 % (1.0-10.0) Eosinophils (%) (Auto) 4.2 % (0.0-3.0) H Basophils (%) (Auto) 1.6 % (0.0-2.0) Intake and Output 08/09/17 08/10/17 19:00 07:00 Intake Total 600 ml Output Total 200 ml Balance 400 ml Intake Oral 600 ml Output Urine Total 200 ml # Voids 2 3 # Bowel Movements 1 Objective General Appearance: WD/WN, no apparent distress, alert, other - disheveled EENT: PERRL/EOMI, normal ENT inspection, TMs normal Neck: non-tender, normal alignment, supple, normal inspection Cardiovascular: normal peripheral pulses, normal rate, regular rhythm, no gallop/murmur, no JVD Respiratory/Chest: chest wall non-tender, lungs clear, normal breath sounds, no respiratory distress, no accessory muscle use Abdomen: normal bowel sounds, non tender, soft, no organomegaly, no mass Extremities: normal range of motion, non-tender 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 See ID note (2) Clostridium difficile diarrhea Assessment & Plan: S/P oral vanco Day #10/ per ID (3) Failure to thrive (4) Cellulitis of right lower extremity Assessment & Plan: S/P antibiotic (5) Osteomyelitis Assessment & Plan: Right great toe. S/P antibiotic (6) Hemorrhage of gastrointestinal tract (7) Diabetes mellitus, type II Assessment & Plan: Continue novolog sliding scale. (8) HTN (hypertension) (9) Hypercholesteremia (10) S/P BKA (below knee amputation) unilateral (11) GERD (gastroesophageal reflux disease) (12) Gastritis (13) Fever Assessment & Plan: Low grade-see ID note. Status: stable Assessment/Plan Discharge planning: [facility] when bed available. Daniel Tafoya MD August 10, 2017 18:08
[2017-08-11 03:56] VITALS: BP 153/88
[2017-08-11] MEDS: sitaGLIPtin 50mg tab ORAL SCH (06:15)
[2017-08-11] MEDS: NovoLOG Insulin Flexpen SUBQ SCH ×4 (06:19→20:49)
[2017-08-11 08:00] VITALS: BP 102/66
[2017-08-11] MEDS: Heparin 5000 units/ml inj SUBQ SCH ×2 (09:15→20:48)
[2017-08-11 12:00] VITALS: BP 135/77
--- NOTE | 2017-08-11 14:36 | Infectious Diseases Prog Note ---
Assessment/Plan Assessment/Plan Assessment: Sepsis , SP Severe Cdiff; , resolved , s/p Rx -Cdiff + -CXR: Suggestion of mild basal atelectasis. Correlate clinically -u/a wbc 2/4, nit +, leuk +2; ucx mixed gram positive growth Bcx Neg Leukocytosis, SP Low grade fever, SP MENG, improving Recent Right foot cellulitis and right big toe. osteo , s/p Rx -MRI R foot: Findings suspicious for osteomyelitis of the distal aspect of the first distal phalanx -wound cx E.fecalis ([place] S), CoNS (likely represents colonizers) -RP : 2.4 => 07/02 : 0.4 -06/28 ESR : 74 => 07/02 : 31 Recent Coffee ground Emesis 2ry to diffuse gastitis -s/p EGD 07/08: Diffuse gastritis, status post biopsy, otherwise normal upper endoscopic examination. Diabetes. Hyperlipidemia. Hypertension. Left BKA. History of alcohol abuse and smoking until recently. chronic thrombosis of superficial femoral vein. Plan: - Monitor pt off of AB Rx - 07/31 PO Vancomycin 125mg qid abx d# 10 / for C Diff. ( shorten AB Rx to 10 d , in view of rapid response ) - 07/22 SP PO Flagyl #2 - 07/21 SP IV Vanco and Unasyn x1 - 07/01 SP IV vancomycin and Ceftriaxone and Flagyl ( ABx d# 42/42 ) - 05/24 SP Cefepime #4 -Monitor CBC/BMP, temperatures -contact precautions -wound care/prevention per hospital protocol -discharge planning Subjective Allergies: Coded Allergies: No Known Allergies (Unverified , 11/16/14) Subjective afebrile no leukocytosis off abx discharge planning Objective Vital Signs Last 24 Hour Vital Signs Date Time Temp Pulse Resp B/P (MAP) Pulse Ox O2 Delivery O2 Flow Rate FiO2 08/11/17 12:00 97.7 65 19 135/77 97 97.7 08/11/17 08:00 97.9 66 20 102/66 97 97.9 08/11/17 03:56 96.1 71 18 153/88 99 Room Air 96.1 08/10/17 23:42 96.7 66 18 116/68 99 Room Air 96.7 08/10/17 21:31 97.9 69 18 148/83 99 Room Air 97.9 08/10/17 20:00 97.9 69 18 148/83 99 Room Air 97.9 08/10/17 16:00 98.0 70 20 132/78 98 98.0 08/10/17 16:00 Room Air Height (Feet): 5 Height (Inches): 5.00 Weight (Pounds): 141 Objective General Appearance: cachetic Lines, tubes and drains: peripheral HEENT: atraumatic, anicteric Neck: non-tender, normal alignment Respiratory/Chest: chest wall non-tender, lungs clear Cardiovascular/Chest: normal peripheral pulses, regular rhythm Abdomen: normal bowel sounds, non tender Skin Exam: no rash Laboratory Tests Test 08/10/17 16:15 White Blood Count 8.0 K/UL (4.8-10.8) Red Blood Count 3.97 M/UL (4.70-6.10) L Hemoglobin 10.8 G/DL (14.2-18.0) L Hematocrit 32.9 % (42.0-52.0) L Mean Corpuscular Volume 83 FL (80-99) Mean Corpuscular Hemoglobin 27.1 PG (27.0-31.0) Mean Corpuscular Hemoglobin Concent 32.7 G/DL (32.0-36.0) Red Cell Distribution Width 12.3 % (11.6-14.8) Platelet Count 246 K/UL (150-450) Mean Platelet Volume 9.5 FL (6.5-10.1) Neutrophils (%) (Auto) 40.5 % (45.0-75.0) L Lymphocytes (%) (Auto) 43.7 % (20.0-45.0) Monocytes (%) (Auto) 10.0 % (1.0-10.0) Eosinophils (%) (Auto) 4.2 % (0.0-3.0) H Basophils (%) (Auto) 1.6 % (0.0-2.0) Current Medications Medications (Trade) Dose Ordered Sig/Caden Route PRN Reason Start Time Stop Time Status Last Admin Dose Admin Acetaminophen (Tylenol) 650 mg Q4H PRN ORAL fever 07/24/17 12:00 08/23/17 11:59 Al Hydroxide/Mg Hydroxide (Mylanta II) 30 ml Q6H PRN ORAL dyspepsia 07/24/17 12:00 08/23/17 11:59 Dextrose (Dextrose 50%) STAT PRN IV Hypoglycemia 07/24/17 12:00 08/23/17 11:59 Heparin Sodium (Porcine) (Heparin 5000 units/ml) 5,000 units EVERY 12 HOURS SUBQ 07/24/17 21:00 08/23/17 20:59 08/11/17 09:15 Insulin Aspart (NovoLOG) BEFORE MEALS AND HS SUBQ 07/23/17 21:00 08/21/17 06:29 08/11/17 11:23 Ondansetron HCl (Zofran) 4 mg Q6H PRN IVP Nausea & Vomiting 07/23/17 22:45 08/20/17 22:44 Pantoprazole (Protonix) 40 mg DAILY ORAL 07/25/17 09:00 08/24/17 08:59 08/11/17 09:14 Polyethylene Glycol (Miralax) 17 gm HSPRN PRN ORAL Constipation 07/23/17 22:45 08/20/17 22:44 Sitagliptin Phosphate (Januvia) 50 mg ACBREAKFAST ORAL 07/25/17 06:30 08/24/17 06:29 08/11/17 06:15 Dena Frank M.D. August 11, 2017 14:35
--- NOTE | 2017-08-11 14:56 | Pulmonology Progress Note ---
Assessment/Plan Problems: (1) Cellulitis of right lower extremity (2) Tachycardia (3) Sepsis Assessment/Plan VRE positiive med/surg check electrolytes all reviewed Subjective ROS Limited/Unobtainable: No Constitutional: Reports: no symptoms HEENT: Repors: no symptoms Respiratory: Reports: no symptoms Allergies: Coded Allergies: No Known Allergies (Unverified , 11/16/14) Objective Last 24 Hour Vital Signs Date Time Temp Pulse Resp B/P (MAP) Pulse Ox O2 Delivery O2 Flow Rate FiO2 08/11/17 12:00 97.7 65 19 135/77 97 97.7 08/11/17 08:00 97.9 66 20 102/66 97 97.9 08/11/17 03:56 96.1 71 18 153/88 99 Room Air 96.1 08/10/17 23:42 96.7 66 18 116/68 99 Room Air 96.7 08/10/17 21:31 97.9 69 18 148/83 99 Room Air 97.9 08/10/17 20:00 97.9 69 18 148/83 99 Room Air 97.9 08/10/17 16:00 98.0 70 20 132/78 98 98.0 08/10/17 16:00 Room Air Intake and Output 08/10/17 08/11/17 18:59 06:59 Intake Total 300 ml 275 ml Output Total 400 ml 420 ml Balance -100 ml -145 ml Intake Oral 300 ml 275 ml Output Urine Total 400 ml 420 ml # Voids 2 Objective General Appearance: WD/WN HEENT: normocephalic Respiratory/Chest: chest wall non-tender, lungs clear Cardiovascular: normal peripheral pulses, normal rate Abdomen: normal bowel sounds, soft, non tender Genitourinary: normal external genitalia Extremities: no clubbing 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 Laboratory Tests 08/10/17 16:15: White Blood Count 8.0, Red Blood Count 3.97L, Hemoglobin 10.8L, Hematocrit 32.9L , Mean Corpuscular Volume 83, Mean Corpuscular Hemoglobin 27.1, Mean Corpuscular Hemoglobin Concent 32.7, Red Cell Distribution Width 12.3, Platelet Count 246, Mean Platelet Volume 9.5, Neutrophils (%) (Auto) 40.5L, Lymphocytes ( %) (Auto) 43.7, Monocytes (%) (Auto) 10.0, Eosinophils (%) (Auto) 4.2H, Basophils (%) (Auto) 1.6 Current Medications Medications (Trade) Dose Ordered Sig/Caden Route PRN Reason Start Time Stop Time Status Last Admin Dose Admin Acetaminophen (Tylenol) 650 mg Q4H PRN ORAL fever 07/24/17 12:00 08/23/17 11:59 Al Hydroxide/Mg Hydroxide (Mylanta II) 30 ml Q6H PRN ORAL dyspepsia 07/24/17 12:00 08/23/17 11:59 Dextrose (Dextrose 50%) STAT PRN IV Hypoglycemia 07/24/17 12:00 08/23/17 11:59 Heparin Sodium (Porcine) (Heparin 5000 units/ml) 5,000 units EVERY 12 HOURS SUBQ 07/24/17 21:00 08/23/17 20:59 08/11/17 09:15 Insulin Aspart (NovoLOG) BEFORE MEALS AND HS SUBQ 07/23/17 21:00 08/21/17 06:29 08/11/17 11:23 Ondansetron HCl (Zofran) 4 mg Q6H PRN IVP Nausea & Vomiting 07/23/17 22:45 08/20/17 22:44 Pantoprazole (Protonix) 40 mg DAILY ORAL 07/25/17 09:00 08/24/17 08:59 08/11/17 09:14 Polyethylene Glycol (Miralax) 17 gm HSPRN PRN ORAL Constipation 07/23/17 22:45 08/20/17 22:44 Sitagliptin Phosphate (Januvia) 50 mg ACBREAKFAST ORAL 07/25/17 06:30 08/24/17 06:29 08/11/17 06:15 Kyra Massey MD August 11, 2017 14:56
[2017-08-11 16:00] VITALS: BP 140/74
--- NOTE | 2017-08-11 19:19 | Internal Med Progress Note ---
Subjective Date of Service: August 11, 2017 Physician Name Daniel Tafoya Attending Physician Tello Fay MD Current Medications Medications (Trade) Dose Ordered Sig/Caden Route PRN Reason Start Time Stop Time Status Last Admin Dose Admin Acetaminophen (Tylenol) 650 mg Q4H PRN ORAL fever 07/24/17 12:00 08/23/17 11:59 Al Hydroxide/Mg Hydroxide (Mylanta II) 30 ml Q6H PRN ORAL dyspepsia 07/24/17 12:00 08/23/17 11:59 Dextrose (Dextrose 50%) STAT PRN IV Hypoglycemia 07/24/17 12:00 08/23/17 11:59 Heparin Sodium (Porcine) (Heparin 5000 units/ml) 5,000 units EVERY 12 HOURS SUBQ 07/24/17 21:00 08/23/17 20:59 08/11/17 09:15 Insulin Aspart (NovoLOG) BEFORE MEALS AND HS SUBQ 07/23/17 21:00 08/21/17 06:29 08/11/17 11:23 Ondansetron HCl (Zofran) 4 mg Q6H PRN IVP Nausea & Vomiting 07/23/17 22:45 08/20/17 22:44 Pantoprazole (Protonix) 40 mg DAILY ORAL 07/25/17 09:00 08/24/17 08:59 08/11/17 09:14 Polyethylene Glycol (Miralax) 17 gm HSPRN PRN ORAL Constipation 07/23/17 22:45 08/20/17 22:44 Sitagliptin Phosphate (Januvia) 50 mg ACBREAKFAST ORAL 07/25/17 06:30 08/24/17 06:29 08/11/17 06:15 Allergies: Coded Allergies: No Known Allergies (Unverified , 11/16/14) ROS Limited/Unobtainable: No Constitutional: Reports: no symptoms HEENT: Reports: no symptoms Cardiovascular: Reports: no symptoms Respiratory: Reports: no symptoms Gastrointestinal/Abdominal: Reports: no symptoms Genitourinary: Reports: no symptoms Neurologic/Psychiatric: Reports: no symptoms Subjective 66 YO M admitted with C. Diff diarrhea. Cover for Int Med-Dr Fay. Await placement Objective Last Vital Signs Date Time Temp Pulse Resp B/P (MAP) Pulse Ox O2 Delivery O2 Flow Rate FiO2 08/11/17 16:00 98.1 68 20 140/74 98 98.1 08/11/17 03:56 Room Air Intake and Output 08/10/17 08/11/17 19:00 07:00 Intake Total 300 ml 275 ml Output Total 400 ml 420 ml Balance -100 ml -145 ml Intake Oral 300 ml 275 ml Output Urine Total 400 ml 420 ml # Voids 2 Objective General Appearance: WD/WN, no apparent distress, alert, other - disheveled EENT: PERRL/EOMI, normal ENT inspection, TMs normal Neck: non-tender, normal alignment, supple, normal inspection Cardiovascular: normal peripheral pulses, normal rate, regular rhythm, no gallop/murmur, no JVD Respiratory/Chest: chest wall non-tender, lungs clear, normal breath sounds, no respiratory distress, no accessory muscle use Abdomen: normal bowel sounds, non tender, soft, no organomegaly, no mass Extremities: normal range of motion, non-tender 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 See ID note (2) Clostridium difficile diarrhea Assessment & Plan: S/P oral vanco Day #10 per ID (3) Failure to thrive (4) Cellulitis of right lower extremity Assessment & Plan: S/P antibiotic (5) Osteomyelitis Assessment & Plan: Right great toe. S/P antibiotic (6) Hemorrhage of gastrointestinal tract (7) Diabetes mellitus, type II Assessment & Plan: Continue novolog sliding scale. (8) HTN (hypertension) (9) Hypercholesteremia (10) S/P BKA (below knee amputation) unilateral (11) GERD (gastroesophageal reflux disease) (12) Gastritis (13) Fever Assessment & Plan: Low grade-see ID note. Assessment/Plan Discharge planning: [facility] when bed available. Daniel Tafoya MD August 11, 2017 19:19
[2017-08-11 19:44] VITALS: BP 144/78
[2017-08-12] VITALS: BP 115/67
[2017-08-12 04:00] VITALS: BP 120/70
[2017-08-12] MEDS: sitaGLIPtin 50mg tab ORAL SCH (05:40)
[2017-08-12] MEDS: NovoLOG Insulin Flexpen SUBQ SCH ×4 (05:41→21:14)
[2017-08-12 08:00] VITALS: BP 144/74
[2017-08-12] MEDS: Heparin 5000 units/ml inj SUBQ SCH ×2 (09:02→21:17)
[2017-08-12 11:42] VITALS: BP 132/75
--- NOTE | 2017-08-12 14:31 | Pulmonology Progress Note ---
Assessment/Plan Problems: (1) Cellulitis of right lower extremity (2) Tachycardia (3) Sepsis Assessment/Plan VRE positiive med/surg check electrolytes all reviewed Subjective ROS Limited/Unobtainable: No Allergies: Coded Allergies: No Known Allergies (Unverified , 11/16/14) Objective Last 24 Hour Vital Signs Date Time Temp Pulse Resp B/P (MAP) Pulse Ox O2 Delivery O2 Flow Rate FiO2 08/12/17 11:42 96.1 66 20 132/75 98 96.1 08/12/17 08:00 96.4 69 20 144/74 98 96.4 08/12/17 04:00 98.0 63 18 120/70 98 98.0 08/12/17 00:00 97.9 75 18 115/67 99 97.9 08/11/17 19:44 98.1 69 18 144/78 98 98.1 08/11/17 16:00 98.1 68 20 140/74 98 98.1 Intake and Output 08/11/17 08/12/17 19:00 07:00 Intake Total 1020 ml 320 ml Output Total 900 ml Balance 1020 ml -580 ml Intake Oral 1020 ml 320 ml Output Urine Total 900 ml # Voids 5 # Bowel Movements 1 Objective General Appearance: WD/WN HEENT: normocephalic Respiratory/Chest: chest wall non-tender, lungs clear Cardiovascular: normal peripheral pulses, normal rate Abdomen: normal bowel sounds, soft, non tender Genitourinary: normal external genitalia Extremities: no clubbing 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 Current Medications Medications (Trade) Dose Ordered Sig/Caden Route PRN Reason Start Time Stop Time Status Last Admin Dose Admin Acetaminophen (Tylenol) 650 mg Q4H PRN ORAL fever 07/24/17 12:00 08/23/17 11:59 Al Hydroxide/Mg Hydroxide (Mylanta II) 30 ml Q6H PRN ORAL dyspepsia 07/24/17 12:00 08/23/17 11:59 Dextrose (Dextrose 50%) STAT PRN IV Hypoglycemia 07/24/17 12:00 08/23/17 11:59 Heparin Sodium (Porcine) (Heparin 5000 units/ml) 5,000 units EVERY 12 HOURS SUBQ 07/24/17 21:00 08/23/17 20:59 08/12/17 09:02 Insulin Aspart (NovoLOG) BEFORE MEALS AND HS SUBQ 07/23/17 21:00 08/21/17 06:29 08/12/17 11:54 Ondansetron HCl (Zofran) 4 mg Q6H PRN IVP Nausea & Vomiting 07/23/17 22:45 08/20/17 22:44 Pantoprazole (Protonix) 40 mg DAILY ORAL 07/25/17 09:00 08/24/17 08:59 08/12/17 09:01 Polyethylene Glycol (Miralax) 17 gm HSPRN PRN ORAL Constipation 07/23/17 22:45 08/20/17 22:44 Sitagliptin Phosphate (Januvia) 50 mg ACBREAKFAST ORAL 07/25/17 06:30 08/24/17 06:29 08/12/17 05:40 Kyra Massey MD August 12, 2017 14:31
[2017-08-12 15:50] VITALS: BP 149/88
--- NOTE | 2017-08-12 18:08 | Internal Med Progress Note ---
Subjective Date of Service: August 12, 2017 Physician Name Daniel Tafoya Attending Physician Tello Fay MD Current Medications Medications (Trade) Dose Ordered Sig/Caden Route PRN Reason Start Time Stop Time Status Last Admin Dose Admin Acetaminophen (Tylenol) 650 mg Q4H PRN ORAL fever 07/24/17 12:00 08/23/17 11:59 Al Hydroxide/Mg Hydroxide (Mylanta II) 30 ml Q6H PRN ORAL dyspepsia 07/24/17 12:00 08/23/17 11:59 Dextrose (Dextrose 50%) STAT PRN IV Hypoglycemia 07/24/17 12:00 08/23/17 11:59 Heparin Sodium (Porcine) (Heparin 5000 units/ml) 5,000 units EVERY 12 HOURS SUBQ 07/24/17 21:00 08/23/17 20:59 08/12/17 09:02 Insulin Aspart (NovoLOG) BEFORE MEALS AND HS SUBQ 07/23/17 21:00 08/21/17 06:29 08/12/17 17:35 Ondansetron HCl (Zofran) 4 mg Q6H PRN IVP Nausea & Vomiting 07/23/17 22:45 08/20/17 22:44 Pantoprazole (Protonix) 40 mg DAILY ORAL 07/25/17 09:00 08/24/17 08:59 08/12/17 09:01 Polyethylene Glycol (Miralax) 17 gm HSPRN PRN ORAL Constipation 07/23/17 22:45 08/20/17 22:44 Sitagliptin Phosphate (Januvia) 50 mg ACBREAKFAST ORAL 07/25/17 06:30 08/24/17 06:29 08/12/17 05:40 Allergies: Coded Allergies: No Known Allergies (Unverified , 11/16/14) ROS Limited/Unobtainable: No Constitutional: Reports: no symptoms HEENT: Reports: no symptoms Cardiovascular: Reports: no symptoms Respiratory: Reports: no symptoms Gastrointestinal/Abdominal: Reports: no symptoms Genitourinary: Reports: no symptoms Neurologic/Psychiatric: Reports: no symptoms Subjective 66 YO M admitted with C. Diff diarrhea. Cover for Int Med-Dr Fay. Await placement Objective Last Vital Signs Date Time Temp Pulse Resp B/P (MAP) Pulse Ox O2 Delivery O2 Flow Rate FiO2 08/12/17 15:50 97.2 68 20 149/88 98 97.2 08/12/17 11:42 Room Air Intake and Output 08/11/17 08/12/17 19:00 07:00 Intake Total 1020 ml 320 ml Output Total 900 ml Balance 1020 ml -580 ml Intake Oral 1020 ml 320 ml Output Urine Total 900 ml # Voids 5 # Bowel Movements 1 Objective General Appearance: WD/WN, no apparent distress, alert, other - disheveled EENT: PERRL/EOMI, normal ENT inspection, TMs normal Neck: non-tender, normal alignment, supple, normal inspection Cardiovascular: normal peripheral pulses, normal rate, regular rhythm, no gallop/murmur, no JVD Respiratory/Chest: chest wall non-tender, lungs clear, normal breath sounds, no respiratory distress, no accessory muscle use Abdomen: normal bowel sounds, non tender, soft, no organomegaly, no mass Extremities: normal range of motion, non-tender Neurologic: rn on site II-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 See ID note (2) Clostridium difficile diarrhea Assessment & Plan: S/P oral vanco Day #10/ per ID (3) Failure to thrive (4) Cellulitis of right lower extremity Assessment & Plan: S/P antibiotic (5) Osteomyelitis Assessment & Plan: Right great toe. S/P antibiotic (6) Hemorrhage of gastrointestinal tract (7) Diabetes mellitus, type II Assessment & Plan: Continue novolog sliding scale. (8) HTN (hypertension) (9) Hypercholesteremia (10) S/P BKA (below knee amputation) unilateral (11) GERD (gastroesophageal reflux disease) (12) Gastritis (13) Fever Assessment & Plan: Low grade-see ID note. Status: progressing Assessment/Plan Discharge planning: [facility] when bed available. Daniel Tafoya MD August 12, 2017 18:07
[2017-08-12 20:00] VITALS: BP 105/62
[2017-08-13] VITALS: BP 109/63
[2017-08-13 04:00] VITALS: BP 121/72
[2017-08-13] MEDS: sitaGLIPtin 50mg tab ORAL SCH (05:43)
[2017-08-13] MEDS: NovoLOG Insulin Flexpen SUBQ SCH ×4 (05:45→22:24)
[2017-08-13 08:00] VITALS: BP 116/66
[2017-08-13] MEDS: Heparin 5000 units/ml inj SUBQ SCH ×2 (09:13→22:25)
[2017-08-13 12:00] VITALS: BP 138/78
--- NOTE | 2017-08-13 15:57 | Internal Med Progress Note ---
Subjective Date of Service: Aug 13, 2017 Physician Name Daniel Tafoya Attending Physician Tello Fay MD Current Medications Medications (Trade) Dose Ordered Sig/Caden Route PRN Reason Start Time Stop Time Status Last Admin Dose Admin Acetaminophen (Tylenol) 650 mg Q4H PRN ORAL fever 07/24/17 12:00 08/23/17 11:59 Al Hydroxide/Mg Hydroxide (Mylanta II) 30 ml Q6H PRN ORAL dyspepsia 07/24/17 12:00 08/23/17 11:59 Dextrose (Dextrose 50%) STAT PRN IV Hypoglycemia 07/24/17 12:00 08/23/17 11:59 Heparin Sodium (Porcine) (Heparin 5000 units/ml) 5,000 units EVERY 12 HOURS SUBQ 07/24/17 21:00 08/23/17 20:59 08/13/17 09:13 Insulin Aspart (NovoLOG) BEFORE MEALS AND HS SUBQ 07/23/17 21:00 08/21/17 06:29 08/13/17 12:36 Ondansetron HCl (Zofran) 4 mg Q6H PRN IVP Nausea & Vomiting 07/23/17 22:45 08/20/17 22:44 Pantoprazole (Protonix) 40 mg DAILY ORAL 07/25/17 09:00 08/24/17 08:59 08/13/17 09:11 Polyethylene Glycol (Miralax) 17 gm HSPRN PRN ORAL Constipation 07/23/17 22:45 08/20/17 22:44 Sitagliptin Phosphate (Januvia) 50 mg ACBREAKFAST ORAL 07/25/17 06:30 08/24/17 06:29 08/13/17 05:43 Allergies: Coded Allergies: No Known Allergies (Unverified , 11/16/14) ROS Limited/Unobtainable: No Constitutional: Reports: no symptoms HEENT: Reports: no symptoms Cardiovascular: Reports: no symptoms Respiratory: Reports: no symptoms Gastrointestinal/Abdominal: Reports: no symptoms Genitourinary: Reports: no symptoms Neurologic/Psychiatric: Reports: no symptoms Subjective 66 YO M admitted with C. Diff diarrhea. Cover for Int Med-Dr Fay. Await placement Objective Last Vital Signs Date Time Temp Pulse Resp B/P (MAP) Pulse Ox O2 Delivery O2 Flow Rate FiO2 08/13/17 12:00 97.5 70 19 138/78 98 97.5 08/13/17 04:00 Room Air Intake and Output 08/12/17 08/13/17 19:00 07:00 Intake Total 620 ml Output Total 650 ml 400 ml Balance -30 ml -400 ml Intake Oral 620 ml Output Urine Total 650 ml 400 ml Objective General Appearance: WD/WN, no apparent distress, alert, other - disheveled EENT: PERRL/EOMI, normal ENT inspection, TMs normal Neck: non-tender, normal alignment, supple, normal inspection Cardiovascular: normal peripheral pulses, normal rate, regular rhythm, no gallop/murmur, no JVD Respiratory/Chest: chest wall non-tender, lungs clear, normal breath sounds, no respiratory distress, no accessory muscle use Abdomen: normal bowel sounds, non tender, soft, no organomegaly, no mass Extremities: normal range of motion, non-tender 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 See ID note (2) Clostridium difficile diarrhea Assessment & Plan: S/P oral vanco Day #10/ per ID (3) Failure to thrive (4) Cellulitis of right lower extremity Assessment & Plan: S/P antibiotic (5) Osteomyelitis Assessment & Plan: Right great toe. S/P antibiotic (6) Hemorrhage of gastrointestinal tract (7) Diabetes mellitus, type II Assessment & Plan: Continue novolog sliding scale. (8) HTN (hypertension) (9) Hypercholesteremia (10) S/P BKA (below knee amputation) unilateral (11) GERD (gastroesophageal reflux disease) (12) Gastritis (13) Fever Assessment & Plan: Low grade-see ID note. Assessment/Plan Discharge planning: [facility] when bed available. Daniel Tafoya MD Aug 13, 2017 15:57
[2017-08-13 16:00] VITALS: BP 135/80
--- NOTE | 2017-08-13 18:27 | Infectious Diseases Prog Note ---
Assessment/Plan Assessment/Plan Assessment: Sepsis , SP Severe Cdiff; , resolved , s/p Rx -Cdiff + -CXR: Suggestion of mild basal atelectasis. Correlate clinically -u/a wbc 2/4, nit +, leuk +2; ucx mixed gram positive growth Bcx Neg Leukocytosis, SP Low grade fever, SP MENG, improving Recent Right foot cellulitis and right big toe. osteo , s/p Rx -MRI R foot: Findings suspicious for osteomyelitis of the distal aspect of the first distal phalanx -wound cx E.fecalis ([place] S), CoNS (likely represents colonizers) -RP : 2.4 => 07/02 : 0.4 -06/28 ESR : 74 => 07/02 : 31 Recent Coffee ground Emesis 2ry to diffuse gastitis -s/p EGD 07/08: Diffuse gastritis, status post biopsy, otherwise normal upper endoscopic examination. Diabetes. Hyperlipidemia. Hypertension. Left BKA. History of alcohol abuse and smoking until recently. chronic thrombosis of superficial femoral vein. Plan: - Monitor pt off of AB Rx - 07/31 PO Vancomycin 125mg qid abx d# 10 / for C Diff. ( shorten AB Rx to 10 d , in view of rapid response ) - 07/22 SP PO Flagyl #2 - 07/21 SP IV Vanco and Unasyn x1 - 07/01 SP IV vancomycin and Ceftriaxone and Flagyl ( ABx d# 42/42 ) - 05/24 SP Cefepime #4 -Monitor CBC/BMP, temperatures -contact precautions -wound care/prevention per hospital protocol -discharge planning Subjective Allergies: Coded Allergies: No Known Allergies (Unverified , 11/16/14) Subjective afebrile no leukocytosis off abx discharge planning Objective Vital Signs Last 24 Hour Vital Signs Date Time Temp Pulse Resp B/P (MAP) Pulse Ox O2 Delivery O2 Flow Rate FiO2 08/13/17 16:00 97.7 66 18 135/80 98 97.7 08/13/17 12:00 97.5 70 19 138/78 98 97.5 08/13/17 08:00 96.8 75 19 116/66 99 96.8 08/13/17 04:00 97.8 74 17 121/72 98 97.8 08/13/17 04:00 Room Air 6/1/18 01:21 Room Air 08/13/17 00:00 98.0 77 16 109/63 96 98.0 08/12/17 20:00 98.1 75 16 105/62 96 98.1 08/12/17 20:00 Room Air Height (Feet): 5 Height (Inches): 5.00 Weight (Pounds): 141 Objective General Appearance: cachetic Lines, tubes and drains: peripheral HEENT: atraumatic, anicteric Neck: non-tender, normal alignment Respiratory/Chest: chest wall non-tender, lungs clear Cardiovascular/Chest: normal peripheral pulses, regular rhythm Abdomen: normal bowel sounds, non tender Skin Exam: no rash Current Medications Medications (Trade) Dose Ordered Sig/Caden Route PRN Reason Start Time Stop Time Status Last Admin Dose Admin Acetaminophen (Tylenol) 650 mg Q4H PRN ORAL fever 07/24/17 12:00 08/23/17 11:59 Al Hydroxide/Mg Hydroxide (Mylanta II) 30 ml Q6H PRN ORAL dyspepsia 07/24/17 12:00 08/23/17 11:59 Dextrose (Dextrose 50%) STAT PRN IV Hypoglycemia 07/24/17 12:00 08/23/17 11:59 Heparin Sodium (Porcine) (Heparin 5000 units/ml) 5,000 units EVERY 12 HOURS SUBQ 07/24/17 21:00 08/23/17 20:59 08/13/17 09:13 Insulin Aspart (NovoLOG) BEFORE MEALS AND HS SUBQ 07/23/17 21:00 08/21/17 06:29 08/13/17 16:19 Ondansetron HCl (Zofran) 4 mg Q6H PRN IVP Nausea & Vomiting 07/23/17 22:45 08/20/17 22:44 Pantoprazole (Protonix) 40 mg DAILY ORAL 07/25/17 09:00 08/24/17 08:59 08/13/17 09:11 Polyethylene Glycol (Miralax) 17 gm HSPRN PRN ORAL Constipation 07/23/17 22:45 08/20/17 22:44 Sitagliptin Phosphate (Januvia) 50 mg ACBREAKFAST ORAL 07/25/17 06:30 08/24/17 06:29 08/13/17 05:43 Dena Frank M.D. Aug 13, 2017 18:27
[2017-08-13 20:03] VITALS: BP 138/76
--- NOTE | 2017-08-13 20:11 | Pulmonology Progress Note ---
Assessment/Plan Problems: (1) Cellulitis of right lower extremity (2) Tachycardia (3) Sepsis Assessment/Plan VRE positiive med/surg check electrolytes all reviewed Subjective ROS Limited/Unobtainable: No Allergies: Coded Allergies: No Known Allergies (Unverified , 11/16/14) Objective Last 24 Hour Vital Signs Date Time Temp Pulse Resp B/P (MAP) Pulse Ox O2 Delivery O2 Flow Rate FiO2 08/13/17 20:03 97.9 70 16 138/76 98 Room Air 97.9 08/13/17 16:00 97.7 66 18 135/80 98 97.7 08/13/17 12:00 97.5 70 19 138/78 98 97.5 08/13/17 08:00 96.8 75 19 116/66 99 96.8 08/13/17 04:00 97.8 74 17 121/72 98 97.8 08/13/17 04:00 Room Air 08/13/17 01:21 Room Air 08/13/17 00:00 98.0 77 16 109/63 96 98.0 Intake and Output 08/12/17 08/13/17 19:00 07:00 Intake Total 620 ml Output Total 650 ml 400 ml Balance -30 ml -400 ml Intake Oral 620 ml Output Urine Total 650 ml 400 ml Objective General Appearance: WD/WN HEENT: normocephalic Respiratory/Chest: chest wall non-tender, lungs clear Cardiovascular: normal peripheral pulses, normal rate Abdomen: normal bowel sounds, soft, non tender Genitourinary: normal external genitalia Extremities: no clubbing 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 Current Medications Medications (Trade) Dose Ordered Sig/Caden Route PRN Reason Start Time Stop Time Status Last Admin Dose Admin Acetaminophen (Tylenol) 650 mg Q4H PRN ORAL fever 07/24/17 12:00 08/23/17 11:59 Al Hydroxide/Mg Hydroxide (Mylanta II) 30 ml Q6H PRN ORAL dyspepsia 07/24/17 12:00 08/23/17 11:59 Dextrose (Dextrose 50%) STAT PRN IV Hypoglycemia 07/24/17 12:00 08/23/17 11:59 Heparin Sodium (Porcine) (Heparin 5000 units/ml) 5,000 units EVERY 12 HOURS SUBQ 07/24/17 21:00 08/23/17 20:59 08/13/17 09:13 Insulin Aspart (NovoLOG) BEFORE MEALS AND HS SUBQ 07/23/17 21:00 08/21/17 06:29 08/13/17 16:19 Ondansetron HCl (Zofran) 4 mg Q6H PRN IVP Nausea & Vomiting 07/23/17 22:45 08/20/17 22:44 Pantoprazole (Protonix) 40 mg DAILY ORAL 07/25/17 09:00 08/24/17 08:59 08/13/17 09:11 Polyethylene Glycol (Miralax) 17 gm HSPRN PRN ORAL Constipation 07/23/17 22:45 08/20/17 22:44 Sitagliptin Phosphate (Januvia) 50 mg ACBREAKFAST ORAL 07/25/17 06:30 08/24/17 06:29 08/13/17 05:43 Kyra Massey MD Aug 13, 2017 20:10
[2017-08-14] VITALS: BP 139/72
[2017-08-14 04:00] VITALS: BP 116/72
[2017-08-14] MEDS: sitaGLIPtin 50mg tab ORAL SCH (06:05)
[2017-08-14] MEDS: NovoLOG Insulin Flexpen SUBQ SCH ×4 (06:08→20:43)
[2017-08-14 08:00] VITALS: BP 130/70
[2017-08-14] MEDS: Heparin 5000 units/ml inj SUBQ SCH ×2 (09:01→20:45)
[2017-08-14 12:00] VITALS: BP 135/76
--- NOTE | 2017-08-14 14:49 | Internal Med Progress Note ---
Subjective Date of Service: Aug 14, 2017 Physician Name Daniel Tafoya Attending Physician Tello Fay MD Current Medications Medications (Trade) Dose Ordered Sig/Caden Route PRN Reason Start Time Stop Time Status Last Admin Dose Admin Acetaminophen (Tylenol) 650 mg Q4H PRN ORAL fever 07/24/17 12:00 08/23/17 11:59 Al Hydroxide/Mg Hydroxide (Mylanta II) 30 ml Q6H PRN ORAL dyspepsia 07/24/17 12:00 08/23/17 11:59 Dextrose (Dextrose 50%) STAT PRN IV Hypoglycemia 07/24/17 12:00 08/23/17 11:59 Heparin Sodium (Porcine) (Heparin 5000 units/ml) 5,000 units EVERY 12 HOURS SUBQ 07/24/17 21:00 08/23/17 20:59 08/14/17 09:01 Insulin Aspart (NovoLOG) BEFORE MEALS AND HS SUBQ 07/23/17 21:00 08/21/17 06:29 08/14/17 12:54 Ondansetron HCl (Zofran) 4 mg Q6H PRN IVP Nausea & Vomiting 07/23/17 22:45 08/20/17 22:44 Pantoprazole (Protonix) 40 mg DAILY ORAL 07/25/17 09:00 08/24/17 08:59 08/14/17 08:57 Polyethylene Glycol (Miralax) 17 gm HSPRN PRN ORAL Constipation 07/23/17 22:45 08/20/17 22:44 Sitagliptin Phosphate (Januvia) 50 mg ACBREAKFAST ORAL 07/25/17 06:30 08/24/17 06:29 08/14/17 06:05 Allergies: Coded Allergies: No Known Allergies (Unverified , 11/16/14) ROS Limited/Unobtainable: No Constitutional: Reports: no symptoms HEENT: Reports: no symptoms Cardiovascular: Reports: no symptoms Respiratory: Reports: no symptoms Gastrointestinal/Abdominal: Reports: no symptoms Genitourinary: Reports: no symptoms Neurologic/Psychiatric: Reports: no symptoms Subjective 66 YO M admitted with C. Diff diarrhea. Cover for Int Med-Dr Fay. Await placement Objective Last Vital Signs Date Time Temp Pulse Resp B/P (MAP) Pulse Ox O2 Delivery O2 Flow Rate FiO2 08/14/17 12:00 98.8 74 18 135/76 93 98.8 08/14/17 12:00 Room Air Intake and Output 08/13/17 08/14/17 19:00 07:00 Intake Total 620 ml Output Total 600 ml 650 ml Balance 20 ml -650 ml Intake Oral 620 ml Output Urine Total 600 ml 650 ml # Bowel Movements 1 Objective General Appearance: WD/WN, no apparent distress, alert, other - disheveled EENT: PERRL/EOMI, normal ENT inspection, TMs normal Neck: non-tender, normal alignment, supple, normal inspection Cardiovascular: normal peripheral pulses, normal rate, regular rhythm, no gallop/murmur, no JVD Respiratory/Chest: chest wall non-tender, lungs clear, normal breath sounds, no respiratory distress, no accessory muscle use Abdomen: normal bowel sounds, non tender, soft, no organomegaly, no mass Extremities: normal range of motion, non-tender 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 See ID note (2) Clostridium difficile diarrhea Assessment & Plan: S/P oral vanco Day #10/10 per ID (3) Failure to thrive (4) Cellulitis of right lower extremity Assessment & Plan: S/P antibiotic (5) Osteomyelitis Assessment & Plan: Right great toe. S/P antibiotic (6) Hemorrhage of gastrointestinal tract (7) Diabetes mellitus, type II Assessment & Plan: Continue novolog sliding scale. (8) HTN (hypertension) (9) Hypercholesteremia (10) S/P BKA (below knee amputation) unilateral (11) GERD (gastroesophageal reflux disease) (12) Gastritis (13) Fever Assessment & Plan: Low grade-see ID note. Assessment/Plan Discharge planning: [facility] when bed available. Daniel Tafoya MD Aug 14, 2017 14:49
[2017-08-14 16:00] VITALS: BP 130/70
[2017-08-14 19:28] VITALS: BP 122/75
[2017-08-15] VITALS: BP 122/72
[2017-08-15] MEDS: sitaGLIPtin 50mg tab ORAL SCH (06:16)
[2017-08-15] MEDS: NovoLOG Insulin Flexpen SUBQ SCH ×4 (06:24→21:56)
[2017-08-15 08:00] VITALS: BP 143/76
[2017-08-15] MEDS: Heparin 5000 units/ml inj SUBQ SCH ×2 (09:07→21:55)
--- NOTE | 2017-08-15 11:14 | Pulmonology Progress Note ---
Assessment/Plan Problems: (1) Cellulitis of right lower extremity (2) Tachycardia (3) Sepsis Assessment/Plan VRE positiive med/surg check electrolytes all reviewed Subjective ROS Limited/Unobtainable: No Constitutional: Reports: no symptoms HEENT: Repors: no symptoms Allergies: Coded Allergies: No Known Allergies (Unverified , 11/16/14) Objective Last 24 Hour Vital Signs Date Time Temp Pulse Resp B/P (MAP) Pulse Ox O2 Delivery O2 Flow Rate FiO2 08/15/17 08:00 96.4 70 18 143/76 97 Room Air 96.4 08/15/17 08:00 96.4 70 18 143/76 97 Room Air 96.4 08/15/17 00:00 96.9 78 18 122/72 96 Room Air 96.9 08/14/17 19:28 97.9 75 17 122/75 95 Room Air 97.9 08/14/17 16:00 Room Air 08/14/17 16:00 97.4 70 18 130/70 98 97.4 08/14/17 12:00 98.8 74 18 135/76 93 98.8 08/14/17 12:00 Room Air Intake and Output 08/14/17 08/15/17 19:00 07:00 Intake Total 300 ml 400 ml Output Total 600 ml Balance 300 ml -200 ml Intake Oral 300 ml 400 ml Output Urine Total 600 ml # Voids 1 2 # Bowel Movements 1 Objective General Appearance: WD/WN HEENT: normocephalic Respiratory/Chest: chest wall non-tender, lungs clear Cardiovascular: normal peripheral pulses, normal rate Abdomen: normal bowel sounds, soft, non tender Genitourinary: normal external genitalia Extremities: no clubbing 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 Current Medications Medications (Trade) Dose Ordered Sig/Caden Route PRN Reason Start Time Stop Time Status Last Admin Dose Admin Acetaminophen (Tylenol) 650 mg Q4H PRN ORAL fever 07/24/17 12:00 08/23/17 11:59 Al Hydroxide/Mg Hydroxide (Mylanta II) 30 ml Q6H PRN ORAL dyspepsia 07/24/17 12:00 08/23/17 11:59 Dextrose (Dextrose 50%) STAT PRN IV Hypoglycemia 07/24/17 12:00 08/23/17 11:59 Heparin Sodium (Porcine) (Heparin 5000 units/ml) 5,000 units EVERY 12 HOURS SUBQ 07/24/17 21:00 08/23/17 20:59 08/15/17 09:07 Insulin Aspart (NovoLOG) BEFORE MEALS AND HS SUBQ 07/23/17 21:00 08/21/17 06:29 08/15/17 06:24 Ondansetron HCl (Zofran) 4 mg Q6H PRN IVP Nausea & Vomiting 07/23/17 22:45 08/20/17 22:44 Pantoprazole (Protonix) 40 mg DAILY ORAL 07/25/17 09:00 08/24/17 08:59 08/15/17 09:04 Polyethylene Glycol (Miralax) 17 gm HSPRN PRN ORAL Constipation 07/23/17 22:45 08/20/17 22:44 Sitagliptin Phosphate (Januvia) 50 mg ACBREAKFAST ORAL 07/25/17 06:30 08/24/17 06:29 08/15/17 06:16 Kyra Massey MD Aug 15, 2017 11:14
[2017-08-15 12:14] VITALS: BP 164/85
[2017-08-15 12:30] VITALS: BP 140/79
--- NOTE | 2017-08-15 15:47 | Internal Med Progress Note ---
Subjective Physician Name Daniel Tafoya Attending Physician Tello Fay MD Current Medications Medications (Trade) Dose Ordered Sig/Caden Route PRN Reason Start Time Stop Time Status Last Admin Dose Admin Acetaminophen (Tylenol) 650 mg Q4H PRN ORAL fever 07/24/17 12:00 08/23/17 11:59 Al Hydroxide/Mg Hydroxide (Mylanta II) 30 ml Q6H PRN ORAL dyspepsia 07/24/17 12:00 08/23/17 11:59 Dextrose (Dextrose 50%) STAT PRN IV Hypoglycemia 07/24/17 12:00 08/23/17 11:59 Heparin Sodium (Porcine) (Heparin 5000 units/ml) 5,000 units EVERY 12 HOURS SUBQ 07/24/17 21:00 08/23/17 20:59 08/15/17 09:07 Insulin Aspart (NovoLOG) BEFORE MEALS AND HS SUBQ 07/23/17 21:00 08/21/17 06:29 08/15/17 11:58 Ondansetron HCl (Zofran) 4 mg Q6H PRN IVP Nausea & Vomiting 07/23/17 22:45 08/20/17 22:44 Pantoprazole (Protonix) 40 mg DAILY ORAL 07/25/17 09:00 08/24/17 08:59 08/15/17 09:04 Polyethylene Glycol (Miralax) 17 gm HSPRN PRN ORAL Constipation 07/23/17 22:45 08/20/17 22:44 Sitagliptin Phosphate (Januvia) 50 mg ACBREAKFAST ORAL 07/25/17 06:30 08/24/17 06:29 08/15/17 06:16 Allergies: Coded Allergies: No Known Allergies (Unverified , 11/16/14) ROS Limited/Unobtainable: No Constitutional: Reports: no symptoms HEENT: Reports: no symptoms Cardiovascular: Reports: no symptoms Respiratory: Reports: no symptoms Gastrointestinal/Abdominal: Reports: no symptoms Genitourinary: Reports: no symptoms Neurologic/Psychiatric: Reports: no symptoms Subjective 66 YO M admitted with C. Diff diarrhea. Cover for Int Med-Dr Fay. Await placement Objective Last Vital Signs Date Time Temp Pulse Resp B/P (MAP) Pulse Ox O2 Delivery O2 Flow Rate FiO2 08/15/17 12:30 74 140/79 6/3/18 12:14 98.1 20 95 Room Air 98.1 Intake and Output 08/14/17 08/15/17 19:00 07:00 Intake Total 300 ml 400 ml Output Total 600 ml Balance 300 ml -200 ml Intake Oral 300 ml 400 ml Output Urine Total 600 ml # Voids 1 2 # Bowel Movements 1 Objective General Appearance: WD/WN, no apparent distress, alert, other - disheveled EENT: PERRL/EOMI, normal ENT inspection, TMs normal Neck: non-tender, normal alignment, supple, normal inspection Cardiovascular: normal peripheral pulses, normal rate, regular rhythm, no gallop/murmur, no JVD Respiratory/Chest: chest wall non-tender, lungs clear, normal breath sounds, no respiratory distress, no accessory muscle use Abdomen: normal bowel sounds, non tender, soft, no organomegaly, no mass Extremities: normal range of motion, non-tender 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 See ID note (2) Clostridium difficile diarrhea Assessment & Plan: S/P oral vanco Day #10 per ID (3) Failure to thrive (4) Cellulitis of right lower extremity Assessment & Plan: S/P antibiotic (5) Osteomyelitis Assessment & Plan: Right great toe. S/P antibiotic (6) Hemorrhage of gastrointestinal tract (7) Diabetes mellitus, type II Assessment & Plan: Continue novolog sliding scale. (8) HTN (hypertension) (9) Hypercholesteremia (10) S/P BKA (below knee amputation) unilateral (11) GERD (gastroesophageal reflux disease) (12) Gastritis (13) Fever Assessment & Plan: Low grade-see ID note. Status: stable Assessment/Plan Discharge planning: [facility] when bed available. Daniel Tafoya MD Aug 15, 2017 15:47
[2017-08-15 16:00] VITALS: BP_SYST 145; BP_SYST 151; BP_DIAS 78; BP_DIAS 85
[2017-08-15 20:00] VITALS: BP 148/73
[2017-08-16 04:00] VITALS: BP 129/77
[2017-08-16] MEDS: sitaGLIPtin 50mg tab ORAL SCH (05:41)
[2017-08-16] MEDS: NovoLOG Insulin Flexpen SUBQ SCH ×4 (05:43→20:21)
[2017-08-16 08:09] VITALS: BP 96/59
[2017-08-16] MEDS: Heparin 5000 units/ml inj SUBQ SCH ×2 (08:15→20:21)
[2017-08-16 12:00] VITALS: BP 139/73
--- NOTE | 2017-08-16 12:22 | Internal Med Progress Note ---
Subjective Date of Service: Aug 16, 2017 Physician Name Daniel Tafoya Attending Physician Tello Fay MD Current Medications Medications (Trade) Dose Ordered Sig/Caden Route PRN Reason Start Time Stop Time Status Last Admin Dose Admin Acetaminophen (Tylenol) 650 mg Q4H PRN ORAL fever 07/24/17 12:00 08/23/17 11:59 Al Hydroxide/Mg Hydroxide (Mylanta II) 30 ml Q6H PRN ORAL dyspepsia 07/24/17 12:00 08/23/17 11:59 Dextrose (Dextrose 50%) STAT PRN IV Hypoglycemia 07/24/17 12:00 08/23/17 11:59 Heparin Sodium (Porcine) (Heparin 5000 units/ml) 5,000 units EVERY 12 HOURS SUBQ 07/24/17 21:00 08/23/17 20:59 08/16/17 08:15 Insulin Aspart (NovoLOG) BEFORE MEALS AND HS SUBQ 07/23/17 21:00 08/21/17 06:29 08/16/17 11:49 Ondansetron HCl (Zofran) 4 mg Q6H PRN IVP Nausea & Vomiting 07/23/17 22:45 08/20/17 22:44 Pantoprazole (Protonix) 40 mg DAILY ORAL 07/25/17 09:00 08/24/17 08:59 08/16/17 08:13 Polyethylene Glycol (Miralax) 17 gm HSPRN PRN ORAL Constipation 07/23/17 22:45 08/20/17 22:44 Sitagliptin Phosphate (Januvia) 50 mg ACBREAKFAST ORAL 07/25/17 06:30 08/24/17 06:29 08/16/17 05:41 Allergies: Coded Allergies: No Known Allergies (Unverified , 11/16/14) ROS Limited/Unobtainable: No Constitutional: Reports: no symptoms HEENT: Reports: no symptoms Cardiovascular: Reports: no symptoms Respiratory: Reports: no symptoms Gastrointestinal/Abdominal: Reports: no symptoms Genitourinary: Reports: no symptoms Neurologic/Psychiatric: Reports: no symptoms Subjective 66 YO M admitted with C. Diff diarrhea. Cover for Int Med-Dr Fya. Await placement Objective Last Vital Signs Date Time Temp Pulse Resp B/P (MAP) Pulse Ox O2 Delivery O2 Flow Rate FiO2 08/16/17 08:09 97.9 76 20 96/59 96 Room Air 97.9 Intake and Output 08/15/17 08/16/17 19:00 07:00 Intake Total 960 ml 600 ml Output Total 1000 ml 800 ml Balance -40 ml -200 ml Intake Oral 960 ml 600 ml Output Urine Total 1000 ml 800 ml Objective General Appearance: WD/WN, no apparent distress, alert, other - disheveled EENT: PERRL/EOMI, normal ENT inspection, TMs normal Neck: non-tender, normal alignment, supple, normal inspection Cardiovascular: normal peripheral pulses, normal rate, regular rhythm, no gallop/murmur, no JVD Respiratory/Chest: chest wall non-tender, lungs clear, normal breath sounds, no respiratory distress, no accessory muscle use Abdomen: normal bowel sounds, non tender, soft, no organomegaly, no mass Extremities: normal range of motion, non-tender 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 See ID note (2) Clostridium difficile diarrhea Assessment & Plan: S/P oral vanco Day #10/ per ID (3) Failure to thrive (4) Cellulitis of right lower extremity Assessment & Plan: S/P antibiotic (5) Osteomyelitis Assessment & Plan: Right great toe. S/P antibiotic (6) Hemorrhage of gastrointestinal tract (7) Diabetes mellitus, type II Assessment & Plan: Continue novolog sliding scale. (8) HTN (hypertension) (9) Hypercholesteremia (10) S/P BKA (below knee amputation) unilateral (11) GERD (gastroesophageal reflux disease) (12) Gastritis (13) Fever Assessment & Plan: Low grade-see ID note. Status: stable Assessment/Plan Discharge planning: [facility] when bed available. Daniel Tafoya MD Aug 16, 2017 12:22
--- NOTE | 2017-08-16 12:31 | Infectious Diseases Prog Note ---
Assessment/Plan Assessment/Plan Assessment: Sepsis , SP Severe Cdiff; , resolved , s/p Rx -Cdiff + -CXR: Suggestion of mild basal atelectasis. Correlate clinically -u/a wbc 2/4, nit +, leuk +2; ucx mixed gram positive growth Bcx Neg Leukocytosis, SP Low grade fever, SP MENG, improving Recent Right foot cellulitis and right big toe. osteo , s/p Rx -MRI R foot: Findings suspicious for osteomyelitis of the distal aspect of the first distal phalanx -wound cx E.fecalis ([place] S), CoNS (likely represents colonizers) -RP : 2.4 => 07/02 : 0.4 -06/28 ESR : 74 => 07/02 : 31 Recent Coffee ground Emesis 2ry to diffuse gastitis -s/p EGD 07/08: Diffuse gastritis, status post biopsy, otherwise normal upper endoscopic examination. Diabetes. Hyperlipidemia. Hypertension. Left BKA. History of alcohol abuse and smoking until recently. chronic thrombosis of superficial femoral vein. Plan: - Monitor pt off of AB Rx - 07/31 PO Vancomycin 125mg qid abx d# 10 / for C Diff. ( shorten AB Rx to 10 d , in view of rapid response ) - 07/22 SP PO Flagyl #2 - 07/21 SP IV Vanco and Unasyn x1 - 07/01 SP IV vancomycin and Ceftriaxone and Flagyl ( ABx d# 42/42 ) - 05/24 SP Cefepime #4 -Monitor CBC/BMP, temperatures -contact precautions -wound care/prevention per hospital protocol -discharge planning Subjective Allergies: Coded Allergies: No Known Allergies (Unverified , 11/16/14) Subjective afebrile no leukocytosis off abx discharge planning Objective Vital Signs Last 24 Hour Vital Signs Date Time Temp Pulse Resp B/P (MAP) Pulse Ox O2 Delivery O2 Flow Rate FiO2 08/16/17 08:09 97.9 76 20 96/59 96 Room Air 97.9 08/16/17 04:00 97.2 71 20 129/77 96 Room Air 97.2 08/15/17 20:00 97.5 78 20 148/73 96 Room Air 97.5 08/15/17 16:00 97.6 72 20 151/78 97 Room Air 97.6 Height (Feet): 5 Height (Inches): 5.00 Weight (Pounds): 141 Objective General Appearance: cachetic Lines, tubes and drains: peripheral HEENT: atraumatic, anicteric Neck: non-tender, normal alignment Respiratory/Chest: chest wall non-tender, lungs clear Cardiovascular/Chest: normal peripheral pulses, regular rhythm Abdomen: normal bowel sounds, non tender Skin Exam: no rash Current Medications Medications (Trade) Dose Ordered Sig/Caden Route PRN Reason Start Time Stop Time Status Last Admin Dose Admin Acetaminophen (Tylenol) 650 mg Q4H PRN ORAL fever 07/24/17 12:00 08/23/17 11:59 Al Hydroxide/Mg Hydroxide (Mylanta II) 30 ml Q6H PRN ORAL dyspepsia 07/24/17 12:00 08/23/17 11:59 Dextrose (Dextrose 50%) STAT PRN IV Hypoglycemia 07/24/17 12:00 08/23/17 11:59 Heparin Sodium (Porcine) (Heparin 5000 units/ml) 5,000 units EVERY 12 HOURS SUBQ 07/24/17 21:00 08/23/17 20:59 08/16/17 08:15 Insulin Aspart (NovoLOG) BEFORE MEALS AND HS SUBQ 07/23/17 21:00 08/21/17 06:29 08/16/17 11:49 Ondansetron HCl (Zofran) 4 mg Q6H PRN IVP Nausea & Vomiting 07/23/17 22:45 08/20/17 22:44 Pantoprazole (Protonix) 40 mg DAILY ORAL 07/25/17 09:00 08/24/17 08:59 08/16/17 08:13 Polyethylene Glycol (Miralax) 17 gm HSPRN PRN ORAL Constipation 07/23/17 22:45 08/20/17 22:44 Sitagliptin Phosphate (Januvia) 50 mg ACBREAKFAST ORAL 07/25/17 06:30 08/24/17 06:29 08/16/17 05:41 Dena Frank M.D. Aug 16, 2017 12:31
[2017-08-16 16:00] VITALS: BP 157/86
[2017-08-16 20:00] VITALS: BP 128/81
[2017-08-17 00:40] VITALS: BP 136/75
[2017-08-17 04:00] VITALS: BP 126/72
[2017-08-17] MEDS: sitaGLIPtin 50mg tab ORAL SCH (05:56)
[2017-08-17] MEDS: NovoLOG Insulin Flexpen SUBQ SCH ×4 (06:00→20:40)
[2017-08-17] MEDS: Heparin 5000 units/ml inj SUBQ SCH ×2 (07:40→20:41)
[2017-08-17 11:37] VITALS: BP 135/81
--- NOTE | 2017-08-17 15:34 | Pulmonology Progress Note ---
Assessment/Plan Problems: (1) Cellulitis of right lower extremity (2) Tachycardia (3) Sepsis Assessment/Plan VRE positiive med/surg check electrolytes all reviewed Subjective ROS Limited/Unobtainable: No Constitutional: Reports: no symptoms HEENT: Repors: no symptoms Respiratory: Reports: no symptoms Allergies: Coded Allergies: No Known Allergies (Unverified , 11/16/14) Objective Last 24 Hour Vital Signs Date Time Temp Pulse Resp B/P (MAP) Pulse Ox O2 Delivery O2 Flow Rate FiO2 08/17/17 11:37 98.2 82 18 135/81 97 98.2 08/17/17 04:00 97.9 76 17 126/72 97 97.9 08/17/17 04:00 Room Air 08/17/17 00:40 Room Air 08/17/17 00:40 97.9 72 17 136/75 96 97.9 08/16/17 20:00 98.2 78 18 128/81 95 Room Air 98.2 08/16/17 16:00 97.9 75 18 157/86 94 Room Air 97.9 Intake and Output 08/16/17 08/17/17 19:00 07:00 Intake Total 600 ml 200 ml Output Total 400 ml 500 ml Balance 200 ml -300 ml Intake Oral 600 ml 200 ml Output Urine Total 400 ml 500 ml # Bowel Movements 1 Objective General Appearance: WD/WN HEENT: normocephalic Respiratory/Chest: chest wall non-tender, lungs clear Cardiovascular: normal peripheral pulses, normal rate Abdomen: normal bowel sounds, soft, non tender Genitourinary: normal external genitalia Extremities: no clubbing 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 Current Medications Medications (Trade) Dose Ordered Sig/Caden Route PRN Reason Start Time Stop Time Status Last Admin Dose Admin Acetaminophen (Tylenol) 650 mg Q4H PRN ORAL fever 07/24/17 12:00 08/23/17 11:59 Al Hydroxide/Mg Hydroxide (Mylanta II) 30 ml Q6H PRN ORAL dyspepsia 07/24/17 12:00 08/23/17 11:59 Dextrose (Dextrose 50%) STAT PRN IV Hypoglycemia 07/24/17 12:00 08/23/17 11:59 Heparin Sodium (Porcine) (Heparin 5000 units/ml) 5,000 units EVERY 12 HOURS SUBQ 07/24/17 21:00 08/23/17 20:59 08/17/17 07:40 Insulin Aspart (NovoLOG) BEFORE MEALS AND HS SUBQ 07/23/17 21:00 08/21/17 06:29 08/17/17 11:59 Ondansetron HCl (Zofran) 4 mg Q6H PRN IVP Nausea & Vomiting 07/23/17 22:45 08/20/17 22:44 Pantoprazole (Protonix) 40 mg DAILY ORAL 07/25/17 09:00 08/24/17 08:59 08/17/17 07:38 Polyethylene Glycol (Miralax) 17 gm HSPRN PRN ORAL Constipation 07/23/17 22:45 08/20/17 22:44 Sitagliptin Phosphate (Januvia) 50 mg ACBREAKFAST ORAL 07/25/17 06:30 08/24/17 06:29 08/17/17 05:56 Kyra Massey MD Aug 17, 2017 15:34
[2017-08-17 15:49] VITALS: BP 138/76
--- NOTE | 2017-08-17 16:51 | Internal Med Progress Note ---
Subjective Date of Service: Aug 17, 2017 Physician Name Daniel Tafoya Attending Physician Tello Fay MD Current Medications Medications (Trade) Dose Ordered Sig/Caden Route PRN Reason Start Time Stop Time Status Last Admin Dose Admin Acetaminophen (Tylenol) 650 mg Q4H PRN ORAL fever 07/24/17 12:00 08/23/17 11:59 Al Hydroxide/Mg Hydroxide (Mylanta II) 30 ml Q6H PRN ORAL dyspepsia 07/24/17 12:00 08/23/17 11:59 Dextrose (Dextrose 50%) STAT PRN IV Hypoglycemia 07/24/17 12:00 08/23/17 11:59 Heparin Sodium (Porcine) (Heparin 5000 units/ml) 5,000 units EVERY 12 HOURS SUBQ 07/24/17 21:00 08/23/17 20:59 08/17/17 07:40 Insulin Aspart (NovoLOG) BEFORE MEALS AND HS SUBQ 07/23/17 21:00 08/21/17 06:29 08/17/17 16:14 Ondansetron HCl (Zofran) 4 mg Q6H PRN IVP Nausea & Vomiting 07/23/17 22:45 08/20/17 22:44 Pantoprazole (Protonix) 40 mg DAILY ORAL 07/25/17 09:00 08/24/17 08:59 08/17/17 07:38 Polyethylene Glycol (Miralax) 17 gm HSPRN PRN ORAL Constipation 07/23/17 22:45 08/20/17 22:44 Sitagliptin Phosphate (Januvia) 50 mg ACBREAKFAST ORAL 07/25/17 06:30 08/24/17 06:29 08/17/17 05:56 Allergies: Coded Allergies: No Known Allergies (Unverified , 11/16/14) ROS Limited/Unobtainable: No Constitutional: Reports: no symptoms HEENT: Reports: no symptoms Cardiovascular: Reports: no symptoms Respiratory: Reports: no symptoms Gastrointestinal/Abdominal: Reports: no symptoms Genitourinary: Reports: no symptoms Neurologic/Psychiatric: Reports: no symptoms Subjective 66 YO M admitted with C. Diff diarrhea. Cover for Int Med-Dr Fay. Await placement Objective Last Vital Signs Date Time Temp Pulse Resp B/P (MAP) Pulse Ox O2 Delivery O2 Flow Rate FiO2 08/17/17 15:49 98.0 85 18 138/76 97 98.0 08/17/17 04:00 Room Air Intake and Output 08/16/17 08/17/17 19:00 07:00 Intake Total 600 ml 200 ml Output Total 400 ml 500 ml Balance 200 ml -300 ml Intake Oral 600 ml 200 ml Output Urine Total 400 ml 500 ml # Bowel Movements 1 Objective General Appearance: WD/WN, no apparent distress, alert, other - disheveled EENT: PERRL/EOMI, normal ENT inspection, TMs normal Neck: non-tender, normal alignment, supple, normal inspection Cardiovascular: normal peripheral pulses, normal rate, regular rhythm, no gallop/murmur, no JVD Respiratory/Chest: chest wall non-tender, lungs clear, normal breath sounds, no respiratory distress, no accessory muscle use Abdomen: normal bowel sounds, non tender, soft, no organomegaly, no mass Extremities: normal range of motion, non-tender 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 See ID note (2) Clostridium difficile diarrhea Assessment & Plan: S/P oral vanco Day #10/ per ID (3) Failure to thrive (4) Cellulitis of right lower extremity Assessment & Plan: S/P antibiotic (5) Osteomyelitis Assessment & Plan: Right great toe. S/P antibiotic (6) Hemorrhage of gastrointestinal tract (7) Diabetes mellitus, type II Assessment & Plan: Continue novolog sliding scale. (8) HTN (hypertension) (9) Hypercholesteremia (10) S/P BKA (below knee amputation) unilateral (11) GERD (gastroesophageal reflux disease) (12) Gastritis (13) Fever Assessment & Plan: Low grade-see ID note. Status: stable Assessment/Plan Discharge planning: [facility] when bed available. Daniel Tafoya MD Aug 17, 2017 16:51
[2017-08-17 20:31] VITALS: BP 150/80
[2017-08-18] VITALS: BP 142/77
[2017-08-18] MEDS: sitaGLIPtin 50mg tab ORAL SCH (05:56)
[2017-08-18] MEDS: NovoLOG Insulin Flexpen SUBQ SCH ×4 (06:00→21:09)
[2017-08-18] MEDS: Heparin 5000 units/ml inj SUBQ SCH ×2 (07:54→21:10)
[2017-08-18 08:00] VITALS: BP 111/64
--- NOTE | 2017-08-18 11:20 | Internal Med Progress Note ---
Subjective Date of Service: Aug 18, 2017 Physician Name Daniel Tafoya Attending Physician Tello Fay MD Current Medications Medications (Trade) Dose Ordered Sig/Caden Route PRN Reason Start Time Stop Time Status Last Admin Dose Admin Acetaminophen (Tylenol) 650 mg Q4H PRN ORAL fever 07/24/17 12:00 08/23/17 11:59 Al Hydroxide/Mg Hydroxide (Mylanta II) 30 ml Q6H PRN ORAL dyspepsia 07/24/17 12:00 08/23/17 11:59 Dextrose (Dextrose 50%) STAT PRN IV Hypoglycemia 07/24/17 12:00 08/23/17 11:59 Heparin Sodium (Porcine) (Heparin 5000 units/ml) 5,000 units EVERY 12 HOURS SUBQ 07/24/17 21:00 08/23/17 20:59 08/17/17 20:41 Insulin Aspart (NovoLOG) BEFORE MEALS AND HS SUBQ 07/23/17 21:00 08/21/17 06:29 08/18/17 06:00 Ondansetron HCl (Zofran) 4 mg Q6H PRN IVP Nausea & Vomiting 07/23/17 22:45 08/20/17 22:44 Pantoprazole (Protonix) 40 mg DAILY ORAL 07/25/17 09:00 08/24/17 08:59 08/18/17 07:54 Polyethylene Glycol (Miralax) 17 gm HSPRN PRN ORAL Constipation 07/23/17 22:45 08/20/17 22:44 Sitagliptin Phosphate (Januvia) 50 mg ACBREAKFAST ORAL 07/25/17 06:30 08/24/17 06:29 08/18/17 05:56 Allergies: Coded Allergies: No Known Allergies (Unverified , 11/16/14) Subjective 66 YO M admitted with C. Diff diarrhea. Cover for Int Med-Dr Fay. Await placement Objective Last Vital Signs Date Time Temp Pulse Resp B/P (MAP) Pulse Ox O2 Delivery O2 Flow Rate FiO2 08/18/17 08:00 97.9 74 19 111/64 97 97.9 08/18/17 00:00 Room Air Intake and Output 08/17/17 08/18/17 19:00 07:00 Intake Total 1160 ml 360 ml Output Total 1800 ml 900 ml Balance -640 ml -540 ml Intake Oral 1160 ml 360 ml Output Urine Total 1800 ml 900 ml # Voids 2 # Bowel Movements 1 Objective General Appearance: WD/WN, no apparent distress, alert, other - disheveled EENT: PERRL/EOMI, normal ENT inspection, TMs normal Neck: non-tender, normal alignment, supple, normal inspection Cardiovascular: normal peripheral pulses, normal rate, regular rhythm, no gallop/murmur, no JVD Respiratory/Chest: chest wall non-tender, lungs clear, normal breath sounds, no respiratory distress, no accessory muscle use Abdomen: normal bowel sounds, non tender, soft, no organomegaly, no mass Extremities: normal range of motion, non-tender Neurologic: 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 See ID note (2) Clostridium difficile diarrhea Assessment & Plan: S/P oral vanco Day #10 per ID (3) Failure to thrive (4) Cellulitis of right lower extremity Assessment & Plan: S/P antibiotic (5) Osteomyelitis Assessment & Plan: Right great toe. S/P antibiotic (6) Hemorrhage of gastrointestinal tract (7) Diabetes mellitus, type II Assessment & Plan: Continue novolog sliding scale. (8) HTN (hypertension) (9) Hypercholesteremia (10) S/P BKA (below knee amputation) unilateral (11) GERD (gastroesophageal reflux disease) (12) Gastritis (13) Fever Assessment & Plan: Low grade-see ID note. Assessment/Plan Discharge planning: [facility] when bed available. Daniel Tafoya MD Aug 18, 2017 11:20
[2017-08-18 12:00] VITALS: BP 133/81
--- NOTE | 2017-08-18 14:27 | Pulmonology Progress Note ---
Assessment/Plan Problems: (1) Cellulitis of right lower extremity (2) Tachycardia (3) Sepsis Assessment/Plan VRE positiive med/surg check electrolytes all reviewed Subjective ROS Limited/Unobtainable: No Constitutional: Reports: no symptoms HEENT: Repors: no symptoms Allergies: Coded Allergies: No Known Allergies (Unverified , 11/16/14) Objective Last 24 Hour Vital Signs Date Time Temp Pulse Resp B/P (MAP) Pulse Ox O2 Delivery O2 Flow Rate FiO2 08/18/17 12:00 97.8 73 20 133/81 98 97.8 08/18/17 08:00 97.9 74 19 111/64 97 97.9 08/18/17 00:00 Room Air 08/18/17 00:00 98.1 77 16 142/77 98 98.1 08/17/17 20:31 98.2 71 18 150/80 98 98.2 08/17/17 20:00 Room Air 08/17/17 15:49 98.0 85 18 138/76 97 98.0 Intake and Output 08/17/17 08/18/17 19:00 07:00 Intake Total 1160 ml 360 ml Output Total 1800 ml 900 ml Balance -640 ml -540 ml Intake Oral 1160 ml 360 ml Output Urine Total 1800 ml 900 ml # Voids 2 # Bowel Movements 1 Objective General Appearance: WD/WN HEENT: normocephalic Respiratory/Chest: chest wall non-tender, lungs clear Cardiovascular: normal peripheral pulses, normal rate Abdomen: normal bowel sounds, soft, non tender Genitourinary: normal external genitalia Extremities: no clubbing Neurologic/Psychiatric: finish remover II-XII grossly normal Current Medications Medications (Trade) Dose Ordered Sig/Caden Route PRN Reason Start Time Stop Time Status Last Admin Dose Admin Acetaminophen (Tylenol) 650 mg Q4H PRN ORAL fever 07/24/17 12:00 08/23/17 11:59 Al Hydroxide/Mg Hydroxide (Mylanta II) 30 ml Q6H PRN ORAL dyspepsia 07/24/17 12:00 08/23/17 11:59 Dextrose (Dextrose 50%) STAT PRN IV Hypoglycemia 07/24/17 12:00 08/23/17 11:59 Heparin Sodium (Porcine) (Heparin 5000 units/ml) 5,000 units EVERY 12 HOURS SUBQ 07/24/17 21:00 08/23/17 20:59 08/17/17 20:41 Insulin Aspart (NovoLOG) BEFORE MEALS AND HS SUBQ 07/23/17 21:00 08/21/17 06:29 08/18/17 11:45 Ondansetron HCl (Zofran) 4 mg Q6H PRN IVP Nausea & Vomiting 07/23/17 22:45 08/20/17 22:44 Pantoprazole (Protonix) 40 mg DAILY ORAL 07/25/17 09:00 08/24/17 08:59 08/18/17 07:54 Polyethylene Glycol (Miralax) 17 gm HSPRN PRN ORAL Constipation 07/23/17 22:45 08/20/17 22:44 Sitagliptin Phosphate (Januvia) 50 mg ACBREAKFAST ORAL 07/25/17 06:30 08/24/17 06:29 08/18/17 05:56 Krya Massey MD Aug 18, 2017 14:27
[2017-08-18 16:00] VITALS: BP 125/71
[2017-08-18 20:00] VITALS: BP 151/82
[2017-08-18 23:28] VITALS: BP 112/59
[2017-08-19 04:52] VITALS: BP 116/63
[2017-08-19] MEDS: sitaGLIPtin 50mg tab ORAL SCH (06:07)
[2017-08-19] MEDS: NovoLOG Insulin Flexpen SUBQ SCH ×4 (06:11→20:41)
[2017-08-19 08:00] VITALS: BP 114/83
[2017-08-19] MEDS: Heparin 5000 units/ml inj SUBQ SCH ×2 (09:28→20:36)
[2017-08-19 12:00] VITALS: BP 143/89
--- NOTE | 2017-08-19 12:11 | Pulmonology Progress Note ---
Assessment/Plan Problems: (1) Cellulitis of right lower extremity (2) Tachycardia (3) Sepsis Assessment/Plan doing better VRE positiive med/surg check electrolytes all reviewed check labs periodically Subjective ROS Limited/Unobtainable: No Constitutional: Reports: no symptoms HEENT: Repors: no symptoms Respiratory: Reports: no symptoms Allergies: Coded Allergies: No Known Allergies (Unverified , 11/16/14) Objective Last 24 Hour Vital Signs Date Time Temp Pulse Resp B/P (MAP) Pulse Ox O2 Delivery O2 Flow Rate FiO2 08/19/17 08:00 97.9 80 19 114/83 99 97.9 08/19/17 04:52 96.6 80 20 116/63 96 Room Air 96.6 08/19/17 04:00 Room Air 08/19/17 00:00 Room Air 08/18/17 23:28 98.1 77 18 112/59 96 98.1 08/18/17 20:00 98.2 82 18 151/82 97 98.2 08/18/17 20:00 Room Air 08/18/17 16:00 97.8 72 20 125/71 98 97.8 Intake and Output 08/18/17 08/19/17 19:00 07:00 Intake Total 300 ml 240 ml Output Total 800 ml 900 ml Balance -500 ml -660 ml Intake Oral 300 ml 240 ml Output Urine Total 800 ml 900 ml # Voids 1 # Bowel Movements 2 Objective General Appearance: WD/WN HEENT: normocephalic Respiratory/Chest: chest wall non-tender, lungs clear Cardiovascular: normal peripheral pulses, normal rate Abdomen: normal bowel sounds, soft, non tender Genitourinary: normal external genitalia Extremities: no clubbing Neurologic/Psychiatric: 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-XII grossly normal Current Medications Medications (Trade) Dose Ordered Sig/Caden Route PRN Reason Start Time Stop Time Status Last Admin Dose Admin Acetaminophen (Tylenol) 650 mg Q4H PRN ORAL fever 07/24/17 12:00 08/23/17 11:59 Al Hydroxide/Mg Hydroxide (Mylanta II) 30 ml Q6H PRN ORAL dyspepsia 07/24/17 12:00 08/23/17 11:59 Dextrose (Dextrose 50%) STAT PRN IV Hypoglycemia 07/24/17 12:00 08/23/17 11:59 Heparin Sodium (Porcine) (Heparin 5000 units/ml) 5,000 units EVERY 12 HOURS SUBQ 07/24/17 21:00 08/23/17 20:59 08/19/17 09:28 Insulin Aspart (NovoLOG) BEFORE MEALS AND HS SUBQ 07/23/17 21:00 08/21/17 06:29 08/19/17 11:49 Ondansetron HCl (Zofran) 4 mg Q6H PRN IVP Nausea & Vomiting 07/23/17 22:45 08/20/17 22:44 Pantoprazole (Protonix) 40 mg DAILY ORAL 07/25/17 09:00 08/24/17 08:59 08/19/17 09:25 Polyethylene Glycol (Miralax) 17 gm HSPRN PRN ORAL Constipation 07/23/17 22:45 08/20/17 22:44 Sitagliptin Phosphate (Januvia) 50 mg ACBREAKFAST ORAL 07/25/17 06:30 08/24/17 06:29 08/19/17 06:07 Kyra Massey MD Aug 19, 2017 12:11
[2017-08-19 16:00] VITALS: BP 119/80
--- NOTE | 2017-08-19 16:39 | Internal Med Progress Note ---
Subjective Date of Service: Aug 19, 2017 Physician Name Daniel Tafoya Attending Physician Tello Fay MD Current Medications Medications (Trade) Dose Ordered Sig/Caden Route PRN Reason Start Time Stop Time Status Last Admin Dose Admin Acetaminophen (Tylenol) 650 mg Q4H PRN ORAL fever 07/24/17 12:00 08/23/17 11:59 Al Hydroxide/Mg Hydroxide (Mylanta II) 30 ml Q6H PRN ORAL dyspepsia 07/24/17 12:00 08/23/17 11:59 Dextrose (Dextrose 50%) STAT PRN IV Hypoglycemia 07/24/17 12:00 08/23/17 11:59 Heparin Sodium (Porcine) (Heparin 5000 units/ml) 5,000 units EVERY 12 HOURS SUBQ 07/24/17 21:00 08/23/17 20:59 08/19/17 09:28 Insulin Aspart (NovoLOG) BEFORE MEALS AND HS SUBQ 07/23/17 21:00 08/21/17 06:29 08/19/17 11:49 Ondansetron HCl (Zofran) 4 mg Q6H PRN IVP Nausea & Vomiting 07/23/17 22:45 08/20/17 22:44 Pantoprazole (Protonix) 40 mg DAILY ORAL 07/25/17 09:00 08/24/17 08:59 08/19/17 09:25 Polyethylene Glycol (Miralax) 17 gm HSPRN PRN ORAL Constipation 07/23/17 22:45 08/20/17 22:44 Sitagliptin Phosphate (Januvia) 50 mg ACBREAKFAST ORAL 07/25/17 06:30 08/24/17 06:29 08/19/17 06:07 Allergies: Coded Allergies: No Known Allergies (Unverified , 11/16/14) ROS Limited/Unobtainable: No Constitutional: Reports: no symptoms HEENT: Reports: no symptoms Cardiovascular: Reports: no symptoms Respiratory: Reports: no symptoms Gastrointestinal/Abdominal: Reports: no symptoms Genitourinary: Reports: no symptoms Neurologic/Psychiatric: Reports: no symptoms Subjective 66 YO M admitted with C. Diff diarrhea. Cover for Int Med-Dr Fay. Await placement Objective Last Vital Signs Date Time Temp Pulse Resp B/P (MAP) Pulse Ox O2 Delivery O2 Flow Rate FiO2 08/19/17 16:00 97.5 75 20 119/80 97 97.5 08/19/17 04:52 Room Air Intake and Output 08/18/17 08/19/17 19:00 07:00 Intake Total 300 ml 240 ml Output Total 800 ml 900 ml Balance -500 ml -660 ml Intake Oral 300 ml 240 ml Output Urine Total 800 ml 900 ml # Voids 1 # Bowel Movements 2 Objective General Appearance: WD/WN, no apparent distress, alert, other - disheveled EENT: PERRL/EOMI, normal ENT inspection, TMs normal Neck: non-tender, normal alignment, supple, normal inspection Cardiovascular: normal peripheral pulses, normal rate, regular rhythm, no gallop/murmur, no JVD Respiratory/Chest: chest wall non-tender, lungs clear, normal breath sounds, no respiratory distress, no accessory muscle use Abdomen: normal bowel sounds, non tender, soft, no organomegaly, no mass Extremities: normal range of motion, non-tender Neurologic: equine 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 See ID note (2) Clostridium difficile diarrhea Assessment & Plan: S/P oral vanco Day #10/10 per ID (3) Failure to thrive (4) Cellulitis of right lower extremity Assessment & Plan: S/P antibiotic (5) Osteomyelitis Assessment & Plan: Right great toe. S/P antibiotic (6) Hemorrhage of gastrointestinal tract (7) Diabetes mellitus, type II Assessment & Plan: Continue novolog sliding scale. (8) HTN (hypertension) (9) Hypercholesteremia (10) S/P BKA (below knee amputation) unilateral (11) GERD (gastroesophageal reflux disease) (12) Gastritis (13) Fever Assessment & Plan: Low grade-see ID note. Assessment/Plan Discharge planning: [facility] when bed available. Daniel Tafoya MD Aug 19, 2017 16:38
[2017-08-19 20:00] VITALS: BP 137/81
[2017-08-20] VITALS: BP 130/75
[2017-08-20 04:00] VITALS: BP 140/78
[2017-08-20] MEDS: sitaGLIPtin 50mg tab ORAL SCH (06:26)
[2017-08-20] MEDS: NovoLOG Insulin Flexpen SUBQ SCH ×4 (06:29→21:28)
[2017-08-20] MEDS: Heparin 5000 units/ml inj SUBQ SCH ×2 (08:52→21:28)
--- NOTE | 2017-08-20 09:05 | Infectious Diseases Prog Note ---
Assessment/Plan Assessment/Plan Assessment: Sepsis , SP Severe Cdiff; , resolved , s/p Rx -Cdiff + -CXR: Suggestion of mild basal atelectasis. Correlate clinically -u/a wbc 2/4, nit +, leuk +2; ucx mixed gram positive growth Bcx Neg Leukocytosis, SP Low grade fever, SP MENG, improving Recent Right foot cellulitis and right big toe. osteo , s/p Rx -MRI R foot: Findings suspicious for osteomyelitis of the distal aspect of the first distal phalanx -wound cx E.fecalis ([place] S), CoNS (likely represents colonizers) -RP : 2.4 => 07/02 : 0.4 -06/28 ESR : 74 => 07/02 : 31 Recent Coffee ground Emesis 2ry to diffuse gastitis -s/p EGD 07/08: Diffuse gastritis, status post biopsy, otherwise normal upper endoscopic examination. Diabetes. Hyperlipidemia. Hypertension. Left BKA. History of alcohol abuse and smoking until recently. chronic thrombosis of superficial femoral vein. Plan: - Monitor pt off of AB Rx - 07/31 PO Vancomycin 125mg qid abx d# 10 / for C Diff. ( shorten AB Rx to 10 d , in view of rapid response ) - 07/22 SP PO Flagyl #2 - 07/21 SP IV Vanco and Unasyn x1 - 07/01 SP IV vancomycin and Ceftriaxone and Flagyl ( ABx d# 42/42 ) - 05/24 SP Cefepime #4 -Monitor CBC/BMP, temperatures -contact precautions -wound care/prevention per hospital protocol -discharge planning Subjective Allergies: Coded Allergies: No Known Allergies (Unverified , 11/16/14) Subjective afebrile no leukocytosis off abx discharge planning Objective Vital Signs Last 24 Hour Vital Signs Date Time Temp Pulse Resp B/P (MAP) Pulse Ox O2 Delivery O2 Flow Rate FiO2 08/20/17 04:00 97.2 72 18 140/78 97 Room Air 97.2 08/20/17 00:00 98.1 76 18 130/75 99 Room Air 98.1 08/19/17 20:00 98.1 75 18 137/81 95 Room Air 98.1 08/19/17 16:00 97.5 75 20 119/80 97 97.5 08/19/17 12:00 97.9 74 18 143/89 97 97.9 Height (Feet): 5 Height (Inches): 5.00 Weight (Pounds): 142 Objective General Appearance: cachetic Lines, tubes and drains: peripheral HEENT: atraumatic, anicteric Neck: non-tender, normal alignment Respiratory/Chest: chest wall non-tender, lungs clear Cardiovascular/Chest: normal peripheral pulses, regular rhythm Abdomen: normal bowel sounds, non tender Skin Exam: no rash Current Medications Medications (Trade) Dose Ordered Sig/Caden Route PRN Reason Start Time Stop Time Status Last Admin Dose Admin Acetaminophen (Tylenol) 650 mg Q4H PRN ORAL fever 07/24/17 12:00 08/23/17 11:59 Al Hydroxide/Mg Hydroxide (Mylanta II) 30 ml Q6H PRN ORAL dyspepsia 07/24/17 12:00 08/23/17 11:59 Dextrose (Dextrose 50%) STAT PRN IV Hypoglycemia 07/24/17 12:00 08/23/17 11:59 Heparin Sodium (Porcine) (Heparin 5000 units/ml) 5,000 units EVERY 12 HOURS SUBQ 07/24/17 21:00 08/23/17 20:59 08/19/17 20:36 Insulin Aspart (NovoLOG) BEFORE MEALS AND HS SUBQ 07/23/17 21:00 08/21/17 06:29 08/20/17 06:29 Ondansetron HCl (Zofran) 4 mg Q6H PRN IVP Nausea & Vomiting 07/23/17 22:45 08/20/17 22:44 Pantoprazole (Protonix) 40 mg DAILY ORAL 07/25/17 09:00 08/24/17 08:59 08/20/17 08:54 Polyethylene Glycol (Miralax) 17 gm HSPRN PRN ORAL Constipation 07/23/17 22:45 08/20/17 22:44 Sitagliptin Phosphate (Januvia) 50 mg ACBREAKFAST ORAL 07/25/17 06:30 08/24/17 06:29 08/20/17 06:26 Dena Frank M.D. Aug 20, 2017 09:05
--- NOTE | 2017-08-20 15:51 | Pulmonology Progress Note ---
Assessment/Plan Problems: (1) Cellulitis of right lower extremity (2) Tachycardia (3) Sepsis Assessment/Plan doing better VRE positiive med/surg check electrolytes all reviewed check labs periodically Subjective ROS Limited/Unobtainable: No Allergies: Coded Allergies: No Known Allergies (Unverified , 11/16/14) Objective Last 24 Hour Vital Signs Date Time Temp Pulse Resp B/P (MAP) Pulse Ox O2 Delivery O2 Flow Rate FiO2 08/20/17 04:00 97.2 72 18 140/78 97 Room Air 97.2 08/20/17 00:00 98.1 76 18 130/75 99 Room Air 98.1 08/19/17 20:00 98.1 75 18 137/81 95 Room Air 98.1 08/19/17 16:00 97.5 75 20 119/80 97 97.5 Intake and Output 08/19/17 08/20/17 19:00 07:00 Intake Total 740 ml 300 ml Output Total 500 ml Balance 740 ml -200 ml Intake Oral 740 ml 300 ml Output Urine Total 500 ml # Voids 3 2 # Bowel Movements 1 1 Objective General Appearance: WD/WN HEENT: normocephalic Respiratory/Chest: chest wall non-tender, lungs clear Cardiovascular: normal peripheral pulses, normal rate Abdomen: normal bowel sounds, soft, non tender Genitourinary: normal external genitalia Extremities: no clubbing 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 Current Medications Medications (Trade) Dose Ordered Sig/Caden Route PRN Reason Start Time Stop Time Status Last Admin Dose Admin Acetaminophen (Tylenol) 650 mg Q4H PRN ORAL fever 07/24/17 12:00 08/23/17 11:59 Al Hydroxide/Mg Hydroxide (Mylanta II) 30 ml Q6H PRN ORAL dyspepsia 07/24/17 12:00 08/23/17 11:59 Dextrose (Dextrose 50%) STAT PRN IV Hypoglycemia 07/24/17 12:00 08/23/17 11:59 Heparin Sodium (Porcine) (Heparin 5000 units/ml) 5,000 units EVERY 12 HOURS SUBQ 07/24/17 21:00 08/23/17 20:59 08/19/17 20:36 Insulin Aspart (NovoLOG) BEFORE MEALS AND HS SUBQ 07/23/17 21:00 08/21/17 06:29 08/20/17 11:53 Ondansetron HCl (Zofran) 4 mg Q6H PRN IVP Nausea & Vomiting 07/23/17 22:45 08/20/17 22:44 Pantoprazole (Protonix) 40 mg DAILY ORAL 07/25/17 09:00 08/24/17 08:59 08/20/17 08:54 Polyethylene Glycol (Miralax) 17 gm HSPRN PRN ORAL Constipation 07/23/17 22:45 08/20/17 22:44 Sitagliptin Phosphate (Januvia) 50 mg ACBREAKFAST ORAL 07/25/17 06:30 08/24/17 06:29 08/20/17 06:26 Kyra Massey MD Aug 20, 2017 15:51
--- NOTE | 2017-08-20 17:44 | Internal Med Progress Note ---
Subjective Date of Service: Aug 20, 2017 Physician Name Daniel Tafoya Attending Physician Tello Fay MD Current Medications Medications (Trade) Dose Ordered Sig/Caden Route PRN Reason Start Time Stop Time Status Last Admin Dose Admin Acetaminophen (Tylenol) 650 mg Q4H PRN ORAL fever 07/24/17 12:00 08/23/17 11:59 Al Hydroxide/Mg Hydroxide (Mylanta II) 30 ml Q6H PRN ORAL dyspepsia 07/24/17 12:00 08/23/17 11:59 Dextrose (Dextrose 50%) STAT PRN IV Hypoglycemia 07/24/17 12:00 08/23/17 11:59 Heparin Sodium (Porcine) (Heparin 5000 units/ml) 5,000 units EVERY 12 HOURS SUBQ 07/24/17 21:00 08/23/17 20:59 08/19/17 20:36 Insulin Aspart (NovoLOG) BEFORE MEALS AND HS SUBQ 07/23/17 21:00 08/21/17 06:29 08/20/17 16:50 Ondansetron HCl (Zofran) 4 mg Q6H PRN IVP Nausea & Vomiting 07/23/17 22:45 08/20/17 22:44 Pantoprazole (Protonix) 40 mg DAILY ORAL 07/25/17 09:00 08/24/17 08:59 08/20/17 08:54 Polyethylene Glycol (Miralax) 17 gm HSPRN PRN ORAL Constipation 07/23/17 22:45 08/20/17 22:44 Sitagliptin Phosphate (Januvia) 50 mg ACBREAKFAST ORAL 07/25/17 06:30 08/24/17 06:29 08/20/17 06:26 Allergies: Coded Allergies: No Known Allergies (Unverified , 11/16/14) ROS Limited/Unobtainable: No Constitutional: Reports: no symptoms HEENT: Reports: no symptoms Cardiovascular: Reports: no symptoms Respiratory: Reports: no symptoms Gastrointestinal/Abdominal: Reports: no symptoms Genitourinary: Reports: no symptoms Neurologic/Psychiatric: Reports: no symptoms Subjective 66 YO M admitted with C. Diff diarrhea. Cover for Int Med-Dr Fay. Await placement Objective Last Vital Signs Date Time Temp Pulse Resp B/P (MAP) Pulse Ox O2 Delivery O2 Flow Rate FiO2 08/20/17 04:00 97.2 72 18 140/78 97 Room Air 97.2 Intake and Output 08/19/17 08/20/17 19:00 07:00 Intake Total 740 ml 300 ml Output Total 500 ml Balance 740 ml -200 ml Intake Oral 740 ml 300 ml Output Urine Total 500 ml # Voids 3 2 # Bowel Movements 1 1 Objective General Appearance: WD/WN, no apparent distress, alert, other - disheveled EENT: PERRL/EOMI, normal ENT inspection, TMs normal Neck: non-tender, normal alignment, supple, normal inspection Cardiovascular: normal peripheral pulses, normal rate, regular rhythm, no gallop/murmur, no JVD Respiratory/Chest: chest wall non-tender, lungs clear, normal breath sounds, no respiratory distress, no accessory muscle use Abdomen: normal bowel sounds, non tender, soft, no organomegaly, no mass Extremities: normal range of motion, non-tender Neurologic: 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 See ID note (2) Clostridium difficile diarrhea Assessment & Plan: S/P oral vanco Day #10/ per ID (3) Failure to thrive (4) Cellulitis of right lower extremity Assessment & Plan: S/P antibiotic (5) Osteomyelitis Assessment & Plan: Right great toe. S/P antibiotic (6) Hemorrhage of gastrointestinal tract (7) Diabetes mellitus, type II Assessment & Plan: Continue novolog sliding scale. (8) HTN (hypertension) (9) Hypercholesteremia (10) S/P BKA (below knee amputation) unilateral (11) GERD (gastroesophageal reflux disease) (12) Gastritis (13) Fever Assessment & Plan: Low grade-see ID note. Status: stable Assessment/Plan Discharge planning: [facility] when bed available. Daniel Tafoya MD Aug 20, 2017 17:44
[2017-08-20 20:00] VITALS: BP 133/80
[2017-08-21] VITALS: BP 137/77
[2017-08-21 04:00] VITALS: BP 124/76
[2017-08-21] MEDS: NovoLOG Insulin Flexpen SUBQ SCH ×2 (05:58→21:06)
[2017-08-21] MEDS: sitaGLIPtin 50mg tab ORAL SCH (06:00)
[2017-08-21 08:00] VITALS: BP 116/62
[2017-08-21] MEDS: Heparin 5000 units/ml inj SUBQ SCH ×2 (08:26→21:07)
[2017-08-21 12:00] VITALS: BP 150/92
--- NOTE | 2017-08-21 13:39 | Internal Med Progress Note ---
Subjective Date of Service: Aug 21, 2017 Physician Name Daniel Tafoya Attending Physician Tello Fay MD Current Medications Medications (Trade) Dose Ordered Sig/Caden Route PRN Reason Start Time Stop Time Status Last Admin Dose Admin Acetaminophen (Tylenol) 650 mg Q4H PRN ORAL fever 07/24/17 12:00 08/23/17 11:59 Al Hydroxide/Mg Hydroxide (Mylanta II) 30 ml Q6H PRN ORAL dyspepsia 07/24/17 12:00 08/23/17 11:59 Dextrose (Dextrose 50%) STAT PRN IV Hypoglycemia 07/24/17 12:00 08/23/17 11:59 Heparin Sodium (Porcine) (Heparin 5000 units/ml) 5,000 units EVERY 12 HOURS SUBQ 07/24/17 21:00 08/23/17 20:59 08/21/17 08:26 Pantoprazole (Protonix) 40 mg DAILY ORAL 07/25/17 09:00 08/24/17 08:59 08/21/17 08:26 Sitagliptin Phosphate (Januvia) 50 mg ACBREAKFAST ORAL 07/25/17 06:30 08/24/17 06:29 08/21/17 06:00 Allergies: Coded Allergies: No Known Allergies (Unverified , 11/16/14) ROS Limited/Unobtainable: No Constitutional: Reports: no symptoms HEENT: Reports: no symptoms Cardiovascular: Reports: no symptoms Respiratory: Reports: no symptoms Gastrointestinal/Abdominal: Reports: no symptoms Genitourinary: Reports: no symptoms Neurologic/Psychiatric: Reports: no symptoms Subjective 66 YO M admitted with C. Diff diarrhea. Cover for Int Med-Dr Fay. Await placement Objective Last Vital Signs Date Time Temp Pulse Resp B/P (MAP) Pulse Ox O2 Delivery O2 Flow Rate FiO2 08/21/17 12:00 97.7 71 18 150/92 98 Room Air 97.7 Intake and Output 08/20/17 08/21/17 19:00 07:00 Intake Total 1200 ml 600 ml Output Total 1000 ml 600 ml Balance 200 ml 0 ml Intake Oral 1200 ml 600 ml Output Urine Total 1000 ml 600 ml # Voids 3 2 Objective General Appearance: WD/WN, no apparent distress, alert, other - disheveled EENT: PERRL/EOMI, normal ENT inspection, TMs normal Neck: non-tender, normal alignment, supple, normal inspection Cardiovascular: normal peripheral pulses, normal rate, regular rhythm, no gallop/murmur, no JVD Respiratory/Chest: chest wall non-tender, lungs clear, normal breath sounds, no respiratory distress, no accessory muscle use Abdomen: normal bowel sounds, non tender, soft, no organomegaly, no mass Extremities: normal range of motion, non-tender Neurologic: 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 See ID note (2) Clostridium difficile diarrhea Assessment & Plan: S/P oral vanco Day #10/10 per ID (3) Failure to thrive (4) Cellulitis of right lower extremity Assessment & Plan: S/P antibiotic (5) Osteomyelitis Assessment & Plan: Right great toe. S/P antibiotic (6) Hemorrhage of gastrointestinal tract (7) Diabetes mellitus, type II Assessment & Plan: Continue novolog sliding scale. (8) HTN (hypertension) (9) Hypercholesteremia (10) S/P BKA (below knee amputation) unilateral (11) GERD (gastroesophageal reflux disease) (12) Gastritis (13) Fever Assessment & Plan: Low grade-see ID note. Assessment/Plan Discharge planning: SNF when bed available. Daniel Tafoya MD Aug 21, 2017 13:39
[2017-08-21 16:00] VITALS: BP 149/85
[2017-08-21 20:00] VITALS: BP 143/87
[2017-08-22 04:00] VITALS: BP 127/78
[2017-08-22] MEDS: sitaGLIPtin 50mg tab ORAL SCH (06:22)
[2017-08-22] MEDS: NovoLOG Insulin Flexpen SUBQ SCH ×4 (06:29→20:40)
[2017-08-22 08:00] VITALS: BP 94/59
[2017-08-22] MEDS: Heparin 5000 units/ml inj SUBQ SCH ×2 (08:15→20:41)
--- NOTE | 2017-08-22 10:36 | Infectious Diseases Prog Note ---
Assessment/Plan Assessment/Plan Assessment: Sepsis , SP Severe Cdiff; , resolved , s/p Rx -Cdiff + -CXR: Suggestion of mild basal atelectasis. Correlate clinically -u/a wbc 2/4, nit +, leuk +2; ucx mixed gram positive growth Bcx Neg Leukocytosis, SP Low grade fever, SP MENG, improving Recent Right foot cellulitis and right big toe. osteo , s/p Rx -MRI R foot: Findings suspicious for osteomyelitis of the distal aspect of the first distal phalanx -wound cx E.fecalis ([place] S), CoNS (likely represents colonizers) -RP : 2.4 => 07/02 : 0.4 -06/28 ESR : 74 => 07/02 : 31 Recent Coffee ground Emesis 2ry to diffuse gastitis -s/p EGD 07/08: Diffuse gastritis, status post biopsy, otherwise normal upper endoscopic examination. Diabetes. Hyperlipidemia. Hypertension. Left BKA. History of alcohol abuse and smoking until recently. chronic thrombosis of superficial femoral vein. Plan: - Monitor pt off of AB Rx - 07/31 PO Vancomycin 125mg qid abx d# 10 for C Diff. ( shorten AB Rx to 10 d , in view of rapid response ) - 07/22 SP PO Flagyl #2 - 07/21 SP IV Vanco and Unasyn x1 - 07/01 SP IV vancomycin and Ceftriaxone and Flagyl ( ABx d# 42/42 ) - 05/24 SP Cefepime #4 -Monitor CBC/BMP, temperatures -contact precautions -wound care/prevention per hospital protocol -discharge planning Subjective Constitutional: Denies: no symptoms, fever, chills, fatigue, anorexia, drenching sweats, other Allergies: Coded Allergies: No Known Allergies (Unverified , 11/16/14) Subjective no diarrhea today Objective Vital Signs Last 24 Hour Vital Signs Date Time Temp Pulse Resp B/P (MAP) Pulse Ox O2 Delivery O2 Flow Rate FiO2 08/22/17 08:00 97.5 73 18 94/59 98 Room Air 97.5 08/22/17 04:00 97.7 78 18 127/78 98 Room Air 97.7 08/21/17 20:00 97.3 73 18 143/87 95 Room Air 97.3 08/21/17 16:00 97.7 66 18 149/85 94 Room Air 97.7 08/21/17 12:00 97.7 71 18 150/92 98 Room Air 97.7 Height (Feet): 5 Height (Inches): 5.00 Weight (Pounds): 142 HEENT: anicteric Respiratory/Chest: normal breath sounds Cardiovascular: regular rhythm Abdomen: no organomegaly Current Medications Medications (Trade) Dose Ordered Sig/Caden Route PRN Reason Start Time Stop Time Status Last Admin Dose Admin Acetaminophen (Tylenol) 650 mg Q4H PRN ORAL fever 07/24/17 12:00 09/20/17 11:59 Al Hydroxide/Mg Hydroxide (Mylanta II) 30 ml Q6H PRN ORAL dyspepsia 07/24/17 12:00 09/20/17 11:59 Dextrose (Dextrose 50%) STAT PRN IV Hypoglycemia 07/24/17 12:00 09/20/17 11:59 Heparin Sodium (Porcine) (Heparin 5000 units/ml) 5,000 units EVERY 12 HOURS SUBQ 07/24/17 21:00 09/20/17 20:59 08/22/17 08:15 Insulin Aspart (NovoLOG) BEFORE MEALS AND HS SUBQ 08/21/17 21:00 09/20/17 20:59 08/22/17 06:29 Pantoprazole (Protonix) 40 mg DAILY ORAL 07/25/17 09:00 09/20/17 08:59 08/22/17 08:12 Sitagliptin Phosphate (Januvia) 50 mg ACBREAKFAST ORAL 07/25/17 06:30 09/20/17 06:29 08/22/17 06:22 Yuriy Kelsey MD Aug 22, 2017 10:36
[2017-08-22 12:11] VITALS: BP 114/66
--- NOTE | 2017-08-22 12:38 | Internal Med Progress Note ---
Subjective Date of Service: Aug 22, 2017 Physician Name Daniel Tafoya Attending Physician Tello Fay MD Current Medications Medications (Trade) Dose Ordered Sig/Caden Route PRN Reason Start Time Stop Time Status Last Admin Dose Admin Acetaminophen (Tylenol) 650 mg Q4H PRN ORAL fever 07/24/17 12:00 09/20/17 11:59 Al Hydroxide/Mg Hydroxide (Mylanta II) 30 ml Q6H PRN ORAL dyspepsia 07/24/17 12:00 09/20/17 11:59 Dextrose (Dextrose 50%) STAT PRN IV Hypoglycemia 07/24/17 12:00 09/20/17 11:59 Heparin Sodium (Porcine) (Heparin 5000 units/ml) 5,000 units EVERY 12 HOURS SUBQ 07/24/17 21:00 09/20/17 20:59 08/22/17 08:15 Insulin Aspart (NovoLOG) BEFORE MEALS AND HS SUBQ 08/21/17 21:00 09/20/17 20:59 08/22/17 12:00 Pantoprazole (Protonix) 40 mg DAILY ORAL 07/25/17 09:00 09/20/17 08:59 08/22/17 08:12 Sitagliptin Phosphate (Januvia) 50 mg ACBREAKFAST ORAL 07/25/17 06:30 09/20/17 06:29 08/22/17 06:22 Allergies: Coded Allergies: No Known Allergies (Unverified , 11/16/14) ROS Limited/Unobtainable: No Constitutional: Reports: no symptoms HEENT: Reports: no symptoms Cardiovascular: Reports: no symptoms Respiratory: Reports: no symptoms Gastrointestinal/Abdominal: Reports: no symptoms Genitourinary: Reports: no symptoms Neurologic/Psychiatric: Reports: no symptoms Subjective 66 YO M admitted with C. Diff diarrhea. Cover for Int Med-Dr Fay. Await placement Objective Last Vital Signs Date Time Temp Pulse Resp B/P (MAP) Pulse Ox O2 Delivery O2 Flow Rate FiO2 08/22/17 12:11 97.6 78 18 114/66 99 Room Air 97.6 Intake and Output 08/21/17 08/22/17 19:00 07:00 Intake Total 480 ml 240 ml Output Total 750 ml 1200 ml Balance -270 ml -960 ml Intake Oral 480 ml 240 ml Output Urine Total 750 ml 1200 ml # Voids 1 Objective General Appearance: WD/WN, no apparent distress, alert, other - disheveled EENT: PERRL/EOMI, normal ENT inspection, TMs normal Neck: non-tender, normal alignment, supple, normal inspection Cardiovascular: normal peripheral pulses, normal rate, regular rhythm, no gallop/murmur, no JVD Respiratory/Chest: chest wall non-tender, lungs clear, normal breath sounds, no respiratory distress, no accessory muscle use Abdomen: normal bowel sounds, non tender, soft, no organomegaly, no mass Extremities: normal range of motion, non-tender 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 See ID note (2) Clostridium difficile diarrhea Assessment & Plan: S/P oral vanco Day #10 per ID (3) Failure to thrive (4) Cellulitis of right lower extremity Assessment & Plan: S/P antibiotic (5) Osteomyelitis Assessment & Plan: Right great toe. S/P antibiotic (6) Hemorrhage of gastrointestinal tract (7) Diabetes mellitus, type II Assessment & Plan: Continue novolog sliding scale. (8) HTN (hypertension) (9) Hypercholesteremia (10) S/P BKA (below knee amputation) unilateral (11) GERD (gastroesophageal reflux disease) (12) Gastritis (13) Fever Assessment & Plan: Low grade-see ID note. (14) Homelessness Assessment & Plan: Await placement Assessment/Plan Discharge planning: SNF when bed available. Daniel Tafoya MD Aug 22, 2017 12:38
[2017-08-22 15:44] VITALS: BP 120/65
[2017-08-22 20:24] VITALS: BP 116/66
[2017-08-23 00:11] VITALS: BP 112/67
[2017-08-23 04:10] VITALS: BP 112/68
[2017-08-23] MEDS: sitaGLIPtin 50mg tab ORAL SCH (05:52)
[2017-08-23] MEDS: NovoLOG Insulin Flexpen SUBQ SCH ×3 (05:55→16:30)
[2017-08-23 08:00] VITALS: BP 111/61
[2017-08-23] MEDS: Heparin 5000 units/ml inj SUBQ SCH (08:32)
--- NOTE | 2017-08-23 11:29 | Infectious Diseases Prog Note ---
Assessment/Plan Assessment/Plan Assessment: Sepsis , SP Severe Cdiff; , resolved , s/p Rx -Cdiff + -CXR: Suggestion of mild basal atelectasis. Correlate clinically -u/a wbc 2/4, nit +, leuk +2; ucx mixed gram positive growth Bcx Neg Leukocytosis, SP Low grade fever, SP MENG, improving Recent Right foot cellulitis and right big toe. osteo , s/p Rx -MRI R foot: Findings suspicious for osteomyelitis of the distal aspect of the first distal phalanx -wound cx E.fecalis ([place] S), CoNS (likely represents colonizers) -RP : 2.4 => 07/02 : 0.4 -06/28 ESR : 74 => 07/02 : 31 Recent Coffee ground Emesis 2ry to diffuse gastitis -s/p EGD 07/08: Diffuse gastritis, status post biopsy, otherwise normal upper endoscopic examination. Diabetes. Hyperlipidemia. Hypertension. Left BKA. History of alcohol abuse and smoking until recently. chronic thrombosis of superficial femoral vein. Plan: - Monitor pt off of AB Rx - 07/31 PO Vancomycin 125mg qid abx d# 10 for C Diff. ( shorten AB Rx to 10 d , in view of rapid response ) - 07/22 SP PO Flagyl #2 - 07/21 SP IV Vanco and Unasyn x1 - 07/01 SP IV vancomycin and Ceftriaxone and Flagyl ( ABx d# 42/42 ) - 05/24 SP Cefepime #4 -Monitor CBC/BMP, temperatures -contact precautions -wound care/prevention per hospital protocol -discharge planning Subjective Allergies: Coded Allergies: No Known Allergies (Unverified , 11/16/14) Subjective afebrile no leukocytosis off abx discharge planning Objective Vital Signs Last 24 Hour Vital Signs Date Time Temp Pulse Resp B/P (MAP) Pulse Ox O2 Delivery O2 Flow Rate FiO2 08/23/17 08:00 97.7 74 18 111/61 95 97.7 08/23/17 08:00 Room Air 08/23/17 04:10 97.8 72 16 112/68 96 97.8 08/23/17 04:00 Room Air 08/23/17 00:11 97.3 76 16 112/67 98 97.3 08/23/17 00:00 Room Air 6/10/18 20:26 Room Air 08/22/17 20:24 97.9 78 16 116/66 99 97.9 08/22/17 15:44 98.0 82 18 120/65 99 98.0 08/22/17 12:11 97.6 78 18 114/66 99 Room Air 97.6 Height (Feet): 5 Height (Inches): 5.00 Weight (Pounds): 142 Objective General Appearance: cachetic Lines, tubes and drains: peripheral HEENT: atraumatic, anicteric Neck: non-tender, normal alignment Respiratory/Chest: chest wall non-tender, lungs clear Cardiovascular/Chest: normal peripheral pulses, regular rhythm Abdomen: normal bowel sounds, non tender Skin Exam: no rash Current Medications Medications (Trade) Dose Ordered Sig/Caden Route PRN Reason Start Time Stop Time Status Last Admin Dose Admin Acetaminophen (Tylenol) 650 mg Q4H PRN ORAL fever 07/24/17 12:00 09/20/17 11:59 Al Hydroxide/Mg Hydroxide (Mylanta II) 30 ml Q6H PRN ORAL dyspepsia 07/24/17 12:00 09/20/17 11:59 Dextrose (Dextrose 50%) STAT PRN IV Hypoglycemia 07/24/17 12:00 09/20/17 11:59 Heparin Sodium (Porcine) (Heparin 5000 units/ml) 5,000 units EVERY 12 HOURS SUBQ 07/24/17 21:00 09/20/17 20:59 08/23/17 08:32 Insulin Aspart (NovoLOG) BEFORE MEALS AND HS SUBQ 08/21/17 21:00 09/20/17 20:59 08/23/17 05:55 Pantoprazole (Protonix) 40 mg DAILY ORAL 07/25/17 09:00 09/20/17 08:59 08/23/17 08:30 Sitagliptin Phosphate (Januvia) 50 mg ACBREAKFAST ORAL 07/25/17 06:30 09/20/17 06:29 08/23/17 05:52 Dena Frank M.D. Aug 23, 2017 11:29
[2017-08-23 12:00] VITALS: BP 134/83
--- NOTE | 2017-08-23 12:07 | Internal Med Progress Note ---
Subjective Date of Service: Aug 23, 2017 Physician Name Daniel Tafoya Attending Physician Tello Fay MD Current Medications Medications (Trade) Dose Ordered Sig/Caden Route PRN Reason Start Time Stop Time Status Last Admin Dose Admin Acetaminophen (Tylenol) 650 mg Q4H PRN ORAL fever 07/24/17 12:00 09/20/17 11:59 Al Hydroxide/Mg Hydroxide (Mylanta II) 30 ml Q6H PRN ORAL dyspepsia 07/24/17 12:00 09/20/17 11:59 Dextrose (Dextrose 50%) STAT PRN IV Hypoglycemia 07/24/17 12:00 09/20/17 11:59 Heparin Sodium (Porcine) (Heparin 5000 units/ml) 5,000 units EVERY 12 HOURS SUBQ 07/24/17 21:00 09/20/17 20:59 08/23/17 08:32 Insulin Aspart (NovoLOG) BEFORE MEALS AND HS SUBQ 08/21/17 21:00 09/20/17 20:59 08/23/17 11:49 Pantoprazole (Protonix) 40 mg DAILY ORAL 07/25/17 09:00 09/20/17 08:59 08/23/17 08:30 Sitagliptin Phosphate (Januvia) 50 mg ACBREAKFAST ORAL 07/25/17 06:30 09/20/17 06:29 08/23/17 05:52 Allergies: Coded Allergies: No Known Allergies (Unverified , 11/16/14) ROS Limited/Unobtainable: No Constitutional: Reports: no symptoms HEENT: Reports: no symptoms Cardiovascular: Reports: no symptoms Respiratory: Reports: no symptoms Gastrointestinal/Abdominal: Reports: no symptoms Genitourinary: Reports: no symptoms Neurologic/Psychiatric: Reports: no symptoms Subjective 66 YO M admitted with C. Diff diarrhea. Cover for Int Med-Dr Fay. [facility] today Objective Last Vital Signs Date Time Temp Pulse Resp B/P (MAP) Pulse Ox O2 Delivery O2 Flow Rate FiO2 08/23/17 08:00 97.7 74 18 111/61 95 97.7 08/23/17 08:00 Room Air Intake and Output 08/22/17 08/23/17 19:00 07:00 Intake Total 840 ml Output Total 1190 ml 700 ml Balance -350 ml -700 ml Intake Oral 840 ml Output Urine Total 1190 ml 700 ml Objective General Appearance: WD/WN, no apparent distress, alert, other - disheveled EENT: PERRL/EOMI, normal ENT inspection, TMs normal Neck: non-tender, normal alignment, supple, normal inspection Cardiovascular: normal peripheral pulses, normal rate, regular rhythm, no gallop/murmur, no JVD Respiratory/Chest: chest wall non-tender, lungs clear, normal breath sounds, no respiratory distress, no accessory muscle use Abdomen: normal bowel sounds, non tender, soft, no organomegaly, no mass Extremities: normal range of motion, non-tender 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 See ID note (2) Clostridium difficile diarrhea Assessment & Plan: S/P oral vanco Day #10/10 per ID (3) Failure to thrive (4) Cellulitis of right lower extremity Assessment & Plan: S/P antibiotic (5) Osteomyelitis Assessment & Plan: Right great toe. S/P antibiotic (6) Hemorrhage of gastrointestinal tract (7) Diabetes mellitus, type II Assessment & Plan: Continue novolog sliding scale. (8) HTN (hypertension) (9) Hypercholesteremia (10) S/P BKA (below knee amputation) unilateral (11) GERD (gastroesophageal reflux disease) (12) Gastritis (13) Fever Assessment & Plan: Low grade-see ID note. (14) Homelessness Assessment & Plan: Await placement Assessment/Plan Discharge planning: D/C to [facility] today when bed available. Daniel Tafoya MD Aug 23, 2017 12:07
--- NOTE | 2017-08-23 13:52 | Pulmonology Progress Note ---
Assessment/Plan Problems: (1) Cellulitis of right lower extremity (2) Tachycardia (3) Sepsis Assessment/Plan doing better VRE positiive med/surg check electrolytes all reviewed check labs periodically Subjective ROS Limited/Unobtainable: No Constitutional: Reports: no symptoms Respiratory: Reports: no symptoms Allergies: Coded Allergies: No Known Allergies (Unverified , 11/16/14) Objective Last 24 Hour Vital Signs Date Time Temp Pulse Resp B/P (MAP) Pulse Ox O2 Delivery O2 Flow Rate FiO2 08/23/17 12:00 Room Air 08/23/17 12:00 97.5 77 19 134/83 99 97.5 08/23/17 08:00 97.7 74 18 111/61 95 97.7 08/23/17 08:00 Room Air 08/23/17 04:10 97.8 72 16 112/68 96 97.8 08/23/17 04:00 Room Air 08/23/17 00:11 97.3 76 16 112/67 98 97.3 08/23/17 00:00 Room Air 08/22/17 20:26 Room Air 08/22/17 20:24 97.9 78 16 116/66 99 97.9 08/22/17 15:44 98.0 82 18 120/65 99 98.0 Intake and Output 08/22/17 08/23/17 19:00 07:00 Intake Total 840 ml Output Total 1190 ml 700 ml Balance -350 ml -700 ml Intake Oral 840 ml Output Urine Total 1190 ml 700 ml Objective General Appearance: WD/WN HEENT: normocephalic Respiratory/Chest: chest wall non-tender, lungs clear Cardiovascular: normal peripheral pulses, normal rate Abdomen: normal bowel sounds, soft, non tender Genitourinary: normal external genitalia Extremities: no clubbing 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/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 normal Current Medications Medications (Trade) Dose Ordered Sig/Caden Route PRN Reason Start Time Stop Time Status Last Admin Dose Admin Acetaminophen (Tylenol) 650 mg Q4H PRN ORAL fever 07/24/17 12:00 09/20/17 11:59 Al Hydroxide/Mg Hydroxide (Mylanta II) 30 ml Q6H PRN ORAL dyspepsia 07/24/17 12:00 09/20/17 11:59 Dextrose (Dextrose 50%) STAT PRN IV Hypoglycemia 07/24/17 12:00 09/20/17 11:59 Heparin Sodium (Porcine) (Heparin 5000 units/ml) 5,000 units EVERY 12 HOURS SUBQ 07/24/17 21:00 09/20/17 20:59 08/23/17 08:32 Insulin Aspart (NovoLOG) BEFORE MEALS AND HS SUBQ 08/21/17 21:00 09/20/17 20:59 08/23/17 11:49 Pantoprazole (Protonix) 40 mg DAILY ORAL 07/25/17 09:00 09/20/17 08:59 08/23/17 08:30 Sitagliptin Phosphate (Januvia) 50 mg ACBREAKFAST ORAL 07/25/17 06:30 09/20/17 06:29 08/23/17 05:52 Kyra Massey MD Aug 23, 2017 13:52
[2017-08-23 16:00] VITALS: BP 129/79
--- NOTE | 2017-08-24 10:05 | Discharge Summary ---
Discharge Summary Hospital Course Date of Admission July 21, 2017 at 19:53 Date of Discharge Aug 23, 2017 at 16:20 Admitting Diagnosis cellulitis RIGHT LOWER EXTREMITY,SEPSIS HPI [place] Lozano is a 66 year old male who was admitted on July 21, 2017 at 19:53 for Cellulitis Right Lower Extremety/Sepsis Hospital Course dc summary #[id number] Discharge Medications Continued Medications: Clotrimazole* (Lotrimin*) 15 Gm Cream..g. 1 APPLIC TOPIC BID for 30 Days, GM Insulin Aspart (Novolog Flexpen) 100 Unit/1 Ml Insuln.pen 0 UNITS SUBQ BEFORE MEALS AND HS for 30 Days, EA Metformin Hcl* (Glucophage*) 500 Mg Tablet 500 MG ORAL TIAC for 30 Days, TAB Pantoprazole* (Protonix*) 40 Mg Tablet.dr 40 MG ORAL ACBREAKFAST for 30 Days, TAB Sitagliptin (Januvia) 50 Mg Tablet 50 MG ORAL ACBREAKFAST for 30 Days, TAB Sodium Hypochlorite (Dakin's) 473 Ml Solution 1 APPLIC TOPIC DAILY for 30 Days, ML Discharge Condition Upon Discharge: stable Discharge Disposition Patient was discharged to SNF/Subacute Facility(03) Discharge Instructions Discharge Instructions Special Instructions I have been assigned to complete a D/C Summary on this account. I was not involved in the patient management Waleska Bhakta NP Aug 24, 2017 10:05
--- NOTE | 2017-08-24 19:45 | Discharge Summary 2 SIG ---
DATE OF ADMISSION: 07/21/2017 DATE OF DISCHARGE: 08/23/2017 REASON FOR ADMISSION: The patient is a 66-year-old male with past medical history significant for left below-knee amputation; diabetes mellitus with neuropathy; hypertension; hyperlipidemia; right foot osteomyelitis of right great toe, status post treatment; chronic gastritis; and history of alcohol abuse, was brought to emergency department for failure to thrive. The patient was found on the street. He denied pain, but reported some chills. He denied fever. He denied nausea or vomiting, but reported frequent bowel movement. Upon evaluation in the emergency room, vital signs were stable. No fever. Pulse oximetry stable on room air. WBC 26.8. Sodium 123 and glucose 293. Lactic acid 4.6. EKG revealed sinus tachycardia. No acute ischemic changes. Chest x-ray revealed no acute cardiopulmonary pathology. Troponin was within normal limits. Elevated CRP of 16. Urinalysis was consistent with evidence of UTI. Creatinine was 1.4, BUN 25, CO2 50, and anion gap 19. In the emergency department, the patient was given one liter of normal saline bolus. The patient was pancultured and started on antibiotics and the patient admitted for further management with diagnoses of sepsis, urinary tract infection, hyponatremia, lactic acidosis, acute kidney injury, diabetes mellitus, and diabetic peripheral neuropathy. CONSULTANTS: 1. Kyra Massey M.D., food specialist/shoulder pad molder. 2. Yuriy Kelsey M.D., Infectious Disease specialist. HOSPITAL COURSE: The patient was admitted. The patient was started on IV hydration. Stool for C. difficile was positive for C. difficile infection. Stool culture was negative. Urine culture revealed mixed gram-positive organism with small colony count. The patient was on treatment for C. difficile colitis and symptomatic treatment. Blood pressure was managed with current regimen and remained stable. Blood sugar was managed with sliding scale of insulin and oral anti-glycemic and remained stable. Acute kidney injury present on admission resolved. Creatinine down to 0.9 on the last blood test. Hyponatremia improved with hydration. Last sodium 137. The patient status post treatment with antibiotics. Leukocytosis resolved. No fever. The patient was working with physical and occupational therapist. GI prophylaxis provided. Supportive care provided. DVT prophylaxis provided. The patient had challenging placement. Finally, placement was found and secured at the half-way facility at [facility]. The patient was stable for discharge. FINAL DIAGNOSES: 1. Sepsis. 2. Severe Clostridium difficile colitis, status post treatment. 3. Diabetes mellitus type 2. 4. Diabetic peripheral neuropathy. 5. Left below-knee amputation. 6. Hypertension. 7. Hypercholesterolemia. 8. Gastroesophageal reflux disease. 9. History of alcoholic gastritis with recent coffee-ground emesis. Of note, an EGD was on 07/08/2017 and revealed diffuse gastritis. No other acute changes. Hemoglobin and hematocrit remained stable. No need for transfusion with a goal to keep hemoglobin above 7. 10. Acute kidney injury, resolved. 11. Hyponatremia, resolved. 12. Lactic acidosis, resolved. DISCHARGE MEDICATIONS: See medication reconciliation list. DISCHARGE INSTRUCTIONS: The patient discharged to half-way facility. FOLLOWUP: Follow up with medical doctor at the facility. Tello Fay M.D. I have been assigned to dictate discharge summary on this account and I was not involved in the patient's management. Waleska [facility] hospital[facility]: RACHEL JOB#: [id number] CC:
== END 2017-08-23 16:20 | DRG 720 ==
LOC: EDBD 19:02 → EMR 19:50 → 2E 19:53 → EDBEDREQ 22:20 → EDBEDREQSVC 22:20 → EDBEDREQ 22:21 → 4W 07-23 18:48
DX: A41.4 Sepsis due to anaerobes (principal); N17.9 Acute kidney failure, unspecified; E87.2 Acidosis; K92.0 Hematemesis; A04.72 Enterocolitis due to Clostridium difficile, not specified as recurrent; N39.0 Urinary tract infection, site not specified; R62.7 Adult failure to thrive; E87.1 Hypo-osmolality and hyponatremia; Z89.512 Acquired absence of left leg below knee; L03.115 Cellulitis of right lower limb; E11.42 Type 2 diabetes mellitus with diabetic polyneuropathy; Z79.4 Long term (current) use of insulin; M86.671 Other chronic osteomyelitis, right ankle and foot; E78.00 Pure hypercholesterolemia, unspecified; K21.9 Gastro-esophageal reflux disease without esophagitis; Z86.73 Personal history of transient ischemic attack (TIA), and cerebral infarction without residual deficits; K29.50 Unspecified chronic gastritis without bleeding; F10.11 Alcohol abuse, in remission
CPT/HCPCS: 36415; 71045; 80048; 80053; 80061; 81003; 82550; 82553; 82962; 83605; 84484; 85007; 85025; 85651; 86140; 87040; 87045; 87081; 87086; 87324; 93005; 93926; 99285; J1815; J8499